=== PATIENT | female | born 1945 | race Caucasian/White ===

== ENCOUNTER 2016-03-27 20:57 | Outpatient (CLI) | payer MEDICARE ==
[~2016-03-27 20:57] MED LIST: ALPR0.5T7 PO; AMLO5TAB2 PO; ATOR20TA66 PO; BIMA2.5D4 OU; CALC-6 PO; CHLO25TA22 PO; CLON0.1T PO; CYCL10TA9 PO; DICL75TA2 PO; DULO60CA58 PO; FLUT1DIS28 IH; FURO-124 PO; LISI40TA PO; NFNEB10T PO; OXYC-197 PO; POTA-53 PO; PRED10TA22 PO; RT-ALBUINH IH; TIMO5DRO27 OU; TRAM50TA2 PO
--- OUTSIDE RECORDS SUMMARY | 2016-03-27 21:01 | XMS REPORT | Continuity of Care Document ---
Author Author [facility] Organization 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 If you do not see the information that you expected, contact Release of Information in the Health Information Management department at [phone] for further assistance in locating additional records.[facility] Active Allergies and Adverse Reactions No Known Allergies Current Medications Prescription Sig. Disp. Refills Start End Date Status Date LUMIGAN 0.01 % drop Apply 1 Drop to both eyes 10/04/19 Active at bedtime daily. 16 timolol (TIMOPTIC) 0.5 % Apply 1 Drop to both eyes 10/04/19 Active ophthalmic solution daily. 16 cycloSPORINE (RESTASIS) Place 1 Drop into or Active 0.05 % ophthalmic around eye(s) twice emulsion daily. atorvastatin (LIPITOR) 20 Take 20 mg by mouth 10/03/19 Active mg tablet daily. 16 lisinopril (PRINIVIL, Take 40 mg by mouth 10/03/19 Active ZESTRIL) 40 mg tablet daily. 16 chlorthalidone (HYGROTON) Take 25 mg by mouth 10/03/19 Active 25 mg tablet daily. 16 cloNIDine HCl (CATAPRESS) Take 0.1 mg by mouth 10/03/19 Active 0.1 mg tablet twice daily. 16 BYSTOLIC 10 mg tablet Take 10 mg by mouth twice 10/03/19 Active daily[address] (CYMBALTA) Take 60 mg by mouth at 10/03/19 Active 60 mg capsule bedtime daily. [address] Take 75 mg by mouth 10/03/19 Active (VOLTAREN) 75 mg tablet daily. 16 traMADol (ULTRAM) 50 mg Take 50 mg by mouth 10/04/19 Active tablet daily. 16 ALPRAZolam (XANAX) 0.5 mg Take 0.5 mg by mouth at 10/02/19 Active tablet bedtime daily. 0.25 to 16 0.5 tab at bedtime sulfamethoxazole-trimetho Take 1 Tab by mouth 10/09/19 Active prim (BACTRIM DS) 800-160 daily. 16 mg tablet aspirin 325 mg tablet Take 325 mg by mouth Active daily. Take with food. metroNIDAZOLE(+) Apply topically to Active (METROCREAM; VITAZOL; affected area twice ROSADAN) 0.75 % topical daily. cream hydrocortisone 1 % Apply topically to Active topical cream affected area twice daily. Active Problems Problem Noted Date Arthritis of foot 10/11/2015 Social History Tobacco Use Types Packs/Day Years Used Date Never Smoker Smokeless Tobacco: Never Used Tobacco Cessation: Counseling Given: Yes Comments: Alcohol Use Drinks/Week oz/Week Comments No Last Filed Vital Signs Vital Sign Reading Time Taken Blood Pressure - - Pulse - - Temperature - - Respiratory Rate - - Height 1.676 m (5' 6") 10/10/2015 1:01 PM CDT Weight 77.111 kg (170 lb) 10/10/2015 1:01 PM CDT Body Mass Index 27.45 10/10/2015 1:01 PM CDT Oxygen Saturation - - Plan of Care Health Maintenance Due Date Last Done Comments Hepatitis C Screening 1945 Physical (Comprehensive) 06/13/1954 Exam Pertussis Vaccine 06/13/1958 Tetanus Vaccine 06/13/1964 Breast Cancer Screening 1987 Colorectal Cancer 06/13/1997 Screening Shingles Vaccine 2007 Osteoporosis Screening 06/13/2012 Prevnar/Pneumovax (#1) 06/13/2012 Influenza Vaccine 10/12/2015 Procedures from Last 3 Months Procedure Name Priority Date/Time Associated Diagnosis Comments PROCEDURE RECORD-SCAN 02/06/2016 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 Results from Last 3 Months PROCEDURE RECORD-SCAN (02/06/2016 1:22 PM) Narrative Ordered by an unspecified provider.
== END 2016-03-28 06:40 | disposition home or self-care (01) ==
LOC: SLEEP 20:57
PROVIDERS: ATTEND Nurse Practitioner
DX: G47.10 Hypersomnia, unspecified (principal); R06.83 Snoring; I50.9 Heart failure, unspecified
CPT/HCPCS: 95810

== ENCOUNTER → 2016-05-28 | Outpatient (CLI) | payer MEDICARE ==
--- NOTE | 2016-05-29 18:09 | Diagnostic Imaging Report ---
Bilateral screening mammogram. The current study was also evaluated with a Computer Aided Detection (CAD) system. INDICATION: Screening. No current complaints stated on the questionnaire. COMPARISON: 05/23/15. FINDINGS: The breasts are composed of scattered fibroglandular densities. There is no mass, architectural distortion or suspicious cluster of calcification. Allowing for technique and positional differences, no suspicious change is seen. IMPRESSION: No significant change. ACR BI-RADS Category 2: Benign findings. Result letter will be mailed to the patient. Note: At least 10% of breast cancer is not imaged by mammography. Dictated by: Dictated on workstation # [id number]
== END ==
LOC: RAD 11:00
PROVIDERS: ATTEND Internal Medicine
DX: Z12.31 Encounter for screening mammogram for malignant neoplasm of breast (principal)
CPT/HCPCS: 77067

== ENCOUNTER → 2017-04-22 | Outpatient (CLI) | payer MEDICARE ==
--- NOTE | 2017-04-22 19:03 | Diagnostic Imaging Report ---
Left hip. INDICATION: Hip pain. Two views are obtained. FINDINGS: There is deformity of the pubic rami bilaterally. This would coincide with the findings of the previous CT pelvis exam of 03/18/12 which revealed fractures of the pubic rami. There is no acute bony abnormality identified. There is only mild degenerative disease of the hip joint. The soft tissues are unremarkable. IMPRESSION: There are posttraumatic changes involving the pubic rami but there is no evidence for an acute bony abnormality. Dictated by: Dictated on workstation # [id number]
== END ==
LOC: RAD 14:57
PROVIDERS: ATTEND Physician Assistant
DX: M54.16 Radiculopathy, lumbar region (principal)
CPT/HCPCS: 73502

== ENCOUNTER → 2017-06-26 | Outpatient (CLI) | payer MEDICARE | LOC: CARD 12:21 | PROVIDERS: ATTEND Nurse Practitioner Family | DX: I10 Essential (primary) hypertension (principal); I34.1 Nonrheumatic mitral (valve) prolapse; R06.09 Other forms of dyspnea | CPT/HCPCS: 93306 ==

== ENCOUNTER → 2017-06-30 | Outpatient (CLI) | payer MEDICARE ==
[2017-06-30 15:02] LABS: HEMOGLOBIN 13.2 G/DL (11.5-16.0); MEAN PLATELET VOLUME 8.8 FL (7.4-10.4); RED BLOOD COUNT 4.37 10^6/uL (4.35-5.85); RED CELL DISTRIBUTION WIDTH 12.6 % (10.0-14.5); WHITE BLOOD COUNT 6.1 10^3/uL (4.3-11.0)
[2017-06-30 15:24] LABS: ALANINE AMINOTRANSFERASE 20 U/L (0-55); ALBUMIN 4.2 GM/DL (3.2-4.5); ALKALINE PHOSPHATASE 65 U/L (40-136); BILIRUBIN,TOTAL 0.2 MG/DL (0.1-1.0); BUN/CREATININE RATIO 13; CALCIUM 9.6 MG/DL (8.5-10.1); CARBON DIOXIDE 31 MMOL/L (21-32); CHLORIDE 102 MMOL/L (98-107); GFR ESTIMATED > 60; GLUCOSE 118 MG/DL (70-105); POTASSIUM 3.9 MMOL/L (3.6-5.0); SODIUM 140 MMOL/L (135-145); TOTAL PROTEIN 7.1 GM/DL (6.4-8.2)
--- NOTE | 2017-06-30 16:05 | Diagnostic Imaging Report ---
INDICATION: Preop for ankle replacement surgery. TIME OF EXAM: 3:33 p.m. COMPARISON: Comparison is made with prior chest from 10/31/2015. FINDINGS: The heart size is stable. The lungs are clear of acute infiltrates. No effusion or pneumothorax is detected. IMPRESSION: No acute cardiopulmonary process is detected. Dictated by: Dictated on workstation # [id number]
== END ==
LOC: RAD 14:30
PROVIDERS: ATTEND Orthopaedic Surgery
DX: Z01.818 Encounter for other preprocedural examination (principal)
CPT/HCPCS: 36415; 71045; 80053; 85027

== ENCOUNTER → 2017-09-22 | Outpatient (CLI) | payer MEDICARE ==
[2017-09-22 14:08] LABS: BASOPHILS % (AUTO) 0 % (0-10); EOSINOPHILS # (AUTO) 0.4 10^3/uL (0.0-0.3); EOSINOPHILS % (AUTO) 4 % (0-10); HEMATOCRIT 35 % (35-52); HEMOGLOBIN 11.4 G/DL (11.5-16.0); LYMPHOCYTES % (AUTO) 10 % (12-44); MEAN CORPUSCULAR HEMOGLOBIN 30 PG (25-34); MEAN CORPUSCULAR HGB CONC 33 G/DL (32-36); MEAN CORPUSCULAR VOLUME 90 FL (80-99); MEAN PLATELET VOLUME 9.9 FL (7.4-10.4); MONOCYTES # (AUTO) 0.9 X 10^3 (0.0-1.0); MONOCYTES % (AUTO) 9 % (0-12); NEUTROPHILS # (AUTO) 7.9 X 10^3 (1.8-7.8); NEUTROPHILS % (AUTO) 77 % (42-75); PLATELET COUNT 367 10^3/uL (130-400); RED BLOOD COUNT 3.83 10^6/uL (4.35-5.85); RED CELL DISTRIBUTION WIDTH 12.2 % (10.0-14.5); WHITE BLOOD COUNT 10.3 10^3/uL (4.3-11.0)
[2017-09-22 14:35] LABS: ERYTHROCYTE SEDIMENTATION RATE 125 MM/HR (0-30)
[2017-09-22 17:39] LABS: ALBUMIN 3.7 GM/DL (3.2-4.5); BILIRUBIN,TOTAL 0.3 MG/DL (0.1-1.0); CREATININE SERUM 1.05 MG/DL (0.60-1.30); POTASSIUM 3.1 MMOL/L (3.6-5.0); TOTAL PROTEIN 7.9 GM/DL (6.4-8.2)
== END ==
LOC: HH 08:00
PROVIDERS: ATTEND Internal Medicine
DX: T84.7XXA Infection and inflammatory reaction due to other internal orthopedic prosthetic devices, implants and grafts, initial encounter (principal)
CPT/HCPCS: 80053; 82550; 85025; 85652; 86141

== ENCOUNTER 2017-09-23 15:51 | Emergency (ER) | payer MEDICARE ==
[~2017-09-23] VITALS: Ht 167.6 cm; Wt 72.6 kg
--- OUTSIDE RECORDS SUMMARY | 2017-09-23 16:34 | XMS REPORT | Clinical Summary ---
Author Author [facility] Organization [facility] Address Unknown Phone Unavailable Care Team Providers Care Body Technician/Painter Name Role Phone Joao Mccabe MD Unavailable Vadim Waggoner MD PCP Source Comments Some departments are not documenting in the electronic medical record. If you do not see the information that you expected, contact Release of Information in the Health Information Management department at [phone] for further assistance in locating additional records.[facility] Allergies Active Allergy Reactions Severity Noted Date Comments Cefazolin RASH Medium 08/30/2017 Rash over trunk. Current Medications Prescription Sig. Disp. Refills Start [...] mouth 10/03/19 Active mg tablet daily. [address] (CYMBALTA) Take 90 mg by mouth at 10/03/19 Active 30 mg capsule bedtime daily. 16 ALPRAZolam (XANAX) 0.25 Take 0.25 mg by mouth at 10/02/19 Active mg tablet bedtime daily. 16 aspirin 325 mg tablet Take 325 mg by mouth Active daily. Take with food. ibandronate sodium Administer through vein. Active (BONIVA IV) potassium chloride SR Take 20 mEq by mouth Active (K-DUR) 20 mEq tablet twice daily. Take with a meal and a full glass of water. amLODIPine (NORVASC) 10 Take 10 mg by mouth Active mg tablet daily. acetaminophen (TYLENOL) Take 1,000 mg by mouth Active 500 mg tablet three times daily as needed for Pain. FLAXSEED OIL PO Take 1 tablet by mouth Active twice daily. docusate (COLACE) 100 mg Take 1 capsule by mouth 180 capsule 3 Active capsule twice daily as needed for 18 Constipation. cholecalciferol(+) Take 2,000 Units by mouth Active (VITAMIN D-3) 2,000 unit daily. tablet calcium carbonate/vitamin Take 1 tablet by mouth Active D-3 (OSCAL-500+D) 1250 twice daily with meals. mg/200 unit tablet Calcium Carb 1250mg delivers 500mg elemental Ca metroNIDAZOLE(+) Apply topically to Active (METROCREAM; VITAZOL; affected area daily. ROSADAN) 0.75 % topical cream DAPTOmycin (CUBICIN) 500 Administer 9.5 mL through 1 each 09/02/19 Active mg/10 mL solr vein every 48 hours. 18 Increase to q24h is CrCl improves to > 30 ml/min HYDROcodone/acetaminophen Take 1-2 tablets by mouth 60 tablet 0 Active (NORCO) 5/325 mg tablet every 4 hours as needed 18 for Pain Earliest Fill Date: 09/01/17 rifAMPin (RIFADINE) 300 Take 1 capsule by mouth 0 09/03/19 Active mg capsule twice daily. Duration as 18 directed by Infectious Disease. Take on an empty stomach at least 1 hour before or 2 hours after food. BYSTOLIC 10 mg tablet Take 2 tablets by mouth 09/03/19 Active twice daily. 18 oxycodone(+) (ROXICODONE, Take 1 tablet by mouth 80 tablet 0 09/03/19 Active OXY-IR) 10 mg tablet every 4 hours as needed 18 for Pain ferrous sulfate (FEOSOL, Take 1 tablet by mouth 90 tablet 3 09/03/19 Active FEROSUL) 325 mg (65 mg daily. Take on an empty 18 iron) tablet stomach at least 1 hour before or 2 hours after food. nystatin (MYCOSTATIN) Take 5 mL by mouth four 0 09/03/19 Active 100,000 units/mL oral times daily. 18 suspensionIndications: oral candidiasis nebivolol (BYSTOLIC) 10 Take 2 tablets by mouth 09/03/19 Active mg tablet twice daily. 18 furosemide (LASIX) 40 mg Take 1 tablet by mouth 90 tablet 3 09/03/19 Active tablet every morning. Take 1 18 tablet by mouth every morning cloNIDine (CATAPRESS) 0.2 Take 1 tablet by mouth 180 tablet 3 Active mg tablet twice daily. 18 ranitidine(+) (ZANTAC) Take one tablet by mouth 60 tablet 0 09/23/19 10/23/19 Active 150 mg tabletIndications: twice daily for 30 days. 18 18 Nausea lisinopril (PRINIVIL, Take 40 mg by mouth 10/03/19 09/02/19 Discontin ZESTRIL) 40 mg tablet daily. 16 18 ued cloNIDine HCl (CATAPRESS) Take 0.1 mg by mouth 10/03/19 09/02/19 Discontin 0.1 mg tablet twice daily. 16 18 ued BYSTOLIC 10 mg tablet Take 10 mg by mouth twice 10/03/19 09/03/19 Discontin daily. 16 18 ued furosemide (LASIX) 40 mg Take 40 mg by mouth every 09/02/19 Discontin tablet morning. 18 ued CALCIUM PO Take by mouth. 08/26/19 Discontin 18 ued ergocalciferol (vitamin Take by mouth. 08/26/19 Discontin D2) (VITAMIN D PO) 18 ued oxyCODONE (ROXICODONE, Take 1-2 tablets by mouth 90 tablet 0 07/20/19 08/26/19 Discontin OXY-IR) 5 mg tablet every 3 hours as needed 18 18 ued ondansetron (ZOFRAN) 4 mg Take 1 tablet by mouth 30 tablet 0 07/22/19 08/26/19 Discontin tablet every 8 hours as needed 18 18 ued for Nausea or Vomiting. traMADol (ULTRAM) 50 mg Take 1 tablet by mouth 75 tablet 0 08/08/19 09/02/19 Discontin tablet every 6 hours as needed 18 18 ued for Pain. HYDROcodone/acetaminophen Take 1-2 tablets by mouth 09/02/19 Discontin (NORCO) 5/325 mg tablet every 4 hours as needed 18 ued for Pain cloNIDine (CATAPRESS) 0.2 Take 1 tablet by mouth 180 tablet 3 09/03/19 Discontin mg tablet twice daily. 18 18 ued furosemide (LASIX) 40 mg Take 1 tablet by mouth 90 tablet 3 09/02/19 09/03/19 Discontin tablet every morning. Take twice 18 18 ued daily for 1 week after discharge, decrease back to daily on 09/08/17 lisinopril (PRINIVIL, Hold until renal function 1 tablet 0 09/02/19 09/03/19 Discontin ZESTRIL) 40 mg tablet improves, follow up with 18 18 ued PCP cloNIDine (CATAPRESS) 0.2 Take 1 tablet by mouth 180 tablet 3 09/03/19 Discontin mg tablet twice daily. 18 18 ued Active Problems Problem Noted Date Wound infection 08/22/2017 Ankle arthritis 07/01/2017 Overview: Added automatically from request for surgery [id number] Arthritis of left foot 07/01/2017 Overview: Added automatically from request for surgery [id number] Arthritis of foot 10/11/2015 Encounters Date Type Specialty Care Team Description 09/23/2017 Outpt. Infectious Diseases Karina August, DO Antibiotic Therapy 09/22/2017 Telephone Infectious Diseases Karina August, DO Outpatient Antibiotic Therapy (Opat) 09/18/2017 Telephone Infectious Diseases Karina August, DO Outpatient Antibiotic Therapy (Opat) 09/16/2017 Office Visit Infectious Diseases Karina August, Wound infection (Primary Dx); Hardware complicating wound infection, subsequent encounter 09/16/2017 [facility] Radiology Joao Mccabe MD Arrived Encounter 09/16/2017 [facility] Radiology Joao Mccabe MD Arrived Encounter 09/16/2017 Office Visit Orthopedic Surgery Joao Mccabe MD Pain ( Primary Dx); Arthritis of foot 09/15/2017 Outpt. Infectious Diseases Karina August, Antibiotic Therapy 09/10/2017 Outpt. Infectious Diseases Karina August, DO Antibiotic Therapy 09/03/2017 Outpt. Infectious Diseases Tamiko Vargas MD Antibiotic Therapy 08/26/2017 Anesthesia Denisse Patton CRNA Event 08/26/2017 Procedure Pass 08/26/2017 Surgery Joao Mccabe MD DEBRIDEMENT LOWER EXTREMITY, ankle poly exchange 08/23/2017 Procedure Pass 08/23/2017 Surgery Cristobal Neely MD DEBRIDEMENT LOWER EXTREMITY, ANKLE ARTRHROTOMY 08/22/2017 [facility] Medicine Grady Truong MD Wound infection - Encounter Cristobal Neely MD 09/02/2017 Joao Mccabe MD 08/22/2017 Anesthesia Elaina Hamilton SRNA Event 08/07/2017 [facility] Radiology Joao Mccabe MD Encounter 08/07/2017 Office Visit Orthopedic Surgery Joao Mccabe MD Ankle arthritis (Primary Dx) 08/06/2017 Orders Only Orthopedic Surgery Joao Mccabe MD Right foot pain (Primary Dx); Right ankle pain, unspecified chronicity 07/24/2017 Office Visit Orthopedic Surgery Joao Mccabe MD Ankle arthritis (Primary Dx) 07/21/2017 Orders Only Orthopedic Surgery Joao Mccabe MD 07/21/2017 Telephone Anesthesiology Saritha Chambers MD Follow-up Phone Call 07/20/2017 Telephone Anesthesiology Nicholas Boateng MD Follow-up Phone Call 07/19/2017 Pharmacy Visit 07/18/2017 [facility] Family Medicine Joao Mccabe MD Ankle arthritis - Encounter 07/19/2017 07/18/2017 Procedure Pass 07/18/2017 Surgery Joao Mccabe MD ARTHROPLASTY REPLACEMENT TOTAL ANKLE (PROPHECY #[id number]) 07/17/2017 Anesthesia Rema Pak Event MD 06/30/2017 Prep for Case Orthopedic Surgery Joao Mccabe MD Ankle arthritis (Primary Dx); Arthritis of left foot 06/26/2017 Telephone Orthopedic Surgery Joao Mccabe MD Other from Last 3 Months Family History Medical History Relation Name Comments Arthritis-rheumatoid Father Collagen Disease Father Osteoporosis Father Cancer Mother Hip Fracture Mother Osteoporosis Mother Relation Name Status Comments Father Mother Social History Tobacco Use Types Packs/Day Years Used Date Never Smoker Smokeless Tobacco: Never Used Tobacco Cessation: Counseling Given: Yes Alcohol Use Drinks/Week oz/Week Comments No Sex Assigned at Date Recorded Not on file Last Filed Vital Signs Vital Sign Reading Time Taken Blood Pressure 147/83 09/16/2017 12:57 PM CDT Pulse 73 09/16/2017 12:57 PM CDT Temperature 36.8 C (98.2 F) 09/16/2017 12:57 PM CDT Respiratory Rate - - Oxygen Saturation 98% 09/02/2017 5:10 AM CDT Inhaled Oxygen - - Concentration Weight 72.6 kg (160 lb 0.9 oz) 09/16/2017 12:57 PM CDT Height 171.4 cm (5' 7.48") 09/16/2017 12:18 PM CDT Body Mass Index 24.71 09/16/2017 12:57 PM CDT Plan of Treatment Date Type Specialty Care Team Description 09/16/2017 Procedure Pass Orthopedic Surgery Health Maintenance Due Date Last Done Comments HEPATITIS C SCREENING 1945 PHYSICAL (COMPREHENSIVE) 06/13/1954 EXAM PERTUSSIS VACCINE 06/13/1958 TETANUS VACCINE 06/13/1964 BREAST CANCER SCREENING 1987 COLORECTAL CANCER 06/13/1997 SCREENING OSTEOPOROSIS SCREENING 06/13/2012 PNEUMONIA (PCV13/PPSV23) 06/13/2012 VACCINES (1 of 2 - PCV13) SHINGLES RECOMBINANT 05/13/2017 03/18/2017 VACCINE (2 of 2) INFLUENZA VACCINE 11/10/2017 11/01/2015, 01/19/2009, 12/02/2007, Additional history exists Implants Implanted Type Area Legal Manager Device Expiration Model / Identifier Date Serial / Lot [facility] Knee Replacement Plate,Screws Lumbar Screw Locking T10 3.5 X 28mm - Sn/A Right: EBENEZER [id number] / Implanted: Qty: 1 on 07/18/2017 by Ankle N/A / Joao Mccabe MD N/A Screw Locking T10 3.5 X 24mm - Sn/A Right: EBENEZER [id number] / Implanted: Qty: 1 on 07/18/2017 by Ankle N/A / Joao Mccabe MD N/A Screw 4.1x50mm Cp T10 - Sn/A Right: EBENEZER:EBENEZER [id number] / Implanted: Qty: 1 on 07/18/2017 by Ankle SPINE N/A / Joao Mccabe MD N/A Screw Bone T10 Full Thread 3.5mm / Right: EBENEZER:EBENEZER [id number] / L28mm - Sn/A Ankle INSTR N/A / Implanted: Qty: 2 on 07/18/2017 by N/A Joao Mccabe MD Pin Fixation 2.4mm Steinmann - Sna UNIDENTIFIED [id number] / Implanted: Qty: 1 on 07/18/2017 by MFG NA / Joao Mccabe MD NA Graft Bone 20ga Infuse Medium Right: MEDTRONIC:SOFAM 05/10/2018 [id number] / Bovine Collagen Rhbmp-2 Vial - Ankle OR DANEK [id number] / Implanted: Qty: 1 on 07/18/2017 by [id number] Howard MD Tray Tibial Infinity 3 Standard Right: UNIDENTIFIED 05/06/2025 [id number] / Ankle Component - [id number] Ankle MFG [id number] / Implanted: Qty: 1 on 07/18/2017 by [id number] Joao Mccabe MD Component Talar Inbone 2 Dome Ankle Right: [facility] 04/22/2025 [id number] Sulcus - [id number] Ankle / Implanted: Qty: 1 on 07/18/2017 by [id number] / Joao Mccabe MD [id number] Stem Talar 1 Large 10mm Ankle - Right: UNIDENTIFIED 06/09/2025 [id number] Ankle MFG / Implanted: Qty: 1 on 07/18/2017 by [id number] / Joao Mccabe MD [id number] Plate Midfoot Cp Short - Sn/A Right: EBENEZER:EBENEZER [id number] / Implanted: Qty: 1 on 07/18/2017 by Ankle SPINE N/A / Joao Mccabe MD N/A Insert Tibial 2+ 8mm Ankle Poly Right: UNIDENTIFIED 01/25/2025 [id number] / Infinity - Sn/A Ankle MFG N/A / Implanted: Qty: 1 on 08/26/2017 [id number] Explanted Type Area Legal Manager Device Expiration Model / Identifier Date Serial / Lot 7 Screws And 1 Plate Right: / Explanted: Qty: 1 on 07/18/2017 by Ankle N/A / Joao Mccabe MD N/A Insert Tibial 2+ 8mm Ankle Poly Right: UNIDENTIFIED 01/25/2025 [id number] / Infinity - [id number] Ankle MFG [id number] / Implanted: Qty: 1 on 07/18/2017 by [id number] Joao Mccabe MD Explanted: Qty: 1 on 08/26/2017 Procedures Procedure Name Priority Date/Time Associated Diagnosis Comments ECG-SCAN 09/10/2017 Results for this 11:46 AM CDT procedure are in the results section. ECG-SCAN 09/03/2017 Results for this 4:16 PM CDT procedure are in the results section. ECG-SCAN 09/03/2017 Results for this 3:21 PM CDT procedure are in the results section. TELEMETRY STRIPS-SCAN 09/03/2017 Results for this 3:21 PM CDT procedure are in the results section. CONSULT IV THERAPY TEAM Routine 08/27/2017 12:16 AM CDT ANESTHESIA PERIPHERAL Routine 08/26/2017 Results for this NERVE BLOCK 4:59 PM CDT procedure are in the results section. DEBRIDEMENT LOWER 08/26/2017 Wound infection EXTREMITY 10:00 AM CDT ECG-SCAN 08/24/2017 Results for this 7:40 PM CDT procedure are in the results section. DEBRIDEMENT LOWER 08/23/2017 Wound infection EXTREMITY 10:05 AM CDT ECG-SCAN 07/22/2017 Results for this 11:45 AM CDT procedure are in the results section. ANESTHESIA PERIPHERAL Routine 07/18/2017 Results for this NERVE BLOCK 6:53 PM CDT procedure are in the results section. ANESTHESIA PERIPHERAL Routine 07/18/2017 Results for this NERVE BLOCK 1:54 PM CDT procedure are in the results section. ARTHRODESIS FOOT 07/18/2017 Ankle arthritis 11:55 AM CDT REMOVAL HARDWARE -DEEP 07/18/2017 Ankle arthritis 11:55 AM CDT ARTHROPLASTY REPLACEMENT 07/18/2017 Ankle arthritis TOTAL ANKLE 11:55 AM CDT from Last 3 Months Results * SED RATE (09/22/2017 1:40 PM) Only the most recent of 4 results within the time period is included. Sed Rate -ESR 125 OTHER OUTSIDE LAB Specimen Blood - Blood Performing Organization Address City/[facility]/Zipcode Phone Number OTHER OUTSIDE LAB * PLATELET COUNT (09/22/2017 1:40 PM) Only the most recent of 3 results within the time period is included. Platelet Count 367 OTHER OUTSIDE LAB Specimen Blood - Blood Performing Organization Address City/[facility]/Zipcode Phone Number OTHER OUTSIDE LAB * CBC (09/22/2017 1:40 PM) Only the most recent of 9 results within the time period is included. White Blood Cells 10.3 OTHER OUTSIDE LAB Specimen Blood - Blood Performing Organization Address City/[facility]/Zipcode Phone Number OTHER OUTSIDE LAB * HEMOGLOBIN (09/22/2017 1:40 PM) Only the most recent of 3 results within the time period is included. Hemoglobin 11.4 OTHER OUTSIDE LAB Specimen Blood - Blood Narrative Performed At Performing Organization Address City/State/Zipcode Phone Number OTHER OUTSIDE LAB * C REACTIVE PROTEIN (CRP) (09/22/2017 1:40 PM) Only the most recent of 4 results within the time period is included. C-Reactive Protein 9.57mg/dLhigh sensitivity OTHER OUTSIDE LAB Specimen Blood - Blood Performing Organization Address City/[facility]/Zipcode Phone Number OTHER OUTSIDE LAB * BUN (09/22/2017 1:40 PM) Only the most recent of 3 results within the time period is included. Blood Urea Nitrogen 22 OTHER OUTSIDE LAB Specimen Blood - Blood Performing Organization Address City/[facility] Phone Number [facility] * ALT (SGPT) (09/22/2017 1:40 PM) Only the most recent of 3 results within the time period is included. ALT (SGPT) 60 OTHER OUTSIDE LAB Specimen Blood - Blood Performing Organization Address City/[facility] Phone Number OTHER OUT[facility]IDE LAB * AST (SGOT) (09/22/2017 1:40 PM) Only the most recent of 3 results within the time period is included. AST (SGOT) 48 OTHER OUTSIDE LAB Specimen Blood - Blood Performing Organization Address City/[facility]/[place] Phone Number OTHER OUTSIDE LAB * POTASSIUM (09/22/2017 1:40 PM) Only the most recent of 3 results within the time period is included. Potassium 3.1 OTHER OUTSIDE LAB Specimen Blood - Blood Performing Organization Address City/[facility] Phone Number OTHER OUTSIDE LAB * ALK PHOS TOTAL (09/22/2017 1:40 PM) Only the most recent of 3 results within the time period is included. Alk Phosphatase 107 OTHER OUTSIDE LAB Specimen Blood - Blood Performing Organization Address City/[facility] Phone Number OTHER OUTSIDE LAB * CREATININE (09/22/2017 1:40 PM) Only the most recent of 3 results within the time period is included. Creatinine 1.05 OTHER OUTSIDE LAB Specimen Blood - Blood Performing Organization Address City/[facility]/Zipcode Phone Number OTHER OUTSIDE LAB * CREATINE KINASE-CPK (09/22/2017 1:40 PM) Only the most recent of 5 results within the time period is included. Creatine Kinase 40 OTHER OUTSIDE LAB Specimen Blood - Blood Performing Organization Address City/State/Zipcode Phone Number OTHER OUTSIDE LAB * FOOT COMP MIN 3 VIEWS RIGHT (09/16/2017 1:00 PM) Only the most recent of 2 results within the time period is included. Impressions Performed At Findings/Impression: [facility] 1.The total ankle arthroplasty components are normal based on the lateral view.. This is incompletely evaluated on the current exam. 2.Persistent dorsal plate and multiple screw fixation of the talonavicular articulation consistent with operative fusion of the talonavicular articulation. There is prominent lucency at the talonavicular articulation without significant bony bridging. Suggestion of mild osseous bridging along the dorsal aspect of the talonavicular articulation incompletely evaluated. 3.Bone donor site within the posterior calcaneus. 4.Persistent severe first MTP osteoarthritis. Accutwist within the medullary space of the first proximal phalanx. 5.No fractures or osseous lesions. Finalized by Dawit Mckeon M.D. on 09/16/2017 1:56 PM. Dictated by Dawit Mckeon M.D. on 09/16/2017 1:51 PM. Narrative Performed At Right foot 3 views. [facility] History: Right foot pain. Compared to August 07, 2017. Procedure Note Interface, Radiant Results - 09/16/2017 1:59 PM CDT Right foot 3 views. History: Right foot pain. Compared to August 07, 2017. IMPRESSION Findings/Impression: 1. The total ankle arthroplasty components are normal based on the lateral view.. This is incompletely evaluated on the current exam. 2. Persistent dorsal plate and multiple screw fixation of the talonavicular articulation consistent with operative fusion of the talonavicular articulation. There is prominent lucency at the talonavicular articulation without significant bony bridging. Suggestion of mild osseous bridging along the dorsal aspect of the talonavicular articulation incompletely evaluated. 3. Bone donor site within the posterior calcaneus. 4. Persistent severe first MTP osteoarthritis. Accutwist within the medullary space of the first proximal phalanx. 5. No fractures or osseous lesions. Finalized by Dawit Mckeon M.D. on 09/16/2017 1:56 PM. Dictated by Dawit Mckeon M.D. on 09/16/2017 1:51 PM. Performing Organization Address City/State/Zipcode Phone Number [facility] * ANKLE MIN 3 VIEWS RIGHT (09/16/2017 12:49 PM) Only the most recent of 3 results within the time period is included. Impressions Performed At Patient is status post total ankle arthroplasty with poly exchange. 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 Orthopedic hardware is stable position. Additionally, there is a short dorsal plate over the talar neck region with fixation screws in place. Linear lucency is present through the talar neck region. Additional partially threaded fixation screw is seen extending along the superior one third of the talar neck into the body of the talus. Likely bone graft site within the posterior calcaneus. Previously noted cast material and skin maria isabel have been removed. Mild soft tissue swelling. Remote fracture deformity of mid tibia. Finalized by FEI SCHULZ on 09/16/2017 2:10 PM. Dictated by FEI SCHULZ on 09/16/2017 1:25 PM. Narrative Performed At ANKLE MIN 3 VIEWS RIGHT [facility] Indication: pain Comparison: Right ankle radiographs from 08/28/2017 Technique: 3 views Procedure Note Interface, Radiant Results - 09/16/2017 2:13 PM CDT ANKLE MIN 3 VIEWS RIGHT Indication: pain Comparison: Right ankle radiographs from 08/28/2017 Technique: 3 views IMPRESSION Patient is status post total ankle arthroplasty with poly exchange. 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 Orthopedic hardware is stable position. Additionally, there is a short dorsal plate over the talar neck region with fixation screws in place. Linear lucency is present through the talar neck region. Additional partially threaded fixation screw is seen extending along the superior one third of the talar neck into the body of the talus. Likely bone graft site within the posterior calcaneus. Previously noted cast material and skin maria isabel have been removed. Mild soft tissue swelling. Remote fracture deformity of mid tibia. Finalized by FEI SCHULZ on 09/16/2017 2:10 PM. Dictated by FEI SCHULZ on 09/16/2017 1:25 PM. Performing Organization Address City/State/Zipcode Phone Number [facility] RES[facility] * ECG-SCAN (09/10/2017 11:46 AM) Narrative Performed At Ordered by an unspecified provider. * ECG-SCAN (09/03/2017 4:16 PM) Narrative Performed At Ordered by an unspecified provider. * ECG-SCAN (09/03/2017 3:21 PM) Narrative Performed At Ordered by an unspecified provider. * TELEMETRY STRIPS-SCAN (09/03/2017 3:21 PM) Narrative Performed At Ordered by an unspecified provider. * CBC AND DIFF (09/02/2017 3:30 AM) Only the most recent of 8 results within the time period is included. White Blood Cells 10.4 4.5 - 11.0 K/UL [facility] RBC 3.27 (L) 4.0 - 5.0 M/UL [facility] Hemoglobin 9.7 (L) 12.0 - 15.0 GM/DL [facility] Hematocrit 29.6 (L) 36 - 45 % [facility] MCV 90.6 80 - 100 FL [facility] MCH 29.7 26 - 34 PG [facility] MCHC 32.7 32.0 - 36.0 G/DL [facility] RDW 13.3 11 - 15 % [facility] Platelet Count 392 150 - 400 K/UL [facility] MPV 6.9 (L) 7 - 11 FL [facility] Neutrophils 78 (H) 41 - 77 % [facility] Lymphocytes 8 (L) 24 - 44 % [facility] Monocytes 11 4 - 12 % [facility] Eosinophils 3 0 - 5 % [facility] Basophils 0 0 - 2 % [facility] Absolute Neutrophil Count 8.10 (H) 1.8 - 7.0 K/UL [facility] Absolute Lymph Count 0.90 (L) 1.0 - 4.8 K/UL [facility] Absolute Monocyte Count 1.10 (H) 0 - 0.80 K/UL [facility] Absolute Eosinophil Count 0.30 0 - 0.45 K/UL [facility] Absolute Basophil Count 0.00 0 - 0.20 K/UL [facility] Specimen Blood Performing Organization Address City/State/Zipcode Phone Number [facility] [address] [place] [address] * LIVER FUNCTION PANEL (09/02/2017 3:30 AM) Total Bilirubin 0.4 0.3 - 1.2 MG/DL [facility] Bilirubin, Direct 0.1 <0.4 MG/DL [facility] Albumin 3.1 (L) 3.5 - 5.0 G/DL [facility] Alk Phosphatase 86 25 - 110 U/L [facility] AST (SGOT) 32 7 - 40 U/L [facility] ALT (SGPT) 15 7 - 56 U/L MA[facility] LAB Total Protein 6.5 6.0 - 8.0 G/DL [facility] Performing Organization Address [facility] Phone Number [facility] [address] [place] [address] * BASIC METABOLIC PANEL (09/02/2017 3:30 AM) Only the most recent of 12 results within the time period is included. Sodium 136 (L) 137 - 147 MMOL/L MAIN LAB Potassium 3.5 3.5 - 5.1 MMOL/L [facility] Chloride 98 98 - 110 MMOL/L [facility] CO2 29 21 - 30 MMOL/L [facility] Anion Gap 9 3 - 12 [facility] LAB Glucose 110 (H) 70 - 100 MG/DL [facility] Blood Urea Nitrogen 32 (H) 7 - 25 MG/DL [facility] Creatinine 1.89 (H) 0.4 - 1.00 MG/DL [facility] Calcium 9.0 8.5 - 10.6 MG/DL [facility] eGFR Non 26 (L) >60 mL/min [facility] Comment: The eGFR is not validated for use in drug dosing adjustments.Continue to use estimated creatinine clearance per dosing reference text.Please contact the Clinical Pharmacist for questions. eGFR 32 (L) >60 mL/min [facility] LAB Comment: The eGFR is not validated for use in drug dosing adjustments.Continue to use estimated creatinine clearance per dosing reference text.Please contact the Clinical Pharmacist for questions. Specimen Blood Performing Organization Address [facility] [facility] [place] Phone Number [facility] [address] [place] [address] * C DIFFICILE BY PCR (09/01/2017 2:50 PM) Only the most recent of 2 results within the time period is included. Battery Name C DIFFICILE PCR MAIN LAB Specimen Description FECES MAIN LAB Special Requests NONE MAIN LAB C. Difficile Toxin B PCR NEGATIVE-wait 7 days to repeat MAIN LAB test Report Status FINAL MAIN LAB 09/01/2017 Specimen Feces Performing Organization Address City/[facility] Phone Number [facility] [address] [place] [address] * BNP (B-TYPE NATRIURETIC PEPTI) (09/01/2017 12:35 PM) B Type Natriuretic 204.0 (H) 0 - 100 PG/ML MAIN LAB Peptide Specimen Blood Performing Organization Address [facility] [place] Phone Number [facility] [address] [place] [address] * CHEST SINGLE VIEW (08/30/2017 10:27 AM) Only the most recent of 4 results within the time period is included. Impressions Performed At No pneumothorax, focal consolidation or pleural effusions identified. Heart and [facility] mediastinum are within the normal limits. Normal pulmonary vascularity. Trachea is central. The regional osseous structures are grossly intact. Right PICC is in similar position. Finalized by FEI SCHULZ on 08/30/2017 11:51 AM. Dictated by FEI SCHULZ on 08/30/2017 11:51 AM. Narrative Performed At CHEST SINGLE VIEW [facility] Indication: Tachypnec Comparison: Chest radiograph from 08/28/17 Technique: 1 view Procedure Note Interface, Radiant Results - 08/30/2017 11:54 AM CDT CHEST SINGLE VIEW Indication: Tachypnec Comparison: Chest radiograph from 08/28/17 Technique: 1 view IMPRESSION No pneumothorax, focal consolidation or pleural effusions identified. Heart and mediastinum are within the normal limits. Normal pulmonary vascularity. Trachea is central. The regional osseous structures are grossly intact. Right PICC is in similar position. Finalized by FEI SCHULZ on 08/30/2017 11:51 AM. Dictated by FEI SCHULZ on 08/30/2017 11:51 AM. Performing Organization Address City/[facility] Phone Number [facility] * METASTATIC SKELETAL SURVEY (08/28/2017 9:48 AM) Impressions Performed At Diffuse bone demineralization. [facility] RES[facility] Lateral skull: No lytic lesions. Thoracic spine: Diffuse bone demineralization. Mild multilevel degenerative endplate changes. No lytic lesions. Atherosclerosis of the thoracic aorta. Lumbar spine: L5-S1 posterior instrumentation and interbody fusion with intact orthopedic hardware. Minimal degenerative endplate changes in the lumbar spine. No compression fracture. No lytic lesions. Pelvis: Minimal bilateral SI joint osteoarthrosis. Sacral arcades are preserved. Hip joints are congruent. The cortical irregularity of the bilateral superior and inferior pubic rami is unchanged and likely sequela of remote injury. Left humerus: No lytic lesions. Right humerus: No lytic lesions. Right forearm: No lytic lesions. Mild to moderate first CMC and triscaphe joint osteoarthrosis. 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 Left forearm: No lytic lesions. Moderate triscaphe osteoarthrosis. Moderate first IP osteoarthrosis. Moderate to marked fifth PIP osteoarthrosis. Left femur: No lytic lesions. Mild to moderate medial and lateral joint compartment osteoarthrosis. Right femur: No lytic lesions. Total right knee arthroplasty without complications where seen. Right tib-fib: Overlying cast material obscures fine osseous details. Patient is status post total ankle arthroplasty with orthopedic hardware in stable position where seen. Overlying skin maria isabel are seen. Likely remote fracture deformity of the proximal fibula metadiaphysis. Left tib-fib: No lytic lesions. 1. No radiographic evidence of lytic lesions. 2. Postoperative, posttraumatic and degenerative changes as above. Finalized by FEI SCHULZ on 08/28/2017 10:14 AM. Dictated by FEI SCHULZ on 08/28/2017 10:06 AM. Narrative Performed At METASTATIC SKELETAL SURVEY [facility] Indication: MGUS, rule out multiple myeloma Comparison: None Technique: 17 images Procedure Note Interface, Radiant Results - 08/28/2017 10:17 AM CDT METASTATIC SKELETAL SURVEY Indication: MGUS, rule out multiple myeloma Comparison: None Technique: 17 images IMPRESSION Diffuse bone demineralization. Lateral skull: No lytic lesions. Thoracic spine: Diffuse bone demineralization. Mild multilevel degenerative endplate changes. No lytic lesions. Atherosclerosis of the thoracic aorta. Lumbar spine: L5-S1 posterior instrumentation and interbody fusion with intact orthopedic hardware. Minimal degenerative endplate changes in the lumbar spine. No compression fracture. No lytic lesions. Pelvis: Minimal bilateral SI joint osteoarthrosis. Sacral arcades are preserved. Hip joints are congruent. The cortical irregularity of the bilateral superior and inferior pubic rami is unchanged and likely sequela of remote injury. Left humerus: No lytic lesions. Right humerus: No lytic lesions. Right forearm: No lytic lesions. Mild to moderate first CMC and triscaphe joint osteoarthrosis. 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 Left forearm: No lytic lesions. Moderate triscaphe osteoarthrosis. Moderate first IP osteoarthrosis. Moderate to marked fifth PIP osteoarthrosis. Left femur: No lytic lesions. Mild to moderate medial and lateral joint compartment osteoarthrosis. Right femur: No lytic lesions. Total right knee arthroplasty without complications where seen. Right tib-fib: Overlying cast material obscures fine osseous details. Patient is status post total ankle arthroplasty with orthopedic hardware in stable position where seen. Overlying skin maria isabel are seen. Likely remote fracture deformity of the proximal fibula metadiaphysis. Left tib-fib: No lytic lesions. 1. No radiographic evidence of lytic lesions. 2. Postoperative, posttraumatic and degenerative changes as above. Finalized by FEI SCHULZ on 08/28/2017 10:14 AM. Dictated by FEI SCHULZ on 08/28/2017 10:06 AM. Performing Organization Address [facility] [place]/[facility] Phone Number [facility] * ABDOMEN AP ONLY (08/28/2017 9:48 AM) Only the most recent of 2 results within the time period is included. Impressions Performed At No bowel obstruction. [facility] RES[facility] Finalized by Bentley Davis D.O. on 08/28/2017 10:06 AM. Dictated by Bentley Davis D.O. on 08/28/2017 10:05 AM. Narrative Performed At Supine abdomen [facility] RES[facility] Clinical history: Abdominal pain Comparison: 2 days earlier Findings: Prior lower lumbar posterior fixation. The bowel gas pattern remains nonobstructive. Procedure Note Interface, Radiant Results - 08/28/2017 10:09 AM CDT Supine abdomen Clinical history: Abdominal pain Comparison: 2 days earlier Findings: Prior lower lumbar posterior fixation. The bowel gas pattern remains nonobstructive. IMPRESSION No bowel obstruction. Finalized by Bentley Davis D.O. on 08/28/2017 10:06 AM. Dictated by Bentley Davis D.O. on 08/28/2017 10:05 AM. Performing Organization Address [facility] [place]/[facility] Phone Number [facility] * MANUAL DIFF (08/28/2017 3:04 AM) Segmented Neutrophils 83 (H) 41 - 77 % [facility] Lymphocytes 6 (L) 24 - 44 % [facility] Monocytes 8 4 - 12 % [facility] Eosinophil 2 0 - 5 % [facility] Basophil 1 0 - 2 % [facility] Platelet Estimate NORMAL [facility] RBC Morph NORMAL [facility] Performing Organization Address [facility] [place]/[facility] Phone Number [facility] [address] [place] [address] * UA REFLEX CULTURE LABEL (08/27/2017 3:59 PM) Only the most recent of 2 results within the time period is included. UA Reflex Culture LAB LABEL [facility] Specimen Urine Performing Organization Address [facility] [place]/[facility] Phone Number [facility] [address] [place] [address] * URINALYSIS MICROSCOPIC REFLEX TO CULTURE (08/27/2017 3:59 PM) Only the most recent of 2 results within the time period is included. WBCs,UA 2-10 0 - 2 /HPF [facility] RBCs,UA 2-10 0 - 3 /HPF [facility] Comment,UA Urine submitted for reflex [facility] culture if criteria are met:WBC>10, positive nitrite and/or >=1+ leukocyte esterase. If quantity is not sufficient, an addendum will follow. MucousUA TRACE [facility] Bacteria,UA FEW (A) NEG-NEG [facility] Squamous Epithelial Cells 0-2 0 - 5 [facility] Specimen Urine Performing Organization Address [facility] Phone Number [facility] [address] [place] [address] * URINALYSIS DIPSTICK REFLEX TO CULTURE (08/27/2017 3:59 PM) Only the most recent of 2 results within the time period is included. Color,UA YELLOW [facility] Turbidity,UA CLEAR CLEAR-CLEAR [facility] Specific Remer-Urine 1.004 1.003 - 1.035 [facility] pH,UA 5.0 5.0 - 8.0 [facility] Protein,UA NEG NEG-NEG [facility] Glucose,UA NEG NEG-NEG [facility] Ketones,UA NEG NEG-NEG [facility] Bilirubin,UA NEG NEG-NEG [facility] Blood,UA 1+ (A) NEG-NEG [facility] Urobilinogen,UA NORMAL NORM-NORMAL [facility] Nitrite,UA NEG NEG-NEG [facility] Leukocytes,UA 1+ (A) NEG-NEG [facility] Urine Ascorbic Acid, UA NEG NEG-NEG [facility] Specimen Urine Performing Organization Address [facility] [place] Phone Number [facility] [address] [place] [address] * CULTURE-URINE W/SENSITIVITY (08/27/2017 3:59 PM) Battery Name URINE CULTURE [facility] Specimen Description URINE MAIN LAB Special Requests NONE [facility] Culture NO GROWTH [facility] Report Status FINAL [facility] 08/28/2017 Specimen Urine Performing Organization Address [facility] [place] Phone Number MAIN LAB [address] [place] [address] * IMMUNOGLOBULINS-IGA,IGG,IGM (08/27/2017 12:07 PM) IgG 913 762 - 1,488 MG/DL [facility] IgA 187 70 - 390 MG/DL [facility] IgM 131 38 - 328 MG/DL MAIN LAB Specimen Blood Performing Organization Address [facility] [place] Phone Number MAIN LAB [address] [place] [address] * ANESTHESIA PERIPHERAL NERVE BLOCK (08/26/2017 4:59 PM) Narrative Performed At Mitchel Parker DO 08/26/2017 11:59 AM Anesthesia Procedure: Peripheral Nerve Block PERIPHERAL NERVE BLOCK Date/Time: 08/26/2017 10:25 AM Patient location: pre-op Reason for block: at surgeon's request and post-op pain management Preprocedure checklist performed: 2 patient identifiers, risks & benefits discussed, patient evaluated, timeout performed, consent obtained, patient being monitored and sterile drape Sterile technique: - Proper hand washing - Cap, mask - Sterile gloves - Skin prep for antisepsis Peripheral Nerve Block Procedure Patient position: left lateral decubitus Prep: ChloraPrep Monitoring: BP, EKG and continuous pulse ox Block type: sciatic Laterality: right Injection technique: single-shot Procedures: ultrasound guided Ultrasound image captured Local infiltration: lidocaine Needle/cathether: Needle type: Stimuplex Needle gauge: 22 G; Needle length: 4 in Needle location: anatomical landmarks and ultrasound guidance Procedure Outcome Injection assessment: negative aspiration for heme, no paresthesia on injection, incremental injection and local visualized surrounding nerve on ultrasound Observations: adequate block, patient sedated but conversant throughout block, patient tolerated the procedure well with no immediate complications and comfortable throughout block Refer to nursing documentation for vitals and monitoring data during procedure. Performed by: MITCHEL PARKER Authorized by: POZEK, CHETAN J * URINE COLLECTION (08/26/2017 3:52 PM) Collection Period, Urine 24.0 MAIN LAB Volume, Urine 1,530 MLS MAIN LAB Performing Organization Address [facility] Phone Number MAIN LAB [address] [place] [address] * IMMUNOFIXATION URINE 24 HOUR (08/26/2017 3:52 PM) Immuno Fix-URINE FREE KAPPA LIGHT CHAIN [facility] Pathologist Signature INTERPRETED BY SELENE DIANE M.D. [facility] By the PATH SIGNATURE ABOVE, I attest that I have personally formulated the final interpretation expressed in this report and that the above diagnosis is based upon my examination of the slides and/or other material indicated in this report. Specimen Urine - Urine Performing Organization Address [facility] Phone Number [facility] [address] [place] [phone] * PROTEIN/CR RATIO,UR RAN (08/26/2017 3:51 PM) Protein, Random 21 MG/DL MAIN LAB Creatinine, Random 53 MG/DL MAIN LAB Protein/CR ratio 0.4 [facility] Specimen Urine - Urine Performing Organization Address [facility] Phone Number [facility] [address] [place] [phone] * MICROALB/CR RATIO-URINE RANDOM (08/26/2017 3:51 PM) Microalbumin, Random 77.2 (H) <19 MCG/ML [facility] Creatinine, Random 53 MG/DL MAIN LAB Microalbumin/CR ratio 145.66 (H)Comment: NOTE NEW <30 ug/mg MAIN LAB Urine REFERENCE RANGES Specimen Urine - Urine Performing Organization Address [facility] Phone Number MAIN LAB [address] [place] [address] * GRAM STAIN (08/26/2017 12:09 PM) Only the most recent of 5 results within the time period is included. Battery Name GRAM STAIN MAIN LAB Specimen Description TISSUE MAIN LAB LEFT ANKLE Special Requests NONE MAIN LAB Gram Stain RARE MAIN LAB NEUTROPHILS NO ORGANISMS SEEN Report Status FINAL MAIN LAB 08/26/2017 Specimen Tissue - Tissue Performing Organization Address [facility] [place]/[facility]/Zipcode Phone Number [facility] [address] [place] [address] * CULTURE-WOUND/TISSUE/FLUID(AEROBIC ONLY)W/SENSITIVITY (08/26/2017 12:09 PM) Only the most recent of 6 results within the time period is included. Battery Name ROUTINE CULTURE [facility] Specimen Description TISSUE [facility] LEFT ANKLE Special Requests NONE [facility] Direct Gram Stain RARE [facility] NEUTROPHILS NO ORGANISMS SEEN Culture 1 Byron [facility] STAPHYLOCOCCUS AUREUS See previous susceptibility Report Status FINAL [facility] 08/29/2017 Specimen Tissue - Tissue Performing Organization Address [facility] [place] Phone Number [facility] [address] [place] [address] * CULTURE-ANAEROBIC (08/26/2017 12:09 PM) Only the most recent of 3 results within the time period is included. Battery Name ANAEROBE CULTURE [facility] Specimen Description TISSUE [facility] LEFT ANKLE Special Requests NONE [facility] Culture NO ANAEROBES ISOLATED [facility] Report Status FINAL [facility] 09/01/2017 Specimen Tissue - Tissue Performing Organization Address [facility] [place] Phone Number [facility] [address] [place] [address] * TOTAL PROTEIN SEP (08/26/2017 4:00 AM) Total Protein 5.3 (L) 6.0 - 8.0 g/dL [facility] Specimen Blood Performing Organization Address [facility] [place] Phone Number [facility] [address] [place] [address] * IMMUNOFIXATION, SERUM (IFES) (08/26/2017 4:00 AM) Immuno Fix-Serum IGG KAPPA PARAPROTEIN [facility] Pathologist Signature INTERPRETED BY SELENE DIANE M.D. [facility] By the PATH SIGNATURE ABOVE, I attest that I have personally formulated the final interpretation expressed in this report and that the above diagnosis is based upon my examination of the slides and/or other material indicated in this report. Performing Organization Address [facility] [place]/[facility] Phone Number [facility] [address] [place] [address] * KAPPA/LAMBDA FREE LIGHT CHAINS (08/26/2017 4:00 AM) Ridge, FLC 7.04 (H) 0.33 - 1.94 MG/DL [facility] Comment: Freelite results should always be interpreted in conjunction with other laboratory tests and clinical evidence.The possibility of Antigen Excess exists and can cause Immunoassays to under estimate very high concentrations of antigen. Any discordant results should be discussed with Dr. Mora. Lambda, FLC 2.44 0.57 - 2.63 MG/DL [facility] Ridge/Lambda FLC 2.89 (H) 0.26 - 1.65 [facility] Specimen Blood Performing Organization Address [facility] [place] Phone Number [facility] [address] [place] [address] * ELECTROPHORESIS-SERUM PROTEIN (08/26/2017 4:00 AM) Total Protein-SEP 5.3 (L) 6.0 - 8.0 G/DL [facility] Albumin % 47.1 (L) 48 - 68 % [facility] Alpha 1 % 8.2 (H) 2 - 6 % [facility] Alpha 2 % 16.8 (H) 5 - 15 % [facility] Beta %,Serum 12.6 9 - 17 % [facility] Gamma % 15.3 9 - 21 % [facility] Paraprotein 0.17 G/DL [facility] Interpretation - SEP SPIKE, PROBABLY MONOCLONAL, IN [facility] BETA/GAMMA REGION(S) Pathologist Signature INTERPRETED BY SELENE DIANE M.D. [facility] By the PATH SIGNATURE ABOVE, I attest that I have personally formulated the final interpretation expressed in this report and that the above diagnosis is based upon my examination of the slides and/or other material indicated in this report. Specimen Blood Performing Organization Address [facility] [place] Cent[facility] Phone Number [facility] [address] [place] [address] * BLOOD TYPE CONFIRMATION - ORDER ONLY IF REQUESTED BY LAB (08/25/2017 7:20 PM) ABO/RH(D) A NEG [facility] Specimen Blood Performing Organization Address [facility] [place] Phone Number [facility] [address] [place] [address] * TYPE & CROSSMATCH (08/25/2017 5:24 PM) Units Ordered 2 [facility] Crossmatch Expires 08/28/2017 [facility] Record Check 2ND TYPE REQUIRED [facility] ABO/RH(D) A NEG [facility] Antibody Screen NEG [facility] Electronic Crossmatch YES [facility] Specimen Blood Performing Organization Address City/[facility]/Zipcode Phone Number MAIN LAB [address] [place] [address] * US RENAL BLADDER LTD (08/25/2017 4:16 PM) Impressions Performed At Unremarkable sonogram of the kidneys and bladder. [facility] Finalized by Cassidy Paula M.D. on 08/25/2017 4:16 PM. Dictated by Cassidy Paula M.D. on 08/25/2017 4:15 PM. Narrative Performed At Ultrasound of the kidneys and bladder [facility] Clinical Indication: MARIELA with bland urine microscopy. Technique: Multiple real-time grayscale sonographic images were obtained through the kidneys and bladder. No prior study is available for direct comparison. Findings: The right kidney measures 9.4 cm in length. The left kidney measures 10.6 cm in length.No hydronephrosis is identified. The bladder is grossly unremarkable. Procedure Note Interface, Radiant Results - 08/25/2017 4:20 PM CDT Ultrasound of the kidneys and bladder Clinical Indication: MARIELA with bland urine microscopy. Technique: Multiple real-time grayscale sonographic images were obtained through the kidneys and bladder. No prior study is available for direct comparison. Findings: The right kidney measures 9.4 cm in length. The left kidney measures 10.6 cm in length. No hydronephrosis is identified. The bladder is grossly unremarkable. IMPRESSION Unremarkable sonogram of the kidneys and bladder. Finalized by Cassidy Paula M.D. on 08/25/2017 4:16 PM. Dictated by Cassidy Paula M.D. on 08/25/2017 4:15 PM. Performing Organization Address City/[facility]/Zipcode Phone Number [facility] * IRON + BINDING CAPACITY + %SAT+ FERRITIN (08/25/2017 4:09 AM) Iron 21 (L) 50 - 160 MCG/DL [facility] Iron Binding-TIBC 279 270 - 380 MCG/DL [facility] % Saturation 8 (L) 28 - 42 % [facility] Ferritin 88 10 - 200 NG/ML [facility] Performing Organization Address City/[facility]/Zipcode Phone Number MAIN LAB [address] [place] [address] * VANCOMYCIN RANDOM (08/25/2017 4:09 AM) Vancomycin Random 25.1 MCG/ML [facility] Specimen Blood Performing Organization Address [facility] [place] Cent[facility] Phone Number [facility] [address] [place] [address] * ECG-SCAN (08/24/2017 7:40 PM) Narrative Performed At Ordered by an unspecified provider. * VANCOMYCIN TROUGH (08/24/2017 3:47 AM) Vancomycin Trough 34.1 (HH) 10.0 - 20.0 MCG/ML [facility] Comment: Critical Value VANC_T: Called To: ADELINA Esposito at: 06:09:34 by: ALIRIO Read back by: ADELINA Esposito Performing Organization Address [facility] [employer] Phone Number [facility] [address] [place] [address] * CULTURE-FUNGAL,OTHER (08/23/2017 12:42 PM) Only the most recent of 2 results within the time period is included. Battery Name FUNGUS CULTURE [facility] Specimen Description TISSUE ANKLE MAIN LAB RIGHT Special Requests NONE MAIN LAB Culture NO GROWTH OF FUNGUS AT 4 WEEKS [facility] Report Status FINAL [facility] 09/22/2017 Specimen Tissue - Ankle Performing Organization Address [facility] [place] Phone Number [facility] [address] [place] [address] * CRYSTAL ANALYSIS-SYNOVIAL FLUID (08/22/2017 1:02 PM) Color,Synovial Fluid BLOODY RED [facility] Clarity,Synovial Fluid CLOUDY [facility] Crystal Exam,Snovial NO CRYSTALS OBSERVED [facility] Fluid Pathology Signature INTERPRETED BY ANDREW PEÑA M.D. [facility] By the PATH SIGNATURE ABOVE, I attest that I have personally formulated the final interpretation expressed in this report and that the above diagnosis is based upon my examination of the slides and/or other material indicated in this report. Specimen Synovial fluid - Synovial Fluid Performing Organization Address [facility] [place]/[facility]/Zipcode Phone Number [facility] [address] [place] [address] * CELL COUNT W/DIFF-SYN FLUID (08/22/2017 1:02 PM) Body Site,Synovial Fluid RIGHT ANKLE [facility] WBC, Synovial Fluid 1,500 (H)Comment: SPECIMEN 0 - 200 /UL [facility] CONTAINED LARGE CLOT COUNTS MAY BE AFFECTED. RBC, Synovial Fluid 778,900Comment: SPECIMEN /UL [facility] CONTAINED LARGE CLOT COUNTS MAY BE AFFECTED. Neutrophils, Synovial 91 (H) 0 - 25 % [facility] Fluid Lymphocytes, Synovial 7 % [facility] Fluid Monocytes/Histocytes, 2 % [facility] Synovial Fluid Path Interpretation, HEMORRHAGIC FLUID [facility] Synovial Fluid Pathologist Signature INTERPRETED BY ANDREW PEÑA M.D. MAIN LAB By the PATH SIGNATURE ABOVE, I attest that I have personally formulated the final interpretation expressed in this report and that the above diagnosis is based upon my examination of the slides and/or other material indicated in this report. Specimen Synovial fluid - Synovial Fluid Performing Organization Address City/[facility]/Zipcode Phone Number [facility] [address] [place] [address] * POC LACTATE (08/22/2017 11:17 AM) LACTIC ACID POC 0.8 0.5 - 2.0 MMOL/L [facility] Performing Organization Address City/[facility] Phone Number [facility] [address] [place] [address] * COMPREHENSIVE METABOLIC PANEL (08/22/2017 11:15 AM) Sodium 136 (L) 137 - 147 MMOL/L [facility] Potassium 4.0 3.5 - 5.1 MMOL/L [facility] Chloride 103 98 - 110 MMOL/L MAIN LAB Glucose 104 (H) 70 - 100 MG/DL [facility] Blood Urea Nitrogen 16 7 - 25 MG/DL [facility] Creatinine 0.81 0.4 - 1.00 MG/DL [facility] Calcium 9.3 8.5 - 10.6 MG/DL [facility] Total Protein 7.2 6.0 - 8.0 G/DL [facility] Total Bilirubin 0.2 (L) 0.3 - 1.2 MG/DL [facility] Albumin 3.9 3.5 - 5.0 G/DL [facility] Alk Phosphatase 72 25 - 110 U/L [facility] AST (SGOT) 16 7 - 40 U/L [facility] CO2 26 21 - 30 MMOL/L [facility] ALT (SGPT) 10 7 - 56 U/L [facility] Anion Gap 7 3 - 12 [facility] eGFR Non >60 >60 mL/min [facility] Comment: The eGFR is not validated for use in drug dosing adjustments.Continue to use estimated creatinine clearance per dosing reference text.Please contact the Clinical Pharmacist for questions. eGFR >60 >60 mL/min MAIN LAB Comment: The eGFR is not validated for use in drug dosing adjustments.Continue to use estimated creatinine clearance per dosing reference text.Please contact the Clinical Pharmacist for questions. Specimen Blood Performing Organization Address City/State/Zipcode Phone Number MAIN LAB [address] [place] [address] * ECG-SCAN (07/22/2017 11:45 AM) Narrative Performed At Ordered by an unspecified provider. * ANESTHESIA PERIPHERAL NERVE BLOCK (07/18/2017 6:53 PM) Narrative Performed At Nicholas Boateng MD 07/18/20171:54 PM Anesthesia Procedure: Peripheral Nerve Block PERIPHERAL NERVE BLOCK Date/Time: 07/18/2017 1:34 PM Patient location: pre-op Reason for block: at surgeon's request and post-op pain management Preprocedure checklist performed: 2 patient identifiers, risks & benefits discussed, patient evaluated, timeout performed, consent obtained, patient being monitored and sterile drape Sterile technique: - Proper hand washing - Cap, mask - Sterile gloves - Skin prep for antisepsis Peripheral Nerve Block Procedure Patient position: supine Prep: ChloraPrep Monitoring: BP, EKG and continuous pulse ox Block type: popliteal Laterality: right Injection technique: catheter Procedures: ultrasound guided Ultrasound image captured Local infiltration: lidocaine Needle/cathether: Needle type: Tuohy Needle gauge: 18 G; Needle length: 4 in Needle location: anatomical landmarks and ultrasound guidance Needle insertion depth: 6 cm Catheter at skin depth: 20 cm Procedure Outcome Injection assessment: negative aspiration for heme, no paresthesia on injection, incremental injection and local visualized surrounding nerve on ultrasound Observations: adequate block, comfortable throughout block, patient tolerated the procedure well with no immediate complications and no sedation Refer to nursing documentation for vitals and monitoring data during procedure. Performed by: NICHOLAS BOATENG Authorized by: NIKKI ALBERT * ANESTHESIA PERIPHERAL NERVE BLOCK (07/18/2017 1:54 PM) Narrative Performed At Nikki Albert MD 07/23/20171:50 PM Anesthesia Procedure: Peripheral Nerve Block PERIPHERAL NERVE BLOCK Date/Time: 07/18/2017 1:36 PM Patient location: pre-op Reason for block: at surgeon's request and post-op pain management Preprocedure checklist performed: 2 patient identifiers, risks & benefits discussed, patient evaluated, timeout performed, consent obtained and patient being monitored Sterile technique: - Proper hand washing - Cap, mask - Sterile gloves - Skin prep for antisepsis Peripheral Nerve Block Procedure Patient position: supine Prep: ChloraPrep Monitoring: BP, EKG and continuous pulse ox Block type: adductor canal Laterality: right Injection technique: single-shot Procedures: ultrasound guided Ultrasound image captured Local infiltration: lidocaine Needle/cathether: Needle type: Tuohy Needle gauge: 18 G; Needle length: 4 in Needle location: anatomical landmarks and ultrasound guidance Procedure Outcome Injection assessment: negative aspiration for heme, no paresthesia on injection, incremental injection and local visualized surrounding nerve on ultrasound Observations: adequate block, patient tolerated the procedure well with no immediate complications, comfortable throughout block and no sedation Additional notes: I was present during the entire procedure performed by a resident. Refer to nursing documentation for vitals and monitoring data during procedure. Performed by: NICHOLAS BOATENG Authorized by: NIKKI ALBERT Procedure Note Nikki Albert MD - 07/18/2017 1:54 PM CDT Anesthesia Procedure: Peripheral Nerve Block PERIPHERAL NERVE BLOCK Date/Time: 07/18/2017 1:36 PM Patient location: pre-op Reason for block: at surgeon's request and post-op pain management Preprocedure checklist performed: 2 patient identifiers, risks & benefits discussed, patient evaluated, timeout performed, consent obtained and patient being monitored Sterile technique: - Proper hand washing - Cap, mask - Sterile gloves - Skin prep for antisepsis Peripheral Nerve Block Procedure Patient position: supine Prep: ChloraPrep Monitoring: BP, EKG and continuous pulse ox Block type: adductor canal Laterality: right Injection technique: single-shot Procedures: ultrasound guided Ultrasound image captured Local infiltration: lidocaine Needle/cathether: Needle type: Tuohy Needle gauge: 18 G; Needle length: 4 in Needle location: anatomical landmarks and ultrasound guidance Procedure Outcome Injection assessment: negative aspiration for heme, no paresthesia on injection , incremental injection and local visualized surrounding nerve on ultrasound Observations: adequate block, patient tolerated the procedure well with no immediate complications, comfortable throughout block and no sedation Additional notes: I was present during the entire procedure performed by a resident. Refer to nursing documentation for vitals and monitoring data during procedure. Performed by: NICHOLAS BOATENG Authorized by: NIKKI ALBERT from Last 3 Months
--- OUTSIDE RECORDS SUMMARY | 2017-09-23 16:35 | XMS REPORT | Encounter Summary ---
Author Author [facility] Organization [facility] Address Unknown Phone Unavailable Care Team Providers Care Electromechanical Inspector Name Role Phone Joao Mccabe MD Unavailable Vadim Waggoner MD PCP Reason for Visit * Reason Comments Outpatient Antibiotic Therapy (Opat) Encounter Details Date Type Department Care Team Description 09/18/2017 Telephone [facility] Karina August DO Outpatient Antibiotic Physicians - Internal [address] Therapy (Opat) Medicine [address] [place] [address] Pavilion Level 4C [phone] [place] [address] Social History Tobacco Use Types Packs/Day Years Used Date Never Smoker Smokeless Tobacco: Never Used Alcohol Use Drinks/Week oz/Week Comments No Sex Assigned at Date Recorded Not on file as of this encounter Functional Status Functional Status Response Date of Assessment Does the patient have a hearing impairment: No 09/02/2017 Does the patient have a visual impairment: No 09/02/2017 Does the patient have impaired ambulation: Yes 09/02/2017 Does the patient have an activity of daily living Yes 09/02/2017 (ADL) impairment: Does the patient have an instrumental activity of Yes 09/02/2017 daily living (IADL) impairment: Cognitive Status Response Date of Assessment Does the patient have a cognitive impairment: No 09/02/2017 as of this encounter Miscellaneous Notes * Telephone Encounter - Tamiko Jackson RN - 09/18/2017 12:29 PM CDT [facility] called to inform us pt is being discharged to home with home health. [facility] and [facility] have been set up to continue IV abx's at home. Called [facility] and confirmed with Liz Mccoy Daptomycin 475mg IV Push QD through ~ 10/03/17. Called [facility] and left message for Stefania GOMEZ RN to call me back to confirm lab and picc care. Stefania called back and verified lab orders. They will be drawing labs Q Friday starting 09/22/17. in this encounter Plan of Treatment Date Type Specialty Care Team Description 09/16/2017 Procedure Pass Orthopedic Surgery as of this encounter Visit Diagnoses Not on filein this encounter
--- OUTSIDE RECORDS SUMMARY | 2017-09-23 16:35 | XMS REPORT | Encounter Summary ---
Author Author [facility] Organization [facility] Address Unknown Phone Unavailable Care Team Providers Care Advanced Developer Name Role Phone Joao Mccabe MD Unavailable Vadim Waggoner MD PCP Encounter Details Date Type Department Care Team Description 09/10/2017 Outpt. [facility] aKrina August DO Antibiotic Physicians - Internal [address] Therapy Medicine [address] [place] [address] Pavilion Level [phone] [address] [facility] [place] [address] Social History Tobacco Use Types [...] impairment: No 09/02/2017 as of this encounter Plan of Treatment Date Type Specialty Care Team Description 09/16/2017 Procedure Pass Orthopedic Surgery as of this encounter Results * BUN (09/10/2017 4:45 AM) Blood Urea Nitrogen 19 OTHER OUTSIDE LAB Specimen Blood - Blood Performing Organization Address City/State/Zipcode Phone Number OTHER OUTSIDE LAB * ALT (SGPT) (09/10/2017 4:45 AM) ALT (SGPT) 15 OTHER OUTSIDE LAB Specimen Blood - Blood Performing Organization Address City/[facility]/Zipcode Phone Number OTHER OUTSIDE LAB * AST (SGOT) (09/10/2017 4:45 AM) AST (SGOT) 16 OTHER OUTSIDE LAB Specimen Blood - Blood Performing Organization Address City/[facility]/Zipcode Phone Number OTHER OUTSIDE LAB * POTASSIUM (09/10/2017 4:45 AM) Potassium 3.7 OTHER OUTSIDE LAB Specimen Blood - Blood Performing Organization Address City/[facility]/Zipcode Phone Number OTHER OUTSIDE LAB * ALK PHOS TOTAL (09/10/2017 4:45 AM) Alk Phosphatase 77 OTHER OUTSIDE LAB Specimen Blood - Blood Performing Organization Address City/[facility]/[employer] Phone Number OTHER OUTSIDE LAB * CREATININE (09/10/2017 4:45 AM) Creatinine 1.0 OTHER OUTSIDE LAB Specimen Blood - Blood Performing Organization Address City/[facility] Number [facility] * CREATINE KINASE-CPK (09/10/2017 4:45 AM) Creatine Kinase 19 OTHER OUTSIDE LAB Specimen Blood - Blood Narrative Performed At Performing Organization Address City/[facility] Phone Number OTHER [facility] * C REACTIVE PROTEIN (CRP) (09/08/2017 5:10 AM) C-Reactive Protein 10.6mg/L OTHER OUTSIDE LAB Specimen Blood - Blood Performing Organization Address City/[facility]/Zipcode Phone Number OTHER OUTSIDE LAB * SED RATE (09/08/2017 5:10 AM) Sed Rate -ESR 53 OTHER OUTSIDE LAB Specimen Blood - Blood Performing Organization Address City/[facility]/[employer] Phone Number OTHER OUTSIDE LAB * PLATELET COUNT (09/08/2017 5:10 AM) Platelet Count 436 OTHER OUTSIDE LAB Specimen Blood - Blood Performing Organization Address City/[facility]/Zipcode Phone Number OTHER OUTSIDE LAB * CBC (09/08/2017 5:10 AM) White Blood Cells 7.6 OTHER OUTSIDE LAB Specimen Blood - Blood Performing Organization Address City/[facility]/Zipcode Phone Number OTHER OUTSIDE LAB * HEMOGLOBIN (09/08/2017 5:10 AM) Hemoglobin 10.2 OTHER OUTSIDE LAB Specimen Blood - Blood Narrative Performed At Performing Organization Address City/State/Zipcode Phone Number OTHER OUTSIDE LAB in this encounter Visit Diagnoses Not on filein this encounter
--- OUTSIDE RECORDS SUMMARY | 2017-09-23 16:35 | XMS REPORT | Encounter Summary ---
Author Author [facility] Organization [facility] Address Unknown Phone Unavailable Care Team Providers Care Chainstitch Tunnel Elastic Operator Name Role Phone Joao Mccabe MD Unavailable Vadim Waggoner MD PCP Reason for Referral * Radiology Services Status Reason Specialty Diagnoses / Referred By Referred To Procedures Contact Contact New Request Radiology Diagnoses Joao Mccabe MD Arthritis of [address] [place] [address] [facility] [place] LOWER EXTREM [address] WO CONT RIGHT Reason for Visit * Reason Comments Post-op right ankle Encounter Details Date Type Department Care Team Description 09/16/2017 Office Visit [facility] Joao Mccabe MD Pain ( Primary Dx); Physicians - Orthopedics [address] Arthritis of foot Orthopedics and Medical [address] [place] [address] [phone] [place] [address] Social History Tobacco Use Types Packs/Day Years Used Date Never Smoker Smokeless Tobacco: Never Used Alcohol Use Drinks/Week oz/Week Comments No Sex Assigned at Date Recorded Not on file as of this encounter Last Filed Vital Signs Vital Sign Reading Time Taken Blood Pressure 147/83 09/16/2017 12:18 PM CDT Pulse 73 09/16/2017 12:18 PM CDT Temperature 36.8 C (98.3 F) 09/16/2017 12:18 PM CDT Respiratory Rate - - Oxygen Saturation - - Inhaled Oxygen - - Concentration Weight 72.6 kg (160 lb) 09/16/2017 12:18 PM CDT Height 171.4 cm (5' 7.48") 09/16/2017 12:18 PM CDT Body Mass Index 24.7 09/16/2017 12:18 PM CDT in this encounter Functional Status Functional Status Response [...] impairment: No 09/02/2017 as of this encounter Progress Notes * Joao Mccabe MD - 09/16/2017 12:30 PM CDT She is here today for reevaluation of her right ankle. She has seen Dr. August today. She is doing well. On exam her wound continues to mature. The patient is progressing on the expected postoperative course. She can increase her weight bearing in her cam walker as tolerated. She will continue with some Tubigrip for swelling. Her wounds couldn't look better. There has been no drainage. There's really not any swelling. Clinically she looks encouragingly good. I think she can go into her boot. It has been nine weeks since her arthroplasty and talonavicular fusion. I don't see any reason why she can't start trying to bear increasing amounts of weight. She doesn't need to sleep in the boot. I would guess that she would probably need to increase her weight in the boot over the course of the next month. At that point she can potentially even wean out of the boot around the house if she's comfortable. Dr. August is going to see her back in three weeks. If she's doing okay, I don' t necessarily need to lay my eyes on her unless there's any concerns. I have spent the majority of our 15-minute encounter today counseling Steff Ivis Azul with regard to my findings and recommendations. I would like to see her back in two months with a CT scan through her hindfoot to evaluate healing of the talonavicular joint. She is going to go to oral antibiotics after the when she goes off her IV antibiotics. In the presence of Joao Mccabe MD, I have taken down these notes, Mario Maravilla. 09/16/2017 1:31 PM in this encounter Plan of Treatment Date Type Specialty Care Team Description 09/16/2017 Procedure Pass Orthopedic Surgery Name Priority Associated Diagnoses Order Schedule CT LOWER EXTREM WO CONT RIGHT Routine Arthritis of foot Expected: 2017, Expires: 09/16/2018 as of this encounter Results * FOOT COMP MIN 3 VIEWS RIGHT (09/16/2017 1:00 PM) Impressions Performed At Findings/Impression: [facility] RAD RESULTS [...] on 09/16/2017 1:51 PM. Performing Organization Address [facility] Phone Number [email or web address] RAD RESULTS * ANKLE MIN 3 VIEWS RIGHT (09/16/2017 12:49 PM) Impressions Performed At Patient is status post [...] on 09/16/2017 1:25 PM. Performing Organization Address [facility] Phone Number [facility] RAD RESULTS in this encounter Visit Diagnoses Diagnosis Pain - Primary Generalized pain Arthritis of foot Unspecified arthropathy, ankle and foot
--- OUTSIDE RECORDS SUMMARY | 2017-09-23 16:35 | XMS REPORT | Encounter Summary ---
Author Author [facility] Organization [facility] Address Unknown Phone Unavailable Care Team Providers Care Director Imaging Name Role Phone Joao Mccabe MD Unavailable Vadim Waggoner MD PCP Encounter Details Date Type Department Care Team Description 09/15/2017 Outpt. [facility] Karina August DO Antibiotic Physicians - Internal [address] [facility] Therapy Medicine [address] [place] [address] Pavilion Level [phone] [place] [address] Social History Tobacco Use Types [...] Surgery as of this encounter Results * C REACTIVE PROTEIN (CRP) (09/15/2017 5:30 AM) C-Reactive Protein 29.4mg/L OTHER OUTSIDE LAB Specimen Blood - Blood Performing Organization Address City/State/Zipcode Phone Number OTHER OUTSIDE LAB * BUN (09/15/2017 5:30 AM) Blood Urea Nitrogen 20 OTHER OUTSIDE LAB Specimen Blood - Blood Performing Organization Address City/State/Zipcode Phone Number OTHER OUTSIDE LAB * ALT (SGPT) (09/15/2017 5:30 AM) ALT (SGPT) 22 OTHER OUTSIDE LAB Specimen Blood - Blood Performing Organization Address City/[facility]/Zipcode Phone Number OTHER OUTSIDE LAB * AST (SGOT) (09/15/2017 5:30 AM) AST (SGOT) 21 OTHER OUTSIDE LAB Specimen Blood - Blood Performing Organization Address City/[facility]/Zipcode Phone Number OTHER OUTSIDE LAB * POTASSIUM (09/15/2017 5:30 AM) Potassium 3.6 OTHER OUTSIDE LAB Specimen Blood - Blood Performing Organization Address City/[facility]/Zipcode Phone Number OTHER OUTSIDE LAB * ALK PHOS TOTAL (09/15/2017 5:30 AM) Alk Phosphatase 88 OTHER OUTSIDE LAB Specimen Blood - Blood Performing Organization Address City/[facility]/Zipcode Phone Number OTHER OUTSIDE LAB * CREATININE (09/15/2017 5:30 AM) Creatinine 0.8 OTHER OUTSIDE LAB Specimen Blood - Blood Performing Organization Address City/[facility]/Zipcode Phone Number OTHER OUTSIDE LAB * CREATINE KINASE-CPK (09/15/2017 5:30 AM) Creatine Kinase 17 OTHER OUTSIDE LAB Specimen Blood - Blood Performing Organization Address City/[facility]/Zipcode Phone Number OTHER OUTSIDE LAB * SED RATE (09/15/2017 5:30 AM) Sed Rate -ESR 66 OTHER OUTSIDE LAB Specimen Blood - Blood Performing Organization Address City/[facility]/Zipcode Phone Number OTHER OUTSIDE LAB * PLATELET COUNT (09/15/2017 5:30 AM) Platelet Count 350 OTHER OUTSIDE LAB Specimen Blood - Blood Performing Organization Address City/State/Zipcode Phone Number OTHER OUTSIDE LAB * CBC (09/15/2017 5:30 AM) White Blood Cells 7.7 OTHER OUTSIDE LAB Specimen Blood - Blood Performing Organization Address City/[facility]/Zipcode Phone Number OTHER OUTSIDE LAB * HEMOGLOBIN (09/15/2017 5:30 AM) Hemoglobin 10.3 OTHER OUTSIDE LAB Specimen Blood - Blood Narrative Performed At Performing Organization Address City/State/Zipcode Phone Number OTHER OUTSIDE LAB in this encounter Visit Diagnoses Not on filein this encounter
--- OUTSIDE RECORDS SUMMARY | 2017-09-23 16:35 | XMS REPORT | Encounter Summary ---
Author Author [facility] Organization [facility] Address Unknown Phone Unavailable Care Team Providers Care Wastewater Treatment Operator Name Role Phone Joao Mccabe MD Unavailable Vadim Waggoner MD PCP Reason for Referral * Consult, Test & Treat Status Reason Specialty Diagnoses / Referred By Referred To Procedures Contact Contact New Request Specialty Diagnoses Karina August Services Postoperative RDO Required wound infection, [address] encounter [address] [place] [address] Scheduling Instructions No action needed. OPAT RN to address. Encounter Details Date Type Department Care Team Description 09/23/2017 Outpt. [facility] Karina August DO Antibiotic Physicians - Internal [address] Therapy Medicine [address] [place] [address] Pavilion Level 4C [phone] [place] [address] Social History Tobacco Use Types [...] as of this encounter Progress Notes * Jocelyne Jackson RN - 09/23/2017 9:[address] August notified of Increase in WBC, ESR, CRP, and Creat and Low K+ at 3.1 Called pt to discuss abnormal labs. Pt states she is having low grade temps Q night around 7 or 8pm. Temp 98.8 - 99.1. Pt states at night she does not have any chills, but she does have "hot flashes from menopause at night". No other s/ s of infection to ankle or picc site. Pt confirms she does take 20 meq of Potassium BID. Pt admits she has not been drinking fluids very well especially since she had been nauseous. Pt states that now that the Ranitidine was added plus she also took her Zofran, her nausea "improved a lot yest". Pt states she actually "feels pretty good". Pt also denies any urgency, increased frequency or burning with urination. Per DR August: Kcl 40 meq tonight and tomorrow w meals. UA/UC and peripheral + picc blood culture. Called pt and informed her of above orders. Pt wrote down and verbalized instructions. Following orders faxed to [facility] . Confirmed orders received with Grace. Infectious Diseases Outpatient Orders: Today's Date: 09-23-[address] August DX: MSSA Hardware infx complicating surg wound infection on R ankle 1.Please obtain UA with reflex culture today or tomorrow. 2. Also draw blood cultures x2 sets. One set from PICC line and one set from peripheral site today or tomorrow. 3.Please Fax All Lab Results to Dr August at [phone]. 4. Continue all previous orders as written on IVabx and wkly labs. Please Address Questions, Abnormal or Critical Lab Results: Friday thru Friday 8am - 4pm: Call Jocelyne BROWNING RN at [phone]. After Hours (4pm), On the Weekends, or on a Holiday: Page the ID Fellow Care Associate at [phone]. Thank You in this encounter Miscellaneous Notes * Addendum Note - Jocelyne Jackson RN - 09/23/2017 9:03 AM CDT Addended by: JOCELYNE JACKSON on: 09/23/2017 11:34 AM Modules accepted: Orders in this encounter Plan of Treatment Date Type Specialty Care Team Description 09/16/2017 Procedure Pass Orthopedic Surgery Name Priority Associated Diagnoses Order Schedule AMB REFERRAL TO HOME CARE Routine Postoperative wound Ordered: 2017 infection, subsequent encounter as of this encounter Results * C REACTIVE PROTEIN (CRP) (09/22/2017 1:40 PM) C-Reactive Protein 9.57mg/dLhigh sensitivity OTHER OUTSIDE LAB Specimen Blood - Blood Performing Organization Address [facility] Phone Number OTHER OUTSIDE LAB * BUN (09/22/2017 1:40 PM) Blood Urea Nitrogen 22 OTHER OUTSIDE LAB Specimen Blood - Blood Performing Organization Address [facility] Phone Number OTHER OUTSIDE LAB * ALT (SGPT) (09/22/2017 1:40 PM) ALT (SGPT) 60 OTHER OUTSIDE LAB Specimen Blood - Blood Performing Organization Address [facility] Phone Number OTHER OUTSIDE LAB * AST (SGOT) (09/22/2017 1:40 PM) AST (SGOT) 48 OTHER OUTSIDE LAB Specimen Blood - Blood Performing Organization Address [facility] Phone Number OTHER OUTSIDE LAB * POTASSIUM (09/22/2017 1:40 PM) Potassium 3.1 OTHER OUTSIDE LAB Specimen Blood - Blood Performing Organization Address [facility] Phone Number OTHER OUTSIDE LAB * ALK PHOS TOTAL (09/22/2017 1:40 PM) Alk Phosphatase 107 OTHER OUTSIDE LAB Specimen Blood - Blood Performing Organization Address [facility] Phone Number OTHER OUTSIDE LAB * CREATININE (09/22/2017 1:40 PM) Creatinine 1.05 OTHER OUTSIDE LAB Specimen Blood - Blood Performing Organization Address [facility] Phone Number OTHER OUTSIDE LAB * CREATINE KINASE-CPK (09/22/2017 1:40 PM) Creatine Kinase 40 OTHER OUTSIDE LAB Specimen Blood - Blood Performing Organization Address [facility] Phone Number OTHER OUTSIDE LAB * SED RATE (09/22/2017 1:40 PM) Sed Rate -ESR 125 OTHER OUTSIDE LAB Specimen Blood - Blood Performing Organization Address [facility] Phone Number OTHER OUTSIDE LAB * PLATELET COUNT (09/22/2017 1:40 PM) Platelet Count 367 OTHER OUTSIDE LAB Specimen Blood - Blood Performing Organization Address [facility] Phone Number OTHER OUTSIDE LAB * CBC (09/22/2017 1:40 PM) White Blood Cells 10.3 OTHER OUTSIDE LAB Specimen Blood - Blood Performing Organization Address [facility] Phone Number OTHER OUTSIDE LAB * HEMOGLOBIN (09/22/2017 1:40 PM) Hemoglobin 11.4 OTHER OUTSIDE LAB Specimen Blood - Blood Narrative Performed At Performing Organization Address [facility] Phone Number OTHER OUTSIDE LAB in this encounter Visit Diagnoses Diagnosis Postoperative wound infection, subsequent encounter - Primary
--- OUTSIDE RECORDS SUMMARY | 2017-09-23 16:35 | XMS REPORT | Encounter Summary ---
Author Author [facility] Organization [facility] Address Unknown Phone Unavailable Care Team Providers Care Pediatric Audiologist Name Role Phone Joao Mccabe MD Unavailable Vadim Waggoner MD PCP Encounter Details Date Type Department Care Team Description 09/16/[address] [facility] Joao Mccabe MD Arrived Encounter Hospital Radiology [address] [place] [address] [address] FLOOR [phone] [place] [id number] [phone] Social History Tobacco Use Types Packs/Day Years [...] impairment: No 09/02/2017 as of this encounter Medications at Time of Discharge Medication Sig. Disp. Refills Start Date End Date acetaminophen (TYLENOL) Take 1,000 mg by mouth 500 mg tablet three times daily as needed for Pain. ALPRAZolam (XANAX) 0.25 Take 0.25 mg by mouth at 10/02/2015 mg tablet bedtime daily. amLODIPine (NORVASC) 10 Take 10 mg by mouth mg tablet daily. aspirin 325 mg tablet Take 325 mg by mouth daily. Take with food. atorvastatin (LIPITOR) 20 Take 20 mg by mouth 10/03/2015 mg tablet daily. BYSTOLIC 10 mg tablet Take 2 tablets by mouth 09/02/2017 twice daily. calcium carbonate/vitamin Take 1 tablet by mouth D-3 (OSCAL-500+D) 1250 twice daily with meals. mg/200 unit tablet Calcium Carb 1250mg delivers 500mg elemental Ca cholecalciferol(+) Take 2,000 Units by mouth (VITAMIN D-3) 2,000 unit daily. tablet cloNIDine (CATAPRESS) 0.2 Take 1 tablet by mouth 180 tablet 3 2017 mg tablet twice daily. cycloSPORINE (RESTASIS) Place 1 Drop into or 0.05 % ophthalmic around eye(s) twice emulsion daily. DAPTOmycin (CUBICIN) 500 Administer 9.5 mL through 1 each 09/01/2017 mg/10 mL solr vein every 48 hours. Increase to q24h is CrCl improves to > 30 ml/min docusate (COLACE) 100 mg Take 1 capsule by mouth 180 capsule 3 2017 capsule twice daily as needed for Constipation. duloxetine DR (CYMBALTA) Take 90 mg by mouth at 10/03/2015 30 mg capsule bedtime daily. ferrous sulfate (FEOSOL, Take 1 tablet by mouth 90 tablet 3 2017 FEROSUL) 325 mg (65 mg daily. Take on an empty iron) tablet stomach at least 1 hour before or 2 hours after food. FLAXSEED OIL PO Take 1 tablet by mouth twice daily. furosemide (LASIX) 40 mg Take 1 tablet by mouth 90 tablet 3 2017 tablet every morning. Take 1 tablet by mouth every morning HYDROcodone/acetaminophen Take 1-2 tablets by mouth 60 tablet 0 2017 (NORCO) 5/325 mg tablet every 4 hours as needed for Pain Earliest Fill Date: 09/01/17 ibandronate sodium Administer through vein. (BONIVA IV) LUMIGAN 0.01 % drop Apply 1 Drop to both eyes 10/04/2015 at bedtime daily. metroNIDAZOLE(+) Apply topically to (METROCREAM; VITAZOL; affected area daily. ROSADAN) 0.75 % topical cream nebivolol (BYSTOLIC) 10 Take 2 tablets by mouth 09/02/2017 mg tablet twice daily. nystatin (MYCOSTATIN) Take 5 mL by mouth four 0 09/02/2017 100,000 units/mL oral times daily. suspensionIndications: oral candidiasis oxycodone(+) (ROXICODONE, Take 1 tablet by mouth 80 tablet 0 2017 OXY-IR) 10 mg tablet every 4 hours as needed for Pain potassium chloride SR Take 20 mEq by mouth (K-DUR) 20 mEq tablet twice daily. Take with a meal and a full glass of water. rifAMPin (RIFADINE) 300 Take 1 capsule by mouth 0 09/02/2017 mg capsule twice daily. Duration as directed by Infectious Disease. Take on an empty stomach at least 1 hour before or 2 hours after food. timolol (TIMOPTIC) 0.5 % Apply 1 Drop to both eyes 10/04/2015 ophthalmic solution daily. as of this encounter Plan of Treatment Date Type Specialty Care Team Description 09/16/2017 Procedure Pass Orthopedic Surgery as of this encounter Results * ANKLE MIN 3 VIEWS RIGHT (09/16/2017 [...] Address City/State/Zipcode Phone Number [facility] RESULTS in this encounter Visit Diagnoses Diagnosis Pain Generalized pain
--- OUTSIDE RECORDS SUMMARY | 2017-09-23 16:35 | XMS REPORT | Encounter Summary ---
Author Author [facility] Organization [facility] Address Unknown Phone Unavailable Care Team Providers Care Skirt Maker Name Role Phone Joao Mccabe MD Unavailable Vadim Waggoner MD PCP Encounter Details Date Type Department Care Team Description 09/03/2017 [facility] Tam[facility] Vargas MD [facility] Physicians - Internal [address] [facility] Therapy Medicine [address] [place] [address] [phone] [address] [facility] [place] [address] Social History Tobacco Use Types [...] as of this encounter Progress Notes * Delmis Espinoza RN - 09/03/2017 8:26 AM CDT Confirmed that Dr. August will be following pt. * Delmis Espinoza RN - 09/03/2017 8:26 AM CDT D/c date: 09/02 Physician: Alicia August Next f/u: pending, will see Dr. Mccabe on 09/16 @ 120 Diagnosis: MSSA Hardware infx complicating surg wound infection on R ankle Abx: daptomycin 475 mg IV Q 48 hrs and rifampin 300 mg PO BID Start date: 08/22 Stop date: @ least until 10/03 ( 6 wks) likely followed by 3 mo PO Labs: CBC w/ diff, CMP, ESR, and CRP and CPK wkly on Mondays starting 09/08 Line: R SL PICC HH/SNF: [facility] [phone]/ fax [phone] Verified orders w/ Irma GRUBER at [facility]. Waiting to verify which ID physician is following and will arrange f/u at this time. in this encounter Plan of Treatment Date Type Specialty Care Team Description 09/16/2017 Procedure Pass Orthopedic Surgery as of this encounter Visit Diagnoses Not on filein this encounter
--- OUTSIDE RECORDS SUMMARY | 2017-09-23 16:35 | XMS REPORT | Encounter Summary ---
Author Author [facility] Organization [facility] Address Unknown Phone Unavailable Care Team Providers Care Cardiac Cath Tech Name Role Phone Joao Mccabe MD Unavailable Vadim Waggoner MD PCP Reason for Visit * Reason Comments Outpatient Antibiotic Therapy (Opat) Encounter Details Date Type Department Care Team Description 09/22/2017 Telephone [facility] Karina August DO Outpatient Antibiotic Physicians - Internal [address] Therapy (Opat) Medicine [address] [place] [address] Pavilion Level 4C [phone] [place] [address] Social History Tobacco Use Types [...] Telephone Encounter - Tamiko Jackson RN - 09/22/2017 2:52 PM CDT Pt called stating she continues to have "nausea" and sometimes "throws up a little" every time she brushes her teeth and a few hrs after eating. Pt states Dr August was going to order something for her, but her pharmacy has not received any new scripts. Pt also asking about f/u appt. F/U discussed for 10/07 at 3pm since pt is scheduled to finish her Iv abx on 10/07/17. Pt agreeable to this date and time. Will discuss with Dr August and call her back. Per Dr August place script for Ranitidine 150 mg po BID x 30 days. in this encounter Plan of Treatment Date Type Specialty Care Team Description 09/16/2017 Procedure Pass Orthopedic Surgery as of this encounter Visit Diagnoses Diagnosis Nausea - Primary Nausea alone
--- OUTSIDE RECORDS SUMMARY | 2017-09-23 16:35 | XMS REPORT | Encounter Summary ---
Author Author [facility] Organization [facility] Address Unknown Phone Unavailable Care Team Providers Care Lap Runner Name Role Phone Joao Mccabe MD Unavailable Vadim Waggoner MD PCP Reason for Visit * Reason Comments Infection Encounter Details Date Type Department Care Team Description 09/16/2017 Office Visit [facility] Karina August DO Wound infection (Primary Physicians - Internal [address] Dx); Medicine [address] Hardware complicating [place] [address] wound infection, Pavilion Level 4C [phone] subsequent encounter [address] [place] [address] Social History Tobacco Use Types [...] 0.9 oz) 09/16/2017 12:57 PM CDT Height - - Body Mass Index 24.71 09/16/2017 12:57 PM CDT in this encounter Functional Status [...] as of this encounter Progress Notes * Tamiko Jackson RN - 09/16/2017 1:[address] August Daptomycin to be increased to 475 mg IV QD instead of Q 48 hrs. I called [facility] and spoke to Irma nurse caring for pt. Irma confirmed order received and pt will be given a dose today. Irma also states they will be discharging pt to home with home health [facility] 09/17/17 and she will call back with that info. * Karina August DO - 09/16/2017 1:00 PM CDT Formatting of this note may be different from the original. Date of Service: 09/16/2017 Subjective: Steff Azul is a 72 y.o. female. History of Present Illness The patient is here for follow up today after hospital discharge. Please see the initial inpatient Infectious Diseases consultation note and inpatient progress notes for more remote and detailed information about the patient's infection and initial presentation. Since DC: No f/c + hot flashes No cough or sob She is having some nausea off and on- noticed it yest evening but not am so does not think this is rifampin - dapto was still dosed q48h Her rash is gone. Creat now back to nml Micro reviewed- no new + culture Plan is for home tomorrow and awaiting whether she will get extension on picc to do these herself Antimicrobial Start date End date vanc 08/22 08/25 zosyn 08/22 08/25 ancef 08/26 08/28 rif 08/26 dapto 08/28 Social: not Review of Systems A comprehensive 14 point review of systems was negative aside from those issues noted above and: Improved pain Objective: acetaminophen (TYLENOL) 500 mg tablet Take 1,000 mg by mouth three times daily as needed for Pain. ALPRAZolam (XANAX) 0.25 mg tablet Take 0.25 mg by mouth at bedtime daily. amLODIPine (NORVASC) 10 mg tablet Take 10 mg by mouth daily. aspirin 325 mg tablet Take 325 mg by mouth daily. Take with food. atorvastatin (LIPITOR) 20 mg tablet Take 20 mg by mouth daily. BYSTOLIC 10 mg tablet Take 2 tablets by mouth twice daily. calcium carbonate/vitamin D-3 (OSCAL-500+D) 1250 mg/200 unit tablet Take 1 tablet by mouth twice daily with meals. Calcium Carb 1250mg delivers 500mg elemental Ca cholecalciferol(+) (VITAMIN D-3) 2,000 unit tablet Take 2,000 Units by mouth daily. cloNIDine (CATAPRESS) 0.2 mg tablet Take 1 tablet by mouth twice daily. cycloSPORINE (RESTASIS) 0.05 % ophthalmic emulsion Place 1 Drop into or around eye(s) twice daily. DAPTOmycin (CUBICIN) 500 mg/10 mL solr Administer 9.5 mL through vein every 48 hours. Increase to q24h is CrCl improves to > 30 ml/min docusate (COLACE) 100 mg capsule Take 1 capsule by mouth twice daily as needed for Constipation. duloxetine DR (CYMBALTA) 30 mg capsule Take 90 mg by mouth at bedtime daily. ferrous sulfate (FEOSOL, FEROSUL) 325 mg (65 mg iron) tablet Take 1 tablet by mouth daily. Take on an empty stomach at least 1 hour before or 2 hours after food. FLAXSEED OIL PO Take 1 tablet by mouth twice daily. furosemide (LASIX) 40 mg tablet Take 1 tablet by mouth every morning. Take 1 tablet by mouth every morning HYDROcodone/acetaminophen (NORCO) 5/325 mg tablet Take 1-2 tablets by mouth every 4 hours as needed for Pain Earliest Fill Date: 09/01/17 ibandronate sodium (BONIVA IV) Administer through vein. LUMIGAN 0.01 % drop Apply 1 Drop to both eyes at bedtime daily. metroNIDAZOLE(+) (METROCREAM; VITAZOL; ROSADAN) 0.75 % topical cream Apply topically to affected area daily. nebivolol (BYSTOLIC) 10 mg tablet Take 2 tablets by mouth twice daily. nystatin (MYCOSTATIN) 100,000 units/mL oral suspension Take 5 mL by mouth four times daily. oxycodone(+) (ROXICODONE, OXY-IR) 10 mg tablet Take 1 tablet by mouth every 4 hours as needed for Pain potassium chloride SR (K-DUR) 20 mEq tablet Take 20 mEq by mouth twice daily. Take with a meal and a full glass of water. rifAMPin (RIFADINE) 300 mg capsule Take 1 capsule by mouth twice daily. Duration as directed by Infectious Disease. Take on an empty stomach at least 1 hour before or 2 hours after food. timolol (TIMOPTIC) 0.5 % ophthalmic solution Apply 1 Drop to both eyes daily. Vitals: 09/16/17 1257 BP: 147/83 Pulse: 73 Temp: 36.8 C (98.2 F) Weight: 72.6 kg (160 lb 0.9 oz) Body mass index is 24.71 kg/m. BMI Weight Status Below 18.5 Underweight 18.5 24.9 Normal 25.0 29.9 Overweight 30.0 and Above Obese 40.0 and Above Morbidly obese Reviewed/discussed patient's BMI. The BMI was reviewed; specialist visit only, patient will follow-up with primary care doctor. Physical Exam Gen: A&0x3, NAD HEENT: MMM, no thrush NECK: Supple CHEST: Clear bl CV: Regular rhythm, nml rate, no murmur ABD: soft, tenderness in epigastric region, no organomegaly, nml bowel sounds EXT: No LE edema SKIN: No rash PIC ok Sodium Date/Time Value Ref Range Status 09/02/2017 03:30 AM 136 (L) 137 - 147 MMOL/L Final 09/01/2017 03:50 AM 135 (L) 137 - 147 MMOL/L Final Potassium Date/Time Value Ref Range Status 09/15/2017 05:30 AM 3.6 Final 09/10/2017 04:45 AM 3.7 Final Blood Urea Nitrogen Date/Time Value Ref Range Status 09/15/2017 05:30 AM 20 Final 09/10/2017 04:45 AM 19 Final Creatinine Date/Time Value Ref Range Status 09/15/2017 05:30 AM 0.8 Final 09/10/2017 04:45 AM 1.0 Final AST (SGOT) Date/Time Value Ref Range Status 09/15/2017 05:30 AM 21 Final 09/10/2017 04:45 AM 16 Final ALT (SGPT) Date/Time Value Ref Range Status 09/15/2017 05:30 AM 22 Final 09/10/2017 04:45 AM 15 Final Alk Phosphatase Date/Time Value Ref Range Status 09/15/2017 05:30 AM 88 Final 09/10/2017 04:45 AM 77 Final Total Bilirubin Date/Time Value Ref Range Status 09/02/2017 03:30 AM 0.4 0.3 - 1.2 MG/DL Final 08/22/2017 11:15 AM 0.2 (L) 0.3 - 1.2 MG/DL Final White Blood Cells Date/Time Value Ref Range Status 09/15/2017 05:30 AM 7.7 Final 09/08/2017 05:10 AM 7.6 Final RBC Date/Time Value Ref Range Status 09/02/2017 03:30 AM 3.27 (L) 4.0 - 5.0 M/UL Final 09/01/2017 03:50 AM 3.52 (L) 4.0 - 5.0 M/UL Final Hemoglobin Date/Time Value Ref Range Status 09/15/2017 05:30 AM 10.3 Final 09/08/2017 05:10 AM 10.2 Final Platelet Count Date/Time Value Ref Range Status 09/15/2017 05:30 AM 350 Final 09/08/2017 05:10 AM 436 Final Sed Rate -ESR Date/Time Value Ref Range Status 09/15/2017 05:30 AM 66 Final 09/08/2017 05:10 AM 53 Final 08/22/2017 11:15 AM 60 (H) 0 - 30 MM/HR Final C-Reactive Protein Date/Time Value Ref Range Status 09/15/2017 05:30 AM 29.4mg/L Final 09/08/2017 05:10 AM 10.6mg/L Final 08/22/2017 11:15 AM 7.87 (H) <1.0 MG/DL Final Lab tests reviewed. Pertinent microbiology, other diagnostic tests and radiology reviewed. Assessment and Plan: MSSA Hardware infx complicating surg wound infection on R ankle 5 wks out R total ankle arthroplasty with mays Prophecy implant, gastroc resection, revision of talonavicular joint arthrodesis w/autogenous bone graft + infuse after removal of the prior deep implant Wound erythema, drainage around 08/20 from sinus tract R medial ankle along incision; swab GS: staph - cult MSSA OR 08/26 for poly exchange, GS neg, tissue cult 1 colony MSSA MARIELA with kappa protein spike In setting of vanc w/inc level Creat nml at FU HTN OA Drug rash 08/28 - most likely culprit cefazolin -resolved Acute hypoxic resp failure with R>L basilar infil - suspect edema - back to baseline Recommendations: 1. Continue Daptomycin - change to q daily infusion 2. Cont RFP 300mg po bid 3. Tentatively 6 weeks of IV antibiotic therapy (end 10/07) followed by 3 mo po ; rif + doxy 100 mg po bid 4. Cont weekly CBC CMP ESR/CRP, CPK weekly for ID- lab faxed to [phone]. 5. FU in ID clinic in around 2 wks Will follow Complexity of medical decision making is high b/c of the multi-system nature of the infectious disease process and concerns about the complexity of the patient illness including the sensitivity of the organisms being treated, the potential for drug toxicity and interactions, concerns about immunologic function, and interplay of other issues. in this encounter Plan of Treatment Date Type Specialty Care Team Description 09/16/2017 Procedure Pass Orthopedic Surgery as of this encounter Visit Diagnoses Diagnosis Wound infection - Primary Posttraumatic wound infection not elsewhere classified Hardware complicating wound infection, subsequent encounter
--- OUTSIDE RECORDS SUMMARY | 2017-09-23 16:35 | XMS REPORT | Encounter Summary ---
Author Author [facility] Organization [facility] Address Unknown Phone Unavailable Care Team Providers Care Second Language Tutor Name Role Phone Joao Mccabe MD Unavailable Vadim Waggoner MD PCP Encounter Details Date Type Department Care Team Description 09/16/2017 Hospital [facility] Joao Mccabe MD Arrived Encounter Hospital Radiology [address] [place] [address] 2ND FLOOR [phone] [place] [id number] [phone] Social History Tobacco Use Types Packs/Day Years [...] Surgery as of this encounter Results * FOOT [...]
--- OUTSIDE RECORDS SUMMARY | 2017-09-23 16:38 | XMS REPORT | Encounter Summary ---
Author Author [facility] Organization [facility] Address Unknown Phone Unavailable Care Team Providers Care Business Project Analyst Name Role Phone Joao Mccabe MD Unavailable Vadim Waggoner MD PCP Reason for Visit * Auth/Cert Status Reason Specialty Diagnoses / Referred By Referred To Procedures Contact Contact Diagnoses Wound infection Wound infection Encounter Details Date Type Department Care Team Description 08/26/2017 Anesthesia Main Operating Room Denisse Patton MEDICAL RECORD RETRIEVAL SPECIALIST Event [facility] 2nd [place] [address] [facility] [address] [facility] [address] [place] [address] [place] [address] [phone] Anesthesia Record Procedure Name Responsible Anesthesia Start Time Anesthesia Stop Time Anesthesiologist AZRA LOWER Joss Cruz MD 08/26/17 1104 08/26/17 1349 EXTREMITY, ankle poly exchange (Right Ankle) Date Time Event Comment 929 AN Equip Check 2017 1025 Block Placed 1104 Anes Start 1105 Out of Pre Procedure 1106 In Room 1107 An Start Data 1113 An Induction The patient was reevaluated immediately before moderate or deep sedation use and before anesthesia induction. 1113 An Intubation 1114 Anesthesia Ready 1129 Antibiotic Given 1130 An Tourn Inflated 1140 Proc Start 1330 An Tourn Deflated 1340 An Extubation SV. TV>400. RR<20. Purposeful movement. LMA out. Sx. SV. FMO2. TO PACU. 1345 an stop data 1349 Handoff to RN I completed my SBAR handoff to the receiving nurse. 1349 An Stop Meds Name Total fentaNYL PF (SUBLIMAZE) injection 100 mcg lidocaine (2%) 200 mg/10mL Injection 100 mg syringe propofol (DIPRIVAN) 200 mg/ 20 mL 200 mg injection (VIAL) ondansetron (ZOFRAN) injection 4 mg phenylephrine (RASHAD-SYNEPHRINE) 0.1 mg/mL 250 mcg injection (SYRINGE) dextran 70/hypromellose (GENTEAL TEARS; 1 drop BION TEARS) ophthalmic solution ceFAZolin (ANCEF) IVP 2 g 2 g ropivacaine (PF) 0.5% (NAROPIN) 20 mL injection labetalol (NORMODYNE; TRANDATE) 5mg/mL 15 mg 20 mg injection (SYRINGE) haloperidol (HALDOL) injection 1 mg sodium chloride 0.9 % infusion 1,000 mL * Name O2 N2O Inspired N2O Air Sevoflurane Inspired Sevoflurane * No blood administrations on file. Type Details Placement Removal Wounds 08/26/17; 1149; Foot; Surgical Incision; 08/26/17 1149 by Elias, (NOT for DERMABOND, ADAPTIC, 4X4, SOFTROLLJimy RN Pressure VIZCARRA ROLL, SPLINT, HANDY Injuries) Wounds 08/23/17; 1305; Leg; Surgical Incision; 08/23/17 1305 by 1149 by Sam, (NOT for 08/26/17; 1149; SUTURES, Grace Burkett BSN Lea, RN Pressure DERMABOND,4X4S,SOFROLL, SPLINT, HANDY Injuries) Peripheral 08/26/17; 0944; RN; R; Inner; Forearm; 08/26/17 0944 by Joe, 08/27/17 1716 by Timothy, IV 20 G; No; 2; Therapy completed; YASMANI Riggs RN 08/27/17; 1716 [place]rag[place]ott 08/26/17; 1113; Ventilated by mask (1); 08/26/17 1113 by 1340 by ic Airway LMA; 4; 1 insertion attempt; Denisse Patton CRNA Armstrong, Renee, CRNA Auscultation, End-tidal CO2; 08/26/17; 1340 in this encounter Social History Tobacco Use Types Packs/Day Years Used Date Never Smoker Smokeless Tobacco: Never Used Alcohol Use Drinks/Week oz/Week Comments No Sex Assigned at Date Recorded Not on file as of this encounter Functional Status Functional Status Response Date of Assessment Does the patient have a hearing impairment: No 08/22/2017 Does the patient have a visual impairment: No 07/19/2017 Does the patient have impaired ambulation: Yes 07/19/2017 Does the patient have an activity of daily living No 07/19/2017 (ADL) impairment: Does the patient have an instrumental activity of Yes 07/19/2017 daily living (IADL) impairment: Cognitive Status Response Date of Assessment Does the patient have a cognitive impairment: No 07/19/2017 as of this encounter OR Notes * Anesthesia Postprocedure Evaluation - Mati Duncan, - 08/26/2017 3:26 PM CDT Post-Anesthesia Evaluation Name: Steff Azul : 1945 Age: 72 y.o. Sex: female Procedure Date: 08/26/2017 Procedure: Procedure(s): DEBRIDEMENT LOWER EXTREMITY, ankle poly exchange Surgeon: Surgeon(s): Joao Mccabe MD Grote, Caleb Post-Anesthesia Vitals BP: 167/69 (08/26 1500) Pulse: 79 (08/26 1500) Respirations: 22 PER MINUTE (08/26 1500) SpO2: 96 % (08/26 1500) O2 Delivery: Nasal Cannula (08/26 1500) SpO2 Pulse: 78 (08/26 1500) Post Anesthesia Evaluation Note Evaluation location: Pre/Post Patient participation: recovered; patient participated in evaluation Level of consciousness: alert Pain score: 3 Pain management: adequate Hydration: normovolemia Temperature: 36.0C - 38.4C Airway patency: adequate Regional/Neuraxial: Neurological status: motor deficit and sensory deficit Single injection shot performed Perioperative Events Perioperative events: no Post-op nausea and vomiting: no PONV Postoperative Status Cardiovascular status: hemodynamically stable Respiratory status: spontaneous ventilation Follow-up needed: none Additional comments: Patient having pain along the saphenous nerve distribution. Instructed to take prn medications while on the floor for pain control Perioperative Events Perioperative Event: No Emergency Case Activation: No Associated attestation - Deana DyeDO - 08/26/2017 4:27 PM CDT Formatting of this note may be different from the original. ATTESTATION Post-Anesthesia Evaluation Attestation: I reviewed and agree the indicated post- anesthesia care was provided. Staff name: Deana Dye DO Date: 08/26/2017 * Anesthesia Procedure Notes - Mitchel Parker, - 08/26/2017 11:59 AM CDT Associated Order(s): ANESTHESIA PERIPHERAL NERVE BLOCK Anesthesia Procedure: Peripheral Nerve Block PERIPHERAL NERVE [...] procedure. Performed by: MITCHEL PARKER Authorized by: JOSS CRUZ Associated attestation - Joss Cruz MD - 08/26/2017 12:04 PM CDT Formatting of this note may be different from the original. ATTESTATION I was present during the entire procedure performed by a resident Staff name: Vadim Cruz MD Date: 08/26/2017 * Anesthesia Preprocedure Evaluation - Joss Cruz MD - 08/26/2017 9: 39 AM CDT Formatting of this note may be different from the original. Anesthesia Pre-Procedure Evaluation Name: Steff Azul : 1945 Age: 72 y.o. Sex: female Procedure Date: 08/26/2017 Procedure: Procedure(s): DEBRIDEMENT LOWER EXTREMITY, ankle poly exchange Physical Assessment Vital Signs (last filed in past 24 hours): BP: 165/80 (08/26 506) Temp: 36.9 C (98.4 F) (08/26 506) Pulse: 74 (08/26 506) Respirations: 16 PER MINUTE (08/26 506) SpO2: 96 % (08/26 506) O2 Delivery: Nasal Cannula (08/26 506) Patient History No Known Allergies Current Medications Medication Directions acetaminophen (TYLENOL) 500 mg tablet Take 1,000 [...] mouth daily. BYSTOLIC 10 mg tablet Take 10 mg by mouth twice daily. calcium carbonate/vitamin D-3 (OSCAL-500+D) 1250 mg/200 unit tablet Take 1 tablet by mouth twice daily with meals. Calcium Carb 1250mg delivers 500mg elemental Ca cholecalciferol(+) (VITAMIN D-3) 2,000 unit tablet Take 2,000 Units by mouth daily. cloNIDine HCl (CATAPRESS) 0.1 mg tablet Take 0.1 mg by mouth twice daily. cycloSPORINE (RESTASIS) 0.05 % ophthalmic emulsion Place 1 Drop into or around eye(s) twice daily. docusate (COLACE) 100 mg capsule Take 1 capsule by mouth twice daily as needed for Constipation. duloxetine DR (CYMBALTA) 30 mg capsule Take 90 mg by mouth at bedtime daily. FLAXSEED OIL PO Take 1 tablet by mouth twice daily. furosemide (LASIX) 40 mg tablet Take 40 mg by mouth every morning. HYDROcodone/acetaminophen (NORCO) 5/325 mg tablet Take 1-2 tablets by mouth every 4 hours as needed for Pain ibandronate sodium (BONIVA IV) Administer through vein. lisinopril (PRINIVIL, ZESTRIL) 40 mg tablet Take 40 mg by mouth daily. LUMIGAN 0.01 % drop Apply 1 Drop to both eyes at bedtime daily. metroNIDAZOLE(+) (METROCREAM; VITAZOL; ROSADAN) 0.75 % topical cream Apply topically to affected area daily. potassium chloride SR (K-DUR) 20 mEq tablet Take 20 mEq by mouth twice daily. Take with a meal and a full glass of water. timolol (TIMOPTIC) 0.5 % ophthalmic solution Apply 1 Drop to both eyes daily. traMADol (ULTRAM) 50 mg tablet Take 1 tablet by mouth every 6 hours as needed for Pain. Patient taking differently: Take 100 mg by mouth at bedtime daily. Past Surgical History: Procedure Laterality Date TOTAL ANKLE ARTHROPLASTY Right 07/18/2017 ARTHROPLASTY REPLACEMENT TOTAL ANKLE (PROPHECY #[id number]) performed by Joao Mccabe MD at [facility] OR/Periop HARDWARE REMOVAL Right 07/18/2017 REMOVAL HARDWARE -DEEP performed by Joao Mccabe MD at [facility] OR/Periop ARTHRODESIS Right 07/18/2017 REPAIR TALONAVICULAR JOINT NONUNION performed by Joao Mccabe MD at [facility] OR/ Periop LEG DEBRIDEMENT Right 08/23/2017 DEBRIDEMENT LOWER EXTREMITY, ANKLE ARTRHROTOMY performed by Cristobal Neely MD at [facility] OR/Periop FOOT SURGERY HX FUSION PROCEDURE HX JOINT REPLACEMENT HX TONSILLECTOMY KNEE SURGERY LAMINECTOMY Review of Systems/Medical History Patient summary reviewed Nursing notes reviewed Pertinent labs reviewed PONV Screening: Female gender, Non-smoker and Postoperative opioids No history of anesthetic complications No family history of anesthetic complications Airway - negative 07-18-2017 Previous Grade 1 view Pulmonary Home oxygen use (2lpm qhs) No sleep apnea (Went to sleep study, told her stats drop to low 80s. Wears 2L at night. No issues during the day.) Cardiovascular Recent diagnostic studies: echocardiogram and stress test At OSH- neg per pt and normal EF Exercise tolerance: >4 METS (Prior to injury) Beta Noa therapy: Yes Beta blockers within 24 hours: Yes Hypertension (per pt. Has not had all meds this morning), well controlled Valvular problems/murmurs: MVP No angina Questionable afib with RVR during last surgery. no treatment needed GI/Hepatic/Renal No GERD, Renal disease (possibly 2/2 antibiotics ): ARF Nausea (yesterday. none today) Neuro/Psych Neuropathy (Numbness around foot since surgery) Musculoskeletal Back pain Arthritis Endocrine/Other - negative Physical Exam Airway Findings Mallampati: I TM distance: >3 FB Neck ROM: full Mouth opening: good Airway patency: adequate Dental Findings: Negative Cardiovascular Findings: Rhythm: regular Rate: normal Pulmonary Findings: Breath sounds clear to auscultation. Abdominal Findings: Not obese Comments: deferred Neurological Findings: Normal mental status Diagnostic Tests Hematology: Lab Results Component Value Date HGB 10.0 08/26/2017 HCT 30.4 08/26/2017 PLTCT 286 08/26/2017 WBC 6.8 08/26/2017 NEUT 83 08/25/2017 ANC 6.40 08/25/2017 ALC 0.50 08/25/2017 BENJAMIN 10 08/25/2017 AMC 0.70 08/25/2017 EOSA 1 08/25/2017 ABC 0.00 08/25/2017 MCV 90.8 08/26/2017 MCH 29.9 08/26/2017 MCHC 33.0 08/26/2017 MPV 7.5 08/26/2017 RDW 12.8 08/26/2017 General Chemistry: Lab Results Component Value Date NA 136 08/26/2017 K 4.3 08/26/2017 CL 104 08/26/2017 CO2 23 08/26/2017 GAP 9 08/26/2017 BUN 24 08/26/2017 CR 3.14 08/26/2017 GLU 81 08/26/2017 CA 8.7 08/26/2017 ALBUMIN 3.9 08/22/2017 TOTBILI 0.2 08/22/2017 Coagulation: No results found for: PT, PTT, INR Anesthesia Plan ASA score: 3 Plan: general and regional for postoperative pain Induction method: intravenous NPO status: acceptable Comments: (NPO solids 08/24 Pt seen and evaluated in holding, history and physical performed. Plan for GA + LMA, ASA monitors, large bore IV. Preop vs postop adductor canal and sciatic nerve blocks. ) Informed Consent Anesthetic plan and risks discussed with patient. Use of blood products discussed with patient; consented to blood products. Plan discussed with: anesthesiologist and MEDICAL RECORD RETRIEVAL SPECIALIST. in this encounter Plan of Treatment Date Type Specialty Care Team Description 09/16/2017 Procedure Pass Orthopedic Surgery as of this encounter Results * ANESTHESIA PERIPHERAL NERVE BLOCK (08/26/2017 4:59 [...] procedure. Performed by: MITCHEL PARKER Authorized by: JOSS CRUZ in this encounter Visit Diagnoses Not on filein this encounter Administered Medications Medication Order MAR Action Action Date Dose Rate Site ceFAZolin (ANCEF) IVP 2 g Given 08/26/2017 2 g 2 g, Intravenous, EVERY 12 HOURS, First 23:48 CDT dose on 08/25/17 at 2345, Until Discontinued, IV PUSH -- RECONSTITUTE each 1 g vial by adding 10 mL 0.9% NACL Given 08/27/2017 2 g 11:55 CDT Given 08/27/2017 2 g 23:53 CDT dextran 70/hypromellose (GENTEAL TEARS; Given 08/26/2017 1 drop BION TEARS) ophthalmic solution 11:14 CDT INTRA-PROCEDURE MED, Starting 08/26/17 at 1114, Until Fri08/26/17 at 1353, Dry Eyes, Anesthesia Intra-op fentaNYL citrate PF (SUBLIMAZE) Given 08/26/2017 50 mcg injection 11:15 CDT INTRA-PROCEDURE MED, Starting Fri08/26/17 at 1115, Until Fri08/26/17 at 1353, Pain Injectable, Anesthesia Intra-op Given 08/26/2017 25 mcg 12:13 CDT Given 08/26/2017 25 mcg 12:33 CDT haloperidol (HALDOL) injection Given 08/26/2017 1 mg INTRA-PROCEDURE MED, Starting Fri 13:14 CDT 08/26/17 at 1314, Until Fri08/26/17 at 1353, Agitation Injectable, Anxiety Injectable, Anesthesia Intra-op labetalol (NORMODYNE) injection Given 08/26/2017 5 mg INTRA-PROCEDURE MED, Starting Fri 12:53 CDT 08/26/17 at 1253, Until Fri08/26/17 at 1353, Systolic Blood Pressure..., Anesthesia Intra-op Given 08/26/2017 5 mg 13:00 CDT Given 08/26/2017 5 mg 13:12 CDT lidocaine (PF) injection Given 08/26/2017 100 mg INTRA-PROCEDURE MED, Starting Fri 11:13 CDT 08/26/17 at 1113, Until Fri08/26/17 at 1353, Anesthesia Intra-op ondansetron (ZOFRAN) injection Given 08/26/2017 4 mg Intravenous, INTRA-PROCEDURE MED, 12:50 CDT Starting Fri08/26/17 at 1250, Until Fri08/26/17 at 1353, Nausea/Vomiting Injectable, Anesthesia Intra-op phenylephrine in NS injection syringe Given 08/26/2017 50 mcg Intravenous, INTRA-PROCEDURE MED, 11:50 CDT Starting Fri08/26/17 at 1148, Until Fri08/26/17 at 1353, Symptomatic Hypotension, Anesthesia Intra-op Given 08/26/2017 50 mcg 11:56 CDT Given 08/26/2017 50 mcg 12:21 CDT propofol (DIPRIVAN) injection Given 08/26/2017 10 mg INTRA-PROCEDURE MED, Starting Fri 13:12 CDT 08/26/17 at 1113, Until Fri08/26/17 at 1353, Anesthesia Intra-op Given 08/26/2017 10 mg 13:25 CDT Given 08/26/2017 10 mg 13:35 CDT ropivacaine (PF) (NAROPIN) 0.5% (5 Given 08/26/2017 20 mL mg/mL) injection 10:25 CDT INTRA-PROCEDURE MED, Starting 08/26/17 at 1025, Until 08/26/17 at 1353, Anesthesia Intra-op sodium chloride 0.9 % infusion Given - New 08/26/2017 1,000 mL, 1,000 mL, Intravenous, at 20 Bag 11:04 CDT mL/hr, CONTINUOUS, Starting 08/26/17 at 0930, Until 08/26/17 at 1854, Pre-Op Given - New Bag 08/26/2017 13:21 CDT in this encounter
--- OUTSIDE RECORDS SUMMARY | 2017-09-23 16:38 | XMS REPORT | Encounter Summary ---
Author Author [facility] Organization [facility] Address Unknown Phone Unavailable Care Team Providers Care Machinery Mover Name Role Phone Joao Mccabe MD Unavailable Vadim Waggoner MD PCP Encounter Details Date Type Department Care Team Description 08/26/2017 Procedure Pass Main Operating Room [facility] [address] [place] [address] Social History Tobacco Use Types Packs/Day Years [...] impairment: No 07/19/2017 as of this encounter Plan of Treatment Date Type Specialty Care Team Description 09/16/2017 Procedure Pass Orthopedic Surgery as of this encounter Visit Diagnoses Not on filein this encounter
--- OUTSIDE RECORDS SUMMARY | 2017-09-23 16:38 | XMS REPORT | Encounter Summary ---
Author Author [facility] Organization [facility] Address Unknown Phone Unavailable Care Team Providers Care V Belt Builder Name Role Phone Joao Clemons MD Unavailable Vadim Waggoner MD PCP Reason for Visit * Reason Comments Post-Op Problem total right ankle replacement 5 weeks ago on 07/18/17 * Auth/Cert Status Reason Specialty Diagnoses / Referred By Referred To Procedures Contact Contact Diagnoses Wound infection Wound infection Encounter Details Date Type Department Care Team Description 08/22/2017 Hospital Ortho/Fam Med Grady Truong MD Wound infection - Encounter [address] [facility] 09/02/2017 43 [address] [place] [address] [place] [address] [phone] [place] [address] [place] [address] [place] [address] [phone] [place] [address] [place] [address] [place] [address] [phone] Social History Tobacco Use Types Packs/Day Years Used Date Never Smoker Smokeless Tobacco: Never Used Alcohol Use Drinks/Week oz/Week Comments No Sex Assigned at Date Recorded Not on file as of this encounter Last Filed Vital Signs Vital Sign Reading Time Taken Blood Pressure 173/78 09/02/2017 5:10 AM CDT Pulse 83 09/02/2017 5:10 AM CDT Temperature 36.9 C (98.4 F) 09/02/2017 5:10 AM CDT Respiratory Rate - - Oxygen Saturation 98% 09/02/2017 5:10 AM CDT Inhaled Oxygen - - Concentration Weight 79.4 kg (175 lb) 08/22/2017 10:41 AM CDT Height 167.6 cm (5' 6") 08/22/2017 10:41 AM CDT Body Mass Index 28.25 08/22/2017 10:41 AM CDT in this encounter Functional Status Functional [...] impairment: No 09/02/2017 as of this encounter Discharge Summaries * Jamil Madrid - 09/02/2017 1:03 PM CDT Formatting of this note may be different from the original. Physician Discharge Summary Name: Steff Azul Date Of : 1945 Age: 72 years Admit date: 08/22/2017 Discharge date: 09/02/17 Attending Physician: Dr. Clemons Service: Surgery-Ortho Physician Summary completed by: Jamil Madrid Reason for hospitalization: R total ankle infection Significant PMH: Past Medical History: Diagnosis Date Arthritis Back pain Fracture On supplemental oxygen therapy Osteoarthritis Osteoporosis Allergies: Cefazolin Brief Hospital Course: The patient was admitted with the following History of Present Illness: Steff Azul is a 72 y.o. female that presents to ED w/increasing R ankle swelling and erythema. Minimal pain. Total ankle arthroplasty and revision talonavicular fusion [address] Clemons, post operative course had been uncomplicated. Per patient she had purulent drainage from her wounds 2 days ago and a low grade fever yesterday. These issues were addressed as follows: The patient was taken to the OR on and 08/26. The patient underwent the below procedures. The post-operative course was complicated by ONI, pulmonary edema, rash from abx, and MGUS. Nephrology, infectious disease, hematology, and internal medicine were consults. IVF and nephrotoxic meds were initially held. ONI workup revealed monoclonal spike and there was initial concern for multiple myeloma but no lesions seen on skeletal survey. Pulmonary edema secondary to IVF and holding diurectics. This quickly resolved with lasix after creatinine improved. Abx had to be switched to daptomycin from cephalasporins secondary to rash. Cultures were positive for MSSA. Pt was taken to clinic prior to discharge for 1st post op visit and cast was applied. PICC line was placed and detention IV abx was established. The patient was deemed ready for discharge on 09/02, and was sent SNF with the instructions reproduced below. Admission Physical Exam notable for: Constitutional: AAOx3, NAD Eyes: eomi ENT: Oropharynx/Nasopharynx clear Respiratory: Unlabored respirations Cardiovascular: RRR Gastrointestinal: soft Skin: erythema about dorsal and medial incisions. purulent material readily expressed. Musculoskeletal: RLE: no pain w/pROM of ankle. ttp about incisions. 2+ dp. SILT. moderate swelling. Neurologic: as above Admission Lab/Radiology studies notable for: elevated inflammatory markers Surgical Procedures: Sharp excisional debridement of infected prosthetic ankle joint. This was a sharp excisional debridement, which skin, subcutaneous tissue and and some underlying muscle and bone were sharply debrided. DEBRIDEMENT LOWER EXTREMITY with arthrotomy, ankle poly exchange (Right) Condition at Discharge: Stable Discharge Diagnoses: Wound infection [T14.8XXA, L08.9] total ankle prosthetic joint infection acute kidney injury Monoclonal gammopathy of undetermined significance pulmonary edema drug reaction to ancef Significant Diagnostic Studies and Procedures: Noted in brief hospital course. Consults: Hematology, ID, Internal Medicine and Nephrology Patient Disposition: [facility] Patient instructions/medications: Activity as Tolerated It is important to keep increasing your activity level after you leave the hospital. Moving around can help prevent blood clots, lung infection (pneumonia ) and other problems. Gradually increasing the number of times you are up moving around will help you return to your normal activity level more quickly. Continue to increase the number of times you are up to the chair and walking daily to return to your normal activity level. - Increase activity as tolerated while maintaining your restrictions until further instructions at your follow up appointment - Increase walking as able and avoid sitting/standing/laying in one position for long periods of time - Perform exercises as instructed by physical therapy 2-3 times a day Restrictions for Right Leg Non-weight bearing: Keep leg completely off the ground at all times. Do not place any weight on your leg. Continue these restrictions until follow up appointment. Keep elevated. Activity as Tolerated It is important to keep increasing your activity level after you leave the hospital. Moving around can help prevent blood clots, lung infection (pneumonia ) and other problems. Gradually increasing the number of times you are up moving around will help you return to your normal activity level more quickly. Continue to increase the number of times you are up to the chair and walking daily to return to your normal activity level. - Increase activity as tolerated while maintaining your restrictions until further instructions at your follow up appointment - Perform exercises as instructed by physical therapy 2-3 times a day Restrictions for Right Leg Non-weight bearing: Keep leg completely off the ground at all times. Do not place any weight on your leg. Continue these restrictions until follow up appointment. Maintain splint Report These Signs and Symptoms Contact your doctor if you have any of the following symptoms: *temperature higher than 100 degrees *uncontrolled pain *persistenet nausea and/or vomiting *calf pain or tenderness *unable to urinate *unable to have a bowel movement *continued or increased drainage Ongoing swelling of your surgical leg can occur for 3 to 6 months. Bruising is very common as well but should decrease within a few weeks. Call 911 if you experience difficulty breathing, chest pain, or severe calf pain or swelling. Questions About Your Stay For questions or concerns regarding your hospital stay: DURING BUSINESS HOURS (8:00 AM - 4:30 PM) Call the Orthopedic clinic at [phone] AFTER BUSINESS HOURS AND WEEKENDS Call [phone] and ask the universal grinder set up operator to page the on-call Orthopedic Resident. Discharging attending physician: JOAO CLEMONS [[id number]] Regular Diet You have no dietary restriction. Please continue with a healthy balanced diet. While taking pain medications: - Drink plenty of fluids (not including alcohol) - Add extra fiber to your diet - Continue your stool softeners to help prevent constipation Complete if patient is going to a [facility] I certify that the patient requires skilled care Yes The patient's stay is expected to be less than 30 days Yes I will be in charge of patient in jail No Wound Care Keep wound clean and dry. Do not submerge under water. Incision Care maintain cast. Keep clean and dry. *Until your incision is healed DO NOT submerge/soak your incision site. *Avoid swimming and hot tubs *Avoid baths that allow your incision to soak. *Keep your incision clean. Wash hands before dressing changes. Do not allow dirty hands or pets to touch your incision. *Do not apply deodorants, powders, creams or lotions to your incision. Your incision should gradually look better each day. Notify your doctor if you notice swelling, redness, drainage, an increase in pain, or have a fever greater than 100 degrees Return Appointment Please call [phone] or [phone] to make or confirm post op appointment. [facility] Provider JOAO CLEMONS [[id number]] Opioid (Narcotic) Safety Information OPIOID (NARCOTIC) PAIN MEDICATION SAFETY We care about your comfort, and believe you need opioid medications at this time to treat your pain. An opioid is a strong pain medication. It is only available by prescription for moderate to severe pain. Usually these medications are used for only a short time to treat pain, but sometimes will be prescribed for longer. Talk with your doctor or nurse about how long they expect you to need this medication. When used the right way, opioids are safe and effective medications to treat your pain, even when used for a long time. Yet, when used in the wrong way, opioids can be dangerous for you or others. Opioids do not work for everyone. Most patients do not get full relief of their pain from opioid medication; full relief of your pain may not be possible. For your safety, we ask you to follow these instructions: *Only take your opioid medication as prescribed. If your pain is not controlled with the prescribed dose, or the medication is not lasting long enough, call your doctor. *Do not break or crush your opioid medication unless your doctor or pharmacist says you can. With certain medications, this can be dangerous, and may cause . *Never share your medications with others, even if they appear to have a good reason. Never take someone else's pain medication-this is dangerous, and illegal (a crime). Overdoses and deaths have occurred. *Keep your opioid medications safe, as you would with lewis, in a lock box or similar container. *Make sure your opioids are going to be secure, especially if you are around children or teens. *Talk with your doctor or pharmacist before you take other medications. *Avoid driving, operating machinery, or drinking alcohol while taking opioid pain medication. This may be unsafe. Pain medications can cause constipation. Constipation is bowel movements that are less often than normal. Stools often become very hard and difficult to pass. This may lead to stomach pain and bloating. It may also cause pain when trying to use the bathroom. Constipation may be treated with suppositories, laxatives or stool softeners. A diet high in fiber with plenty of fluids helps to maintain regular, soft bowel movements. PICC Line Skilled Nursing Care Instructions: *Catheter must be covered with plastic wrap before showering. Never submerge the catheter in a bathtub, hot tub, or swimming pool. *The dressing and biopatch must be changed every 7 days or as needed if it becomes wet or soiled. The injection caps should be changed every 7 days. Please refer to your physician, clinic, or home health nurse for dressing or cap change instructions. Return Appointment Dr. Reyes at [facility]. Appointment date: 12/01/2017 Appointment time: 2:00 PM Report These Signs and Symptoms Contact your doctor if you have any of the following symptoms: *temperature higher than 100 degrees *uncontrolled pain *persistenet nausea and/or vomiting *calf pain or tenderness *unable to urinate *unable to have a bowel movement *continued or increased drainage Ongoing swelling of your surgical leg can occur for 3 to 6 months. Bruising is very common as well but should decrease within a few weeks. Call 911 if you experience difficulty breathing, chest pain, or severe calf pain or swelling. Questions About Your Stay For questions or concerns regarding your hospital stay: DURING BUSINESS HOURS (8:00 AM - 4:30 PM) Call the Orthopedic clinic at [phone] AFTER BUSINESS HOURS AND WEEKENDS Call [phone] and ask the universal grinder set up operator to page the on-call Orthopedic Resident. Discharging attending physician: JOAO CLEMONS [[id number]] Regular Diet You have no dietary restriction. Please continue with a healthy balanced diet. While taking pain medications: - Drink plenty of fluids (not including alcohol) - Add extra fiber to your diet - Continue your stool softeners to help prevent constipation Incision Care *Until your incision is healed DO NOT submerge/soak your incision site. *Avoid swimming and hot tubs *Avoid baths that allow your incision to soak. *Keep your incision clean. Wash hands before dressing changes. Do not allow dirty hands or pets to touch your incision. *Do not apply deodorants, powders, creams or lotions to your incision. Your incision should gradually look better each day. Notify your doctor if you notice swelling, redness, drainage, an increase in pain, or have a fever greater than 100 degrees PICC Line Skilled Nursing Care Instructions: *Catheter must be covered with plastic wrap before showering. Never submerge the catheter in a bathtub, hot tub, or swimming pool. *The dressing and biopatch must be changed every 7 days or as needed if it becomes wet or soiled. The injection caps should be changed every 7 days. Please refer to your physician, clinic, or home health nurse for dressing or cap change instructions. Return Appointment [facility] Provider JOAO CLEMONS [[id number]] Appointment date: 09/16/2017 Appointment time: 12:30 PM Current Discharge Medication List START taking these medications Details DAPTOmycin (CUBICIN) 500 mg/10 mL solr Administer 9.5 mL through vein every 48 hours. Increase to q24h is CrCl improves to > 30 ml/min Qty: 1 each PRESCRIPTION TYPE: No Print ferrous sulfate (FEOSOL, FEROSUL) 325 mg (65 mg iron) tablet Take 1 tablet by mouth daily. Take on an empty stomach at least 1 hour before or 2 hours after food. Qty: 90 tablet, Refills: 3 PRESCRIPTION TYPE: No Print Comments: 1 tablet oral iron qhs on am empty stomach with vitamin C or orange juice nystatin (MYCOSTATIN) 100,000 units/mL oral suspension Take 5 mL by mouth four times daily. Refills: 0 PRESCRIPTION TYPE: No Print rifAMPin (RIFADINE) 300 mg capsule Take 1 capsule by mouth twice daily. Duration as directed by Infectious Disease. Take on an empty stomach at least 1 hour before or 2 hours after food. Refills: 0 PRESCRIPTION TYPE: No Print CONTINUE these medications which have been CHANGED or REFILLED Details !! BYSTOLIC 10 mg tablet Take 2 tablets by mouth twice daily. PRESCRIPTION TYPE: No Print cloNIDine (CATAPRESS) 0.2 mg tablet Take 1 tablet by mouth twice daily. Qty: 180 tablet, Refills: 3 PRESCRIPTION TYPE: No Print furosemide (LASIX) 40 mg tablet Take 1 tablet by mouth every morning. Take 1 tablet by mouth every morning Qty: 90 tablet, Refills: 3 PRESCRIPTION TYPE: No Print HYDROcodone/acetaminophen (NORCO) 5/325 mg tablet Take 1-2 tablets by mouth every 4 hours as needed for Pain Earliest Fill Date: 09/01/17 Qty: 60 tablet, Refills: 0 PRESCRIPTION TYPE: Print !! nebivolol (BYSTOLIC) 10 mg tablet Take 2 tablets by mouth twice daily. PRESCRIPTION TYPE: No Print oxycodone(+) (ROXICODONE, OXY-IR) 10 mg tablet Take 1 tablet by mouth every 4 hours as needed for Pain Qty: 80 tablet, Refills: 0 PRESCRIPTION TYPE: Print !! - Potential duplicate medications found. Please discuss with provider. CONTINUE these medications which have NOT CHANGED Details acetaminophen (TYLENOL) 500 mg tablet Take 1,000 mg by mouth three times daily as needed for Pain. PRESCRIPTION TYPE: Historical Med ALPRAZolam (XANAX) 0.25 mg tablet Take 0.25 mg by mouth at bedtime daily. PRESCRIPTION TYPE: Historical Med amLODIPine (NORVASC) 10 mg tablet Take 10 mg by mouth daily. PRESCRIPTION TYPE: Historical Med aspirin 325 mg tablet Take 325 mg by mouth daily. Take with food. PRESCRIPTION TYPE: Historical Med atorvastatin (LIPITOR) 20 mg tablet Take 20 mg by mouth daily. PRESCRIPTION TYPE: Historical Med calcium carbonate/vitamin D-3 (OSCAL-500+D) 1250 mg/200 unit tablet Take 1 tablet by mouth twice daily with meals. Calcium Carb 1250mg delivers 500mg elemental Ca PRESCRIPTION TYPE: Historical Med cholecalciferol(+) (VITAMIN D-3) 2,000 unit tablet Take 2,000 Units by mouth daily. PRESCRIPTION TYPE: Historical Med cycloSPORINE (RESTASIS) 0.05 % ophthalmic emulsion Place 1 Drop into or around eye(s) twice daily. PRESCRIPTION TYPE: Historical Med docusate (COLACE) 100 mg capsule Take 1 capsule by mouth twice daily as needed for Constipation. Qty: 180 capsule, Refills: 3 PRESCRIPTION TYPE: Print duloxetine DR (CYMBALTA) 30 mg capsule Take 90 mg by mouth at bedtime daily. PRESCRIPTION TYPE: Historical Med FLAXSEED OIL PO Take 1 tablet by mouth twice daily. PRESCRIPTION TYPE: Historical Med ibandronate sodium (BONIVA IV) Administer through vein. PRESCRIPTION TYPE: Historical Med LUMIGAN 0.01 % drop Apply 1 Drop to both eyes at bedtime daily. PRESCRIPTION TYPE: Historical Med metroNIDAZOLE(+) (METROCREAM; VITAZOL; ROSADAN) 0.75 % topical cream Apply topically to affected area daily. PRESCRIPTION TYPE: Historical Med potassium chloride SR (K-DUR) 20 mEq tablet Take 20 mEq by mouth twice daily. Take with a meal and a full glass of water. PRESCRIPTION TYPE: Historical Med timolol (TIMOPTIC) 0.5 % ophthalmic solution Apply 1 Drop to both eyes daily. PRESCRIPTION TYPE: Historical Med The following medications were removed from your list. This list includes medications discontinued this stay and those removed from your prior med list in our system CALCIUM PO ergocalciferol (vitamin D2) (VITAMIN D PO) lisinopril (PRINIVIL, ZESTRIL) 40 mg tablet ondansetron (ZOFRAN) 4 mg tablet traMADol (ULTRAM) 50 mg tablet Pending items needing follow up: Steff Azul was instructed to follow up as indicated above. [facility] Pager [phone] 09/04/2017 cc: Primary Care Physician: Verified Referring physicians: Additional provider(s): in this encounter Medications at Time of Discharge [...] ophthalmic solution daily. as of this encounter Progress Notes * Liz Lane RN - 09/02/2017 1:03 PM CDT Steff Langston Karenmarylu discharged on 09/02/2017. . Discharge instructions reviewed with patient Valuables returned: Personal Items / Valuables: Cell Phone Where Are Valuables Stored?: with pt. Home medications: n/a . Functional assessment at discharge complete:yes * Miguel Rosado MD - 09/02/2017 9:02 AM CDT Formatting of this note may be different from the original. Orthopedic Surgery Progress Note S: No acute events. Pain well-controlled. Patient tolerating current diet. Doing well. O: Blood pressure 173/78, pulse 83, temperature 36.9 C (98.4 F), height 167.6 cm (66"), weight 79.4 kg (175 lb), SpO2 98 %. Gen: A&O, NAD CV: Normal rate Pulm: Non-labored Abd: Soft, NT, ND Extremities: right lower extremity compartments compressible and no pain with passive stretch, SILT, distal cap refill < 2 sec, splint in place Dressings: Clean dry and intact. Complete Blood Counts Recent Labs 08/31/17 0330 09/01/17 0350 09/02/17 0330 HGB 10.4* 10.7* 9.7* HCT 31.5* 32.2* 29.6* WBC 10.2 12.3* 10.4 PLTCT 402* 474* 392 Chemistry Panel Recent Labs 08/31/17 0330 09/01/17 0350 09/02/17 0330 NA 135* 135* 136* K 3.5 4.0 3.5 CL 98 99 98 CO2 28 27 29 BUN 40* 35* 32* CR 2.40* 2.14* 1.89* GLU 123* 117* 110* CA 9.1 9.4 9.0 Coagulation Studies No results for input(s): PTT, INR in the last 72 hours. Problem List: Patient Active Problem List Diagnosis Date Noted Wound infection 08/22/2017 Ankle arthritis 07/01/2017 Arthritis of left foot 07/01/2017 Arthritis of foot 10/11/2015 A: Steff Langston Jorge Alberto is a 72 y.o. female s/p R TAA with post op infection s/p I &D 08/23, repeat I&D 08/26 with poly exchange. Hospital course included ONI pulmonary edema and a workup for MGUS. P: WB Status - NWB RLE ROM Status - As tolerated Antibiotics - Daptomycin, rif. ID following. Cltx. MSSA. Pain Control - continue current pain regimen Diet - continue regular diet PT/OT - consulted DVT PPX - Mechanical, Chemoprophylaxis Patient is being followed by Heme, IM, ID, Nephrology for number of conditions developed or discovered in the hospital including ONI, pulmonary edema, and MGUS. Recovering. Dispo: discharge today to [place] [id number] * Tamiko Vargas MD - 09/02/2017 8:16 AM CDT Formatting of this note may be different from the original. Infectious Diseases Progress Note Today's Date: 09/02/2017 Admission Date: 08/22/2017 Reason for this consultation: Total ankle replacement 07/18. Now w/post op infection. Assessment: MSSA Hardware infx complicating surg wound infection on R ankle 5 wks out R total ankle arthroplasty with shin Prophecy implant, gastroc resection, revision of talonavicular joint arthrodesis w/autogenous bone graft + infuse after removal of the prior deep implant Wound erythema, drainage around 08/20 from sinus tract R medial ankle along incision; swab GS: staph - cult MSSA OR 08/26 for poly exchange, GS neg, tissue cult 1 colony MSSA ONI with kappa protein spike In setting of vanc w/inc level HTN OA Drug rash 08/28 - most likely culprit cefazolin but possibly rifampin Acute hypoxic resp failure with R>L basilar infil - suspect edema Recommendations: 1. Continue Daptomycin- recheck CK in am 2. Cont RFP 300mg po bid today- low suspicion ROBERT was due to this and this is important component to atbx regimen 3. Monitor cbc/diff, cmp, ck for antibiotic toxicity 4. Tentatively 6 weeks of IV antibiotic therapy followed by 3 mo po; 5. At DC will need CBC CMP ESR/CRP weekly for ID- lasb faxed to ID [id number]. Renal would like labs every few days per their report- 6. FU in ID clinic in 2-3 weeks in coordination w Dr Clemons's FU Complexity of medical decision making is high b/c of the multi-system nature of the infectious disease process and concerns about the complexity of the patient illness including the sensitivity of the organisms being treated, the potential for drug toxicity and interactions, concerns about immunologic function, and interplay of other issues. History of Present Illness Afebrile. Vital signs stable. She feels better. Her breathing is better. Her rash is improving. The redness in her hands is resolved. She still has some puffiness but that is better. Her loose stool is better. Her C. difficile was negative. Cr is better. WBC stable. UO improved 800cc yesterday Micro reviewed- no new + culture We talked again about the importance of rifampin to her regimen. She would like to do anything possible that could help to prevent recurrent infection. She is willing to restart that as I think low likelihood of that causing her skin reaction is low We discussed outpt atbx- she darrell go toSNF Antimicrobial Start date End date vanc 08/22 08/25 zosyn 08/22 08/25 ancef 08/26 08/28 rif 08/26 dapto 08/28 Estimated Creatinine Clearance: 29.4 mL/min (A) (based on SCr of 1.89 mg/dL (H)) . Medications Scheduled Meds: amLODIPine (NORVASC) tablet 10 mg 10 mg Oral QDAY aspirin tablet 325 mg 325 mg Oral QDAY atorvastatin (LIPITOR) tablet 20 mg 20 mg Oral QDAY cloNIDine (CATAPRESS) tablet 0.2 mg 0.2 mg Oral BID cyclosporine (RESTASIS) 0.05 % ophthalmic emulsion 1 drop 1 drop Both Eyes BID DAPTOmycin (CUBICIN) injection 475 mg 6 mg/kg Intravenous Q48H* docusate (COLACE) capsule 100 mg 100 mg Oral BID(9-17) furosemide (LASIX) tablet 40 mg 40 mg Oral BID(-17) hydrocortisone 2.5 % topical cream Topical BID lactobacillus rhamnosus GG (CULTURELLE) 15 billion cell capsule 1 capsule 1 capsule Oral BID w/meals latanoprost (XALATAN) 0.005 % ophthalmic solution 1 drop 1 drop Both Eyes QHS milk of magnesia (CONC) oral suspension 10 mL 10 mL Oral QDAY(21) nebivolol (BYSTOLIC) tablet 20 mg 20 mg Oral BID nystatin (MYCOSTATIN) oral suspension 500,000 Units 500,000 Units Oral QID polyethylene glycol 3350 (MIRALAX) packet 17 g 1 packet Oral QDAY rifAMPin (RIFADINE) capsule 300 mg 300 mg Oral BID senna (SENOKOT) tablet 1 tablet 1 tablet Oral BID timolol maleate (TIMOPTIC) 0.5 % ophthalmic drops 1 drop 1 drop Both Eyes QDAY Continuous Infusions: PRN and Respiratory Meds:ALPRAZolam TID PRN, bisacodyl QDAY PRN, diphenhydrAMINE Q6H PRN OR diphenhydrAMINE Q6H PRN, fentaNYL citrate PF Q1H PRN, hydrALAZINE Q6H PRN, HYDROcodone/acetaminophen Q3H PRN, ondansetron (ZOFRAN ) IV Q6H PRN, prochlorperazine Q6H PRN Physical Examination Vital Signs: Last Vital Signs: 24 Hour Range BP: 173/78 (09/02 509) Temp: 36.9 C (98.4 F) (09/02 509) Pulse: 83 (09/02 509) Respirations: 18 PER MINUTE (09/02 509) SpO2: 98 % (09/02 509) O2 Delivery: None (Room Air) (09/02 509) BP: (146-189)/(56-91) Temp: [36.6 C (97.8 F)-36.9 C (98.4 F)] Pulse: [83-89] Respirations: [18 PER MINUTE] SpO2: [97 %-99 %] O2 Delivery: None (Room Air) General appearance: alert, oriented, HENT: tongue sl coated Lungs: bibasilar rales Heart: Regular rhythm, reg rate, with no murmur Abdomen: soft, non-tender, non-distended, normoactive bowel sounds Ext: less edema bilat hands-redness resolved RLE w cast Skin: maculopapular rash on abdomen and lateral breasts -resolving Lines: PICC no erythema Lab Review Hematology Recent Labs 08/31/17 0330 09/01/17 0350 09/02/17 0330 WBC 10.2 12.3* 10.4 HGB 10.4* 10.7* 9.7* HCT 31.5* 32.2* 29.6* PLTCT 402* 474* 392 Chemistry Recent Labs 08/31/17 0330 09/01/17 0350 09/02/17 0330 NA 135* 135* 136* K 3.5 4.0 3.5 CL 98 99 98 CO2 28 27 29 BUN 40* 35* 32* CR 2.40* 2.14* 1.89* GFR 20* 23* 26* GLU 123* 117* 110* CA 9.1 9.4 9.0 Microbiology, Radiology and other Diagnostics Review Microbiology data reviewed. Pertinent radiology images viewed. CXR 08/28 with bl pulm edema Tamiko Vargas MD Pager [phone] Infectious Diseases Faculty * Faustina Hobson, CHILD CARE CENTER ADMINISTRATOR-BURNING SUPERVISOR - 09/02/2017 7:49 AM CDT Formatting of this note may be different from the original. General Progress Note Name: Steff Azul Today's Date: 09/02/2017 Admission Date: 08/22/2017 LOS: 11 days Assessment/Plan: Active Problems: Wound infection 72 y.o. 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 Assessment ONI- improving - etiologies includes ATN in setting of NSAID & ACEI with some degree of volume contraction vs. AIN - baseline creatinine 0.6-0.8; peaked at 3.28, now improved at 2.14 - received vancomycin from 08/23-08/24, Zosyn from 08/22-08/25 for initial treatment of ankle infection - Nephrology consulted; avoiding nephrotoxins, hold ACEI, strict I/Os - restarting Cymbalta Acute hypoxic respiratory failure with pulmonary edema- Improved - likely pulmonary edema vs pneumonia, however underlying etiology unknown - improved with diuresis - low suspicion for HAP or aspiration pneumonia per ID given no fever, cough, or tachycardia - recent Echo (per patient report) at [facility] in [place], which was normal ; attempted to obtain report but has arrived Diarrhea- has occurred since starting antibiotics, C.diff negative on 08/25, repeat C.diff negative 09/01 Thrush- started on nystatin HTN- uncontrolled - NECKTIE STITCHER regimen of amlodipine 10mg daily, clonidine 0.1mg bid, nebivolol 10mg bid , lisinopril 40mg daily - NECKTIE STITCHER lisinopril held due to ONI - SBP 140-170s Monoclonal M-spike on SPEP, Anemia - likely MGUS in the setting of no lytic lesions on skeletal survey - discovered during workup of ONI - skeletal survey (08/28) with no evidence of lytic lesions - urine PARMJIT with free kappa light chain - Hematology consulted; will follow up outpatient Hematology [facility] - will start on iron on discharge MSSA hardware infection of R ankle -s/p I&D on 08/23 and 08/26 - NWB as tolerated to the RLE - ID consulted and following; initially started on Ancef 2g IV q 8 hrs & rifampin 300mg po bid - Ancef changed to daptomycin 08/28 due to rash likely caused by Ancef - tentatively planning on 6 weeks of IV antibiotic therapy followed by 3 months ofPO abx - now on daptomycin 475mg q 48 hours, rifampin being held for now HLD- continue NECKTIE STITCHER atorvastatin and ASA Recommendations: - continue supportive care for ONI; would recommend close follow up on discharge , BMP in 2-3 days ( or Friday) - discharge on Lasix 40mg daily (ordered) - continue amlodipine, increased dose of clonidine, increased dose of nebivolol and discontinue lisinopril on discharge (ordered) - ok to resume Cymbalta on discharge (ordered) - management of infection and antibiotics per primary team and ID Thank you for the consult. Note: All patient care calls should be directed first to the primary service. If the primary service needs further assistance, the service should page [phone] (24 hours a day/7 days a week) to discuss the case. Faustina Hobson APRN-BURNING SUPERVISOR Pager [phone] Subjective Steff Azul is a 72 y.o. female. Patient reports doing well today and is ready to leave the hospital if accepted to a facility today. She reports some shortness of breath with activity, but relates it more to weakness. Swelling to hands continues to improve. She reports that she normally took 40mg of Lasix daily prior to admit. She would like to restart her Cymbalta as soon as possible. She reports diarrhea has improved and is not occurring every time she urinates, but is still loose. Pain is improved to mouth, but tongue is now red. ROS: Gen - No fever or chills Resp - No dyspnea, cough CV - No chest pain GI - No nausea,vomiting, diarrhea, or abdominal pain Skin - Rash improved Medications Scheduled Meds: amLODIPine (NORVASC) tablet 10 mg 10 mg Oral QDAY aspirin tablet 325 mg 325 mg Oral QDAY atorvastatin (LIPITOR) tablet 20 mg 20 mg Oral QDAY cloNIDine (CATAPRESS) tablet 0.2 mg 0.2 mg Oral BID cyclosporine (RESTASIS) 0.05 % ophthalmic emulsion 1 drop 1 drop Both Eyes BID DAPTOmycin (CUBICIN) injection 475 mg 6 mg/kg Intravenous Q48H* docusate (COLACE) capsule 100 mg 100 mg Oral BID(9-17) furosemide (LASIX) tablet 40 mg 40 mg Oral BID(9-17) hydrocortisone 2.5 % topical cream Topical BID lactobacillus rhamnosus GG (CULTURELLE) 15 billion cell capsule 1 capsule 1 capsule Oral BID w/meals latanoprost (XALATAN) 0.005 % ophthalmic solution 1 drop 1 drop Both Eyes QHS milk of magnesia (CONC) oral suspension 10 mL 10 mL Oral QDAY(21) nebivolol (BYSTOLIC) tablet 20 mg 20 mg Oral BID nystatin (MYCOSTATIN) oral suspension 500,000 Units 500,000 Units Oral QID polyethylene glycol 3350 (MIRALAX) packet 17 g 1 packet Oral QDAY rifAMPin (RIFADINE) capsule 300 mg 300 mg Oral BID senna (SENOKOT) tablet 1 tablet 1 tablet Oral BID timolol maleate (TIMOPTIC) 0.5 % ophthalmic drops 1 drop 1 drop Both Eyes QDAY Continuous Infusions: PRN and Respiratory Meds:ALPRAZolam TID PRN, bisacodyl QDAY PRN, diphenhydrAMINE Q6H PRN OR diphenhydrAMINE Q6H PRN, fentaNYL citrate PF Q1H PRN, hydrALAZINE Q6H PRN, HYDROcodone/acetaminophen Q3H PRN, ondansetron (ZOFRAN ) IV Q6H PRN, prochlorperazine Q6H PRN Objective Vital Signs: Last Filed Vital Signs: 24 Hour Range BP: 173/78 (09/02 509) Temp: 36.9 C (98.4 F) (09/02 509) Pulse: 83 (09/02 509) Respirations: 18 PER MINUTE (09/02 509) SpO2: 98 % (09/02 509) O2 Delivery: None (Room Air) (09/02 509) BP: (146-189)/(56-91) Temp: [36.6 C (97.8 F)-36.9 C (98.4 F)] Pulse: [83-89] Respirations: [18 PER MINUTE] SpO2: [97 %-99 %] O2 Delivery: None (Room Air) Intensity Pain Scale 0-10 (Pain 1): 8 (09/01/17 2157) Vitals: 08/22/17 1041 Weight: 79.4 kg (175 lb) Intake/Output Summary: (Last 24 hours) Intake/Output Summary (Last 24 hours) at 09/02/17 0750 Last data filed at 09/02/17 0515 Gross per 24 hour Intake 0 ml Output 800 ml Net -800 ml Stool Occurrence: 1 Physical Exam General: Alert, cooperative, no distress, appears stated age. Head: Normocephalic, without obvious abnormality, atraumatic. Mouth: Improved white patches with some redness to tongue Eyes: Conjunctivae/corneas clear. PERRL. Lungs: Clear to auscultation bilaterally, no wheezes, rales or rhonchi Heart: Regular rate and rhythm, systolic murmur. Abdomen: Soft, non-tender, non-distended. Bowel sounds normal. Extremities: No cyanosis, clubbing. Mild edema to hands. Cast in place to the RLE. Pulses: 2+ radial pulses b/l Skin: Skin color, texture, turgor normal. No rashes or lesions. Lab Review 24-hour labs: Results for orders placed or performed during the hospital encounter of (from the past 24 hour(s)) BNP (B-TYPE NATRIURETIC PEPTI) Collection Time: 09/01/17 12:35 PM Result Value Ref Range B Type Natriuretic Peptide 204.0 (H) 0 - 100 PG/ML C DIFFICILE BY PCR Collection Time: 09/01/17 2:50 PM Result Value Ref Range Battery Name C DIFFICILE PCR Specimen Description FECES Special Requests NONE C. Difficile Toxin B PCR NEGATIVE-wait 7 days to repeat test Report Status FINAL 09/01/2017 CBC AND DIFF Collection Time: 09/02/17 3:30 AM Result Value Ref Range White Blood Cells 10.4 4.5 - 11.0 K/UL RBC 3.27 (L) 4.0 - 5.0 M/UL Hemoglobin 9.7 (L) 12.0 - 15.0 GM/DL Hematocrit 29.6 (L) 36 - 45 % MCV 90.6 80 - 100 FL MCH 29.7 26 - 34 PG MCHC 32.7 32.0 - 36.0 G/DL RDW 13.3 11 - 15 % Platelet Count 392 150 - 400 K/UL MPV 6.9 (L) 7 - 11 FL Neutrophils 78 (H) 41 - 77 % Lymphocytes 8 (L) 24 - 44 % Monocytes 11 4 - 12 % Eosinophils 3 0 - 5 % Basophils 0 0 - 2 % Absolute Neutrophil Count 8.10 (H) 1.8 - 7.0 K/UL Absolute Lymph Count 0.90 (L) 1.0 - 4.8 K/UL Absolute Monocyte Count 1.10 (H) 0 - 0.80 K/UL Absolute Eosinophil Count 0.30 0 - 0.45 K/UL Absolute Basophil Count 0.00 0 - 0.20 K/UL BASIC METABOLIC PANEL Collection Time: 09/02/17 3:30 AM Result Value Ref Range Sodium 136 (L) 137 - 147 MMOL/L Potassium 3.5 3.5 - 5.1 MMOL/L Chloride 98 98 - 110 MMOL/L CO2 29 21 - 30 MMOL/L Anion Gap 9 3 - 12 Glucose 110 (H) 70 - 100 MG/DL Blood Urea Nitrogen 32 (H) 7 - 25 MG/DL Creatinine 1.89 (H) 0.4 - 1.00 MG/DL Calcium 9.0 8.5 - 10.6 MG/DL eGFR Non 26 (L) >60 mL/min eGFR 32 (L) >60 mL/min Glucose: (!) 110 (09/02/17 0330) Radiology and other Diagnostics Review: Pertinent radiology reviewed. Point of Care Testing (Last 24 hours) Glucose: (!) 110 (09/02/17 7101) Faustina Hobson APRN-BURNING SUPERVISOR Pager [phone] Consult Pager [phone] Associated attestation - Nikolai Menchaca MD - 09/04/2017 8:44 PM CDT Formatting of this note may be different from the original. ATTESTATION I personally interviewed and examined the patient. I have reviewed the history , physical, impression and plan outlined by the Nurse Practitioner. General Progress Note Name: Steff Azul Today's Date: 09/02/2017 Admission Date: 08/22/2017 LOS: 11 days Assessment/Plan: Active Problems: Wound infection Steff scott is a 72-year-old femalemer with MSSA hardware infection complicating a surgical wound infection of the right ankle, hypertension, osteoarthritis, acute kidney injury with A protein spike, drug rash, acute hypoxic respiratory failure Acute kidney injury: Most likely ATN in the setting of NSAID/Handy inhibitor/ volume depletion/acute interstitial nephritis (was on HANDY and vancomycin as well as Zosyn). Baseline was around 0.8. Highest creatinine was 3.2 currently 1.89 From 2.14 yesterday. Monitor creatinine Acute hypoxic respiratory failure with acute pulmonary edema: Resolved. Echo reportedly normal done in June in [facility] at [place]. Currently on Lasix twice daily for pulmonary edema that has resolved. Patient states of being on Lasix for hypertension for 2 years. Currently no sign of volume overload hence may not continue at discharge. Uncontrolled Hypertension: BP with SBP - 170'S. Home regimen includes amlodipine 10 mg p.o. daily, clonidine 0.1 mg p.o. twice daily, nebivolol 10 mg twice daily, lisinopril 40 mg p.o. daily. Currently on amlodipine 10 mg p.o. daily clonidine 0.2 mg p.o. twice daily, and increased dose of Nobivolol to 20 mg po daily as well as as needed hydralazine 10 mg IV every 6. MSSA hardware infection complicating a surgical wound infection of the right ankle: Status post debridement on 08/23/2017 and 08/26/2017. Currently infectious disease consulted and is on daptomycin Oral thrush Diarrhea. While on antibiotics. C. difficile negative Recommendation: --Continue on current doses of Clonidine, Nebivolol that have been increased --Decrease dose Lasix of 40 mg po at discharge --get follow up BMP to follow with Creatinine --Antibiotics as per ID Subjective Steff Azul is a 72 y.o. female. Patient feels well today with some shortness of breath with exertion. Also states of swelling in her hands but feels better. Denies of any chest pain or cough. Eager to be discharged Objective Vital Signs: Last Filed Vital Signs: 24 Hour Range BP: 173/78 (09/02 509) Temp: 36.9 C (98.4 F) (09/02 509) Pulse: 83 (09/02 509) Respirations: 18 PER MINUTE (09/02 509) SpO2: 98 % (09/02 509) O2 Delivery: None (Room Air) (09/02 509) BP: (146-189)/(56-91) Temp: [36.6 C (97.8 F)-36.9 C (98.4 F)] Pulse: [83-89] Respirations: [18 PER MINUTE] SpO2: [97 %-99 %] O2 Delivery: None (Room Air) Intensity Pain Scale 0-10 (Pain 1): 8 (09/01/17 2157) Vitals: 08/22/17 1041 Weight: 79.4 kg (175 lb) Intake/Output Summary: (Last 24 hours) Intake/Output Summary (Last 24 hours) at 09/02/17 1453 Last data filed at 09/02/17 0935 Gross per 24 hour Intake 0 ml Output 1100 ml Net -1100 ml Stool Occurrence: 1 Physical Exam Gen: A&O, in NAD HEENT: mmm, op clear, nonicteric Neck: supple, no jvd CV: rrr without m/r/g Resp: CTA bilaterally Abd: soft/nt/nd/+bs Ext: right leg with splint and cast in place WOOL DYER: alert and oriented to PPT Lab Review 24-hour labs: Results for orders placed or performed during the hospital encounter of (from the past 24 hour(s)) CBC AND DIFF Collection Time: 09/02/17 3:30 AM Result Value Ref Range White Blood Cells 10.4 4.5 - 11.0 K/UL RBC 3.27 (L) 4.0 - 5.0 M/UL Hemoglobin 9.7 (L) 12.0 - 15.0 GM/DL Hematocrit 29.6 (L) 36 - 45 % MCV 90.6 80 - 100 FL MCH 29.7 26 - 34 PG MCHC 32.7 32.0 - 36.0 G/DL RDW 13.3 11 - 15 % Platelet Count 392 150 - 400 K/UL MPV 6.9 (L) 7 - 11 FL Neutrophils 78 (H) 41 - 77 % Lymphocytes 8 (L) 24 - 44 % Monocytes 11 4 - 12 % Eosinophils 3 0 - 5 % Basophils 0 0 - 2 % Absolute Neutrophil Count 8.10 (H) 1.8 - 7.0 K/UL Absolute Lymph Count 0.90 (L) 1.0 - 4.8 K/UL Absolute Monocyte Count 1.10 (H) 0 - 0.80 K/UL Absolute Eosinophil Count 0.30 0 - 0.45 K/UL Absolute Basophil Count 0.00 0 - 0.20 K/UL BASIC METABOLIC PANEL Collection Time: 09/02/17 3:30 AM Result Value Ref Range Sodium 136 (L) 137 - 147 MMOL/L Potassium 3.5 3.5 - 5.1 MMOL/L Chloride 98 98 - 110 MMOL/L CO2 29 21 - 30 MMOL/L Anion Gap 9 3 - 12 Glucose 110 (H) 70 - 100 MG/DL Blood Urea Nitrogen 32 (H) 7 - 25 MG/DL Creatinine 1.89 (H) 0.4 - 1.00 MG/DL Calcium 9.0 8.5 - 10.6 MG/DL eGFR Non 26 (L) >60 mL/min eGFR 32 (L) >60 mL/min CREATINE KINASE-CPK Collection Time: 09/02/17 3:30 AM Result Value Ref Range Creatine Kinase 26 21 - 215 U/L LIVER FUNCTION PANEL Collection Time: 09/02/17 3:30 AM Result Value Ref Range Total Bilirubin 0.4 0.3 - 1.2 MG/DL Bilirubin, Direct 0.1 <0.4 MG/DL Albumin 3.1 (L) 3.5 - 5.0 G/DL Alk Phosphatase 86 25 - 110 U/L AST (SGOT) 32 7 - 40 U/L ALT (SGPT) 15 7 - 56 U/L Total Protein 6.5 6.0 - 8.0 G/DL Point of Care Testing (Last 24 hours) Glucose: (!) 110 (09/02/17 0330) Radiology and other Diagnostics Review: Pertinent radiology reviewed. Staff name: Nikolai Menchaca MD Date: 09/02/17 Med-private Team consult Team Pager [phone] * Ayesha Gunderson, CHILD CARE CENTER ADMINISTRATOR - 09/01/2017 7:52 PM CDT Formatting of this note may be different from the original. General Progress Note Name: Steff Azul Today's Date: 09/01/2017 Admission Date: 08/22/2017 LOS: 10 days Assessment/Plan: Active Problems: Wound infection is a 72 yo female with PMH of osteoporosis, osteoarthritis and HTN who presented with a post-op MSSA infection of the right ankle s/p debridement and 08/26. Found to have an ONI with paraprotein. 1. MGUS -found during workup for ONI -M-spike 0.17, IgG kappa -kappa 7, lambda 2.4, ratio 2.8 -negative metastatic skeletal survey -urine PARMJIT with free kappa light chain 2. ONI -Cr peaked at 3.2, currently 2.14 -likely ATN from NSAIDs, HANDY inhibitor, volume depletion 3. Anemia -Hgb 10.7 -ferritin 88, TIBC 279, % sat 8, iron 21 -crp 7.8 Recommendations: -likely MGUS; Cr improving, iron deficiency a large component of anemia. -would start 1 tablet oral iron qhs on am empty stomach with vitamin C or orange juice -arranged f/u with @ [facility] in [place], [place] on 12/01 @ 2pm. Will fax records. Pt discussed with . Subjective Steff Azul is a 72 y.o. female. Patient is feeling well, new cast applied today. Continues to be very tired, pain is controlled. Denies fevers/ chills. No n/v or abdominal pain. Medications Scheduled Meds: amLODIPine (NORVASC) tablet 10 mg 10 mg Oral QDAY aspirin tablet 325 mg 325 mg Oral QDAY atorvastatin (LIPITOR) tablet 20 mg 20 mg Oral QDAY cloNIDine (CATAPRESS) tablet 0.2 mg 0.2 mg Oral BID cyclosporine (RESTASIS) 0.05 % ophthalmic emulsion 1 drop 1 drop Both Eyes BID DAPTOmycin (CUBICIN) injection 475 mg 6 mg/kg Intravenous Q48H* docusate (COLACE) capsule 100 mg 100 mg Oral BID(9-17) furosemide (LASIX) tablet 40 mg 40 mg Oral BID(9-17) hydrocortisone 2.5 % topical cream Topical BID lactobacillus rhamnosus GG (CULTURELLE) 15 billion cell capsule 1 capsule 1 capsule Oral BID w/meals latanoprost (XALATAN) 0.005 % ophthalmic solution 1 drop 1 drop Both Eyes QHS milk of magnesia (CONC) oral suspension 10 mL 10 mL Oral QDAY(21) nebivolol (BYSTOLIC) tablet 20 mg 20 mg Oral BID nystatin (MYCOSTATIN) oral suspension 500,000 Units 500,000 Units Oral QID polyethylene glycol 3350 (MIRALAX) packet 17 g 1 packet Oral QDAY rifAMPin (RIFADINE) capsule 300 mg 300 mg Oral BID senna (SENOKOT) tablet 1 tablet 1 tablet Oral BID timolol maleate (TIMOPTIC) 0.5 % ophthalmic drops 1 drop 1 drop Both Eyes QDAY Continuous Infusions: PRN and Respiratory Meds:ALPRAZolam TID PRN, bisacodyl QDAY PRN, diphenhydrAMINE Q6H PRN OR diphenhydrAMINE Q6H PRN, fentaNYL citrate PF Q1H PRN, hydrALAZINE Q6H PRN, HYDROcodone/acetaminophen Q3H PRN, ondansetron (ZOFRAN ) IV Q6H PRN, prochlorperazine Q6H PRN Review of Systems: A 14 point review of systems was negative except for: as per subjective Objective: Vital Signs: Last Filed Vital Signs: 24 Hour Range BP: 189/91 (09/01 1844) Temp: 36.6 C (97.8 F) (09/01 1844) Pulse: 83 (09/01 1844) Respirations: 18 PER MINUTE (09/01 1844) SpO2: 97 % (09/01 1844) O2 Delivery: None (Room Air) (09/01 1844) BP: (172-189)/(73-91) Temp: [36.6 C (97.8 F)-36.8 C (98.3 F)] Pulse: [83-97] Respirations: [16 PER MINUTE-18 PER MINUTE] SpO2: [97 %-99 %] O2 Delivery: None (Room Air) Intensity Pain Scale 0-10 (Pain 1): 4 (09/01/17 0820) Vitals: 08/22/17 1041 Weight: 79.4 kg (175 lb) Intake/Output Summary: (Last 24 hours) Intake/Output Summary (Last 24 hours) at 09/01/17 195 Last data filed at 09/01/17 1647 Gross per 24 hour Intake 0 ml Output 600 ml Net -600 ml Stool Occurrence: 1 Physical Exam General: A&O, no apparent distress Head: Normocephalic, without obvious abnormality, atraumatic Eyes: PERRL, anicteric sclera, conjunctiva and lids normal Nose: Nares normal. Septum midline. Mucosa normal. No drainageor sinus tenderness Neck: Supple, no rigidity Respiratory: no tachypnea Cardiovascular: no tachycardia Abdomen: BS normal all quadrants, soft, non-tender, non-distended Neurological: No focal deficits. Normal strength and sensation throughout Extremities: Cast RLE, No peripheral edema, no cyanosis or clubbing Skin: Color, texturs and turgor normal. No rashes or lesions Psychosocial: Appropriate Lab Review 24-hour labs: Results for orders placed or performed during the hospital encounter of (from the past 24 hour(s)) CBC AND DIFF Collection Time: 09/01/17 3:50 AM Result Value Ref Range White Blood Cells 12.3 (H) 4.5 - 11.0 K/UL RBC 3.52 (L) 4.0 - 5.0 M/UL Hemoglobin 10.7 (L) 12.0 - 15.0 GM/DL Hematocrit 32.2 (L) 36 - 45 % MCV 91.7 80 - 100 FL MCH 30.4 26 - 34 PG MCHC 33.2 32.0 - 36.0 G/DL RDW 13.3 11 - 15 % Platelet Count 474 (H) 150 - 400 K/UL MPV 7.1 7 - 11 FL Neutrophils 79 (H) 41 - 77 % Lymphocytes 8 (L) 24 - 44 % Monocytes 10 4 - 12 % Eosinophils 2 0 - 5 % Basophils 1 0 - 2 % Absolute Neutrophil Count 9.70 (H) 1.8 - 7.0 K/UL Absolute Lymph Count 0.90 (L) 1.0 - 4.8 K/UL Absolute Monocyte Count 1.20 (H) 0 - 0.80 K/UL Absolute Eosinophil Count 0.30 0 - 0.45 K/UL Absolute Basophil Count 0.10 0 - 0.20 K/UL BASIC METABOLIC PANEL Collection Time: 09/01/17 3:50 AM Result Value Ref Range Sodium 135 (L) 137 - 147 MMOL/L Potassium 4.0 3.5 - 5.1 MMOL/L Chloride 99 98 - 110 MMOL/L CO2 27 21 - 30 MMOL/L Anion Gap 9 3 - 12 Glucose 117 (H) 70 - 100 MG/DL Blood Urea Nitrogen 35 (H) 7 - 25 MG/DL Creatinine 2.14 (H) 0.4 - 1.00 MG/DL Calcium 9.4 8.5 - 10.6 MG/DL eGFR Non 23 (L) >60 mL/min eGFR 28 (L) >60 mL/min BNP (B-TYPE NATRIURETIC PEPTI) Collection Time: 09/01/17 12:35 PM Result Value Ref Range B Type Natriuretic Peptide 204.0 (H) 0 - 100 PG/ML Point of Care Testing (Last 24 hours) Glucose: (!) 117 (09/01/17 0350) Radiology and other Diagnostics Review: Pertinent radiology reviewed. Ayesha Gunderson, CHILD CARE CENTER ADMINISTRATOR Pager [phone] * Glo Vidal MD - 09/01/2017 5:51 PM CDT Formatting of this note may be different from the original. General Progress Note Admission Date: 08/22/2017 LOS: 10 days Assessment/Plan: ONI--DDx incl med tox (NSAID, ACEI) vs AIN. UO brisk yest, and Cr cont to improve. --will need to have labs checked every few days to make sure she cont to improve --will need to demonstrate that she can adequately empty bladder before DC SOB--DDx incl pulm edema vs inf vs PE. Resolved with diuresis Paraproteinemia/-uria--heme is following. No lytic lesions on skeletal survey. --will likely need heme/onc f/u as outpt --alternatively, PMD can follow periodic SPEP/PARMJIT, FLC, UPEP/PARMJIT Anemia--d/t inf vs BM process. Suspect former. Rash--suspect drug rash from antibx. Pt states she has never taken ceph before this adm. Possible dx/px/tx options d/w pt at length; all questions answered. Active Problems: Wound infection Subjective Steff Azul is a 72 y.o. female. Patient denies orth/sob, n/vom/d, CP, pain. C/o poor sleep every night here attributed to discomfort in bed. To rehab tomorrow. UO--1150 yest Cr-2.1 this am c/w 2.4 yest am Medications Scheduled Meds: amLODIPine (NORVASC) tablet 10 mg 10 mg Oral QDAY aspirin tablet 325 mg 325 mg Oral QDAY atorvastatin (LIPITOR) tablet 20 mg 20 mg Oral QDAY cloNIDine (CATAPRESS) tablet 0.2 mg 0.2 mg Oral BID cyclosporine (RESTASIS) 0.05 % ophthalmic emulsion 1 drop 1 drop Both Eyes BID DAPTOmycin (CUBICIN) injection 475 mg 6 mg/kg Intravenous Q48H* docusate (COLACE) capsule 100 mg 100 mg Oral BID(9-17) furosemide (LASIX) tablet 40 mg 40 mg Oral BID(9-17) hydrocortisone 2.5 % topical cream Topical BID lactobacillus rhamnosus GG (CULTURELLE) 15 billion cell capsule 1 capsule 1 capsule Oral BID w/meals latanoprost (XALATAN) 0.005 % ophthalmic solution 1 drop 1 drop Both Eyes QHS milk of magnesia (CONC) oral suspension 10 mL 10 mL Oral QDAY(21) nebivolol (BYSTOLIC) tablet 20 mg 20 mg Oral BID nystatin (MYCOSTATIN) oral suspension 500,000 Units 500,000 Units Oral QID polyethylene glycol 3350 (MIRALAX) packet 17 g 1 packet Oral QDAY rifAMPin (RIFADINE) capsule 300 mg 300 mg Oral BID senna (SENOKOT) tablet 1 tablet 1 tablet Oral BID timolol maleate (TIMOPTIC) 0.5 % ophthalmic drops 1 drop 1 drop Both Eyes QDAY Continuous Infusions: PRN and Respiratory Meds:ALPRAZolam TID PRN, bisacodyl QDAY PRN, diphenhydrAMINE Q6H PRN OR diphenhydrAMINE Q6H PRN, fentaNYL citrate PF Q1H PRN, hydrALAZINE Q6H PRN, HYDROcodone/acetaminophen Q3H PRN, ondansetron (ZOFRAN ) IV Q6H PRN, prochlorperazine Q6H PRN Objective Vital Signs: Last Filed Vital Signs: 24 Hour Range BP: 172/78 (09/01 1453) Temp: 36.8 C (98.2 F) (09/01 1453) Pulse: 89 (09/01 1453) Respirations: 18 PER MINUTE (09/01 1453) SpO2: 99 % (09/01 1453) O2 Delivery: None (Room Air) (09/01 1453) BP: (172-183)/(73-88) Temp: [36.7 C (98.1 F)-36.8 C (98.3 F)] Pulse: [89-99] Respirations: [16 PER MINUTE-18 PER MINUTE] SpO2: [97 %-99 %] O2 Delivery: None (Room Air) Intensity Pain Scale 0-10 (Pain 1): 4 (09/01/17 0820) Vitals: 08/22/17 1041 Weight: 79.4 kg (175 lb) Intake/Output Summary: (Last 24 hours) Intake/Output Summary (Last 24 hours) at 09/01/17 1751 Last data filed at 09/01/17 1647 Gross per 24 hour Intake 400 ml Output 1050 ml Net -650 ml Stool Occurrence: 1 Physical Exam Alert, nad Nc/at Oral mucosa moist anict RRR No crackles abd s, nt No LE or UE edema No dep edema Moves all extrem Answers questions approrpiately Lab Review Results for orders placed or performed during the hospital encounter of (from the past 24 hour(s)) CBC AND DIFF Collection Time: 09/01/17 3:50 AM # # Low-High White Blood Cells 12.3 (H) 4.5 - 11.0 K/UL RBC 3.52 (L) 4.0 - 5.0 M/UL Hemoglobin 10.7 (L) 12.0 - 15.0 GM/DL Hematocrit 32.2 (L) 36 - 45 % MCV 91.7 80 - 100 FL MCH 30.4 26 - 34 PG MCHC 33.2 32.0 - 36.0 G/DL RDW 13.3 11 - 15 % Platelet Count 474 (H) 150 - 400 K/UL MPV 7.1 7 - 11 FL Neutrophils 79 (H) 41 - 77 % Lymphocytes 8 (L) 24 - 44 % Monocytes 10 4 - 12 % Eosinophils 2 0 - 5 % Basophils 1 0 - 2 % Absolute Neutrophil Count 9.70 (H) 1.8 - 7.0 K/UL Absolute Lymph Count 0.90 (L) 1.0 - 4.8 K/UL Absolute Monocyte Count 1.20 (H) 0 - 0.80 K/UL Absolute Eosinophil Count 0.30 0 - 0.45 K/UL Absolute Basophil Count 0.10 0 - 0.20 K/UL BASIC METABOLIC PANEL Collection Time: 09/01/17 3:50 AM # # Low-High Sodium 135 (L) 137 - 147 MMOL/L Potassium 4.0 3.5 - 5.1 MMOL/L Chloride 99 98 - 110 MMOL/L CO2 27 21 - 30 MMOL/L Anion Gap 9 3 - 12 Glucose 117 (H) 70 - 100 MG/DL Blood Urea Nitrogen 35 (H) 7 - 25 MG/DL Creatinine 2.14 (H) 0.4 - 1.00 MG/DL Calcium 9.4 8.5 - 10.6 MG/DL eGFR Non 23 (L) >60 mL/min eGFR 28 (L) >60 mL/min BNP (B-TYPE NATRIURETIC PEPTI) Collection Time: 09/01/17 12:35 PM # # Low-High B Type Natriuretic Peptide 204.0 (H) 0 - 100 PG/ML N/A Point of Care Testing (Last 24 hours) Glucose: (!) 117 (09/01/17 0350) * Tamiko Vargas MD - 09/01/2017 10:19 AM CDT Formatting of this note may be different from the original. Infectious Diseases Progress Note Today's Date: 09/01/2017 Admission Date: 08/22/2017 Reason for this consultation: Total ankle replacement 07/18. Now w/post op infection. Assessment: MSSA Hardware infx complicating surg wound infection on R ankle 5 wks out R total ankle arthroplasty with shin Prophecy implant, gastroc resection, revision of talonavicular joint arthrodesis w/autogenous bone graft + infuse after removal of the prior deep implant Wound erythema, drainage around 08/20 from sinus tract R medial ankle along incision; swab GS: staph - cult MSSA OR 08/26 for poly exchange, GS neg, tissue cult 1 colony MSSA ONI with kappa protein spike In setting of vanc w/inc level HTN OA Drug rash 08/28 - most likely culprit cefazolin but possibly rifampin Acute hypoxic resp failure with R>L basilar infil - suspect edema Recommendations: 1. Continue Daptomycin- recheck CK in am 2. Restart RFP 300mg po bid today- low suspicion ROBERT was due to this and this is important component to atbx regimen (ordered) 3. FU C diff (ordered by team) 4. FU surgical cultures- anaerobes incomplete 5. Monitor cbc/diff, cmp for antibiotic toxicity 6. Tentatively 6 weeks of IV antibiotic therapy followed by 3 mo po; 7. At DC will need CBC CMP ESR/CRP faxed to ID [phone] 8. FU in ID clinic in 2-3 weeks in coordination w Dr Clemons's FU Complexity of medical decision making is high b/c of the multi-system nature of the infectious disease process and concerns about the complexity of the patient illness including the sensitivity of the organisms being treated, the potential for drug toxicity and interactions, concerns about immunologic function, and interplay of other issues. History of Present Illness Afebrile. Vital signs stable. She reports her breathing is improved. She continues to be diuresed. Her rash is better. Her hands are less swollen. Her left hand is almost returned to normal. She has no new rash or other skin changes. She denies oral lesions. No difficulty breathing. Mild cough She is having loose stools. This been going on for several days. Team ordered a C. difficile in progress. Denies abdominal pain nausea vomiting. We talked about the importance of rifampin to her regimen. She would like to do anything possible that could help to prevent recurrent infection. She is willing to restart that as I think low likelihood of that causing her skin reaction is low We discussed outpt atbx- she wlll go toSNF Antimicrobial Start date End date vanc 08/22 08/25 zosyn 08/22 08/25 ancef 08/26 08/28 rif 08/26 dapto 08/28 Estimated Creatinine Clearance: 26 mL/min (A) (based on SCr of 2.14 mg/dL (H)). Medications Scheduled Meds: amLODIPine (NORVASC) tablet 10 mg 10 mg Oral QDAY aspirin tablet 325 mg 325 mg Oral QDAY atorvastatin (LIPITOR) tablet 20 mg 20 mg Oral QDAY cloNIDine (CATAPRESS) tablet 0.2 mg 0.2 mg Oral BID cyclosporine (RESTASIS) 0.05 % ophthalmic emulsion 1 drop 1 drop Both Eyes BID DAPTOmycin (CUBICIN) injection 475 mg 6 mg/kg Intravenous Q48H* docusate (COLACE) capsule 100 mg 100 mg Oral BID(-) furosemide (LASIX) tablet 40 mg 40 mg Oral BID(-) hydrocortisone 2.5 % topical cream Topical BID lactobacillus rhamnosus GG (CULTURELLE) 15 billion cell capsule 1 capsule 1 capsule Oral BID w/meals latanoprost (XALATAN) 0.005 % ophthalmic solution 1 drop 1 drop Both Eyes QHS milk of magnesia (CONC) oral suspension 10 mL 10 mL Oral QDAY(21) nebivolol (BYSTOLIC) tablet 10 mg 10 mg Oral BID nystatin (MYCOSTATIN) oral suspension 500,000 Units 500,000 Units Oral QID polyethylene glycol 3350 (MIRALAX) packet 17 g 1 packet Oral QDAY senna (SENOKOT) tablet 1 tablet 1 tablet Oral BID timolol maleate (TIMOPTIC) 0.5 % ophthalmic drops 1 drop 1 drop Both Eyes QDAY Continuous Infusions: PRN and Respiratory Meds:ALPRAZolam TID PRN, bisacodyl QDAY PRN, diphenhydrAMINE Q6H PRN OR diphenhydrAMINE Q6H PRN, fentaNYL citrate PF Q1H PRN, hydrALAZINE Q6H PRN, HYDROcodone/acetaminophen Q3H PRN, ondansetron (ZOFRAN ) IV Q6H PRN, prochlorperazine Q6H PRN Physical Examination Vital Signs: Last Vital Signs: 24 Hour Range BP: 179/73 (09/02 611) Temp: 36.7 C (98.1 F) (09/02 611) Pulse: 93 (09/02 611) Respirations: 18 PER MINUTE (09/02 611) SpO2: 97 % (09/02 611) O2 Delivery: None (Room Air) (09/02 611) BP: (167-183)/(60-91) Temp: [36.4 C (97.6 F)-36.8 C (98.3 F)] Pulse: [88-102] Respirations: [16 PER MINUTE-18 PER MINUTE] SpO2: [96 %-97 %] O2 Delivery: None (Room Air) General appearance: alert, oriented, HENT: tongue sl coated Lungs: bibasilar rales Heart: Regular rhythm, reg rate, with no murmur Abdomen: soft, non-tender, non-distended, normoactive bowel sounds Ext: less edema and some erythema of bilat hands- dorsum and palmes, no scaling , RLE w cast Skin: maculopapular rash on abdomen and lateral breasts -resolving Lines: PICC no erythema Lab Review Hematology Recent Labs 08/30/17 0350 08/31/17 0330 09/01/17 0350 WBC 9.2 10.2 12.3* HGB 10.6* 10.4* 10.7* HCT 32.2* 31.5* 32.2* PLTCT 414* 402* 474* Chemistry Recent Labs 08/30/17 0350 08/31/17 0330 09/01/17 0350 NA 135* 135* 135* K 3.4* 3.5 4.0 CL 99 98 99 CO2 25 28 27 BUN 44* 40* 35* CR 2.62* 2.40* 2.14* GFR 18* 20* 23* GLU 121* 123* 117* CA 9.1 9.1 9.4 Microbiology, Radiology and other Diagnostics Review Microbiology data reviewed. Pertinent radiology images viewed. CXR 08/28 with bl pulm edema Tamiko Vargas MD Pager [phone] Infectious Diseases Faculty * Faustina Hobson, [facility] ADMINISTRATOR-BURNING SUPERVISOR - 09/01/2017 8:17 AM CDT Formatting of this note may be different from the original. General Progress Note Name: Steff Azul Today's Date: 09/01/2017 Admission Date: 08/22/2017 LOS: 10 days Assessment/Plan: Active Problems: Wound infection 72 y.o. 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 Assessment ONI- improving - etiologies includes ATN in setting of NSAID & ACEI with some degree of volume contraction vs. AIN - baseline creatinine 0.6-0.8; peaked at 3.28, now improved at 2.14 - received vancomycin from 08/23-08/24, Zosyn from 08/22-08/25 for initial treatment of ankle infection - Nephrology consulted; avoiding nephrotoxins, hold ACEI, strict I/Os - Holding Cymbalta in the setting of ONI Shortness of breath- improved - likely pulmonary edema vs pneumonia, however underlying etiology unknown - improved with diuresis - low suspicion for HAP or aspiration pneumonia per ID given no fever, cough, or tachycardia - recent Echo (per patient report) at [facility] in [place], which was normal Leukocytosis - WBC 12.3, Afebrile - recent CXR (08/30) with no acute process Diarrhea- has occurred since starting antibiotics, C.diff negative on 08/25. Thrush- patient reports oral pain and white patches on tongue HTN- uncontrolled - NECKTIE STITCHER regimen of amlodipine 10mg daily, clonidine 0.1mg bid, nebivolol 10mg bid , lisinopril 40mg daily - NECKTIE STITCHER lisinopril held due to ONI - SBP 170-180s Monoclonal M-spike on SPEP - likely MGUS in the setting of no lytic lesions on skeletal survey - discovered during workup of ONI - skeletal survey (08/28) with no evidence of lytic lesions - Hematology consulted MSSA hardware infection of R ankle -s/p I&D on 08/23 and 08/26 - NWB as tolerated to the RLE - ID consulted and following; initially started on Ancef 2g IV q 8 hrs & rifampin 300mg po bid - Ancef changed to daptomycin 08/28 due to rash likely caused by Ancef - tentatively planning on 6 weeks of IV antibiotic therapy followed by 3 months ofPO abx - now on daptomycin 475mg q 48 hours, rifampin being held for now HLD- continue NECKTIE STITCHER atorvastatin and ASA Recommendations: - continue supportive care for ONI; creatinine improving - obtain BNP (ordered) - obtain Echo results from [facility] (ordered) - continue Lasix 40mg BID for now; pending Echo reports from OSH, may discontinue prior to discharge - increase nebivolol to 20mg BID given ongoing HTN (ordered) - continue amlodipine, clonidine and PRN hydralazine for SBP > 180mmHg - obtain repeat C.diff (ordered) - start nystatin for thrush (ordered) - ok to resume Cymbalta on discharge - management of infection and antibiotics per primary team and ID Thank you for the consult. Note: All patient care calls should be directed first to the primary service. If the primary service needs further assistance, the service should page [phone] (24 hours a day/7 days a week) to discuss the case. Faustina Hobson APRN-BURNING SUPERVISOR Pager [phone] Subjective Steff Ivis Azul is a 72 y.o. female. Patient reports doing well today. Is possibly discharging to a jail today for a few weeks to improve her strength. She reports breathing is "back to normal". Denies SOB or cough. She does report feeling weak. Reports poor appetite and having "to force myself to eat", but drinking fluids without difficulty. She reports having diarrhea with every episode of urination. Denies dysuria. She does reports mouth feeling "painful". ROS: Gen - No fever or chills. Resp - No dyspnea, cough CV - No chest pain GI - No nausea,vomiting, constipation or abdominal pain Skin - Improving rash on trunk. Medications Scheduled Meds: amLODIPine (NORVASC) tablet 10 mg 10 mg Oral QDAY aspirin tablet 325 mg 325 mg Oral QDAY atorvastatin (LIPITOR) tablet 20 mg 20 mg Oral QDAY cloNIDine (CATAPRESS) tablet 0.2 mg 0.2 mg Oral BID cyclosporine (RESTASIS) 0.05 % ophthalmic emulsion 1 drop 1 drop Both Eyes BID DAPTOmycin (CUBICIN) injection 475 mg 6 mg/kg Intravenous Q48H* docusate (COLACE) capsule 100 mg 100 mg Oral BID(-) furosemide (LASIX) tablet 40 mg 40 mg Oral BID(-) hydrocortisone 2.5 % topical cream Topical BID lactobacillus rhamnosus GG (CULTURELLE) 15 billion cell capsule 1 capsule 1 capsule Oral BID w/meals latanoprost (XALATAN) 0.005 % ophthalmic solution 1 drop 1 drop Both Eyes QHS milk of magnesia (CONC) oral suspension 10 mL 10 mL Oral QDAY(21) nebivolol (BYSTOLIC) tablet 10 mg 10 mg Oral BID polyethylene glycol 3350 (MIRALAX) packet 17 g 1 packet Oral QDAY senna (SENOKOT) tablet 1 tablet 1 tablet Oral BID timolol maleate (TIMOPTIC) 0.5 % ophthalmic drops 1 drop 1 drop Both Eyes QDAY Continuous Infusions: PRN and Respiratory Meds:ALPRAZolam TID PRN, bisacodyl QDAY PRN, diphenhydrAMINE Q6H PRN OR diphenhydrAMINE Q6H PRN, fentaNYL citrate PF Q1H PRN, hydrALAZINE Q6H PRN, HYDROcodone/acetaminophen Q3H PRN, ondansetron (ZOFRAN ) IV Q6H PRN, prochlorperazine Q6H PRN Objective Vital Signs: Last Filed Vital Signs: 24 Hour Range BP: 179/73 (09/02 611) Temp: 36.7 C (98.1 F) (09/02 611) Pulse: 93 (09/02 611) Respirations: 18 PER MINUTE (09/02 611) SpO2: 97 % (09/02 611) O2 Delivery: None (Room Air) (09/02 611) BP: (157-183)/(60-91) Temp: [36.4 C (97.6 F)-36.8 C (98.3 F)] Pulse: [86-102] Respirations: [16 PER MINUTE-18 PER MINUTE] SpO2: [96 %-98 %] O2 Delivery: None (Room Air) Intensity Pain Scale 0-10 (Pain 1): 8 (09/01/17 0350) Vitals: 08/22/17 1041 Weight: 79.4 kg (175 lb) Intake/Output Summary: (Last 24 hours) Intake/Output Summary (Last 24 hours) at 09/01/17 0817 Last data filed at 09/01/17 0639 Gross per 24 hour Intake 1755 ml Output 1150 ml Net 605 ml Stool Occurrence: 1 Physical Exam General: Alert, cooperative, no distress, appears stated age. Head: Normocephalic, without obvious abnormality, atraumatic. Eyes: Conjunctivae/corneas clear. PERRL. Mouth: white patches to the tongue Lungs: Clear to auscultation bilaterally, no wheezes, rales or rhonchi Heart: Regular rate and rhythm, no murmurs. Abdomen: Soft, non-tender, non-distended. Bowel sounds normal. Extremities: No cyanosis, clubbing. Cast in place to RLE. Mild non-pitting edema to LLE. Trace edema to bilateral hands. Pulses: 2+ radial pulses b/l Skin: Skin color, texture, turgor normal. No rashes or lesions. Lab Review 24-hour labs: Results for orders placed or performed during the hospital encounter of (from the past 24 hour(s)) CBC AND DIFF Collection Time: 09/01/17 3:50 AM Result Value Ref Range White Blood Cells 12.3 (H) 4.5 - 11.0 K/UL RBC 3.52 (L) 4.0 - 5.0 M/UL Hemoglobin 10.7 (L) 12.0 - 15.0 GM/DL Hematocrit 32.2 (L) 36 - 45 % MCV 91.7 80 - 100 FL MCH 30.4 26 - 34 PG MCHC 33.2 32.0 - 36.0 G/DL RDW 13.3 11 - 15 % Platelet Count 474 (H) 150 - 400 K/UL MPV 7.1 7 - 11 FL Neutrophils 79 (H) 41 - 77 % Lymphocytes 8 (L) 24 - 44 % Monocytes 10 4 - 12 % Eosinophils 2 0 - 5 % Basophils 1 0 - 2 % Absolute Neutrophil Count 9.70 (H) 1.8 - 7.0 K/UL Absolute Lymph Count 0.90 (L) 1.0 - 4.8 K/UL Absolute Monocyte Count 1.20 (H) 0 - 0.80 K/UL Absolute Eosinophil Count 0.30 0 - 0.45 K/UL Absolute Basophil Count 0.10 0 - 0.20 K/UL BASIC METABOLIC PANEL Collection Time: 09/01/17 3:50 AM Result Value Ref Range Sodium 135 (L) 137 - 147 MMOL/L Potassium 4.0 3.5 - 5.1 MMOL/L Chloride 99 98 - 110 MMOL/L CO2 27 21 - 30 MMOL/L Anion Gap 9 3 - 12 Glucose 117 (H) 70 - 100 MG/DL Blood Urea Nitrogen 35 (H) 7 - 25 MG/DL Creatinine 2.14 (H) 0.4 - 1.00 MG/DL Calcium 9.4 8.5 - 10.6 MG/DL eGFR Non 23 (L) >60 mL/min eGFR 28 (L) >60 mL/min Glucose: (!) 117 (09/01/17 0350) Radiology and other Diagnostics Review: Pertinent radiology reviewed. Point of Care Testing (Last 24 hours) Glucose: (!) 117 (09/01/17 0350) Faustina Hobson APRN-BURNING SUPERVISOR Pager [phone] Consult Pager [phone] Associated attestation - Nikolai Menchaca MD - 09/01/2017 2:55 PM CDT Formatting of this note may be different from the original. ATTESTATION I personally interviewed and examined the patient. I have reviewed the history , physical, impression and plan outlined by the Nurse Practitioner. General Progress Note Name: Steff Azul Today's Date: 09/01/2017 Admission Date: 08/22/2017 LOS: 10 days Assessment/Plan: Active Problems: Wound infection Steff scott is a 72-year-old femalemer with MSSA hardware infection complicating a surgical wound infection of the right ankle, hypertension, osteoarthritis, acute kidney injury with A protein spike, drug rash, acute hypoxic respiratory failure Acute kidney injury: Most likely ATN in the setting of NSAID/Handy inhibitor/ volume depletion/acute interstitial nephritis (was on HANDY and vancomycin as well as Zosyn). Baseline was around 0.8. Highest creatinine was 3.2 currently 2.14. Monitor creatinine Acute hypoxic respiratory failure with pulmonary edema: Resolved. Echo reportedly normal done in June in [facility]. Currently on Lasix twice daily for pulmonary edema that has resolved. Patient states of being on Lasix for hypertension for 2 years. Currently no sign of volume overload hence may not continue at discharge. Uncontrolled Hypertension: Home regimen includes amlodipine 10 mg p.o. daily, clonidine 0.1 mg p.o. twice daily, nebivolol 10 mg twice daily, lisinopril 40 mg p.o. daily. Currently on amlodipine 10 mg p.o. daily clonidine 0.2 mg p.o. twice daily, as needed hydralazine 10 mg IV every 6. MSSA hardware infection complicating a surgical wound infection of the right ankle: Status post debridement on 08/23/2017 and 08/26/2017. Currently infectious disease consulted and is on daptomycin Oral thrush Diarrhea. While on antibiotics. C. difficile negative Recommendation: --Increase nebivolol to 20 mg p.o. twice daily --BNP obtained borderline value --To get actual report of echocardiogram from [facility] --Contemplate on discontinuing Lasix at discharge --Nystatin for thrush --Antibiotics as per ID Subjective Steff Azul is a 72 y.o. female. Patient feeling well overall. Had cast placed in on the right leg. Denies of any shortness of breath, chest pain , or cough. Denies of any nausea vomiting. Indicated that she was on Lasix 40 mg twice a day for 2 years for her high blood pressure. Hydralazine does not work for her because it makes her legs well. Objective Vital Signs: Last Filed Vital Signs: 24 Hour Range BP: 179/73 (07/23 0612) Temp: 36.7 C (98.1 F) (09/02 611) Pulse: 93 (09/02 611) Respirations: 18 PER MINUTE (09/02 611) SpO2: 97 % (09/02 611) O2 Delivery: None (Room Air) (09/02 611) BP: (167-183)/(60-88) Temp: [36.4 C (97.6 F)-36.8 C (98.3 F)] Pulse: [93-102] Respirations: [16 PER MINUTE-18 PER MINUTE] SpO2: [96 %-97 %] O2 Delivery: None (Room Air) Intensity Pain Scale 0-10 (Pain 1): 8 (09/01/17 0350) Vitals: 08/22/17 1041 Weight: 79.4 kg (175 lb) Intake/Output Summary: (Last 24 hours) Intake/Output Summary (Last 24 hours) at 09/01/17 1443 Last data filed at 09/01/17 0639 Gross per 24 hour Intake 800 ml Output 950 ml Net -150 ml Stool Occurrence: 1 Physical Exam Gen: A&O, in NAD HEENT: mmm, white patch in the mouth, Nonicteric Neck: supple, no jvd CV: rrr without m/r/g Resp: CTA bilaterally Abd: soft/nt/nd/+bs Ext: Bony prominence in the proximal and distal interphalangeal joints (Heberden 's and Pauline's nodes). Right leg was casted. Trace pitting edema on the on both lower extremities. WOOL DYER: No focal neurologic deficit Lab Review 24-hour labs: Results for orders placed or performed during the hospital encounter of (from the past 24 hour(s)) CBC AND DIFF Collection Time: 09/01/17 3:50 AM Result Value Ref Range White Blood Cells 12.3 (H) 4.5 - 11.0 K/UL RBC 3.52 (L) 4.0 - 5.0 M/UL Hemoglobin 10.7 (L) 12.0 - 15.0 GM/DL Hematocrit 32.2 (L) 36 - 45 % MCV 91.7 80 - 100 FL MCH 30.4 26 - 34 PG MCHC 33.2 32.0 - 36.0 G/DL RDW 13.3 11 - 15 % Platelet Count 474 (H) 150 - 400 K/UL MPV 7.1 7 - 11 FL Neutrophils 79 (H) 41 - 77 % Lymphocytes 8 (L) 24 - 44 % Monocytes 10 4 - 12 % Eosinophils 2 0 - 5 % Basophils 1 0 - 2 % Absolute Neutrophil Count 9.70 (H) 1.8 - 7.0 K/UL Absolute Lymph Count 0.90 (L) 1.0 - 4.8 K/UL Absolute Monocyte Count 1.20 (H) 0 - 0.80 K/UL Absolute Eosinophil Count 0.30 0 - 0.45 K/UL Absolute Basophil Count 0.10 0 - 0.20 K/UL BASIC METABOLIC PANEL Collection Time: 09/01/17 3:50 AM Result Value Ref Range Sodium 135 (L) 137 - 147 MMOL/L Potassium 4.0 3.5 - 5.1 MMOL/L Chloride 99 98 - 110 MMOL/L CO2 27 21 - 30 MMOL/L Anion Gap 9 3 - 12 Glucose 117 (H) 70 - 100 MG/DL Blood Urea Nitrogen 35 (H) 7 - 25 MG/DL Creatinine 2.14 (H) 0.4 - 1.00 MG/DL Calcium 9.4 8.5 - 10.6 MG/DL eGFR Non 23 (L) >60 mL/min eGFR 28 (L) >60 mL/min BNP (B-TYPE NATRIURETIC PEPTI) Collection Time: 09/01/17 12:35 PM Result Value Ref Range B Type Natriuretic Peptide 204.0 (H) 0 - 100 PG/ML Point of Care Testing (Last 24 hours) Glucose: (!) 117 (09/01/17 0350) Radiology and other Diagnostics Review: Pertinent radiology reviewed. Staff name: Nikolai Menchaca MD Date: 09/01/17 Med-Consult team Team Pager [phone] * Jamil Madrid - 09/01/2017 7:31 AM CDT Formatting of this note may be different from the original. Orthopedic Surgery Progress Note S: No acute events. Pain well-controlled. Patient tolerating current diet. Doing well. Will go to clinic today for splint change. O: Blood pressure 179/73, pulse 93, temperature 36.7 C (98.1 F), height 167.6 cm (66"), weight 79.4 kg (175 lb), SpO2 97 %. Gen: A&O, NAD CV: Normal rate Pulm: Non-labored Abd: Soft, NT, ND Extremities: right lower extremity compartments compressible and no pain with passive stretch, SILT, distal cap refill < 2 sec, splint in place Dressings: Clean dry and intact. Complete Blood Counts Recent Labs 08/30/17 [id number]/31/1732909/01/17 035 HGB 10.6* 10.4* 10.7* HCT 32.2* 31.5* 32.2* WBC 9.2 10.2 12.3* PLTCT 414* 402* 474* Chemistry Panel Recent Labs 08/30/1734908/31/1732909/01/17 035 NA 135* 135* 135* K 3.4* 3.5 4.0 CL 99 98 99 CO2 25 28 27 BUN 44* 40* 35* CR 2.62* 2.40* 2.14* GLU 121* 123* 117* CA 9.1 9.1 9.4 Coagulation Studies No results for input(s): PTT, INR in the last 72 hours. Problem List: Patient Active Problem List Diagnosis Date Noted Wound infection 08/22/2017 Ankle arthritis 07/01/2017 Arthritis of left foot 07/01/2017 Arthritis of foot 10/11/2015 A: Steff Azul is a 72 y.o. female s/p R TAA with post op infection s/p I &D 08/23, repeat I&D 08/26 with poly exchange. Hospital course included ONI pulmonary edema and a workup for MGUS. P: WB Status - NWB RLE ROM Status - As tolerated Antibiotics - Daptomycin, rif. ID following. Cltx. MSSA. Pain Control - continue current pain regimen Diet - continue regular diet PT/OT - consulted DVT PPX - Mechanical, Chemoprophylaxis Patient is being followed by Heme, IM, ID, Nephrology for number of conditions developed or discovered in the hospital including ONI, pulmonary edema, and MGUS. Recovering. Dispo: discharge today to snf. to clinic today for 1st post op visit. [facility] [phone] * Ronnie Resendiz MD - 08/31/2017 2:55 PM CDT Formatting of this note may be different from the original. General Progress Note Admission Date: 08/22/2017 LOS: 9 days Assessment/Plan: Active Problems: Wound infection 72 y.o. 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 Shortness of breath- -improving with Lasix, Plan >Continue PO Lasix 40mg bid , if the patient goes to rehab , continue for one week Then it can be stopped May give more IV lasix if short of breath ONI- improving -: ATN in setting of NSAID & ACEI vs. 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 MSSA hardware infection of R ankle -s/p I&D on 08/26 -ID following: Ancef changed to daptomycin 08/28 due to rash likely caused by Ancef Plan >per ID: tentatively 6 weeks of IV antibiotic therapy followed by 3 months po ( rifampin + doxy) >continue daptomycin 475 mg q 48hrs & rifampin 300 mg bid, may consider stopping rifampin if rash progresses Hypokalemia replace kcl 40 meq po May schedule KCL 20 meq on discharge until off lasix Disposition senior living facility Please have SW check with senior living facility if the patient can be discharged on Daptomycin as it is expensive and some SNF may not accept the patient on this medication FEN: No IVF, Reg diet, lytes prn PPX: SCDs, chemoprophylaxis Ronnie Resendiz MD [id number] Subjective Pt feels less shortness of breath , BP still elevated to above 180 and several doses of hydralazine were used , yesterday two doses of lasix were used Review of Systems - No chest pain no shortness of breath , no fever , rash is improving Medications Scheduled Meds: amLODIPine (NORVASC) tablet 10 mg 10 mg Oral QDAY aspirin tablet 325 mg 325 mg Oral QDAY atorvastatin (LIPITOR) tablet 20 mg 20 mg Oral QDAY cloNIDine (CATAPRESS) tablet 0.2 mg 0.2 mg Oral BID cyclosporine (RESTASIS) 0.05 % ophthalmic emulsion 1 drop 1 drop Both Eyes BID DAPTOmycin (CUBICIN) injection 475 mg 6 mg/kg Intravenous Q48H* docusate (COLACE) capsule 100 mg 100 mg Oral BID(9-17) furosemide (LASIX) tablet 40 mg 40 mg Oral BID(9-17) hydrocortisone 2.5 % topical cream Topical BID lactobacillus rhamnosus GG (CULTURELLE) 15 billion cell capsule 1 capsule 1 capsule Oral BID w/meals latanoprost (XALATAN) 0.005 % ophthalmic solution 1 drop 1 drop Both Eyes QHS milk of magnesia (CONC) oral suspension 10 mL 10 mL Oral QDAY(21) nebivolol (BYSTOLIC) tablet 10 mg 10 mg Oral BID polyethylene glycol 3350 (MIRALAX) packet 17 g 1 packet Oral QDAY senna (SENOKOT) tablet 1 tablet 1 tablet Oral BID timolol maleate (TIMOPTIC) 0.5 % ophthalmic drops 1 drop 1 drop Both Eyes QDAY Continuous Infusions: PRN and Respiratory Meds:ALPRAZolam TID PRN, bisacodyl QDAY PRN, diphenhydrAMINE Q6H PRN OR diphenhydrAMINE Q6H PRN, fentaNYL citrate PF Q1H PRN, hydrALAZINE Q6H PRN, HYDROcodone/acetaminophen Q3H PRN, ondansetron (ZOFRAN ) IV Q6H PRN, prochlorperazine Q6H PRN Objective Vital Signs: Last Filed Vital Signs: 24 Hour Range BP: 180/91 (08/31 1340) Temp: 36.8 C (98.3 F) (08/31 1340) Pulse: 88 (09/01 1339) Respirations: 18 PER MINUTE (09/01 1339) SpO2: 97 % (09/01 1339) O2 Delivery: None (Room Air) (09/01 1339) BP: (157-184)/(65-98) Temp: [36.3 C (97.4 F)-37.1 C (98.7 F)] Pulse: [83-94] Respirations: [16 PER MINUTE-29 PER MINUTE] SpO2: [96 %-100 %] O2 Delivery: None (Room Air) Intensity Pain Scale 0-10 (Pain 1): 8 (08/30/174) Vitals: 08/22/17 1041 Weight: 79.4 kg (175 lb) Intake/Output Summary: (Last 24 hours) Intake/Output Summary (Last 24 hours) at 08/31/17 1455 Last data filed at 08/31/17 1154 Gross per 24 hour Intake 955 ml Output 1150 ml Net -195 ml Stool Occurrence: 1 Physical Exam General appearance: Alert, no acute distress Neck: Normal range of motion no JVD Lungs: Clear to auscultation bilaterally with diminished breath sounds, no wheezing, rhonchi or rales appreciated, normal work of breathing Heart: Regular rate and rhythm, no murmur Abdomen: Soft, not distended , normoactive bowel sounds, non-tender to palpation Ext: No edema, R lower extremity wrapped Skin: Erythematous rash present over abdomen, chest, upper thigh Lab Review CBC w/Diff Lab Results Component Value Date/Time WBC 10.2 08/31/2017 03:30 AM RBC 3.45 (L) 08/31/2017 03:30 AM HGB 10.4 (L) 08/31/2017 03:30 AM HCT 31.5 (L) 08/31/2017 03:30 AM MCV 91.3 08/31/2017 03:30 AM MCH 30.0 08/31/2017 03:30 AM MCHC 32.9 08/31/2017 03:30 AM RDW 13.3 08/31/2017 03:30 AM PLTCT 402 (H) 08/31/2017 03:30 AM MPV 7.3 08/31/2017 03:30 AM Lab Results Component Value Date/Time NEUT 79 (H) 08/31/2017 03:30 AM ANC 8.00 (H) 08/31/2017 03:30 AM LYMA 7 (L) 08/31/2017 03:30 AM ALC 0.70 (L) 08/31/2017 03:30 AM BENJAMIN 11 08/31/2017 03:30 AM AMC 1.20 (H) 08/31/2017 03:30 AM EOSA 3 08/31/2017 03:30 AM AEC 0.30 08/31/2017 03:30 AM BASA 0 08/31/2017 03:30 AM ABC 0.00 08/31/2017 03:30 AM Comprehensive Metabolic Profile Lab Results Component Value Date/Time NA 135 (L) 08/31/2017 03:30 AM K 3.5 08/31/2017 03:30 AM CL 98 08/31/2017 03:30 AM CO2 28 08/31/2017 03:30 AM GAP 9 08/31/2017 03:30 AM BUN 40 (H) 08/31/2017 03:30 AM CR 2.40 (H) 08/31/2017 03:30 AM GLU 123 (H) 08/31/2017 03:30 AM Lab Results Component Value Date/Time CA 9.1 08/31/2017 03:30 AM ALBUMIN 3.9 08/22/2017 11:15 AM TOTPROT 5.3 (L) 08/26/2017 04:00 AM ALKPHOS 72 08/22/2017 11:15 AM AST 16 08/22/2017 11:15 AM ALT 10 08/22/2017 11:15 AM TOTBILI 0.2 (L) 08/22/2017 11:15 AM GFR 20 (L) 08/31/2017 03:30 AM GFRAA 24 (L) 08/31/2017 03:30 AM Point of Care Testing (Last 24 hours) Glucose: (!) 123 Radiology and other Diagnostics Review: Reviewed Ronnie Resendiz MD * Navya Early - 08/31/2017 11:48 AM CDT PHYSICAL THERAPY MOBILITY NOTE Patient was mobilized today with the assistance of the P.T. mobility aide as part of the ongoing physical therapy plan of care. Mobility Progressive Mobility Level: Walk in hallway Distance Walked (feet): 80 ft Level of Assistance: Stand by assistance Assistive Device: Other (Comment) (4WW ) Time Tolerated: 0-10 minutes Activity Limited By: Weakness Aide: Navya Early Date: 08/31/2017 * Paradise Kelly, RT - 08/31/2017 9:39 AM CDT Formatting of this note may be different from the original. RESPIRATORY THERAPY ADULT PROTOCOL EVALUATION RESPIRATORY PROTOCOL PLAN Medications Note: If indicated by protocol, medication orders will be placed by therapist. Procedures Oxygen/Humidity: O2 to keep SpO2 > 92% Monitoring: Pulse oximetry BID & PRN Comment: 2L NC QHS PATIENT EVALUATION RESULTS Chart Review * Pulmonary Hx: No pulmonary diagnosis OR no smoking hx * Surgical Hx: General surgery (cough & sigh not affected) * Chest X-Ray: Clear OR not available * PFT/Oxygenation: FEV1, PEFR < 70% OR Pa02 < 70 RA OR Sp02 <92% RA OR Fi02 > 0.21 to keep Sp02 > 92% OR < 24 hours post-op (02 & oxim) OR chronic C02 retention (C02) Patient Assessment * Respiratory Pattern: Regular pattern and rate OR good chest excursion with deep breathing * Breath Sounds: Clear and able to auscultate bases posteriorly * Cough / Sputum: Strong, effective cough OR nonproductive * Mental Status: Alert, oriented, cooperative * Activity Level: Ambulatory with assistance Priority Index Total Points: 4 Points * Priority Index: 1 PRIORITY INDEX GUIDELINES* Priority Points 1 0-9 points 2 9-18 points 3 > 18 points + Pulm Dx or Home Rx *Higher points indicate higher acuity. Therapist: PARADISE KELLY, RT Date: 08/31/2017 [place] AC=Airway clearance AM=Aerosolized medication BA=[place] aerosol DB&C=Deep breathe & cough FEV1=Forced expiratory volume in first second) IC=Inspiratory capacity LE=Lung expansion MDI=Metered dose inhaler Neb=Nebulizer O2=Oxygen Oxim=Oximetry PEFR=Peak expiratory flow rate [employer] TEACHER=Rapid Response Team * Dmitriy Arguelles MD - 08/31/2017 6:46 AM CDT Formatting of this note may be different from the original. Orthopedic Surgery Progress Note S: No acute events. Pain well-controlled. Patient tolerating current diet. Feeling much better this AM. She is being closely monitored by multiple services. O: Blood pressure 170/84, pulse 94, temperature 36.8 C (98.3 F), height 167.6 cm (66"), weight 79.4 kg (175 lb), SpO2 100 %. Gen: A&O, NAD CV: Normal rate Pulm: Non-labored Abd: Soft, NT, ND Extremities: right lower extremity compartments compressible and no pain with passive stretch, TA/EHL/FHL/PT function intact, SILT, distal cap refill < 2 sec Incisions: Clean dry and intact. Complete Blood Counts Recent Labs 08/29/17 0430 08/30/17 0350 08/31/17 0330 HGB 10.1* 10.6* 10.4* HCT 28.8* 32.2* 31.5* WBC 8.7 9.2 10.2 PLTCT 333 414* 402* Chemistry Panel Recent Labs 08/29/17 0430 08/30/17 0350 08/31/17 0330 NA 135* 135* 135* K 3.5 3.4* 3.5 CL 101 99 98 CO2 27 25 28 BUN 38* 44* 40* CR 2.98* 2.62* 2.40* GLU 120* 121* 123* CA 8.8 9.1 9.1 Coagulation Studies No results for input(s): PTT, INR in the last 72 hours. Problem List: Patient Active Problem List Diagnosis Date Noted Wound infection 08/22/2017 Ankle arthritis 07/01/2017 Arthritis of left foot 07/01/2017 Arthritis of foot 10/11/2015 A: Steff Azul is a 72 y.o. female s/p R TAA with post op infection s/p I &D 08/23, repeat I&D 08/26 with poly exchange. Hospital course included ONI pulmonary edema and a workup for MGUS. P: WB Status - NWB RLE ROM Status - As tolerated Antibiotics - Daptomycin, rif. ID following Pain Control - continue current pain regimen Diet - continue regular diet PT/OT - consulted DVT PPX - Mechanical, Chemoprophylaxis Patient is being followed by Heme, IM, ID, Nephrology for number of conditions developed or discovered in the hospital including ONI, pulmonary edema, and MGUS. -- Plan to discharge Friday. Will need datpo at [facility] [id number] * Tamiko Vargas MD - 08/30/2017 4:44 PM CDT Formatting of this note may be different from the original. Infectious Diseases Progress Note Today's Date: 08/30/2017 Admission Date: 08/22/2017 Reason for this consultation: Total ankle replacement 07/18. Now w/post op infection. Assessment: MSSA Hardware infx complicating surg wound infection on R ankle 5 wks out R total ankle arthroplasty with shin VibeSececy implant, gastroc resection, revision of talonavicular joint arthrodesis w/autogenous bone graft + infuse after removal of the prior deep implant Wound erythema, drainage around 08/20 from sinus tract R medial ankle along incision; swab GS: staph - cult MSSA OR 08/26 for poly exchange, GS neg, tissue cult 1 colony MSSA ONI with kappa protein spike In setting of vanc w/inc level HTN OA Drug rash 08/28 - most likely culprit cefazolin but possibly rifampin Acute hypoxic resp failure with R>L basilar infil - suspect edema Recommendations: 1. Continue Daptomycin- recheck CK in am 2. I will hold RFP for today- given improved rash and renal function suspect improvement from stopping B lactam but concerned w new hand swelling and uncertainty if she has evolving lung process 3. FU surgical cultures- anaerobes incomplete 4. Monitor cbc/diff, cmp for antibiotic toxicity 5. Add differential to am labs 6. Monitor pulmonary status - FU CXR, consider 7. Tentatively 6 weeks of IV antibiotic therapy followed by 3 mo po; CM to help set up RN and home infusion 8. FU heme c/s and rec studies Her rash and Cr are kobi, suggesting she is responding the discontinuation of cefazolin. The hands are more swollen- this is bit disconcerning, ? Possible ongoing drug reaction vs related to previous exposure w B lactam Complexity of medical decision making is high b/c of the multi-system nature of the infectious disease process and concerns about the complexity of the patient illness including the sensitivity of the organisms being treated, the potential for drug toxicity and interactions, concerns about immunologic function, and interplay of other issues. History of Present Illness Remains afebrile. Vitals are stable. She had episode of hypoxia overnight again. Tx w IV lasix. Back on RA again. Still feels somewhat sob. No cough. No cp. Reports the rash on her trunk is stable to better- no longer itching. She has more swelling in her hands bilat and they seem somewhat erythematous. She reports this is worse today No N/v abd pain ROS otherwise neg Antimicrobial Start date End date vanc 08/22 08/25 zosyn 08/22 08/25 ancef 08/26 08/28 rif 08/26 dapto 08/28 Estimated Creatinine Clearance: 21.2 mL/min (A) (based on SCr of 2.62 mg/dL (H)) . Medications Scheduled Meds: amLODIPine (NORVASC) tablet 10 mg 10 mg Oral QDAY aspirin tablet 325 mg 325 mg Oral QDAY atorvastatin (LIPITOR) tablet 20 mg 20 mg Oral QDAY cloNIDine (CATAPRESS) tablet 0.1 mg 0.1 mg Oral BID cyclosporine (RESTASIS) 0.05 % ophthalmic emulsion 1 drop 1 drop Both Eyes BID DAPTOmycin (CUBICIN) injection 475 mg 6 mg/kg Intravenous Q48H* docusate (COLACE) capsule 100 mg 100 mg Oral BID(-) furosemide (LASIX) tablet 40 mg 40 mg Oral BID(10-27) hydrocortisone 2.5 % topical cream Topical BID lactobacillus rhamnosus GG (CULTURELLE) 15 billion cell capsule 1 capsule 1 capsule Oral BID w/meals latanoprost (XALATAN) 0.005 % ophthalmic solution 1 drop 1 drop Both Eyes QHS milk of magnesia (CONC) oral suspension 10 mL 10 mL Oral QDAY(21) nebivolol (BYSTOLIC) tablet 10 mg 10 mg Oral BID polyethylene glycol 3350 (MIRALAX) packet 17 g 1 packet Oral QDAY rifAMPin (RIFADINE) capsule 300 mg 300 mg Oral BID senna (SENOKOT) tablet 1 tablet 1 tablet Oral BID timolol maleate (TIMOPTIC) 0.5 % ophthalmic drops 1 drop 1 drop Both Eyes QDAY Continuous Infusions: PRN and Respiratory Meds:ALPRAZolam TID PRN, bisacodyl QDAY PRN, diphenhydrAMINE Q6H PRN OR diphenhydrAMINE Q6H PRN, fentaNYL citrate PF Q1H PRN, hydrALAZINE Q6H PRN, HYDROcodone/acetaminophen Q3H PRN, ondansetron (ZOFRAN ) IV Q6H PRN, prochlorperazine Q6H PRN Physical Examination Vital Signs: Last Vital Signs: 24 Hour Range BP: 167/79 (08/30 1537) Temp: 36.3 C (97.4 F) (08/30 1537) Pulse: 91 (08/30 1537) Respirations: 29 PER MINUTE (08/30 1537) SpO2: 96 % (08/30 1537) O2 Delivery: None (Room Air) (08/30 1537) BP: (157-193)/(73-92) Temp: [36.2 C (97.2 F)-37.3 C (99.1 F)] Pulse: [78-95] Respirations: [14 PER MINUTE-32 PER MINUTE] SpO2: [94 %-100 %] O2 Delivery: None (Room Air) General appearance: alert, oriented, NAD HENT: no thrush, no oral lesions Lungs: bibasilar rales near resolvled, no wheezing Heart: Regular rhythm, reg rate, with no murmur Abdomen: soft, non-tender, non-distended, normoactive bowel sounds Ext: Significant edema and some erythema of bilat hands- dorsum and palmes, no scaling, R ankle dressed postop Skin: maculopapular rash on abdomen and lateral breasts -spares limbs and back at this time (extending to flanks (barely around back) - Pictures 08/29- evaluated on 08/30 and appears similar Lines: PICC no erythema Lab Review Hematology Recent Labs 08/28/17 0304 08/29/17 0430 08/30/17 0350 WBC 11.4* 8.7 9.2 HGB 10.9* 10.1* 10.6* HCT 33.0* 28.8* 32.2* PLTCT 384 333 414* Chemistry Recent Labs 08/28/17 0304 08/29/17 0430 08/30/17 0350 NA 135* 135* 135* K 3.9 3.5 3.4* CL 103 101 99 CO2 23 27 25 BUN 28* 38* 44* CR 3.28* 2.98* 2.62* GFR 14* 16* 18* GLU 125* 120* 121* CA 9.1 8.8 9.1 Microbiology, Radiology and other Diagnostics Review Microbiology data reviewed. Pertinent radiology images viewed. CXR 08/28 with bl pulm edema Tamiko Vargas MD Pager [phone] Infectious Diseases Faculty * Yamini Slaughter RN - 08/30/2017 3:44 PM CDT Patient Problem called about: (document change in assessment or concern): Patient feeling like her "fluid is coming back" on her lungs. Respiratory rate 29, 96% on RA, lungs clear to auscultation. Time MD/BURNING SUPERVISOR Notified: [id number] MD/BURNING SUPERVISOR Name: Dr. Martín PISANO/BURNING SUPERVISOR Response: Okay to give dose of 40mg IV lasix at this time, hold 1700 PO dose. Interventions: 40mg IV lasix dose given. * Ronnie Resendiz MD - 08/30/2017 1:33 PM CDT Formatting of this note may be different from the original. General Progress Note Admission Date: 08/22/2017 LOS: 8 days Assessment/Plan: Active Problems: Wound infection 72 y.o. 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 Shortness of breath- I reviewed chest X-ray : no pulmonary edema however respiratory status is improved with lasix and chest X-ray done after lasix -improving with Lasix, Plan >PO Lasix 40mg bid May give more IV lasix if needed ONI- improving -: ATN in setting of NSAID & ACEI vs. 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 MSSA hardware infection of R ankle -s/p I&D on 08/26 -ID following: Ancef 2g IV q 8 hrs & rifampin 300mg po bid --> Ancef changed to daptomycin 08/28 due to rash likely caused by Ancef Plan >per ID: tentatively 6 weeks of IV antibiotic therapy followed by 3 months po ( rifampin + doxy) >continue daptomycin 475 mg q 48hrs & rifampin 300 mg bid, may consider stopping rifampin if rash progresses Hypokalemia replace kcl 40 meq po Disposition senior living facility Please have SW check with senior living facility if the patient can be discharged on Daptomycin as it is expensive and some SNF may not accept the patient on this medication FEN: No IVF, Reg diet, lytes prn PPX: SCDs, chemoprophylaxis Ronnie Resendiz MD [id number] Subjective the patient felt increased shortness of breath , she was tachy penia and chest X -ray ordered , ortho ordered IV lasix and pos lasix dose were held the patient had increased hands and leg edema , shortness of breath improved after lasix dose . the patient rash is less itchy , no change of rash spread . Medications Scheduled Meds: amLODIPine (NORVASC) tablet 10 mg 10 mg Oral QDAY aspirin tablet 325 mg 325 mg Oral QDAY atorvastatin (LIPITOR) tablet 20 mg 20 mg Oral QDAY cloNIDine (CATAPRESS) tablet 0.1 mg 0.1 mg Oral BID cyclosporine (RESTASIS) 0.05 % ophthalmic emulsion 1 drop 1 drop Both Eyes BID DAPTOmycin (CUBICIN) injection 475 mg 6 mg/kg Intravenous Q48H* docusate (COLACE) capsule 100 mg 100 mg Oral BID(9-) furosemide (LASIX) tablet 40 mg 40 mg Oral BID(9-17) hydrocortisone 2.5 % topical cream Topical BID lactobacillus rhamnosus GG (CULTURELLE) 15 billion cell capsule 1 capsule 1 capsule Oral BID w/meals latanoprost (XALATAN) 0.005 % ophthalmic solution 1 drop 1 drop Both Eyes QHS milk of magnesia (CONC) oral suspension 10 mL 10 mL Oral QDAY() nebivolol (BYSTOLIC) tablet 10 mg 10 mg Oral BID polyethylene glycol 3350 (MIRALAX) packet 17 g 1 packet Oral QDAY rifAMPin (RIFADINE) capsule 300 mg 300 mg Oral BID senna (SENOKOT) tablet 1 tablet 1 tablet Oral BID timolol maleate (TIMOPTIC) 0.5 % ophthalmic drops 1 drop 1 drop Both Eyes QDAY Continuous Infusions: PRN and Respiratory Meds:ALPRAZolam TID PRN, bisacodyl QDAY PRN, diphenhydrAMINE Q6H PRN OR diphenhydrAMINE Q6H PRN, fentaNYL citrate PF Q1H PRN, hydrALAZINE Q6H PRN, HYDROcodone/acetaminophen Q3H PRN, ondansetron (ZOFRAN ) IV Q6H PRN, prochlorperazine Q6H PRN Objective Vital Signs: Last Filed Vital Signs: 24 Hour Range BP: 172/79 (08/30 1057) Temp: 36.8 C (98.3 F) (08/30 1057) Pulse: 78 (08/30 1057) Respirations: 19 PER MINUTE (08/30 1057) SpO2: 97 % (08/30 1057) O2 Delivery: None (Room Air) (08/30 1057) BP: (161-193)/(76-91) Temp: [36.2 C (97.2 F)-37.3 C (99.1 F)] Pulse: [78-95] Respirations: [14 PER MINUTE-32 PER MINUTE] SpO2: [95 %-100 %] O2 Delivery: None (Room Air) Intensity Pain Scale 0-10 (Pain 1): Asleep (08/30/17 1331) Vitals: 08/22/17 1041 Weight: 79.4 kg (175 lb) Intake/Output Summary: (Last 24 hours) Intake/Output Summary (Last 24 hours) at 08/30/17 1333 Last data filed at 08/30/17 1215 Gross per 24 hour Intake 0 ml Output 3210 ml Net -3210 ml Stool Occurrence: 1 Physical Exam General appearance: Alert, no acute distress Neck: Normal range of motion no JVD Lungs: Clear to auscultation bilaterally with diminished breath sounds, no wheezing, rhonchi or rales appreciated, normal work of breathing Heart: Regular rate and rhythm, no murmur Abdomen: Soft, not distended , normoactive bowel sounds, non-tender to palpation Ext: No edema, R lower extremity wrapped Skin: Erythematous rash present over abdomen, chest, upper thigh Lab Review CBC w/Diff Lab Results Component Value Date/Time WBC 9.2 08/30/2017 03:50 AM RBC 3.49 (L) 08/30/2017 03:50 AM HGB 10.6 (L) 08/30/2017 03:50 AM HCT 32.2 (L) 08/30/2017 03:50 AM MCV 92.2 08/30/2017 03:50 AM MCH 30.4 08/30/2017 03:50 AM MCHC 32.9 08/30/2017 03:50 AM RDW 13.6 08/30/2017 03:50 AM PLTCT 414 (H) 08/30/2017 03:50 AM MPV 7.2 08/30/2017 03:50 AM Lab Results Component Value Date/Time NEUT 76 08/30/2017 03:50 AM ANC 7.00 08/30/2017 03:50 AM LYMA 9 (L) 08/30/2017 03:50 AM ALC 0.80 (L) 08/30/2017 03:50 AM BENJAMIN 12 08/30/2017 03:50 AM AMC 1.10 (H) 08/30/2017 03:50 AM EOSA 3 08/30/2017 03:50 AM AEC 0.30 08/30/2017 03:50 AM BASA 0 08/30/2017 03:50 AM ABC 0.00 08/30/2017 03:50 AM Comprehensive Metabolic Profile Lab Results Component Value Date/Time NA 135 (L) 08/30/2017 03:50 AM K 3.4 (L) 08/30/2017 03:50 AM CL 99 08/30/2017 03:50 AM CO2 25 08/30/2017 03:50 AM GAP 11 08/30/2017 03:50 AM BUN 44 (H) 08/30/2017 03:50 AM CR 2.62 (H) 08/30/2017 03:50 AM GLU 121 (H) 08/30/2017 03:50 AM Lab Results Component Value Date/Time CA 9.1 08/30/2017 03:50 AM ALBUMIN 3.9 08/22/2017 11:15 AM TOTPROT 5.3 (L) 08/26/2017 04:00 AM ALKPHOS 72 08/22/2017 11:15 AM AST 16 08/22/2017 11:15 AM ALT 10 08/22/2017 11:15 AM TOTBILI 0.2 (L) 08/22/2017 11:15 AM GFR 18 (L) 08/30/2017 03:50 AM GFRAA 22 (L) 08/30/2017 03:50 AM Point of Care Testing (Last 24 hours) Glucose: (!) 121 Radiology and other Diagnostics Review: Reviewed Ronnie Resendiz MD * Dmitriy Fernández - 08/30/2017 10:28 AM CDT PHYSICAL THERAPY MOBILITY NOTE Patient was assigned for activity with the mobility aide by the supervising therapist. Patient inappropriate for mobility this date as pt is having trouble breathing via pt and nurse. Aide: Dmitriy Fernández Date: 08/30/2017 * Yamini Slaughter RN - 08/30/2017 10:[address] Garcia with medicine consult notified of RR and [address] order for chest x-ray and have respiratory therapy see patient. Dr. Resendiz will be by to see patient. * Yamini Slaughter RN - 08/30/2017 8:05 AM CDT Patient Problem called about: (document change in assessment or concern): Pt feeling RR 32bpm, 100% on 3L. Patient states she feels like she did when her first bout of pulmonary edema occurred. Refusing PO lasix and requesting IV lasix. Time MD/BURNING SUPERVISOR Notified: [id number] MD/BURNING SUPERVISOR Name: Dr. Blane PISANO/BURNING SUPERVISOR Response: If unable to get a hold of medicine team, okay to give patient 40mg IV lasix. Was unable get a hold of medicine team at this time. Order placed for IV lasix and administered to patient. * Dmitriy Arguelles MD - 08/30/2017 7:26 AM CDT Formatting of this note may be different from the original. Orthopedic Surgery Progress Note S: No acute events. Pain well-controlled. Patient tolerating current diet. Some SOB this AM. She is being closely monitored by multiple services. O: Blood pressure 174/78, pulse 95, temperature 36.9 C (98.4 F), height 167.6 cm (66"), weight 79.4 kg (175 lb), SpO2 96 %. Gen: A&O, NAD CV: Normal rate Pulm: Non-labored Abd: Soft, NT, ND Extremities: right lower extremity compartments compressible and no pain with passive stretch, TA/EHL/FHL/PT function intact, SILT, distal cap refill < 2 sec Incisions: Clean dry and intact. Complete Blood Counts Recent Labs 08/28/17 0304 08/29/17 0430 08/30/17 0350 HGB 10.9* 10.1* 10.6* HCT 33.0* 28.8* 32.2* WBC 11.4* 8.7 9.2 PLTCT 384 333 414* Chemistry Panel Recent Labs 08/28/17 0304 08/29/17 0430 08/30/17 0350 NA 135* 135* 135* K 3.9 3.5 3.4* CL 103 101 99 CO2 23 27 25 BUN 28* 38* 44* CR 3.28* 2.98* 2.62* GLU 125* 120* 121* CA 9.1 8.8 9.1 Coagulation Studies No results for input(s): PTT, INR in the last 72 hours. Problem List: Patient Active Problem List Diagnosis Date Noted Wound infection 08/22/2017 Ankle arthritis 07/01/2017 Arthritis of left foot 07/01/2017 Arthritis of foot 10/11/2015 A: Steff Azul is a 72 y.o. female s/p R TAA with post op infection s/p I &D 08/23, repeat I&D 08/26 with poly exchange. Hospital course included ONI pulmonary edema and a workup for MGUS. P: WB Status - NWB RLE ROM Status - As tolerated Antibiotics - Daptomycin, rif. ID following Pain Control - continue current pain regimen Diet - continue regular diet PT/OT - consulted DVT PPX - Mechanical, Chemoprophylaxis Patient is being followed by Heme, IM, ID, Nephrology for number of conditions developed or discovered in the hospital including ONI, pulmonary edema, and MGUS. -- Plan to discharge Friday [facility] 2259 * Natali Vargas, RN - 08/29/2017 3:28 PM CDT [place] catheter removed. Patient tolerated. Patient educated regarding need to void within 2 hours and need for post void bladder scan. 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 Today she looks so alert/happy and states that she is feeling much better - the "prayer is working" and thanked me for the visit. She is happily engaged with a friend when I came in the room. Gave her a thumbs up and told her we would continue to pray for her. Method(s) of Coping: Support System: Interventions/Plan: * Jackelin Bule, PT - 08/29/2017 1:45 PM CDT PHYSICAL THERAPY PROGRESS NOTE MOBILITY: Mobility Progressive Mobility Level: Walk in hallway Distance Walked (feet): 60 ft Level of Assistance: Assist X1 Assistive Device: Other (Comment) (knee scooter) Time Tolerated: 0-10 minutes Activity Limited By: Fatigue SUBJECTIVE: Subjective Significant hospital events: 72 y.o. F s/p I&D of R ankle following TAA 07/18/17. Mental / Cognitive Status: Alert;Oriented;Cooperative;Follows Commands Pain: Patient has no complaint of pain Pain Interventions: Patient agrees to participate in therapy R LE Precautions: RLE Non-Weight Bearing Comments: Patient up in recliner BED MOBILITY/TRANSFERS: Bed Mobility/Transfers Transfer Type: Sit to/from Stand Transfer: Assistance Level: To/From;Bed Side Chair;Minimal Assist Transfer: Assistive Device: Knee Scooter Transfers: Type Of Assistance: Verbal Cues;For Balance;For Safety Considerations End Of Activity Status: Up in Chair GAIT: Gait Gait Distance: 60 feet Gait: Assistance Level: Minimal Assist Gait: Assistive Device: Knee Scooter Gait: Descriptors: No balance loss Activity Limited By: Complaint of Fatigue;Weakness;Patient Choice Comments: After trialing knee scooter, patient prefers her 4WW EDUCATION: Education Persons Educated: Patient Patient Barriers To Learning: None Noted Teaching Methods: Verbal Instruction Patient Response: Verbalized Understanding;Return Demonstration Topics: Use of Assistive Device/Orthosis;Mobility Progression;Precautions; Therapy Schedule ASSESSMENT/PROGRESS: Assessment/Progress Impaired Mobility Due To: Weight Bearing Restrictions;Post Surgical Precautions; Decreased Activity Tolerance Assessment/Progress: Should Improve w/ Continued PT AM-PAC 6 Clicks Basic Mobility Inpatient Turning from your back to your side while in a flat bed without using bed rails : None Moving from lying on your back to sitting on the side of a flatbed without using bedrails : None Moving to and from a bed to a chair (including a wheelchair): A Little Standing up from a chair using your arms (e.g. wheelchair, or bedside chair): A Little To walk in hospital room: A Lot Climbing 3-5 steps with a railing: Total Raw Score: 17 Standardized (T-scale) Score: 39.67 Basic Mobility CMS 0-100%: 43.83 CMS G Code Modifier for Basic Mobility: CK GOALS: Goals Goal Formulation: With Patient Time For Goal Achievement: 5 days Pt Will Transfer Bed/Chair: w/ Stand By Assist Pt Will Ambulate: 31-50 Feet, w/ Walker, w/ Stand By Assist PLAN: Plan Treatment Interventions: Mobility Training Plan Frequency: 5 Days per Week PT Plan for Next Visit: Progress mobility with 4WW as knee scooter. P.T. mobility aide to assist with ongoing mobilization and exercise per instructions of licensed physical therapy staff. RECOMMENDATIONS: PT Discharge Recommendations PT Discharge Recommendations: Inpatient Setting Therapist: Jackelin Blue, PT Date: 08/29/2017 * Karina August, DO - 08/29/2017 11:25 AM CDT Formatting of this note may be different from the original. Infectious Diseases Progress Note Today's Date: 08/29/2017 Admission Date: 08/22/2017 Reason for this consultation: Total ankle replacement 07/18. Now w/post op infection. Assessment: MSSA Hardware infx complicating surg wound infection on R ankle 5 wks out R total ankle arthroplasty with shin Prophecy implant, gastroc resection, revision of talonavicular joint arthrodesis w/autogenous bone graft + infuse after removal of the prior deep implant Wound erythema, drainage around 08/20 from sinus tract R medial ankle along incision; swab GS: staph - cult MSSA OR 08/26 for poly exchange, GS neg, tissue cult 1 colony MSSA ONI with kappa protein spike In setting of vanc w/inc level HTN OA Drug rash 08/28 - most likely culprit cefazolin but possibly rifampin Acute hypoxic resp failure with R>L basilar infil - suspect edema Recommendations: 1. We stopped ancef yesterday as seems most likely culprit for drug rash - on dapto 6 mg/kg/day (renal dosed); rash + oni could indicated AIN but no fever or eosinophilia 2. Cont rifampin for today - if rash progresses would stop this 3. FU april surgical cultures 4. Monitor cbc/diff, cmp for antibiotic toxicity 5. Resp failure improved with diuresis, off o2 today 6. Tentatively 6 weeks of IV antibiotic therapy followed by 3 mo po; CM to help set up RN and home infusion 7. FU heme c/s and rec studies will follow Complexity of medical decision making is high due to the multi-system nature of the infectious disease process or potential for limb-threatening infection as well as concerns including but not limited to complexity of the patient's underlying illnesses, the identification and sensitivities of the organisms being treated, the potential for antimicrobial toxicities which are being monitored by complete blood counts and chemistry analysis between visits and the potential for drug-drug interactions, as well as concerns regarding immunologic function, and interplay of other issues. History of Present Illness Steff Azul is a 72 y.o. Female with h/o osteoporosis here w/postop ankle infection. Afeb, new hypoxia/sob yesterday sig improved w/diuresis No f/c/s No cough or CP - sob much improved No n/v -getting appetite back Pain in ankle, appropriate Rash still pruritic - has not spread Antimicrobial Start date End date vanc 08/22 08/25 zosyn 08/22 08/25 ancef 08/26 08/28 rif 08/26 dapto 08/28 Estimated Creatinine Clearance: 18.7 mL/min (A) (based on SCr of 2.98 mg/dL (H)) . Medications Scheduled Meds: amLODIPine (NORVASC) tablet 10 mg 10 mg Oral QDAY aspirin tablet 325 mg 325 mg Oral QDAY atorvastatin (LIPITOR) tablet 20 mg 20 mg Oral QDAY cloNIDine (CATAPRESS) tablet 0.1 mg 0.1 mg Oral BID cyclosporine (RESTASIS) 0.05 % ophthalmic emulsion 1 drop 1 drop Both Eyes BID DAPTOmycin (CUBICIN) injection 475 mg 6 mg/kg Intravenous Q48H* docusate (COLACE) capsule 100 mg 100 mg Oral BID(-) furosemide (LASIX) injection 40 mg 40 mg Intravenous Q8H* hydrocortisone 2.5 % topical cream Topical BID lactobacillus rhamnosus GG (CULTURELLE) 15 billion cell capsule 1 capsule 1 capsule Oral BID w/meals latanoprost (XALATAN) 0.005 % ophthalmic solution 1 drop 1 drop Both Eyes QHS milk of magnesia (CONC) oral suspension 10 mL 10 mL Oral QDAY(21) nebivolol (BYSTOLIC) tablet 10 mg 10 mg Oral BID polyethylene glycol 3350 (MIRALAX) packet 17 g 1 packet Oral QDAY rifAMPin (RIFADINE) capsule 300 mg 300 mg Oral BID senna (SENOKOT) tablet 1 tablet 1 tablet Oral BID timolol maleate (TIMOPTIC) 0.5 % ophthalmic drops 1 drop 1 drop Both Eyes QDAY Continuous Infusions: PRN and Respiratory Meds:ALPRAZolam TID PRN, bisacodyl QDAY PRN, diphenhydrAMINE Q6H PRN OR diphenhydrAMINE Q6H PRN, fentaNYL citrate PF Q1H PRN, hydrALAZINE Q6H PRN, HYDROcodone/acetaminophen Q3H PRN, ondansetron (ZOFRAN ) IV Q6H PRN, prochlorperazine Q6H PRN Physical Examination Vital Signs: Last Vital Signs: 24 Hour Range BP: 181/85 (08/29 929) Temp: 36.6 C (97.8 F) (08/29 929) Pulse: 96 (08/29 929) Respirations: 16 PER MINUTE (08/29 634) SpO2: 99 % (08/29 929) O2 Delivery: Nasal Cannula (08/29 929) BP: (165-189)/(69-92) Temp: [36.6 C (97.8 F)-37.1 C (98.7 F)] Pulse: [75-97] Respirations: [16 PER MINUTE-18 PER MINUTE] SpO2: [94 %-100 %] O2 Delivery: Nasal Cannula General appearance: alert, oriented, NAD HENT: no thrush Lungs: bibasilar rales near resolvled, no wheezing Heart: Regular rhythm, reg rate, with no murmur Abdomen: soft, non-tender, non-distended, normoactive bowel sounds Ext: No clubbing, cyanosis or edema - R ankle dressed postop Skin: maculopapular rash on abdomen and lateral breasts -spares limbs and back at this time (extending to flanks (barely around back) - darker today but no spread Lines: PICC no erythema Lab Review Hematology Recent Labs 08/27/17 0343 08/28/17 0304 08/29/17 0430 WBC 8.4 11.4* 8.7 HGB 10.6* 10.9* 10.1* HCT 31.7* 33.0* 28.8* PLTCT 288 384 333 Chemistry Recent Labs 08/27/17 0343 08/28/17 0304 08/29/17 0430 NA 136* 135* 135* K 4.3 3.9 3.5 CL 106 103 101 CO2 21 23 27 BUN 25 28* 38* CR 3.20* 3.28* 2.98* GFR 14* 14* 16* GLU 113* 125* 120* CA 8.8 9.1 8.8 Microbiology, Radiology and other Diagnostics Review Microbiology data reviewed. Pertinent radiology images viewed. CXR 08/28 with bl pulm edema Karina August DO Pager [phone] Infectious Diseases Faculty * Glo Vidal MD - 08/29/2017 10:35 AM CDT Formatting of this note may be different from the original. General Progress Note Admission Date: 08/22/2017 LOS: 7 days Assessment/Plan: ONI--DDx incl med tox (NSAID, ACEI) vs AIN. UO brisk yest, and Cr better today c /w yest. --will need to see steady improvement in Cr for at least a couple of days --renal function will have to be followed closely as outpt, eg every few/sev days to ensure steady recovery --will need to demonstrate that she can adequately empty bladder before DC SOB--DDx incl pulm edema vs inf vs PE. She may well have more than one process. I think she is at least vol overloaded. ID not highly suspicious for pneumonia. --would switch to Lasix 40 po BID today, follow sxs, UO, sats closely --daily standing wts Paraproteinemia/-uria--heme is following. No lytic lesions on skeletal survey. --will likely need heme/onc f/u as outpt --alternatively, PMD can follow periodic SPEP/PARMJIT, FLC, UPEP/PARMJIT Anemia--d/t inf vs BM process. Suspect former. Rash--suspect drug rash from antibx. Pt states she has never taken ceph before this adm. Possible dx/px/tx options d/w pt at length; all questions answered. Active Problems: Wound infection Subjective Steff Ivis Azul is a 72 y.o. female. Patient states sob much better today. No orth, n/vom. Real better--marizol bf today. Feels that UE swollen, tight. States she was on lasix 40 po/d NECKTIE STITCHER. Usual wt 175 lbs. Received 2 doses IV lasix 40 yest, 2 this am. UO--5900 yest Cr-3.0 this am c/w 3.3 yest am Medications Scheduled Meds: amLODIPine (NORVASC) tablet 10 mg 10 mg Oral QDAY aspirin tablet 325 mg 325 mg Oral QDAY atorvastatin (LIPITOR) tablet 20 mg 20 mg Oral QDAY cloNIDine (CATAPRESS) tablet 0.1 mg 0.1 mg Oral BID cyclosporine (RESTASIS) 0.05 % ophthalmic emulsion 1 drop 1 drop Both Eyes BID DAPTOmycin (CUBICIN) injection 475 mg 6 mg/kg Intravenous Q48H* docusate (COLACE) capsule 100 mg 100 mg Oral BID(9-17) furosemide (LASIX) injection 40 mg 40 mg Intravenous Q8H* hydrocortisone 2.5 % topical cream Topical BID lactobacillus rhamnosus GG (CULTURELLE) 15 billion cell capsule 1 capsule 1 capsule Oral BID w/meals latanoprost (XALATAN) 0.005 % ophthalmic solution 1 drop 1 drop Both Eyes QHS milk of magnesia (CONC) oral suspension 10 mL 10 mL Oral QDAY(21) nebivolol (BYSTOLIC) tablet 10 mg 10 mg Oral BID polyethylene glycol 3350 (MIRALAX) packet 17 g 1 packet Oral QDAY rifAMPin (RIFADINE) capsule 300 mg 300 mg Oral BID senna (SENOKOT) tablet 1 tablet 1 tablet Oral BID timolol maleate (TIMOPTIC) 0.5 % ophthalmic drops 1 drop 1 drop Both Eyes QDAY Continuous Infusions: PRN and Respiratory Meds:ALPRAZolam TID PRN, bisacodyl QDAY PRN, diphenhydrAMINE Q6H PRN OR diphenhydrAMINE Q6H PRN, fentaNYL citrate PF Q1H PRN, hydrALAZINE Q6H PRN, HYDROcodone/acetaminophen Q3H PRN, ondansetron (ZOFRAN ) IV Q6H PRN, prochlorperazine Q6H PRN Objective Vital Signs: Last Filed Vital Signs: 24 Hour Range BP: 181/85 (08/29 929) Temp: 36.6 C (97.8 F) (08/29 929) Pulse: 96 (08/29 929) Respirations: 16 PER MINUTE (08/29 06) SpO2: 99 % (08/29 929) O2 Delivery: Nasal Cannula (08/29 929) BP: (165-189)/(69-92) Temp: [36.6 C (97.8 F)-37.1 C (98.7 F)] Pulse: [75-97] Respirations: [16 PER MINUTE-18 PER MINUTE] SpO2: [94 %-100 %] O2 Delivery: Nasal Cannula Vitals: 08/22/17 1041 Weight: 79.4 kg (175 lb) Intake/Output Summary: (Last 24 hours) Intake/Output Summary (Last 24 hours) at 08/29/17 1035 Last data filed at 08/29/17 1027 Gross per 24 hour Intake 1980 ml Output 5946 ml Net -3966 ml Stool Occurrence: 1 Physical Exam Alert, nad Nc/at Oral mucosa dry anict TMM RRR No crackles abd s, nt No LE or UE edema No dep edema Moves all extrem Answers questions approrpiately Macular erythematous rash on trunk Lab Review Results for orders placed or performed during the hospital encounter of (from the past 24 hour(s)) BASIC METABOLIC PANEL Collection Time: 08/29/17 4:30 AM # # Low-High Sodium 135 (L) 137 - 147 MMOL/L Potassium 3.5 3.5 - 5.1 MMOL/L Chloride 101 98 - 110 MMOL/L CO2 27 21 - 30 MMOL/L Anion Gap 7 3 - 12 Glucose 120 (H) 70 - 100 MG/DL Blood Urea Nitrogen 38 (H) 7 - 25 MG/DL Creatinine 2.98 (H) 0.4 - 1.00 MG/DL Calcium 8.8 8.5 - 10.6 MG/DL eGFR Non 16 (L) >60 mL/min eGFR 19 (L) >60 mL/min CBC AND DIFF Collection Time: 08/29/17 4:30 AM # # Low-High White Blood Cells 8.7 4.5 - 11.0 K/UL RBC 3.23 (L) 4.0 - 5.0 M/UL Hemoglobin 10.1 (L) 12.0 - 15.0 GM/DL Hematocrit 28.8 (L) 36 - 45 % MCV 89.2 80 - 100 FL MCH 31.2 26 - 34 PG MCHC 34.9 32.0 - 36.0 G/DL RDW 13.3 11 - 15 % Platelet Count 333 150 - 400 K/UL MPV 7.1 7 - 11 FL Neutrophils 78 (H) 41 - 77 % Lymphocytes 6 (L) 24 - 44 % Monocytes 12 4 - 12 % Eosinophils 3 0 - 5 % Basophils 1 0 - 2 % Absolute Neutrophil Count 6.80 1.8 - 7.0 K/UL Absolute Lymph Count 0.50 (L) 1.0 - 4.8 K/UL Absolute Monocyte Count 1.10 (H) 0 - 0.80 K/UL Absolute Eosinophil Count 0.20 0 - 0.45 K/UL Absolute Basophil Count 0.10 0 - 0.20 K/UL N/A Point of Care Testing (Last 24 hours) Glucose: (!) 120 (08/29/17 0430) * Yanira Weiss MD - 08/29/2017 9:53 AM CDT Formatting of this note may be different from the original. General Progress Note Admission Date: 08/22/2017 LOS: 7 days Assessment/Plan: Active Problems: Wound infection 72 y.o. 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 ONI- improving -differential includes: ATN in setting of NSAID & ACEI with some degree of volume contraction vs. 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, clonidine 0.1mg bid, nebivolol 10mg bid, lisinopril 40mg daily -prn hydralazine while inpatient -lisinopril being held in setting of ONI Plan >continue amlodipine, clonidine, nebivolol as well as prn hydralazine for SBP > 180mmHg Monoclonal M-spike on SPEP -likely MGUS in the setting of no lytic lesions on skeletal survey -discovered during workup of ONI -skeletal survey: no evidence of lytic lesions Plan >per hematology: bone marrow biopsy will be considered based on results of pending UPEP & serum immunofixation MSSA hardware infection of R ankle -s/p I&D on 08/26 -ID following: Ancef 2g IV q 8 hrs & rifampin 300mg po bid --> Ancef changed to daptomycin 08/28 due to rash likely caused by Ancef Plan >per ID: tentatively 6 weeks of IV antibiotic therapy followed by 3 months po ( rifampin + doxy) >continue daptomycin 475 mg q 48hrs & rifampin 300 mg bid, may consider stopping rifampin if rash progresses FEN: No IVF, Reg diet, lytes prn PPX: SCDs, chemoprophylaxis Dispo: Full Code YANIRA WEISS MD [id number] Subjective Patient is feeling better this morning. Breathing has improved. Abdomen feels slightly less distended. High urine output yesterday. Appetite improving. Denies nausea or abdominal pain. Rash on abdomen, chest, upper thighs is still present- slightly less red but still itchy. Medications Scheduled Meds: amLODIPine (NORVASC) tablet 10 mg 10 mg Oral QDAY aspirin tablet 325 mg 325 mg Oral QDAY atorvastatin (LIPITOR) tablet 20 mg 20 mg Oral QDAY cloNIDine (CATAPRESS) tablet 0.1 mg 0.1 mg Oral BID cyclosporine (RESTASIS) 0.05 % ophthalmic emulsion 1 drop 1 drop Both Eyes BID DAPTOmycin (CUBICIN) injection 475 mg 6 mg/kg Intravenous Q48H* docusate (COLACE) capsule 100 mg 100 mg Oral BID(9-17) furosemide (LASIX) tablet 40 mg 40 mg Oral BID(-17) hydrocortisone 2.5 % topical cream Topical BID lactobacillus rhamnosus GG (CULTURELLE) 15 billion cell capsule 1 capsule 1 capsule Oral BID w/meals latanoprost (XALATAN) 0.005 % ophthalmic solution 1 drop 1 drop Both Eyes QHS milk of magnesia (CONC) oral suspension 10 mL 10 mL Oral QDAY(21) nebivolol (BYSTOLIC) tablet 10 mg 10 mg Oral BID polyethylene glycol 3350 (MIRALAX) packet 17 g 1 packet Oral QDAY rifAMPin (RIFADINE) capsule 300 mg 300 mg Oral BID senna (SENOKOT) tablet 1 tablet 1 tablet Oral BID timolol maleate (TIMOPTIC) 0.5 % ophthalmic drops 1 drop 1 drop Both Eyes QDAY Continuous Infusions: PRN and Respiratory Meds:ALPRAZolam TID PRN, bisacodyl QDAY PRN, diphenhydrAMINE Q6H PRN OR diphenhydrAMINE Q6H PRN, fentaNYL citrate PF Q1H PRN, hydrALAZINE Q6H PRN, HYDROcodone/acetaminophen Q3H PRN, ondansetron (ZOFRAN ) IV Q6H PRN, prochlorperazine Q6H PRN Objective Vital Signs: Last Filed Vital Signs: 24 Hour Range BP: 174/83 (08/29 145) Temp: 36.4 C (97.6 F) (08/29 145) Pulse: 90 (08/29 145) Respirations: 14 PER MINUTE (08/29 145) SpO2: 97 % (08/29 145) O2 Delivery: None (Room Air) (08/29 1454) BP: (165-186)/(69-92) Temp: [36.4 C (97.6 F)-37.1 C (98.7 F)] Pulse: [79-97] Respirations: [14 PER MINUTE-18 PER MINUTE] SpO2: [94 %-100 %] O2 Delivery: None (Room Air) Intensity Pain Scale 0-10 (Pain 1): 3 (08/29/17 1000) Vitals: 08/22/17 1041 Weight: 79.4 kg (175 lb) Intake/Output Summary: (Last 24 hours) Intake/Output Summary (Last 24 hours) at 08/29/17 1500 Last data filed at 08/29/17 1457 Gross per 24 hour Intake 1430 ml Output 5746 ml Net -4316 ml Stool Occurrence: 1 Physical Exam General appearance: Alert, no acute distress HENT: Mucus membranes moist, Eyes: PERRL, EOM grossly intact, conjunctiva normal Neck: Normal range of motion Lungs: Clear to auscultation bilaterally with diminished breath sounds, no wheezing, rhonchi or rales appreciated, normal work of breathing Heart: Regular rate and rhythm, no murmur Abdomen: Soft, distended, normoactive bowel sounds, non-tender to palpation Ext: No edema, R lower extremity wrapped Skin: Erythematous rash present over abdomen, chest, upper thigh Lab Review CBC w/Diff Lab Results Component Value Date/Time WBC 8.7 08/29/2017 04:30 AM RBC 3.23 (L) 08/29/2017 04:30 AM HGB 10.1 (L) 08/29/2017 04:30 AM HCT 28.8 (L) 08/29/2017 04:30 AM MCV 89.2 08/29/2017 04:30 AM MCH 31.2 08/29/2017 04:30 AM MCHC 34.9 08/29/2017 04:30 AM RDW 13.3 08/29/2017 04:30 AM PLTCT 333 08/29/2017 04:30 AM MPV 7.1 08/29/2017 04:30 AM Lab Results Component Value Date/Time NEUT 78 (H) 08/29/2017 04:30 AM ANC 6.80 08/29/2017 04:30 AM LYMA 6 (L) 08/29/2017 04:30 AM ALC 0.50 (L) 08/29/2017 04:30 AM BENJAMIN 12 08/29/2017 04:30 AM AMC 1.10 (H) 08/29/2017 04:30 AM EOSA 3 08/29/2017 04:30 AM AEC 0.20 08/29/2017 04:30 AM BASA 1 08/29/2017 04:30 AM ABC 0.10 08/29/2017 04:30 AM Comprehensive Metabolic Profile Lab Results Component Value Date/Time NA 135 (L) 08/29/2017 04:30 AM K 3.5 08/29/2017 04:30 AM CL 101 08/29/2017 04:30 AM CO2 27 08/29/2017 04:30 AM GAP 7 08/29/2017 04:30 AM BUN 38 (H) 08/29/2017 04:30 AM CR 2.98 (H) 08/29/2017 04:30 AM GLU 120 (H) 08/29/2017 04:30 AM Lab Results Component Value Date/Time CA 8.8 08/29/2017 04:30 AM ALBUMIN 3.9 08/22/2017 11:15 AM TOTPROT 5.3 (L) 08/26/2017 04:00 AM ALKPHOS 72 08/22/2017 11:15 AM AST 16 08/22/2017 11:15 AM ALT 10 08/22/2017 11:15 AM TOTBILI 0.2 (L) 08/22/2017 11:15 AM GFR 16 (L) 08/29/2017 04:30 AM GFRAA 19 (L) 08/29/2017 04:30 AM Point of Care Testing (Last 24 hours) Glucose: (!) 120 Radiology and other Diagnostics Review: Reviewed YANIRA WEISS MD Associated attestation - Rafa Jama DO - 08/29/2017 3:10 PM CDT Formatting of this note may be different from the original. ATTESTATION I personally performed the roberson portions of the E/M visit, discussed case with the Consult team and I concur with the resident's documentation of history, physical exam, assessment, and treatment plan unless otherwise noted in blue italics. Carlos Jama, Date: 08/29/2017 Internal Medicine, Hospitalist [phone] * Franklin Nur MD - 08/29/2017 7:29 AM CDT Formatting of this note may be different from the original. Orthopedic Surgery Progress Note S: No acute events. Pain well-controlled. Patient tolerating current diet. Patient's rash has improved, reports feeling better and is happy with her care. She is breathing better on her own and has been getting up and in her chair. She is being closely monitored by multiple services. O: Blood pressure 171/69, pulse 97, temperature 37.1 C (98.7 F), height 167.6 cm (66"), weight 79.4 kg (175 lb), SpO2 97 %. Gen: A&O, NAD CV: Normal rate Pulm: Non-labored Abd: Soft, NT, ND Extremities: right lower extremity compartments compressible and no pain with passive stretch, TA/EHL/FHL/PT function intact, SILT, distal cap refill < 2 sec Incisions: Clean dry and intact. Complete Blood Counts Recent Labs 08/27/17 0343 08/28/17 0304 08/29/17 0430 HGB 10.6* 10.9* 10.1* HCT 31.7* 33.0* 28.8* WBC 8.4 11.4* 8.7 PLTCT 288 384 333 Chemistry Panel Recent Labs 08/27/17 0343 08/28/17 0304 08/29/17 0430 NA 136* 135* 135* K 4.3 3.9 3.5 CL 106 103 101 CO2 21 23 27 BUN 25 28* 38* CR 3.20* 3.28* 2.98* GLU 113* 125* 120* CA 8.8 9.1 8.8 Coagulation Studies No results for input(s): PTT, INR in the last 72 hours. Radiology - CXR - no interstitial infiltrates and clear lung clark. Skeletal Survey - revealed no lytic lesions Problem List: Patient Active Problem List Diagnosis Date Noted Wound infection 08/22/2017 Ankle arthritis 07/01/2017 Arthritis of left foot 07/01/2017 Arthritis of foot 10/11/2015 A: Stfef Azul is a 72 y.o. female s/p R TAA with post op infection s/p I &D 08/23, repeat I&D 08/26 with poly exchange. Hospital course included ONI pulmonary edema and a workup for MGUS. P: WB Status - NWB RLE ROM Status - As tolerated Antibiotics - Daptomycin, ID following Pain Control - continue current pain regimen Diet - continue regular diet PT/OT - consulted DVT PPX - Mechanical, Chemoprophylaxis Patient is being followed by Heme, IM, ID, Nephrology for number of conditions developed or discovered in the hospital including ONI, pulmonary edema, and MGUS. -- Plan to discharge this or Friday pending clearance and discussion with consulted services. Franklin Nur MD Pager [phone] * Tyesha Fitzgerald DO - 08/28/2017 5:21 PM CDT Formatting of this note may be different from the original. General Progress Note Name: Steff Azul Today's Date: 08/28/2017 Admission Date: 08/22/2017 LOS: 6 days Assessment/Plan: Active Problems: Wound infection Assessment/Plan Steff Azul is a 72 y.o. female with pmh osteoporosis, osteoarthritis, and HTN who presented with a post-op MSSA infection of ankle. 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 Immunofixation, globulin levels, and UPEP are pending. In the setting of acute infection and acute kidney injury, unclear significance of slightly elevated kappa:lambda ratio. It is unlikely that patient's renal dysfunction is caused by a cast nephropathy. Skeletal survey is negative for lytic lesions. Will await results of UPEP and immunofixation. Assessment: 1. 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 ONI 3. Post-op MSSA infection 4. Osteoporosis Plan: - Wait for results of UPEP and immunofixation. - Continue supportive care Thank you for this consult. We will continue to follow. Patient seen and discussed with Dr. Abarca. Tyesha Fitzgerald, DO PGY-2 Pager [phone] Subjective Steff Azul is a 72 y.o. female. Patient reports feeling much better today. She feels less short of breath and is excited to work with physical therapy. Medications Scheduled Meds: amLODIPine (NORVASC) tablet 10 mg 10 mg Oral QDAY aspirin tablet 325 mg 325 mg Oral QDAY atorvastatin (LIPITOR) tablet 20 mg 20 mg Oral QDAY cloNIDine (CATAPRESS) tablet 0.1 mg 0.1 mg Oral BID cyclosporine (RESTASIS) 0.05 % ophthalmic emulsion 1 drop 1 drop Both Eyes BID DAPTOmycin (CUBICIN) injection 475 mg 6 mg/kg Intravenous Q48H* docusate (COLACE) capsule 100 mg 100 mg Oral BID(9-17) furosemide (LASIX) injection 40 mg 40 mg Intravenous Q8H* FUROSEMIDE 10 MG/ML IJ SOLN (Cabinet Override) NOW hydrocortisone 2.5 % topical cream Topical BID lactobacillus rhamnosus GG (CULTURELLE) 15 billion cell capsule 1 capsule 1 capsule Oral BID w/meals latanoprost (XALATAN) 0.005 % ophthalmic solution 1 drop 1 drop Both Eyes QHS milk of magnesia (CONC) oral suspension 10 mL 10 mL Oral QDAY(21) nebivolol (BYSTOLIC) tablet 10 mg 10 mg Oral BID polyethylene glycol 3350 (MIRALAX) packet 17 g 1 packet Oral QDAY rifAMPin (RIFADINE) capsule 300 mg 300 mg Oral BID senna (SENOKOT) tablet 1 tablet 1 tablet Oral BID timolol maleate (TIMOPTIC) 0.5 % ophthalmic drops 1 drop 1 drop Both Eyes QDAY Continuous Infusions: PRN and Respiratory Meds:ALPRAZolam TID PRN, bisacodyl QDAY PRN, diphenhydrAMINE Q6H PRN OR diphenhydrAMINE Q6H PRN, fentaNYL citrate PF Q1H PRN, hydrALAZINE Q6H PRN, HYDROcodone/acetaminophen Q3H PRN, ondansetron (ZOFRAN ) IV Q6H PRN, prochlorperazine Q6H PRN Review of Systems: A 14 point review of systems was negative except for: Respiratory: positive for dyspnea on exertion Objective: Vital Signs: Last Filed Vital Signs: 24 Hour Range BP: 189/82 (08/28 1348) Temp: 36.6 C (97.8 F) (08/28 1348) Pulse: 75 (08/28 1348) Respirations: 18 PER MINUTE (08/28 1348) SpO2: 99 % (08/28 1348) O2 Delivery: Nasal Cannula (08/28 1348) BP: (152-202)/(74-99) Temp: [36.4 C (97.5 F)-36.8 C (98.3 F)] Pulse: [74-83] Respirations: [18 PER MINUTE-26 PER MINUTE] SpO2: [96 %-99 %] O2 Delivery: Nasal Cannula Intensity Pain Scale 0-10 (Pain 1): 2 (08/28/17 0754) Vitals: 08/22/17 1041 Weight: 79.4 kg (175 lb) Intake/Output Summary: (Last 24 hours) Intake/Output Summary (Last 24 hours) at 08/28/17 1722 Last data filed at 08/28/17 1500 Gross per 24 hour Intake 2260 ml Output 4100 ml Net -1840 ml Stool Occurrence: 1 Physical Exam General: Alert, cooperative, no distress, appears stated age Head: Normocephalic, without obvious abnormality, atraumatic Neck: Supple, symmetrical, trachea midline, no adenopathy Lungs: Clear to auscultation bilaterally Heart: Regular rate and rhythm, S1, S2 normal, no murmur, click rub or gallop Abdomen: Soft, non-tender. Bowel sounds normal. No masses. No organomegaly. Extremities: Right lower extremity in HANDY and wrapping c/d/i. Lab Review 24-hour labs: Results for orders placed or performed during the hospital encounter of (from the past 24 hour(s)) CBC Collection Time: 08/28/17 3:04 AM Result Value Ref Range White Blood Cells 11.4 (H) 4.5 - 11.0 K/UL RBC 3.60 (L) 4.0 - 5.0 M/UL Hemoglobin 10.9 (L) 12.0 - 15.0 GM/DL Hematocrit 33.0 (L) 36 - 45 % MCV 91.7 80 - 100 FL MCH 30.2 26 - 34 PG MCHC 33.0 32.0 - 36.0 G/DL RDW 13.2 11 - 15 % Platelet Count 384 150 - 400 K/UL MPV 7.5 7 - 11 FL BASIC METABOLIC PANEL Collection Time: 08/28/17 3:04 AM Result Value Ref Range Sodium 135 (L) 137 - 147 MMOL/L Potassium 3.9 3.5 - 5.1 MMOL/L Chloride 103 98 - 110 MMOL/L CO2 23 21 - 30 MMOL/L Anion Gap 9 3 - 12 Glucose 125 (H) 70 - 100 MG/DL Blood Urea Nitrogen 28 (H) 7 - 25 MG/DL Creatinine 3.28 (H) 0.4 - 1.00 MG/DL Calcium 9.1 8.5 - 10.6 MG/DL eGFR Non 14 (L) >60 mL/min eGFR 17 (L) >60 mL/min CREATINE KINASE-CPK Collection Time: 08/28/17 3:04 AM Result Value Ref Range Creatine Kinase 34 21 - 215 U/L MANUAL DIFF Collection Time: 08/28/17 3:04 AM Result Value Ref Range Segmented Neutrophils 83 (H) 41 - 77 % Lymphocytes 6 (L) 24 - 44 % Monocytes 8 4 - 12 % Eosinophil 2 0 - 5 % Basophil 1 0 - 2 % Platelet Estimate NORMAL RBC Morph NORMAL Point of Care Testing (Last 24 hours) Glucose: (!) 125 (08/28/17 0304) Radiology and other Diagnostics Review: Pertinent radiology reviewed. Tyesha Fitzgerald DO Pager [phone] Associated attestation - Parviz Abarca MD - 08/29/2017 6:42 AM CDT I have seen, examined, discussed and participated in all medical decision making regarding Ms Azlu's care. I agree with Dr Fitzgerald's note with the following additions and/or exceptions: Awaiting results of urine protein electropheresis and serum immunofixation. Unlikely that her small monoclonal protein is significantly contributing to renal failure process. We will consider bone marrow depending on results of above. * Mona Aguirre, RN - 08/28/2017 5:[address] Madrid about new order of scheduled IV Lasix due to previously discussing not stating the medication. Dr. Madrid asked for the ordering provider to be paged and asked why the scheduled lasix was ordered. Paged #[phone]. * Jackelin Blue, PT - 08/28/2017 2:15 PM CDT PHYSICAL THERAPY PROGRESS NOTE MOBILITY: Mobility Progressive Mobility Level: Active transfer to chair Level of Assistance: Assist X1 Assistive Device: Walker Time Tolerated: 0-10 minutes SUBJECTIVE: Subjective Significant hospital events: 72 y.o. F s/p I&D of R ankle following TAA 07/18/17. Mental / Cognitive Status: Alert;Oriented;Cooperative;Follows Commands Pain: Patient has no complaint of pain Pain Interventions: Patient agrees to participate in therapy R LE Precautions: RLE Non-Weight Bearing 02 @ 3L- reports improved respiratory status this afternoon BED MOBILITY/TRANSFERS: Bed Mobility/Transfers Bed Mobility: Supine to Sit: Standby Assist;Head of Bed Elevated Transfer Type: Sit to Stand Transfer: Assistance Level: From;Bed;Minimal Assist Transfer: Assistive Device: 4-Wheeled Walker Transfers: Type Of Assistance: Verbal Cues;For Balance End Of Activity Status: Up in Chair;Nursing Notified;Instructed Patient to Request Assist with Mobility GAIT: Gait Gait Distance: (bed->chair only) Gait: Assistance Level: Minimal Assist Gait: Assistive Device: 4-Wheeled Walker Gait: Descriptors: (maintains NWB status) Activity Limited By: Patient Choice Comments: Patient not interested in ambulation with walker. She requests to trial knee scooter (has been using 4WW as knee scooter) EDUCATION: Education Persons Educated: Patient Patient Barriers To Learning: None Noted Teaching Methods: Verbal Instruction Patient Response: Verbalized Understanding;Return Demonstration Topics: Use of Assistive Device/Orthosis;Mobility Progression;Precautions; Therapy Schedule ASSESSMENT/PROGRESS: Assessment/Progress Impaired Mobility Due To: Weight Bearing Restrictions;Post Surgical Changes; Post Surgical Precautions;Decreased Activity Tolerance Assessment/Progress: Should Improve w/ Continued PT AM-PAC 6 Clicks Basic Mobility Inpatient Turning from your back to your side while in a flat bed without using bed rails : None Moving from lying on your back to sitting on the side of a flatbed without using bedrails : None Moving to and from a bed to a chair (including a wheelchair): A Little Standing up from a chair using your arms (e.g. wheelchair, or bedside chair): A Little To walk in hospital room: A Lot Climbing 3-5 steps with a railing: Total Raw Score: 17 Standardized (T-scale) Score: 39.67 Basic Mobility CMS 0-100%: 43.83 CMS G Code Modifier for Basic Mobility: CK GOALS: Goals Goal Formulation: With Patient Time For Goal Achievement: 5 days Pt Will Transfer Bed/Chair: w/ Stand By Assist Pt Will Ambulate: 31-50 Feet, w/ Walker, w/ Stand By Assist PLAN: Plan Treatment Interventions: Mobility Training Plan Frequency: 5 Days per Week PT Plan for Next Visit: Transfer training, trial knee scooter per patient request. RECOMMENDATIONS: PT Discharge Recommendations PT Discharge Recommendations: Inpatient Setting Equipment Recommendations: Too early to be determined Therapist: Jackelin Blue, PT Date: 08/28/2017 * Giovana Reid - 08/28/2017 1:17 PM CDT Reason for Visit: jade visit Jacqueline/Taoist: jew Source of Purpose/Meaning: God==4 dogs=,friends Worries/Concerns/Struggles: Patient states she has broken ankle with infection, kidney issues, a bad back, arthritis and a rash. She used to walk 4 miles a day, ride a horse and plant [place] in her garden. She looks cheerful and just had her hair done this morning (cap) which seemed to encourage Her. She states her has passed but she has great kids. No other family mentioned. She attends and is active in a [employer]af[employer] in [place], [place] and they are in touch wither her. She is trying to make sense of what has taken place. We discussed Job and the outcome and that there was an end to his suffering. Patient states this analogy helps her. She has multiple issues and has been frustrated. While talking she laughs, smiles and chatters away. She is very social at home. The doctor arrived before we could pray but held her hand and will come back josé antonio. Method(s) of Coping: Prayer. 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 Support System: Friends,dogs. Interventions/Plan: Will return to discuss dogs and spiritual life. The spiritual care team is available as needed, 02/09, through the campus switchboard ([phone]). For immediate response, please page [phone]. For a response within 24 hours, please submit an order in O2 for a primary mill roller consult or call the administrative voicemail at [phone]. Ciro Maurer, RT - 08/28/2017 12:56 PM CDT Formatting of this note may be different from the original. RESPIRATORY THERAPY ADULT PROTOCOL EVALUATION RESPIRATORY PROTOCOL PLAN Medications Note: If indicated by protocol, medication orders will be placed by therapist. Procedures Oxygen/Humidity: O2 to keep SpO2 > 92% Monitoring: Pulse oximetry BID & PRN PATIENT EVALUATION RESULTS Chart Review * Pulmonary Hx: No pulmonary diagnosis OR no smoking hx * Surgical Hx: No surgery OR last surgery > 6 weeks ago OR trach/stoma (BA) * Chest X-Ray: Clear OR not available * PFT/Oxygenation: FEV1, PEFR < 70% OR Pa02 < 70 RA OR Sp02 <92% RA OR Fi02 > 0.21 to keep Sp02 > 92% OR < 24 hours post-op (02 & oxim) OR chronic C02 retention (C02) Patient Assessment * Respiratory Pattern: Regular pattern and rate OR good chest excursion with deep breathing * Breath Sounds: Clear apically, but diminished in bases (LE) OR CHF related crackles (02) (oximetry) * Cough / Sputum: Strong, effective cough OR nonproductive * Mental Status: Alert, oriented, cooperative * Activity Level: Ambulatory with assistance Priority Index Total Points: 4 Points * Priority Index: 1 PRIORITY INDEX GUIDELINES* Priority Points 1 0-9 points 2 9-18 points 3 > 18 points + Pulm Dx or Home Rx *Higher points indicate higher acuity. Therapist: Ciro Borjas, RT Date: 08/28/2017 [place] AC=Airway clearance AM=Aerosolized medication BA=[place] aerosol DB&C=Deep breathe & cough FEV1=Forced expiratory volume in first second) IC=Inspiratory capacity LE=Lung expansion MDI=Metered dose inhaler Neb=Nebulizer O2=Oxygen Oxim=Oximetry PEFR=Peak expiratory flow rate CLOTHING AND TEXTILES TEACHER=Rapid Response Team * Karina August, DO - 08/28/2017 10:32 AM CDT Formatting of this note may be different from the original. Infectious Diseases Progress Note Today's Date: 08/28/2017 Admission Date: 08/22/2017 Reason for this consultation: Total ankle replacement 07/18. Now w/post op infection. Assessment: MSSA Hardware infx complicating surg wound infection on R ankle 5 wks out R total ankle arthroplasty with shin Prophecy implant, gastroc resection, revision of talonavicular joint arthrodesis w/autogenous bone graft + infuse after removal of the prior deep implant Wound erythema, drainage around 08/20 from sinus tract R medial ankle along incision; swab GS: staph - cult MSSA OR 08/26 for poly exchange, GS neg, tissue cult 1 colony MSSA ONI with kappa protein spike In setting of vanc w/inc level HTN OA Drug rash - most likely culprit cefazolin 08/28 Acute hypoxic resp failure with R>L basilar infil - suspect edema Recommendations: 1. DC ancef (rash) - I am hesitant to switch to nafcillin in setting of new rash on blactam; avoiding vanc (ONI) - will do dapto 6mg/kg/day renal dosed for now and we can consider challenge w/nafcillin once more clinically stable 2. Cont rifampin bid po for now (less likely to cause drug allergy) 3. FU surgical cultures 4. Monitor cbc, cmp for antibiotic toxicity - given rash - add diff to cbc in lab (?eos) and change cbc to daily diff 5. Getting more lasix today for suspected pulm edema - no cough or fever - has had good MS and elevated HOB I do not have concern for HAP or aspiration pna at this time. If she does get fever please page me; PE possible but less likely w/ o cp/cough or tachycardia 6. Tentatively 6 weeks of IV antibiotic therapy followed by 3 mo po ( tentatively rifampin + doxy); CM to help set up RN and home infusion 7. FU heme c/s and rec studies will follow Complexity of medical decision making is high due to the multi-system nature of the infectious disease process or potential for limb-threatening infection as well as concerns including but not limited to complexity of the patient's underlying illnesses, the identification and sensitivities of the organisms being treated, the potential for antimicrobial toxicities which are being monitored by complete blood counts and chemistry analysis between visits and the potential for drug-drug interactions, as well as concerns regarding immunologic function, and interplay of other issues. History of Present Illness Steff Azul is a 72 y.o. Female with h/o osteoporosis here w/postop ankle infection. Afeb, new hypoxia/sob CXR with suspected pulm edema No f/c/s No cough or CP No n/v Pain in ankle New itchy rash on abdomen and breasts Antimicrobial Start date End date vanc 08/22 08/25 zosyn 08/22 08/25 ancef 08/26 rif 08/26 Estimated Creatinine Clearance: 17 mL/min (A) (based on SCr of 3.28 mg/dL (H)). Medications Scheduled Meds: amLODIPine (NORVASC) tablet 10 mg 10 mg Oral QDAY aspirin tablet 325 mg 325 mg Oral QDAY atorvastatin (LIPITOR) tablet 20 mg 20 mg Oral QDAY cloNIDine (CATAPRESS) tablet 0.1 mg 0.1 mg Oral BID cyclosporine (RESTASIS) 0.05 % ophthalmic emulsion 1 drop 1 drop Both Eyes BID DAPTOmycin (CUBICIN) injection 475 mg 6 mg/kg Intravenous Q48H* docusate (COLACE) capsule 100 mg 100 mg Oral BID(-) duloxetine DR (CYMBALTA) capsule 60 mg 60 mg Oral QHS FUROSEMIDE 10 MG/ML IJ SOLN (Cabinet Override) NOW hydrocortisone 2.5 % topical cream Topical BID lactobacillus rhamnosus GG (CULTURELLE) 15 billion cell capsule 1 capsule 1 capsule Oral BID w/meals latanoprost (XALATAN) 0.005 % ophthalmic solution 1 drop 1 drop Both Eyes QHS milk of magnesia (CONC) oral suspension 10 mL 10 mL Oral QDAY(21) nebivolol (BYSTOLIC) tablet 10 mg 10 mg Oral BID polyethylene glycol 3350 (MIRALAX) packet 17 g 1 packet Oral QDAY rifAMPin (RIFADINE) capsule 300 mg 300 mg Oral BID senna (SENOKOT) tablet 1 tablet 1 tablet Oral BID timolol maleate (TIMOPTIC) 0.5 % ophthalmic drops 1 drop 1 drop Both Eyes QDAY Continuous Infusions: PRN and Respiratory Meds:ALPRAZolam TID PRN, bisacodyl QDAY PRN, diphenhydrAMINE Q6H PRN OR diphenhydrAMINE Q6H PRN, fentaNYL citrate PF Q1H PRN, hydrALAZINE Q6H PRN, HYDROcodone/acetaminophen Q3H PRN, ondansetron (ZOFRAN ) IV Q6H PRN, prochlorperazine Q6H PRN Physical Examination Vital Signs: Last Vital Signs: 24 Hour Range BP: 188/88 (08/28 1019) Temp: 36.4 C (97.5 F) (08/28 1019) Pulse: 76 (08/28 1019) Respirations: 18 PER MINUTE (08/28 101) SpO2: 97 % (08/28 1019) O2 Delivery: Nasal Cannula (08/28 1018) BP: (152-202)/(74-99) Temp: [36.4 C (97.5 F)-36.9 C (98.5 F)] Pulse: [69-83] Respirations: [17 PER MINUTE-26 PER MINUTE] SpO2: [92 %-98 %] O2 Delivery: Nasal Cannula General appearance: alert, oriented, NAD HENT: no thrush Lungs: bibasilar rales Heart: Regular rhythm, reg rate, with no murmur Abdomen: soft, non-tender, non-distended, normoactive bowel sounds Ext: No clubbing, cyanosis or edema - R ankle dressed postop Skin: new maculopapular rash on abdomen and breasts -spares limbs and back at this time Lines: PICC no erythema Lab Review Hematology Recent Labs 08/26/17 0400 08/27/17 0343 08/28/17 0304 WBC 6.8 8.4 11.4* HGB 10.0* 10.6* 10.9* HCT 30.4* 31.7* 33.0* PLTCT 286 288 384 Chemistry Recent Labs 08/26/17 0400 08/27/17 0343 08/28/17 0304 NA 136* 136* 135* K 4.3 4.3 3.9 CL 104 106 103 CO2 23 21 23 BUN 24 25 28* CR 3.14* 3.20* 3.28* GFR 15* 14* 14* GLU 81 113* 125* CA 8.7 8.8 9.1 Microbiology, Radiology and other Diagnostics Review Microbiology data reviewed. Pertinent radiology images viewed. CXR 08/28 with bl pulm edema Karina August DO Pager [phone] Infectious Diseases Faculty * Glo Vidal MD - 08/28/2017 9:35 AM CDT Formatting of this note may be different from the original. General Progress Note Admission Date: 08/22/2017 LOS: 6 days Assessment/Plan: ONI--DDx incl med tox (NSAID, ACEI) vs AIN. UO brisk yest, though Cr without sig change X sev days. 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 She may well have more than one process. I think she is at least vol overloaded. --Lasix 40 IV now --increase O2 to 5l nc --cont pulse ox --repeat with 80 mg IV if no sig UO after 30-45 min --consider r/o PE --consider chest CT (without contrast) to eval LL infiltrates Paraproteinemia--heme is following. Had skeletal survey this am. Anemia--d/t inf vs BM process. Suspect former. Rash--suspect drug rash from antibx. Pt states she has never taken ceph before this adm. Possible dx/px/tx options d/w pt at length; all questions answered. Active Problems: Wound infection Subjective Steff Azul is a 72 y.o. female. Patient c/o severe sob, much worse now c/w sev hrs ago. Received lasix 40 mg X 2 yest pm. C/o pruritic rash since last night. UO--3000 yest Cr-3.3 this am c/w 3.2 yest am c/w baseline Cr-0.6-0.8 on adm BP full Sats upper 90s on 2l CXR--increased infilt in bases, fluid in fissure Medications Scheduled Meds: amLODIPine (NORVASC) tablet 10 mg 10 mg Oral QDAY aspirin tablet 325 mg 325 mg Oral QDAY atorvastatin (LIPITOR) tablet 20 mg 20 mg Oral QDAY ceFAZolin (ANCEF) IVP 2 g 2 g Intravenous Q12H* cloNIDine (CATAPRESS) tablet 0.1 mg 0.1 mg Oral BID cyclosporine (RESTASIS) 0.05 % ophthalmic emulsion 1 drop 1 drop Both Eyes BID docusate (COLACE) capsule 100 mg 100 mg Oral BID(9-17) duloxetine DR (CYMBALTA) capsule 60 mg 60 mg Oral QHS lactobacillus rhamnosus GG (CULTURELLE) 15 billion cell capsule 1 capsule 1 capsule Oral BID w/meals latanoprost (XALATAN) 0.005 % ophthalmic solution 1 drop 1 drop Both Eyes QHS milk of magnesia (CONC) oral suspension 10 mL 10 mL Oral QDAY(21) nebivolol (BYSTOLIC) tablet 10 mg 10 mg Oral BID polyethylene glycol 3350 (MIRALAX) packet 17 g 1 packet Oral QDAY rifAMPin (RIFADINE) capsule 300 mg 300 mg Oral BID senna (SENOKOT) tablet 1 tablet 1 tablet Oral BID timolol maleate (TIMOPTIC) 0.5 % ophthalmic drops 1 drop 1 drop Both Eyes QDAY Continuous Infusions: PRN and Respiratory Meds:ALPRAZolam TID PRN, bisacodyl QDAY PRN, diphenhydrAMINE Q6H PRN OR diphenhydrAMINE Q6H PRN, fentaNYL citrate PF Q1H PRN, hydrALAZINE Q6H PRN, HYDROcodone/acetaminophen Q3H PRN, ondansetron (ZOFRAN ) IV Q6H PRN, prochlorperazine Q6H PRN Objective Vital Signs: Last Filed Vital Signs: 24 Hour Range BP: 181/87 (08/28 605) Temp: 36.6 C (97.9 F) (08/28 605) Pulse: 82 (08/28 605) Respirations: 18 PER MINUTE (08/28 605) SpO2: 97 % (08/28 605) O2 Delivery: Nasal Cannula (08/28 605) BP: (152-202)/(74-99) Temp: [36.4 C (97.5 F)-36.9 C (98.5 F)] Pulse: [69-83] Respirations: [17 PER MINUTE-26 PER MINUTE] SpO2: [92 %-98 %] O2 Delivery: Nasal Cannula Intensity Pain Scale 0-10 (Pain 1): 2 (08/28/17 0754) Vitals: 08/22/17 1041 Weight: 79.4 kg (175 lb) Intake/Output Summary: (Last 24 hours) Intake/Output Summary (Last 24 hours) at 08/28/17 0936 Last data filed at 08/28/17 0757 Gross per 24 hour Intake 1710 ml Output 3000 ml Net -1290 ml Stool Occurrence: 1 Physical Exam Alert, dyspeic Nc/at Oral mucosa dry anict TMM RRR Few crackles in bases abd s, nt No LE edema Tr dep edema Moves all extrem Answers questions approrpiately Macular erythematous rash on trunk Lab Review Results for orders placed or performed during the hospital encounter of (from the past 24 hour(s)) IMMUNOGLOBULINS-IGA,IGG,IGM Collection Time: 08/27/17 12:07 PM # # Low-High IgG 913 762 - 1,488 MG/DL IgA 187 70 - 390 MG/DL IgM 131 38 - 328 MG/DL URINALYSIS DIPSTICK REFLEX TO CULTURE Collection Time: 08/27/17 3:59 PM # # Low-High Color,UA YELLOW Turbidity,UA CLEAR CLEAR-CLEAR Specific [place]-Urine 1.004 1.003 - 1.035 pH,UA 5.0 5.0 - 8.0 Protein,UA NEG NEG-NEG Glucose,UA NEG NEG-NEG Ketones,UA NEG NEG-NEG Bilirubin,UA NEG NEG-NEG Blood,UA 1+ (A) NEG-NEG Urobilinogen,UA NORMAL NORM-NORMAL Nitrite,UA NEG NEG-NEG Leukocytes,UA 1+ (A) NEG-NEG Urine Ascorbic Acid, UA NEG NEG-NEG URINALYSIS MICROSCOPIC REFLEX TO CULTURE Collection Time: 08/27/17 3:59 PM # # Low-High WBCs,UA 2-10 0 - 2 /HPF RBCs,UA 2-10 0 - 3 /HPF Comment,UA Urine submitted for reflex culture if criteria are met:WBC>10, positive nitrite and/or >=1+ leukocyte esterase. If quantity is not sufficient, an addendum will follow. MucousUA TRACE Bacteria,UA FEW (A) NEG-NEG Squamous Epithelial Cells 0-2 0 - 5 CBC Collection Time: 08/28/17 3:04 AM # # Low-High White Blood Cells 11.4 (H) 4.5 - 11.0 K/UL RBC 3.60 (L) 4.0 - 5.0 M/UL Hemoglobin 10.9 (L) 12.0 - 15.0 GM/DL Hematocrit 33.0 (L) 36 - 45 % MCV 91.7 80 - 100 FL MCH 30.2 26 - 34 PG MCHC 33.0 32.0 - 36.0 G/DL RDW 13.2 11 - 15 % Platelet Count 384 150 - 400 K/UL MPV 7.5 7 - 11 FL BASIC METABOLIC PANEL Collection Time: 08/28/17 3:04 AM # # Low-High Sodium 135 (L) 137 - 147 MMOL/L Potassium 3.9 3.5 - 5.1 MMOL/L Chloride 103 98 - 110 MMOL/L CO2 23 21 - 30 MMOL/L Anion Gap 9 3 - 12 Glucose 125 (H) 70 - 100 MG/DL Blood Urea Nitrogen 28 (H) 7 - 25 MG/DL Creatinine 3.28 (H) 0.4 - 1.00 MG/DL Calcium 9.1 8.5 - 10.6 MG/DL eGFR Non 14 (L) >60 mL/min eGFR 17 (L) >60 mL/min N/A Point of Care Testing (Last 24 hours) Glucose: (!) 125 (08/28/17 0304) * Mati Salas MD - 08/28/2017 8:37 AM CDT I received notification from Dr. Morales regarding the consult of our team was ordered in error. After discussing, she confirmed that there was never any witnessed atrial arrhythmia post-operatively (which was the original reason for the consult). Our consult placed on 08/23/17 and my attestation 08/24/17 clearly documents that our evaluation found no documented evidence for atrial fibrillation but since the consult order suggested we needed to evaluate for atrial fibrillation our senior counsel commercial to the patient and recommendations were appropriate based on the consult question (see original consult note). This updated progress note serves to document that this patient has no evidence for atrial arrhythmia during this hospitalization and our consult note should be interpreted in light of this information. Dr. Morales has informed the patient who is appreciative of understanding why this consult was performed. Thank you for allowing us to participate in the shared care of your patient. Mati Salas MD [facility] Trans[facility] [employer] In advertising display rotator Director Division of Advanced Heart Failure & Cardiac Transplantation [facility] Primary Transplant Physician Manager Market Development, Heart Trans[facility] [email or web address] * Franklin Nur MD - 08/28/2017 7:17 AM CDT Formatting of this note may be different from the original. Orthopedic Surgery Progress Note S: Pain well-controlled. Patient tolerating current diet. Patient had shortness of breath last night and a CXR revealed pulmonary edema, we restarted lasix for her. Patient also noted a pruritic rash on abdomen this morning. She has been educated on use of incentive spirometer. Patient also reports abdominal pain and loose stools. O: Blood pressure 181/87, pulse 82, temperature 36.6 C (97.9 F), height 167.6 cm (66"), weight 79.4 kg (175 lb), SpO2 97 %. Gen: A&O, NAD CV: Normal rate Pulm: Non-labored Abd: Soft, NT, ND Extremities: right lower extremity compartments compressible and no pain with passive stretch, TA/EHL/FHL/PT function intact, SILT, distal cap refill < 2 sec Incisions: Clean dry and intact. Post-op Drains: (24 hours): None Complete Blood Counts Recent Labs 08/25/17 1722 08/26/17 0400 08/27/17 0343 08/28/17 0304 HGB 10.9* 10.0* 10.6* 10.9* HCT 32.9* 30.4* 31.7* 33.0* WBC 7.7 6.8 8.4 11.4* PLTCT 297 286 288 384 Chemistry Panel Recent Labs 08/26/17 0400 08/27/17 0343 08/28/17 0304 NA 136* 136* 135* K 4.3 4.3 3.9 CL 104 106 103 CO2 23 21 23 BUN 24 25 28* CR 3.14* 3.20* 3.28* GLU 81 113* 125* CA 8.7 8.8 9.1 Coagulation Studies No results for input(s): PTT, INR in the last 72 hours. Radiology - CXR revealed pulmonary edema. Problem List: Patient Active Problem List Diagnosis Date Noted Wound infection 08/22/2017 Ankle arthritis 07/01/2017 Arthritis of left foot 07/01/2017 Arthritis of foot 10/11/2015 A: Steff Azul is a 72 y.o. female s/p R TAA with post op infection s/p I &D 08/23, repeat I&D 08/26 with poly exchange. Now with ONI, pulmonary edema. P: WB Status - NWB RLE splint ROM Status - As tolerated Patient to sit up in bed, and get in chair with therapy Antibiotics - continue ancef, patient is growing MSSA Pain Control - Continue current pain regimen Diet - Continue current diet Heme, nephrology and medicine have been consulted. Patient has continued lasix regimen, monitoring creatinine and fluid status closely. KUB and repeat CXR have been ordered. PT/OT - consulted DVT PPX - Mechanical, Chemoprophylaxis Franklin Nur MD Pager [phone] * Sydnie Valerio, RN - 08/27/2017 8:20 PM CDT Pt BP 177/84, RR 26, and c/o SOB. Mild auditory wheezes and fine crackles in bilateral lower lobes. Dr. Sinclair notified and order received to administer another one time dose 40mg of IV lasix. Langford in place and pt diuresing ~118ml/ hr. HOB elevated and pt states this helps some with her breathing. Update 1871: Pt states breathing has improved following lasix. BP stable/slowly decreasing. Per ortho on-call, administer PRN hydralazine when available at 2345 if still hypertensive. * Mona Aguirre, RN - 08/27/2017 2:33 PM CDT Formatting of this note may be different from the original. 1320- Patient reporting SOB, patient declines feeling chest pressure/pain. Patients O2 was placed back on her. Vital signs obtained and are within normal ranges. Vitals: 08/27/17 1322 BP: 164/89 Pulse: 69 Temp: 36.6 C (97.9 F) SpO2: 96% Patient reports feeling better with the oxygen. Patient stated that she will notifiy staff if she experiences being SOB again. 1425- Patient reported feeling too SOB to work with PT today. Dr. Madrid notified and ordered a STAT chest x-ray. Dr. Madrid requested that the nephrology /renal consult be contacted to see if they want to continue continuous IV fluids and if they recommend lasix be started. 1507- Spoke with nephrology/renal team and they stated that they would discuss with Dr. Vidal. * Jackelin Blue, PT - 08/27/2017 2:27 PM CDT PHYSICAL THERAPY NOTE Met with patient at bedside for PT. Patient c/o increased shortness of breath this afternoon- RN notified, vitals stable. Patient has been mobilizing prn to bathroom without difficulty. Plan to follow up tomorrow for ongoing PT as tolerated. Therapist: Jackelin Blue, PT Date: 08/27/2017 * Karina August, - 08/27/2017 12:20 PM CDT Formatting of this note may be different from the original. Infectious Diseases Progress Note Today's Date: 08/27/2017 Admission Date: 08/22/2017 Reason for this consultation: Total ankle replacement 07/18. Now w/post op infection. Assessment: MSSA Hardware infx complicating surg wound infection on R ankle 5 wks out R total ankle arthroplasty with shin Prophecy implant, gastroc resection, revision of talonavicular joint arthrodesis w/autogenous bone graft + infuse after removal of the prior deep implant Wound erythema, drainage around 08/20 from sinus tract R medial ankle along incision; swab GS: staph - cult MSSA OR 08/26 for poly exchange, GS neg, tissue cult P ONI with kappa protein spike HTN OA Recommendations: 1. Cont ancef 2g IV q8h (renal dose for now) 2. Cont rifampin bid po 3. FU new surgical cultures 4. Monitor cbc, cmp for antibiotic toxicity 5. Tentatively 6 weeks of IV antibiotic therapy followed by 3 mo po ( tentatively rifampin + doxy); CM to help set up HH RN and home infusion 6. FU heme c/s will follow Complexity of medical decision making is high due to the multi-system nature of the infectious disease process or potential for limb-threatening infection as well as concerns including but not limited to complexity of the patient's underlying illnesses, the identification and sensitivities of the organisms being treated, the potential for antimicrobial toxicities which are being monitored by complete blood counts and chemistry analysis between visits and the potential for drug-drug interactions, as well as concerns regarding immunologic function, and interplay of other issues. History of Present Illness Steff Azul is a 72 y.o. Female with h/o osteoporosis here w/postop ankle infection. Afeb, VSS No f/c/s No cough or sob No n/v; had loose stool after stool softeners Pain in ankle improved Antimicrobial Start date End date vanc 08/22 08/25 zosyn 08/22 08/25 ancef 08/26 rif 08/26 Estimated Creatinine Clearance: 17.4 mL/min (A) (based on SCr of 3.2 mg/dL (H)). Medications Scheduled Meds: acetaminophen (TYLENOL) tablet 650 mg 650 mg Oral Q6H* amLODIPine (NORVASC) tablet 10 mg 10 mg Oral QDAY aspirin tablet 325 mg 325 mg Oral QDAY atorvastatin (LIPITOR) tablet 20 mg 20 mg Oral QDAY ceFAZolin (ANCEF) IVP 2 g 2 g Intravenous Q12H* cloNIDine (CATAPRESS) tablet 0.1 mg 0.1 mg Oral BID cyclosporine (RESTASIS) 0.05 % ophthalmic emulsion 1 drop 1 drop Both Eyes BID docusate (COLACE) capsule 100 mg 100 mg Oral BID(-) duloxetine DR (CYMBALTA) capsule 60 mg 60 mg Oral QHS lactobacillus rhamnosus GG (CULTURELLE) 15 billion cell capsule 1 capsule 1 capsule Oral BID w/meals latanoprost (XALATAN) 0.005 % ophthalmic solution 1 drop 1 drop Both Eyes QHS milk of magnesia (CONC) oral suspension 10 mL 10 mL Oral QDAY(21) nebivolol (BYSTOLIC) tablet 10 mg 10 mg Oral BID polyethylene glycol 3350 (MIRALAX) packet 17 g 1 packet Oral QDAY rifAMPin (RIFADINE) capsule 300 mg 300 mg Oral BID senna (SENOKOT) tablet 1 tablet 1 tablet Oral BID timolol maleate (TIMOPTIC) 0.5 % ophthalmic drops 1 drop 1 drop Both Eyes QDAY Continuous Infusions: PRN and Respiratory Meds:ALPRAZolam QHS PRN, bisacodyl QDAY PRN, diphenhydrAMINE Q6H PRN OR diphenhydrAMINE Q6H PRN, fentaNYL citrate PF Q1H PRN, hydrALAZINE Q6H PRN, HYDROcodone/acetaminophen Q3H PRN, ondansetron (ZOFRAN ) IV Q6H PRN, prochlorperazine Q6H PRN Physical Examination Vital Signs: Last Vital Signs: 24 Hour Range BP: 184/76 (08/27 1211) Temp: 36.4 C (97.5 F) (08/27 121) Pulse: 73 (08/27 121) Respirations: 18 PER MINUTE (08/27 121) SpO2: 95 % (08/27 121) O2 Delivery: Nasal Cannula (08/27 121) SpO2 Pulse: 75 (08/26 1526) BP: (152-194)/(65-94) Temp: [36.3 C (97.4 F)-37 C (98.6 F)] Pulse: [69-80] Respirations: [13 PER MINUTE-22 PER MINUTE] SpO2: [90 %-99 %] O2 Delivery: Nasal Cannula General appearance: alert, oriented, NAD HENT: no thrush Lungs: clear bl anteriorly Heart: Regular rhythm, reg rate, with no murmur Abdomen: soft, non-tender, non-distended, normoactive bowel sounds Ext: No clubbing, cyanosis or edema - R ankle dressed postop Skin: no rash Lines: PICC no erythema Lab Review Hematology Recent Labs 08/25/17 1722 08/26/17 0400 08/27/17 0343 WBC 7.7 6.8 8.4 HGB 10.9* 10.0* 10.6* HCT 32.9* 30.4* 31.7* PLTCT 297 286 288 Chemistry Recent Labs 08/25/17 0409 08/26/17 0400 08/27/17 0343 NA 132* 136* 136* K 4.5 4.3 4.3 CL 98 104 106 CO2 27 23 21 BUN 24 24 25 CR 2.72* 3.14* 3.20* GFR 17* 15* 14* GLU 127* 81 113* CA 9.0 8.7 8.8 Microbiology, Radiology and other Diagnostics Review Microbiology data reviewed. Pertinent radiology images viewed. Karina August DO Pager [phone] Infectious Diseases Faculty * Glo Vdial MD - 08/27/2017 9:26 AM CDT Formatting of this note may be different from the original. General Progress Note Admission Date: 08/22/2017 LOS: 6 days Assessment/Plan: ONI--nonoliguric. DDx incl med tox (NSAID vs ACEI + vol depletion) vs tubular damage in setting of paraproteinuria (though no sig proteinuris) vs obstruction. I would have expected any contribution from obstruction to have been resolved with placement of Langford. I examined another urinary sediment, and found rare finely gran cast, 20+ WBCs/ hpf, 10+ RBC/hpf. -check UCx in setting of pyuria -DC all but necessary meds, darell PPI Paraproteinemia--heme consult and UPEP/PARMJIT pending. AUR--d/t meds (pain meds vs anesthesia) vs UTI? --cont Langford Possible dx/px/tx options d/w pt at length; all questions answered. Active Problems: Wound infection Subjective Steff Azul is a 72 y.o. female. Patient seen and examined 08/27/17 late am. C/o mild sob this am. C/o anorexia. No n/vom/d. Langford placed yest with increased recorded UO. Had surg yest, marizol well. Pain well-controlled. UO--6642 yest Cr-3.2 this am c/w 3.1 yest am Medications Scheduled Meds: amLODIPine (NORVASC) tablet 10 mg 10 mg Oral QDAY aspirin tablet 325 mg 325 mg Oral QDAY atorvastatin (LIPITOR) tablet 20 mg 20 mg Oral QDAY ceFAZolin (ANCEF) IVP 2 g 2 g Intravenous Q12H* cloNIDine (CATAPRESS) tablet 0.1 mg 0.1 mg Oral BID cyclosporine (RESTASIS) 0.05 % ophthalmic emulsion 1 drop 1 drop Both Eyes BID docusate (COLACE) capsule 100 mg 100 mg Oral BID(9-17) duloxetine DR (CYMBALTA) capsule 60 mg 60 mg Oral QHS lactobacillus rhamnosus GG (CULTURELLE) 15 billion cell capsule 1 capsule 1 capsule Oral BID w/meals latanoprost (XALATAN) 0.005 % ophthalmic solution 1 drop 1 drop Both Eyes QHS milk of magnesia (CONC) oral suspension 10 mL 10 mL Oral QDAY(21) nebivolol (BYSTOLIC) tablet 10 mg 10 mg Oral BID polyethylene glycol 3350 (MIRALAX) packet 17 g 1 packet Oral QDAY rifAMPin (RIFADINE) capsule 300 mg 300 mg Oral BID senna (SENOKOT) tablet 1 tablet 1 tablet Oral BID timolol maleate (TIMOPTIC) 0.5 % ophthalmic drops 1 drop 1 drop Both Eyes QDAY Continuous Infusions: PRN and Respiratory Meds:ALPRAZolam TID PRN, bisacodyl QDAY PRN, diphenhydrAMINE Q6H PRN OR diphenhydrAMINE Q6H PRN, fentaNYL citrate PF Q1H PRN, hydrALAZINE Q6H PRN, HYDROcodone/acetaminophen Q3H PRN, ondansetron (ZOFRAN ) IV Q6H PRN, prochlorperazine Q6H PRN Objective Vital Signs: Last Filed Vital Signs: 24 Hour Range BP: 181/87 (08/28 605) Temp: 36.6 C (97.9 F) (08/28 605) Pulse: 82 (08/28 605) Respirations: 18 PER MINUTE (08/28 605) SpO2: 97 % (08/28 605) O2 Delivery: Nasal Cannula (08/28 605) BP: (152-202)/(74-99) Temp: [36.4 C (97.5 F)-36.9 C (98.5 F)] Pulse: [69-83] Respirations: [17 PER MINUTE-26 PER MINUTE] SpO2: [92 %-98 %] O2 Delivery: Nasal Cannula Intensity Pain Scale 0-10 (Pain 1): 2 (08/28/17 0754) Vitals: 08/22/17 1041 Weight: 79.4 kg (175 lb) Intake/Output Summary: (Last 24 hours) Intake/Output Summary (Last 24 hours) at 08/28/17 0927 Last data filed at 08/28/17 0757 Gross per 24 hour Intake 1710 ml Output 3000 ml Net -1290 ml Stool Occurrence: 1 Physical Exam Alert, nad Nc/at Wearing nc Anict, no injection Oral mucosa moist TMM, no cerv LA RRR No crackles abd s, nt Tr le edema Cast on LE Moves all extrem Answers questions appropriately No rash on exposed skin Lab Review Results for orders placed or performed during the hospital encounter of (from the past 24 hour(s)) IMMUNOGLOBULINS-IGA,IGG,IGM Collection Time: 08/27/17 12:07 PM # # Low-High IgG 913 762 - 1,488 MG/DL IgA 187 70 - 390 MG/DL IgM 131 38 - 328 MG/DL URINALYSIS DIPSTICK REFLEX TO CULTURE Collection Time: 08/27/17 3:59 PM # # Low-High Color,UA YELLOW Turbidity,UA CLEAR CLEAR-CLEAR Specific [place]-Urine 1.004 1.003 - 1.035 pH,UA 5.0 5.0 - 8.0 Protein,UA NEG NEG-NEG Glucose,UA NEG NEG-NEG Ketones,UA NEG NEG-NEG Bilirubin,UA NEG NEG-NEG Blood,UA 1+ (A) NEG-NEG Urobilinogen,UA NORMAL NORM-NORMAL Nitrite,UA NEG NEG-NEG Leukocytes,UA 1+ (A) NEG-NEG Urine Ascorbic Acid, UA NEG NEG-NEG URINALYSIS MICROSCOPIC REFLEX TO CULTURE Collection Time: 08/27/17 3:59 PM # # Low-High WBCs,UA 2-10 0 - 2 /HPF RBCs,UA 2-10 0 - 3 /HPF Comment,UA Urine submitted for reflex culture if criteria are met:WBC>10, positive nitrite and/or >=1+ leukocyte esterase. If quantity is not sufficient, an addendum will follow. MucousUA TRACE Bacteria,UA FEW (A) NEG-NEG Squamous Epithelial Cells 0-2 0 - 5 CBC Collection Time: 08/28/17 3:04 AM # # Low-High White Blood Cells 11.4 (H) 4.5 - 11.0 K/UL RBC 3.60 (L) 4.0 - 5.0 M/UL Hemoglobin 10.9 (L) 12.0 - 15.0 GM/DL Hematocrit 33.0 (L) 36 - 45 % MCV 91.7 80 - 100 FL MCH 30.2 26 - 34 PG MCHC 33.0 32.0 - 36.0 G/DL RDW 13.2 11 - 15 % Platelet Count 384 150 - 400 K/UL MPV 7.5 7 - 11 FL BASIC METABOLIC PANEL Collection Time: 08/28/17 3:04 AM # # Low-High Sodium 135 (L) 137 - 147 MMOL/L Potassium 3.9 3.5 - 5.1 MMOL/L Chloride 103 98 - 110 MMOL/L CO2 23 21 - 30 MMOL/L Anion Gap 9 3 - 12 Glucose 125 (H) 70 - 100 MG/DL Blood Urea Nitrogen 28 (H) 7 - 25 MG/DL Creatinine 3.28 (H) 0.4 - 1.00 MG/DL Calcium 9.1 8.5 - 10.6 MG/DL eGFR Non 14 (L) >60 mL/min eGFR 17 (L) >60 mL/min N/A Point of Care Testing (Last 24 hours) Glucose: (!) 125 (08/28/17 0304) * Jamil Madrid - 08/27/2017 7:27 AM CDT Formatting of this note may be different from the original. S: No acute events. Pain this am. Patient tolerating current diet. O: Blood pressure 173/88, pulse 77, temperature 36.8 C (98.2 F), height 167.6 cm (66"), weight 79.4 kg (175 lb), SpO2 98 %. General: AAOx3, NAD Cardiac: RRR Respirations: Unlabored Abdomen: soft, nt Extremities: right lower extremity compartments soft, wiggles toes, SILT, distal cap refill < 2 sec dressings: c/d/i. splint. No results for input(s): PTT, INR in the last 72 hours. CBC w/Diff Lab Results Component Value Date/Time WBC 8.4 08/27/2017 03:43 AM HGB 10.6 (L) 08/27/2017 03:43 AM HCT 31.7 (L) 08/27/2017 03:43 AM PLTCT 288 08/27/2017 03:43 AM Basic Metabolic Profile Lab Results Component Value Date/Time NA 136 (L) 08/27/2017 03:43 AM K 4.3 08/27/2017 03:43 AM CL 106 08/27/2017 03:43 AM CO2 21 08/27/2017 03:43 AM GAP 9 08/27/2017 03:43 AM Lab Results Component Value Date/Time BUN 25 08/27/2017 03:43 AM CR 3.20 (H) 08/27/2017 03:43 AM GLU 113 (H) 08/27/2017 03:43 AM A/P: 72F s/p R TAA now w/post op infection s/p I&D 08/24 and I&D w/poly exchange 08/26 -PT OT -weight bearing: NWB RLE, splint -DVT ppx: asa, mobilize, scd -continue current regimen for pain control -acute blood loss anemia-hgb 10.6. monitor - Cltx swab: staph. Synovial: NGTD, OR cltx: MSSA. OR 08/26 cltx: NGTD - Ancef/rifampin. ID consult. will need picc. Place today. -regular diet - ONI. IVF. 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 Heme today for paraproteinuria. Langford. - N/V. diarrhea. added compazeine. C. diff neg. KUB no bowel obstruction. dispo: continue inpt. OR today [id number] * Sydnie Valerio RN - 08/27/2017 2:28 AM CDT Formatting of this note may be different from the original. Vitals: 08/27/17 0220 BP: (!) 194/92 Pulse: 72 Temp: 36.4 C (97.6 F) SpO2: 94% BP taken w/ dynamap and manually by RN. Dr. Arguelles notified of hypertension and order received for PRN hydralazine 10mg IV. 0237: 10mg hydralazine given. 15 minutes post admin., BP 167/84. LS CTA. Langford in place and UOP adequate. Will continue to monitor VS. * Glo Vidal MD - 08/26/2017 6:02 PM CDT Pt not in room this afternoon. Had I&D, poly exchange today. Per pt's floor nurse, she received report that pt was SC for 850 ml urine in PACU. Per pt's nurse from yest, pt voided 250 and was found to have PVR of 220 ml by bladder scan. UO-900 yest Review of labs shows: Cr-3.1 this am c/w 2.7 yest am Robe on SPEP; abnormal FLC Hematuria on UA, no sig pyuria ONI--no muddy brown casts in sediment yest that would have suggested ATN, though this is still in DDx. Cr only slightly higher today c/w yest, so may be starting to turn around. She clearly has functional obstruction, and needs to have bladder appropriately drained by ISC or Langford. Etiol of bladder dysfunction unclear. No sign of UTI, though she has been on antibx. Possibly d/ t pain meds, anesthesia. If persists, would have urol eval. Paraproteinemia--this may explain extreme ONI in absence of severe insult. Would ask heme to see tomorrow. * Karina August DO - 08/26/2017 1:21 PM CDT Formatting of this note may be different from the original. Infectious Diseases Progress Note Today's Date: 08/26/2017 Admission Date: 08/22/2017 Reason for this consultation: Total ankle replacement 07/18. Now w/post op infection. Assessment: MSSA Hardware infx complicating surg wound infection on R ankle 5 wks out R total ankle arthroplasty with shin Prophecy implant, gastroc resection, revision of talonavicular joint arthrodesis w/autogenous bone graft + infuse after removal of the prior deep implant Wound erythema, drainage around 08/20 from sinus tract R medial ankle along incision; swab GS: staph - cult MSSA ONI HTN OA Recommendations: 1. Cont ancef 2g IV q8h (renal dose for now) 2. Cont rifampin given hardware in place bid po 3. Will FU OR findings today 4. Monitor cbc, cmp for antibiotic toxicity 5. Will need SL picc line for termination clerk IV antibiotic, Consult CM to help set up HH RN and home infusion will follow Complexity of medical decision making is high due to the multi-system nature of the infectious disease process or potential for limb-threatening infection as well as concerns including but not limited to complexity of the patient's underlying illnesses, the identification and sensitivities of the organisms being treated, the potential for antimicrobial toxicities which are being monitored by complete blood counts and chemistry analysis between visits and the potential for drug-drug interactions, as well as concerns regarding immunologic function, and interplay of other issues. History of Present Illness Steff Azul is a 72 y.o. Female with h/o osteoporosis here w/postop ankle infection. Afeb, VSS No f/c/s No cough or sob Nausea improved, no abd pain Pain in ankle stable Antimicrobial Start date End date vanc 08/22 08/25 zosyn 08/22 08/25 ancef 08/26 rif 08/26 Estimated Creatinine Clearance: 17.7 mL/min (A) (based on SCr of 3.14 mg/dL (H)) . Medications Scheduled Meds: [Apr] ALPRAZolam (XANAX) tablet 0.5 mg 0.5 mg Oral QHS [Apr] amLODIPine (NORVASC) tablet 10 mg 10 mg Oral QDAY [Apr] aspirin tablet 325 mg 325 mg Oral QDAY [APR Hold] atorvastatin (LIPITOR) tablet 20 mg 20 mg Oral QDAY ceFAZolin (ANCEF) IVP 2 g 2 g Intravenous Q12H* [APR Hold] cloNIDine (CATAPRESS) tablet 0.1 mg 0.1 mg Oral BID [APR Hold] cyclosporine (RESTASIS) 0.05 % ophthalmic emulsion 1 drop 1 drop Both Eyes BID [APR Hold] docusate (COLACE) capsule 100 mg 100 mg Oral BID(-17) [APR Hold] duloxetine DR (CYMBALTA) capsule 60 mg 60 mg Oral QHS [APR Hold] latanoprost (XALATAN) 0.005 % ophthalmic solution 1 drop 1 drop Both Eyes QHS [APR Hold] milk of magnesia (CONC) oral suspension 10 mL 10 mL Oral QDAY() [MAR Hold] nebivolol (BYSTOLIC) tablet 10 mg 10 mg Oral BID [Apr] polyethylene glycol 3350 (MIRALAX) packet 17 g 1 packet Oral QDAY [Apr] rifAMPin (RIFADINE) capsule 300 mg 300 mg Oral BID [Apr] senna (SENOKOT) tablet 1 tablet 1 tablet Oral BID [Apr] timolol maleate (TIMOPTIC) 0.5 % ophthalmic drops 1 drop 1 drop Both Eyes QDAY Continuous Infusions: sodium chloride 0.9 % infusion PRN and Respiratory Meds:[Apr] acetaminophen Q4H PRN OR [Apr] acetaminophen Q4H PRN, [Apr] bisacodyl QDAY PRN, [Apr] diphenhydrAMINE Q6H PRN OR [Apr] diphenhydrAMINE Q6H PRN, [Apr] fentaNYL citrate PF Q1H PRN, [Apr] HYDROcodone/acetaminophen Q4H PRN, [Apr] ondansetron (ZOFRAN) IV Q6H PRN, [Apr] prochlorperazine Q6H PRN Physical Examination Vital Signs: Last Vital Signs: 24 Hour Range BP: 183/83 (08/26 1025) Temp: 36.9 C (98.4 F) (08/26 0943) Pulse: 82 (08/26 1025) Respirations: 16 PER MINUTE (08/26 1025) SpO2: 95 % (08/26 1025) O2 Delivery: None (Room Air) (08/26 1025) SpO2 Pulse: 81 (08/26 1025) BP: (165-192)/(80-93) Temp: [36.4 C (97.6 F)-36.9 C (98.4 F)] Pulse: [66-82] Respirations: [14 PER MINUTE-20 PER MINUTE] SpO2: [94 %-100 %] O2 Delivery: None (Room Air) General appearance: alert, oriented, NAD HENT: no thrush Lungs: clear bl Heart: Regular rhythm, reg rate, with no murmur Abdomen: soft, non-tender, non-distended, normoactive bowel sounds Ext: No clubbing, cyanosis or edema - R ankle dressed postop Skin: no rashes Lines: PIV Lab Review Hematology Recent Labs 08/25/17 0409 08/25/17 1722 08/26/17 0400 WBC 6.8 7.7 6.8 HGB 10.4* 10.9* 10.0* HCT 31.6* 32.9* 30.4* PLTCT 259 297 286 Chemistry Recent Labs 08/24/17 0347 08/25/17 0409 08/26/17 0400 NA 136* 132* 136* K 4.0 4.5 4.3 CL 98 98 104 CO2 31* 27 23 BUN 20 24 24 CR 1.65* 2.72* 3.14* GFR 31* 17* 15* GLU 138* 127* 81 CA 9.2 9.0 8.7 Microbiology, Radiology and other Diagnostics Review Microbiology data reviewed. Pertinent radiology images viewed. Karina August DO Pager [phone] Infectious Diseases Faculty * Deyanira Morales MD - 08/26/2017 11:14 AM CDT Cardiology consult placed erroneously on this patient on 08/23/17. Patient did not have Afib with RVR during perioperative period. Cardiology did come see patient while she was on the floor after discharge from PACU. Cardiology consult note placed on 08/23/17 at 18:23 was in reference to the consult that was placed in error. Claudia Morales Dept of Anesthesiology 08/26/17 Spoke with Ms. Azul this afternoon and explained that the circumstances of the cardiology consult. I explained that does not have atrial fibrillation and that the cardiology recommendations do not apply to her. She indicated understanding the circumstances. Claudia Morales Dept of Anesthesiology 08/27/17 * Natali Vargas, RN - 08/26/2017 10:15 AM CDT Call from Nephrology. Stop 24 hour urine collect. Need urine specimen sent for UA, Protein/Cr, and Microalb/Cr which was supposed to be processed yesterday. Advised pt already off floor to pre/post for surgery today. Will pass along to DOG DAY CARE ATTENDANT. Oneil, DOG DAY CARE ATTENDANT called for report. Advised 24 hr urine collect is stopped and need him to send urine for UA, Protein/Cr, and Microalb/Cr as soon as possible. * Rylee Poon - 08/26/2017 9:57 AM CDT PHYSICAL THERAPY NOTE Patient was unavailable for physical therapy (off unit for test/procedure). Physical therapy will continue to follow and provide intervention as indicated. Therapist: Rylee Poon Date: 08/26/2017 * Jamil Madrid - 08/26/2017 8:34 AM CDT Formatting of this note may be different from the original. S: No acute events. Pain well-controlled on current regimen. Patient tolerating current diet. Nausea/Vomiting. O: Blood pressure 165/80, pulse 74, temperature 36.9 C (98.4 F), height 167.6 cm (66"), weight 79.4 kg (175 lb), SpO2 96 %. General: AAOx3, NAD Cardiac: RRR Respirations: Unlabored Abdomen: soft, nt Extremities: right lower extremity compartments soft, wiggles toes, + ankle pf df, SILT, distal cap refill < 2 sec dressings: c/d/i. splint. No results for input(s): PTT, INR in the last 72 hours. CBC w/Diff Lab Results Component Value Date/Time WBC 6.8 08/26/2017 04:00 AM HGB 10.0 (L) 08/26/2017 04:00 AM HCT 30.4 (L) 08/26/2017 04:00 AM PLTCT 286 08/26/2017 04:00 AM Basic Metabolic Profile Lab Results Component Value Date/Time NA 136 (L) 08/26/2017 04:00 AM K 4.3 08/26/2017 04:00 AM CL 104 08/26/2017 04:00 AM CO2 23 08/26/2017 04:00 AM GAP 9 08/26/2017 04:00 AM Lab Results Component Value Date/Time BUN 24 08/26/2017 04:00 AM CR 3.14 (H) 08/26/2017 04:00 AM GLU 81 08/26/2017 04:00 AM A/P: 72F s/p R TAA now w/post op infection s/p I&D 08/24 -PT OT -weight bearing: NWB RLE, splint -DVT ppx: asa, mobilize, scd -continue current regimen for pain control -acute blood loss anemia-hgb 10.0. monitor - Cltx swab: staph. Synovial: NGTD, OR cltx: MSSA. - Ancef/rifampin. ID consult. will need picc. - NPO@[facility]. - ONI. IVF. 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 consult nephrology -A.fib? EKG. Possible tele. Will review EKG. - N/V. diarrhea. added compazeine. C. diff neg. KUB today. dispo: continue inpt. OR today [id number] * Romy Pineda RN - 08/25/2017 5:31 PM CDT Formatting of this note may be different from the original. Patient's vital signs today are as follows: 08/25/17 0410 08/25/17 1502 08/25/17 1726 BP: 138/76 (!) 192/93 183/84 Pulse: 64 66 68 Temp: 36.4 C (97.6 F) 36.6 C (97.8 F) 36.4 C (97.6 F) SpO2: 97% 97% 96% 1730: Dr. Madrid notified by text page. No new orders at this time. Will continue to monitor. * Karina August DO - 08/25/2017 4:17 PM CDT Formatting of this note may be different from the original. Infectious Diseases Progress Note Today's Date: 08/25/2017 Admission Date: 08/22/2017 Reason for this consultation: Total ankle replacement 07/18. Now w/post op infection. Assessment: MMSA Hardware infx complicating surg wound infection on R ankle 5 wks out R total ankle arthroplasty with shin Prophecy implant, gastroc resection, revision of talonavicular joint arthrodesis w/autogenous bone graft + infuse after removal of the prior deep implant Wound erythema, drainage around 08/20 from sinus tract R medial ankle along incision; swab GS: staph - cult MSSA ONI HTN OA Recommendations: 1. DC vanc + zosyn 2. Start ancef 2g IV q8h (can renal dose for now) 3. Add rifampin given hardware in place bid po 4. 5 wks out - risk for biofilm formation on implant - if hardware is not removed in entirety will need prolonged IV course + oral antibiotic to follow 5. If temp > 38.3 send 2 sets BCs 6. Monitor cbc, cmp for antibiotic toxicity 7. Will need SL picc line for detention IV antibiotic, Consult CM to help set up RN and home infusion will follow Complexity of medical decision making is high due to the multi-system nature of the infectious disease process or potential for limb-threatening infection as well as concerns including but not limited to complexity of the patient's underlying illnesses, the identification and sensitivities of the organisms being treated, the potential for antimicrobial toxicities which are being monitored by complete blood counts and chemistry analysis between visits and the potential for drug-drug interactions, as well as concerns regarding immunologic function, and interplay of other issues. History of Present Illness Steff Azul is a 72 y.o. Female with h/o osteoporosis here w/postop ankle infection. afeb Over weekend rapid jump in creat w/elevated vanc level No f/c No cough Some nausea, no abd pain Pain in ankle, dressed postop Antimicrobial Start date End date vanc 08/22 zosyn 08/22 Estimated Creatinine Clearance: 20.4 mL/min (A) (based on SCr of 2.72 mg/dL (H)) . Medications Scheduled Meds: ALPRAZolam (XANAX) tablet 0.5 mg 0.5 mg Oral QHS amLODIPine (NORVASC) tablet 10 mg 10 mg Oral QDAY aspirin tablet 325 mg 325 mg Oral QDAY atorvastatin (LIPITOR) tablet 20 mg 20 mg Oral QDAY ceFAZolin (ANCEF) IVP 2 g 2 g Intravenous Q12H* cloNIDine (CATAPRESS) tablet 0.1 mg 0.1 mg Oral BID cyclosporine (RESTASIS) 0.05 % ophthalmic emulsion 1 drop 1 drop Both Eyes BID docusate (COLACE) capsule 100 mg 100 mg Oral BID(9-17) duloxetine DR (CYMBALTA) capsule 60 mg 60 mg Oral QHS latanoprost (XALATAN) 0.005 % ophthalmic solution 1 drop 1 drop Both Eyes QHS milk of magnesia (CONC) oral suspension 10 mL 10 mL Oral QDAY(21) nebivolol (BYSTOLIC) tablet 10 mg 10 mg Oral BID polyethylene glycol 3350 (MIRALAX) packet 17 g 1 packet Oral QDAY rifAMPin (RIFADINE) capsule 300 mg 300 mg Oral BID senna (SENOKOT) tablet 1 tablet 1 tablet Oral BID timolol maleate (TIMOPTIC) 0.5 % ophthalmic drops 1 drop 1 drop Both Eyes QDAY Continuous Infusions: sodium chloride 0.9 % infusion 100 mL/hr at 08/25/17 1059 PRN and Respiratory Meds:acetaminophen Q4H PRN OR acetaminophen Q4H PRN, bisacodyl QDAY PRN, diphenhydrAMINE Q6H PRN OR diphenhydrAMINE Q6H PRN, fentaNYL citrate PF Q1H PRN, HYDROcodone/acetaminophen Q4H PRN, ondansetron ( ZOFRAN) IV Q6H PRN, prochlorperazine Q6H PRN Physical Examination Vital Signs: Last Vital Signs: 24 Hour Range BP: 192/93 (08/25 1502) Temp: 36.6 C (97.8 F) (08/25 1502) Pulse: 66 (08/25 1502) Respirations: 16 PER MINUTE (08/25 1502) SpO2: 97 % (08/25 1502) O2 Delivery: None (Room Air) (08/25 1502) BP: (119-192)/(73-93) Temp: [36.3 C (97.4 F)-36.6 C (97.8 F)] Pulse: [64-76] Respirations: [16 PER MINUTE-18 PER MINUTE] SpO2: [96 %-99 %] O2 Delivery: None (Room Air) General appearance: alert, oriented, NAD HENT: no oral lesions/thrush Lungs: no wheezing, rhonchi, rales Heart: Regular rhythm, reg rate, with no murmur Abdomen: soft, non-tender, non-distended, normoactive bowel sounds Ext: No clubbing, cyanosis or edema - R ankle dressed postop Skin: no rash Lines: PIV Lab Review Hematology Recent Labs 08/23/17 0343 08/24/17 0347 08/25/17 0409 WBC 5.6 9.1 6.8 HGB 11.0* 11.3* 10.4* HCT 34.0* 34.5* 31.6* PLTCT 269 314 259 Chemistry Recent Labs 08/23/17 0343 08/24/17 0347 08/25/17 0409 NA 143 136* 132* K 3.8 4.0 4.5 CL 108 98 98 CO2 29 31* 27 BUN 10 20 24 CR 0.69 1.65* 2.72* GFR >60 31* 17* GLU 94 138* 127* CA 9.1 9.2 9.0 Microbiology, Radiology and other Diagnostics Review Microbiology data reviewed. Pertinent radiology images viewed. Karina August DO Pager [phone] Infectious Diseases Faculty * Giovana Reid - 08/25/2017 4:08 PM CDT Cafe Team Member attempted visit first time, patient with an RN, second time with doctor. Will try again in the morning. Please call if needed before then. The spiritual care team is available as needed, 02/09, through the [place] switchboard ([phone]). For immediate response, please page [phone]. For a response within 24 hours, please submit an order in O2 for a primary mill roller consult or call the administrative voicemail at [phone]. * Tammy Spear, PT - 08/25/2017 3:50 PM CDT PHYSICAL THERAPY NOTE Attempted to see patient this date. Patient ambulating to/from bathroom with 4WW safely per RN. Increased N&V, thus patient politely declined participation in therapy this date. Educated on bed level exercises, patient stated understanding. Will follow-up at later date Therapist: Tmamy Spear, PT Date: 08/25/2017 * Juliet Sims, RT - 08/25/2017 10:03 AM CDT Formatting of this note may be different from the original. RESPIRATORY THERAPY ADULT PROTOCOL EVALUATION RESPIRATORY PROTOCOL PLAN Medications Note: If indicated by protocol, medication orders will be placed by therapist. Procedures Oxygen/Humidity: O2 to keep SpO2 > 92% Monitoring: Discontinued;Pulse oximetry BID & PRN Comment: 2lpm O2 QHS PATIENT EVALUATION RESULTS Chart Review * Pulmonary Hx: No pulmonary diagnosis OR no smoking hx * Surgical Hx: No surgery OR last surgery > 6 weeks ago OR trach/stoma (BA) * Chest X-Ray: Clear OR not available * PFT/Oxygenation: FEV1, PEFR > 80% predicted OR physically unable to perform OR Pa02 >80 RA OR Sp02 >95% RA Patient Assessment * Respiratory Pattern: Regular pattern and rate OR good chest excursion with deep breathing * Breath Sounds: Clear and able to auscultate bases posteriorly * Cough / Sputum: Strong, effective cough OR nonproductive * Mental Status: Alert, oriented, cooperative * Activity Level: Ambulatory with assistance Priority Index Total Points: 1 Points * Priority Index: 1 PRIORITY INDEX GUIDELINES* Priority Points 1 0-9 points 2 9-18 points 3 > 18 points + Pulm Dx or Home Rx *Higher points indicate higher acuity. Therapist: Juliet Sims, RT Date: 08/25/2017 [place] AC=Airway clearance AM=Aerosolized medication BA=[place] aerosol DB&C=Deep breathe & cough FEV1=Forced expiratory volume in first second) IC=Inspiratory capacity LE=Lung expansion MDI=Metered dose inhaler Neb=Nebulizer O2=Oxygen Oxim=Oximetry PEFR=Peak expiratory flow rate CLOTHING AND TEXTILES TEACHER=Rapid Response Team * Jamil Madrid - 08/25/2017 7:53 AM CDT Formatting of this note may be different from the original. S: No acute events. Pain well-controlled on current regimen. Patient tolerating current diet. O: Blood pressure 138/76, pulse 64, temperature 36.4 C (97.6 F), height 167.6 cm (66"), weight 79.4 kg (175 lb), SpO2 97 %. General: AAOx3, NAD Cardiac: RRR Respirations: Unlabored Abdomen: soft, nt Extremities: right lower extremity compartments soft, wiggles toes, + ankle pf df, SILT, distal cap refill < 2 sec dressings: c/d/i. splint. No results for input(s): PTT, INR in the last 72 hours. CBC w/Diff Lab Results Component Value Date/Time WBC 6.8 08/25/2017 04:09 AM HGB 10.4 (L) 08/25/2017 04:09 AM HCT 31.6 (L) 08/25/2017 04:09 AM PLTCT 259 08/25/2017 04:09 AM Basic Metabolic Profile Lab Results Component Value Date/Time NA 132 (L) 08/25/2017 04:09 AM K 4.5 08/25/2017 04:09 AM CL 98 08/25/2017 04:09 AM CO2 27 08/25/2017 04:09 AM GAP 7 08/25/2017 04:09 AM Lab Results Component Value Date/Time BUN 24 08/25/2017 04:09 AM CR 2.72 (H) 08/25/2017 04:09 AM GLU 127 (H) 08/25/2017 04:09 AM A/P: 72F s/p R TAA now w/post op infection s/p I&D 08/24 -PT OT -weight bearing: NWB RLE, splint -DVT ppx: asa, mobilize, scd -continue current regimen for pain control -acute blood loss anemia-hgb 10.4. monitor - Cltx swab: staph. Synovial: NGTD, OR cltx: staph. - Vanc/Zoxyn. ID consult. will need picc. - Regular diet. - ONI. IVF. 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 consult nephrology -A.fib? EKG. Possible tele. dispo: continue [facility]pt. [id number] * Theodore Sanchez, PHARMD - 08/25/2017 7:52 AM CDT Formatting of this note may be different from the original. Pharmacy Vancomycin Note Subjective: Steff Azul is a 72 y.o. female being treated for post-op wound infection. Objective: Current Vancomycin Orders Medication Dose Route Frequency vancomycin, pharmacy to manage 1 each Service Per Pharmacy vancomycin, random dosing 1 each Intravenous Random Dosing Day of Vancomycin therapy: 3 Additional Abx: zosyn Cultures: , R foot swab; MSSA, , White Blood Cells Date/Time Value Ref Range Status 08/25/2017 0409 6.8 4.5 - 11.0 K/UL Final 08/24/2017 0347 9.1 4.5 - 11.0 K/UL Final 08/23/2017 0343 5.6 4.5 - 11.0 K/UL Final 08/22/2017 1115 6.8 4.5 - 11.0 K/UL Final Creatinine Date/Time Value Ref Range Status 08/25/2017 0409 2.72 (H) 0.4 - 1.00 MG/DL Final 08/24/2017 034 1.65 (H) 0.4 - 1.00 MG/DL Final 08/23/2017 034 0.69 0.4 - 1.00 MG/DL Final Blood Urea Nitrogen Date/Time Value Ref Range Status 08/25/2017 0409 24 7 - 25 MG/DL Final Estimated CrCl: < 20 mL/min Intake/Output Summary (Last 24 hours) at 08/25/17 0752 Last data filed at 08/25/17 0730 Gross per 24 hour Intake 3749 ml Output 300 ml Net 3449 ml UOP: 300 mL Actual Weight: 79.4 kg (175 lb) Dosing BW: 80 kg Drug Levels: Vancomycin Trough Date/Time Value Ref Range Status 08/24/2017 0347 34.1 (HH) 10.0 - 20.0 MCG/ML Final Comment: Critical Value VANC_T: Called To: ADELINA Esposito at: 06:09:34 by: NDT Read back by: ADELINA Esposito Vancomycin Random Date/Time Value Ref Range Status 08/25/2017 0409 25.1 MCG/ML Final Assessment: Target levels for this patient: 15mcg/ml. Evaluation of level(s): Vanco random level supratherapeutic at 25 mcg/mL. SCr continues to rise. Plan: 1. Hold vancomycin again today. 2. Next scheduled level(s): 08/26 with AM labs 3. Pharmacy will continue to monitor and adjust therapy as needed. Theodore Sanchez, VERO 08/25/2017 * Jamil Madrid - 08/24/2017 3:59 PM CDT Formatting of this note may be different from the original. S: No acute events. Pain well-controlled on current regimen. Patient tolerating current diet. O: Blood pressure 127/71, pulse 68, temperature 36.9 C (98.4 F), height 167.6 cm (66"), weight 79.4 kg (175 lb), SpO2 97 %. General: AAOx3, NAD Cardiac: RRR Respirations: Unlabored Abdomen: soft, nt Extremities: right lower extremity compartments soft, wiggles toes, erythematous , + ankle pf df, SILT, distal cap refill < 2 sec dressings: c/d/i. splint. No results for input(s): PTT, INR in the last 72 hours. CBC w/Diff Lab Results Component Value Date/Time WBC 9.1 08/24/2017 03:47 AM HGB 11.3 (L) 08/24/2017 03:47 AM HCT 34.5 (L) 08/24/2017 03:47 AM PLTCT 314 08/24/2017 03:47 AM Basic Metabolic Profile Lab Results Component Value Date/Time NA 136 (L) 08/24/2017 03:47 AM K 4.0 08/24/2017 03:47 AM CL 98 08/24/2017 03:47 AM CO2 31 (H) 08/24/2017 03:47 AM GAP 7 08/24/2017 03:47 AM Lab Results Component Value Date/Time BUN 20 08/24/2017 03:47 AM CR 1.65 (H) 08/24/2017 03:47 AM GLU 138 (H) 08/24/2017 03:47 AM A/P: 72F s/p R TAA now w/post op infection s/p I&D 08/24 -PT OT -weight bearing: NWB RLE, splint -DVT ppx: asa, mobilize, scd -continue current regimen for pain control -acute blood loss anemia-hgb 11.3. monitor - Cltx swab: staph. Synovial: NGTD, OR cltx: staph. - Vanc/Zoxyn. ID consult. PICC tomorrow. - Regular diet. - ONI. IVF. stop renal toxic meds. discuss switching abx w/ID. dispo: [id number] * Irma Arguello, OT - 08/24/2017 3:35 PM CDT Formatting of this note may be different from the original. OCCUPATIONAL THERAPY ASSESSMENT/DISCHARGE NOTE Patient Name: Steff Azul Room/Bed: [place] [address] Admitting Diagnosis: Wound infection Past Medical History: Diagnosis Date Arthritis Back pain Fracture On supplemental oxygen therapy Osteoarthritis Osteoporosis Subjective Pertinent Dx per Physician: PMH; TAA 07/18/17 Dx: I&D right ankle R LE Precautions: RLE Non-Weight Bearing Pain / Complaints: Patient agrees to participate in therapy;Patient premedicated Pain Location: Right;Ankle Pain Level Current: 4 Moderate pain Objective Psychosocial Status: Willing and Cooperative to Participate Home Living Type of Home: House Home Layout: One Level (ramp from garage into house, does not use without assist ) Bathroom Shower / Tub: Tub/Shower Unit Bathroom Toilet: Raised Bathroom Equipment: Tub Transfer Bench;Hand-Held Shower;Grab Bars in Shower Home Equipment: (4 wheeled walker, walker, reserves clerk) Prior Function Level Of [place]: Independent with ADLs and functional transfers;Needed assistance with homemaking Lives With: Alone Receives Help From: Coordinate Measuring Machine Programmer (cleaning person- who assists w/ laundry/dogs ) Vocational: Retired ADL's Where Assessed: Edge of Bed;In Bathroom Eating Assist: Independent Eating Deficits: No Assist Needed Grooming Assist: Stand By Assist Grooming Deficits: No Assist Needed;Wash/Dry Hands;Wash/Dry Face;Teeth Care UE Dressing Assist: Supervision Only For Lines UE Dressing Deficits: Setup;No Assist Needed LE Dressing Assist: Supervision Only For Lines LE Dressing Deficits: Setup;No Assist Needed Toileting Assist: Supervision Only For Lines Toileting Deficits: No Assist Needed Functional Transfer Assist: Supervision Only for Lines Functional Transfer Deficits: No Assist Needed Activity Tolerance Sitting Balance: (WNL) Cognition Overall Cognitive Status: WFL to Adequately Complete Self Care Tasks Safely UE Strength / Tone Overall Strength / Tone: WFL Able to Perform ADL Tasks Education Persons Educated: Patient Barriers To Learning: None Noted Topics: Home safety;ADL Compensatory Techniques Assessment No Skilled OT: Safe To Return Home;No Acute OT Goals Identified G-Codes: Self-care G8987 Current Status: 0% Impairment G8988 Goal Status: 0% Impairment G8989 Discharge Status: 0% Impairment Based on above evaluation and clinical judgment. AM-PAC 6 Clicks Daily Activity Inpatient Putting on and taking off regular lower body clothes?: None Bathing (Including washing, rinsing, drying): None Toileting, which includes using toilet, bedpan, or urinal: None Putting on and taking off regular upper body clothing: None Taking care of personal grooming such as brushing teeth: None Eating meals?: None Daily Activity Raw Score: 24 Standardized (t-scale) score: 57.54 CMS 0-100% Score: 0 CMS G Code Modifier: CH OT Discharge Recommendations: Home with family assist, Available help at home ( for chores. Plans to rent knee scooter) Therapist: Irma Arguello, OT Date: 08/24/2017 * Shavonne Lerma, PT - 08/24/2017 10:12 AM CDT PHYSICAL THERAPY ASSESSMENT MOBILITY: Mobility Progressive Mobility Level: Walk in room Distance Walked (feet): 15 ft Level of Assistance: Stand by assistance Assistive Device: Walker (uses 4 wheeled walker as knee scooter) Time Tolerated: 0-10 minutes Activity Limited By: No limitations SUBJECTIVE: Subjective Significant hospital events: 72 y.o. F s/p I&D of R ankle following TAA 07/18/17. Mental / Cognitive Status: Alert;Oriented;Cooperative Pain: Patient demonstrates no signs of pain R LE Precautions: RLE Non-Weight Bearing;Elevate;Limit TIme in Dependent Position Ambulation Assist: Independent Mobility in Community with Device Patient Owned Equipment: 4-Wheeled Walker Home Situation: Lives Alone Type of Home: House Entry Stairs: Ramp In-Home Stairs: Able to Live on One Level STRENGTH: Strength Overall Strength: No Focal Deficits Noted BED MOBILITY/TRANSFERS: Bed Mobility/Transfers Bed Mobility: Sit to Supine: Standby Assist;HOB Elevated Transfer Type: Sit to/from Stand Transfer: Assistance Level: To/From;Bed;Standby Assist Transfer: Assistive Device: 4-Wheeled Walker Transfers: Type Of Assistance: For Safety Considerations End Of Activity Status: In Bed;Instructed Patient to Request Assist with Mobility;Instructed Patient to Use Call Light GAIT: Gait Gait Distance: 15 feet Gait: Assistance Level: Standby Assist Gait: Assistive Device: 4-Wheeled Walker Comments: Patient uses four wheeled walker as a knee scooter. EDUCATION: Education Persons Educated: Patient Patient Barriers To Learning: None Noted Interventions: Repetition of Instructions Teaching Methods: Verbal Instruction Patient Response: Verbalized Understanding Topics: Plan/Goals of PT Interventions;Mobility Progression;Precautions;Safety Awareness;Importance of Increasing Activity;Positioning;Edema Control ASSESSMENT/PROGRESS: Assessment/Progress Impaired Mobility Due To: Weight Bearing Restrictions Assessment/Progress: Goals are Limited AM-PAC 6 Clicks Basic Mobility Inpatient Turning from your back to your side while in a flat bed without using bed rails : None Moving from lying on your back to sitting on the side of a flatbed without using bedrails : None Moving to and from a bed to a chair (including a wheelchair): A Little Standing up from a chair using your arms (e.g. wheelchair, or bedside chair): A Little To walk in hospital room: A Little Climbing 3-5 steps with a railing: A Lot Raw Score: 19 Standardized (T-scale) Score: 42.48 Basic Mobility CMS 0-100%: 36.99 CMS G Code Modifier for Basic Mobility: JESSENIA G-Codes: Mobility G8978 Current Status: 20-39% Impairment G8979 Goal Status: 20-39% Impairment Based on above evaluation and clinical judgment. GOALS: Goals Goal Formulation: With Patient Time For Goal Achievement: 5 days Pt Will Transfer Bed/Chair: w/ Stand By Assist Pt Will Ambulate: 31-50 Feet, w/ Walker, w/ Stand By Assist PLAN: Plan Treatment Interventions: Mobility Training Plan Frequency: 7 Days per Week PT Plan for Next Visit: increase distance ambulating to a household distance ( approx 30-50') RECOMMENDATIONS: PT Discharge Recommendations PT Discharge Recommendations: Home with Assistance Equipment Recommendations: Patient owns necessary equipment Therapist: Shavonne Lerma, PT Date: 08/24/2017 * Pantera Baker, PHARMD - 08/24/2017 7:55 AM CDT Formatting of this note may be different from the original. Pharmacy Vancomycin Note Subjective: Steff Azul is a 72 y.o. female being treated for post-op wound infection. Objective: Current Vancomycin Orders Medication Dose Route Frequency vancomycin, pharmacy to manage 1 each Service Per Pharmacy vancomycin, random dosing 1 each Intravenous Random Dosing Day of Vancomycin therapy: 2 Additional Abx: Piperacillin/Tazobactam Cultures: 08/22 synovial fluid culture NGTD, 08/22 ankle swab w/ GPC resembling staph, 08/23 tissue gram stain w/ GPC resembling staph, 08/23 tissue culture pending White Blood Cells Date/Time Value Ref Range Status 08/24/2017 0347 9.1 4.5 - 11.0 K/UL Final 08/23/2017 0343 5.6 4.5 - 11.0 K/UL Final 08/22/2017 1115 6.8 4.5 - 11.0 K/UL Final Creatinine Date/Time Value Ref Range Status 08/24/2017 034 1.65 (H) 0.4 - 1.00 MG/DL Final 08/23/2017 0343 0.69 0.4 - 1.00 MG/DL Final 08/22/2017 1115 0.81 0.4 - 1.00 MG/DL Final Blood Urea Nitrogen Date/Time Value Ref Range Status 08/24/2017 0347 20 7 - 25 MG/DL Final Estimated CrCl: Intake/Output Summary (Last 24 hours) at 08/24/17 0755 Last data filed at 08/24/17 0100 Gross per 24 hour Intake 1012 ml Output 5 ml Net 1007 ml UOP: Actual Weight: 79.4 kg (175 lb) Dosing BW: 80 kg Drug Levels: Vancomycin Trough Date/Time Value Ref Range Status 08/24/2017 0347 34.1 (HH) 10.0 - 20.0 MCG/ML Final Comment: Critical Value VANC_T: Called To: ADELINA Esposito at: 06:09:34 by: NDT Read back by: ADELINA Esposito Assessment: Target levels for this patient: 15mcg/ml. Evaluation of level(s): Vancomycin random level supratherapeutic at 34.1 mcg/mL ; development of ONI likely contributing to poor clearence of vancomycin. Plan: 1. Hold vancomycin due to decline in renal function; reassess random vancomycin level with AM labs on 08/25 and continue to monitor renal function and clinical status for improvement. WIll consider redosing on 08/25 if random level <20 mcg/ mL and patient demonstrates improvement in renal function. 2. Next scheduled level(s): 08/25 with AM labs 3. Pharmacy will continue to monitor and adjust therapy as needed. Pantera Baker, PHARMD 08/24/2017 * Luda Harmon, RN - 08/23/2017 9:36 AM CDT Patient left to pre-op on bed accompanied by transport. * Toya Rutledge, MART - 08/23/2017 7:56 AM CDT OCCUPATIONAL THERAPY NOTE OT orders received and appreciated. Per chart, patient scheduled for OR today. OT will plan to follow up postoperative day one. Therapist: PALAK Valdez/Lisa [id number] Date: 08/23/2017 * Jamil Madrid - 08/23/2017 7:23 AM CDT Formatting of this note may be different from the original. S: No acute events. Pain well-controlled on current regimen. Patient tolerating current diet. O: Blood pressure 112/62, pulse 77, temperature 36.8 C (98.3 F), height 167.6 cm (66"), weight 79.4 kg (175 lb), SpO2 96 %. General: AAOx3, NAD Cardiac: RRR Respirations: Unlabored Abdomen: soft, nt Extremities: right lower extremity compartments soft, wiggles toes, erythematous , + ankle pf df, SILT, distal cap refill < 2 sec Incisions: minimal purulent drainage No results for input(s): PTT, INR in the last 72 hours. CBC w/Diff Lab Results Component Value Date/Time WBC 5.6 08/23/2017 03:43 AM HGB 11.0 (L) 08/23/2017 03:43 AM HCT 34.0 (L) 08/23/2017 03:43 AM PLTCT 269 08/23/2017 03:43 AM Basic Metabolic Profile Lab Results Component Value Date/Time NA 143 08/23/2017 03:43 AM K 3.8 08/23/2017 03:43 AM CL 108 08/23/2017 03:43 AM CO2 29 08/23/2017 03:43 AM GAP 6 08/23/2017 03:43 AM Lab Results Component Value Date/Time BUN 10 08/23/2017 03:43 AM CR 0.69 08/23/2017 03:43 AM GLU 94 08/23/2017 03:43 AM A/P: 72F s/p R TAA now w/post op infection -PT OT -weight bearing: NWB RLE -DVT ppx: asa, mobilize, scd -continue current regimen for pain control -acute blood loss anemia-hgb 11.0. monitor - Cltx swab: staph. Synovial: NGTD - Vanc/Zoxyn. ID consult. - NPO since midnight - IVF unitl tolerating diet. dispo: OR today. consent in chart. [id number] * Shavonne Lerma, PT - 08/23/2017 7:11 AM CDT PHYSICAL THERAPY NOTE Physical therapy orders received, chart reviewed. Per EMR, patient to OR this date with orthopedics. Will follow up post-op day one to evaluate and treat as indicated. Therapist: Shavonne Lerma, PT Date: 08/23/2017 * Susie Trivedi RPH - 08/22/2017 4:52 PM CDT Formatting of this note may be different from the original. Pharmacy Vancomycin Note Subjective: Steff Azul is a 72 y.o. female being treated for post-op wound infection. Objective: Current Vancomycin Orders Medication Dose Route Frequency [START ON 08/23/2017] vancomycin (VANCOCIN) 1,000 mg in D5W 200mL IVPB ( premade) 1 g Intravenous Q12H vancomycin (VANCOCIN) 1,250 mg in dextrose 5% (D5W) IVPB 15 mg/kg Intravenous ONCE And vancomycin, pharmacy to manage 1 each Service Per Pharmacy Day of Vancomycin therapy: 1 Additional Abx: Zosyn White Blood Cells Date/Time Value Ref Range Status 08/22/2017 1115 6.8 4.5 - 11.0 K/UL Final Creatinine Date/Time Value Ref Range Status 08/22/2017 1115 0.81 0.4 - 1.00 MG/DL Final Blood Urea Nitrogen Date/Time Value Ref Range Status 08/22/2017 1115 16 7 - 25 MG/DL Final Estimated CrCl: 65-70ml/min Actual Weight: 79.4 kg (175 lb) Dosing BW: 80 kg Assessment: Target levels for this patient: 15mcg/ml. Plan: 1. Give 1250mg vancomycin loading dose then 1gm IV q12h 2. Next scheduled level(s): Prior to 4th dose 3. Pharmacy will continue to monitor and adjust therapy as needed. Susie Trivedi, [facility] 08/22/2017 * Toya Garza, RT - 08/22/2017 4:36 PM CDT Formatting of this note may be different from the original. RESPIRATORY THERAPY ADULT PROTOCOL EVALUATION RESPIRATORY PROTOCOL PLAN Medications Note: If indicated by protocol, medication orders will be placed by therapist. Procedures Oxygen/Humidity: O2 to keep SpO2 > 92% Monitoring: Pulse oximetry BID & PRN Comment: 2lpm WA QHS PATIENT EVALUATION RESULTS Chart Review * Pulmonary Hx: No pulmonary diagnosis OR no smoking hx * Surgical Hx: No surgery OR last surgery > 6 weeks ago OR trach/stoma (BA) * Chest X-Ray: Clear OR not available * PFT/Oxygenation: FEV1, PEFR < 70% OR Pa02 < 70 RA OR Sp02 <92% RA OR Fi02 > 0.21 to keep Sp02 > 92% OR < 24 hours post-op (02 & oxim) OR chronic C02 retention (C02) Patient Assessment * Respiratory Pattern: Regular pattern and rate OR good chest excursion with deep breathing * Breath Sounds: Clear and able to auscultate bases posteriorly * Cough / Sputum: Strong, effective cough OR nonproductive * Mental Status: Alert, oriented, cooperative * Activity Level: Ambulatory with assistance Priority Index Total Points: 3 Points * Priority Index: 1 PRIORITY INDEX GUIDELINES* Priority Points 1 0-9 points 2 9-18 points 3 > 18 points + Pulm Dx or Home Rx *Higher points indicate higher acuity. Therapist: Toya Garza, RT Date: 08/22/2017 [place] AC=Airway clearance AM=Aerosolized medication BA=[place] aerosol DB&C=Deep breathe & cough FEV1=Forced expiratory volume in first second) IC=Inspiratory capacity LE=Lung expansion MDI=Metered dose inhaler Neb=Nebulizer O2=Oxygen Oxim=Oximetry PEFR=Peak expiratory flow rate [employer] TEACHER=Rapid Response Team in this encounter H&P Notes * [facility] - 08/22/2017 1:59 PM CDT Formatting of this note may be different from the original. [facility] Consult Note Admission Date: 08/22/2017 Chief Complaint/Reason for Consult: R ankle swelling and redness Assessment/Plan 72F 5weeks s/p R TAA and talonavicular fusion now w/post op infection - To OR tomorrow 08/23 for I&D. Posted to OR schedule. - Admit to Ortho - Ankle aspirated at bedside under sterile conditions. - Purulent drainage from incisions sent for culture. - Start vanc/zosyn. Consult ID. [facility]F. [facility] OK for diet now. Discuss w/staff surgeons Dr. Neely and Dr. Clemons History of Present Illness: Steff Azul is a 72 y.o. female that presents to ED w/increasing R ankle swelling and erythema. Minimal pain. Total ankle arthroplasty and revision talonavicular fusion [address] Clemons , post operative course had been uncomplicated. Per patient she had purulent drainage from her wounds 2 days ago and a low grade fever yesterday. Past Medical History: Diagnosis Date Arthritis Back pain Fracture On supplemental oxygen therapy Osteoarthritis Osteoporosis Past Surgical History: Procedure Laterality Date TOTAL ANKLE ARTHROPLASTY Right 07/18/2017 ARTHROPLASTY REPLACEMENT TOTAL ANKLE ([facility] #[id number]) [facility] HARDWARE REMOVAL Right 07/18/2017 REMOVAL HARDWARE -DEEP performed by [facility]/Periop ARTHRODESIS Right 07/18/2017 REPAIR TALONAVICULAR JOINT NONUNION performed by [facility]/ Periop FOOT SURGERY HX FUSION PROCEDURE HX JOINT REPLACEMENT HX TONSILLECTOMY KNEE SURGERY LAMINECTOMY Social History Substance Use Topics Smoking status: Never Smoker Smokeless tobacco: Never Used Alcohol use No Family History Problem Relation Age of Onset Cancer Mother Osteoporosis Mother Hip Fracture Mother Collagen Disease Father Osteoporosis Father Arthritis-rheumatoid Father Allergies: Patient has no known allergies. Outpatient Prescriptions as of 08/22/2017 Medication Sig Dispense Refill acetaminophen (TYLENOL) 325 mg tablet Take 325 mg by mouth every 4 hours as needed for Pain. ALPRAZolam (XANAX) 0.5 mg tablet Take 0.5 mg by mouth at bedtime daily. 0.25 to 0.5 tab at bedtime amLODIPine (NORVASC) 10 mg tablet Take 10 mg by mouth daily. aspirin 325 mg tablet Take 325 mg by mouth daily. Take with food. atorvastatin (LIPITOR) 20 mg tablet Take 20 mg by mouth daily. BYSTOLIC 10 mg tablet Take 10 mg by mouth twice daily. CALCIUM PO Take by mouth. cloNIDine HCl (CATAPRESS) 0.1 mg tablet Take 0.1 mg by mouth twice daily. cycloSPORINE (RESTASIS) 0.05 % ophthalmic emulsion Place 1 Drop into or around eye(s) twice daily. docusate (COLACE) 100 mg capsule Take 1 capsule by mouth twice daily as needed for Constipation. [address] (CYMBALTA) 60 mg capsule Take 60 mg by mouth at bedtime daily. ergocalciferol (vitamin D2) (VITAMIN D PO) Take by mouth. FLAXSEED OIL PO Take by mouth. furosemide (LASIX) 40 mg tablet Take 40 mg by mouth every morning. ibandronate sodium (BONIVA IV) Administer through vein. lisinopril (PRINIVIL, ZESTRIL) 40 mg tablet Take 40 mg by mouth daily. LUMIGAN 0.01 % drop Apply 1 Drop to both eyes at bedtime daily. ondansetron (ZOFRAN) 4 mg tablet Take 1 tablet by mouth every 8 hours as needed for Nausea or Vomiting. 30 tablet 0 oxyCODONE (ROXICODONE, OXY-IR) 5 mg tablet Take 1-2 tablets by mouth every 3 hours as needed 90 tablet 0 potassium chloride SR (K-DUR) 20 mEq tablet Take 20 mEq by mouth daily. Take with a meal and a full glass of water. timolol (TIMOPTIC) 0.5 % ophthalmic solution Apply 1 Drop to both eyes daily. traMADol (ULTRAM) 50 mg tablet Take 1 tablet by mouth every 6 hours as needed for Pain. 75 tablet 0 Review of Systems: A comprehensive review of systems was negative. Vital Signs: Last Filed in 24 hours BP: 143/81 (08/22 1310) Temp: 36.8 C (98.2 F) (08/22 1040) Pulse: 78 (08/22 1313) Respirations: 18 PER MINUTE (08/22 1313) SpO2: 100 % (08/22 1313) O2 Delivery: None (Room Air) (08/22 1040) SpO2 Pulse: 70 (08/22 1313) Height: 167.6 cm (66") (08/22 1040) Physical Exam: Constitutional: AAOx3, NAD Eyes: eomi ENT: Oropharynx/Nasopharynx clear Respiratory: Unlabored respirations Cardiovascular: RRR Gastrointestinal: soft Skin: erythema about dorsal and medial incisions. purulent material readily expressed. Musculoskeletal: RLE: no pain w/pROM of ankle. ttp about incisions. 2+ dp. SILT. moderate swelling. Neurologic: as above Lab/Radiology/Other Diagnostic Tests: Radiology: no fx or dx on xrays. prosthesis in place. CBC w/Diff Lab Results Component Value Date/Time WBC 6.8 08/22/2017 11:15 AM HGB 11.5 (L) 08/22/2017 11:15 AM HCT 35.1 (L) 08/22/2017 11:15 AM PLTCT 286 08/22/2017 11:15 AM Basic Metabolic Profile Lab Results Component Value Date/Time NA 136 (L) 08/22/2017 11:15 AM K 4.0 08/22/2017 11:15 AM CL 103 08/22/2017 11:15 AM CO2 26 08/22/2017 11:15 AM GAP 7 08/22/2017 11:15 AM BUN 16 08/22/2017 11:15 AM CR 0.81 08/22/2017 11:15 AM GLU 104 (H) 08/22/2017 11:15 AM Coagulation Studies No results found for: PT, PTT, INR [id number] in this encounter Procedure Notes * Demian Chun - 08/27/2017 10:20 AM CDT PICC Line Insertion Procedure Note NAME:Steff Azul :1945 AGE: 72 y.o. ADMISSION DATE: 08/22/2017 DAYS ADMITTED: LOS: 5 days Procedure Details: Informed consent was obtained for the procedure. Risks of infection, blood clot, and nerve or vessel damage were discussed. Indications: Digestion Operator IV therapy Procedure: Under sterile conditions the skin at the insertion site was prepped with chlorhexadineand covered with a sterile drape. Local anesthesia was applied to the skin and subcutaneous tissues. A #4 FR, Single, PICC was inserted in theRight Basilic vein per hospital protocol. Blood return: Yes Catheter trimmed,@ 39cm inserted to 38 cm, with 1 cm external. Catheter was flushed with 20 mL NS. Patient did tolerate procedure well. Mid upper arm circumference is 30 cm.vein size 2.9mm 45% Verification:Placement confirmed with ECG., Patency verified by positive blood return., Venous location confirmed by ultrasound., Educational material/ teaching instruction given to patient and/or left at bedside. and picc tip level of CAJ per green willis and per green 3CG Line Placed by Bethany Mayfield RN/Assist by Mauricio BRAVO in this encounter Consult Notes * Rafa Jama, - 08/28/2017 8:30 AM CDT Associated Order(s): CONSULT INTERNAL MEDICINE PHYSICIAN Formatting of this note may be different from the original. General Consult Note Admission Date: 08/22/2017 LOS: 6 days Reason for Consult: multi-system disease ("Pt w/multiple complications since hospitalization. ONI, hypertension, pulmonary edema, likely MGUS. Please assist in co-management and coordinating care.") Consult type: co-management with signed orders Assessment/Plan 72 y.o. 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 ONI -08/28: Cr 3.28 <-- 08/27: Cr 3.20 <-- 08/22: Cr 0.81 -differential includes: ATN in setting of NSAID & ACEI with some degree of volume contraction vs. AIN -received vanc from 08/23-08/24, Zosyn from 08/22-08/25 for initial treatment of ankle infection -per neprohology: "no muddy brown casts in urine sediment to suggest ATN though still in DDx" -08/25: Renal US was unremarkable -UOP yesterday: 1.6ml/kg/hr, langford in place Plan >Per nephrology: avoid nephrotoxins, hold ACEI, strict I/Os >Holding Cymbalta in the setting of ONI Shortness of breath -pulmonary edema vs pneumonia -08/27: patient with shortness of breath, chest xray with findings of pulmonary edema vs. pneumonia -has received Lasix IV 40mg x 3 doses and breathing has improved -afebrile with new leukocytosis (wbc 11.4) -per ID concern for HAP or aspiration pneumonia is low (no fever, cough, tachycardia) Plan >continue IV Lasix as needed, will not schedule Lasix due to ONI Monoclonal M-spike on SPEP -likely MGUS in the setting of no lytic lesions on skeletal survey -discovered during workup of ONI -IgG 913, IgM 131, IgA 187 -Immunofixation, UPEP -skeletal survey: no evidence of lytic lesions Plan >per hematology: repeat SPEP when kidney function normalizes, possible bone marrow biopsy based on repeat SPEP MSSA hardware infection of R ankle -s/p I&D on 08/26 -ID following: Ancef 2g IV q 8 hrs & rifampin 300mg po bid --> Ancef changed to daptomycin today due to rash likely caused by Ancef Plan >per ID: tentatively 6 weeks of IV antibiotic therapy followed by 3 months po ( rifampin + doxy) >continue daptomycin 475 mg q 48hrs & rifampin 300 mg bid HTN -BPs: 152-202/74-99 -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 Carlos Jama, DO Date: 08/28/2017 Internal Medicine, Hospitalist [phone] History of Present Illness: Steff Azul is a 72 y.o. female with history baseline O2 requirement of 2L at night (has used oxygen since she had an episode of reported congestive heart failure), osteoarthritis, osteoporosis, HTN , and 07/18/17 R total ankle arthroplasty with gastroc resection, revision of talonavicular joint arthrodesis w/ autogenous bone graft fusion after removal of prior implant. Admitted to on 08/22 with post-operative ankle infection, now s/p debridement on 08/26, currently being treated with daptomycin & rifampin. Hospital course has been complicated by pulmonary edema, ONI and monoclonal M-spike on SPEP (found during workup of ONI). The patient is feeling somewhat better this afternoon. He shortness of breath has improved and she is breathing more comfortably. She denies fevers, chills, chest pain, palpitations, nausea. Has been having 3-4 loose stools per day since staring bowel regimen in the hospital. Reports poor appetite due to food tasting and smelling strangely. Past Medical History: Diagnosis Date Arthritis Back pain Fracture On supplemental oxygen therapy Osteoarthritis Osteoporosis Past Surgical History: Procedure Laterality Date TOTAL ANKLE ARTHROPLASTY Right 07/18/2017 ARTHROPLASTY REPLACEMENT TOTAL ANKLE ([facility] #[id number]) [facility] HARDWARE REMOVAL Right 07/18/2017 REMOVAL HARDWARE -DEEP performed by [facility]/Periop ARTHRODESIS Right 07/18/2017 REPAIR TALONAVICULAR JOINT NONUNION performed by [facility]/ Periop LEG DEBRIDEMENT Right 08/23/2017 DEBRIDEMENT LOWER EXTREMITY, ANKLE ARTRHROTOMY performed by [facility] OR/Periop LEG DEBRIDEMENT Right 08/26/2017 DEBRIDEMENT LOWER EXTREMITY, ankle poly exchange performed by [facility] OR/Periop FOOT SURGERY HX FUSION PROCEDURE HX JOINT REPLACEMENT HX TONSILLECTOMY KNEE SURGERY LAMINECTOMY Social History Social History Marital status: Spouse name: N/A Number of children: N/A Years of education: N/A Social History Main Topics Smoking status: Never Smoker Smokeless tobacco: Never Used Alcohol use No Drug use: No Sexual activity: Not on file Other Topics Concern Not on file Social History Narrative No narrative on file Family History Problem Relation Age of Onset Cancer Mother Osteoporosis Mother Hip Fracture Mother Collagen Disease Father Osteoporosis Father Arthritis-rheumatoid Father Allergies: Patient has no known allergies. Scheduled Meds: amLODIPine (NORVASC) tablet 10 mg 10 mg Oral QDAY aspirin tablet 325 mg 325 mg Oral QDAY atorvastatin (LIPITOR) tablet 20 mg 20 mg Oral QDAY cloNIDine (CATAPRESS) tablet 0.1 mg 0.1 mg Oral BID cyclosporine (RESTASIS) 0.05 % ophthalmic emulsion 1 drop 1 drop Both Eyes BID DAPTOmycin (CUBICIN) injection 475 mg 6 mg/kg Intravenous Q48H* docusate (COLACE) capsule 100 mg 100 mg Oral BID(9-17) duloxetine DR (CYMBALTA) capsule 60 mg 60 mg Oral QHS FUROSEMIDE 10 MG/ML IJ SOLN (Cabinet Override) NOW hydrocortisone 2.5 % topical cream Topical BID lactobacillus rhamnosus GG (CULTURELLE) 15 billion cell capsule 1 capsule 1 capsule Oral BID w/meals latanoprost (XALATAN) 0.005 % ophthalmic solution 1 drop 1 drop Both Eyes QHS milk of magnesia (CONC) oral suspension 10 mL 10 mL Oral QDAY(21) nebivolol (BYSTOLIC) tablet 10 mg 10 mg Oral BID polyethylene glycol 3350 (MIRALAX) packet 17 g 1 packet Oral QDAY rifAMPin (RIFADINE) capsule 300 mg 300 mg Oral BID senna (SENOKOT) tablet 1 tablet 1 tablet Oral BID timolol maleate (TIMOPTIC) 0.5 % ophthalmic drops 1 drop 1 drop Both Eyes QDAY Continuous Infusions: PRN and Respiratory Meds:ALPRAZolam TID PRN, bisacodyl QDAY PRN, diphenhydrAMINE Q6H PRN OR diphenhydrAMINE Q6H PRN, fentaNYL citrate PF Q1H PRN, hydrALAZINE Q6H PRN, HYDROcodone/acetaminophen Q3H PRN, ondansetron (ZOFRAN ) IV Q6H PRN, prochlorperazine Q6H PRN Review of Systems: Full 10 point review of systems negative except mild shortness of breath at times Vital Signs: Last Filed in 24 hours Vital Signs: 24 hour Range BP: 189/82 (08/28 1348) Temp: 36.6 C (97.8 F) (08/28 1348) Pulse: 75 (08/28 1348) Respirations: 18 PER MINUTE (08/28 1348) SpO2: 99 % (08/28 1348) O2 Delivery: Nasal Cannula (08/28 1348) BP: (152-202)/(74-99) Temp: [36.4 C (97.5 F)-36.8 C (98.3 F)] Pulse: [74-83] Respirations: [18 PER MINUTE-26 PER MINUTE] SpO2: [96 %-99 %] O2 Delivery: Nasal Cannula Physical Exam: General appearance: Alert, no acute distress, nasal cannula in place HENT: Mucus membranes moist, Eyes: PERRL, EOM grossly intact, conjunctiva normal Neck: Normal range of motion Lungs: Clear to auscultation bilaterally with diminished breath sounds, no wheezing, rhonchi or rales appreciated, normal work of breathing Heart: Regular rate and rhythm, no murmur Abdomen: Soft, distended, normoactive bowel sounds, slightly tender to palpation of epigastric region Ext: No edema, R lower extremity wrapped Skin: Erythematous rash present over abdomen and chest Lab/Radiology/Other Diagnostic Tests: 24-hour labs: Results for orders placed or performed during the hospital encounter of (from the past 24 hour(s)) CBC Collection Time: 08/28/17 3:04 AM Result Value Ref Range White Blood Cells 11.4 (H) 4.5 - 11.0 K/UL RBC 3.60 (L) 4.0 - 5.0 M/UL Hemoglobin 10.9 (L) 12.0 - 15.0 GM/DL Hematocrit 33.0 (L) 36 - 45 % MCV 91.7 80 - 100 FL MCH 30.2 26 - 34 PG MCHC 33.0 32.0 - 36.0 G/DL RDW 13.2 11 - 15 % Platelet Count 384 150 - 400 K/UL MPV 7.5 7 - 11 FL BASIC METABOLIC PANEL Collection Time: 08/28/17 3:04 AM Result Value Ref Range Sodium 135 (L) 137 - 147 MMOL/L Potassium 3.9 3.5 - 5.1 MMOL/L Chloride 103 98 - 110 MMOL/L CO2 23 21 - 30 MMOL/L Anion Gap 9 3 - 12 Glucose 125 (H) 70 - 100 MG/DL Blood Urea Nitrogen 28 (H) 7 - 25 MG/DL Creatinine 3.28 (H) 0.4 - 1.00 MG/DL Calcium 9.1 8.5 - 10.6 MG/DL eGFR Non 14 (L) >60 mL/min eGFR 17 (L) >60 mL/min CREATINE KINASE-CPK Collection Time: 08/28/17 3:04 AM Result Value Ref Range Creatine Kinase 34 21 - 215 U/L MANUAL DIFF Collection Time: 08/28/17 3:04 AM Result Value Ref Range Segmented Neutrophils 83 (H) 41 - 77 % Lymphocytes 6 (L) 24 - 44 % Monocytes 8 4 - 12 % Eosinophil 2 0 - 5 % Basophil 1 0 - 2 % Platelet Estimate NORMAL RBC Morph NORMAL Pertinent radiology reviewed. 08/27: CXR (shortness of breath) Impression 1. Development of bibasilar opacities, greater on the right, which may represent edema and/or pneumonia. 08/26: AP Abdomen (nausea/vomiting) IMPRESSION 1. No evidence of mechanical bowel obstruction. 08/25: US Renal/Bladder (ONI) IMPRESSION Unremarkable sonogram of the kidneys and bladder. YANIRA WEISS MD Pager: [phone] * Tyesha Fitzgerald DO - 08/27/2017 11:12 AM CDT Associated Order(s): CONSULT HEMATOLOGY PHYSICIAN Formatting of this note may be different from the original. General Consult Note Admission Date: 08/22/2017 LOS: 5 days Reason for Consult: Robe on SPEP. Pt w/infected ankle prosthesis. Now w/ONI. Nephrology following. Consult type: Opinion with orders Assessment/Plan Steff Azul is a 72 y.o. female with pmh osteoporosis, osteoarthritis, and HTN who presented with a post-op hardware infection of ankle. 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 Immunofixation, globulin levels, and UPEP are pending. In the setting of acute infection and acute kidney injury, unclear significance of slightly elevated kappa:lambda ratio. Patient has no proteinuria on dipstick. It is unlikely that patient's renal dysfunction is caused by a cast nephropathy. Assessment: 1. 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 ONI 3. Post-op MSSA infection Plan: - Please obtain skeletal survey. In the absence of suspicious findings on skeletal survey, this process most likely is MGUS - Will plan to repeat SPEP once kidney function normalizes and infection resolves - Consider bone marrow biopsy based on repeat SPEP Thank you for this consult. We will continue to follow. Patient seen and discussed with Dr. Abarca. Tyesha Fitzgerald, DO PGY-2 Pager [phone] History of Present Illness: Steff Azul is a 72 y.o. female with pmh osteoporosis, osteoarthritis, and HTN who presented with a post-op hardware infection of ankle. While admitted, she developed an ONI. Workup revealed a monoclonal M-spike on SPEP, which appears to be in gamma/beta region. Ms. Azul denies having kidney issues in the past. She has never had issues with anemia. Her calcium has historically been low and she is being treated with replacement calcium and vitamin D for her osteoporosis. She has chronic back pain and arthritis, but denies bone pain. She reports "difficult to control" hypertension, but otherwise denies other symptoms. Past Medical History: Diagnosis Date Arthritis Back pain Fracture On supplemental oxygen therapy Osteoarthritis Osteoporosis Past Surgical History: Procedure Laterality Date TOTAL ANKLE ARTHROPLASTY Right 07/18/2017 ARTHROPLASTY REPLACEMENT TOTAL ANKLE ([facility] #[id number]) performed [facility] HARDWARE REMOVAL Right 07/18/2017 REMOVAL HARDWARE -DEEP performed by [facility]/Periop ARTHRODESIS Right 07/18/2017 REPAIR TALONAVICULAR JOINT NONUNION performed by [facility]/ Periop LEG DEBRIDEMENT Right 08/23/2017 DEBRIDEMENT LOWER EXTREMITY, ANKLE ARTRHROTOMY performed by [facility]/Periop FOOT SURGERY HX FUSION PROCEDURE HX JOINT REPLACEMENT HX TONSILLECTOMY KNEE SURGERY LAMINECTOMY Social History Social History Marital status: Spouse name: N/A Number of children: N/A Years of education: N/A Social History Main Topics Smoking status: Never Smoker Smokeless tobacco: Never Used Alcohol use No Drug use: No Sexual activity: Not on file Other Topics Concern Not on file Social History Narrative No narrative on file Family history reviewed; non-contributory Allergies: Patient has no known allergies. Scheduled Meds: ALPRAZolam (XANAX) tablet 0.5 mg 0.5 mg Oral QHS amLODIPine (NORVASC) tablet 10 mg 10 mg Oral QDAY aspirin tablet 325 mg 325 mg Oral QDAY atorvastatin (LIPITOR) tablet 20 mg 20 mg Oral QDAY ceFAZolin (ANCEF) IVP 2 g 2 g Intravenous Q12H* cloNIDine (CATAPRESS) tablet 0.1 mg 0.1 mg Oral BID cyclosporine (RESTASIS) 0.05 % ophthalmic emulsion 1 drop 1 drop Both Eyes BID docusate (COLACE) capsule 100 mg 100 mg Oral BID(9-17) duloxetine DR (CYMBALTA) capsule 60 mg 60 mg Oral QHS lactobacillus rhamnosus GG (CULTURELLE) 15 billion cell capsule 1 capsule 1 capsule Oral BID w/meals latanoprost (XALATAN) 0.005 % ophthalmic solution 1 drop 1 drop Both Eyes QHS milk of magnesia (CONC) oral suspension 10 mL 10 mL Oral QDAY(21) nebivolol (BYSTOLIC) tablet 10 mg 10 mg Oral BID polyethylene glycol 3350 (MIRALAX) packet 17 g 1 packet Oral QDAY rifAMPin (RIFADINE) capsule 300 mg 300 mg Oral BID senna (SENOKOT) tablet 1 tablet 1 tablet Oral BID timolol maleate (TIMOPTIC) 0.5 % ophthalmic drops 1 drop 1 drop Both Eyes QDAY Continuous Infusions: sodium chloride 0.9 % infusion 100 mL/hr at 08/27/17 0458 PRN and Respiratory Meds:acetaminophen Q4H PRN OR acetaminophen Q4H PRN, bisacodyl QDAY PRN, diphenhydrAMINE Q6H PRN OR diphenhydrAMINE Q6H PRN, fentaNYL citrate PF Q1H PRN, hydrALAZINE Q6H PRN, HYDROcodone/acetaminophen Q4H PRN, ondansetron (ZOFRAN) IV Q6H PRN, prochlorperazine Q6H PRN Review of Systems: A 14 point review of systems was negative except for: Musculoskeletal: positive for stiff joints and back pain Vital Signs: Last Filed in 24 hours Vital Signs: 24 hour Range BP: 181/91 (08/27 1044) Temp: 36.9 C (98.5 F) (08/27 1044) Pulse: 74 (08/27 1044) Respirations: 17 PER MINUTE (08/27 1044) SpO2: 92 % (08/27 1044) O2 Delivery: None (Room Air) (08/27 104) SpO2 Pulse: 75 (08/26 1526) BP: (152-194)/(65-94) Temp: [36.3 C (97.4 F)-37 C (98.6 F)] Pulse: [69-80] Respirations: [13 PER MINUTE-22 PER MINUTE] SpO2: [90 %-99 %] O2 Delivery: None (Room Air) Physical Exam: General: Alert, cooperative, no distress, appears stated age Head: Normocephalic, without obvious abnormality, atraumatic Neck: Supple, symmetrical, trachea midline, no adenopathy, thyroid: no enlargement/tenderness/nodules Lungs: Clear to auscultation bilaterally Heart: Regular rate and rhythm, S1, S2 normal, no murmur, click rub or gallop Abdomen: Soft, non-tender. Bowel sounds normal. No masses. No organomegaly. Extremities: Right lower extremity in HANDY and wrapping c/d/i. Lab/Radiology/Other Diagnostic Tests: 24-hour labs: Results for orders placed or performed during the hospital encounter of (from the past 24 hour(s)) CULTURE-ANAEROBIC Collection Time: 08/26/17 12:09 PM Result Value Ref Range Battery Name ANAEROBE CULTURE Specimen Description TISSUE LEFT ANKLE Special Requests NONE Culture Report Status CULTURE-WOUND/TISSUE/FLUID(AEROBIC ONLY)W/SENSITIVITY Collection Time: 08/26/17 12:09 PM Result Value Ref Range Battery Name ROUTINE CULTURE Specimen Description TISSUE LEFT ANKLE Special Requests NONE Direct Gram Stain RARE NEUTROPHILS NO ORGANISMS SEEN Culture Report Status GRAM STAIN Collection Time: 08/26/17 12:09 PM Result Value Ref Range Battery Name GRAM STAIN Specimen Description TISSUE LEFT ANKLE Special Requests NONE Gram Stain RARE NEUTROPHILS NO ORGANISMS SEEN Report Status FINAL 08/26/2017 CULTURE-FUNGAL,OTHER Collection Time: 08/26/17 12:09 PM Result Value Ref Range Battery Name FUNGUS CULTURE Specimen Description TISSUE LEFT ANKLE Special Requests NONE Culture Report Status URINALYSIS DIPSTICK REFLEX TO CULTURE Collection Time: 08/26/17 3:51 PM Result Value Ref Range Color,UA YELLOW Turbidity,UA CLEAR CLEAR-CLEAR Specific [place]-Urine 1.005 1.003 - 1.035 pH,UA 5.0 5.0 - 8.0 Protein,UA NEG NEG-NEG Glucose,UA NEG NEG-NEG Ketones,UA NEG NEG-NEG Bilirubin,UA NEG NEG-NEG Blood,UA 1+ (A) NEG-NEG Urobilinogen,UA NORMAL NORM-NORMAL Nitrite,UA NEG NEG-NEG Leukocytes,UA NEG NEG-NEG Urine Ascorbic Acid, UA NEG NEG-NEG URINALYSIS MICROSCOPIC REFLEX TO CULTURE Collection Time: 08/26/17 3:51 PM Result Value Ref Range WBCs,UA 0-2 0 - 2 /HPF RBCs,UA 10-20 0 - 3 /HPF Comment,UA Urine submitted for reflex culture if criteria are met:WBC>10, positive nitrite and/or >=1+ leukocyte esterase. If quantity is not sufficient, an addendum will follow. MucousUA TRACE PROTEIN/CR RATIO,UR RAN Collection Time: 08/26/17 3:51 PM Result Value Ref Range Protein, Random 21 MG/DL Creatinine, Random 53 MG/DL Protein/CR ratio 0.4 MICROALB/CR RATIO-URINE RANDOM Collection Time: 08/26/17 3:51 PM Result Value Ref Range Microalbumin, Random 77.2 (H) <19 MCG/ML Creatinine, Random 53 MG/DL Microalbumin/CR ratio Urine 145.66 (H) <30 ug/mg CBC Collection Time: 08/27/17 3:43 AM Result Value Ref Range White Blood Cells 8.4 4.5 - 11.0 K/UL RBC 3.49 (L) 4.0 - 5.0 M/UL Hemoglobin 10.6 (L) 12.0 - 15.0 GM/DL Hematocrit 31.7 (L) 36 - 45 % MCV 90.8 80 - 100 FL MCH 30.2 26 - 34 PG MCHC 33.3 32.0 - 36.0 G/DL RDW 12.7 11 - 15 % Platelet Count 288 150 - 400 K/UL MPV 7.6 7 - 11 FL BASIC METABOLIC PANEL Collection Time: 08/27/17 3:43 AM Result Value Ref Range Sodium 136 (L) 137 - 147 MMOL/L Potassium 4.3 3.5 - 5.1 MMOL/L Chloride 106 98 - 110 MMOL/L CO2 21 21 - 30 MMOL/L Anion Gap 9 3 - 12 Glucose 113 (H) 70 - 100 MG/DL Blood Urea Nitrogen 25 7 - 25 MG/DL Creatinine 3.20 (H) 0.4 - 1.00 MG/DL Calcium 8.8 8.5 - 10.6 MG/DL eGFR Non 14 (L) >60 mL/min eGFR 17 (L) >60 mL/min No pertinent radiology. Tyesha Fitzgerald DO Pager [phone] Associated attestation - Parviz Abarca MD - 08/28/2017 1:16 PM CDT I have seen, examined, discussed and participated in all medical decision making regarding Ms Azul's care. I agree with Dr Fitzgerald's note with the following additions and/or exceptions: 72-year-old female with recent right total ankle replacement that is been complicated by MSSA infection. She was initiated on vancomycin and developed acute renal failure during hospitalization. In the course of her workup, monoclonal proteins were sent and showed a very small level of monoclonal protein. We were consulted to comment on whether this is contributing to her renal failure. Recommend: 1. I think it is highly unlikely that her small level monoclonal protein is significantly contributing to her renal failure process and believe it is probably associated with either vancomycin or ATN from her infection. However, I do think that is important to exclude this and ensure that she does not have a cast nephropathy that may be underlying these acute issues. 2. 24-hour urine testing has been appropriately sent by nephrology and we will follow this up with interest. 3. Check serum immunofixation 4. Check skeletal survey 5. Depending on the above, we may consider a bone marrow biopsy, but I do not think that one is indicated right now based on the results that I am seeing. 6. Continue supportive care and antibiotics as appropriate. I have discussed the diagnosis and treatment plan with the patient and she expresses understanding and wishes to proceed. * Glo Vidal MD - 08/25/2017 1:40 PM CDT Associated Order(s): CONSULT NEPHROLOGY PHYSICIAN Formatting of this note may be different from the original. General Consult Note Admission Date: 08/22/2017 LOS: 3 days Reason for Consult: Asked by Dr. Clemons to see 72 yo WF with increased Cr. 08/22/2017 10:34 AM Wound infection [T14.8XXA, L08.9] Consult type: Opinion with orders Assessment/Plan ONI--DDx incl ATN in setting of NSAID + ACEI use, with some degree of vol contraction vs obstruction (functional or anatomic) vs AIN. UO very low yest, if accurate collection. --GLADYS with Dopplers --avoid nephrotoxins --agree with holding ACEI --UA, prot/cr, alb/cr --PVR bladder scan to ensure she's emptying bladder --strict ins/outs hypoNa--mild, present on adm. --follow closely --may need fluid restriction --check urine Na, Cr, osmol, serum osmol--add this onto bld in lab from this am HTN--pt on mult drugs. BP well-controlled at this time, in spite of being off ACEI --GLADYS with Dopplers to r/o DEYSI Anemia--present since July 2017, earliest value in O2. Would r/o mult myeloma, given anemia and severe ONI --check SPEP/PARMJIT, UPEP/PARMJIT, FLC Possible dx/px/tx options d/w pt at great length; all questions answered. She does not need acute HD at this time. Will follow sxs, UO, labs closely. Addendum--urinary sediment shows 1-4 WBCs/hpf; no casts History of Present Illness: Steff Azul is a 72 y.o. female. 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 Underwent I&D 08/24. Course complic by afib with RVR in periop period that spont resolved. Pt notes liquid stools since surg that she attributes to stool softeners used to avoid constip that she states always occurs with narc. C/o mild nausea for past couple of days. Pt states she feels like she's not emptying bladder properly S/p right total ankle arthroplasty with Shin Prophecy implant 07/18/17. Pt knows of no kidney dis, proteinuria, hematuria. Has not had w/u for secondary HTN to her knowledge. Took daily NSAID X 20 yrs for jt pain. Stopped 2 yrs ago as it caused increased BP. Has taken aceta 3000 mg/d since then. Is not aware of anemia. Cr-0.8 on adm 08/22 (c/w 0.8 on 06/30/17 and 0.6 on 07/19/17). Cr-1.7 yest am and 2.7 this am. Review of MAR shows that pt received ketorolac 08/23 and 08/24, and ACEI 08/23. Pt has received mult antibx since adm. Review of VS since adm does not show hypotension. Meds on adm incl lisin and lasix. Current meds incl vanco Review of Care Everywhere shows: 10/31/15 Cr-0.7 1.010/8; no bld, prot Hg-13.2 11/14/15 Cr-1.1 Hg-12.7 06/30/17 Cr-0.8 Alb-4.2 Hg-13.2 PMH incl HTN, MVP, OA, sjogren's X 10 yrs, osteoporosis for which she takes bisphos every 3-4 mo. Is followed by outside rheum in [place]. Past Medical History: Diagnosis Date Arthritis Back pain Fracture On supplemental oxygen therapy Osteoarthritis Osteoporosis Past Surgical History: Procedure Laterality Date TOTAL ANKLE ARTHROPLASTY Right 07/18/2017 ARTHROPLASTY REPLACEMENT TOTAL ANKLE ([facility] #10579) [facility] HARDWARE REMOVAL Right 07/18/2017 REMOVAL HARDWARE -DEEP performed by [facility] ARTHRODESIS Right 07/18/2017 REPAIR TALONAVICULAR JOINT NONUNION performed by [facility]/ Periop FOOT SURGERY HX FUSION PROCEDURE HX JOINT REPLACEMENT HX TONSILLECTOMY KNEE SURGERY LAMINECTOMY Social History Substance Use Topics Smoking status: Never Smoker Smokeless tobacco: Never Used Alcohol use No Family History Problem Relation Age of Onset Cancer Mother Osteoporosis Mother Hip Fracture Mother Collagen Disease Father Osteoporosis Father Arthritis-rheumatoid Father Allergies: Patient has no known allergies. Scheduled Meds: ALPRAZolam (XANAX) tablet 0.5 mg 0.5 mg Oral QHS amLODIPine (NORVASC) tablet 10 mg 10 mg Oral QDAY aspirin tablet 325 mg 325 mg Oral QDAY atorvastatin (LIPITOR) tablet 20 mg 20 mg Oral QDAY ceFAZolin (ANCEF) IVP 2 g 2 g Intravenous Q12H* cloNIDine (CATAPRESS) tablet 0.1 mg 0.1 mg Oral BID cyclosporine (RESTASIS) 0.05 % ophthalmic emulsion 1 drop 1 drop Both Eyes BID docusate (COLACE) capsule 100 mg 100 mg Oral BID(9-17) duloxetine DR (CYMBALTA) capsule 60 mg 60 mg Oral QHS latanoprost (XALATAN) 0.005 % ophthalmic solution 1 drop 1 drop Both Eyes QHS milk of magnesia (CONC) oral suspension 10 mL 10 mL Oral QDAY(21) nebivolol (BYSTOLIC) tablet 10 mg 10 mg Oral BID polyethylene glycol 3350 (MIRALAX) packet 17 g 1 packet Oral QDAY rifAMPin (RIFADINE) capsule 300 mg 300 mg Oral BID senna (SENOKOT) tablet 1 tablet 1 tablet Oral BID timolol maleate (TIMOPTIC) 0.5 % ophthalmic drops 1 drop 1 drop Both Eyes QDAY Continuous Infusions: sodium chloride 0.9 % infusion 100 mL/hr at 08/25/17 1059 PRN and Respiratory Meds:acetaminophen Q4H PRN OR acetaminophen Q4H PRN, bisacodyl QDAY PRN, diphenhydrAMINE Q6H PRN OR diphenhydrAMINE Q6H PRN, fentaNYL citrate PF Q1H PRN, HYDROcodone/acetaminophen Q4H PRN, ondansetron ( ZOFRAN) IV Q6H PRN, prochlorperazine Q6H PRN Current Discharge Medication List CONTINUE these medications which have NOT CHANGED Details acetaminophen (TYLENOL) 500 mg tablet Take 1,000 [...] mouth twice daily as needed for Constipation. Qty: 180 capsule, Refills: [address] (CYMBALTA) 30 mg capsule Take [...] every 6 hours as needed for Pain. Qty: 75 tablet, Refills: 0 STOP taking these medications CALCIUM PO Comments: Reason for Stopping: ergocalciferol (vitamin D2) (VITAMIN D PO) Comments: Reason for Stopping: ondansetron (ZOFRAN) 4 mg tablet Comments: Reason for Stopping: oxyCODONE (ROXICODONE, OXY-IR) 5 mg tablet Comments: Reason for Stopping: Review of Systems: 14 pt ROS neg except as follows: Had recent echo--thinks she may have been told of "early" LVH States she bruises easily. Stopped daily ASA a mo prior to surg. Has dry eyes for which she takes CSA gtt Uses O2 2l every night for desat to low 80s%. Has been eval by sleep MD. No BASSEM. etiol of noct desat unclear per pt. Has mild rosacea No orth. occas mild LE edema with prolonged standing. 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 No tob, alcohol, illegal drugs. Vital Signs: Last Filed in 24 hours Vital Signs: 24 hour Range BP: 138/76 (08/25 409) Temp: 36.4 C (97.6 F) (08/25 409) Pulse: 64 (08/25 409) Respirations: 16 PER MINUTE (08/25 409) SpO2: 97 % (08/25 409) O2 Delivery: None (Room Air) (08/26 919) BP: (119-167)/(71-85) Temp: [36.3 C (97.4 F)-36.9 C (98.4 F)] Pulse: [64-76] Respirations: [16 PER MINUTE-18 PER MINUTE] SpO2: [96 %-99 %] O2 Delivery: None (Room Air) Intake/Output Summary (Last 24 hours) at 08/25/17 1340 Last data filed at 08/25/17 1249 Gross per 24 hour Intake 4353 ml Output 300 ml Net 4053 ml Physical Exam: Alert, nad; lying at 30 degrees Nc/at Anict, no injection Oral mucosa dry TMM; no cerv LA RRR no MGR Few crackles rt base, cleared with deep breathing abd s, nt Tr sacral edema No LE edema Deformity of bilat finger jts Moves all extrem Answers questions appropriately No rash on exposed skin Lab/Radiology/Other Diagnostic Tests: Results for orders placed or performed during the hospital encounter of (from the past 48 hour(s)) CBC Collection Time: 08/24/17 3:47 AM # # Low-High White Blood Cells 9.1 4.5 - 11.0 K/UL RBC 3.77 (L) 4.0 - 5.0 M/UL Hemoglobin 11.3 (L) 12.0 - 15.0 GM/DL Hematocrit 34.5 (L) 36 - 45 % MCV 91.4 80 - 100 FL MCH 30.0 26 - 34 PG MCHC 32.8 32.0 - 36.0 G/DL RDW 13.1 11 - 15 % Platelet Count 314 150 - 400 K/UL MPV 7.4 7 - 11 FL BASIC METABOLIC PANEL Collection Time: 08/24/17 3:47 AM # # Low-High Sodium 136 (L) 137 - 147 MMOL/L Potassium 4.0 3.5 - 5.1 MMOL/L Chloride 98 98 - 110 MMOL/L CO2 31 (H) 21 - 30 MMOL/L Anion Gap 7 3 - 12 Glucose 138 (H) 70 - 100 MG/DL Blood Urea Nitrogen 20 7 - 25 MG/DL Creatinine 1.65 (H) 0.4 - 1.00 MG/DL Calcium 9.2 8.5 - 10.6 MG/DL eGFR Non 31 (L) >60 mL/min eGFR 37 (L) >60 mL/min VANCOMYCIN TROUGH Collection Time: 08/24/17 3:47 AM # # Low-High Vancomycin Trough 34.1 (HH) 10.0 - 20.0 MCG/ML CBC Collection Time: 08/25/17 4:09 AM # # Low-High White Blood Cells 6.8 4.5 - 11.0 K/UL RBC 3.44 (L) 4.0 - 5.0 M/UL Hemoglobin 10.4 (L) 12.0 - 15.0 GM/DL Hematocrit 31.6 (L) 36 - 45 % MCV 91.8 80 - 100 FL MCH 30.1 26 - 34 PG MCHC 32.8 32.0 - 36.0 G/DL RDW 12.9 11 - 15 % Platelet Count 259 150 - 400 K/UL MPV 7.5 7 - 11 FL BASIC METABOLIC PANEL Collection Time: 08/25/17 4:09 AM # # Low-High Sodium 132 (L) 137 - 147 MMOL/L Potassium 4.5 3.5 - 5.1 MMOL/L Chloride 98 98 - 110 MMOL/L CO2 27 21 - 30 MMOL/L Anion Gap 7 3 - 12 Glucose 127 (H) 70 - 100 MG/DL Blood Urea Nitrogen 24 7 - 25 MG/DL Creatinine 2.72 (H) 0.4 - 1.00 MG/DL Calcium 9.0 8.5 - 10.6 MG/DL eGFR Non 17 (L) >60 mL/min eGFR 21 (L) >60 mL/min VANCOMYCIN RANDOM Collection Time: 08/25/17 4:09 AM # # Low-High Vancomycin Random 25.1 MCG/ML @KULASTRAD@ * Dima Parkinson MBBS - 08/23/2017 6:23 PM CDT Associated Order(s): CONSULT CARDIOLOGY PHYSICIAN Formatting of this note may be different from the original. CARDIOLOGY CONSULT NOTE Reason for Consult: Afib w RVR History of Present Illness Steff Azul is a 72 y.o. female with PMH sig for HTN, osteoarthritis, mitral valve prolapse who was admitted 08/22/2017 for right ankle joint hardware infection and sepsis secondary to that. She was taken to the OR for debridement today and was found to have Afib w RVR perioperatively. Pt reports that she has never been diagnosed with Afib before. She denied any history of palpitations, fluttering sensation in the heart before. She denied any hx of cardiomyopathy, alcohol use, excessive caffeine or other stimulant use , thyroid dysfunction, chronic lung disease. Currently she is not on tele monitor. EKG from admission shows normal sinus rhythm. She currently has regular rhythm. She denied any CP, SOA, orthopnea, PND, pedal edema, palpitations, syncope. ECG: Normal sinus rhythm Telemetry: Not on telemetry currently Echocardiogram: No ECHO reports available. But patient reports having one ECHO done recently by her leadlighter at [place], [place] (Dr. Rafael Tadeo at [facility]) which apparently showed normal EF. Chest X-Ray: normal Most recent stress test performed: No report available but patient reports having a recent pharmacologic MPI done which was normal Assessment & Recs Steff Azul is a 72 y.o. patient with the following problems: Active Problems: Wound infection # ? New onset Afib - no documented evidence of Afib available to us. Not on tele. EKG is NSR. Regularly regular pulse on exam. [id number] of 3. No hx of bleeding disorders. # HTN # Hx of mitral valve prolapse # Osteoarthritis Recommendations - Please obtain EKG - Please place on tele monitor - Please obtain perioperative Afib telemetry strip. - Please obtain records from her leadlighter - If any evidence of Afib on Tele, EKG, please obtain ECHO and re-consult cardiology - If there is evidence of Afib, we will review the ECHO performed and we will also start her on anticoagulation given her [id number] of 3 (HTN, Age >65 and Female sex). - We will sign off - Please call us back if any questions Thank you for allowing us to participate in the care of this patient. Discussed with Dr. Salas who agrees with plan above. LEXIE Garza CV Fellow Pager: [phone] Home Medications Prescriptions Prior to Admission Medication Sig acetaminophen (TYLENOL) 325 mg tablet Take 325 mg by mouth every 4 hours as needed for Pain. ALPRAZolam (XANAX) 0.5 mg tablet Take 0.5 mg by mouth at bedtime daily. 0.25 to 0.5 tab at bedtime amLODIPine (NORVASC) 10 mg tablet Take 10 mg by mouth daily. aspirin 325 mg tablet Take 325 mg by mouth daily. Take with food. atorvastatin (LIPITOR) 20 mg tablet Take 20 mg by mouth daily. BYSTOLIC 10 mg tablet Take 10 mg by mouth twice daily. CALCIUM PO Take by mouth. cloNIDine HCl (CATAPRESS) 0.1 mg tablet Take 0.1 mg by mouth twice daily. cycloSPORINE (RESTASIS) 0.05 % ophthalmic emulsion Place 1 Drop into or around eye(s) twice daily. docusate (COLACE) 100 mg capsule Take 1 capsule by mouth twice daily as needed for Constipation. duloxetine DR (CYMBALTA) 60 mg capsule Take 60 mg by mouth at bedtime daily. ergocalciferol (vitamin D2) (VITAMIN D PO) Take by mouth. FLAXSEED OIL PO Take by mouth. furosemide (LASIX) 40 mg tablet Take 40 mg by mouth every morning. ibandronate sodium (BONIVA IV) Administer through vein. lisinopril (PRINIVIL, ZESTRIL) 40 mg tablet Take 40 mg by mouth daily. LUMIGAN 0.01 % drop Apply 1 Drop to both eyes at bedtime daily. ondansetron (ZOFRAN) 4 mg tablet Take 1 tablet by mouth every 8 hours as needed for Nausea or Vomiting. oxyCODONE (ROXICODONE, OXY-IR) 5 mg tablet Take 1-2 tablets by mouth every 3 hours as needed potassium chloride SR (K-DUR) 20 mEq tablet Take 20 mEq by mouth daily. Take with a meal and a full glass of water. timolol (TIMOPTIC) 0.5 % ophthalmic solution Apply 1 Drop to both eyes daily. traMADol (ULTRAM) 50 mg tablet Take 1 tablet by mouth every 6 hours as needed for Pain. Current Medications Scheduled Meds: ALPRAZolam (XANAX) tablet 0.5 mg 0.5 mg Oral QHS amLODIPine (NORVASC) tablet 10 mg 10 mg Oral QDAY aspirin tablet 325 mg 325 mg Oral QDAY atorvastatin (LIPITOR) tablet 20 mg 20 mg Oral QDAY cloNIDine (CATAPRESS) tablet 0.1 mg 0.1 mg Oral BID cyclosporine (RESTASIS) 0.05 % ophthalmic emulsion 1 drop 1 drop Both Eyes BID docusate (COLACE) capsule 100 mg 100 mg Oral BID(9-17) duloxetine DR (CYMBALTA) capsule 60 mg 60 mg Oral QHS furosemide (LASIX) tablet 40 mg 40 mg Oral QAM8 latanoprost (XALATAN) 0.005 % ophthalmic solution 1 drop 1 drop Both Eyes QHS lisinopril (PRINIVIL; ZESTRIL) tablet 40 mg 40 mg Oral QDAY milk of magnesia (CONC) oral suspension 10 mL 10 mL Oral QDAY(21) nebivolol (BYSTOLIC) tablet 10 mg 10 mg Oral BID piperacillin/tazobactam (ZOSYN) 3.375 g/50 mL iso-osmotic IVPB 3.375 g Intravenous Q6H* polyethylene glycol 3350 (MIRALAX) packet 17 g 1 packet Oral QDAY potassium chloride SR (K-DUR) tablet 20 mEq 20 mEq Oral QDAY senna (SENOKOT) tablet 1 tablet 1 tablet Oral BID timolol maleate (TIMOPTIC) 0.5 % ophthalmic drops 1 drop 1 drop Both Eyes QDAY vancomycin (VANCOCIN) 1,000 mg in D5W 200mL IVPB (premade) 1 g Intravenous Q12H Continuous Infusions: lactated ringers infusion PRN and Respiratory Meds:acetaminophen Q4H PRN OR acetaminophen Q4H PRN, bisacodyl QDAY PRN, diphenhydrAMINE Q6H PRN OR diphenhydrAMINE Q6H PRN, fentaNYL citrate PF Q1H PRN, HYDROcodone/acetaminophen Q4H PRN, ondansetron ( ZOFRAN) IV Q6H PRN, [COMPLETED] vancomycin IVPB ONCE AND vancomycin, pharmacy to manage Per Pharmacy Allergies No Known Allergies Past Medical History Past Medical History: Diagnosis Date Arthritis Back pain Fracture On supplemental oxygen therapy Osteoarthritis Osteoporosis Past Surgical History Past Surgical History: Procedure Laterality Date TOTAL ANKLE ARTHROPLASTY Right 07/18/2017 ARTHROPLASTY REPLACEMENT TOTAL ANKLE ([facility] #[id number]) [facility] HARDWARE REMOVAL Right 07/18/2017 REMOVAL HARDWARE -DEEP performed by [facility] ARTHRODESIS Right 07/18/2017 REPAIR TALONAVICULAR JOINT NONUNION performed by [facility]/ Periop FOOT SURGERY HX FUSION PROCEDURE HX JOINT REPLACEMENT HX TONSILLECTOMY KNEE SURGERY LAMINECTOMY Social History Social History Social History Marital status: Spouse name: N/A Number of children: N/A Years of education: N/A Occupational History Not on file. Social History Main Topics Smoking status: Never Smoker Smokeless tobacco: Never Used Alcohol use No Drug use: No Sexual activity: Not on file Other Topics Concern Not on file Social History Narrative No narrative on file Family History Family History Problem Relation Age of Onset Cancer Mother Osteoporosis Mother Hip Fracture Mother Collagen Disease Father Osteoporosis Father Arthritis-rheumatoid Father Review of Systems 10 point ROS completed and negative except as noted per HPI Vital Signs: Most Recent Vital Signs: 24 Hour Range BP: 149/82 (07/14 1539) Temp: 36.9 C (98.4 F) (08/23 1538) Pulse: 66 (08/23 1538) Respirations: 18 PER MINUTE (08/23 1538) SpO2: 98 % (08/23 1538) O2 Delivery: None (Room Air) (08/23 1538) SpO2 Pulse: 67 (08/23 143) BP: (112-159)/(62-93) Temp: [36.6 C (97.9 F)-37.3 C (99.2 F)] Pulse: [64-78] Respirations: [7 PER MINUTE-28 PER MINUTE] SpO2: [96 %-100 %] O2 Delivery: None (Room Air) Vitals: 08/22/17 1041 Weight: 79.4 kg (175 lb) Intake/Output Summary (Last 24 hours) at 08/23/17 1824 Last data filed at 08/23/17 1542 Gross per 24 hour Intake 775 ml Output 305 ml Net 470 ml Physical Exam General Appearance: no distress Skin: warm, few ecchymoses Eyes: conjunctivae and lids normal, pupils are equal and round Neck Veins: normal JVP , neck veins are not distended Thyroid: no nodules, enlargement Cardiovascular system: S1 S2 heard, faint systolic murmur at the apex, no rub, no carotid bruit, no peripheral edema Peripheral Circulation: normal peripheral circulation Pedal Pulses: normal pedal pulses on the left leg. Right leg wrapped in postop dressings. Carotid Arteries: normal carotid upstroke bilaterally, no bruits Respiratory system: No acute distress No use of accessory muscles Normal vesicular breath sounds No added sounds Abdominal Exam: soft, non-tender, no organomegaly Neurologic Exam: alert and oriented x 3, neurological assessment grossly intact Lab/Radiology/Other Diagnostic Tests: 24-hour labs: Results for orders placed or performed during the hospital encounter of (from the past 24 hour(s)) CBC Collection Time: 08/23/17 3:43 AM Result Value Ref Range White Blood Cells 5.6 4.5 - 11.0 K/UL RBC 3.71 (L) 4.0 - 5.0 M/UL Hemoglobin 11.0 (L) 12.0 - 15.0 GM/DL Hematocrit 34.0 (L) 36 - 45 % MCV 91.8 80 - 100 FL MCH 29.8 26 - 34 PG MCHC 32.4 32.0 - 36.0 G/DL RDW 13.3 11 - 15 % Platelet Count 269 150 - 400 K/UL MPV 7.8 7 - 11 FL BASIC METABOLIC PANEL Collection Time: 08/23/17 3:43 AM Result Value Ref Range Sodium 143 137 - 147 MMOL/L Potassium 3.8 3.5 - 5.1 MMOL/L Chloride 108 98 - 110 MMOL/L CO2 29 21 - 30 MMOL/L Anion Gap 6 3 - 12 Glucose 94 70 - 100 MG/DL Blood Urea Nitrogen 10 7 - 25 MG/DL Creatinine 0.69 0.4 - 1.00 MG/DL Calcium 9.1 8.5 - 10.6 MG/DL eGFR Non >60 >60 mL/min eGFR >60 >60 mL/min CULTURE-WOUND/TISSUE/FLUID(AEROBIC ONLY)W/SENSITIVITY Collection Time: 08/23/17 12:42 PM Result Value Ref Range Battery Name ROUTINE CULTURE Specimen Description TISSUE ANKLE RIGHT Special Requests NONE Direct Gram Stain MODERATE NEUTROPHILS FEW INTRACELLULAR GRAM POSITIVE COCCI RESEMBLING STAPHYLOCOCCI Culture Report Status GRAM STAIN Collection Time: 08/23/17 12:42 PM Result Value Ref Range Battery Name GRAM STAIN Specimen Description TISSUE ANKLE RIGHT Special Requests NONE Gram Stain MODERATE NEUTROPHILS FEW INTRACELLULAR GRAM POSITIVE COCCI RESEMBLING STAPHYLOCOCCI Report Status FINAL 08/23/2017 Glucose: 94 (08/23/17 0343) Associated attestation - Mati Salas MD - 08/24/2017 1:41 PM CDT Late entry patient seen August 23, 2017. I personally interviewed and examined the patient. I have reviewed the history, physical examination, impression and plan as outlined by the resident/fellow and I concur unless otherwise noted. I saw patient. Could not find any documentation of a.fib and patient was not on telemetry when I saw her. I recommended she obtain event monitoring (48 hour Holter) when she sees her leadlighter in [place]. If she does indeed have paroxysmal a.fib after discharge (not related to post-op care) then she should initiate anticoagulation for stroke prevention. Provided counseling to patient. Call with questions we will sign off. Thank you for allowing us to participate in the shared care of your patient. Mati Salas MD Advanced Heart Failure [facility] Transplant Poke In Loop Machine Operatorsr risk management consultant Director, [facility] Primary Transplant Physician Manager Market Development, Heart Transplantation [facility] Transplantation [facility] [email or web address] * Karina August, DO - 08/23/2017 7:31 AM CDT Associated Order(s): CONSULT INFECTIOUS DISEASES PHYSICIAN Formatting of this note may be different from the original. Infectious Diseases Initial Consult Today's Date: 08/23/2017 Admission Date: 08/22/2017 Reason for this consultation: Total ankle replacement 07/18. Now w/post op infection. Assessment: Hardware complicating surg wound infection on R 5 wks out R total ankle arthroplasty with shin Prophecy implant, gastroc resection, revision of talonavicular joint arthrodesis w/autogenous bone graft + infuse after removal of the prior deep implant Wound erythema, drainage around 08/20 from sinus tract R medial ankle along incision; swab GS: staph HTN OA Recommendations: 1. Ok to cont broad spec antibiotics for now; will FU swab and OR cultures 2. 5 wks out - risk for biofilm formation on implant - if hardware is not removed in entirety will add rifampin 3. If temp > 38.3 send 2 sets BCs 4. Monitor cbc, cmp for antibiotic toxicity 5. Will need SL picc line for detention IV antibiotic, Consult CM to help set up RN and home infusion Thank you for the consultation, will follow History of Present Illness Steff Azul is a 72 y.o. Female with h/o osteoporosis here w/postop ankle infection. Ms. Azul has arthritis in R ankle. It got progressively worse and seemed related to her back and knee pain given she was walking w/abnormal gait. She had a previous attempted talonavicular joint fusion by Dr. Clemons about 2 yrs ago. 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 She had progressive arthritic changes of her ankle. She met with Dr. Clemons again and decided on surgical intervention. On 07/18 she had R total ankle arthroplasty with shin Prophecy implant, gastroc resection, revision of talonavicular joint arthrodesis w/autogenous bone graft + infuse after removal of the prior deep implant. There were no complications and she was stable for dc on 07/19. The first week healing was good w/o drianage or erythema. She had the wound dressed. A few days prior to presentation she developed new pain (none since POD wk 1) then increasing edema about the incisions w/erythema. She had purulent drainage from a small wound medially and had low grade fever w/o chills or change in " hot flashes>. She saw her local ortho and plan was to wait and come into clinic Tues but pain worsened and presented to the ED last pm. She was afeb, sl hypertensive, wbc nml. On exam "erythema about dorsal and medial incisions. purulent material readily expressed." She was started on vanc and zosyn empirically. ESR 60/CRP 7.8. Swab cult taken - GS GPC resembling staph. CXR ok, ankle film "There is no evidence of developing bony incorporation at the site of arthrodesis." She denies other recent sx and none new today. Antimicrobial Start date End date vanc 08/22 zosyn 08/22 Estimated Creatinine Clearance: 79.5 mL/min (based on SCr of 0.69 mg/dL). Past Medical History Past Medical History: Diagnosis Date Arthritis Back pain Fracture On supplemental oxygen therapy Osteoarthritis Osteoporosis Past Surgical History Past Surgical History: Procedure Laterality Date TOTAL ANKLE ARTHROPLASTY Right 07/18/2017 ARTHROPLASTY REPLACEMENT TOTAL ANKLE (PROPHECY #[id number]) performed by [facility] HARDWARE REMOVAL Right 07/18/2017 REMOVAL HARDWARE -DEEP performed by Jo[facility] OR/[facility] ARTHRODESIS Right 07/18/2017 REPAIR TALONAVICULAR JOINT NONUNION performed by [facility] MD [facility] OR/ Periop FOOT SURGERY HX FUSION PROCEDURE HX JOINT REPLACEMENT HX TONSILLECTOMY KNEE SURGERY LAMINECTOMY Social History Marital status/area of residence: single, lives alone 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 history: none recent Animal, bird exposures: 3 dogs at home TB exposure: remotely thinks she had a + skin ppc Drugs of abuse: no Social History Substance Use Topics Smoking status: Never Smoker Smokeless tobacco: Never Used Alcohol use No Family History Family History Problem Relation Age of Onset Cancer Mother Osteoporosis Mother Hip Fracture Mother Collagen Disease Father Osteoporosis Father Arthritis-rheumatoid Father Allergies No Known Allergies Review of Systems A comprehensive 14-point review of systems was negative with exception of: Ankle swelling Ankle pain Drainage from wound Fever Medications Scheduled Meds: ALPRAZolam (XANAX) tablet 0.5 mg 0.5 mg Oral QHS amLODIPine (NORVASC) tablet 10 mg 10 mg Oral QDAY aspirin tablet 325 mg 325 mg Oral QDAY atorvastatin (LIPITOR) tablet 20 mg 20 mg Oral QDAY cloNIDine (CATAPRESS) tablet 0.1 mg 0.1 mg Oral BID cyclosporine (RESTASIS) 0.05 % ophthalmic emulsion 1 drop 1 drop Both Eyes BID docusate (COLACE) capsule 100 mg 100 mg Oral BID(9-17) duloxetine DR (CYMBALTA) capsule 60 mg 60 mg Oral QHS furosemide (LASIX) tablet 40 mg 40 mg Oral QAM8 latanoprost (XALATAN) 0.005 % ophthalmic solution 1 drop 1 drop Both Eyes QHS lisinopril (PRINIVIL; ZESTRIL) tablet 40 mg 40 mg Oral QDAY milk of magnesia (CONC) oral suspension 10 mL 10 mL Oral QDAY(21) nebivolol (BYSTOLIC) tablet 10 mg 10 mg Oral BID piperacillin/tazobactam (ZOSYN) 3.375 g/50 mL iso-osmotic IVPB 3.375 g Intravenous Q6H* potassium chloride SR (K-DUR) tablet 20 mEq 20 mEq Oral QDAY timolol maleate (TIMOPTIC) 0.5 % ophthalmic drops 1 drop 1 drop Both Eyes QDAY vancomycin (VANCOCIN) 1,000 mg in D5W 200mL IVPB (premade) 1 g Intravenous Q12H Continuous Infusions: sodium chloride 0.9 % infusion 100 mL/hr at 08/22/17 1705 PRN and Respiratory Meds:acetaminophen Q4H PRN OR acetaminophen Q4H PRN, bisacodyl QDAY PRN, diphenhydrAMINE Q6H PRN OR diphenhydrAMINE Q6H PRN, fentaNYL citrate PF Q1H PRN, HYDROcodone/acetaminophen Q4H PRN, ondansetron ( ZOFRAN) IV Q6H PRN, [COMPLETED] vancomycin IVPB ONCE AND vancomycin, pharmacy to manage Per Pharmacy Physical Examination Vital Signs: Last Vital Signs: 24 Hour Range BP: 112/62 (08/23 0448) Temp: 36.8 C (98.3 F) (08/24 447) Pulse: 77 (08/24 447) Respirations: 18 PER MINUTE (08/24 447) SpO2: 96 % (08/24 447) O2 Delivery: None (Room Air) (08/24 447) SpO2 Pulse: 78 (08/22 1459) Height: 167.6 cm (66") (08/22 1041) BP: (112-159)/(61-127) Temp: [36.8 C (98.2 F)-37.3 C (99.2 F)] Pulse: [72-86] Respirations: [14 PER MINUTE-18 PER MINUTE] SpO2: [95 %-100 %] O2 Delivery: None (Room Air) General appearance: alert, oriented, NAD HENT: mucus membranes moist, no oral lesions/thrush Eyes: PERRL, EOM grossly intact, Conj nl Neck: supple, no lymphadenopathy, thyroid not palpable Lungs: no wheezing, rhonchi, rales appreciated Heart: Regular rhythm, reg rate, with no murmur, rub, gallop Abdomen: soft, non-tender, non-distended, normoactive bowel sounds, no hepatosplenomegaly, no masses Ext: No clubbing, cyanosis or edema except of R ankle - BL incisions w/erythema , edema, warmth. Lateral wound w/scab (no active drainage at this time) Skin: no rashes/lesions Lymph: no cervical adenopathy Lines: PIV Lab Review Hematology Recent Labs 08/22/17 1115 08/23/17 0343 WBC 6.8 5.6 HGB 11.5* 11.0* HCT 35.1* 34.0* PLTCT 286 269 Chemistry Recent Labs 08/22/17 1115 08/23/17 0343 NA 136* 143 K 4.0 3.8 CL 103 108 CO2 26 29 BUN 16 10 CR 0.81 0.69 GFR >60 >60 GLU 104* 94 CA 9.3 9.1 ALBUMIN 3.9 -- ALKPHOS 72 -- AST 16 -- ALT 10 -- TOTBILI 0.2* -- Microbiology, Radiology and other Diagnostics Review Microbiology data reviewed. Pertinent radiology images viewed. Impression: CXR 08/22 min basilar atelectasis Ankle film same date: IMPRESSION Findings/impression: 1. An ankle arthroplasty is in place. Alignment of the ankle arthroplasty is unchanged. There is no evidence of abnormal lucency associated with the components of the ankle arthroplasty. 2. 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 Screw and plate fixation at the site of arthrodesis is noted. There is no evidence of developing bony incorporation at the site of arthrodesis. 3. Lucency involving tuberosity calcaneus consistent with bone graft harvest site. 4. No evidence of a fracture. 5. Soft tissue swelling at the level of the ankle. Karina August DO Pager [phone] Infectious Diseases Faculty in this encounter Miscellaneous Notes * Case Mgmt DC Plan - Ellie Rahman - 09/02/2017 1:03 PM CDT Formatting of this note may be different from the original. Case Management Progress Note NAME:Steff Azul : AGE: 72 y.o. ADMISSION DATE: 08/22/2017 DAYS ADMITTED: LOS: 11 days Todays Date: 09/02/2017 Plan Anticipate pt discharging to [facility] at 1p via facility transport. Bret reviewed EMR and met with the team. Pt is medically stable to discharge to facility. Interventions ? Support Support: Pt/Family Updates re:POC or DC Plan Bret updated pt on discharge planning. ? Info or Referral ? Discharge Planning Discharge Planning: [facility] Sw received messages from [facility]- neither facility can accept pt due to cost of IV abx. Bret spoke to admissions at [facility]- pt is accepted and can be admitted today. Doctor will need to sign letter of predictability- Dr. Madrid signed- Bret faxed to SNF. Transport scheduled for 1p. Bret updated team- RN report number- [phone]. Bret tasked PRINCIPAL SYSTEM SOFTWARE ENGINEER to fax discharge orders to [phone], and to print transfer packet and place in [facility]. ? Medication Needs ? Financial ? Legal ? Other Disposition ? Expected Discharge Date Expected Discharge Date: 09/02/17 ? Transportation Does the patient need discharge transport arranged?: No Transportation Name, Phone and Availability #1: friend Does the patient use Medicaid Transportation?: No ? Next Level of Care (Acute Psych discharges only) ? Discharge Disposition Durable Medical Equipment No service has been selected for the patient. Destination - Selection Complete Service Request Status Selected Specialties Address Phone Number Fax Number DIONNA HENNY [facility] [address] [place] [address] [phone] Home Care - Selection Complete Service Request Status Selected Specialties Address Phone Number Fax Number [facility] Selected Home Health Services [address] [facility] [address] [phone] Dialysis/Infusion - Selection Complete Service Request Status Selected Specialties Address Phone Number Fax Number [facility] Selected Home Infusion and Injection Services [address] [facility] [address] [phone] Ellie Rahman LMSW *[phone] * Care Plan - Liz Lane RN - 09/02/2017 1:03 PM CDT Problem: Discharge Planning Goal: Participation in plan of care Outcome: Goal Achieved Date Met: 09/02/17 Patient participated in plan of care during hospital stay and upon discharge Goal: Knowledge regarding plan of care Outcome: Goal Achieved Date Met: 09/02/17 Patient verbalized understanding of plan of care during hospital stay and upon discharge Goal: Prepared for discharge Outcome: Goal Achieved Date Met: 09/02/17 Patient given proper materials for discharge Problem: Falls, High Risk of Goal: Absence of falls-Adult Patient Outcome: Goal Achieved Date Met: 09/02/17 Patient free of falls during hospital stay * Case Mgmt DC Josefina Em - 09/02/2017 11:59 AM CDT PRINCIPAL SYSTEM SOFTWARE ENGINEER Note Printed and placed transfer packet in pt's wallaroo, per request from [facility]. Also faxed discharge orders to the facility as requested. Josefina Crawford Photonic Laboratory Technician For additional assistance, please contact [facility]*[phone] * Case Mgmt DC Ellie Anders - 09/01/2017 12:57 PM CDT Formatting of this note may be different from the original. Case Management Progress Note NAME:Steff Azul : AGE: 72 y.o. ADMISSION DATE: 08/22/2017 DAYS ADMITTED: LOS: 10 days Todays Date: 09/01/2017 Plan Anticipate pt discharging to SNF, pending acceptance, when medically stable. Sw reviewed EMR and met with the team- Pt is going for echo, IM wants pt to stay today. Interventions ? Support Support: Pt/Family Updates re:POC or DC Plan Sw met with pt at bedside and discussed discharge planning- Sw went over Medicare.gov list and [facility] list. Pt is agreeable to going to facility in [facility] and asked that Sw send referrals to [facility], [facility], and [facility] ? Info or Referral ? Discharge Planning Discharge Planning: [facility] Sw tasked PRINCIPAL SYSTEM SOFTWARE ENGINEER to send updates to [facility]. Sw called [facility]- hospital administrator stated that they would not be able to meet pt's medical needs and cannot afford pt due to cost of daptomycin. Sw sent referrals to [facility] and [facility]. ? Medication Needs ? Financial ? Legal ? Other Disposition ? Expected Discharge Date Expected Discharge Date: 09/02/17 ? Transportation Does the patient need discharge transport arranged?: No Transportation Name, Phone and Availability #1: friend Does the patient use Medicaid Transportation?: No ? Next Level of Care (Acute Psych discharges only) ? Discharge Disposition Durable Medical Equipment No service has been selected for the patient. Destination No service has been selected for the patient. Home Care - Selection Complete Service Request Status Selected Specialties Address Phone Number Fax Number [facility] Selected Home Health Services [address] [facility] [address] [phone] Dialysis/Infusion - Selection Complete Service Request Status Selected Specialties Address Phone Number Fax Number [facility] Selected Home Infusion and Injection Services [address] [facility] [address] [phone] Ellie Rahman LMSW *[phone] * Case Mgmt DC Plan - Elsie Hoyos - 09/01/2017 10:27 AM CDT PRINCIPAL SYSTEM SOFTWARE ENGINEER note: LARY Nguyen *[phone] requesting referral updates to the following facility. [facility] Updates sent, follow up pending. Elsie Hoyos Photonic Laboratory Technician * Patient Education - Ty Noriega RN - 08/31/2017 10:21 AM CDT Steff Azul accepted education and was engaged. she verbalized understanding. The following was discussed: Medications, plan of care. Follow up should occur as needed. Continue to address: Changes to plan of care, medications. Ty Noriega RN * Case Mgmt DC Plan - Ellie Rahman - 08/29/2017 3:44 PM CDT Formatting of this note may be different from the original. Case Management Progress Note NAME:Steff Azul : AGE: 72 y.o. ADMISSION DATE: 08/22/2017 DAYS ADMITTED: LOS: 7 days Todays Date: 08/29/2017 Plan Anticipate pt discharging to [facility], when medically stable. Bret reviewed EMR and met with the team. Interventions ? Support Support: Pt/Family Updates re:POC or DC Plan Bret spoke with pt- she would like a referral sent to [facility]. ? Info or Referral ? Discharge Planning Discharge Planning: [facility] Sw tasked [facility] to send referral to [facility]. Bret spoke with admissions- they will be able to admit her on Friday. Bret spoke with team and requested that pt be seen by PT and OT on Friday. ? Medication Needs ? Financial ? Legal ? Other Disposition ? Expected Discharge Date Expected Discharge Date: 09/01/17 ? Transportation Does the patient need discharge transport arranged?: No Transportation Name, Phone and Availability #1: friend Does the patient use Medicaid Transportation?: No ? Next Level of Care (Acute Psych discharges only) ? Discharge Disposition Durable Medical Equipment No service has been selected for the patient. Destination No service has been selected for the patient. Home Care - Selection Complete Service Request Status Selected Specialties Address Phone Number Fax Number [facility] Selected Home Health Services [address] [facility] [address] [phone] Dialysis/Infusion - Selection Complete Service Request Status Selected Specialties Address Phone Number Fax Number [facility] Selected Home Infusion and Injection Services [address] [facility] [address] [phone] Ellie Rahman LMSW *[phone] * Case Mgmt DC Plan - Josefina Crawford - 08/29/2017 1:14 PM CDT PRINCIPAL SYSTEM SOFTWARE ENGINEER Note Sent an initial placement request via [employer] to the below SNF facility, per request from [facility] [phone] [facility] [place] [address] Updated [facility]. Josefina Crawford Photonic Laboratory Technician For further assistance, please contact [facility]*[phone] * Case Mgmt DC Plan - Ellie Rahman - 08/28/2017 2:03 PM CDT Formatting of this note may be different from the original. Case Management Progress Note NAME:Steff Azul : AGE: 72 y.o. ADMISSION DATE: 08/22/2017 DAYS ADMITTED: LOS: 6 days Todays Date: 08/28/2017 Plan Anticipate pt discharging to SNF or [facility] pending acceptance, when medically stable. Interventions ? Support Sw met with pt at bedside and discussed discharge planning. Sw provided pt with Medicare.gov list of SNFs near her home in [place]. Sw will follow up with pt regarding referrals tomorrow. ? Info or Referral ? Discharge Planning Discharge Planning: [facility] ? Medication Needs ? Financial ? Legal ? Other Disposition ? Expected Discharge Date Expected Discharge Date: 09/01/17 ? Transportation Does the patient need discharge transport arranged?: No Transportation Name, Phone and Availability #1: friend Does the patient use Medicaid Transportation?: No ? Next Level of Care (Acute Psych discharges only) ? Discharge Disposition Durable Medical Equipment No service has been selected for the patient. Destination No service has been selected for the patient. Home Care - Selection Complete Service Request Status Selected Specialties Address Phone Number Fax Number [facility] Selected Home Health Services [address] [facility] [id number] Dialysis/Infusion - Selection Complete Service Request Status Selected Specialties Address Phone Number Fax Number [facility] Selected Home Infusion and Injection Services [address] [facility] [address] Ellie Rahman LMSW *[phone] * Care Plan - Fatou Ward RN - 08/28/2017 1:22 AM CDT Problem: Discharge Planning Goal: Participation in plan of care Outcome: Goal Ongoing Discussed plan of care regarding fluid overload, strict I/O, and BP management. Patient willingly participating in plan. Problem: Infection, Risk of, Urinary Catheter-Associated Urinary Tract Infection Goal: Absence of urinary catheter-associated infection Outcome: Goal Ongoing All CLABSI precautions in place. * Case Mgmt DC Plan - Kristy De La Cruz RN - 08/27/2017 1:14 PM CDT Formatting of this note may be different from the original. Case Management Progress Note NAME:Steff Azul : AGE: 72 y.o. ADMISSION DATE: 08/22/2017 DAYS ADMITTED: LOS: 5 days Todays Date: 08/27/2017 Plan [facility] on DC Interventions ? Support ? Info or Referral ? Discharge Planning Discharge Planning: Home Health, Home Cwfklzud-Qexjzag-LYP-NCM spoke with Ortho team this afternoon, plan for tentative DC on Friday. NCM updated [facility]. Per [facility] is $55.94 per fill plus $15 a day for supplies. NCM will update pt as well. ? Medication Needs ? Financial ? Legal ? Other Disposition ? Expected Discharge Date Expected Discharge Date: 08/29/17 ? Transportation Does the patient need discharge transport arranged?: No Transportation Name, Phone and Availability #1: friend Does the patient use Medicaid Transportation?: No ? Next Level of Care (Acute Psych discharges only) ? Discharge Disposition Durable Medical Equipment No service has been selected for the patient. Destination No service has been selected for the patient. Home Care - Selection Complete Service Request Status Selected Specialties Address Phone Number Fax Number [facility] Selected Home Health Services [address] [facility] [address] [phone] Dialysis/Infusion - Selection Complete Service Request Status Selected Specialties Address Phone Number Fax Number [facility] Selected Home Infusion and Injection Services [address] [facility] [id number] JAS Mcmahon, brickmason helper Electronic Bench Technician 8*2 * Anesthesia Post Op Day 1 - Laurita Douglas SRNA - 08/27/2017 10:40 AM CDT Formatting of this note may be different from the original. Anesthesia Follow-Up Evaluation: Post-Procedure Day One Name: Steff Azul : 1945 Age: 72 y.o. Sex: female Procedure Date: 08/26/2017 Procedure: Procedure(s): DEBRIDEMENT LOWER EXTREMITY, ankle poly exchange Physical Assessment Height: 167.6 cm (66") Weight: 79.4 kg (175 lb) Vital Signs (Last Filed in 24 hours) BP: 173/88 (08/27 0509) Temp: 36.8 C (98.2 F) (08/27 0509) Pulse: 77 (08/27 0509) Respirations: 17 PER MINUTE (08/27 050) SpO2: 98 % (08/27 0509) O2 Delivery: None (Room Air) (08/27 050) SpO2 Pulse: 75 (08/26 1526) Patient History Allergies No Known Allergies Medications Scheduled Meds: ALPRAZolam (XANAX) tablet 0.5 mg 0.5 mg Oral QHS amLODIPine (NORVASC) tablet 10 mg 10 mg Oral QDAY aspirin tablet 325 mg 325 mg Oral QDAY atorvastatin (LIPITOR) tablet 20 mg 20 mg Oral QDAY ceFAZolin (ANCEF) IVP 2 g 2 g Intravenous Q12H* cloNIDine (CATAPRESS) tablet 0.1 mg 0.1 mg Oral BID cyclosporine (RESTASIS) 0.05 % ophthalmic emulsion 1 drop 1 drop Both Eyes BID docusate (COLACE) capsule 100 mg 100 mg Oral BID(9-17) duloxetine DR (CYMBALTA) capsule 60 mg 60 mg Oral QHS lactobacillus rhamnosus GG (CULTURELLE) 15 billion cell capsule 1 capsule 1 capsule Oral BID w/meals latanoprost (XALATAN) 0.005 % ophthalmic solution 1 drop 1 drop Both Eyes QHS milk of magnesia (CONC) oral suspension 10 mL 10 mL Oral QDAY(21) nebivolol (BYSTOLIC) tablet 10 mg 10 mg Oral BID polyethylene glycol 3350 (MIRALAX) packet 17 g 1 packet Oral QDAY rifAMPin (RIFADINE) capsule 300 mg 300 mg Oral BID senna (SENOKOT) tablet 1 tablet 1 tablet Oral BID timolol maleate (TIMOPTIC) 0.5 % ophthalmic drops 1 drop 1 drop Both Eyes QDAY Continuous Infusions: sodium chloride 0.9 % infusion 100 mL/hr at 08/27/17 0458 PRN and Respiratory Meds:acetaminophen Q4H PRN OR acetaminophen Q4H PRN, bisacodyl QDAY PRN, diphenhydrAMINE Q6H PRN OR diphenhydrAMINE Q6H PRN, fentaNYL citrate PF Q1H PRN, hydrALAZINE Q6H PRN, HYDROcodone/acetaminophen Q4H PRN, ondansetron (ZOFRAN) IV Q6H PRN, prochlorperazine Q6H PRN Diagnostic Tests Hematology: Lab Results Component Value Date HGB 10.6 08/27/2017 HCT 31.7 08/27/2017 PLTCT 288 08/27/2017 WBC 8.4 08/27/2017 NEUT 83 08/25/2017 ANC 6.40 08/25/2017 ALC 0.50 08/25/2017 BENJAMIN 10 08/25/2017 AMC 0.70 08/25/2017 EOSA 1 08/25/2017 ABC 0.00 08/25/2017 MCV 90.8 08/27/2017 MCH 30.2 08/27/2017 MCHC 33.3 08/27/2017 MPV 7.6 08/27/2017 RDW 12.7 08/27/2017 General Chemistry: Lab Results Component Value Date NA 136 08/27/2017 K 4.3 08/27/2017 CL 106 08/27/2017 CO2 21 08/27/2017 GAP 9 08/27/2017 BUN 25 08/27/2017 CR 3.20 08/27/2017 GLU 113 08/27/2017 CA 8.8 08/27/2017 ALBUMIN 3.9 08/22/2017 TOTBILI 0.2 08/22/2017 Coagulation: No results found for: PT, PTT, INR Follow-Up Assessment Patient location during evaluation: floor Anesthetic Complications: Anesthetic complications: The patient did not experience any anesthestic complications. Pain: Score: 6 Management:adequate Level of Consciousness: awake and alert Hydration:acceptable Airway Patency: patent Respiratory Status: acceptable, room air and spontaneous ventilation Cardiovascular Status:acceptable and hemodynamically stable Regional/Neuroaxial: Neurological status: block resolved Comments: Patient reports that nerve block has worn off. Pain is at 6 currently , but goes to a tolerable level after taking pain medications. * Care Plan - Fatou Ward RN - 08/27/2017 12:52 AM CDT Problem: Respiratory Impairment (Non-Ventilated Patient) Goal: Effective gas exchange Outcome: Goal Ongoing Patient on 2L O2 at night but room air during the day. Problem: Infection, Risk of, Urinary Catheter-Associated Urinary Tract Infection Goal: Absence of urinary catheter-associated infection Outcome: Goal Ongoing Patient uses castile wipes when in the bathroom. * Procedures (Immed Post or Bedside) - Jamil Madrid - 08/26/2017 1:45 PM CDT Formatting of this note may be different from the original. Brief Operative Note Name: Steff Azul is a 72 y.o. female : 1945 MRN# : [id number] DATE OF OPERATION: 08/26/2017 Date: 08/26/2017 Preoperative Dx: Wound infection [T14.8XXA, L08.9] Post-op Diagnosis * Wound infection [T14.8XXA, L08.9] Procedure(s) (LRB): DEBRIDEMENT LOWER EXTREMITY, ankle poly exchange (Right) Anesthesia Type: General Surgeon(s) and Role: * Joao Clemons MD - Primary * Jamil Madrid - Resident - Assisting Findings: no gross purulence Estimated Blood Loss: 25 ml Specimen(s) Removed/Disposition: ID Type Source Tests Collected by Time Destination A : LEFT ANKLE POLY Hardware Ankle CULTURE-ANAEROBIC, CULTURE-WOUND/TISSUE/FLUID (AEROBIC ONLY)W/SENSITIVITY, CULTURE-TB (AFB), GRAM STAIN, CULTURE-FUNGAL,OTHER Joao Clemons MD 08/26/2017 1208 B : LEFT ANKLE TISSUE Tissue Ankle CULTURE-ANAEROBIC, CULTURE-WOUND/TISSUE/FLUID (AEROBIC ONLY)W/SENSITIVITY, CULTURE-TB (AFB), GRAM STAIN, CULTURE-FUNGAL,OTHER Joao Clemons MD 08/26/2017 1202 Complications: None Implants: poly exchange. Size 8, 2+ Drains: None Disposition: PACU - stable Jamil Madrid Pager [phone] * Operative Report (Direct Entry) - Jamil Madrid - 08/26/2017 11:40 AM CDT Formatting of this note may be different from the original. OPERATIVE REPORT Name: Steff Azul is a 72 y.o. female : 1945 MRN# : [id number] DATE OF OPERATION: 08/26/2017 Surgeon(s) and Role: * Joao Clemons MD - Primary * Jamil Madrid - Resident - Assisting Preoperative Diagnosis: Right ankle periprosthetic joint infection Post-op Diagnosis same Procedure(s) (LRB): DEBRIDEMENT LOWER EXTREMITY with arthrotomy, ankle poly exchange (Right) Anesthesia Type: General Indications: 72-year-old female approximately 6 weeks out from her right total ankle arthroplasty. Presented to the ER with signs of deep infection. She was taken the operating room on Friday, August 23 for initial irrigation debridement found to have gross purulence around her implant. She returns to the operating room today for repeat irrigation and exchange of the polyethylene. Patient consented to surgery after discussion of the risks and benefits and alternative treatment options. Description and Findings of Operative Procedure: Patient was identified in the preoperative holding area by the attending surgeon. Surgical site was marked. Written surgical consent was obtained. Patient was then transported to the operating theater. General anesthesia was induced without palpitation. Patient was positioned in sloppy lateral position. Tourniquet was applied to the right lower extremity. Preoperative antibiotics were given. The right lower extremity was exsanguinated and tourniquet was inflated. Surgical timeout was performed verifying the correct patient correct limb and correct procedure. Incision was made through the previous incision. Dissection was carried down to the implant. There is no evidence of purulence. Distraction screw was then inserted into the polyethylene. An attempt was made to remove the poly with extraction device. It was noted to be very set in place. 2-0 drill bit was then used to drill down to the poly dove tails. Osteotome was then used to loosen the Rema from the tibial tray. The poly was then able to be removed with the extraction device. There is some fibrinous tissue in the back of the ankle again no gross purulence. Sharp Excisional debridement of All necrotic and nonviable tissue including muscle, fascia, bone, and subcutaneous tissue was debrided sharply with a 15 blade scalpel as well as rongeurs and curettes. This tissue was sent for culture and the poly was sent for culture as well. The area was then thoroughly irrigated with 1 L Betadine and 3 l of normal saline. The area was then soaked with irrisept to disrupt any biofilm. Then irrigated with 1 L of normal saline. At this time the new polyethylene was inserted using the insertion device. Poly size was 2+8 mm same that was removed. This fit appropriately and ankle had good range of motion and stability. The wound was then closed with 2-0 Monocryl 3-0 nylon maria isabel and cranial Dermabond. Sterile dressings were applied including Betadine soaked Adaptic 4 x 4's patient was placed in a short leg splint. Tourniquet was released. Patient was awoken from anesthesia without complication and transported to the PACU in stable conditions. Attending surgeon Dr. Clemons was present and scrubbed for all roberson aspects of this case. Postoperative recommendations: Patient will remain nonweightbearing right lower extremity patient will be admitted to the hospital for infectious disease plan as well as further management of her acute kidney injury. Estimated Blood Loss: 25 ml Specimen(s) Removed/Disposition: ID Type Source Tests Collected by Time Destination A : LEFT ANKLE POLY Hardware Ankle CULTURE-ANAEROBIC, CULTURE-WOUND/TISSUE/FLUID (AEROBIC ONLY)W/SENSITIVITY, CULTURE-TB (AFB), GRAM STAIN, CULTURE-FUNGAL,OTHER Joao Clemons MD 08/26/2017 5150 B : LEFT ANKLE TISSUE Tissue Ankle CULTURE-ANAEROBIC, CULTURE-WOUND/TISSUE/FLUID (AEROBIC ONLY)W/SENSITIVITY, CULTURE-TB (AFB), GRAM STAIN, CULTURE-FUNGAL,OTHER Joao Clemons MD 08/26/2017 [id number] [facility] Pager [phone] * Patient Education - Sydnie Valerio RN - 08/26/2017 1:55 AM CDT This RN initiated education binder and left at patient's bedside for review with day RN. * Patient Education - Romy Pineda RN - 08/25/2017 7:40 PM CDT Steff Jorge Alberto accepted education and was receptive. she verbalized understanding. The following was discussed: Plan of care, nausea management (compazine and zofran), bowel regimen, cdiff precautions Follow up should occur daily. Continue to address: plan of care Romy Pineda RN * Case Mgmt DC Plan - Irma Burris RN - 08/25/2017 3:24 PM CDT Formatting of this note may be different from the original. Case Management Progress Note NAME:Steff Azul : AGE: 72 y.o. ADMISSION DATE: 08/22/2017 DAYS ADMITTED: LOS: 3 days Todays Date: 08/25/2017 Plan -Covering RNCM met with patient at the bedside. Introduced self and explained role of CM. Patient will d/c with home IV antibiotic infusion pending ID recommendations. She has had HH in the past with [facility]. She doesn't have a preference for who provides Home IV antibiotics. -Referrals sent to [facility] and [facility]. Signed orders and clinicals will need to be faxed at d/c. Interventions ? Support ? Info or Referral ? Discharge Planning -RNCM spoke with and faxed referrals to [facility] [phone] Fax: and [facility] [phone] . ? Medication Needs ? Financial ? Legal ? Other Disposition ? Expected Discharge Date Expected Discharge Date: 08/28/17 ? Transportation Does the patient need discharge transport arranged?: No Transportation Name, Phone and Availability #1: friend Does the patient use Medicaid Transportation?: No ? Next Level of Care (Acute Psych discharges only) ? Discharge Disposition Durable Medical Equipment No service has been selected for the patient. Destination No service has been selected for the patient. Home Care No service has been selected for the patient. Dialysis/Infusion No service has been selected for the patient. Sotero Burris RN, [facility] Integrated Electronic Bench Technician *[phone] * Anesthesia Post Op Day 1 - Leonard Harvey SRNA - 08/25/2017 9:13 AM CDT Formatting of this note may be different from the original. Anesthesia Follow-Up Evaluation: Post-Procedure Day One Name: Steff Azul : 1945 Age: 72 y.o. Sex: female Procedure Date: 08/23/2017 Procedure: Procedure(s) with comments: DEBRIDEMENT LOWER EXTREMITY, ANKLE ARTRHROTOMY - CASE LENGTH 2 HOURS Physical Assessment Height: 167.6 cm (66") Weight: 79.4 kg (175 lb) Vital Signs (Last Filed in 24 hours) BP: 138/76 (08/25 409) Temp: 36.4 C (97.6 F) (08/25 409) Pulse: 64 (08/25 409) Respirations: 16 PER MINUTE (08/25 409) SpO2: 97 % (08/25 409) O2 Delivery: None (Room Air) (08/25 409) Patient History Allergies No Known Allergies Medications Scheduled Meds: ALPRAZolam (XANAX) tablet 0.5 mg 0.5 mg Oral QHS amLODIPine (NORVASC) tablet 10 mg 10 mg Oral QDAY aspirin tablet 325 mg 325 mg Oral QDAY atorvastatin (LIPITOR) tablet 20 mg 20 mg Oral QDAY ceFAZolin (ANCEF) IVP 2 g 2 g Intravenous Q8H* cloNIDine (CATAPRESS) tablet 0.1 mg 0.1 mg Oral BID cyclosporine (RESTASIS) 0.05 % ophthalmic emulsion 1 drop 1 drop Both Eyes BID docusate (COLACE) capsule 100 mg 100 mg Oral BID(9-17) duloxetine DR (CYMBALTA) capsule 60 mg 60 mg Oral QHS latanoprost (XALATAN) 0.005 % ophthalmic solution 1 drop 1 drop Both Eyes QHS milk of magnesia (CONC) oral suspension 10 mL 10 mL Oral QDAY(21) nebivolol (BYSTOLIC) tablet 10 mg 10 mg Oral BID polyethylene glycol 3350 (MIRALAX) packet 17 g 1 packet Oral QDAY rifAMPin (RIFADINE) capsule 300 mg 300 mg Oral BID senna (SENOKOT) tablet 1 tablet 1 tablet Oral BID timolol maleate (TIMOPTIC) 0.5 % ophthalmic drops 1 drop 1 drop Both Eyes QDAY vancomycin, random dosing 1 each Intravenous Random Dosing Continuous Infusions: sodium chloride 0.9 % infusion 100 mL/hr at 08/25/17 0503 PRN and Respiratory Meds:acetaminophen Q4H PRN OR acetaminophen Q4H PRN, bisacodyl QDAY PRN, diphenhydrAMINE Q6H PRN OR diphenhydrAMINE Q6H PRN, fentaNYL citrate PF Q1H PRN, HYDROcodone/acetaminophen Q4H PRN, ondansetron ( ZOFRAN) IV Q6H PRN, [COMPLETED] vancomycin IVPB ONCE AND vancomycin, pharmacy to manage Per Pharmacy Diagnostic Tests Hematology: Lab Results Component Value Date HGB 10.4 08/25/2017 HCT 31.6 08/25/2017 PLTCT 259 08/25/2017 WBC 6.8 08/25/2017 NEUT 70 08/22/2017 ANC 4.80 08/22/2017 ALC 1.00 08/22/2017 BENJAMIN 13 08/22/2017 AMC 0.80 08/22/2017 EOSA 2 08/22/2017 ABC 0.00 08/22/2017 MCV 91.8 08/25/2017 MCH 30.1 08/25/2017 MCHC 32.8 08/25/2017 MPV 7.5 08/25/2017 RDW 12.9 08/25/2017 General Chemistry: Lab Results Component Value Date NA 132 08/25/2017 K 4.5 08/25/2017 CL 98 08/25/2017 CO2 27 08/25/2017 GAP 7 08/25/2017 BUN 24 08/25/2017 CR 2.72 08/25/2017 GLU 127 08/25/2017 CA 9.0 08/25/2017 ALBUMIN 3.9 08/22/2017 TOTBILI 0.2 08/22/2017 Coagulation: No results found for: PT, PTT, INR Follow-Up Assessment Patient location during evaluation: floor Anesthetic Complications: Anesthetic complications: The patient did not experience any anesthestic complications. Pain: Score: 0 Management:adequate Level of Consciousness: awake and alert Hydration:acceptable Airway Patency: patent Respiratory Status: acceptable, spontaneous ventilation and room air Cardiovascular Status:acceptable and hemodynamically stable Regional/Neuroaxial: * Operative Report (DICTATED ONLY) - Cristobal Neely MD - 08/24/2017 6:01 PM CDT THE [address] [id number] PATIENT NAME: STEFF AZUL MR#/PT#: [id number] Page 2 OPERATIVE REPORT DATE OF OPERATION: 08/23/2017 SURGEON: Cristobal Neely MD PREOPERATIVE DIAGNOSIS: Status post right total ankle arthroplasty approximately 4 weeks from surgery complicated by postoperative infection. POSTOPERATIVE DIAGNOSIS: Same. OPERATIVE PROCEDURE: Sharp excisional debridement of infected prosthetic ankle joint. This was a sharp excisional debridement, which skin, subcutaneous tissue and and some underlying muscle and bone were sharply debrided. ANESTHESIA: General. INDICATIONS FOR OPERATIVE PROCEDURE: A 72-year-old female with the above- mentioned problem, who understood that Dr. Clemons was out of town and I was stepping in for him to washout this infected ankle joint and substantial risk were involved with this to include potential need for revision surgery, wound complications, nerve or vessel injury, altered function, altered appearance, need for revision arthroplasty, etc. DESCRIPTION AND FINDINGS OF OPERATIVE PROCEDURE: The patient's limb was marked in the preoperative holding area. She was taken back to the operative suite. Perioperative antibiotics were given according to schedule. She was prescrubbed and prepped and draped in sterile fashion. I made an incision along her old anterior ankle incision and dissected down to the extensor retinaculum, protecting the superficial peroneal nerve. We then opened the ankle capsule. Actually, the ankle capsule was already confluent with the more superficial tissues as there was a rent in the capsule and significant purulent fluid was coming out of the ankle joint. We sent this fluid for culture. We thoroughly opened up the ankle joint using rongeurs and scalpel. We sharply excised what appeared to be infected and skin, subcutaneous tissue, and some muscle. Once we had performed a thorough mechanical debridement, we realized there was a sinus tract extending over the ankle joint replacement and over the mid-footplate exiting laterally and medially, we incised the skin at this location, obtained some purulent fluid and then thoroughly cleaned out the tunnel between ankle joint replacement and this lateral dorsal wound. We then thoroughly irrigated the wound. Wound was closed with interrupted 3-0 nylon and dressed with Xeroform, 4x4s, Sof-Rol, and Handy wrap. ESTIMATED BLOOD LOSS: Minimal. SPECIMENS REMOVED: We sent tissue for culture. Cristobal Neely MD AH / MEDQ /[id number] p cc: - Cristobal Neely MD * Critical Results - Adelina Justice RN - 08/24/2017 6:16 AM CDT Critical result or procedure called (document test and value, and read back): Vanc Peak/Trough 34.1 Time MD/BURNING SUPERVISOR Notified: 06 MD/BURNING SUPERVISOR Name: Dr. Ashlee PISANO/BURNING SUPERVISOR Response/Orders Given: stop [facility] Infusion, Notify Pharmacy. * Procedures (Immed Post or Bedside) - Jamil Madrid - 08/23/2017 1:51 PM CDT Formatting of this note may be different from the original. Brief Operative Note Name: Steff Azul is a 72 y.o. female : 1945 MRN# : [id number] DATE OF OPERATION: 08/23/2017 Date: 08/23/2017 Preoperative Dx: Wound infection [T14.8XXA, L08.9] Post-op Diagnosis * Wound infection [T14.8XXA, L08.9] Procedure(s) (LRB): DEBRIDEMENT LOWER EXTREMITY, ANKLE ARTRHROTOMY (Right) Anesthesia Type: Defer to Anesthesia Surgeon(s) and Role: * Jamil Madrid - Resident - Assisting * Cristobal Neely MD - Primary * Jimy Sinclair MD - Resident - Assisting Findings: gross purulence Estimated Blood Loss: 5 ml Specimen(s) Removed/Disposition: ID Type Source Tests Collected by Time Destination 1 : RIGHT ANKLE TISSUE FOR CULTURES. Tissue Ankle CULTURE-ANAEROBIC, CULTURE- WOUND/TISSUE/FLUID(AEROBIC ONLY)W/SENSITIVITY, CULTURE-TB (AFB), GRAM STAIN, CULTURE-FUNGAL,OTHER, SURGICAL PATHOLOGY Cristobal Neely MD 2017 1242 Complications: None Implants: none Drains: None Disposition: PACU - [facility] Jamil Madrid Pager [phone] * ED Notes - Chloé Weaver RN - 08/22/2017 3:08 PM CDT Report given to YASMANI Carvalho. Pt going to RM1, room dirty at this time. * ED Notes - Mati Rojo RN - 08/22/2017 2:40 PM CDT 1440: [id number] ready. Please call Chloé for report @ [phone] * ED Notes - Chloé Weaver RN - 08/22/2017 1:02 PM CDT Received report from YASMANI Madera. * ED Notes - Cassy Diana RN - 08/22/2017 12:34 PM CDT Pt to the restroom with a steady gait. Pt awaits orthopedic surgery consult. * ED Notes - Cassy Diana RN - 08/22/2017 11:17 AM CDT X-ray at the bedside. * ED Provider Notes - Grady Truong MD - 08/22/2017 11:08 AM CDT Formatting of this note may be different from the original. Steff Azul is a 72 y.o. female. Chief Complaint: Chief Complaint Patient presents with Post-Op Problem total right ankle replacement 5 weeks ago on 07/18/17 History of Present Illness: Steff Azul is a 72-year-old female with a h/o right foot/ankle arthritis s/p right total ankle arthroplasty with Shin Prophecy implant per ortho on 07/18 who presents with right ankle swelling, redness, heat, and throbbing pain 4 days duration. She endorses moderate achy/throbbing pain located over the dorsal, and medial ankle. This is associated with a small amount of purulent drainage from the medial side of the ankle. She endorses a fever of 100.6 at home. She has not taken any medication/antibiotics for this. She has been able to bear weight on the foot and denies numbness/tingling or weakness of the RLE. History provided by: Patient deaf interpreter used: No Review of Systems: Review of Systems Constitutional: Positive for chills. Negative for fatigue and fever. HENT: Negative for congestion and rhinorrhea. Eyes: Negative for visual disturbance. Respiratory: Negative for cough and shortness of breath. Cardiovascular: Negative for chest pain and palpitations. Gastrointestinal: Negative for abdominal pain, blood in stool, constipation, diarrhea, nausea and vomiting. Genitourinary: Negative for dysuria and hematuria. Musculoskeletal: Positive for myalgias. Skin: Positive for rash. Neurological: Negative for dizziness, syncope, light-headedness and headaches. Allergies: Patient has no known allergies. Past Medical History: Past Medical History: Diagnosis Date Arthritis Back pain Fracture On supplemental oxygen therapy Osteoarthritis Osteoporosis Past Surgical History: Past Surgical History: Procedure Laterality Date TOTAL ANKLE ARTHROPLASTY Right 07/18/2017 ARTHROPLASTY REPLACEMENT TOTAL ANKLE ([facility] #[id number]) performed by Joao Clemons [facility] HARDWARE REMOVAL Right 07/18/2017 REMOVAL HARDWARE -DEEP performed by Joao Clemons MD at [facility] ARTHRODESIS Right 07/18/2017 REPAIR TALONAVICULAR JOINT NONUNION performed by Joao Clemons MD at [facility]/ Periop FOOT SURGERY HX FUSION PROCEDURE HX JOINT REPLACEMENT HX TONSILLECTOMY KNEE SURGERY LAMINECTOMY Pertinent medical/surgical history reviewed Social History: Social History Substance Use Topics Smoking status: Never Smoker Smokeless tobacco: Never Used Alcohol use No History Drug Use No Family History: Family History Problem Relation Age of Onset Cancer Mother Osteoporosis Mother Hip Fracture Mother Collagen Disease Father Osteoporosis Father Arthritis-rheumatoid Father Vitals: ED Vitals Date and Time T BP P RR SPO2P SPO2 User 08/22/17 1101 -- -- 74 14 PER MINUTE 74 97 % 08/22/17 1100 -- 125/69 74 -- 79 99 % 08/22/17 1041 36.8 C (98.2 F) 148/76 -- 16 PER MINUTE 78 98 % Physical Exam: Physical Exam Constitutional: She is oriented to person, place, and time. No distress. HENT: Head: Normocephalic and atraumatic. Neck: Normal range of motion. No JVD present. No tracheal deviation present. Cardiovascular: Normal rate, regular rhythm and normal heart sounds. Exam reveals no gallop and no friction rub. No murmur heard. Pulmonary/Chest: Effort normal and breath sounds normal. No respiratory distress. She has no wheezes. She has no rales. She exhibits no tenderness. Abdominal: Soft. Bowel sounds are normal. She exhibits no distension. There is no tenderness. There is no rebound and no guarding. Musculoskeletal: Normal range of motion. She exhibits edema and tenderness. Erythema, swelling, and tenderness to palpation over the lateral, medial, and dorsal aspect of the right ankle consistent with localized cellulitis. No obvious fluctuance or drainage. The RLE is neurovascularly intact with good sensation light touch and 2+ DP and PT pulses. Neurological: She is alert and oriented to person, place, and time. Skin: Skin is warm and dry. She is not diaphoretic. Nursing note and vitals reviewed. Laboratory Results: Results for orders placed or performed during the hospital encounter of (from the past 24 hour(s)) CBC AND DIFF Result Value Ref Range White Blood Cells 6.8 4.5 - 11.0 K/UL RBC 3.83 (L) 4.0 - 5.0 M/UL Hemoglobin 11.5 (L) 12.0 - 15.0 GM/DL Hematocrit 35.1 (L) 36 - 45 % MCV 91.7 80 - 100 FL MCH 30.0 26 - 34 PG MCHC 32.7 32.0 - 36.0 G/DL RDW 13.3 11 - 15 % Platelet Count 286 150 - 400 K/UL MPV 7.7 7 - 11 FL Neutrophils 70 41 - 77 % Lymphocytes 15 (L) 24 - 44 % Monocytes 13 (H) 4 - 12 % Eosinophils 2 0 - 5 % Basophils 0 0 - 2 % Absolute Neutrophil Count 4.80 1.8 - 7.0 K/UL Absolute Lymph Count 1.00 1.0 - 4.8 K/UL Absolute Monocyte Count 0.80 0 - 0.80 K/UL Absolute Eosinophil Count 0.10 0 - 0.45 K/UL Absolute Basophil Count 0.00 0 - 0.20 K/UL COMPREHENSIVE METABOLIC PANEL Result Value Ref Range Sodium 136 (L) 137 - 147 MMOL/L Potassium 4.0 3.5 - 5.1 MMOL/L Chloride 103 98 - 110 MMOL/L Glucose 104 (H) 70 - 100 MG/DL Blood Urea Nitrogen 16 7 - 25 MG/DL Creatinine 0.81 0.4 - 1.00 MG/DL Calcium 9.3 8.5 - 10.6 MG/DL Total Protein 7.2 6.0 - 8.0 G/DL Total Bilirubin 0.2 (L) 0.3 - 1.2 MG/DL Albumin 3.9 3.5 - 5.0 G/DL Alk Phosphatase 72 25 - 110 U/L AST (SGOT) 16 7 - 40 U/L CO2 26 21 - 30 MMOL/L ALT (SGPT) 10 7 - 56 U/L Anion Gap 7 3 - 12 eGFR Non >60 >60 mL/min eGFR >60 >60 mL/min SED RATE Result Value Ref Range Sed Rate -ESR 60 (H) 0 - 30 MM/HR C REACTIVE PROTEIN (CRP) Result Value Ref Range C-Reactive Protein 7.87 (H) <1.0 MG/DL POC LACTATE Result Value Ref Range LACTIC ACID POC 0.8 0.5 - 2.0 MMOL/L Radiology Interpretation: CHEST SINGLE VIEW Preliminary Result No acute cardiopulmonary abnormality. Approved by Gabriel Umanzor M.D. on 08/23/2017 9:18 AM ANKLE MIN 3 VIEWS RIGHT ED Interpretation S/p total ankle with soft tissue swelling Final Result Findings/impression: 1. An ankle arthroplasty is in place. Alignment of the ankle arthroplasty is unchanged. There is no evidence of abnormal lucency associated with the components of the ankle arthroplasty. 2. 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 Screw and plate fixation at the site of arthrodesis is noted. There is no evidence of developing bony incorporation at the site of arthrodesis. 3. Lucency involving tuberosity calcaneus consistent with bone graft harvest site. 4. No evidence of a fracture. 5. Soft tissue swelling at the level of the ankle. Finalized by Pavel Quintanilla M.D. on 08/22/2017 1:21 PM. Dictated by Pavel Quintanilla M.D. on 08/22/2017 1:15 PM. EKG: N/a ED Course: 72-year-old female presenting with swelling, erythema, calor, and tenderness of the right ankle x4 days s/p total ankle repair per orthopedics on 07/18. Initial presentation revealed a nondistressed female with vital signs within normal limits. Exam showed erythema, swelling, and color of the right lateral, dorsal, and medial ankle consistent with cellulitis. There is no obvious purulent drainage or fluctuance. The RLE was neurovascularly intact. Differential diagnosis includes cellulitis vs. abscess vs. osteomyelitis vs. hardware infection. CBC showed baseline anemia with a hemoglobin of 11.5 and no leukocytosis. Inflammatory markers were elevated with an ESR of 16 and a CRP of 7.8. CMP showed mild hyponatremia at 136, but was otherwise unremarkable. Lactate was normal. Plain film of the right ankle showed no evidence of fracture or hardware displacement. No obvious findings of osteomyelitis. Orthopedics was consulted and recommended admission for IV antibiotics with intervention in the OR tomorrow. MDM Reviewed: previous chart, nursing note and vitals Reviewed previous: labs Interpretation: labs and x-ray Consults: orthopedics Facility Administered Meds: Facility-Administered Medications as of 08/23/2017 Medication Last Dose [APR Hold] acetaminophen (TYLENOL) tablet 650 mg 650 mg at 08/22/17 1737 Or [APR Hold] acetaminophen (TYLENOL) rectal suppository 650 mg [APR Hold] ALPRAZolam (XANAX) tablet 0.5 mg 0.5 mg at 08/22/172141 [APR Hold] amLODIPine (NORVASC) tablet 10 mg 10 mg at 08/23/17928 [APR Hold] aspirin tablet 325 mg 325 mg at 08/23/17928 [APR Hold] atorvastatin (LIPITOR) tablet 20 mg 20 mg at 08/23/17928 [APR Hold] bisacodyl (DULCOLAX) rectal suppository 10 mg [APR Hold] cloNIDine (CATAPRESS) tablet 0.1 mg 0.1 mg at 08/23/17928 [APR Hold] cyclosporine (RESTASIS) 0.05 % ophthalmic emulsion 1 drop 1 drop at 08/23/17806 [APR Hold] diphenhydrAMINE (BENADRYL) capsule 25 mg Or [APR Hold] diphenhydrAMINE (BENADRYL) injection 25 mg [APR Hold] docusate (COLACE) capsule 100 mg 100 mg at 08/22/172140 [APR Hold] duloxetine DR (CYMBALTA) capsule 60 mg 60 mg at 08/22/172141 [APR Hold] fentaNYL citrate PF (SUBLIMAZE) injection 25-50 mcg [APR Hold] furosemide (LASIX) tablet 40 mg 40 mg at 08/23/17 0804 [APR Hold] HYDROcodone/acetaminophen (NORCO) 5/325 mg tablet 1-2 tablet 2 tablet at 08/23/17 0351 lactated ringers infusion [APR Hold] latanoprost (XALATAN) 0.005 % ophthalmic solution 1 drop 1 drop at 08/22/172141 [APR Hold] lisinopril (PRINIVIL; ZESTRIL) tablet 40 mg 40 mg at 07/14/18 0929 [MAR Hold] milk of magnesia (CONC) oral suspension 10 mL [MAR Hold] nebivolol (BYSTOLIC) tablet 10 mg 10 mg at 08/23/17 0929 [APR Hold] ondansetron (ZOFRAN) injection 4 mg piperacillin/tazobactam (ZOSYN) 3.375 g/50 mL iso-osmotic IVPB 3.375 g at 08/23/17 1038 [MAR Hold] potassium chloride SR (K-DUR) tablet 20 mEq 20 mEq at 08/23/17928 sodium chloride 0.9 % infusion [MAR Hold] timolol maleate (TIMOPTIC) 0.5 % ophthalmic drops 1 drop 1 drop at 08/23/17 0807 vancomycin (VANCOCIN) 1,000 mg in D5W 200mL IVPB (premade) 1 g at 08/23/17 0537 [COMPLETED] vancomycin (VANCOCIN) 1,250 mg in dextrose 5% (D5W) IVPB 1,250 mg at 08/22/17 1809 And vancomycin, pharmacy to manage Clinical Impression: Final diagnoses: Wound infection (Primary) Disposition/Follow up Admit No follow-up provider specified. Medications: New Prescriptions No medications on file Procedure Notes: Procedures Attestation / Supervision: Ferny Restrepo MD Attestation / Supervision Note concerning Steff Langston Jorge Alberto: I personally performed the roberson portions of the E/M visit, discussed case with resident and concur with resident documentation of history, physical exam, assessment, and treatment plan unless otherwise noted. Grady Truong MD * ED Notes - Cassy Diana RN - 08/22/2017 10:47 AM CDT 72 year old female resting on cart with HOB elevated states that she had a total ankle repair on her right ankle on 07/18/2017. Pt states that she has recently begun to show signs and symptoms of infection at incision site. Pt's right ankle is red, warm to the touch, and swollen with no drainage present. Pt states that she had purulent drainage from the incision site "a few days ago." pt states that she had a temperature of 100.6f yesterday, but "I don't feel like I have a fever today." pt states that the pain is worse when pressure is applied to the ankle. Pt still ambulating using a walker with boot to rest her affected ankle. Pt denies all other complaints. Pt states that she has a follow up appointment on Friday for her ankle infection, but states "I just didn't want to wait that long." Pt is A&OX4. Resp even and unlabored. Pt attached to all monitors. Skin is warm , dry, appropriate for ethnicity and intact. Pt resting on cart with call light in reach. Pt has verbalized understanding of use. Pt educated on hourly safety rounding. Cart in the lowest position, wheels are locked, and bed rails up x2. Pt awaits provider evaluation at this time. Pt has a female dictaphone typist at the bedside. * ED Triage Notes - Cassy Diana RN - 08/22/2017 10:43 AM CDT Belongings: yellow floral bag, walker, pillow, pillow, white pants, wallet, camboot walker, $55, debit/credit cards present. All belongings at the bedside with pt. in this encounter Plan of Treatment Date Type Specialty Care Team Description 09/16/2017 Procedure Pass Orthopedic Surgery Name Priority Associated Diagnoses Date/Time POC ANES US GUIDED NERVE BLOCK Routine 08/23/2017 9:53 AM CDT POC ANES US GUIDED NERVE BLOCK Routine 08/23/2017 9:55 AM CDT CULTURE-FUNGAL,OTHER STAT Wound infection 08/26/2017 12:07 PM CDT CULTURE-FUNGAL,OTHER STAT Wound infection 08/26/2017 12:09 PM CDT Name Priority Associated Diagnoses Order Schedule POC ANES US GUIDED NERVE BLOCK Routine ONE TIME for 1 Occurrences starting 08/23/2017 until 08/23/2017 POC ANES US GUIDED NERVE BLOCK Routine ONE TIME for 1 Occurrences starting 08/23/2017 until 08/23/2017 SURGICAL PATHOLOGY Routine Wound infection ONCE for 1 Occurrences starting 08/23/2017 ECG 12-LEAD Routine ONE TIME for 1 Occurrences starting 08/25/2017 until 08/25/2017 as of this encounter Procedures Procedure Name Priority Date/Time Associated Diagnosis [...] THERAPY TEAM Routine 08/27/2017 12:16 AM CDT DEBRIDEMENT LOWER 08/26/2017 Wound infection EXTREMITY 10:00 AM CDT ECG-SCAN 08/24/2017 Results for this 7:40 PM CDT procedure are in the results section. DEBRIDEMENT LOWER 08/23/2017 Wound infection EXTREMITY 10:05 AM CDT in this encounter Results * ECG-SCAN (09/10/2017 11:46 AM) Narrative Performed At Ordered by an unspecified provider. * ECG-SCAN (09/03/2017 4:16 PM) Narrative Performed At Ordered by an unspecified provider. * ECG-SCAN (09/03/2017 3:21 PM) Narrative Performed At Ordered by an unspecified provider. * TELEMETRY STRIPS-SCAN (09/03/2017 3:21 PM) Narrative Performed At Ordered by an unspecified provider. * LIVER FUNCTION PANEL (09/02/2017 3:30 AM) Total Bilirubin 0.4 0.3 - 1.2 MG/DL [facility] Bilirubin, Direct 0.1 <0.4 MG/DL [facility] Albumin 3.1 (L) 3.5 - 5.0 G/DL [facility] Alk Phosphatase 86 25 - 110 U/L [facility] AST (SGOT) 32 7 - 40 U/L [facility] ALT (SGPT) 15 7 - 56 U/L [facility] Total Protein 6.5 6.0 - 8.0 G/DL [facility] Performing Organization Address [facility] Phone Number [facility] [address] [place] [address] * CREATINE KINASE-CPK (09/02/2017 3:30 AM) Creatine Kinase 26 21 - 215 U/L [facility] Performing Organization Address City/[facility]ode Phone Number [facility] [address] [place] [address] * BASIC METABOLIC PANEL (09/02/2017 3:30 AM) Sodium 136 (L) 137 - 147 MMOL/L [facility] Potassium 3.5 3.5 - 5.1 MMOL/L [facility] Chloride 98 98 - 110 MMOL/L [facility] CO2 29 21 - 30 MMOL/L [facility] Anion Gap 9 3 - 12 [facility] Glucose 110 (H) 70 - 100 MG/DL [facility] Blood Urea Nitrogen 32 (H) 7 - 25 MG/DL [facility] Creatinine 1.89 (H) 0.4 - 1.00 MG/DL [facility] Calcium 9.0 8.5 - 10.6 MG/DL [facility] eGFR Non 26 (L) >60 mL/min [facility] Comment: The eGFR is not validated for use in drug dosing adjustments.Continue to use estimated creatinine clearance per dosing reference text.Please contact the Clinical Pharmacist for questions. eGFR 32 (L) >60 mL/min [facility] Comment: The eGFR is not validated for use in drug dosing adjustments.Continue to use estimated creatinine clearance per dosing reference text.Please contact the Clinical Pharmacist for questions. Specimen Blood Performing Organization Address City/State/Zipcode Phone Number [facility] [address] [place] [address] * CBC AND DIFF (09/02/2017 3:30 AM) White Blood Cells 10.4 4.5 - 11.0 [...] [facility] Specimen Blood Performing Organization Address City/[facility]ode Phone Number [facility] [address] [place] [address] * C DIFFICILE BY PCR (09/01/2017 2:50 PM) Battery Name C DIFFICILE PCR [facility] Specimen Description FECES [facility] Special Requests NONE [facility] C. Difficile Toxin B PCR NEGATIVE-wait 7 days to repeat [facility] test Report Status FINAL [facility] 09/01/2017 Specimen Feces Performing Organization Address City/[facility] Phone Number [facility] [address] [place] [address] * BNP (B-TYPE NATRIURETIC PEPTI) (09/01/2017 12:35 PM) B Type Natriuretic 204.0 (H) 0 - 100 PG/ML [facility] Peptide Specimen Blood Performing Organization Address City/[facility] Phone Number [facility] [address] [place] [address] * BASIC METABOLIC PANEL (09/01/2017 3:50 AM) Sodium 135 (L) 137 - 147 MMOL/L [facility] Potassium 4.0 3.5 - 5.1 MMOL/L [facility] Chloride 99 98 - 110 MMOL/L [facility] CO2 27 21 - 30 MMOL/L [facility] Anion Gap 9 3 - 12 [facility] Glucose 117 (H) 70 - 100 MG/DL [facility] Blood Urea Nitrogen 35 (H) 7 - 25 MG/DL [facility] Creatinine 2.14 (H) 0.4 - 1.00 MG/DL [facility] Calcium 9.4 8.5 - 10.6 MG/DL [facility] eGFR Non 23 (L) >60 mL/min [facility] Comment: The eGFR is not validated for use in drug dosing adjustments.Continue to use estimated creatinine clearance per dosing reference text.Please contact the Clinical Pharmacist for questions. eGFR 28 (L) >60 mL/min [facility] Comment: The eGFR is not validated for use in drug dosing adjustments.Continue to use estimated creatinine clearance per dosing reference text.Please contact the Clinical Pharmacist for questions. Specimen Blood Performing Organization Address City/[facility]/Zipcode Phone Number MA[facility] [address] [place] [address] * CBC AND DIFF (09/01/2017 3:50 AM) White Blood Cells 12.3 (H) 4.5 - 11.0 K/UL [facility] RBC 3.52 (L) 4.0 - 5.0 M/UL [facility] Hemoglobin 10.7 (L) 12.0 - 15.0 GM/DL [facility] Hematocrit 32.2 (L) 36 - 45 % [facility] MCV 91.7 80 - 100 FL [facility] MCH 30.4 26 - 34 PG [facility] MCHC 33.2 32.0 - 36.0 G/DL [facility] RDW 13.3 11 - 15 % [facility] Platelet Count 474 (H) 150 - 400 K/UL [facility] MPV 7.1 7 - 11 FL [facility] Neutrophils 79 (H) 41 - 77 % [facility] Lymphocytes 8 (L) 24 - 44 % [facility] Monocytes 10 4 - 12 % [facility] Eosinophils 2 0 - 5 % [facility] Basophils 1 0 - 2 % [facility] Absolute Neutrophil Count 9.70 (H) 1.8 - 7.0 K/UL [facility] Absolute Lymph Count 0.90 (L) 1.0 - 4.8 K/UL [facility] Absolute Monocyte Count 1.20 (H) 0 - 0.80 K/UL [facility] Absolute Eosinophil Count 0.30 0 - 0.45 K/UL [facility] Absolute Basophil Count 0.10 0 - 0.20 K/UL [facility] Specimen Blood Performing Organization Address City/[facility]/Zipcode Phone Number [facility] [address] [place] [address] * BASIC METABOLIC PANEL (08/31/2017 3:30 AM) Sodium 135 (L) 137 - 147 MMOL/L [facility] Potassium 3.5 3.5 - 5.1 MMOL/L [facility] Chloride 98 98 - 110 MMOL/L [facility] CO2 28 21 - 30 MMOL/L [facility] Anion Gap 9 3 - 12 [facility] Glucose 123 (H) 70 - 100 MG/DL [facility] Blood Urea Nitrogen 40 (H) 7 - 25 MG/DL [facility] Creatinine 2.40 (H) 0.4 - 1.00 MG/DL [facility] Calcium 9.1 8.5 - 10.6 MG/DL [facility] eGFR Non 20 (L) >60 mL/min [facility] Comment: The eGFR is not validated for use in drug dosing adjustments.Continue to use estimated creatinine clearance per dosing reference text.Please contact the Clinical Pharmacist for questions. eGFR 24 (L) >60 mL/min [facility] Comment: The eGFR is not validated for use in drug dosing adjustments.Continue to use estimated creatinine clearance per dosing reference text.Please contact the Clinical Pharmacist for questions. Performing Organization Address City/State/Zipcode Phone Number [facility] [address] [place] [address] * CBC AND DIFF (08/31/2017 3:30 AM) White Blood Cells 10.2 4.5 - 11.0 K/UL [facility] RBC 3.45 (L) 4.0 - 5.0 M/UL [facility] Hemoglobin 10.4 (L) 12.0 - 15.0 GM/DL [facility] Hematocrit 31.5 (L) 36 - 45 % [facility] MCV 91.3 80 - 100 FL [facility] MCH 30.0 26 - 34 PG [facility] MCHC 32.9 32.0 - 36.0 G/DL [facility] RDW 13.3 11 - 15 % [facility] Platelet Count 402 (H) 150 - 400 K/UL [facility] MPV 7.3 7 - 11 FL [facility] Neutrophils 79 (H) 41 - 77 % [facility] Lymphocytes 7 (L) 24 - 44 % [facility] Monocytes 11 4 - 12 % [facility] Eosinophils 3 0 - 5 % [facility] Basophils 0 0 - 2 % [facility] Absolute Neutrophil Count 8.00 (H) 1.8 - 7.0 K/UL [facility] Absolute Lymph Count 0.70 (L) 1.0 - 4.8 K/UL [facility] Absolute Monocyte Count 1.20 (H) 0 - 0.80 K/UL [facility] Absolute Eosinophil Count 0.30 0 - 0.45 K/UL [facility] Absolute Basophil Count 0.00 0 - 0.20 K/UL [facility] Specimen Blood Performing Organization Address City/[facility]/Zipcode Phone Number [facility] [address] [place] [address] * CHEST SINGLE VIEW (08/30/2017 10:27 AM) Impressions Performed At No pneumothorax, focal consolidation [...] on 08/30/2017 11:51 AM. Performing Organization Address City/[facility]/Zipcode Phone Number [facility] RES[facility] * CBC AND DIFF (08/30/2017 3:50 AM) White Blood Cells 9.2 4.5 - 11.0 K/UL [facility] RBC 3.49 (L) 4.0 - 5.0 M/UL [facility] Hemoglobin 10.6 (L) 12.0 - 15.0 GM/DL [facility] Hematocrit 32.2 (L) 36 - 45 % [facility] MCV 92.2 80 - 100 FL [facility] MCH 30.4 26 - 34 PG [facility] MCHC 32.9 32.0 - 36.0 G/DL [facility] RDW 13.6 11 - 15 % [facility] Platelet Count 414 (H) 150 - 400 K/UL [facility] MPV 7.2 7 - 11 FL [facility] Neutrophils 76 41 - 77 % [facility] Lymphocytes 9 (L) 24 - 44 % [facility] Monocytes 12 4 - 12 % [facility] Eosinophils 3 0 - 5 % [facility] Basophils 0 0 - 2 % [facility] Absolute Neutrophil Count 7.00 1.8 - 7.0 K/UL [facility] Absolute Lymph Count 0.80 (L) 1.0 - 4.8 K/UL [facility] Absolute Monocyte Count 1.10 (H) 0 - 0.80 K/UL [facility] Absolute Eosinophil Count 0.30 0 - 0.45 K/UL [facility] Absolute Basophil Count 0.00 0 - 0.20 K/UL [facility] Specimen Blood Performing Organization Address City/[facility]/Zipcode Phone Number [facility] [address] [place] [address] * BASIC METABOLIC PANEL (08/30/2017 3:50 AM) Sodium 135 (L) 137 - 147 MMOL/L [facility] Potassium 3.4 (L) 3.5 - 5.1 MMOL/L [facility] Chloride 99 98 - 110 MMOL/L [facility] CO2 25 21 - 30 MMOL/L [facility] Anion Gap 11 3 - 12 [facility] Glucose 121 (H) 70 - 100 MG/DL [facility] Blood Urea Nitrogen 44 (H) 7 - 25 MG/DL [facility] Creatinine 2.62 (H) 0.4 - 1.00 MG/DL [facility] Calcium 9.1 8.5 - 10.6 MG/DL [facility] eGFR Non 18 (L) >60 mL/min [facility] Comment: The eGFR is not validated for use in drug dosing adjustments.Continue to use estimated creatinine clearance per dosing reference text.Please contact the Clinical Pharmacist for questions. eGFR 22 (L) >60 mL/min [facility] Comment: The eGFR is not validated for use in drug dosing adjustments.Continue to use estimated creatinine clearance per dosing reference text.Please contact the Clinical Pharmacist for questions. Specimen Blood Performing Organization Address City/[facility]/Zipcode Phone Number [facility] [address] [place] [address] * CBC AND DIFF (08/29/2017 4:30 AM) White Blood Cells 8.7 4.5 - 11.0 K/UL [facility] RBC 3.23 (L) 4.0 - 5.0 M/UL [facility] Hemoglobin 10.1 (L) 12.0 - 15.0 GM/DL [facility] Hematocrit 28.8 (L) 36 - 45 % [facility] MCV 89.2 80 - 100 FL [facility] MCH 31.2 26 - 34 PG [facility] MCHC 34.9 32.0 - 36.0 G/DL [facility] RDW 13.3 11 - 15 % [facility] Platelet Count 333 150 - 400 K/UL [facility] MPV 7.1 7 - 11 FL [facility] Neutrophils 78 (H) 41 - 77 % [facility] Lymphocytes 6 (L) 24 - 44 % [facility] Monocytes 12 4 - 12 % [facility] Eosinophils 3 0 - 5 % [facility] Basophils 1 0 - 2 % [facility] Absolute Neutrophil Count 6.80 1.8 - 7.0 K/UL [facility] Absolute Lymph Count 0.50 (L) 1.0 - 4.8 K/UL [facility] Absolute Monocyte Count 1.10 (H) 0 - 0.80 K/UL [facility] Absolute Eosinophil Count 0.20 0 - 0.45 K/UL [facility] Absolute Basophil Count 0.10 0 - 0.20 K/UL [facility] Specimen Blood Performing Organization Address City/State/Zipcode Phone Number [facility] [address] [place] [address] * BASIC METABOLIC PANEL (08/29/2017 4:30 AM) Sodium 135 (L) 137 - 147 MMOL/L [facility] Potassium 3.5 3.5 - 5.1 MMOL/L [facility] Chloride 101 98 - 110 MMOL/L [facility] CO2 27 21 - 30 MMOL/L [facility] Anion Gap 7 3 - 12 [facility] Glucose 120 (H) 70 - 100 MG/DL [facility] Blood Urea Nitrogen 38 (H) 7 - 25 MG/DL [facility] Creatinine 2.98 (H) 0.4 - 1.00 MG/DL [facility] Calcium 8.8 8.5 - 10.6 MG/DL [facility] eGFR Non 16 (L) >60 mL/min [facility] Comment: The eGFR is not validated for use in drug dosing adjustments.Continue to use estimated creatinine clearance per dosing reference text.Please contact the Clinical Pharmacist for questions. eGFR 19 (L) >60 mL/min [facility] Comment: The eGFR is not validated for use in drug dosing adjustments.Continue to use estimated creatinine clearance per dosing reference text.Please contact the Clinical Pharmacist for questions. Specimen Blood Performing Organization Address City/State/Zipcode Phone Number [facility] [address] [place] [address] * METASTATIC SKELETAL SURVEY (08/28/2017 9:48 AM) [...] on 08/28/2017 10:06 AM. Performing Organization Address City/State/Zipcode Phone Number [facility] RES[facility] * ABDOMEN AP ONLY (08/28/2017 9:48 AM) Impressions Performed At No bowel obstruction. [facility] [...] on 08/28/2017 10:05 AM. Performing Organization Address City/State/Zipcode Phone Number [facility] RES[facility] * CHEST SINGLE VIEW (08/28/2017 9:46 AM) Impressions Performed At Mild cardiomegaly without CHF or pneumonia. [facility] RESULTS Approved by Owen Luna MD on 08/28/2017 1:43 PM By my electronic signature, I attest that I have personally reviewed the images for this examination and formulated the interpretations and opinions expressed in this report Finalized by Bentley Davis D.O. on 08/28/2017 10:09 PM. Dictated by Owen Luna MD on 08/28/2017 10:11 AM. Narrative Performed At CHEST SINGLE VIEW [facility] RESULTS Clinical Indication: Female, 72 years old. Pulmonary edema, shortness of breath Comparison: Portable chest x-ray on August 27, 2017 Findings: Right PICC remains in place with distal tip in similar position. Mild cardiomegaly without pulmonary vascular congestion. Resolution of previously noted bibasilar opacities. No focal consolidation, pleural effusion, or pneumothorax. Procedure Note Interface, Radiant Results - 08/28/2017 10:12 PM CDT CHEST SINGLE VIEW Clinical Indication: Female, 72 years old. Pulmonary edema, shortness of breath Comparison: Portable chest x-ray on August 27, 2017 Findings: Right PICC remains in place with distal tip in similar position. Mild cardiomegaly without pulmonary vascular congestion. Resolution of previously noted bibasilar opacities. No focal consolidation, pleural effusion, or pneumothorax. IMPRESSION Mild cardiomegaly without CHF or pneumonia. Approved by Owen Luna MD on 08/28/2017 1:43 PM By my electronic signature, I attest that I have personally reviewed the images for this examination and formulated the interpretations and opinions expressed in this report Finalized by Bentley Davis D.O. on 08/28/2017 10:09 PM. Dictated by Owen Luna MD on 08/28/2017 10:11 AM. Performing Organization Address [facility] Phone Number [facility] RESULTS * MANUAL DIFF (08/28/2017 3:04 AM) Segmented Neutrophils 83 (H) 41 - 77 % [facility] Lymphocytes 6 (L) 24 - 44 % [facility] Monocytes 8 4 - 12 % [facility] Eosinophil 2 0 - 5 % [facility] Basophil 1 0 - 2 % [facility] Platelet Estimate NORMAL MAIN LAB RBC Morph NORMAL [facility] LAB Performing Organization Address [facility] Phone Number [facility] [address] [place] [address] * CREATINE KINASE-CPK (08/28/2017 3:04 AM) Creatine Kinase 34 21 - 215 U/L [facility] Performing Organization Address [facility] Phone Number MA[facility] [address] [place] [address] * CBC (08/28/2017 3:04 AM) White Blood Cells 11.4 (H) 4.5 - 11.0 K/UL [facility] RBC 3.60 (L) 4.0 - 5.0 M/UL [facility] Hemoglobin 10.9 (L) 12.0 - 15.0 GM/DL [facility] Hematocrit 33.0 (L) 36 - 45 % [facility] MCV 91.7 80 - 100 FL [facility] MCH 30.2 26 - 34 PG [facility] MCHC 33.0 32.0 - 36.0 G/DL [facility] RDW 13.2 11 - 15 % [facility] Platelet Count 384 150 - 400 K/UL [facility] MPV 7.5 7 - 11 FL [facility] Specimen Blood Performing Organization Address [facility] Phone Number [facility] [address] [place] [address] * BASIC METABOLIC PANEL (08/28/2017 3:04 AM) Sodium 135 (L) 137 - 147 MMOL/L [facility] Potassium 3.9 3.5 - 5.1 MMOL/L [facility] Chloride 103 98 - 110 MMOL/L [facility] CO2 23 21 - 30 MMOL/L [facility] Anion Gap 9 3 - 12 [facility] Glucose 125 (H) 70 - 100 MG/DL [facility] Blood Urea Nitrogen 28 (H) 7 - 25 MG/DL [facility] Creatinine 3.28 (H) 0.4 - 1.00 MG/DL [facility] Calcium 9.1 8.5 - 10.6 MG/DL [facility] eGFR Non 14 (L) >60 mL/min [facility] Comment: The eGFR is not validated for use in drug dosing adjustments.Continue to use estimated creatinine clearance per dosing reference text.Please contact the Clinical Pharmacist for questions. eGFR 17 (L) >60 mL/min [facility] Comment: The eGFR is not validated for use in drug dosing adjustments.Continue to use estimated creatinine clearance per dosing reference text.Please contact the Clinical Pharmacist for questions. Specimen Blood Performing Organization Address City/[facility]/Zipcode Phone Number MAIN [facility] [address] [place] [address] * CULTURE-URINE W/SENSITIVITY (08/27/2017 3:59 PM) Battery Name URINE CULTURE MAIN LAB Specimen Description URINE MAIN LAB Special Requests NONE [facility] Culture NO GROWTH MAIN LAB Report Status FINAL MAIN LAB 08/28/2017 Specimen Urine Performing Organization Address [facility] Phone Number [facility] [address] [place] [address] * UA REFLEX CULTURE LABEL (08/27/2017 3:59 PM) UA Reflex Culture LAB LABEL MAIN LAB Specimen Urine Performing Organization Address [facility] Phone Number [facility] [address] [place] [address] * URINALYSIS MICROSCOPIC REFLEX TO CULTURE (08/27/2017 3:59 PM) WBCs,UA 2-10 0 - 2 /HPF MAIN LAB RBCs,UA 2-10 0 - 3 /HPF [facility] Comment,UA Urine submitted for reflex MAIN LAB culture if criteria are met:WBC>10, positive nitrite and/or >=1+ leukocyte esterase. If quantity is not sufficient, an addendum will follow. MucousUA TRACE [facility] Bacteria,UA FEW (A) NEG-NEG [facility] Squamous Epithelial Cells 0-2 0 - 5 MAIN LAB Specimen Urine Performing Organization Address City/[facility]/Zipcode Phone Number MAIN [facility] [address] [place] [address] * URINALYSIS DIPSTICK REFLEX TO CULTURE (08/27/2017 3:59 PM) Color,UA YELLOW [facility] Turbidity,UA CLEAR CLEAR-CLEAR [facility] Specific [place]-Urine 1.004 1.003 - 1.035 [facility] [...] MAIN LAB Specimen Urine Performing Organization Address City/State/Zipcode Phone Number [facility] [address] [place] [address] * CHEST SINGLE VIEW (08/27/2017 2:47 PM) Narrative Performed At CHEST SINGLE VIEW [facility] RESULTS Clinical Indication: Female, 72 years old. Acute shortness of breath Comparison: Chest x-ray 08/22/2017 Findings: Heart size and pulmonary vasculature are unremarkable. Development of predominantly basilar opacities, greater on the right. No obvious pleural effusion or pneumothorax. Impression 1.Development of bibasilar opacities, greater on the right, which may represent edema and/or pneumonia. Approved by Yury Siddiqui M.D. on 08/27/2017 3:14 PM By my electronic signature, I attest that I have personally reviewed the images for this examination and formulated the interpretations and opinions expressed in this report Finalized by Cassidy Paula M.D. on 08/27/2017 3:15 PM. Dictated by Yury Siddiqui M.D. on 08/27/2017 2:58 PM. Procedure Note Interface, Radiant Results - 08/27/2017 3:18 PM CDT CHEST SINGLE VIEW Clinical Indication: Female, 72 years old. Acute shortness of breath Comparison: Chest x-ray 08/22/2017 Findings: Heart size and pulmonary vasculature are unremarkable. Development of predominantly basilar opacities, greater on the right. No obvious pleural effusion or pneumothorax. Impression 1. Development of bibasilar opacities, greater on the right, which may represent edema and/or pneumonia. Approved by Yury Siddiqui M.D. on 08/27/2017 3:14 PM By my electronic signature, I attest that I have personally reviewed the images for this examination and formulated the interpretations and opinions expressed in this report Finalized by Cassidy Paula M.D. on 08/27/2017 3:15 PM. Dictated by Yury Siddiqui M.D. on 08/27/2017 2:58 PM. Performing Organization Address [facility] Phone Number RAD RESULTS * IMMUNOGLOBULINS-IGA,IGG,IGM (08/27/2017 12:07 PM) IgG 913 762 - 1,488 MG/DL [facility] IgA 187 70 - 390 MG/DL [facility] IgM 131 38 - 328 MG/DL [facility] Specimen Blood Performing Organization Address [facility] Phone Number MAIN LAB [address] [place] [address] * BASIC METABOLIC PANEL (08/27/2017 3:43 AM) Sodium 136 (L) 137 - 147 MMOL/L [facility] Potassium 4.3 3.5 - 5.1 MMOL/L [facility] Chloride 106 98 - 110 MMOL/L [facility] CO2 21 21 - 30 MMOL/L [facility] Anion Gap 9 3 - 12 [facility] Glucose 113 (H) 70 - 100 MG/DL [facility] Blood Urea Nitrogen 25 7 - 25 MG/DL [facility] Creatinine 3.20 (H) 0.4 - 1.00 MG/DL [facility] Calcium 8.8 8.5 - 10.6 MG/DL [facility] eGFR Non 14 (L) >60 mL/min [facility] Comment: The eGFR is not validated for use in drug dosing adjustments.Continue to use estimated creatinine clearance per dosing reference text.Please contact the Clinical Pharmacist for questions. eGFR 17 (L) >60 mL/min [facility] Comment: The eGFR is not validated for use in drug dosing adjustments.Continue to use estimated creatinine clearance per dosing reference text.Please contact the Clinical Pharmacist for questions. Specimen Blood Performing Organization Address [facility] Phone Number MAIN LAB [address] [place] [address] * CBC (08/27/2017 3:43 AM) White Blood Cells 8.4 4.5 - 11.0 K/UL [facility] RBC 3.49 (L) 4.0 - 5.0 M/UL [facility] Hemoglobin 10.6 (L) 12.0 - 15.0 GM/DL [facility] Hematocrit 31.7 (L) 36 - 45 % [facility] MCV 90.8 80 - 100 FL [facility] MCH 30.2 26 - 34 PG [facility] MCHC 33.3 32.0 - 36.0 G/DL [facility] RDW 12.7 11 - 15 % [facility] Platelet Count 288 150 - 400 K/UL [facility] MPV 7.6 7 - 11 FL [facility] Specimen Blood Performing Organization Address [facility] Phone Number [facility] [address] [place] [address] * URINE COLLECTION (08/26/2017 3:52 PM) Collection Period, Urine 24.0 [facility] Volume, Urine 1,530 MLS [facility] Performing Organization Address [facility] Phone Number [facility] [address] [place] [address] * IMMUNOFIXATION URINE 24 HOUR (08/26/2017 3:52 PM) Immuno Fix-URINE FREE KAPPA LIGHT CHAIN [facility] Pathologist Signature INTERPRETED BY SELENE DIANE M.D. [facility] By the PATH SIGNATURE ABOVE, I attest that I have personally formulated the final interpretation expressed in this report and that the above diagnosis is based upon my examination of the slides and/or other material indicated in this report. Specimen Urine - Urine Performing Organization Address [facility] Phone Number [facility] [address] [place] [address] * UA REFLEX CULTURE LABEL (08/26/2017 3:51 PM) UA Reflex Culture LAB LABEL [facility] Specimen Urine Performing Organization Address [facility] Phone Number [facility] [address] [place] [address] * MICROALB/CR RATIO-URINE RANDOM (08/26/2017 3:51 PM) Microalbumin, Random 77.2 (H) <19 MCG/ML [facility] Creatinine, Random 53 MG/DL [facility] Microalbumin/CR ratio 145.66 (H)Comment: NOTE NEW <30 ug/mg [facility] Urine REFERENCE RANGES Specimen Urine - Urine Performing Organization Address [facility] Phone Number [facility] [address] [place] [address] * PROTEIN/CR RATIO,UR RAN (08/26/2017 3:51 PM) Protein, Random 21 MG/DL [facility] Creatinine, Random 53 MG/DL [facility] Protein/CR ratio 0.4 [facility] Specimen Urine - Urine Performing Organization Address [facility] Phone Number [facility] [address] [place] [address] * URINALYSIS MICROSCOPIC REFLEX TO CULTURE (08/26/2017 3:51 PM) WBCs,UA 0-2 0 - 2 /HPF [facility] RBCs,UA 10-20 0 - 3 /HPF [facility] Comment,UA Urine submitted for reflex [facility] culture if criteria are met:WBC>10, positive nitrite and/or >=1+ leukocyte esterase. If quantity is not sufficient, an addendum will follow. MucousUA TRACE [facility] Specimen Urine Performing Organization Address [facility] Phone Number [facility] [address] [place] [address] * URINALYSIS DIPSTICK REFLEX TO CULTURE (08/26/2017 3:51 PM) Color,UA YELLOW [facility] Turbidity,UA CLEAR CLEAR-CLEAR [facility] Specific [place]-Urine 1.005 1.003 - 1.035 [facility] pH,UA 5.0 5.0 - 8.0 [facility] Protein,UA NEG NEG-NEG [facility] Glucose,UA NEG NEG-NEG [facility] Ketones,UA NEG NEG-NEG [facility] Bilirubin,UA NEG NEG-NEG [facility] Blood,UA 1+ (A) NEG-NEG [facility] Urobilinogen,UA NORMAL NORM-NORMAL [facility] Nitrite,UA NEG NEG-NEG [facility] Leukocytes,UA NEG NEG-NEG [facility] Urine Ascorbic Acid, UA NEG NEG-NEG [facility] Specimen Urine Performing Organization Address [facility] Phone Number [facility] [address] [place] [address] * GRAM STAIN (08/26/2017 12:09 PM) Battery Name GRAM STAIN [facility] Specimen Description TISSUE [facility] LEFT ANKLE Special Requests NONE [facility] Gram Stain RARE [facility] NEUTROPHILS NO ORGANISMS SEEN Report Status FINAL [facility] 08/26/2017 Specimen Tissue - Tissue Performing Organization Address [facility] Phone Number [facility] [address] [place] [address] * CULTURE-WOUND/TISSUE/FLUID(AEROBIC ONLY)W/SENSITIVITY (08/26/2017 12:09 PM) Battery Name ROUTINE CULTURE [facility] Specimen Description TISSUE [facility] MAIN [facility] LEFT ANKLE Special Requests NONE [facility] Direct Gram Stain RARE [facility] NEUTROPHILS NO ORGANISMS SEEN Culture 1 [place] MAIN LAB STAPHYLOCOCCUS AUREUS See previous susceptibility Report Status FINAL [facility] 08/29/2017 Specimen Tissue - Tissue Performing Organization Address City/[facility] Phone Number [facility] [address] [place] [address] * CULTURE-ANAEROBIC (08/26/2017 12:09 PM) Battery Name ANAEROBE CULTURE [facility] Specimen Description TISSUE [facility]IN [facility] LEFT ANKLE Special Requests NONE [facility]IN [facility] Culture NO ANAEROBES ISOLATED [facility]IN [facility] Report Status FINAL [facility] 09/01/2017 Specimen Tissue - Tissue Performing Organization Address [facility] Phone Number [facility] [address] [place] [address] * CULTURE-WOUND/TISSUE/FLUID(AEROBIC ONLY)W/SENSITIVITY (08/26/2017 12:07 PM) Battery Name ROUTINE CULTURE [facility] Specimen Description HARDWARE SPECIMEN [facility] MAIN [facility] LEFT ANKLE POLY Special Requests NONE [facility] Culture 1 [place] [facility] STAPHYLOCOCCUS AUREUS (A) Report Status FINAL [facility] 08/29/2017 Organism ID 1 [place] MAIN LAB STAPHYLOCOCCUS AUREUS Specimen Hardware - Hardware Specimen Organism Antibiotic Method Susceptibility 1 colony staphylococcus Clindamycin RICK (MCG/ML) <=0.5 SUSCEPTIBLE: aureus INTERPRETATION Susceptible 1 colony staphylococcus Erythromycin RICK (MCG/ML) >4 RESISTANT: Resistant aureus INTERPRETATION 1 colony staphylococcus Oxacillin RICK (MCG/ML) 1 SUSCEPTIBLE: aureus INTERPRETATION Susceptible 1 colony staphylococcus Vancomycin RICK (MCG/ML) 1 SUSCEPTIBLE: aureus INTERPRETATION Susceptible 1 colony staphylococcus Tetracycline RICK (MCG/ML) <=0.5 SUSCEPTIBLE: aureus INTERPRETATION Susceptible 1 colony staphylococcus Trimethsulfa RICK (MCG/ML) <=19 SUSCEPTIBLE: aureus INTERPRETATION Susceptible 1 colony staphylococcus Method RICK (MCG/ML) RICK (MCG/ML) aureus INTERPRETATION INTERPRETATION Performing Organization Address City/[facility] Phone Number CHEMO MAIN LAB [address] [place] [address] * CULTURE-ANAEROBIC (08/26/2017 12:07 PM) Battery Name ANAEROBE CULTURE MAIN LAB Specimen Description HARDWARE SPECIMEN MAIN LAB LEFT ANKLE POLY Special Requests NONE [facility] MAIN [facility] Culture NO ANAEROBES ISOLATED MAIN LAB Report Status FINAL MAIN LAB 09/01/2017 Specimen Hardware - Hardware Specimen Performing Organization Address [facility] Phone Number MAIN LAB [address] [place] [address] * ABDOMEN AP ONLY (08/26/2017 9:06 AM) Impressions Performed At 1. No evidence of mechanical bowel obstruction. [facility] RAD RESULTS Finalized by Angel Owens M.D. on 08/26/2017 9:48 AM. Dictated by Angel Owens M.D. on 08/26/2017 9:46 AM. Narrative Performed At AP abdomen [facility] RAD RESULTS CLINICAL HISTORY: Nausea and diarrhea. COMPARISON: None. FINDINGS: AP abdomen demonstrates that the bowel gas pattern is within normal limits. No organomegaly is noted. Mild amount of fecal material seen about the ascending and descending colon. Phleboliths are noted within the right pelvic cavity. Postsurgical changes of laminectomy involving L4 and L5 with posterior spinal fixation. Procedure Note Interface, Radiant Results - 08/26/2017 9:51 AM CDT AP abdomen CLINICAL HISTORY: Nausea and diarrhea. COMPARISON: None. FINDINGS: AP abdomen demonstrates that the bowel gas pattern is within normal limits. No organomegaly is noted. Mild amount of fecal material seen about the ascending and descending colon. Phleboliths are noted within the right pelvic cavity. Postsurgical changes of laminectomy involving L4 and L5 with posterior spinal fixation. IMPRESSION 1. No evidence of mechanical bowel obstruction. Finalized by Angel Owens M.D. on 08/26/2017 9:48 AM. Dictated by Angel Owens M.D. on 08/26/2017 9:46 AM. Performing Organization Address City/[facility] Phone Number [facility] RAD RESULTS * IMMUNOFIXATION, SERUM (IFES) (08/26/2017 4:00 AM) Immuno Fix-Serum IGG KAPPA PARAPROTEIN [facility] Pathologist Signature INTERPRETED BY SELENE DIANE M.D. [facility] By the PATH SIGNATURE ABOVE, I attest that I have personally formulated the final interpretation expressed in this report and that the above diagnosis is based upon my examination of the slides and/or other material indicated in this report. Performing Organization Address [facility] Phone Number [facility] [address] [place] [address] * KAPPA/LAMBDA FREE LIGHT CHAINS (08/26/2017 4:00 AM) [place], FLC 7.04 (H) 0.33 - 1.94 MG/DL [facility] Comment: Freelite results should always be interpreted in conjunction with other laboratory tests and clinical evidence.The possibility of Antigen Excess exists and can cause Immunoassays to under estimate very high concentrations of antigen. Any discordant results should be discussed with Dr. Mora. [place], FLC 2.44 0.57 - 2.63 MG/DL [facility] [place]/Lambda FLC 2.89 (H) 0.26 - 1.65 MAIN LAB Specimen Blood Performing Organization Address [facility] Phone Number [facility] [address] [place] [address] * TOTAL PROTEIN SEP (08/26/2017 4:00 AM) Total Protein 5.3 (L) 6.0 - 8.0 g/dL MAIN LAB Specimen Blood Performing Organization Address [facility] Phone Number [facility] [address] [place] [address] * ELECTROPHORESIS-SERUM PROTEIN (08/26/2017 4:00 AM) Total Protein-SEP 5.3 (L) 6.0 - 8.0 G/DL [facility] Albumin % 47.1 (L) 48 - 68 % [facility] Alpha 1 % 8.2 (H) 2 - 6 % [facility] Alpha 2 % 16.8 (H) 5 - 15 % [facility] Beta %,Serum 12.6 9 - 17 % [facility] Gamma % 15.3 9 - 21 % [facility] Paraprotein 0.17 G/DL [facility] Interpretation - SEP SPIKE, PROBABLY MONOCLONAL, IN [facility] BETA/[facility](S) Pathologist Signature INTERPRETED BY SELENE DIANE M.D. [facility] By the PATH SIGNATURE ABOVE, I attest that I have personally formulated the final interpretation expressed in this report and that the above diagnosis is based upon my examination of the slides and/or other material indicated in this report. Specimen Blood Performing Organization Address City/[facility]/Zipcode Phone Number [facility] [address] [place] [id number] * BASIC METABOLIC PANEL (08/26/2017 4:00 AM) Sodium 136 (L) 137 - 147 MMOL/L [facility] Potassium 4.3 3.5 - 5.1 MMOL/L [facility] Chloride 104 98 - 110 MMOL/L [facility] CO2 23 21 - 30 MMOL/L [facility] Anion Gap 9 3 - 12 [facility] Glucose 81 70 - 100 MG/DL MAIN LAB Blood Urea Nitrogen 24 7 - 25 MG/DL [facility] Creatinine 3.14 (H) 0.4 - 1.00 MG/DL [facility] Calcium 8.7 8.5 - 10.6 MG/DL MAIN LAB eGFR Non 15 (L) >60 mL/min [facility] Comment: The eGFR is not validated for use in drug dosing adjustments.Continue to use estimated creatinine clearance per dosing reference text.Please contact the Clinical Pharmacist for questions. eGFR 18 (L) >60 mL/min [facility] Comment: The eGFR is not validated for use in drug dosing adjustments.Continue to use estimated creatinine clearance per dosing reference text.Please contact the Clinical Pharmacist for questions. Specimen Blood Performing Organization Address City/[facility]/Zipcode Phone Number [facility] [address] [place] [address] * CBC (08/26/2017 4:00 AM) White Blood Cells 6.8 4.5 - 11.0 K/UL [facility] RBC 3.35 (L) 4.0 - 5.0 M/UL [facility] Hemoglobin 10.0 (L) 12.0 - 15.0 GM/DL [facility] Hematocrit 30.4 (L) 36 - 45 % [facility] MCV 90.8 80 - 100 FL [facility] MCH 29.9 26 - 34 PG [facility] MCHC 33.0 32.0 - 36.0 G/DL MAIN LAB RDW 12.8 11 - 15 % MAIN LAB Platelet Count 286 150 - 400 K/UL MAIN LAB MPV 7.5 7 - 11 FL MAIN LAB Specimen Blood Performing Organization Address City/[facility] Phone Number [facility] [address] [place] [address] * BLOOD TYPE CONFIRMATION - ORDER ONLY IF REQUESTED BY LAB (08/25/2017 7:20 PM) ABO/RH(D) A NEG MAIN LAB Specimen Blood Performing Organization Address City/[facility] Phone Number [facility] LAB [address] [place] [address] * C DIFFICILE BY PCR (08/25/2017 6:30 PM) Battery Name C DIFFICILE PCR MAIN LAB Specimen Description FECES MAIN LAB Special Requests NONE MAIN LAB C. Difficile Toxin B PCR NEGATIVE-wait 7 days to repeat MAIN LAB test Report Status FINAL MAIN LAB 08/26/2017 Specimen Feces Performing Organization Address [facility] Phone Number MAIN LAB [address] [place] [address] * TYPE & CROSSMATCH (08/25/2017 5:24 PM) Units Ordered 2 MAIN LAB Crossmatch Expires 08/28/2017 MAIN LAB Record Check 2ND TYPE REQUIRED MAIN LAB ABO/RH(D) A NEG MAIN LAB Antibody Screen NEG MAIN LAB Electronic Crossmatch YES MAIN LAB Specimen Blood Performing Organization Address [facility] Phone Number MA[facility] LAB [address] [place] [address] * CBC AND DIFF (08/25/2017 5:22 PM) White Blood Cells 7.7 4.5 - 11.0 K/UL MAIN LAB RBC 3.57 (L) 4.0 - 5.0 M/UL MAIN LAB Hemoglobin 10.9 (L) 12.0 - 15.0 GM/DL MAIN LAB Hematocrit 32.9 (L) 36 - 45 % MAIN LAB MCV 92.2 80 - 100 FL MAIN LAB MCH 30.5 26 - 34 PG MAIN LAB MCHC 33.1 32.0 - 36.0 G/DL MAIN LAB RDW 12.8 11 - 15 % [facility] MAIN [facility] Platelet Count 297 150 - 400 K/UL [facility]IN [facility] MPV 7.6 7 - 11 FL [facility]IN [facility] Neutrophils 83 (H) 41 - 77 % [facility] Lymphocytes 6 (L) 24 - 44 % [facility] Monocytes 10 4 - 12 % [facility] Eosinophils 1 0 - 5 % [facility] Basophils 0 0 - 2 % [facility] Absolute Neutrophil Count 6.40 1.8 - 7.0 K/UL [facility] Absolute Lymph Count 0.50 (L) 1.0 - 4.8 K/UL [facility] Absolute Monocyte Count 0.70 0 - 0.80 K/UL [facility] Absolute Eosinophil Count 0.00 0 - 0.45 K/UL [facility] Absolute Basophil Count 0.00 0 - 0.20 K/UL [facility]IN [facility] Specimen Blood Performing Organization Address City/State/Zipcode Phone Number [facility]IN [facility] [address] [place] [address] * RENAL BLADDER LTD (08/25/2017 4:16 PM) Impressions Performed At Unremarkable sonogram of the kidneys and bladder. [facility] RAD RESULTS Finalized by Cassidy Paula M.D. on 08/25/2017 4:16 PM. Dictated by Cassidy Paula M.D. on 08/25/2017 4:15 PM. Narrative Performed At Ultrasound of the kidneys and bladder [facility] RAD RESULTS Clinical Indication: ONI with bland urine microscopy. Technique: Multiple real-time [...] of the kidneys and bladder Clinical Indication: ONI with bland urine microscopy. Technique: Multiple real-time [...] on 08/25/2017 4:15 PM. Performing Organization Address City/[facility] Phone Number RAD RESULTS * IRON + BINDING CAPACITY + %SAT+ FERRITIN (08/25/2017 4:09 AM) Iron 21 (L) 50 - 160 MCG/DL [facility]IN [facility] Iron Binding-TIBC 279 270 - 380 MCG/DL [facility]IN [facility] % Saturation 8 (L) 28 - 42 % [facility] Ferritin 88 10 - 200 NG/ML MAIN LAB Performing Organization Address [facility] Phone Number MAIN LAB [address] [place] [address] * VANCOMYCIN RANDOM (08/25/2017 4:09 AM) Vancomycin Random 25.1 MCG/ML MAIN LAB Specimen Blood Performing Organization Address [facility] Phone Number MAIN LAB [address] [place] [address] * BASIC METABOLIC PANEL (08/25/2017 4:09 AM) Sodium 132 (L) 137 - 147 MMOL/L [facility] Potassium 4.5 3.5 - 5.1 MMOL/L [facility] Chloride 98 98 - 110 MMOL/L [facility]IN [facility] CO2 27 21 - 30 MMOL/L [facility] Anion Gap 7 3 - 12 [facility]IN [facility] Glucose 127 (H) 70 - 100 MG/DL [facility]IN [facility] Blood Urea Nitrogen 24 7 - 25 MG/DL [facility] Creatinine 2.72 (H) 0.4 - 1.00 MG/DL [facility] Calcium 9.0 8.5 - 10.6 MG/DL [facility]IN [facility] eGFR Non 17 (L) >60 mL/min [facility] Comment: The eGFR is not validated for use in drug dosing adjustments.Continue to use estimated creatinine clearance per dosing reference text.Please contact the Clinical Pharmacist for questions. eGFR 21 (L) >60 mL/min [facility] Comment: The eGFR is not validated for use in drug dosing adjustments.Continue to use estimated creatinine clearance per dosing reference text.Please contact the Clinical Pharmacist for questions. Specimen Blood Performing Organization Address [facility] Phone Number MA[facility] LAB [address] [place] [address] * CBC (08/25/2017 4:09 AM) White Blood Cells 6.8 4.5 - 11.0 K/UL [facility] RBC 3.44 (L) 4.0 - 5.0 M/UL [facility] Hemoglobin 10.4 (L) 12.0 - 15.0 GM/DL [facility]IN [facility] Hematocrit 31.6 (L) 36 - 45 % [facility] MAIN [facility] MCV 91.8 80 - 100 FL [facility] MAIN [facility] MCH 30.1 26 - 34 PG [facility]IN [facility] MCHC 32.8 32.0 - 36.0 G/DL [facility]IN [facility] RDW 12.9 11 - 15 % [facility] MAIN [facility] Platelet Count 259 150 - 400 K/UL [facility]IN [facility] MPV 7.5 7 - 11 FL [facility] Specimen Blood Performing Organization Address City/[facility]/Zipcode Phone Number [facility] [address] [place] [address] * ECG-SCAN (08/24/2017 7:40 PM) Narrative Performed At Ordered by an unspecified provider. * VANCOMYCIN TROUGH (08/24/2017 3:47 AM) Vancomycin Trough 34.1 (HH) 10.0 - 20.0 MCG/ML [facility] Comment: Critical Value VANC_T: Called To: ADELINA Esposito at: 06:09:34 by: NDT Read back by: ADELINA Esposito Performing Organization Address City/[facility] Phone Number [facility] [address] [place] [address] * BASIC METABOLIC PANEL (08/24/2017 3:47 AM) Sodium 136 (L) 137 - 147 MMOL/L [facility] Potassium 4.0 3.5 - 5.1 MMOL/L [facility]IN [facility] Chloride 98 98 - 110 MMOL/L [facility]IN [facility] CO2 31 (H) 21 - 30 MMOL/L [facility] MAIN [facility] Anion Gap 7 3 - 12 [facility]IN [facility] Glucose 138 (H) 70 - 100 MG/DL [facility]IN [facility] Blood Urea Nitrogen 20 7 - 25 MG/DL [facility]IN [facility] Creatinine 1.65 (H) 0.4 - 1.00 MG/DL [facility] Calcium 9.2 8.5 - 10.6 MG/DL [facility] MAIN [facility] eGFR Non 31 (L) >60 mL/min [facility] Comment: The eGFR is not validated for use in drug dosing adjustments.Continue to use estimated creatinine clearance per dosing reference text.Please contact the Clinical Pharmacist for questions. eGFR 37 (L) >60 mL/min [facility] Comment: The eGFR is not validated for use in drug dosing adjustments.Continue to use estimated creatinine clearance per dosing reference text.Please contact the Clinical Pharmacist for questions. Specimen Blood Performing Organization Address City/[facility]/Zipcode Phone Number MAIN LAB [address] [place] [address] * CBC (08/24/2017 3:47 AM) White Blood Cells 9.1 4.5 - 11.0 K/UL [facility] MAIN [facility] RBC 3.77 (L) 4.0 - 5.0 M/UL [facility]IN [facility] Hemoglobin 11.3 (L) 12.0 - 15.0 GM/DL MAIN LAB Hematocrit 34.5 (L) 36 - 45 % [facility] MAIN [facility] MCV 91.4 80 - 100 FL MAIN LAB MCH 30.0 26 - 34 PG MAIN LAB MCHC 32.8 32.0 - 36.0 G/DL MAIN LAB RDW 13.1 11 - 15 % [facility] MAIN LAB Platelet Count 314 150 - 400 K/UL MAIN LAB MPV 7.4 7 - 11 FL MAIN LAB Specimen Blood Performing Organization Address City/[facility] Phone Number [facility] LAB [address] [place] [address] * CULTURE-FUNGAL,OTHER (08/23/2017 12:42 PM) Battery Name FUNGUS CULTURE MAIN LAB Specimen Description TISSUE ANKLE [facility] MAIN LAB RIGHT Special Requests NONE MAIN LAB Culture NO GROWTH OF FUNGUS AT 4 WEEKS [facility] MAIN LAB Report Status FINAL [facility] MAIN LAB 09/22/2017 Specimen Tissue - Ankle Performing Organization Address City/[facility]/Zipcode Phone Number [facility] MAIN [facility] [address] [place] [address] * GRAM STAIN (08/23/2017 12:42 PM) Battery Name GRAM STAIN MAIN LAB Specimen Description TISSUE ANKLE [facility] MAIN LAB RIGHT Special Requests NONE [facility] MAIN LAB Gram Stain MODERATE [facility] MAIN LAB NEUTROPHILS FEW INTRACELLULAR GRAM POSITIVE COCCI RESEMBLING STAPHYLOCOCCI Report Status FINAL MAIN LAB 08/23/2017 Specimen Tissue - Ankle Performing Organization Address City/[facility]/Zipcode Phone Number [facility] MAIN [facility] [address] [place] [address] * CULTURE-WOUND/TISSUE/FLUID(AEROBIC ONLY)W/SENSITIVITY (08/23/2017 12:42 PM) Battery Name ROUTINE CULTURE [facility] MAIN LAB Specimen Description TISSUE ANKLE [facility] MAIN LAB RIGHT Special Requests NONE [facility] MAIN LAB Direct Gram Stain MODERATE [facility] NEUTROPHILS FEW INTRACELLULAR GRAM POSITIVE COCCI RESEMBLING STAPHYLOCOCCI Culture Moderate growth [facility] STAPHYLOCOCCUS AUREUS See previous susceptibility Report Status FINAL [facility] 08/25/2017 Specimen Tissue - Ankle Performing Organization Address City/[facility] Phone Number [facility] [address] [phone] * CULTURE-ANAEROBIC (08/23/2017 12:42 PM) Battery Name ANAEROBE CULTURE [facility] Specimen Description TISSUE ANKLE [facility] RIGHT Special Requests NONE [facility] Culture NO ANAEROBES ISOLATED [facility] Report Status FINAL [facility] 08/28/2017 Specimen Tissue - Ankle Performing Organization Address [facility] Phone Number [facility] [address] [place] [address] * BASIC METABOLIC PANEL (08/23/2017 3:43 AM) Sodium 143 137 - 147 MMOL/L [facility] Potassium 3.8 3.5 - 5.1 MMOL/L [facility] Chloride 108 98 - 110 MMOL/L [facility] CO2 29 21 - 30 MMOL/L [facility] Anion Gap 6 3 - 12 [facility] Glucose 94 70 - 100 MG/DL [facility] Blood Urea Nitrogen 10 7 - 25 MG/DL [facility] Creatinine 0.69 0.4 - 1.00 MG/DL [facility] Calcium 9.1 8.5 - 10.6 MG/DL [facility] eGFR Non >60 >60 mL/min [facility] Comment: The eGFR is not validated for use in drug dosing adjustments.Continue to use estimated creatinine clearance per dosing reference text.Please contact the Clinical Pharmacist for questions. eGFR >60 >60 mL/min [facility] Comment: The eGFR is not validated for use in drug dosing adjustments.Continue to use estimated creatinine clearance per dosing reference text.Please contact the Clinical Pharmacist for questions. Specimen Blood Performing Organization Address [facility]/Zipcode Phone Number MAIN LAB [address] [place] [address] * CBC (08/23/2017 3:43 AM) White Blood Cells 5.6 4.5 - 11.0 K/UL [facility] RBC 3.71 (L) 4.0 - 5.0 M/UL [facility] Hemoglobin 11.0 (L) 12.0 - 15.0 GM/DL [facility] Hematocrit 34.0 (L) 36 - 45 % [facility] MCV 91.8 80 - 100 FL [facility] MCH 29.8 26 - 34 PG [facility] MCHC 32.4 32.0 - 36.0 G/DL [facility] RDW 13.3 11 - 15 % [facility] Platelet Count 269 150 - 400 K/UL [facility] MPV 7.8 7 - 11 FL [facility] Specimen Blood Performing Organization Address City/State/Zipcode Phone Number MAIN LAB [address] [place] [address] * CHEST SINGLE VIEW (08/22/2017 6:49 PM) Impressions Performed At No acute cardiopulmonary abnormality. [facility] RAD RESULTS Approved by Gabriel Umanzor M.D. on 08/23/2017 9:18 AM By my electronic signature, I attest that I have personally reviewed the images for this examination and formulated the interpretations and opinions expressed in this report Finalized by Pavel Quintanilla M.D. on 08/23/2017 12:29 PM. Dictated by Gabriel Umanzor M.D. on 08/23/2017 7:32 AM. Narrative Performed At CHEST SINGLE VIEW [facility] RAD RESULTS Clinical Indication: Female, 72 years old. Preoperative workup Comparison: None Findings: Heart size is normal. No pulmonary vascular congestion. No focal consolidation , pleural effusion, or pneumothorax. Procedure Note Interface, Radiant Results - 08/23/2017 12:33 PM CDT CHEST SINGLE VIEW Clinical Indication: Female, 72 years old. Preoperative workup Comparison: None Findings: Heart size is normal. No pulmonary vascular congestion. No focal consolidation, pleural effusion, or pneumothorax. IMPRESSION No acute cardiopulmonary abnormality. Approved by Gabriel Umanzor M.D. on 08/23/2017 9:18 AM By my electronic signature, I attest that I have personally reviewed the images for this examination and formulated the interpretations and opinions expressed in this report Finalized by Pavel Quintanilla M.D. on 08/23/2017 12:29 PM. Dictated by Gabriel Umanzor M.D. on 08/23/2017 7:32 AM. Performing Organization Address City/[facility] Phone Number [facility] RAD RESULTS * GRAM STAIN (08/22/2017 1:07 PM) Battery Name GRAM STAIN [facility] Specimen Description SWAB [facility] RIGHT FOOT INCISION MEDIAL Special Requests NONE [facility] Gram Stain FEW [facility] NEUTROPHILS FEW RBC'S FEW GRAM POSITIVE COCCI RESEMBLING STAPHYLOCOCCI Report Status FINAL [facility] 08/22/2017 Specimen Swab Performing Organization Address [facility] Phone Number [facility] [address] [place] [address] * GRAM STAIN (08/22/2017 1:07 PM) Battery Name GRAM STAIN [facility] Specimen Description SYNOVIAL FLUID [facility] RIGHT ANKLE Special Requests NONE [facility] Gram Stain MANY [facility] RBC'S RARE NEUTROPHILS NO ORGANISMS SEEN Report Status FINAL [facility] 08/22/2017 Specimen Synovial Fluid Performing Organization Address [facility] Phone Number [facility] [address] [place] [address] * GRAM STAIN (08/22/2017 1:07 PM) Battery Name GRAM STAIN [facility] Specimen Description SWAB [facility] RIGHT FOOT INCISION DORSAL Special Requests NONE [facility] Gram Stain FEW [facility] NEUTROPHILS FEW RBC'S RARE GRAM POSITIVE COCCI RESEMBLING STAPHYLOCOCCI Report Status FINAL [facility] 08/22/2017 Specimen Swab Performing Organization Address [facility] Phone Number [facility] [address] [place] [address] * CULTURE-WOUND/TISSUE/FLUID(AEROBIC ONLY)W/SENSITIVITY (08/22/2017 1:07 PM) Battery Name ROUTINE CULTURE [facility] Specimen Description SWAB [facility] RIGHT FOOT INCISION DORSAL Special Requests NONE [facility] Direct Gram Stain FEW [facility] NEUTROPHILS FEW RBC'S RARE GRAM POSITIVE COCCI RESEMBLING STAPHYLOCOCCI Culture Moderate growth [facility] STAPHYLOCOCCUS AUREUS See susceptibility on duplicate isolate Report Status FINAL [facility] 08/24/2017 Specimen Swab Performing Organization Address [facility] Phone Number [facility] [address] [place] [address] * CULTURE-WOUND/TISSUE/FLUID(AEROBIC ONLY)W/SENSITIVITY (08/22/2017 1:07 PM) Battery Name ROUTINE CULTURE [facility] Specimen Description SWAB MAIN LAB RIGHT FOOT INCISION MEDIAL Special Requests NONE MAIN LAB Direct Gram Stain FEW MAIN LAB NEUTROPHILS FEW RBC'S FEW GRAM POSITIVE COCCI RESEMBLING STAPHYLOCOCCI Culture Moderate growth [facility] STAPHYLOCOCCUS AUREUS Negative for PBP2A, indicating that isolate is MSSA (A) Report Status FINAL MAIN LAB 08/24/2017 Organism ID Moderate growth [facility] STAPHYLOCOCCUS AUREUS Specimen Swab Organism Antibiotic Method Susceptibility Moderate growth Clindamycin RICK (MCG/ML) <=0.5 SUSCEPTIBLE: staphylococcus aureus INTERPRETATION Susceptible Moderate growth Erythromycin RICK (MCG/ML) <=0.5 SUSCEPTIBLE: staphylococcus aureus INTERPRETATION Susceptible Moderate growth Oxacillin RICK (MCG/ML) 0.5 SUSCEPTIBLE: staphylococcus aureus INTERPRETATION Susceptible Moderate growth Vancomycin RICK (MCG/ML) 1 SUSCEPTIBLE: staphylococcus aureus INTERPRETATION Susceptible Moderate growth Tetracycline RICK (MCG/ML) <=0.5 SUSCEPTIBLE: staphylococcus aureus INTERPRETATION Susceptible Moderate growth Trimethsulfa RICK (MCG/ML) <=19 SUSCEPTIBLE: staphylococcus aureus INTERPRETATION Susceptible Moderate growth Method RICK (MCG/ML) RICK (MCG/ML) staphylococcus aureus INTERPRETATION INTERPRETATION Performing Organization Address [facility] Phone Number MAIN LAB [address] [place] [address] * CULTURE-FUNGAL,OTHER (08/22/2017 1:07 PM) Battery [facility] FUNGUS CULTURE MAIN LAB Specimen Description SYNOVIAL FLUID MAIN LAB RIGHT ANKLE Special Requests NONE MAIN LAB Culture NO GROWTH OF FUNGUS AT 4 WEEKS MAIN LAB Report Status FINAL MAIN LAB 09/22/2017 Specimen Synovial Fluid Performing Organization Address [facility] Phone Number MAIN LAB [address] [place] [address] * CULTURE-WOUND/TISSUE/FLUID(AEROBIC ONLY)W/SENSITIVITY (08/22/2017 1:07 PM) Battery Name ROUTINE CULTURE MAIN LAB Specimen Description SYNOVIAL FLUID MAIN LAB RIGHT ANKLE Special Requests NONE MAIN LAB Direct Gram Stain MANY MAIN LAB RBC'S RARE NEUTROPHILS NO ORGANISMS SEEN Culture NO GROWTH 5 DAYS MAIN LAB Report Status FINAL MAIN LAB 08/27/2017 Specimen Synovial Fluid Performing Organization Address [facility] Phone Number MAIN LAB [address] [place] [address] * CRYSTAL ANALYSIS-SYNOVIAL FLUID (08/22/2017 1:02 PM) Color,Synovial Fluid BLOODY RED [facility] Clarity,Synovial Fluid CLOUDY [facility] Crystal Exam,Snovial NO CRYSTALS OBSERVED [facility]IN [facility] Fluid Pathology Signature INTERPRETED BY ANDREW PEÑA M.D. MAIN LAB By the PATH SIGNATURE ABOVE, I attest that I have personally formulated the final interpretation expressed in this report and that the above diagnosis is based upon my examination of the slides and/or other material indicated in this report. Specimen Synovial fluid - Synovial Fluid Performing Organization Address [facility] Phone Number MAIN LAB [address] [place] [address] * CELL COUNT W/DIFF-SYN FLUID (08/22/2017 1:02 [...] fluid - Synovial Fluid Performing Organization Address [facility] Phone Number [facility] [address] [place] [address] * ANKLE MIN 3 VIEWS RIGHT (08/22/2017 11:19 AM) Impressions Performed At Findings/impression: [facility] RAD RESULTS 1. An ankle arthroplasty is in place. Alignment of the ankle arthroplasty is unchanged. There is no evidence of abnormal lucency associated with the components of the ankle arthroplasty. 2. 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 Screw and plate fixation at the site of arthrodesis is noted. There is no evidence of developing bony incorporation at the site of arthrodesis. 3. Lucency involving tuberosity calcaneus consistent with bone graft harvest site. 4. No evidence of a fracture. 5. Soft tissue swelling at the level of the ankle. Finalized by Pavel Quintanilla M.D. on 08/22/2017 1:21 PM. Dictated by Pavel Quintanilla M.D. on 08/22/2017 1:15 PM. Narrative Performed At Right ankle RAD RESULTS CLINICAL DATA: Post operative problem Three projections were acquired. Comparison is made to patient's prior study of 08/07/2017. Procedure Note Interface, Radiant Results - 08/22/2017 1:24 PM CDT Right ankle CLINICAL DATA: Post operative problem Three projections were acquired. Comparison is made to patient's prior study of 08/07/2017. IMPRESSION Findings/impression: 1. An ankle arthroplasty is in place. Alignment of the ankle arthroplasty is unchanged. There is no evidence of abnormal lucency associated with the components of the ankle arthroplasty. 2. 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 Screw and plate fixation at the site of arthrodesis is noted. There is no evidence of developing bony incorporation at the site of arthrodesis. 3. Lucency involving tuberosity calcaneus consistent with bone graft harvest site. 4. No evidence of a fracture. 5. Soft tissue swelling at the level of the ankle. Finalized by Pavel Quintanilla M.D. on 08/22/2017 1:21 PM. Dictated by Pavel Quintanilla M.D. on 08/22/2017 1:15 PM. Performing Organization Address [facility] Phone Number RAD RESULTS * POC LACTATE (08/22/2017 11:17 AM) LACTIC ACID POC 0.8 0.5 - 2.0 MMOL/L [facility]IN [facility] Performing Organization Address [facility] Phone Number [employer] MAIN LAB [address] [place] [address] * C REACTIVE PROTEIN (CRP) (08/22/2017 11:15 AM) C-Reactive Protein 7.87 (H) <1.0 MG/DL [employer] MAIN LAB Specimen Blood Performing Organization Address [facility] Phone Number [employer] MAIN LAB [address] [place] [address] * SED RATE (08/22/2017 11:15 AM) Sed Rate -ESR 60 (H) 0 - 30 MM/HR [employer] MAIN LAB Specimen Blood Performing Organization Address [facility]/Zipcode Phone Number [facility] [address] [place] [address] * COMPREHENSIVE METABOLIC PANEL (08/22/2017 11:15 AM) Sodium 136 (L) 137 - 147 MMOL/L [facility] Potassium 4.0 3.5 - 5.1 MMOL/L [facility] Chloride 103 98 - 110 MMOL/L [facility] Glucose 104 (H) 70 - [...] Pharmacist for questions. eGFR >60 >60 mL/min [facility] Comment: The eGFR is not validated for use in drug dosing adjustments.Continue to use estimated creatinine clearance per dosing reference text.Please contact the Clinical Pharmacist for questions. Specimen Blood Performing Organization Address City/[facility]/Zipcode Phone Number [facility] [address] [place] [address] * CBC AND DIFF (08/22/2017 11:15 AM) White Blood Cells 6.8 4.5 - 11.0 K/UL [facility] RBC 3.83 (L) 4.0 - 5.0 M/UL [facility] Hemoglobin 11.5 (L) 12.0 - 15.0 GM/DL [facility] Hematocrit 35.1 (L) 36 - 45 % [facility] MCV 91.7 80 - 100 FL [facility] MCH 30.0 26 - 34 PG [facility] MCHC 32.7 32.0 - 36.0 G/DL MAIN LAB RDW 13.3 11 - 15 % [facility] Platelet Count 286 150 - 400 K/UL [facility] MPV 7.7 7 - 11 FL [facility] Neutrophils 70 41 - 77 % [facility] Lymphocytes 15 (L) 24 - 44 % [facility] Monocytes 13 (H) 4 - 12 % [facility] Eosinophils 2 0 - 5 % [facility] Basophils 0 0 - 2 % [facility] Absolute Neutrophil Count 4.80 1.8 - 7.0 K/UL [facility] Absolute Lymph Count 1.00 1.0 - 4.8 K/UL [facility] Absolute Monocyte Count 0.80 0 - 0.80 K/UL [facility] Absolute Eosinophil Count 0.10 0 - 0.45 K/UL [facility] Absolute Basophil Count 0.00 0 - 0.20 K/UL [facility] Specimen Blood Performing Organization Address City/State/Zipcode Phone Number MAIN LAB [address] [place] [address] in this encounter Visit Diagnoses Diagnosis Wound infection - Primary Posttraumatic wound infection not elsewhere classified Uncontrolled hypertension Unspecified essential hypertension Acute pulmonary edema (HCC) Acute edema of lung, unspecified Ankle arthritis Unspecified arthropathy, ankle and foot Admitting Diagnoses Diagnosis Wound infection Wound infection Posttraumatic wound infection not elsewhere classified Wound infection Posttraumatic wound infection not elsewhere classified Administered Medications Medication Order MAR Action Action Date Dose Rate Site acetaminophen (TYLENOL) tablet 650 mg Given 08/22/2017 650 mg 650 mg, Oral, EVERY 4 HOURS PRN, 17:37 CDT Starting Fri08/22/17 at 1546, Until Fri08/27/17 at 1206, Pain non-opioid: may be used alone or in combination with opioid analgesia, Temp > 38.5 C, Acetaminophen not to exceed 4g per 24 hours from all sources. ALPRAZolam (XANAX) tablet 0.25 mg Given 09/01/2017 0.25 mg 0.25 mg, Oral, THREE TIMES DAILY PRN, 03:50 CDT Starting Fri08/27/17 at 1751, Until Fri09/02/17 at 1503, Anxiety PO Given 09/01/2017 0.25 mg 21:57 CDT Given 09/02/2017 0.25 mg 03:33 CDT ALPRAZolam (XANAX) tablet 0.5 mg Given 08/23/2017 0.5 mg 0.5 mg, Oral, AT BEDTIME DAILY, First 20:18 CDT dose on Fri08/22/17 at 2100, Until Discontinued Given 08/25/2017 0.5 mg 20:32 CDT Given 08/26/2017 0.5 mg 21:01 CDT amLODIPine (NORVASC) tablet 10 mg Given 08/31/2017 10 mg 10 mg, Oral, DAILY, First dose on Fri 08:22 CDT 08/22/17 at 1600, Until Discontinued, NURSING: Please educate patient and document: Do not give with grapefruit juice. Given 09/01/2017 10 mg 08:18 CDT Given 09/02/2017 10 mg 07:55 CDT aspirin tablet 325 mg Given 08/31/2017 325 mg 325 mg, Oral, DAILY, First dose on Fri 08:22 CDT 08/22/17 at 1600, Until Discontinued Given 09/01/2017 325 mg 08:18 CDT Given 09/02/2017 325 mg 07:54 CDT atorvastatin (LIPITOR) tablet 20 mg Given 08/31/2017 20 mg 20 mg, Oral, DAILY, First dose on Fri 08:22 CDT 08/22/17 at 1600, Until Discontinued Given 09/01/2017 20 mg 08:20 CDT Given 09/02/2017 20 mg 07:54 CDT ceFAZolin (ANCEF) IVP 2 g Given 08/25/2017 2 g 2 g, Intravenous, EVERY 8 HOURS, First 11:37 CDT dose on Fri08/25/17 at 1100, Until Discontinued, IV PUSH -- RECONSTITUTE each 1 g vial by adding 10 mL 0.9% NACL ceFAZolin (ANCEF) IVP 2 g Given 08/26/2017 2 g 2 g, Intravenous, EVERY 12 HOURS, First 23:48 CDT dose on Fri08/25/17 at 2345, Until Discontinued, IV PUSH -- RECONSTITUTE each 1 g vial by adding 10 mL 0.9% NACL Given 08/27/2017 2 g 11:55 CDT Given 08/27/2017 2 g 23:53 CDT cloNIDine (CATAPRESS) tablet 0.1 mg Given 08/30/2017 0.1 mg 0.1 mg, Oral, TWICE DAILY, First dose on 09:40 CDT Fri08/22/17 at 2100, Until Discontinued, Hold for heart rate < 60 bpm or systolic BP < 100 Given 08/30/2017 0.1 mg 21:14 CDT Given 08/31/2017 0.1 mg 08:22 CDT cloNIDine (CATAPRESS) tablet 0.2 mg Given 09/01/2017 0.2 mg 0.2 mg, Oral, TWICE DAILY, First dose on 08:20 CDT Fri08/31/17 at 2100, Until Discontinued, Hold for heart rate < 60 bpm or systolic BP < 100 Given 09/01/2017 0.2 mg 20:08 CDT Given 09/02/2017 0.2 mg 07:54 CDT cyclosporine (RESTASIS) 0.05 % Given 09/01/2017 1 drop ophthalmic emulsion 1 drop 08:24 CDT 1 drop, Both Eyes, TWICE DAILY, First dose on Fri08/22/17 at 2100, Until Discontinued Given 09/01/2017 1 drop 20:08 CDT Given 09/02/2017 1 drop 07:55 CDT DAPTOmycin (CUBICIN) injection 475 mg Given 08/28/2017 475 mg 475 mg (rounded from 476.4 mg=6 mg/kg 12:53 CDT 79.4 kg), 9.5 mL, Intravenous, Administer over 5 Minutes, EVERY 48 HOURS, First dose on Fri08/28/17 at 1145, Until Discontinued, Administer IV-Push over 5 minutes Given 08/30/2017 475 mg 11:45 CDT Given 09/01/2017 475 mg 12:19 CDT diphenhydrAMINE (BENADRYL) capsule 25 mg Given 09/01/2017 25 mg 25 mg, Oral, EVERY 6 HOURS PRN, 03:50 CDT Starting Fri08/22/17 at 1546, Until Fri09/02/17 at 1503, Insomnia, Itching PO Given 09/01/2017 25 mg 21:57 CDT Given 09/02/2017 25 mg 03:33 CDT diphenhydrAMINE (BENADRYL) injection 25 mg 25 mg, Intravenous, EVERY 6 HOURS PRN, Starting Fri08/22/17 at 1546, Until Fri09/02/17 at 1503, Insomnia, Itching Injectable docusate (COLACE) capsule 100 mg Given 08/23/2017 100 mg 100 mg, Oral, TWICE DAILY, First dose on 18:06 CDT Fri08/22/17 at 1700, Until Discontinued, Hold for loose stools Given 08/24/2017 100 mg 08:02 CDT Given 08/28/2017 100 mg 08:[address] (CYMBALTA) capsule 60 mg Given 08/25/2017 60 mg 60 mg, Oral, AT BEDTIME DAILY, First 20:38 CDT dose on Fri08/22/17 at 2100, Until Discontinued Given 08/26/2017 60 mg 21:01 CDT Given 08/27/2017 60 mg 20:[address] (CYMBALTA) capsule 90 mg 90 mg, Oral, AT BEDTIME DAILY, First dose on Fri09/02/17 at 2100, Until Discontinued fentaNYL citrate PF (SUBLIMAZE) Given 08/23/2017 50 mcg injection 25-50 mcg 16:05 CDT 25-50 mcg, Intravenous, EVERY 1 HOUR PRN, Starting Fri08/22/17 at 1546, Until Fri09/02/17 at 1503, Pain Injectable, Begin once PNC/MOBILE APPLICATION ENGINEER has been discontinued. furosemide (LASIX) injection 40 mg Given 08/27/2017 40 mg 40 mg, Intravenous, ONCE, 1 dose, Wed 16:36 CDT 08/27/17 at 1630, PROTECT FROM LIGHT furosemide (LASIX) injection 40 mg Given 08/27/2017 40 mg 40 mg, Intravenous, ONCE, 1 dose, Wed 20:52 CDT 08/27/17 at 2030, PROTECT FROM LIGHT furosemide (LASIX) injection 40 mg Given 08/28/2017 40 mg 40 mg, Intravenous, ONCE, 1 dose, Olivia 10:26 CDT 08/28/17 at 1030, PROTECT FROM LIGHT furosemide (LASIX) injection 40 mg Given 08/28/2017 40 mg 40 mg, Intravenous, EVERY 8 HOURS, 18:21 CDT First dose on Olivia 08/28/17 at 1800, Until Discontinued, PROTECT FROM LIGHT Given 08/29/2017 40 mg 01:10 CDT Given 08/29/2017 40 mg 10:07 CDT furosemide (LASIX) injection 40 mg Given 08/30/2017 40 mg 40 mg, Intravenous, ONCE, 1 dose, Sat 08:13 CDT 08/30/17 at 0815, PROTECT FROM LIGHT furosemide (LASIX) injection 40 mg Given 08/30/2017 40 mg 40 mg, Intravenous, ONCE, 1 dose, Sat 15:53 CDT 08/30/17 at 1545, PROTECT FROM LIGHT furosemide (LASIX) tablet 40 mg Given 08/23/2017 40 mg 40 mg, Oral, EVERY MORNING, First dose 08:04 CDT on Fri08/22/17 at 1600, Until Discontinued furosemide (LASIX) tablet 40 mg Given 09/01/2017 40 mg 40 mg, Oral, TWICE DAILY, First dose on 08:20 CDT Fri08/29/17 at 1700, Until Discontinued Given 09/01/2017 40 mg 18:52 CDT Given 09/02/2017 40 mg 07:54 CDT furosemide (LASIX) tablet 40 mg 40 mg, Oral, DAILY, First dose on Fri09/03/17 at 0900, Until Discontinued FUROSEMIDE 10 MG/ML IJ SOLN (Cabinet Override) NOW, 1 dose, [facility] 08/28/17 at 1015, Created by hans francis hydrALAZINE (APRESOLINE) injection 10 mg Given 08/31/2017 10 mg 10 mg, Intravenous, EVERY 6 HOURS PRN, 07:12 CDT Starting Fri08/27/17 at 0223, Until Fri09/02/17 at 1503, Blood Pressure..., Systolic Blood Pressure..., for systolic >180 Given 08/31/2017 10 mg 21:11 CDT Given 09/01/2017 10 mg 19:18 CDT HYDROcodone/acetaminophen (NORCO) 5/325 Given 08/27/2017 2 tablets mg tablet 1-2 tablet 02:19 CDT 1-2 tablet, Oral, EVERY 4 HOURS PRN, Starting Fri08/22/17 at 1609, Until Fri08/27/17 at 1206, Pain PO, TOTAL ACETAMINOPHEN DOSE NOT TO EXCEED 4GM DAILY NOTE: This is a HIGH ALERT Medication. Given 08/27/2017 2 tablets 06:11 CDT Given 08/27/2017 2 tablets 11:02 CDT HYDROcodone/acetaminophen (NORCO) 5/325 Given 09/01/2017 2 tablets mg tablet 1-2 tablet 03:50 CDT 1-2 tablet, Oral, EVERY 3 HOURS PRN, Starting Fri08/27/17 at 1213, Until Fri09/02/17 at 1503, Pain PO, TOTAL ACETAMINOPHEN DOSE NOT TO EXCEED 4GM DAILY NOTE: This is a HIGH ALERT Medication. Given 09/01/2017 2 tablets 21:57 CDT Given 09/02/2017 1 tablet 03:33 CDT hydrocortisone 2.5 % topical cream Given 08/31/2017 Topical, TWICE DAILY, First dose on Olivia 20:56 CDT 08/28/17 at 1145, Until Discontinued, Apply to rash bid prn itching Given 09/01/2017 08:22 CDT Given 09/01/2017 20:07 CDT HYDROmorphone injection (DILAUDID) Given 08/26/2017 0.5 mg injection 0.5 mg 14:17 CDT 0.5 mg, Intravenous, EVERY 15 MIN PRN, 4 doses, Starting Fri08/26/17 at 1353, Until Fri08/26/17 at 1655, Pain Injectable, For Pain Score 7-10, Maximum total dose of 2 mg Hold for RR <10 Given 08/26/2017 0.5 mg 14:32 CDT Given 08/26/2017 0.5 mg 14:50 CDT ketorolac (TORADOL) injection 30 mg Given 08/23/2017 30 mg 30 mg, Intravenous, EVERY 6 HOURS, 20 20:17 CDT doses, First dose on 08/23/17 at 1930, Last dose on Olivia 08/28/17 at 1330, Please note: this medication will be automatically discontinued 5 days after ordered per hospital policy. Please obtain a new order if the medication needs to be continued. Given 08/24/2017 30 mg 01:18 CDT lactobacillus rhamnosus GG (CULTURELLE) Given 09/01/2017 1 capsule 15 billion cell capsule 1 capsule 08:20 CDT 1 capsule, Oral, TWICE DAILY WITH MEALS, First dose on Fri08/26/17 at 1800, Until Discontinued Given 09/01/2017 1 capsule 18:52 CDT Given 09/02/2017 1 capsule 07:55 CDT latanoprost (XALATAN) 0.005 % ophthalmic Given 08/30/2017 1 drop solution 1 drop 21:13 CDT 1 drop, Both Eyes, AT BEDTIME DAILY, First dose on Fri08/22/17 at 2100, Until Discontinued Given 08/31/2017 1 drop 20:56 CDT Given 09/01/2017 1 drop 20:07 CDT lisinopril (PRINIVIL; ZESTRIL) tablet 40 Given 08/23/2017 40 mg mg 09:29 CDT 40 mg, Oral, DAILY, First dose on Fri08/22/17 at 1600, Until Discontinued milk of magnesia (CONC) oral suspension Given 08/23/2017 10 mL 10 mL 20:17 CDT 10 mL, Oral, DAILY, First dose on Fri08/22/17 at 2100, Until Discontinued, Administer daily until patient has return of normal bowel function, then give daily PRN constipation. 10 mL CONC=30 mL MOM Given 08/26/2017 10 mL 21:01 CDT nebivolol (BYSTOLIC) tablet 10 mg Given 08/31/2017 10 mg 10 mg, Oral, TWICE DAILY, First dose on 08:22 CDT Fri08/22/17 at 2100, Until Discontinued, Hold for heart rate < 60 bpm or systolic BP < 100 Given 08/31/2017 10 mg 20:57 CDT Given 09/01/2017 10 mg 08:20 CDT nebivolol (BYSTOLIC) tablet 20 mg Given 09/01/2017 20 mg 20 mg, Oral, TWICE DAILY, First dose on 20:08 CDT Fri09/01/17 at 2100, Until Discontinued, Hold for heart rate < 60 bpm or systolic BP < 100 Given 09/02/2017 20 mg 07:54 CDT nystatin (MYCOSTATIN) oral suspension Given 09/01/2017 500,000 500,000 Units 18:52 CDT Units 500,000 Units, Oral, FOUR TIMES DAILY, First dose on Fri09/01/17 at 1030, Until Discontinued Given 09/01/2017 500,000 21:56 CDT Units Given 09/02/2017 500,000 07:53 CDT Units ondansetron (ZOFRAN) injection 4 mg Given 08/23/2017 4 mg 4 mg, Intravenous, EVERY 6 HOURS PRN, 20:17 CDT Starting Fri08/22/17 at 1546, Until Fri08/25/17 at 1124, Nausea/Vomiting Injectable Given 08/24/2017 4 mg 15:52 CDT Given 08/25/2017 4 mg 08:06 CDT ondansetron (ZOFRAN) injection 4-8 mg Given 08/25/2017 4 mg 4-8 mg, Intravenous, EVERY 6 HOURS PRN, 11:37 CDT Starting Fri08/25/17 at 1123, Until Fri09/02/17 at 1503, Nausea/Vomiting Injectable Given 08/25/2017 4 mg 16:40 CDT Given 08/25/2017 4 mg 20:32 CDT oxyCODONE (ROXICODONE, OXY-IR) tablet 5 Given 08/26/2017 5 mg mg 14:16 CDT 5 mg, Oral, ONCE PRN, 1 dose, Starting Fri08/26/17 at 1353, Until Fri08/26/17 at 1416, Pain PO, For Pain Score <4, PACU (only) piperacillin/tazobactam (ZOSYN) 3.375 Given - New 08/24/2017 3.375 g 100 mL/hr g/50 mL iso-osmotic IVPB Bag 17:16 CDT 3.375 g, Intravenous, at 100 mL/hr, EVERY 6 HOURS, First dose on Fri08/22/17 at 1600, Until Discontinued Given - New Bag 08/24/2017 3.375 g 100 mL/hr 23:15 CDT Given - New Bag 08/25/2017 3.375 g 100 mL/hr 05:03 CDT polyethylene glycol 3350 (MIRALAX) Given 08/23/2017 17 g packet 17 g 20:18 CDT 17 g (1 packet), Oral, DAILY, First dose on Fri08/23/17 at 2100, Until Discontinued, 8.5 GRAMS=0.5 PACKET 17 GRAMS=1 PACKET 34 GRAMS=2 PACKETS Given 08/24/2017 17 g 08:01 CDT potassium chloride SR (K-DUR) tablet 20 Given 08/23/2017 20 mEq mEq 09:29 CDT 20 mEq, Oral, DAILY, First dose on Fri08/22/17 at 1600, Until Discontinued, - Tablet may be dispersed in water. Place tab in 30 mL of water for 40-60 seconds. - Gently swirl until fully dispersed. If particles remain after admin, add small amount of water and admin remaining content. - DO NOT CRUSH. Tablet may be split in half. potassium chloride SR (K-DUR) tablet 40 Given 08/30/2017 40 mEq mEq 13:56 CDT 40 mEq, Oral, ONCE, 1 dose, 08/30/17 at 1345, - Tablet may be dispersed in water. Place tab in 30 mL of water for 40-60 seconds. - Gently swirl until fully dispersed. If particles remain after admin, add small amount of water and admin remaining content. - DO NOT CRUSH. Tablet may be split in half. potassium chloride SR (K-DUR) tablet 40 Given 08/31/2017 40 mEq mEq 16:12 CDT 40 mEq, Oral, ONCE, 1 dose, 08/31/17 at 1515, - Tablet may be dispersed in water. Place tab in 30 mL of water for 40-60 seconds. - Gently swirl until fully dispersed. If particles remain after admin, add small amount of water and admin remaining content. - DO NOT CRUSH. Tablet may be split in half. prochlorperazine (COMPAZINE) injection Given 08/25/2017 10 mg 10 mg 12:49 CDT 10 mg, Intravenous, EVERY 6 HOURS PRN, Starting 08/25/17 at 1123, Until Fri09/02/17 at 1503, Nausea/Vomiting Injectable, Nausea/Vomiting not relieved by Ondansetron, PROTECT FROM LIGHT -- May be given undiluted, or each 5mg may be diluted with 9 mL of NS to facilitate titration. rifAMPin (RIFADINE) capsule 300 mg Given 08/29/2017 300 mg 300 mg, Oral, TWICE DAILY, First dose on 10:11 CDT 08/25/17 at 1000, Until Discontinued, NURSING: Please educate patient and document: Give on empty stomach, 1 hour before or 2 hours after meals. Given 08/29/2017 300 mg 21:23 CDT Given 08/30/2017 300 mg 09:40 CDT rifAMPin (RIFADINE) capsule 300 mg Given 09/01/2017 300 mg 300 mg, Oral, TWICE DAILY, First dose on 12:20 CDT 09/01/17 at 1245, Until Discontinued, NURSING: Please educate patient and document: Give on empty stomach, 1 hour before or 2 hours after meals. Given 09/01/2017 300 mg 20:08 CDT Given 09/02/2017 300 mg 07:55 CDT senna (SENOKOT) tablet 1 tablet Given 08/23/2017 1 tablet 1 tablet, Oral, TWICE DAILY, First dose 20:18 CDT on 08/23/17 at 2100, Until Discontinued, Hold for loose stools Given 08/24/2017 1 tablet 08:02 CDT Given 08/26/2017 1 tablet 21:49 CDT sodium chloride 0.9 % infusion Given - New 08/22/2017 100 mL/hr 1,000 mL, Intravenous, at 100 mL/hr, Bag 17:05 CDT CONTINUOUS, Starting Fri08/22/17 at 1600, Until Fri08/23/17 at 1820 sodium chloride 0.9 % infusion Given - New 08/25/2017 100 mL/hr 1,000 mL, Intravenous, at 100 mL/hr, Bag 10:59 CDT CONTINUOUS, Starting Fri08/24/17 at 0700, Until Fri08/26/17 at 0659 Given - New Bag 08/25/2017 100 mL/hr 22:07 CDT Given - New Bag 08/26/2017 100 mL/hr 08:28 CDT sodium chloride 0.9 % infusion Given - New 08/26/2017 100 mL/hr 1,000 mL, Intravenous, at 100 mL/hr, Bag 20:59 CDT CONTINUOUS, Starting Fri08/26/17 at 1900, Until Fri08/27/17 at 1209, Pre-Op Given - New Bag 08/27/2017 100 mL/hr 04:58 CDT Given - New Bag 08/27/2017 100 mL/hr 11:55 CDT timolol maleate (TIMOPTIC) 0.5 % Given 08/31/2017 1 drop ophthalmic drops 1 drop 08:22 CDT 1 drop, Both Eyes, DAILY, First dose on Fri08/22/17 at 1600, Until Discontinued Given 09/01/2017 1 drop 08:23 CDT Given 09/02/2017 1 drop 07:52 CDT vancomycin (VANCOCIN) 1,000 mg in D5W Given - New 08/23/2017 1 g 200 mL/hr 200mL IVPB (premade) Bag 05:37 CDT 1 g, Intravenous, 200 mL, Administer over 60 Minutes, EVERY 12 HOURS, First dose on Fri08/23/17 at 0530, Until Discontinued Given 08/23/2017 1 g 12:24 CDT Given - New Bag 08/23/2017 1 g 200 mL/hr 18:23 CDT vancomycin (VANCOCIN) 1,250 mg in Given - New 08/22/2017 1,250 mg 275 mL/hr dextrose 5% (D5W) IVPB Bag 18:09 CDT 1,250 mg (rounded from 1,191 mg=15 mg/kg 79.4 kg), Intravenous, 275 mL, Administer over 60 Minutes, ONCE, 1 dose, Fri08/22/17 at 1730, Note Pharmacokinetic Monitoring: Please record infusion start time (Action=Given) and stop time (Action=Completed) of dose when blood levels are drawn. in this encounter
--- OUTSIDE RECORDS SUMMARY | 2017-09-23 16:41 | XMS REPORT | Encounter Summary ---
Author Author [facility] Organization [facility] Address Unknown Phone Unavailable Care Team Providers Care Community Manager Name Role Phone Joao Mccabe MD Unavailable Vadim Waggoner MD PCP Encounter Details Date Type Department Care Team Description 08/23/2017 Procedure Pass Main Operating Room [facility] 2nd fl [address] [place] [address] Social History Tobacco Use Types Packs/Day Years [...]
--- OUTSIDE RECORDS SUMMARY | 2017-09-23 16:41 | XMS REPORT | Encounter Summary ---
Author Author [facility] Organization [facility] Address Unknown Phone Unavailable Care Team Providers Care Waredresser Name Role Phone Joao Clemons MD Unavailable Vadim Waggoner MD PCP Reason for Visit * Reason Comments Post-Op Problem total right ankle replacement 5 weeks ago on 07/18/17 * Auth/Cert Status Reason Specialty Diagnoses / Referred By Referred To Procedures Contact Contact Diagnoses Wound infection Wound infection Encounter Details Date Type Department Care Team Description 08/26/2017 Surgery Main Operating Room Joao Clemons MD DEBRIDEMENT [facility] 2nd fl [address] EXTREMITY, ankle poly [address] [place] [address] [place] [address] [phone] Social History Tobacco Use Types Packs/Day Years [...] was applied. PICC line was placed and usp IV abx was established. The patient was [...] ID, Internal Medicine and Nephrology Patient Disposition: Intermediate Facility Patient instructions/medications: Activity as Tolerated It [...] 4:30 PM) Call the Orthopedic clinic at [phone] AFTER BUSINESS HOURS AND WEEKENDS Call [phone] and ask the lawn mower operator to page the on-call Orthopedic Resident. Discharging attending physician: JOAO CLEMONS [[id number]] Regular Diet You have no dietary restriction. Please continue with a healthy balanced diet. While taking pain medications: - Drink plenty of fluids (not including alcohol) - Add extra fiber to your diet - Continue your stool softeners to help prevent constipation Complete if patient is going to a Intermediate Facility I certify that the patient requires skilled care Yes The patient's stay is expected to be less than 30 days Yes I will be in charge of patient in long-term No Wound Care Keep wound clean and [...] than 100 degrees Return Appointment Please call [phone] or [phone] to make or confirm post op appointment. Provider JOAO CLEMONS [[id number]] Opioid (Narcotic) Safety Information OPIOID (NARCOTIC) PAIN [...] maintain regular, soft bowel movements. PICC Line Assisted Care Instructions: *Catheter must be covered with [...] change instructions. Return Appointment Dr. Reyes at [facility]. Appointment date: 12/01/2017 Appointment time: 2:00 PM [...] 4:30 PM) Call the Orthopedic clinic at [phone] AFTER BUSINESS HOURS AND WEEKENDS Call [phone] and ask the lawn mower operator to page the on-call Orthopedic Resident. Discharging attending physician: JOAO CLEMONS [[id number]] Regular Diet You have no dietary restriction. [...] fever greater than 100 degrees PICC Line Assisted Care Instructions: *Catheter must be covered with [...] instructions. Return Appointment [facility] Provider JOAO CLEMONS [[id number]] Appointment date: 09/16/2017 Appointment time: 12:30 PM [...] instructed to follow up as indicated above. Jamil Madrid Pager [phone] 09/04/2017 cc: Primary Care Physician: Verified Referring [...] RN - 09/02/2017 1:03 PM CDT Steff Azul discharged on 09/02/2017. . Discharge instructions reviewed [...] Recent Labs 08/31/17 0330 09/01/17 0350 09/02/17 033 HGB 10.4* 10.7* 9.7* HCT 31.5* 32.2* [...] Mechanical, Chemoprophylaxis Patient is being followed by [facility], ID, Nephrology for number of conditions developed or discovered in the hospital including ONI, pulmonary edema, and MGUS. Recovering. Dispo: discharge today to [facility] Ashlee Gorman * Tamiko Vargas MD - 09/02/2017 8:16 [...] weekly for ID- lasb faxed to ID [id number]. Renal would like labs every few days [...] [phone] Infectious Diseases Faculty * Faustina Hobson, HAT SIZER-BALLET PROFESSOR - 09/02/2017 7:49 AM CDT Formatting of [...] - recent Echo (per patient report) at [facility] in [place], which was normal ; attempted to obtain report but has arrived Diarrhea- has occurred since starting antibiotics, C.diff negative on 08/25, repeat C.diff negative 09/01 Thrush- started on nystatin HTN- uncontrolled - REGISTRATION COORDINATOR regimen of amlodipine 10mg daily, clonidine 0.1mg bid, nebivolol 10mg bid , lisinopril 40mg daily - REGISTRATION COORDINATOR lisinopril held due to ONI - SBP 140-170s Monoclonal M-spike on SPEP, Anemia - likely MGUS in the setting of no lytic lesions on skeletal survey - discovered during workup of ONI - skeletal survey (08/28) with no evidence of lytic lesions - urine PARMJIT with free kappa light chain - Hematology consulted; will follow up outpatient Hematology [facility] - will start on iron on discharge [...] rifampin being held for now HLD- continue REGISTRATION COORDINATOR atorvastatin and ASA Recommendations: - continue supportive [...] needs further assistance, the service should page [phone] (24 hours a day/7 days a week) to discuss the case. Faustina Hobson APRN-BALLET PROFESSOR Pager [phone] Subjective Steff Azul is a 72 y.o. [...] 509) O2 Delivery: None (Room Air) (09/02 0510) BP: (146-189)/(56-91) Temp: [36.6 C (97.8 F)-36.9 [...] 24 hours) Glucose: (!) 110 (09/02/17 0330) Faustina Hobson APRN-BALLET PROFESSOR Pager [phone] Consult Pager [phone] Associated attestation - Nikolai Menchaca MD - [...] Echo reportedly normal done in June in [facility] [place]. Currently on Lasix twice daily for pulmonary [...] leg with splint and cast in place EQUIPMENT SPECIALIST: alert and oriented to PPT Lab Review [...] (Last 24 hours) Glucose: (!) 110 (09/02/17 3150) Radiology and other Diagnostics Review: Pertinent radiology reviewed. Staff name: Nikolai Menchaca MD Date: 09/02/17 Med-private Team consult Team Pager [phone] * Ayesha Gunderson, LELAND - 09/01/2017 7:52 PM CDT Formatting of [...] or orange juice -arranged f/u with @ [facility] in [place], [place] on 12/01 @ 2pm. Will fax [...] hours) Intake/Output Summary (Last 24 hours) at 09/01/171951 Last data filed at 09/01/17 1647 Gross [...] Diagnostics Review: Pertinent radiology reviewed. Ayesha Gunderson, HAT SIZER Pager [phone] * Glo Vidal MD - 09/01/2017 5:51 [...] need CBC CMP ESR/CRP faxed to ID [id number]. FU in ID clinic in 2-3 [...] (COLACE) capsule 100 mg 100 mg Oral BID(10-27) furosemide (LASIX) tablet 40 mg 40 mg [...] Pager [phone] Infectious Diseases Faculty * Faustina Hobosn APRN-JON - 09/01/2017 8:17 AM CDT Formatting of [...] - recent Echo (per patient report) at [facility] in [place], which was normal Leukocytosis - WBC 12.3, Afebrile - recent CXR (08/30) with no acute process Diarrhea- has occurred since starting antibiotics, C.diff negative on 08/25. Thrush- patient reports oral pain and white patches on tongue HTN- uncontrolled - REGISTRATION COORDINATOR regimen of amlodipine 10mg daily, clonidine 0.1mg bid, nebivolol 10mg bid , lisinopril 40mg daily - REGISTRATION COORDINATOR lisinopril held due to ONI - SBP [...] rifampin being held for now HLD- continue REGISTRATION COORDINATOR atorvastatin and ASA Recommendations: - continue supportive care for ONI; creatinine improving - obtain BNP (ordered) - obtain Echo results from [facility] (ordered) - continue Lasix 40mg BID for [...] needs further assistance, the service should page [phone] (24 hours a day/7 days a week) to discuss the case. Faustina Hobson APRN-BALLET PROFESSOR Pager [phone] Subjective Steff Azul is a 72 y.o. female. Patient reports doing well today. Is possibly discharging to a long-term today for a few weeks to improve [...] Glucose: (!) 117 (09/01/17 0350) Faustina Hobson APRN-BALLET PROFESSOR Pager [phone] Consult Pager [phone] Associated attestation - Nikolai Menchaca MD - [...] Echo reportedly normal done in June in [facility] [place]. Currently on Lasix twice daily for pulmonary [...] --To get actual report of echocardiogram from [facility] --Contemplate on discontinuing Lasix at discharge --Nystatin [...] edema on the on both lower extremities. EQUIPMENT SPECIALIST: No focal neurologic deficit Lab Review 24-hour [...] MD Date: 09/01/17 Med-Consult team Team Pager [phone] * Jamil Madrid - 09/01/2017 7:31 AM [...] intact. Complete Blood Counts Recent Labs 08/30/17 0350 08/31/17 0330 09/01/17 0350 HGB 10.6* 10.4* 10.7* HCT 32.2* 31.5* 32.2* WBC 9.2 10.2 12.3* PLTCT 414* 402* 474* Chemistry Panel Recent Labs 08/30/17 0350 08/31/17 0330 09/01/17 [...] today for 1st post op visit. [facility] * Ronnie Resendiz MD - 08/31/2017 2:55 [...] to restart on discharge HTN -BPs: 165-189/69-92 -lpta amlodipine 10mg daily, clonidine 0.1mg bid, nebivolol [...] meq on discharge until off lasix Disposition long-term facility Please have SW check with long-term facility if the patient can be discharged on Daptomycin as it is expensive and some SNF may not accept the patient on this medication FEN: No IVF, Reg diet, lytes prn PPX: SCDs, chemoprophylaxis Ronnie Resendiz MD 1421 Subjective Pt feels less shortness of breath [...] (08/31 1340) Temp: 36.8 C (98.3 F) (09/01 1339) Pulse: 88 (09/01 1339) Respirations: 18 PER MINUTE (09/01 1339) SpO2: 97 % (09/01 1339) O2 Delivery: None (Room Air) (09/01 1339) BP: (157-184)/(65-98) Temp: [36.3 C (97.4 F)-37.1 C (98.7 F)] Pulse: [83-94] Respirations: [16 PER MINUTE-29 PER MINUTE] SpO2: [96 %-100 %] O2 Delivery: None (Room Air) Intensity Pain Scale 0-10 (Pain 1): 8 (08/30/17 2114) Vitals: 08/22/17 1041 Weight: 79.4 kg (175 [...] Date: 08/31/2017 Roberson AC=Airway clearance AM=Aerosolized medication BA=Derby aerosol DB&C=Deep breathe & cough FEV1=Forced expiratory volume in first second) IC=Inspiratory capacity LE=Lung expansion MDI=Metered dose inhaler Neb=Nebulizer O2=Oxygen Oxim=Oximetry PEFR=Peak expiratory flow rate PERSONAL SUPPORT WORKER=Rapid Response Team * Dmitriy Arguelles MD - [...] 08/26 with poly exchange. Hospital course included OIN pulmonary edema and a workup for MGUS. [...] to discharge Friday. Will need datpo at [facility] Blane Rodriguez * Tamiko Vargas MD - 08/30/2017 4:44 [...] on RA, lungs clear to auscultation. Time MD/BALLET PROFESSOR Notified: [phone] MD/BALLET PROFESSOR Name: Dr. Martín PISANO/BALLET PROFESSOR Response: Okay to give dose of 40mg [...] likely restart on discharge HTN -BPs: 165-189/69-92 -lpta amlodipine 10mg daily, clonidine 0.1mg bid, nebivolol [...] Hypokalemia replace kcl 40 meq po Disposition long-term facility Please have SW check with long-term facility if the patient can be discharged on Daptomycin as it is expensive and some SNF may not accept the patient on this medication FEN: No IVF, Reg diet, lytes prn PPX: SCDs, chemoprophylaxis Ronnie Resendiz MD 2459 Subjective the patient felt increased shortness of [...] Signs: 24 Hour Range BP: 172/79 (08/30 105) Temp: 36.8 C (98.3 F) (08/30 105) Pulse: 78 (08/30 1058) Respirations: 19 PER MINUTE (08/30 105) SpO2: 97 % (08/30 1058) O2 Delivery: None (Room Air) (08/30 105) BP: (161-193)/(76-91) Temp: [36.2 C (97.2 F)-37.3 [...] trouble breathing via pt and nurse. Aide: Dmirtiy Fernández Date: 08/30/2017 * Yamini Slaughter RN - 08/30/2017 10:[address] Garcia with medicine consult notified of RR and [address] order for chest x-ray and have respiratory therapy see patient. Dr. Resendiz will be by to see patient. * Yamini Slaughter, YASMANI - 08/30/2017 8:05 AM CDT Patient Problem called about: (document change in assessment or concern): Pt feeling RR 32bpm, 100% on 3L. Patient states she feels like she did when her first bout of pulmonary edema occurred. Refusing PO lasix and requesting IV lasix. Time MD/BALLET PROFESSOR Notified: [phone] MD/BALLET PROFESSOR Name: Dr. Blane PISANO/BALLET PROFESSOR Response: If unable to get a hold [...] 08/29/2017 2:53 PM CDT Reason for Visit: Proposal Analyst followup Jacqueline/Roman Catholic: na Source of Purpose/Meaning: na Worries/Concerns/Struggles: :Last [...] of Coping: Support System: Interventions/Plan: * Jackelin Blue, PT - 08/29/2017 1:45 PM CDT PHYSICAL [...] Jackelin Blue, PT Date: 08/29/2017 * Karina August DO - 08/29/2017 11:25 AM CDT Formatting [...] no erythema Lab Review Hematology Recent Labs 08/27/173 08/28/17 0304 08/29/17 0430 WBC 8.4 11.4* 8.7 HGB 10.6* 10.9* 10.1* HCT 31.7* 33.0* 28.8* PLTCT 288 384 333 Chemistry Recent Labs 08/27/1734208/28/17 0304 08/29/17 0430 NA 136* 135* 135* K 4.3 3.9 3.5 CL 106 103 101 CO2 21 23 27 BUN 25 28* 38* CR 3.20* 3.28* 2.98* GFR 14* 14* 16* GLU 113* 125* 120* CA 8.8 9.1 8.8 Microbiology, Radiology and other Diagnostics Review Microbiology data reviewed. Pertinent radiology images viewed. CXR 08/28 with bl pulm edema Karina August DO Pager [phone] Infectious Diseases Faculty * Glo Vidal MD [...] States she was on lasix 40 po/d REGISTRATION COORDINATOR. Usual wt 175 lbs. Received 2 doses [...] >PO Lasix 40mg bid HTN -BPs: 165-189/69-92 -lpta amlodipine 10mg daily, clonidine 0.1mg bid, nebivolol [...] Signs: 24 Hour Range BP: 174/83 (08/29 1454) Temp: 36.4 C (97.6 F) (08/29 1454) Pulse: 90 (08/29 1454) Respirations: 14 PER MINUTE (08/29 1454) SpO2: 97 % (08/29 1454) O2 Delivery: None (Room Air) (08/29 1454) [...] Carlos Jama, Date: 08/29/2017 Internal Medicine, Hospitalist [phone] * Franklin Nur MD - 08/29/2017 7:29 [...] with consulted services. Franklin Nur MD Pager [phone] * Tyesha Fitzgerald DO - 08/28/2017 5:21 [...] and discussed with Dr. Abarca. Tyesha Fitzgerald, PGY-2 Pager [phone] Subjective Steff Azul is a 72 y.o. [...] Pertinent radiology reviewed. Tyesha Fitzgerald DO Pager [phone] Associated attestation - Parviz Abarca MD - [...] why the scheduled lasix was ordered. Paged [phone]. * Jackelin Blue, PT - 08/28/2017 2:15 [...] PM CDT Reason for Visit: jade visit Jacqueline/Roman Catholic: confucianist Source of Purpose/Meaning: God==4 dogs=,friends Worries/Concerns/Struggles: Patient [...] She attends and is active in a synagogue in [place], [place] and they are in touch wither [...] as needed, 02/09, through the campus switchboard ([phone]). For immediate response, please page [phone]. For a response within 24 hours, please submit an order in O2 for a bag machine tender consult or call the administrative voicemail at [phone]. Ciro Maurer, RT - 08/28/2017 12:56 PM [...] Date: 08/28/2017 Roberson AC=Airway clearance AM=Aerosolized medication BA=Derby aerosol DB&C=Deep breathe & cough FEV1=Forced expiratory volume in first second) IC=Inspiratory capacity LE=Lung expansion MDI=Metered dose inhaler Neb=Nebulizer O2=Oxygen Oxim=Oximetry PEFR=Peak expiratory flow rate PERSONAL SUPPORT WORKER=Rapid Response Team * Karina August, DO - [...] Signs: 24 Hour Range BP: 188/88 (08/28 1018) Temp: 36.4 C (97.5 F) (08/28 1018) Pulse: 76 (08/28 1018) Respirations: 18 PER MINUTE (08/28 1018) SpO2: 97 % (08/28 1018) O2 Delivery: Nasal Cannula (08/28 1018) BP: [...] bl pulm edema Karina August DO Pager [phone] Infectious Diseases Faculty * Glo Vidal MD - 08/28/2017 9:35 AM CDT Formatting of this note may be different from the original. General Progress Note Admission Date: 08/22/2017 LOS: 6 days Assessment/Plan: ONI--DDx incl med tox (NSAID, ACEI) vs AIN. UO brisk yest, though Cr without sig change X sev days. --no need for PERSONAL SUPPORT WORKER at this time SOB--DDx incl pulm edema [...] Low-High Color,UA YELLOW Turbidity,UA CLEAR CLEAR-CLEAR Specific Brewster-Urine 1.004 1.003 - 1.035 pH,UA 5.0 5.0 [...] needed to evaluate for atrial fibrillation our recreational counselor to the patient and recommendations were appropriate [...] Salas MD [facility] Trans[facility] Visitor Services Associate clothing pattern preparer Director Division of Advanced Heart Failure & Cardiac Transplantation UNOS Primary Transplant Physician Filing Or Registry Clerk, [facility] [email or web address] * Franklin Nur MD - 08/28/2017 7:17 [...] - Mechanical, Chemoprophylaxis Franklin Nur MD Pager [phone] * Sydnie Valerio RN - 08/27/2017 8:20 PM CDT Pt BP 177/84, RR 26, and c/o SOB. Mild auditory wheezes and fine crackles in bilateral lower lobes. Dr. Sinclair notified and order received to administer another one time dose 40mg of IV lasix. Langford in place and pt diuresing ~118ml/ hr. HOB elevated and pt states this helps some with her breathing. Update 2245: Pt states breathing has improved following lasix. BP stable/slowly decreasing. Per ortho on-call, administer PRN hydralazine when available at 2345 if still hypertensive. * Mona Aguirre RN - 08/27/2017 2:33 PM CDT Formatting [...] Blue, PT Date: 08/27/2017 * Karina August, DO - 08/27/2017 12:20 PM CDT Formatting of [...] help set up RN and home infusion 6. FU heme [...] Signs: 24 Hour Range BP: 184/76 (08/27 121) Temp: 36.4 C (97.5 F) (08/27 121) Pulse: 73 (08/27 121) Respirations: 18 PER MINUTE (08/27 1210) SpO2: 95 % (08/27 121) O2 Delivery: Nasal Cannula (08/27 1210) SpO2 Pulse: 75 (08/26 1526) BP: (152-194)/(65-94) [...] radiology images viewed. Karina August DO Pager [phone] Infectious Diseases Faculty * Glo Vidal MD - 08/27/2017 9:26 AM CDT Formatting [...] Had surg yest, marizol well. Pain well-controlled. UO--1675 yest Cr-3.2 this am c/w 3.1 yest [...] Low-High Color,UA YELLOW Turbidity,UA CLEAR CLEAR-CLEAR Specific Brewster-Urine 1.004 1.003 - 1.035 pH,UA 5.0 5.0 [...] Place today. -regular diet - ONI. IVF. warrant server appears to have peaked, nephrology following. Heme today for paraproteinuria. Langford. - N/V. diarrhea. added compazeine. C. diff neg. KUB no bowel obstruction. dispo: continue inpt. OR today [facility] * Sydnie Valerio RN - 08/27/2017 2:28 [...] ask heme to see tomorrow. * Karina August, - 08/26/2017 1:21 PM CDT Formatting of [...] 5. Will need SL picc line for usp IV antibiotic, Consult CM to help set [...] tablet 0.5 mg 0.5 mg Oral QHS [APR Hold] amLODIPine (NORVASC) tablet 10 mg [...] (COLACE) capsule 100 mg 100 mg Oral BID(10-27) [APR Hold] duloxetine DR (CYMBALTA) capsule 60 mg 60 mg Oral QHS [APR Hold] latanoprost (XALATAN) 0.005 % ophthalmic solution 1 drop 1 drop Both Eyes QHS [APR Hold] milk of magnesia (CONC) oral suspension 10 mL 10 mL Oral QDAY() [APR Hold] nebivolol (BYSTOLIC) tablet 10 mg 10 mg Oral BID [APR Hold] polyethylene glycol 3350 (MIRALAX) packet 17 g 1 packet Oral QDAY [APR Hold] rifAMPin (RIFADINE) capsule 300 mg 300 mg Oral BID [APR Hold] senna (SENOKOT) tablet 1 tablet 1 tablet Oral BID [APR Hold] timolol maleate (TIMOPTIC) 0.5 % ophthalmic drops 1 drop 1 drop Both Eyes QDAY Continuous Infusions: sodium chloride 0.9 % infusion PRN and Respiratory Meds:[Apr] acetaminophen Q4H PRN OR [Apr] acetaminophen Q4H PRN, [Apr] bisacodyl QDAY PRN, [Apr] diphenhydrAMINE Q6H PRN OR [Apr] diphenhydrAMINE Q6H PRN, [APR Hold] fentaNYL citrate PF Q1H PRN, [APR Hold] HYDROcodone/acetaminophen Q4H PRN, [APR Hold] ondansetron (ZOFRAN) IV Q6H PRN, [Apr] prochlorperazine [...] radiology images viewed. Karina August DO Pager [phone] Infectious Diseases Faculty * Deyanira Morales MD [...] Dept of Anesthesiology 08/27/17 * Natali Vargas, YASMANI - 08/26/2017 10:15 AM CDT Call from Nephrology. Stop 24 hour urine collect. Need urine specimen sent for UA, Protein/Cr, and Microalb/Cr which was supposed to be processed yesterday. Advised pt already off floor to pre/post for surgery today. Will pass along to TEST MAN. Oneil, TEST MAN called for report. Advised 24 hr urine [...] Ancef/rifampin. ID consult. will need picc. - NPO@[place]. - ONI. IVF. warrant server increased again today, but slowing. consult nephrology -A.fib? EKG. Possible tele. Will review EKG. - N/V. diarrhea. added compazeine. C. diff neg. KUB today. dispo: continue inpt. OR today [facility] * Romy Pineda, RN - 08/25/2017 5:31 PM CDT Formatting [...] time. Will continue to monitor. * Karina August, DO - 08/25/2017 4:17 PM CDT Formatting [...] 7. Will need SL picc line for intermediate manager IV antibiotic, Consult CM to help set [...] radiology images viewed. Karina August DO Pager [phone] Infectious Diseases Faculty * Giovana Reid - 08/25/2017 4:08 PM CDT Proposal Analyst attempted visit first time, patient with an RN, second time with doctor. Will try again in the morning. Please call if needed before then. The spiritual care team is available as needed, 02/09, through the campus switchboard ([phone]). For immediate response, please page [phone]. For a response within 24 hours, please submit an order in O2 for a bag machine tender consult or call the administrative voicemail at [phone]. * Tammy Spear, PT - 08/25/2017 3:50 PM CDT PHYSICAL THERAPY NOTE Attempted to see patient this date. Patient ambulating to/from bathroom with 4WW safely per RN. Increased N&V, thus patient politely declined participation in therapy this date. Educated on bed level exercises, patient stated understanding. Will follow-up at later date Therapist: Tammy Spear, PT Date: 08/25/2017 * Juliet Sims, [...] *Higher points indicate higher acuity. Therapist: Juliet Sims RT Date: 08/25/2017 Roberson AC=Airway clearance AM=Aerosolized medication BA=Derby aerosol DB&C=Deep breathe & cough FEV1=Forced expiratory volume in first second) IC=Inspiratory capacity LE=Lung expansion MDI=Metered dose inhaler Neb=Nebulizer O2=Oxygen Oxim=Oximetry PEFR=Peak expiratory flow rate PERSONAL SUPPORT WORKER=Rapid Response Team * Jamil Madrid - 08/25/2017 [...] TAA now w/post op infection s/p I&D 7/15 -PT OT -weight bearing: NWB RLE, splint -DVT ppx: asa, mobilize, scd -continue current regimen for pain control -acute blood loss anemia-hgb 10.4. monitor - Cltx swab: staph. Synovial: NGTD, OR cltx: staph. - Vanc/Zoxyn. ID consult. will need picc. - Regular diet. - ONI. IVF. warrant server increased again today. consult nephrology -A.fib? EKG. Possible tele. dispo: continue inpt. [facility] * Theodore Sanchez, PHARMD - 08/25/2017 7:52 [...] (H) 0.4 - 1.00 MG/DL Final 08/24/2017 0347 1.65 (H) 0.4 - 1.00 MG/DL Final 08/23/2017 0343 0.69 0.4 - 1.00 MG/DL Final Blood [...] monitor and adjust therapy as needed. Theodore Sanchez PHARMD 08/25/2017 * Jamil Madrid - 08/24/2017 3:59 [...] switching abx w/ID. dispo: continue inpt. [facility] * Irma Arguello, OT - 08/24/2017 3:35 PM CDT Formatting of this note may be different from the original. OCCUPATIONAL THERAPY ASSESSMENT/DISCHARGE NOTE Patient Name: Steff Azul Room/Bed: [place] [address] Admitting Diagnosis: Wound infection Past Medical History: Diagnosis Date Arthritis Back pain Fracture On supplemental oxygen therapy Osteoarthritis Osteoporosis Subjective Pertinent Dx per Physician: RUBEN; DM 07/18/17 Dx: I&D right ankle R LE [...] Shower Home Equipment: (4 wheeled walker, walker, director card) Prior Function Level Of [place]: Independent with ADLs and functional transfers;Needed assistance with homemaking Lives With: Alone Receives Help From: Filler Sifter Machine (cleaning person- who assists w/ laundry/dogs ) [...] Plans to rent knee scooter) Therapist: Irma Arguello OT Date: 08/24/2017 * Shavonne Lerma, PT [...] 19 Standardized (T-scale) Score: 42.48 Basic Mobility [facility] 0-100%: 36.99 [facility] G Code Modifier for Basic Mobility: JESSENIA [...] Cells Date/Time Value Ref Range Status 08/24/2017 034 9.1 4.5 - 11.0 K/UL Final 08/23/2017 034 5.6 4.5 - 11.0 K/UL Final 08/22/2017 1115 6.8 4.5 - 11.0 K/UL Final Creatinine Date/Time Value Ref Range Status 08/24/2017346 1.65 (H) 0.4 - 1.00 MG/DL Final 08/23/2017 034 0.69 0.4 - 1.00 MG/DL Final 08/22/2017 [...] Vancomycin Trough Date/Time Value Ref Range Status 08/24/2017346 34.1 (HH) 10.0 - 20.0 MCG/ML Final [...] bed accompanied by transport. * Toya Rutledge, OT - 08/23/2017 7:56 AM CDT OCCUPATIONAL THERAPY NOTE OT orders received and appreciated. Per chart, patient scheduled for OR today. OT will plan to follow up postoperative day one. Therapist: Toya Rutledge OTR/Lisa [id number] Date: 08/23/2017 * Jamil Madrid - 08/23/2017 [...] dispo: OR today. consent in chart. [facility] * Shavonne Lerma, PT - 08/23/2017 7:11 AM CDT PHYSICAL THERAPY NOTE Physical therapy orders received, chart reviewed. Per EMR, patient to OR this date with orthopedics. Will follow up post-op day one to evaluate and treat as indicated. Therapist: Shavonne Lerma, PT Date: 08/23/2017 * Susie Trivedi [facility] - 08/22/2017 4:52 PM CDT Formatting of this note may be different from the original. Pharmacy Vancomycin Note Subjective: Steff Auzl is a 72 y.o. female being treated [...] and adjust therapy as needed. Susie Trivedi, [facility] 08/22/2017 * Toya Garza, RT - 08/22/2017 4:36 PM CDT Formatting of this note may be different from the original. RESPIRATORY THERAPY ADULT PROTOCOL EVALUATION RESPIRATORY PROTOCOL PLAN Medications Note: If indicated by protocol, medication orders will be placed by therapist. Procedures Oxygen/Humidity: O2 to keep SpO2 > 92% Monitoring: Pulse oximetry BID & PRN Comment: 2lpm SC Q PATIENT EVALUATION RESULTS Chart Review * Pulmonary [...] Date: 08/22/2017 [place] AC=Airway clearance AM=Aerosolized medication BA=Derby aerosol DB&C=Deep breathe & cough FEV1=Forced expiratory volume in first second) IC=Inspiratory capacity LE=Lung expansion MDI=Metered dose inhaler Neb=Nebulizer O2=Oxygen Oxim=Oximetry PEFR=Peak expiratory flow rate PERSONAL SUPPORT WORKER=Rapid Response Team in this encounter H&P Notes * Jamil Madrid - 08/22/2017 1:59 PM CDT Formatting of this note may be different from the original. Orthopedic Consult Note Admission Date: 08/22/2017 Chief [...] vanc/zosyn. Consult ID. IVF. - NPO at [place]. OK for diet now. Discuss w/staff surgeons [...] Right 07/18/2017 ARTHROPLASTY REPLACEMENT TOTAL ANKLE (PROPHECY #[id number]) performed by Joao Clemons MD at Main [...] Last Filed in 24 hours BP: 143/81 (08/220) Temp: 36.8 C (98.2 F) (08/22 1040) [...] nerve or vessel damage were discussed. Indications: Intermediate IV therapy Procedure: Under sterile conditions the [...] in this encounter Consult Notes * Rafa Jama DO - 08/28/2017 8:30 AM CDT Associated Order(s): [...] rifampin 300 mg bid HTN -BPs: 152-202/74-99 -lpta amlodipine 10mg daily, clonidine 0.1mg bid, lisinopril [...] unless otherwise noted in blue italics. Carlos Wiley, DO Date: 08/28/2017 Internal Medicine, Hospitalist [phone] History of Present Illness: Setff Azul is a 72 y.o. female with [...] Right 07/18/2017 ARTHROPLASTY REPLACEMENT TOTAL ANKLE (PROPHECY #[id number]) performed by Joao Clemons MD at Main [...] kidneys and bladder. YANIRA WEISS MD Pager: [phone] * Tyesha Fitzgerald, - 08/27/2017 11:12 AM CDT Associated Order(s): CONSULT HEMATOLOGY PHYSICIAN Formatting of this note may be different from the original. General Consult Note Admission Date: 08/22/2017 LOS: 5 days Reason for Consult: oRbe on SPEP. Pt w/infected ankle prosthesis. Now [...] Dr. Abarca. Tyesha Fitzgerald, DO PGY-2 Pager [phone] History of Present Illness: Steff Azul is [...] Right 07/18/2017 ARTHROPLASTY REPLACEMENT TOTAL ANKLE (PROPHECY #[id number]) performed by Joao Clemons MD at Main [...] MINUTE (08/27 1044) SpO2: 92 % (08/27 104) O2 Delivery: None (Room Air) (08/27 104) [...] Range Color,UA YELLOW Turbidity,UA CLEAR CLEAR-CLEAR Specific Brewster-Urine 1.005 1.003 - 1.035 pH,UA 5.0 5.0 [...] No pertinent radiology. 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 [...] mo. Is followed by outside rheum in [place]. Past Medical History: Diagnosis Date Arthritis Back pain Fracture On supplemental oxygen therapy Osteoarthritis Osteoporosis Past Surgical History: Procedure Laterality Date TOTAL ANKLE ARTHROPLASTY Right 07/18/2017 ARTHROPLASTY REPLACEMENT TOTAL ANKLE ([facility] #[id number]) performed by Joao Clemons MD at Main [...] Signs: 24 hour Range BP: 138/76 (08/25 0410) Temp: 36.4 C (97.6 F) (08/25 041) Pulse: 64 (08/25 409) Respirations: 16 PER MINUTE (08/25 409) SpO2: 97 % (08/25 409) O2 Delivery: None (Room Air) (08/25 09) BP: (119-167)/(71-85) Temp: [36.3 C (97.4 F)-36.9 [...] having one ECHO done recently by her nutter up at [place], [place] (Dr. Rafael Tadeo at [facility]) which apparently showed normal EF. Chest [...] is NSR. Regularly regular pulse on exam. [id number] of 3. No hx of bleeding disorders. # HTN # Hx of mitral valve prolapse # Osteoarthritis Recommendations - Please obtain EKG - Please place on tele monitor - Please obtain perioperative Afib telemetry strip. - Please obtain records from her nutter up - If any evidence of Afib on Tele, EKG, please obtain ECHO and re-consult cardiology - If there is evidence of Afib, we will review the ECHO performed and we will also start her on anticoagulation given her [id number] of 3 (HTN, Age >65 and Female sex). - We will sign off - Please call us back if any questions Thank you for allowing us to participate in the care of this patient. Discussed with Dr. Salas who agrees with plan above. LEXIE Garza CV Fellow Pager: [phone] Home Medications Prescriptions Prior to Admission Medication [...] Right 07/18/2017 ARTHROPLASTY REPLACEMENT TOTAL ANKLE (PROPHECY #[id number]) performed by Joao Clemons MD at Main [...] Vital Signs: 24 Hour Range BP: 149/82 (08/23 1538) Temp: 36.9 C (98.4 F) (08/23 1538) Pulse: 66 (08/23 1538) Respirations: 18 PER MINUTE (08/23 1538) SpO2: 98 % (08/23 1538) O2 Delivery: None (Room Air) (08/23 1538) SpO2 Pulse: 67 (08/23 1430) BP: (112-159)/(62-93) Temp: [36.6 C (97.9 F)-37.3 [...] (48 hour Holter) when she sees her nutter up in [place]. If she does indeed have paroxysmal a.fib after discharge (not related to post-op care) then she should initiate anticoagulation for stroke prevention. Provided counseling to patient. Call with questions we will sign off. Thank you for allowing us to participate in the shared care of your patient. Mati Salas MD Advanced Heart Failure & Transplant Visitor Services Associate Museum Guideacademic support director Director, [facility] Primary Transplant Physician Filing Or Registry Clerk, Heart Transplantation Center for Transplantation [facility] [email or web address] * Karina August DO - 08/23/2017 7:31 AM CDT Associated [...] 5. 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 Karina August DO Pager [phone] Infectious Diseases Faculty in this encounter Miscellaneous Notes * Case Mgmt DC Plan - Ellie Rahman - 09/02/2017 1:03 PM CDT Formatting of this note may be different from the original. Case Management Progress Note NAME:Steff Azul : AGE: 72 y.o. ADMISSION DATE: 08/22/2017 DAYS ADMITTED: LOS: 11 days Todays Date: 09/02/2017 Plan Anticipate pt discharging to [facility] at 1p via facility transport. Bret reviewed EMR and met with the team. Pt is medically stable to discharge to facility. Interventions ? Support Support: Pt/Family Updates re:POC or DC Plan Sw updated pt on discharge planning. ? Info or Referral ? Discharge Planning Discharge Planning: Intermediate Facility Sw received messages from [facility]- neither facility can accept pt due to cost of IV abx. Sw spoke to admissions at [facility]- pt is accepted and can be admitted today. Doctor will need to sign letter of predictability- Dr. Madrid signed- Bret faxed to SNF. Transport scheduled for 1p. Bret updated team- RN report number- [phone]. Bret tasked FILM SORTER to fax discharge orders to [phone], and to print transfer packet and place in [facility]. ? Medication Needs ? Financial ? Legal [...] Selected Specialties Address Phone Number Fax Number [facility] Facility [address] [place] [address] [phone] Home Care - Selection Complete Service Request Status Selected Specialties Address Phone Number Fax Number [facility] Selected Home Health Services [address] [facility] [address] Dialysis/Infusion - Selection Complete Service Request Status Selected Specialties Address Phone Number Fax Number [facility] Selected Home Infusion and Injection Services [address] [facility] [address] [phone] Ellie Rahman LMSW *[phone] * Care Plan [...] during hospital stay * Case Mgmt DC Plan - Josefina Crawford - 09/02/2017 11:59 AM CDT FILM SORTER Note Printed and placed transfer packet in pt's wallaroo, per request from [facility]. Also faxed discharge orders to the facility as requested. Josefina Crawford [employer] For additional assistance, please contact [facility]*[phone] * Case Mgmt DC Plan - Ellie Rahman - 09/01/2017 12:57 PM CDT Formatting of this note may be different from the original. Case Management Progress Note NAME:Steff Azul : AGE: 72 y.o. ADMISSION DATE: 08/22/2017 DAYS ADMITTED: LOS: 10 days Todays Date: 09/01/2017 Plan Anticipate pt discharging to SNF, pending acceptance, when medically stable. Bret reviewed EMR and met with the team- Pt is going for echo, IM wants pt to stay today. Interventions ? Support Support: Pt/Family Updates re:POC or DC Plan Bret met with pt at bedside and discussed discharge planning- Bret went over Medicare.gov list and [facility] list. Pt is agreeable to going to facility in [facility] and asked that Sw send referrals to [facility], [facility], and [facility] ? Info or Referral ? Discharge Planning Discharge Planning: Intermediate Facility Sw tasked [facility] to send updates to [facility]. [facility]- client administrator stated that they would not be able to meet pt's medical needs and cannot afford pt due to cost of daptomycin. Sw sent referrals to [facility] and [facility]. ? Medication Needs ? Financial ? [...] Specialties Address Phone Number Fax Number [facility] Selected Home Health Services [address] [facility] [address] [phone] Dialysis/Infusion - Selection Complete Service Request Status Selected Specialties Address Phone Number Fax Number [facility] Selected Home Infusion and Injection Services [address] [facility] [address] [phone] Ellie Rahman LMSW *[phone] * Case Mgmt DC Amol - Elsie Hoyos - 09/01/2017 10:27 AM CDT [facility] note: [facility] Wendy [phone] requesting referral updates to the following facility. [facility] Updates sent, follow up pending. Elsie Hoyos [employer] * Patient Education - Ty Noriega RN [...] the original. Case Management Progress Note NAME:Steff Ivis Azul : AGE: 72 y.o. ADMISSION DATE: 08/22/2017 DAYS ADMITTED: LOS: 7 days Todays Date: 08/29/2017 Plan Anticipate pt discharging to [facility], when medically stable. Bret reviewed EMR and met with the team. Interventions ? Support Support: Pt/Family Updates re:POC or DC Plan Sw spoke with pt- she would like a referral sent to [facility]. ? Info or Referral ? Discharge Planning Discharge Planning: Intermediate Facility Sw tasked FILM SORTER to send referral to [facility]. Sw spoke with admissions- they will be able [...] Specialties Address Phone Number Fax Number [facility] Selected Home Health Services [address] [facility] [address] [phone] Dialysis/Infusion - Selection Complete Service Request Status Selected Specialties Address Phone Number Fax Number [facility] Selected Home Infusion and Injection Services [address] [facility] [address] [phone] Ellie Rahman LMSW *[phone] * Case Mgmt DC Amol - Josefina Crawford - 08/29/2017 1:14 PM CDT FILM SORTER Note Sent an initial placement request via AllScripts to the below SNF facility, per request from [facility] [phone] [place] [phone] Updated SWCM. Josefina Crawford [employer] For further assistance, please contact [facility]*[phone] * Case Mgmt DC Plan - Ellie Rahman - 08/28/2017 2:03 PM CDT Formatting of this note may be different from the original. Case Management Progress Note NAME:Steff Azul : AGE: 72 y.o. ADMISSION DATE: 08/22/2017 DAYS ADMITTED: LOS: 6 days Todays Date: 08/28/2017 Plan Anticipate pt discharging to SNF or IPR pending acceptance, when medically stable. Interventions ? Support Sw met with pt at bedside and discussed discharge planning. Sw provided pt with Medicare.gov list of SNFs near her home in [place]. Sw will follow up with pt regarding referrals tomorrow. ? Info or Referral ? Discharge Planning Discharge Planning: Intermediate Facility ? Medication Needs ? Financial ? [...] Specialties Address Phone Number Fax Number [facility] Selected Home Health Services [address] [facility] [address] [phone] Dialysis/Infusion - Selection Complete Service Request Status Selected Specialties Address Phone Number Fax Number [facility] Selected Home Infusion and Injection Services [address] [facility] [address] [phone] Ellie Rahman LMSW *[phone] * Care Plan [...] Date: 08/27/2017 Plan [facility] on DC Interventions ? Support ? Info or Referral ? Discharge Planning Discharge Planning: Home Health, Home Yupxgyjj-Hqusefl-ABN-NCM spoke with Ortho team this afternoon, plan for tentative DC on Friday. NCM updated [facility]. Per [facility] is $55.94 per fill plus $15 [...] Specialties Address Phone Number Fax Number [facility] Selected Home Health Services [address] [facility] [address] [phone] Dialysis/Infusion - Selection Complete Service Request Status Selected Specialties Address Phone Number Fax Number [facility] Selected Home Infusion and Injection Services [address] [facility] [address] [phone] JAS Mcmahon, contract modeler Administrative Coordinator [phone] * Anesthesia Post Op Day 1 - [...] 0509) Temp: 36.8 C (98.2 F) (08/27 050) Pulse: 77 (08/27 050) Respirations: 17 PER MINUTE (08/27 050) SpO2: 98 % (08/27 050) O2 Delivery: None (Room Air) (08/27 050) [...] 72 y.o. female : 1945 MRN# : [id number] DATE OF OPERATION: 08/26/2017 Date: 08/26/2017 Preoperative [...] GRAM STAIN, CULTURE-FUNGAL,OTHER Joao Clemons MD 08/26/2017 1209 Complications: None Implants: poly exchange. Size 8, 2+ Drains: None Disposition: PACU - stable Jamil Madrid Pager [phone] * Operative Report (Direct Entry) - Jamil Madrid - 08/26/2017 11:40 AM CDT Formatting of this note may be different from the original. OPERATIVE REPORT Name: Steff Azul is a 72 y.o. female : 1945 MRN# : [id number] DATE OF OPERATION: 08/26/2017 Surgeon(s) and Role: [...] GRAM STAIN, CULTURE-FUNGAL,OTHER Joao Clemons MD 08/26/2017 1204 B : LEFT ANKLE TISSUE Tissue Ankle CULTURE-ANAEROBIC, CULTURE-WOUND/TISSUE/FLUID (AEROBIC ONLY)W/SENSITIVITY, CULTURE-TB (AFB), GRAM STAIN, CULTURE-FUNGAL,OTHER Joao Clemons MD 08/26/2017 1205 [facility] Pager [phone] * Patient Education - Sydnie Valerio RN - 08/26/2017 1:55 AM CDT This RN initiated education binder and left at patient's bedside for review with day RN. * Patient Education - Romy Pineda RN - 08/25/2017 7:40 PM CDT Steff Azul accepted education and was receptive. she verbalized [...] had HH in the past with [facility]. She doesn't have a preference for who provides Home IV antibiotics. -Referrals sent to [facility] and [facility]. Signed orders and clinicals will need to be faxed at d/c. Interventions ? Support ? Info or Referral ? Discharge Planning -RNCM spoke with and faxed referrals to [facility] [phone] Fax: and [facility] [phone] . ? Medication Needs ? Financial ? [...] selected for the patient. Sotero Burris RN, [facility] Integrated Administrative Coordinator *[phone] * Anesthesia Post Op Day 1 - Leonard Harvey, CARLA - 08/25/2017 9:13 AM CDT Formatting of [...] MD - 08/24/2017 6:01 PM CDT THE [address] [id number] PATIENT NAME: STEFF AZUL MR#/PT#: [id number] Page 2 OPERATIVE REPORT DATE OF OPERATION: [...] SPECIMENS REMOVED: We sent tissue for culture. MD REY Xie / MOON /[id number] p cc: - Cristobal Neely MD * Critical Results - Adelina Justice RN - 08/24/2017 6:16 AM CDT Critical result or procedure called (document test and value, and read back): Vanc Peak/Trough 34.1 Time MD/BALLET PROFESSOR Notified: 0620 MD/BALLET PROFESSOR Name: Dr. Ashlee PISANO/BALLET PROFESSOR Response/Orders Given: stop Vanc Infusion, Notify Pharmacy. * Procedures (Immed Post or Bedside) - Jamil Madrid - 08/23/2017 1:51 PM CDT Formatting of this note may be different from the original. Brief Operative Note Name: Steff Azul is a 72 y.o. female : 1945 MRN# : [id number] DATE OF OPERATION: 08/23/2017 Date: 08/23/2017 Preoperative [...] Implants: none Drains: None Disposition: PACU - stable Jamil Mercy Pager [phone] * ED Notes - Chloé Weaver RN - 08/22/2017 3:08 PM CDT Report given to YASMANI Carvahlo. Pt going to 1, room dirty at this time. * ED Notes - Mati Rojo RN - 08/22/2017 2:40 PM CDT 1440: [id number] ready. Please call Chloé for report @ [phone] * ED Notes - Chloé Weaver RN [...] of the RLE. History provided by: Patient employment manager used: No Review of Systems: Review of [...] Right 07/18/2017 ARTHROPLASTY REPLACEMENT TOTAL ANKLE ([facility] #[id number]) performed by Joao Clemons MD at Main [...] 74 14 PER MINUTE 74 97 % BH 08/22/17 1100 -- 125/69 74 -- 79 [...] (TYLENOL) tablet 650 mg 650 mg at 07/13/18 1737 Or [MAR Hold] acetaminophen (TYLENOL) rectal suppository 650 mg [APR Hold] ALPRAZolam (XANAX) tablet 0.5 mg 0.5 mg at 08/22/172141 [APR Hold] amLODIPine (NORVASC) tablet 10 mg 10 mg at 08/23/17928 [MAR Hold] aspirin tablet 325 mg 325 mg at 08/23/17928 [MAR Hold] atorvastatin (LIPITOR) tablet 20 mg 20 [...] solution 1 drop 1 drop at 08/22/172141 [MAR Hold] lisinopril (PRINIVIL; ZESTRIL) tablet 40 mg 40 mg at 08/23/17928 [APR Hold] milk of magnesia (CONC) oral suspension 10 mL [APR Hold] nebivolol (BYSTOLIC) tablet 10 mg 10 mg at 08/23/17928 [MAR Hold] ondansetron (ZOFRAN) injection 4 mg piperacillin/tazobactam (ZOSYN) 3.375 g/50 mL iso-osmotic IVPB 3.375 g at 08/23/17 1038 [MAR Hold] potassium chloride SR (K-DUR) tablet 20 mEq 20 mEq at 08/23/17 0929 sodium chloride 0.9 % infusion [MAR Hold] [...] MD Attestation / Supervision Note concerning Steff Azul: I personally performed the roberson portions of [...] at this time. 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 * ED Triage Notes [...] CDT procedure are in the results section. in this encounter Results * ECG-SCAN (09/10/2017 [...] G/DL [facility] Performing Organization Address [facility] Phone Number [facility] [address] [place] [address] * CREATINE KINASE-CPK (09/02/2017 3:30 AM) Creatine Kinase 26 21 - 215 U/L [facility] Performing Organization Address City/[facility] Cent[facility]ode Phone Number [facility] [address] [place] [address] * BASIC METABOLIC PANEL (09/02/2017 3:30 AM) [...] for questions. Specimen Blood Performing Organization Address City/[facility]/Zipcode Phone Number MAIN LAB [address] [place] [address] * CBC AND DIFF (09/02/2017 3:30 AM) [...] MAIN LAB Specimen Blood Performing Organization Address City/[facility]/Zipcode Phone Number [facility] [address] [place] [address] * C DIFFICILE BY PCR (09/01/2017 2:50 PM) Battery Name C DIFFICILE PCR MAIN LAB Specimen Description FECES MAIN LAB Special Requests NONE MAIN LAB C. Difficile Toxin B PCR NEGATIVE-wait 7 days to repeat [facility] test Report Status FINAL MAIN LAB 09/01/2017 Specimen Feces Performing Organization Address City/[facility]/Zipcode Phone Number [facility] [address] [place] [address] * BNP (B-TYPE NATRIURETIC PEPTI) (09/01/2017 12:35 PM) B Type Natriuretic 204.0 (H) 0 - 100 PG/ML [facility] Peptide Specimen Blood Performing Organization Address [facility] Centercowy Phone Number [facility] [address] [place] [address] * BASIC METABOLIC PANEL (09/01/2017 3:50 AM) Sodium 135 (L) 137 - 147 MMOL/L MAIN LAB Potassium 4.0 3.5 - 5.1 MMOL/L MAIN LAB Chloride 99 98 - 110 MMOL/L [facility] CO2 27 21 - 30 MMOL/L MAIN LAB Anion Gap 9 3 - 12 MAIN LAB Glucose 117 (H) 70 - 100 MG/DL [facility] Blood Urea Nitrogen 35 (H) 7 - 25 MG/DL [facility] Creatinine 2.14 (H) 0.4 - 1.00 MG/DL [facility] Calcium 9.4 8.5 - 10.6 MG/DL MAIN LAB eGFR Non 23 (L) >60 mL/min MAIN LAB Comment: The eGFR is not validated for use in drug dosing adjustments.Continue to use estimated creatinine clearance per dosing reference text.Please contact the Clinical Pharmacist for questions. eGFR 28 (L) >60 mL/min [facility] Comment: The eGFR is not validated for use in drug dosing adjustments.Continue to use estimated creatinine clearance per dosing reference text.Please contact the Clinical Pharmacist for questions. Specimen Blood Performing Organization Address City/[facility]/Zipcode Phone Number [facility] [address] [place] [phone] * CBC AND DIFF (09/01/2017 3:50 AM) White Blood Cells 12.3 (H) 4.5 - 11.0 K/UL [facility] RBC 3.52 (L) 4.0 - 5.0 [...] Blood Performing Organization Address City/State/Zipcode Phone Number [facility] [address] [place] [address] * BASIC METABOLIC PANEL (08/31/2017 3:30 AM) [...] questions. Performing Organization Address City/State/Zipcode Phone Number MAIN LAB [address] [place] [address] * CBC AND DIFF (08/31/2017 3:30 AM) [...] MAIN LAB Specimen Blood Performing Organization Address City/[facility]/Zipcode Phone Number [facility] [address] [place] [address] * CHEST SINGLE VIEW (08/30/2017 10:27 AM) [...] on 08/30/2017 11:51 AM. Performing Organization Address City/State/Zipcode Phone Number [facility] RAD RESULTS * CBC [...] MAIN LAB Specimen Blood Performing Organization Address City/[facility]/Zipcode Phone Number MAIN LAB [address] [place] [phone] * BASIC METABOLIC PANEL (08/30/2017 3:50 AM) [...] for questions. Specimen Blood Performing Organization Address City/[facility]/Zipcode Phone Number MAIN LAB [address] [place] [phone] * CBC AND DIFF (08/29/2017 4:30 AM) [...] MAIN LAB Specimen Blood Performing Organization Address City/[facility]/Zipcode Phone Number [facility] [address] [place] [address] * BASIC METABOLIC PANEL (08/29/2017 4:30 AM) [...] for questions. Specimen Blood Performing Organization Address City/[facility]/Zipcode Phone Number [facility] [address] [place] [address] * METASTATIC SKELETAL SURVEY (08/28/2017 9:48 AM) [...] on 08/28/2017 10:06 AM. Performing Organization Address [facility] Phone Number [facility] RESULTS * ABDOMEN [...] on 08/28/2017 10:05 AM. Performing Organization Address [facility] Phone Number KU RAD RESULTS * CHEST [...] on 08/28/2017 10:11 AM. Performing Organization Address City/[facility] Phone Number KU RAD RESULTS * MANUAL [...] NORMAL [facility] MAIN LAB Performing Organization Address [facility]/Zipcode Phone Number [facility]IN [facility] [address] [place] [address] * CREATINE KINASE-CPK (08/28/2017 3:04 AM) Creatine Kinase 34 21 - 215 U/L [facility] Performing Organization Address City/[facility] Phone Number [facility] [address] [place] [address] * CBC (08/28/2017 3:04 AM) White Blood [...] LAB MPV 7.5 7 - 11 FL [facility]IN [facility] Specimen Blood Performing Organization Address [facility] Phone Number [facility] [address] [place] [address] * BASIC METABOLIC PANEL (08/28/2017 3:04 AM) [...] for questions. Specimen Blood Performing Organization Address City/[facility]/Zipcode Phone Number [facility] [address] [place] [address] * CULTURE-URINE W/SENSITIVITY (08/27/2017 3:59 PM) Battery Name URINE CULTURE [facility]IN [facility] Specimen Description URINE [facility] Special Requests NONE [facility] Culture NO GROWTH [facility] Report Status FINAL [facility] 08/28/2017 Specimen Urine Performing Organization Address [facility]/Zipcode Phone Number [facility]IN [facility] [address] [place] [address] * UA REFLEX CULTURE LABEL (08/27/2017 3:59 PM) UA Reflex Culture LAB LABEL [facility] MAIN [facility] Specimen Urine Performing Organization Address [facility] Phone Number [facility] [address] [place] [address] * URINALYSIS MICROSCOPIC REFLEX TO CULTURE (08/27/2017 3:59 PM) WBCs,UA 2-10 0 - 2 /HPF KU [...] MAIN LAB Specimen Urine Performing Organization Address [facility] Phone Number [facility] [address] [place] [address] * URINALYSIS DIPSTICK REFLEX TO CULTURE (08/27/2017 3:59 PM) Color,UA YELLOW [facility] MAIN [facility] Turbidity,UA CLEAR CLEAR-CLEAR [facility] MAIN [facility] Specific [place]-Urine 1.004 1.003 - 1.035 KU MAIN LAB [...] MAIN LAB Specimen Urine Performing Organization Address City/[facility] Phone Number [facility] [address] [place] [address] * CHEST SINGLE VIEW (08/27/2017 2:47 PM) [...] on 08/27/2017 2:58 PM. Performing Organization Address [facility] Phone Number RAD RESULTS * IMMUNOGLOBULINS-IGA,IGG,IGM (08/27/2017 12:07 PM) IgG 913 762 - 1,488 MG/DL [facility] MAIN [facility] IgA 187 70 - 390 MG/DL [facility] MAIN [facility] IgM 131 38 - 328 MG/DL [facility]IN [facility] Specimen Blood Performing Organization Address [facility] Phone Number MAIN LAB [address] [place] [address] * BASIC METABOLIC PANEL (08/27/2017 3:43 AM) [...] for questions. Specimen Blood Performing Organization Address [facility] Phone Number MAIN LAB [address] [place] [address] * CBC (08/27/2017 3:43 AM) White Blood Cells 8.4 4.5 - 11.0 K/UL [facility] MAIN LAB RBC 3.49 (L) 4.0 - 5.0 M/UL [facility] MAIN [facility] Hemoglobin 10.6 (L) 12.0 - 15.0 GM/DL [facility] MAIN LAB Hematocrit 31.7 (L) 36 - 45 % [facility] MAIN LAB MCV 90.8 80 - 100 FL [facility] MAIN LAB MCH 30.2 26 - 34 PG [facility] MAIN LAB MCHC 33.3 32.0 - 36.0 G/DL MAIN LAB RDW 12.7 11 - 15 % MAIN LAB Platelet Count 288 150 - 400 K/UL MAIN LAB MPV 7.6 7 - 11 FL MAIN LAB Specimen Blood Performing Organization Address [facility] Phone Number MAIN LAB [address] [place] [address] * URINE COLLECTION (08/26/2017 3:52 PM) Collection Period, Urine 24.0 MAIN LAB Volume, Urine 1,530 MLS MAIN LAB Performing Organization Address [facility] Phone Number MAIN LAB [address] [place] [address] * IMMUNOFIXATION URINE 24 HOUR (08/26/2017 3:52 PM) Immuno Fix-URINE FREE KAPPA L[place] MAIN LAB Pathologist Signature INTERPRETED BY SELENE DIANE M.D. [facility] By the PATH SIGNATURE ABOVE, I attest that I have personally formulated the final interpretation expressed in this report and that the above diagnosis is based upon my examination of the slides and/or other material indicated in this report. Specimen Urine - Urine Performing Organization Address [facility] Phone Number [facility] [address] [place] [address] * UA REFLEX CULTURE LABEL (08/26/2017 3:51 PM) UA Reflex Culture LAB LABEL MAIN LAB Specimen Urine Performing Organization Address [facility] Phone Number [facility] [address] [place] [address] * MICROALB/CR RATIO-URINE RANDOM (08/26/2017 3:51 PM) Microalbumin, Random 77.2 (H) <19 MCG/ML MAIN LAB Creatinine, Random 53 MG/DL MAIN LAB Microalbumin/CR ratio 145.66 (H)Comment: NOTE NEW <30 ug/mg [facility] MAIN LAB Urine REFERENCE RANGES Specimen Urine - Urine Performing Organization Address [facility] Phone Number MAIN LAB [address] [place] [address] * PROTEIN/CR RATIO,UR RAN (08/26/2017 3:51 PM) Protein, Random 21 MG/DL MAIN LAB Creatinine, Random 53 MG/DL [facility] MAIN LAB Protein/CR ratio 0.4 [facility] MAIN LAB Specimen Urine - Urine Performing Organization Address [facility] Phone Number [facility] [address] [place] [address] * URINALYSIS MICROSCOPIC REFLEX TO CULTURE (08/26/2017 [...] MAIN LAB Specimen Urine Performing Organization Address [facility] Phone Number [facility] [address] [place] [address] * URINALYSIS DIPSTICK REFLEX TO CULTURE (08/26/2017 3:51 PM) Color,UA YELLOW [facility] MAIN LAB Turbidity,UA CLEAR CLEAR-CLEAR [facility] MAIN [facility] Specific [place]-Urine 1.005 1.003 - 1.035 K[facility] MAIN LAB [...] MAIN LAB Specimen Urine Performing Organization Address [facility] Phone Number [facility] [address] [place] [address] * GRAM STAIN (08/26/2017 12:09 PM) Battery Name GRAM STAIN [facility] MAIN [facility] Specimen Description TISSUE MAIN LAB LEFT ANKLE Special Requests NONE [facility] MAIN LAB Gram Stain RARE MAIN LAB NEUTROPHILS NO ORGANISMS SEEN Report Status FINAL MAIN LAB 08/26/2017 Specimen Tissue - Tissue Performing Organization Address [facility]/Zipcode Phone Number [facility] [address] [place] [address] * CULTURE-WOUND/TISSUE/FLUID(AEROBIC ONLY)W/SENSITIVITY (08/26/2017 12:09 PM) Battery Name ROUTINE CULTURE [facility] MAIN [facility] Specimen Description TISSUE [facility] MAIN LAB LEFT ANKLE Special Requests NONE [facility] MAIN LAB Direct Gram Stain RARE [facility] MAIN LAB NEUTROPHILS NO ORGANISMS SEEN Culture 1 [place] MAIN LAB STAPHYLOCOCCUS AUREUS See previous susceptibility Report Status FINAL [facility] MAIN LAB 08/29/2017 Specimen Tissue - Tissue Performing Organization Address City/[facility] Phone Number [facility] [address] [place] [address] * CULTURE-ANAEROBIC (08/26/2017 12:09 PM) Battery Name ANAEROBE CULTURE [facility] MAIN LAB Specimen Description TISSUE [facility] MAIN LAB LEFT ANKLE Special Requests NONE [facility]U MAIN LAB Culture NO ANAEROBES ISOLATED [facility] MAIN LAB Report Status FINAL [facility] MAIN LAB 09/01/2017 Specimen Tissue - Tissue Performing Organization Address [facility] Phone Number MAIN LAB [address] [place] [address] * CULTURE-WOUND/TISSUE/FLUID(AEROBIC ONLY)W/SENSITIVITY (08/26/2017 12:07 PM) Battery Name ROUTINE CULTURE [facility] MAIN LAB Specimen Description HARDWARE SPECIMEN KU MAIN LAB LEFT ANKLE POLY Special Requests NONE [facility] MAIN LAB Culture 1 [place] MAIN LAB STAPHYLOCOCCUS AUREUS (A) Report Status FINAL MAIN LAB 08/29/2017 Organism ID 1 [place] MAIN LAB STAPHYLOCOCCUS AUREUS Specimen Hardware - [...] (MCG/ML) aureus INTERPRETATION INTERPRETATION Performing Organization Address City/[facility] Phone Number MAIN LAB [address] [place] [address] * CULTURE-ANAEROBIC (08/26/2017 12:07 PM) Battery Name ANAEROBE CULTURE [facility] MAIN [facility] Specimen Description HARDWARE SPECIMEN KU MAIN LAB LEFT ANKLE POLY Special Requests NONE MAIN LAB Culture NO ANAEROBES ISOLATED MAIN LAB Report Status FINAL [facility] 09/01/2017 Specimen Hardware - Hardware Specimen Performing Organization Address City/[facility]/Zipcode Phone Number [facility] [address] [place] [address] * ABDOMEN AP ONLY (08/26/2017 9:06 AM) [...] on 08/26/2017 9:46 AM. Performing Organization Address City/[facility]/Zipcode Phone Number [employer] RAD RESULTS * IMMUNOFIXATION, SERUM (IFES) (08/26/2017 4:00 AM) Immuno Fix-Serum IGG KAPPA PARAPROTEIN [facility] Pathologist Signature INTERPRETED BY SELENE DIANE M.D. [facility] By the PATH SIGNATURE ABOVE, I attest that I have personally formulated the final interpretation expressed in this report and that the above diagnosis is based upon my examination of the slides and/or other material indicated in this report. Performing Organization Address City/[facility]/Zipcode Phone Number [facility] MAIN [facility] [address] [place] [address] * KAPPA/LAMBDA FREE LIGHT CHAINS (08/26/2017 4:00 AM) [place], FLC 7.04 (H) 0.33 - 1.94 MG/DL MAIN LAB Comment: Freelite results should always be interpreted in conjunction with other laboratory tests and clinical evidence.The possibility of Antigen Excess exists and can cause Immunoassays to under estimate very high concentrations of antigen. Any discordant results should be discussed with Dr. Mora. [place], FLC 2.44 0.57 - 2.63 MG/DL [facility] [place]/Lambda FLC 2.89 (H) 0.26 - 1.65 MAIN LAB Specimen Blood Performing Organization Address [facility] Phone Number [facility] [address] [place] [address] * TOTAL PROTEIN SEP (08/26/2017 4:00 AM) Total Protein 5.3 (L) 6.0 - 8.0 g/dL MAIN LAB Specimen Blood Performing Organization Address [facility] Phone Number [facility] [address] [place] [address] * ELECTROPHORESIS-SERUM PROTEIN (08/26/2017 4:00 AM) Total Protein-SEP 5.3 (L) 6.0 - 8.0 G/DL [facility] Albumin % 47.1 (L) 48 - 68 % K[facility] MAIN LAB Alpha 1 % 8.2 (H) 2 - 6 % [facility] MAIN LAB Alpha 2 % 16.8 (H) 5 - 15 % [facility] MAIN LAB Beta %,Serum 12.6 9 - 17 % K[facility] MAIN LAB Gamma % 15.3 9 - 21 % [facility] MAIN LAB Paraprotein 0.17 G/DL MAIN LAB Interpretation - SEP SPIKE, PROBABLY MONOCLONAL, IN MAIN LAB BETA/GAMMA REGION(S) Pathologist Signature INTERPRETED BY SELENE DIANE M.D. [facility] By the PATH SIGNATURE ABOVE, I attest that I have personally formulated the final interpretation expressed in this report and that the above diagnosis is based upon my examination of the slides and/or other material indicated in this report. Specimen Blood Performing Organization Address [facility] Phone Number [facility] [address] [place] [address] * BASIC METABOLIC PANEL (08/26/2017 4:00 AM) Sodium 136 (L) 137 - 147 MMOL/L MAIN LAB Potassium 4.3 3.5 - 5.1 MMOL/L MAIN LAB Chloride 104 98 - 110 MMOL/L [facility] MAIN LAB CO2 23 21 - 30 MMOL/L [facility] MAIN LAB Anion Gap 9 3 - 12 [facility] MAIN LAB Glucose 81 70 - 100 MG/DL [facility] MAIN LAB Blood Urea Nitrogen 24 7 - 25 MG/DL MAIN LAB Creatinine 3.14 (H) 0.4 - 1.00 MG/DL MAIN LAB Calcium 8.7 8.5 - 10.6 MG/DL MAIN LAB eGFR Non 15 (L) >60 mL/min [facility] MAIN LAB Comment: The eGFR is not validated for use in drug dosing adjustments.Continue to use estimated creatinine clearance per dosing reference text.Please contact the Clinical Pharmacist for questions. eGFR 18 (L) >60 mL/min [facility] MAIN LAB Comment: The eGFR is not validated for use in drug dosing adjustments.Continue to use estimated creatinine clearance per dosing reference text.Please contact the Clinical Pharmacist for questions. Specimen Blood Performing Organization Address City/State/Zipcode Phone Number [facility] [address] [place] [address] * CBC (08/26/2017 4:00 AM) White Blood Cells 6.8 4.5 - 11.0 K/UL [facility] RBC 3.35 (L) 4.0 - 5.0 M/UL [facility] Hemoglobin 10.0 (L) 12.0 - 15.0 GM/DL [facility] Hematocrit 30.4 (L) 36 - 45 % [facility] MCV 90.8 80 - 100 FL [facility] MCH 29.9 26 - 34 PG [facility] MCHC 33.0 32.0 - 36.0 G/DL [facility] RDW 12.8 11 - 15 % [facility] Platelet Count 286 150 - 400 K/UL [facility] MPV 7.5 7 - 11 FL [facility] Specimen Blood Performing Organization Address City/[facility]/Zipcode Phone Number [facility] [address] [place] [address] * BLOOD TYPE CONFIRMATION - ORDER ONLY IF REQUESTED BY LAB (08/25/2017 7:20 PM) ABO/RH(D) A NEG MAIN LAB Specimen Blood Performing Organization Address [facility] Phone Number MAIN LAB [address] [place] [address] * C DIFFICILE BY PCR (08/25/2017 6:30 PM) Battery Name C DIFFICILE PCR MAIN LAB Specimen Description FECES MAIN LAB Special Requests NONE MAIN LAB C. Difficile Toxin B PCR NEGATIVE-wait 7 days to repeat MAIN LAB test Report Status FINAL MAIN LAB 08/26/2017 Specimen Feces Performing Organization Address City/[facility] Phone Number MAIN LAB [address] [place] [address] * TYPE & CROSSMATCH (08/25/2017 5:24 PM) Units Ordered 2 MAIN LAB Crossmatch Expires 08/28/2017 MAIN LAB Record Check 2ND TYPE REQUIRED MAIN LAB ABO/RH(D) A NEG MAIN LAB Antibody Screen NEG MAIN LAB Electronic Crossmatch YES MAIN LAB Specimen Blood Performing Organization Address [facility] Phone Number MAIN LAB [address] [place] [address] * CBC AND DIFF (08/25/2017 5:22 PM) [...] - 15 % MAIN LAB Platelet Count 297 150 - 400 K/UL MAIN LAB MPV 7.6 7 - 11 FL MAIN LAB Neutrophils 83 (H) 41 - 77 % MAIN LAB Lymphocytes 6 (L) 24 - 44 % MAIN LAB Monocytes 10 4 - 12 % MAIN LAB Eosinophils 1 0 - 5 % MAIN LAB Basophils 0 0 - 2 % MAIN LAB Absolute Neutrophil Count 6.40 1.8 - 7.0 K/UL MAIN LAB Absolute Lymph Count 0.50 (L) 1.0 - 4.8 K/UL [facility] MAIN LAB Absolute Monocyte Count 0.70 0 - 0.80 K/UL [facility] MAIN LAB Absolute Eosinophil Count 0.00 0 - 0.45 K/UL [facility] MAIN LAB Absolute Basophil Count 0.00 0 - 0.20 K/UL [facility] MAIN LAB Specimen Blood Performing Organization Address City/[facility]/Zipcode Phone Number [facility] MAIN [facility] [address] [place] [address] * US RENAL [employer]ADDER [employer] (08/25/2017 4:16 [...] on 08/25/2017 4:15 PM. Performing Organization Address City/[facility]/Zipcode Phone Number KU RAD RESULTS * IRON + BINDING CAPACITY + %SAT+ FERRITIN (08/25/2017 4:09 AM) Iron 21 (L) 50 - 160 MCG/DL [facility] MAIN LAB Iron Binding-TIBC 279 270 - 380 MCG/DL [facility] MAIN LAB % Saturation 8 (L) 28 - 42 % [facility] MAIN LAB Ferritin 88 10 - 200 NG/ML [facility] MAIN LAB Performing Organization Address [facility] Phone Number [facility] MAIN LAB [address] [place] [phone] * VANCOMYCIN RANDOM (08/25/2017 4:09 AM) Vancomycin Random 25.1 MCG/ML [facility]U MAIN LAB Specimen Blood Performing Organization Address [facility] Phone Number [facility] MAIN [facility] [address] [place] [address] * BASIC METABOLIC PANEL (08/25/2017 4:09 AM) [...] for questions. Specimen Blood Performing Organization Address [facility] Phone Number [facility] MAIN [facility] [address] [place] [address] * CBC (08/25/2017 4:09 AM) White Blood [...] 32.0 - 36.0 G/DL MAIN LAB RDW 12.9 11 - 15 % MAIN LAB Platelet Count 259 150 - 400 K/UL MAIN LAB MPV 7.5 7 - 11 FL MAIN LAB Specimen Blood Performing Organization Address City/[facility]/Zipcode Phone Number MAIN LAB [address] [place] [phone] * ECG-SCAN (08/24/2017 7:40 PM) Narrative Performed At Ordered by an unspecified provider. * VANCOMYCIN TROUGH (08/24/2017 3:47 AM) Vancomycin Trough 34.1 (HH) 10.0 - 20.0 MCG/ML MAIN LAB Comment: Critical Value VANC_T: Called To: ADELINA Esposito at: 06:09:34 by: ALIRIO Read back by: ADELINA Esposito Performing Organization Address [facility] Phone Number MAIN LAB [address] [place] [phone] * BASIC METABOLIC PANEL (08/24/2017 3:47 AM) Sodium 136 (L) 137 - 147 MMOL/L MAIN LAB Potassium 4.0 3.5 - 5.1 MMOL/L MAIN LAB Chloride 98 98 - 110 MMOL/L MAIN LAB CO2 31 (H) 21 - 30 MMOL/L [facility]U MAIN LAB Anion Gap 7 3 - 12 KU MAIN LAB Glucose 138 (H) 70 - 100 MG/DL [facility] MAIN LAB Blood Urea Nitrogen 20 7 - 25 MG/DL MAIN LAB Creatinine 1.65 (H) 0.4 - 1.00 MG/DL MAIN LAB Calcium 9.2 8.5 - 10.6 MG/DL MAIN LAB eGFR Non 31 (L) >60 mL/min MAIN LAB Comment: The [...] for questions. Specimen Blood Performing Organization Address City/[facility]/Zipcode Phone Number MAIN LAB [address] [place] [phone] * CBC (08/24/2017 3:47 AM) White Blood Cells 9.1 4.5 - 11.0 K/UL [facility] MAIN LAB RBC 3.77 (L) 4.0 - 5.0 M/UL [facility] MAIN LAB Hemoglobin 11.3 (L) 12.0 - 15.0 GM/DL KU MAIN LAB Hematocrit 34.5 (L) 36 - 45 % K[facility] MAIN LAB MCV 91.4 80 - 100 FL KU MAIN LAB MCH 30.0 26 - 34 PG [facility] MAIN LAB MCHC 32.8 32.0 - 36.0 G/DL [facility] MAIN LAB RDW 13.1 11 - 15 % [facility] MAIN LAB Platelet Count 314 150 - 400 K/UL [facility] MAIN LAB MPV 7.4 7 - 11 FL MAIN LAB Specimen Blood Performing Organization Address [facility] Phone Number [facility] MAIN [facility] [address] [place] [address] * CULTURE-FUNGAL,OTHER (08/23/2017 12:42 PM) Battery Name FUNGUS CULTURE [facility]U MAIN LAB Specimen Description TISSUE ANKLE [facility]U MAIN LAB RIGHT Special Requests NONE KU MAIN LAB Culture NO GROWTH OF FUNGUS AT 4 WEEKS KU MAIN LAB Report Status FINAL [facility] MAIN LAB 09/22/2017 Specimen Tissue - Ankle Performing Organization Address [facility] Phone Number MAIN LAB [address] [place] [phone] * GRAM STAIN (08/23/2017 12:42 PM) Battery Name GRAM STAIN [facility] MAIN LAB Specimen Description TISSUE ANKLE KU MAIN LAB RIGHT Special Requests NONE KU MAIN LAB Gram Stain MODERATE KU MAIN LAB NEUTROPHILS FEW INTRACELLULAR GRAM POSITIVE COCCI RESEMBLING STAPHYLOCOCCI Report Status FINAL [facility] MAIN LAB 08/23/2017 Specimen Tissue - Ankle Performing Organization Address [facility] Phone Number [facility] MAIN [facility] [address] [place] [address] * CULTURE-WOUND/TISSUE/FLUID(AEROBIC ONLY)W/SENSITIVITY (08/23/2017 12:42 PM) Battery Name ROUTINE CULTURE KU MAIN LAB Specimen Description TISSUE ANKLE KU MAIN LAB RIGHT Special Requests NONE MAIN LAB Direct Gram Stain MODERATE MAIN LAB NEUTROPHILS FEW INTRACELLULAR GRAM POSITIVE COCCI RESEMBLING STAPHYLOCOCCI Culture Moderate growth KU MAIN LAB STAPHYLOCOCCUS AUREUS See previous susceptibility Report Status FINAL [facility] MAIN LAB 08/25/2017 Specimen Tissue - Ankle Performing Organization Address [facility] Phone Number MAIN LAB [address] [place] [address] * CULTURE-ANAEROBIC (08/23/2017 12:42 PM) Battery Name ANAEROBE CULTURE MAIN LAB Specimen Description TISSUE ANKLE MAIN LAB RIGHT Special Requests NONE MAIN LAB Culture NO ANAEROBES ISOLATED MAIN LAB Report Status FINAL MAIN LAB 08/28/2017 Specimen Tissue - Ankle Performing Organization Address City/[facility]/Zipcode Phone Number MAIN LAB [address] [place] [phone] * BASIC METABOLIC PANEL (08/23/2017 3:43 AM) Sodium 143 137 - 147 MMOL/L MAIN LAB Potassium 3.8 3.5 - 5.1 MMOL/L MAIN LAB Chloride 108 98 - 110 MMOL/L MAIN LAB CO2 29 21 - 30 MMOL/L MAIN LAB Anion Gap 6 3 - 12 MAIN LAB Glucose 94 70 - 100 MG/DL MAIN LAB Blood Urea Nitrogen 10 7 - 25 MG/DL MAIN LAB Creatinine 0.69 0.4 - 1.00 MG/DL MAIN LAB Calcium 9.1 8.5 - 10.6 MG/DL MAIN LAB eGFR Non >60 >60 mL/min [...] for questions. Specimen Blood Performing Organization Address City/[facility]/Zipcode Phone Number [facility] [address] [place] [address] * CBC (08/23/2017 3:43 AM) White Blood Cells 5.6 4.5 - 11.0 K/UL MAIN LAB RBC 3.71 (L) 4.0 - 5.0 M/UL MAIN LAB Hemoglobin 11.0 (L) 12.0 - 15.0 GM/DL MAIN LAB Hematocrit 34.0 (L) 36 - 45 % MAIN LAB MCV 91.8 80 - 100 FL MAIN LAB MCH 29.8 26 - 34 PG MAIN LAB MCHC 32.4 32.0 - 36.0 G/DL KU MAIN LAB RDW 13.3 11 - 15 % KU MAIN LAB Platelet Count 269 150 - 400 K/UL K[facility] MAIN LAB MPV 7.8 7 - 11 FL [facility] MAIN LAB Specimen Blood Performing Organization Address City/[facility] Phone Number [facility] MAIN LAB [address] [place] [address] * CHEST SINGLE VIEW (08/22/2017 6:49 PM) [...] on 08/23/2017 7:32 AM. Performing Organization Address City/State/Zipcode Phone Number KU RAD RESULTS * GRAM STAIN (08/22/2017 1:07 PM) Battery Name GRAM STAIN [facility]U MAIN LAB Specimen Description SWAB MAIN LAB RIGHT FOOT INCISION MEDIAL Special Requests NONE KU MAIN LAB Gram Stain FEW KU MAIN LAB NEUTROPHILS FEW RBC'S FEW GRAM POSITIVE COCCI RESEMBLING STAPHYLOCOCCI Report Status FINAL KU MAIN LAB 08/22/2017 Specimen Swab Performing Organization Address City/[facility]/Zipcode Phone Number [facility] MAIN LAB [address] [place] [address] * GRAM STAIN (08/22/2017 1:07 PM) Battery Name GRAM STAIN [facility] MAIN LAB Specimen Description SYNOVIAL FLUID KU MAIN LAB RIGHT ANKLE Special Requests NONE KU MAIN LAB Gram Stain MANY KU MAIN LAB RBC'S RARE NEUTROPHILS NO ORGANISMS SEEN Report Status FINAL [facility] MAIN LAB 08/22/2017 Specimen Synovial Fluid Performing Organization Address [facility] Phone Number [facility] MAIN [facility] [address] [place] [address] * GRAM STAIN (08/22/2017 1:07 PM) Battery Name GRAM STAIN [facility]U MAIN LAB Specimen Description SWAB KU MAIN LAB RIGHT FOOT INCISION DORSAL Special Requests NONE KU MAIN LAB Gram Stain FEW KU MAIN LAB NEUTROPHILS FEW RBC'S RARE GRAM POSITIVE COCCI RESEMBLING STAPHYLOCOCCI Report Status FINAL [facility] MAIN LAB 08/22/2017 Specimen Swab Performing Organization Address [facility] Phone Number [facility] MAIN [facility] [address] [place] [address] * CULTURE-WOUND/TISSUE/FLUID(AEROBIC ONLY)W/SENSITIVITY (08/22/2017 1:07 PM) Battery [...] LAB 08/24/2017 Specimen Swab Performing Organization Address [facility] Phone Number [facility] [address] [place] [address] * CULTURE-WOUND/TISSUE/FLUID(AEROBIC ONLY)W/SENSITIVITY (08/22/2017 1:07 PM) Battery Name ROUTINE CULTURE [facility] Specimen Description SWAB [facility] RIGHT FOOT INCISION MEDIAL Special Requests NONE [facility] Direct Gram Stain FEW [facility] NEUTROPHILS FEW RBC'S FEW GRAM POSITIVE COCCI RESEMBLING STAPHYLOCOCCI Culture Moderate growth [facility] STAPHYLOCOCCUS AUREUS Negative for PBP2A, indicating that isolate is MSSA (A) Report Status FINAL [facility] 08/24/2017 Organism ID Moderate growth [...] INTERPRETATION Susceptible Moderate growth Trimethsulfa RICK (MCG/ML) <=02/28 SUSCEPTIBLE: staphylococcus aureus INTERPRETATION Susceptible Moderate growth Method RICK (MCG/ML) RICK (MCG/ML) staphylococcus aureus INTERPRETATION INTERPRETATION Performing Organization Address [facility] Phone Number MAIN LAB [address] [place] [address] * CULTURE-FUNGAL,OTHER (08/22/2017 1:07 PM) Battery Name FUNGUS CULTURE MAIN LAB Specimen Description SYNOVIAL FLUID MAIN LAB RIGHT ANKLE Special Requests NONE MAIN LAB Culture NO GROWTH OF FUNGUS AT 4 WEEKS MAIN LAB Report Status FINAL MAIN LAB 09/22/2017 Specimen Synovial Fluid Performing Organization Address [facility] Phone Number MAIN LAB [address] [place] [address] * CULTURE-WOUND/TISSUE/FLUID(AEROBIC ONLY)W/SENSITIVITY (08/22/2017 1:07 PM) Battery Name ROUTINE CULTURE MAIN LAB Specimen Description SYNOVIAL FLUID MAIN LAB RIGHT ANKLE Special Requests NONE MAIN LAB Direct Gram Stain MANY MAIN LAB RBC'S RARE NEUTROPHILS NO ORGANISMS SEEN Culture NO GROWTH 5 DAYS [facility] Report Status FINAL MAIN LAB 08/27/2017 Specimen Synovial Fluid Performing Organization Address [facility] Phone Number MAIN LAB [address] [place] [address] * CRYSTAL ANALYSIS-SYNOVIAL FLUID (08/22/2017 1:02 PM) Color,Synovial Fluid BLOODY RED MAIN LAB Clarity,Synovial Fluid CLOUDY MAIN LAB Crystal Exam,Snovial NO CRYSTALS OBSERVED MAIN LAB Fluid Pathology Signature INTERPRETED BY ANDREW PEÑA M.D. MAIN LAB By the PATH SIGNATURE ABOVE, I attest that I have personally formulated the final interpretation expressed in this report and that the above diagnosis is based upon my examination of the slides and/or other material indicated in this report. Specimen Synovial fluid - Synovial Fluid Performing Organization Address [facility]/Zipcode Phone Number [facility] [address] [place] [phone] * CELL COUNT W/DIFF-SYN FLUID (08/22/2017 1:02 [...] Pathologist Signature INTERPRETED BY ANDREW PEÑA M.D. [facility] By the PATH SIGNATURE ABOVE, I attest that I have personally formulated the final interpretation expressed in this report and that the above diagnosis is based upon my examination of the slides and/or other material indicated in this report. Specimen Synovial fluid - Synovial Fluid Performing Organization Address City/State/Zipcode Phone Number [facility] [address] [place] [address] * ANKLE MIN 3 VIEWS RIGHT (08/22/2017 [...] 1:15 PM. Narrative Performed At Right ankle [facility] RAD RESULTS CLINICAL DATA: Post operative problem [...] on 08/22/2017 1:15 PM. Performing Organization Address [facility] Phone Number RAD RESULTS * POC LACTATE (08/22/2017 11:17 AM) LACTIC ACID POC 0.8 0.5 - 2.0 MMOL/L [facility] Performing Organization Address [facility] Phone Number MAIN LAB [address] [place] [address] * C REACTIVE PROTEIN (CRP) (08/22/2017 11:15 AM) C-Reactive Protein 7.87 (H) <1.0 MG/DL [facility] Specimen Blood Performing Organization Address [facility] Phone Number MAIN LAB [address] [place] [address] * SED RATE (08/22/2017 11:15 AM) Sed Rate -ESR 60 (H) 0 - 30 MM/HR [facility] Specimen Blood Performing Organization Address [facility] Phone Number MAIN LAB [address] [place] [address] * COMPREHENSIVE METABOLIC PANEL (08/22/2017 11:15 AM) [...] Address City/State/Zipcode Phone Number [facility] [address] [place] [address] * CBC AND DIFF (08/22/2017 11:15 AM) [...] Organization Address City/State/Zipcode Phone Number MAIN LAB [address] [place] [address] in this encounter Visit Diagnoses Diagnosis Wound infection Posttraumatic wound infection not elsewhere classified Admitting Diagnoses Diagnosis Wound infection Wound infection Posttraumatic wound infection not elsewhere classified Wound infection Posttraumatic wound infection not elsewhere classified Administered Medications Medication Order MAR Action Action Date Dose Rate Site ALPRAZolam (XANAX) tablet 0.25 mg Given 09/01/2017 0.25 mg 0.25 mg, Oral, THREE TIMES DAILY PRN, 03:50 CDT Starting Fri08/27/17 at 1751, Until Fri09/02/17 at 1503, Anxiety PO Given 09/01/2017 0.25 mg 21:57 CDT Given 09/02/2017 0.25 mg 03:33 CDT amLODIPine (NORVASC) tablet 10 mg Given 08/31/2017 10 mg 10 mg, Oral, DAILY, First dose on Fri: CDT 08/22/17 at 1600, Until Discontinued, NURSING: Please educate patient and document: Do not give with grapefruit juice. Given 09/01/2017 10 mg 08:18 CDT Given 09/02/2017 10 mg 07:55 CDT aspirin tablet 325 mg Given 08/31/2017 325 mg 325 mg, Oral, DAILY, First dose on Fri:22 CDT 08/22/17 at 1600, Until Discontinued Given 09/01/2017 325 mg 08:18 CDT Given 09/02/2017 325 mg 07:54 CDT atorvastatin (LIPITOR) tablet 20 mg Given 08/31/2017 20 mg 20 mg, Oral, DAILY, First dose on Fri:22 CDT 08/22/17 at 1600, Until Discontinued Given 09/01/2017 20 mg 08:20 CDT Given 09/02/2017 20 mg 07:54 CDT cloNIDine (CATAPRESS) tablet 0.2 mg Given 09/01/2017 0.2 mg 0.2 mg, Oral, TWICE DAILY, First dose on 08:20 CDT 08/31/17 at 2100, Until Discontinued, Hold for heart [...] mg 08:[address] (CYMBALTA) capsule 90 mg 90 mg, Oral, AT BEDTIME DAILY, First dose on Fri09/02/17 at 2100, Until Discontinued fentaNYL citrate PF (SUBLIMAZE) Given 08/23/2017 50 mcg injection 25-50 mcg 16:05 CDT 25-50 mcg, Intravenous, EVERY 1 HOUR PRN, Starting Fri08/22/17 at 1546, Until Fri09/02/17 at 1503, Pain Injectable, Begin once PNC/[employer]ACT ADMINISTRATIVE ASSISTANT has been discontinued. furosemide (LASIX) tablet 40 mg 40 mg, Oral, DAILY, First dose on Fri09/03/17 at 0900, Until Discontinued hydrALAZINE (APRESOLINE) injection 10 mg Given 08/31/2017 10 mg 10 mg, Intravenous, EVERY 6 HOURS PRN, 07:12 CDT Starting Fri08/27/17 at 0223, Until Fri09/02/17 at 1503, Blood Pressure..., Systolic Blood Pressure..., for systolic >180 Given 08/31/2017 10 mg 21:11 CDT Given 09/01/2017 10 mg 19:18 CDT HYDROcodone/acetaminophen (NORCO) 5/325 Given 09/01/2017 2 [...] 08/31/2017 Topical, TWICE DAILY, First dose on Fri 20:56 CDT 08/28/17 at 1145, Until Discontinued, Apply to rash bid prn itching Given 09/01/2017 08:22 CDT Given 09/01/2017 20:07 CDT lactobacillus rhamnosus GG (CULTURELLE) Given 09/01/2017 [...] CDT Given 09/01/2017 1 drop 20:07 CDT milk of magnesia (CONC) oral suspension Given 08/23/2017 10 mL 10 mL 20:17 CDT 10 mL, Oral, DAILY, First dose on Fri08/22/17 at 2100, Until Discontinued, Administer daily until patient has return of normal bowel function, then give daily PRN constipation. 10 mL CONC=30 mL MOM Given 08/26/2017 10 mL 21:01 CDT nebivolol (BYSTOLIC) tablet 20 mg Given 09/01/2017 20 mg 20 mg, Oral, TWICE DAILY, First dose on 20:08 CDT 09/01/17 at 2100, Until Discontinued, Hold for heart rate < 60 bpm or systolic BP < 100 Given 09/02/2017 20 mg 07:54 CDT nystatin (MYCOSTATIN) oral suspension Given 09/01/2017 500,000 500,000 Units 18:52 CDT Units 500,000 Units, Oral, FOUR TIMES DAILY, First dose on Fri09/01/17 at 1030, Until Discontinued Given 09/01/2017 500,000 21:56 CDT Units Given 09/02/2017 500,000 07:53 CDT Units ondansetron (ZOFRAN) injection 4-8 mg Given 08/25/2017 4 mg 4-8 mg, Intravenous, EVERY 6 HOURS PRN, 11:37 CDT Starting Fri08/25/17 at 1123, Until Fri09/02/17 at 1503, Nausea/Vomiting Injectable Given 08/25/2017 4 mg 16:40 CDT Given 08/25/2017 4 mg 20:32 CDT polyethylene glycol 3350 (MIRALAX) Given 08/23/2017 17 g packet 17 g 20:18 CDT 17 g (1 packet), Oral, DAILY, First dose on Fri08/23/17 at 2100, Until Discontinued, 8.5 GRAMS=0.5 PACKET 17 GRAMS=1 PACKET 34 GRAMS=2 PACKETS Given 08/24/2017 17 g 08:01 CDT prochlorperazine (COMPAZINE) injection Given 08/25/2017 10 mg 10 mg 12:49 CDT 10 mg, Intravenous, EVERY 6 HOURS PRN, Starting Fri08/25/17 at 1123, Until Fri09/02/17 at 1503, Nausea/Vomiting Injectable, Nausea/Vomiting not relieved by Ondansetron, PROTECT FROM LIGHT -- May be given undiluted, or each 5mg may be diluted with 9 mL of NS to facilitate titration. rifAMPin (RIFADINE) capsule 300 mg Given 09/01/2017 [...] TWICE DAILY, First dose 20:18 CDT on Fri08/23/17 at 2100, Until Discontinued, Hold for loose stools Given 08/24/2017 1 tablet 08:02 CDT Given 08/26/2017 1 tablet 21:49 CDT timolol maleate (TIMOPTIC) 0.5 % Given 08/31/2017 1 drop ophthalmic drops 1 drop 08:22 CDT 1 drop, Both Eyes, DAILY, First dose on Fri08/22/17 at 1600, Until Discontinued Given 09/01/2017 1 drop 08:23 CDT Given 09/02/2017 1 drop 07:52 CDT in this encounter
--- OUTSIDE RECORDS SUMMARY | 2017-09-23 16:43 | XMS REPORT | Encounter Summary ---
Author Author [facility] Organization [facility] Address Unknown Phone Unavailable Care Team Providers Care Plywood Layup Line Back Feeder Name Role Phone Joao Clemons MD Unavailable Vadim Waggoner MD PCP Reason for Visit * Reason Comments Post-Op Problem total right ankle replacement 5 weeks ago on 07/18/17 * Auth/Cert Status Reason Specialty Diagnoses / Referred By Referred To Procedures Contact Contact Diagnoses Wound infection Wound infection Encounter Details Date Type Department Care Team Description 08/23/2017 Surgery Main Operating Room Cristobal Neely MD DEBRIDEMENT [facility] 2nd fl [address] EXTREMITY, ANKLE [address] [place] [address] [place] [address] [phone] Social History Tobacco Use Types Packs/Day Years [...] was applied. PICC line was placed and intermediate IV abx was established. The patient was [...] ID, Internal Medicine and Nephrology Patient Disposition: Care Home Facility Patient instructions/medications: Activity as Tolerated It [...] 4:30 PM) Call the Orthopedic clinic at [phone] AFTER BUSINESS HOURS AND WEEKENDS Call [phone] and ask the hat blocking machine operator to page the on-call Orthopedic Resident. Discharging attending physician: JOAO CLEMONS [[id number]] Regular Diet You have no dietary restriction. Please continue with a healthy balanced diet. While taking pain medications: - Drink plenty of fluids (not including alcohol) - Add extra fiber to your diet - Continue your stool softeners to help prevent constipation Complete if patient is going to a Care Home Facility I certify that the patient requires skilled care Yes The patient's stay is expected to be less than 30 days Yes I will be in charge of patient in custodial No Wound Care Keep wound clean and [...] than 100 degrees Return Appointment Please call [phone] or [phone] to make or confirm post op appointment. Provider JOAO CLEMONS [[id number]] Opioid (Narcotic) Safety Information OPIOID (NARCOTIC) PAIN [...] maintain regular, soft bowel movements. PICC Line Half-Way Care Instructions: *Catheter must be covered with [...] change instructions. Return Appointment Dr. Reyes at [facility]. Appointment date: 12/01/2017 Appointment time: 2:00 [...] 4:30 PM) Call the Orthopedic clinic at [phone] AFTER BUSINESS HOURS AND WEEKENDS Call [phone] and ask the hat blocking machine operator to page the on-call Orthopedic Resident. Discharging attending physician: JOAO CLEMONS [[id number]] Regular Diet You have no dietary restriction. [...] fever greater than 100 degrees PICC Line Half-Way Care Instructions: *Catheter must be covered with [...] instructions. Return Appointment [facility] Provider JOAO CLEMONS [[id number]] Appointment date: 09/16/2017 Appointment time: 12:30 PM [...] up as indicated above. Jamil Madrid Pager [phone] 09/04/2017 cc: Primary Care Physician: Verified Referring [...] RN - 09/02/2017 1:03 PM CDT Steff Judde Jorge Alberto discharged on 09/02/2017. . Discharge instructions reviewed [...] and MGUS. Recovering. Dispo: discharge today to [facility] G[facility] * Tamiko Vargas MD - [...] weekly for ID- lasb faxed to ID [id number]. Renal would like labs every few days [...] MD Pager [phone] Infectious Diseases Faculty * JoceFaustina leongLELAND-B2B OUTSIDE SALES REPRESENTATIVE - 09/02/2017 7:49 AM CDT Formatting of [...] on SPEP and poorly controlled hypertension. Assessment NOI- improving - etiologies includes ATN in setting [...] recent Echo (per patient report) at [facility] in [place], which was normal ; attempted to obtain report but has arrived Diarrhea- has occurred since starting antibiotics, C.diff negative on 08/25, repeat C.diff negative 09/01 Thrush- started on nystatin HTN- uncontrolled - BACK OFFICE MEDICAL ASSISTANT regimen of amlodipine 10mg daily, clonidine 0.1mg bid, nebivolol 10mg bid , lisinopril 40mg daily - BACK OFFICE MEDICAL ASSISTANT lisinopril held due to ONI - SBP 140-170s Monoclonal M-spike on SPEP, Anemia - likely MGUS in the setting of no lytic lesions on skeletal survey - discovered during workup of ONI - skeletal survey (08/28) with no evidence of lytic lesions - urine PARMJIT with free kappa light chain - Hematology consulted; will follow up outpatient Hematology [facility] - will start on iron on discharge [...] rifampin being held for now HLD- continue BACK OFFICE MEDICAL ASSISTANT atorvastatin and ASA Recommendations: - continue supportive [...] needs further assistance, the service should page [phone] (24 hours a day/7 days a week) to discuss the case. Faustina Hobson APRN-B2B OUTSIDE SALES REPRESENTATIVE Pager [phone] Subjective Steff Ivis Azul is a 72 [...] (98.4 F) (09/02 509) Pulse: 83 (09/02 0410) Respirations: 18 PER MINUTE (09/02 509) SpO2: [...] 32 (L) >60 mL/min Glucose: (!) 110 (09/02/170) Radiology and other Diagnostics Review: Pertinent radiology reviewed. Point of Care Testing (Last 24 hours) Glucose: (!) 110 (09/02/170) Faustina Hobson APRN-B2B OUTSIDE SALES REPRESENTATIVE Pager [phone] Consult Pager [phone] Associated attestation - Nikolai Menchaca MD - [...] Echo reportedly normal done in June in [facility] [place]. Currently on Lasix twice daily for pulmonary [...] leg with splint and cast in place RESIDENT CARE MANAGER RN: alert and oriented to PPT Lab Review [...] Date: 09/02/17 Med-private Team consult Team Pager [phone] * Ayesha Gunderson APRN - 09/01/2017 7:52 PM CDT Formatting of [...] or orange juice -arranged f/u with @ [facility] in [place], [place] on 12/01 @ 2pm. Will fax [...] Diagnostics Review: Pertinent radiology reviewed. Ayesha Gunderson, HOME CARE PROVIDER Pager [phone] * Glo Vidal MD - 09/01/2017 5:51 [...] Vital Signs: 24 Hour Range BP: 172/78 (09/014) Temp: 36.8 C (98.2 F) (09/01 1453) [...] need CBC CMP ESR/CRP faxed to ID [id number]. FU in ID clinic in 2-3 [...] Pager [phone] Infectious Diseases Faculty * Faustina Hobson APRN-B2B OUTSIDE SALES REPRESENTATIVE - 09/01/2017 8:17 AM CDT Formatting of [...] - recent Echo (per patient report) at [facility] in [place], which was normal Leukocytosis - WBC 12.3, Afebrile - recent CXR (08/30) with no acute process Diarrhea- has occurred since starting antibiotics, C.diff negative on 08/25. Thrush- patient reports oral pain and white patches on tongue HTN- uncontrolled - BACK OFFICE MEDICAL ASSISTANT regimen of amlodipine 10mg daily, clonidine 0.1mg bid, nebivolol 10mg bid , lisinopril 40mg daily - BACK OFFICE MEDICAL ASSISTANT lisinopril held due to ONI - SBP [...] rifampin being held for now HLD- continue BACK OFFICE MEDICAL ASSISTANT atorvastatin and ASA Recommendations: - continue supportive care for ONI; creatinine improving - obtain BNP (ordered) - obtain Echo results from [facility] (ordered) - continue Lasix 40mg BID for [...] needs further assistance, the service should page [phone] (24 hours a day/7 days a week) to discuss the case. Faustina Hobson APRN-B2B OUTSIDE SALES REPRESENTATIVE Pager [phone] Subjective Steff Azul is a 72 y.o. female. Patient reports doing well today. Is possibly discharging to a custodial today for a few weeks to improve [...] Glucose: (!) 117 (09/01/17 0350) Faustina Hobson APRN-B2B OUTSIDE SALES REPRESENTATIVE Pager [phone] Consult Pager [phone] Associated attestation - Nikolai Menchaca MD - [...] Echo reportedly normal done in June in [facility] [place]. Currently on Lasix twice daily for pulmonary [...] edema on the on both lower extremities. RESIDENT CARE MANAGER RN: No focal neurologic deficit Lab Review 24-hour [...] MD Date: 09/01/17 Med-Consult team Team Pager [phone] * Jamil Madrid - 09/01/2017 7:31 AM [...] today for 1st post op visit. 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 amlodipine 10mg daily, clonidine 0.1mg bid, [...] meq on discharge until off lasix Disposition usp facility Please have SW check with usp facility if the patient can be discharged on Daptomycin as it is expensive and some SNF may not accept the patient on this medication FEN: No IVF, Reg diet, lytes prn PPX: SCDs, chemoprophylaxis Ronnie Resendiz MD [id number] Subjective Pt feels less shortness of breath [...] Date: 08/31/2017 Roberson AC=Airway clearance AM=Aerosolized medication BA=Sutter aerosol DB&C=Deep breathe & cough FEV1=Forced expiratory volume in first second) IC=Inspiratory capacity LE=Lung expansion MDI=Metered dose inhaler Neb=Nebulizer O2=Oxygen Oxim=Oximetry PEFR=Peak expiratory flow rate RELIABILITY TECHNICIAN=Rapid Response Team * Dmitriy Arguelles MD - [...] intact. Complete Blood Counts Recent Labs 08/29/17 04308/30/17 0350 08/31/17 0330 HGB 10.1* 10.6* 10.4* HCT 28.8* 32.2* 31.5* WBC 8.7 9.2 10.2 PLTCT 333 414* 402* Chemistry Panel Recent Labs 08/29/1742908/30/17 0350 08/31/17 0330 NA 135* 135* 135* [...] to discharge Friday. Will need datpo at [facility] [phone] * Tamiko Vargas MD - 08/30/2017 [...] on RA, lungs clear to auscultation. Time MD/B2B OUTSIDE SALES REPRESENTATIVE Notified: [id number] MD/B2B OUTSIDE SALES REPRESENTATIVE Name: Dr. 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 Time MD/B2B OUTSIDE SALES REPRESENTATIVE Notified: [id number] MD/B2B OUTSIDE SALES REPRESENTATIVE Name: Dr. Blane PISANO/B2B OUTSIDE SALES REPRESENTATIVE Response: If unable to get a hold [...] 08/29/2017 2:53 PM CDT Reason for Visit: Organizational Psychologist followup Jacqueline/Jehovah'S Witness: na Source of Purpose/Meaning: na Worries/Concerns/Struggles: :Last [...] bl pulm edema Karina August DO Pager [phone] Infectious Diseases Faculty * Glo Vidal MD [...] States she was on lasix 40 po/d BACK OFFICE MEDICAL ASSISTANT. Usual wt 175 lbs. 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 Carlos Jama DO Date: 08/29/2017 Internal Medicine, Hospitalist [phone] * Franklin Nur MD - 08/29/2017 7:29 [...] with consulted services. Franklin Nur MD Pager [phone] * Tyesha Fitzgerald DO - 08/28/2017 5:21 [...] Dr. Abarca. Tyesha Fitzgerald, DO PGY-2 Pager [phone] Subjective Steff Azul is a 72 y.o. [...] Pertinent radiology reviewed. Tyesha Fitzgerald DO Pager [phone] Associated attestation - Parviz Abarca MD - 08/29/2017 6:42 AM CDT I have seen, examined, discussed and participated in all medical decision making regarding Ms Azul's care. I agree with Dr Fitzgerlad's note with the following additions and/or exceptions: [...] the scheduled lasix was ordered. Paged [phone]. * Jackelin Blue, PT - 08/28/2017 2:15 [...] PM CDT Reason for Visit: jade visit Jacqueline/Jehovah'S Witness: yarsanism Source of Purpose/Meaning: God==4 dogs=,friends Worries/Concerns/Struggles: Patient [...] She attends and is active in a [employer] in [place], [place] and they are in touch wither [...] as needed, 02/09, through the campus switchboard ([phone]). For immediate response, please page [phone]. For a response within 24 hours, please submit an order in O2 for a type copy examiner consult or call the administrative voicemail at [phone]. Ciro Maurer, RT - 08/28/2017 12:56 PM [...] Date: 08/28/2017 Roberson AC=Airway clearance AM=Aerosolized medication BA=Sutter aerosol DB&C=Deep breathe & cough FEV1=Forced expiratory volume in first second) IC=Inspiratory capacity LE=Lung expansion MDI=Metered dose inhaler Neb=Nebulizer O2=Oxygen Oxim=Oximetry PEFR=Peak expiratory flow rate RELIABILITY TECHNICIAN=Rapid Response Team * Karina August, DO - [...] other issues. History of Present Illness Steff Auzl is a 72 y.o. Female with h/o [...] CXR 08/28 with bl pulm edema Karina DO Mata Pager [phone] Infectious Diseases Faculty * Glo Vidal MD - 08/28/2017 9:35 AM CDT Formatting of this note may be different from the original. General Progress Note Admission Date: 08/22/2017 LOS: 6 days Assessment/Plan: ONI--DDx incl med tox (NSAID, ACEI) vs AIN. UO brisk yest, though Cr without sig change X sev days. --no need for RELIABILITY TECHNICIAN at this time SOB--DDx incl pulm edema [...] answered. Active Problems: Wound infection Subjective Steff Auzl is a 72 y.o. female. Patient c/o [...] Low-High Color,UA YELLOW Turbidity,UA CLEAR CLEAR-CLEAR Specific [place]-Urine 1.004 1.003 - 1.035 pH,UA 5.0 5.0 [...] needed to evaluate for atrial fibrillation our vp & general counsel to the patient and recommendations were appropriate [...] Salas MD Advanced Heart Failure & Transplant Prospecting Driller Helper lot boss Director Division of Advanced Heart Failure & Cardiac Transplantation UNOS Primary Transplant Physician Imaging Aide, Heart Transplantation Center for Transplantation [facility] [email or web address] * Franklin Nur MD - 08/28/2017 7:17 [...] - Mechanical, Chemoprophylaxis Franklin Nur MD Pager [phone] * Sydnie Valerio RN - 08/27/2017 8:20 [...] 2345 if still hypertensive. * Mona Aguirre, YASMANI - 08/27/2017 2:33 PM CDT Formatting of [...] 121) Temp: 36.4 C (97.5 F) (08/27 1210) Pulse: 73 (08/27 121) Respirations: 18 PER [...] radiology images viewed. Karina August DO Pager [phone] Infectious Diseases Faculty * Glo Vidal MD [...] 0-10 (Pain 1): 2 (08/28/17 0754) Vitals: 07/13/18 1041 Weight: 79.4 kg (175 lb) Intake/Output [...] Low-High Color,UA YELLOW Turbidity,UA CLEAR CLEAR-CLEAR Specific [place]-Urine 1.004 1.003 - 1.035 pH,UA 5.0 5.0 [...] Place today. -regular diet - ONI. IVF. potline monitor appears to have peaked, nephrology following. Heme [...] have urol eval. 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 Would ask heme to see tomorrow. * Karina August, DO - 08/26/2017 1:21 PM CDT Formatting [...] 5. Will need SL picc line for terminal block assembler IV antibiotic, Consult CM to help set [...] 3.14 mg/dL (H)) . Medications Scheduled Meds: [APR Hold] ALPRAZolam (XANAX) tablet 0.5 mg [...] chloride 0.9 % infusion PRN and Respiratory Meds:[APR Hold] acetaminophen Q4H PRN OR [APR Hold] acetaminophen Q4H PRN, [APR Hold] bisacodyl QDAY PRN, [Apr] diphenhydrAMINE Q6H PRN OR [Apr] diphenhydrAMINE Q6H PRN, [APR Hold] fentaNYL citrate PF Q1H PRN, [APR Hold] HYDROcodone/acetaminophen Q4H PRN, [APR Hold] ondansetron (ZOFRAN) IV Q6H PRN, [APR Hold] prochlorperazine Q6H PRN Physical Examination Vital Signs: [...] data reviewed. Pertinent radiology images viewed. Karina DO Mata Pager [phone] Infectious Diseases Faculty * Deyanira Morales MD [...] for surgery today. Will pass along to INTERMEDIATE FRAME TENDER. Oneil, INTERMEDIATE FRAME TENDER called for report. Advised 24 hr urine [...] Ancef/rifampin. ID consult. will need picc. - NPO@SD. - ONI. IVF. potline monitor increased again today, but slowing. consult nephrology -A.fib? EKG. Possible tele. Will review EKG. - N/V. diarrhea. added compazeine. C. diff neg. KUB today. dispo: continue inpt. OR today [phone] * Romy Pineda, RN - 08/25/2017 5:31 [...] Will continue to monitor. * Karina August, - 08/25/2017 4:17 PM CDT Formatting of [...] Will need SL picc line for intermediate IV antibiotic, Consult CM to help set [...] radiology images viewed. Karina August DO Pager [phone] Infectious Diseases Faculty * Giovana Reid - 08/25/2017 4:08 PM CDT Organizational Psychologist attempted visit first time, patient with an RN, second time with doctor. Will try again in the morning. Please call if needed before then. The spiritual care team is available as needed, 02/09, through the campus switchboard ([phone]). For immediate response, please page [phone]. For a response within 24 hours, please submit an order in O2 for a type copy examiner consult or call the administrative voicemail at [phone]. * Tammy Spear, PT - 08/25/2017 3:50 [...] Date: 08/25/2017 Roberson AC=Airway clearance AM=Aerosolized medication BA=Sutter aerosol DB&C=Deep breathe & cough FEV1=Forced expiratory volume in first second) IC=Inspiratory capacity LE=Lung expansion MDI=Metered dose inhaler Neb=Nebulizer O2=Oxygen Oxim=Oximetry PEFR=Peak expiratory flow rate RELIABILITY TECHNICIAN=Rapid Response Team * Jamil Madrid - 08/25/2017 [...] picc. - Regular diet. - ONI. IVF. potline monitor increased again today. consult nephrology -A.fib? EKG. Possible tele. dispo: continue inpt. [id number] * Theodore Sanchez, PHARMD - 08/25/2017 7:52 [...] ASSESSMENT/DISCHARGE NOTE Patient Name: Steff Azul Room/Bed: [place] [address] Admitting Diagnosis: Wound infection Past Medical History: [...] Shower Home Equipment: (4 wheeled walker, walker, point of sale associate) Prior Function Level Of [place]: Independent with ADLs and functional transfers;Needed assistance with homemaking Lives With: Alone Receives Help From: Rice Drier (cleaning person- who assists w/ laundry/dogs ) [...] 1.65 (H) 0.4 - 1.00 MG/DL Final 08/23/2017342 0.69 0.4 - 1.00 MG/DL Final 08/22/2017 1115 0.81 0.4 - 1.00 MG/DL Final Blood Urea Nitrogen Date/Time Value Ref Range Status 08/24/2017346 20 7 - 25 MG/DL Final Estimated [...] Final Comment: Critical Value VANC_T: Called To: CELIANA M at: 06:09:34 by: NDT Read back by: [...] follow up postoperative day one. Therapist: Toya Rutledge, OTR/L [id number] Date: 08/23/2017 * Jaiml Madrid - 08/23/2017 7:23 AM CDT Formatting [...] Lerma, PT Date: 08/23/2017 * Susie Trivedi [facility] - 08/22/2017 4:52 PM CDT Formatting of [...] and adjust therapy as needed. Susie Trivedi, [facility] 08/22/2017 * Toya Garza, RT - 08/22/2017 4:36 PM CDT Formatting of this note may be different from the original. RESPIRATORY THERAPY ADULT PROTOCOL EVALUATION RESPIRATORY PROTOCOL PLAN Medications Note: If indicated by protocol, medication orders will be placed by therapist. Procedures Oxygen/Humidity: O2 to keep SpO2 > 92% Monitoring: Pulse oximetry BID & PRN Comment: 2lpm MI Q PATIENT EVALUATION RESULTS Chart Review * [...] Date: 08/22/2017 Roberson AC=Airway clearance AM=Aerosolized medication BA=Sutter aerosol DB&C=Deep breathe & cough FEV1=Forced expiratory volume in first second) IC=Inspiratory capacity LE=Lung expansion MDI=Metered dose inhaler Neb=Nebulizer O2=Oxygen Oxim=Oximetry PEFR=Peak expiratory flow rate RELIABILITY TECHNICIAN=Rapid Response Team in this encounter H&P Notes [...] vanc/zosyn. Consult ID. IVF. - NPO at [facility]. OK for diet now. Discuss w/staff surgeons [...] Right 07/18/2017 ARTHROPLASTY REPLACEMENT TOTAL ANKLE ([facility] #[id number]) performed by Joao Clemons MD at [facility] [...] nerve or vessel damage were discussed. 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 YANIRA WEISS MD Pager: [phone] * Tyesha Fitzgerald DO - 08/27/2017 11:12 [...] Dr. Abarca. Tyesha Fitzgerald, DO PGY-2 Pager [phone] History of Present Illness: Steff Azul is [...] Right 07/18/2017 ARTHROPLASTY REPLACEMENT TOTAL ANKLE ([facility] #[id number]) performed by Joao Clemons MD at Main [...] Range Color,UA YELLOW Turbidity,UA CLEAR CLEAR-CLEAR Specific [place]-Urine 1.005 1.003 - 1.035 pH,UA 5.0 5.0 [...] No pertinent radiology. Tyesha Fitzgerald DO Pager [phone] Associated attestation - Parviz Abarca MD - [...] ankle swelling, erythema, pain X 4 days BACK OFFICE MEDICAL ASSISTANT, purulent drainage and fever X 2 days. [...] mo. Is followed by outside rheum in [place]. Past Medical History: Diagnosis Date Arthritis Back pain Fracture On supplemental oxygen therapy Osteoarthritis Osteoporosis Past Surgical History: Procedure Laterality Date TOTAL ANKLE ARTHROPLASTY Right 07/18/2017 ARTHROPLASTY REPLACEMENT TOTAL ANKLE ([facility] #[id number]) performed by Joao Clemons MD at [facility] [...] # # Low-High Vancomycin Random 25.1 MCG/ML @KUPRAVEENATRAD@ * Dima Parkinson MBBS - 08/23/2017 6:23 [...] having one ECHO done recently by her benefits technician at [place], [place] (Dr. Rafael Tadeo at [facility]) which apparently showed normal EF. [...] is NSR. Regularly regular pulse on exam. [id number] of 3. No hx of bleeding disorders. # HTN # Hx of mitral valve prolapse # Osteoarthritis Recommendations - Please obtain EKG - Please place on tele monitor - Please obtain perioperative Afib telemetry strip. - Please obtain records from her benefits technician - If any evidence of Afib on Tele, EKG, please obtain ECHO and re-consult cardiology - If there is evidence of Afib, we will review the ECHO performed and we will also start her on anticoagulation given her [id number] of 3 (HTN, Age >65 and Female sex). - We will sign off - Please call us back if any questions Thank you for allowing us to participate in the care of this patient. Discussed with Dr. Salas who agrees with plan above. LEXIE Garza CV Fellow Pager: [phone] Home Medications Prescriptions Prior to Admission Medication [...] Right 07/18/2017 ARTHROPLASTY REPLACEMENT TOTAL ANKLE ([facility] #[id number]) performed by Joao Clemons MD at [facility] [...] (48 hour Holter) when she sees her benefits technician in [place]. If she does indeed have paroxysmal a.fib after discharge (not related to post-op care) then she should initiate anticoagulation for stroke prevention. Provided counseling to patient. Call with questions we will sign off. Thank you for allowing us to participate in the shared care of your patient. Mati Salas MD Advanced Heart Failure & Transplant Prospecting Driller Helper Printing Press Operator Apprenticedisability case manager Director, Center for Heart Failure OS Primary Transplant Physician Imaging Aide, Heart Transplantation Center for Transplantation [facility] [email or web address] * Karina August DO - 08/23/2017 7:31 [...] 5. 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 Karina August DO Pager [phone] Infectious Diseases Faculty in this encounter Miscellaneous Notes * Case Mgmt DC Plan - Ellie Rahman - 09/02/2017 1:03 PM CDT Formatting of this note may be different from the original. Case Management Progress Note NAME:Steff Azul : AGE: 72 y.o. ADMISSION DATE: 08/22/2017 DAYS ADMITTED: LOS: 11 days Todays Date: 09/02/2017 Plan Anticipate pt discharging to [facility] at 1p via facility transport. Bret reviewed EMR and met with the team. Pt is medically stable to discharge to facility. Interventions ? Support Support: Pt/Family Updates re:POC or DC Plan Bret updated pt on discharge planning. ? Info or Referral ? Discharge Planning Discharge Planning: Care Home Facility Sw received messages from [facility]- neither facility can accept pt due to cost of IV abx. Bret spoke to admissions at [facility]- pt is accepted and can be admitted today. Doctor will need to sign letter of predictability- Dr. Madrid signed- Bret faxed to SNF. Transport scheduled for 1p. Bret updated team- RN report number- [phone]. Bret tasked OUTREACH LIAISON to fax discharge orders to [phone], and to print transfer packet and place in [facility]. ? Medication Needs ? Financial ? Legal [...] Selected Specialties Address Phone Number Fax Number [facility] [address] [place] [address] [phone] Home Care - Selection Complete Service Request Status Selected Specialties Address Phone Number Fax Number [facility] Selected Home Health Services [address], [place] [address] [phone] Dialysis/Infusion - Selection Complete Service Request Status Selected Specialties Address Phone Number Fax Number [facility] Selected Home Infusion and Injection Services [address] [facility] [address] [phone] Ellie Rahman LMSW *[phone] * Care Plan [...] Josefina Crawford - 09/02/2017 11:59 AM CDT OUTREACH LIAISON Note Printed and placed transfer packet in pt's wallaroo, per request from [facility]. Also faxed discharge orders to the facility as requested. Josefina Crawford Agency Legal Counsel For additional assistance, please contact [facility]*[phone] * Case Mgmt DC Plan - Ellie [...] planning- Bret went over Medicare.gov list and [facility] list. Pt is agreeable to going to facility in [place] and asked that Sw send referrals to [facility], [facility], and [facility] ? Info or Referral ? Discharge Planning Discharge Planning: Care Home Facility Sw tasked [facility] to send updates to [facility]. Sw called [facility]- supervisor road administrator stated that they would not be able to meet pt's medical needs and cannot afford pt due to cost of daptomycin. Sw sent referrals to [facility] and [facility]. ? Medication Needs ? Financial ? Legal [...] CARE SYSTEM Selected Home Health Services [address] [facility] [address] [phone] Dialysis/Infusion - Selection Complete Service Request Status Selected Specialties Address Phone Number Fax Number [facility] Selected Home Infusion and Injection Services [address] [facility] [address] [phone] Ellie Rahman LMSW *[phone] * Case Mgmt DC Amol - Elsie Hoyos - 09/01/2017 10:27 AM CDT [facility] note: [facility] Wendy *[phone] requesting referral updates to the following facility. [facility] Updates sent, follow up pending. Elsie Hoyos Agency Legal Counsel * Patient Education - Ty Noriega RN - 08/31/2017 10:21 AM CDT Steff Jorge Alberto accepted education and was engaged. she verbalized [...] Date: 08/29/2017 Plan Anticipate pt discharging to [facility], when medically stable. Bret reviewed EMR and met with the team. Interventions ? Support Support: Pt/Family Updates re:POC or DC Plan Bret spoke with pt- she would like a referral sent to [facility]. ? Info or Referral ? Discharge Planning Discharge Planning: Care Home Facility Sw tasked OUTREACH LIAISON to send referral to [facility]. Bret spoke with admissions- they will be [...] SYSTEM Selected Home Health Services [address] [facility] [address] [phone] Dialysis/Infusion - Selection Complete Service Request Status Selected Specialties Address Phone Number Fax Number [facility] Selected Home Infusion and Injection Services [address] [facility] [address] [phone] Ellie Rahman LMSW *[phone] * Case Mgmt DC Plan - Josefina Crawford - 08/29/2017 1:14 PM CDT OUTREACH LIAISON Note Sent an initial placement request via AllScripts to the below SNF facility, per request from [facility] [phone] [facility] [place] [address] Updated SATISH. Josefina Crawford Agency Legal Counsel For further assistance, please contact [facility]*[phone] * Case Mgmt DC Plan - Ellie [...] list of SNFs near her home in [place]. Sw will follow up with pt regarding referrals tomorrow. ? Info or Referral ? Discharge Planning Discharge Planning: Care Home Facility ? Medication Needs ? Financial ? [...] CARE SYSTEM Selected Home Health Services [address] [facility] [address] [phone] Dialysis/Infusion - Selection Complete Service Request Status Selected Specialties Address Phone Number Fax Number [facility] Selected Home Infusion and Injection Services [address] [facility] [address] [phone] Ellie Rahman LMSW *[phone] * Care Plan [...] Date: 08/27/2017 Plan [facility] on DC Interventions ? Support ? Info or Referral ? Discharge Planning Discharge Planning: Home Health, Home [facility] spoke with Ortho team this afternoon, plan for tentative DC on Friday. NCM updated [facility]. Per [facility] is $55.94 per fill plus $15 [...] Selected Home Health Services [address] [facility] [address] [phone] Dialysis/Infusion - Selection Complete Service Request Status Selected Specialties Address Phone Number Fax Number [facility] Selected Home Infusion and Injection Services [address] [facility] [address] [phone] JAS Mcmahon, vp scientific affairs Grounds Person 8*2 * Anesthesia Post Op Day 1 [...] Filed in 24 hours) BP: 173/88 (08/27 050) Temp: 36.8 C (98.2 F) (08/27 050) Pulse: 77 (08/27 050) Respirations: 17 PER MINUTE (08/27 508) SpO2: 98 % (08/27 508) O2 Delivery: None (Room Air) (08/27 508) SpO2 Pulse: 75 (08/26 1526) Patient History [...] 72 y.o. female : 1945 MRN# : [id number] DATE OF OPERATION: 08/26/2017 Date: 08/26/2017 Preoperative [...] Disposition: PACU - stable Jamil Madrid Pager [phone] * Operative Report (Direct Entry) - Jamil Madrid - 08/26/2017 11:40 AM CDT Formatting of this note may be different from the original. OPERATIVE REPORT Name: Steff Azul is a 72 y.o. female : 1945 MRN# : [id number] DATE OF OPERATION: 08/26/2017 Surgeon(s) and Role: [...] GRAM STAIN, CULTURE-FUNGAL,OTHER Joao Clemons MD 08/26/2017 7289 B : LEFT ANKLE TISSUE Tissue Ankle CULTURE-ANAEROBIC, CULTURE-WOUND/TISSUE/FLUID (AEROBIC ONLY)W/SENSITIVITY, CULTURE-TB (AFB), GRAM STAIN, CULTURE-FUNGAL,OTHER Joao Clemons MD 08/26/2017 0179 [facility] Pager [phone] * Patient Education - Sydnie Valerio RN [...] provides Home IV antibiotics. -Referrals sent to [facility]. Signed orders and clinicals will need to be faxed at d/c. Interventions ? Support ? Info or Referral ? Discharge Planning -RNCM spoke with and faxed referrals to [facility] [phone] Fax: and [facility] [phone] . ? Medication Needs ? Financial ? [...] selected for the patient. Sotero Burris RN, [facility] Integrated Grounds Person *[phone] * Anesthesia Post Op Day 1 - [...] MD - 08/24/2017 6:01 PM CDT THE [address] [address] PATIENT NAME: STEFF AZUL MR#/PT#: [id number] Page 2 OPERATIVE REPORT DATE OF OPERATION: [...] culture. Cristobal Neely MD AH / MEDQ /[id number] p cc: - Cristobal Neely MD * Critical Results - Adelina Justice RN - 08/24/2017 6:16 AM CDT Critical result or procedure called (document test and value, and read back): Vanc Peak/Trough 34.1 Time MD/B2B OUTSIDE SALES REPRESENTATIVE Notified: 0620 MD/B2B OUTSIDE SALES REPRESENTATIVE Name: Dr. Ashlee PISANO/B2B OUTSIDE SALES REPRESENTATIVE Response/Orders Given: stop [facility], Notify Pharmacy. * Procedures (Immed Post or Bedside) - Jamil Madrid - 08/23/2017 1:51 PM CDT Formatting of this note may be different from the original. Brief Operative Note Name: Steff Azul is a 72 y.o. female : 1945 MRN# : [id number] DATE OF OPERATION: 08/23/2017 Date: 08/23/2017 Preoperative [...] none Drains: None Disposition: PACU - stable [facility] Pager [phone] * ED Notes - Chloé Weaver RN - 08/22/2017 3:08 PM CDT Report given to YASMANI Carvalho. Pt going to 1, room dirty at this time. * ED Notes - Mati Rojo RN - 08/22/2017 2:40 PM CDT 1440: [id number] ready. Please call Chloé for report @ [phone] * ED Notes - Chloé Weaver RN [...] of the RLE. 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 Pt has a female kosher inspector at the bedside. * ED Triage Notes [...] THERAPY TEAM Routine 08/27/2017 12:16 AM CDT ECG-SCAN 08/24/2017 Results for this [...] G/DL [facility] Performing Organization Address [facility]/Zipcode Phone Number [facility] [address] [place] [address] * CREATINE KINASE-CPK (09/02/2017 3:30 AM) Creatine Kinase 26 21 - 215 U/L [facility] Performing Organization Address City/[facility] Phone Number [facility] [address] [place] [address] * BASIC METABOLIC PANEL (09/02/2017 3:30 AM) [...] for questions. Specimen Blood Performing Organization Address City/[facility]/Zipcode Phone Number MAIN LAB [address] [place] [address] * CBC AND DIFF (09/02/2017 3:30 AM) [...] MAIN LAB Specimen Blood Performing Organization Address City/[facility]/Zipcode Phone Number MAIN LAB [address] [place] [address] * C DIFFICILE BY PCR (09/01/2017 2:50 PM) Battery Name C DIFFICILE PCR MAIN LAB Specimen Description FECES MAIN LAB Special Requests NONE MAIN LAB C. Difficile Toxin B PCR NEGATIVE-wait 7 days to repeat MAIN LAB test Report Status FINAL MAIN LAB 09/01/2017 Specimen Feces Performing Organization Address City/[facility]/Zipcode Phone Number MAIN LAB [address] [place] [phone] * BNP (B-TYPE NATRIURETIC PEPTI) (09/01/2017 12:35 PM) B Type Natriuretic 204.0 (H) 0 - 100 PG/ML MAIN LAB Peptide Specimen Blood Performing Organization Address [facility] Phone Number MAIN LAB [address] [place] [address] * BASIC METABOLIC PANEL (09/01/2017 3:50 AM) Sodium 135 (L) 137 - 147 MMOL/L MAIN LAB Potassium 4.0 3.5 - 5.1 MMOL/L MAIN LAB Chloride 99 98 - 110 MMOL/L [facility] CO2 27 21 - 30 MMOL/L [facility] Anion Gap 9 3 - 12 MAIN LAB Glucose 117 (H) 70 - 100 MG/DL MAIN LAB Blood Urea Nitrogen 35 (H) 7 - 25 MG/DL MAIN LAB Creatinine 2.14 (H) 0.4 - 1.00 MG/DL [facility] Calcium 9.4 8.5 - 10.6 MG/DL MAIN LAB eGFR Non 23 (L) >60 mL/min MAIN LAB Comment: The eGFR is not validated for use in drug dosing adjustments.Continue to use estimated creatinine clearance per dosing reference text.Please contact the Clinical Pharmacist for questions. eGFR 28 (L) >60 mL/min MAIN LAB Comment: The eGFR is not validated for use in drug dosing adjustments.Continue to use estimated creatinine clearance per dosing reference text.Please contact the Clinical Pharmacist for questions. Specimen Blood Performing Organization Address City/[facility]/Zipcode Phone Number [facility] [address] [place] [phone] * CBC AND DIFF (09/01/2017 3:50 AM) White Blood Cells 12.3 (H) 4.5 - 11.0 K/UL [facility] RBC 3.52 (L) 4.0 [...] Blood Performing Organization Address City/State/Zipcode Phone Number [facility] [address] [place] [address] * BASIC METABOLIC PANEL (08/31/2017 3:30 AM) [...] City/State/Zipcode Phone Number [facility] [address] [place] [phone] * CBC AND DIFF (08/31/2017 3:30 AM) [...] MAIN LAB Specimen Blood Performing Organization Address City/[facility]/Zipcode Phone Number [facility] [address] [place] [address] * CHEST SINGLE VIEW (08/30/2017 10:27 AM) [...] MAIN LAB Specimen Blood Performing Organization Address City/[facility]/Zipcode Phone Number MAIN LAB [address] [place] [phone] * BASIC METABOLIC PANEL (08/30/2017 3:50 AM) [...] for questions. Specimen Blood Performing Organization Address City/[facility]/Zipcode Phone Number MAIN LAB [address] [place] [phone] * CBC AND DIFF (08/29/2017 4:30 AM) [...] MAIN LAB Specimen Blood Performing Organization Address City/[facility] Phone Number [facility] [address] [place] [address] * BASIC METABOLIC PANEL (08/29/2017 4:30 AM) [...] for questions. Specimen Blood Performing Organization Address City/[facility] Phone Number [facility] [address] [place] [address] * METASTATIC SKELETAL SURVEY (08/28/2017 9:48 AM) [...] on 08/28/2017 10:06 AM. Performing Organization Address [facility]/[place] Phone Number [facility] RAD RESULTS * ABDOMEN [...] on 08/28/2017 10:05 AM. Performing Organization Address [facility]/[place] Phone Number [facility] RAD RESULTS * CHEST [...] on 08/28/2017 10:11 AM. Performing Organization Address City/[facility] Phone Number [facility] RES[facility] * MANUAL [...] NORMAL [facility] Performing Organization Address [facility]ode Phone Number [facility] [address] [place] [address] * CREATINE KINASE-CPK (08/28/2017 3:04 AM) Creatine Kinase 34 21 - 215 U/L [facility] Performing Organization Address City/[facility] Phone Number [facility] [address] [place] [address] * CBC (08/28/2017 3:04 AM) White Blood [...] MAIN LAB Specimen Blood Performing Organization Address [facility] Phone Number [facility] [address] [place] [address] * BASIC METABOLIC PANEL (08/28/2017 3:04 AM) [...] for questions. Specimen Blood Performing Organization Address City/[facility]/Zipcode Phone Number [facility] [address] [place] [address] * CULTURE-URINE W/SENSITIVITY (08/27/2017 3:59 PM) Battery Name URINE CULTURE [facility] Specimen Description URINE [facility] Special Requests NONE [facility] Culture NO GROWTH [facility] Report Status FINAL [facility] 08/28/2017 Specimen Urine Performing Organization Address [facility]/Zipcode Phone Number [facility] [address] [place] [address] * UA REFLEX CULTURE LABEL (08/27/2017 3:59 PM) Reflex Culture LAB LABEL [facility] Specimen Urine Performing Organization Address [facility] Phone Number MAIN LAB [address] [place] [address] * URINALYSIS MICROSCOPIC REFLEX TO CULTURE (08/27/2017 [...] Organization Address [facility] Phone Number [facility] [address] [place] [address] * URINALYSIS DIPSTICK REFLEX TO CULTURE (08/27/2017 3:59 PM) Color,UA YELLOW [facility] Turbidity,UA CLEAR CLEAR-CLEAR [facility] Specific [place]-Urine 1.004 1.003 - 1.035 [facility] [...] Address City/State/Zipcode Phone Number [facility] [address] [place] [address] * CHEST SINGLE VIEW (08/27/2017 2:47 PM) [...] may represent edema and/or pneumonia. Approved by Yuyr Siddiqui M.D. on 08/27/2017 3:14 PM By my electronic signature, I attest that I have personally reviewed the images for this examination and formulated the interpretations and opinions expressed in this report Finalized by Cassidy Paula M.D. on 08/27/2017 3:15 PM. Dictated by Yury Siddiqui M.D. on 08/27/2017 2:58 PM. Performing Organization Address [facility] Phone Number RAD RESULTS * IMMUNOGLOBULINS-IGA,IGG,IGM (08/27/2017 12:07 PM) IgG 913 762 - 1,488 MG/DL [facility] IgA 187 70 - 390 MG/DL [facility] IgM 131 38 - 328 MG/DL [facility] Specimen Blood Performing Organization Address [facility] Phone Number MAIN LAB [address] [place] [address] * BASIC METABOLIC PANEL (08/27/2017 3:43 AM) [...] for questions. Specimen Blood Performing Organization Address [facility] Phone Number [facility] [address] [place] [address] * CBC (08/27/2017 3:43 AM) White Blood [...] MAIN LAB Specimen Blood Performing Organization Address [facility] Phone Number MAIN LAB [address] [place] [address] * URINE COLLECTION (08/26/2017 3:52 PM) Collection Period, Urine 24.0 MAIN LAB Volume, Urine 1,530 MLS MAIN LAB Performing Organization Address [facility] Phone Number MAIN LAB [address] [place] [address] * IMMUNOFIXATION URINE 24 HOUR (08/26/2017 3:52 PM) Immuno Fix-URINE FREE KAPPA LIGHT CHAIN [facility] Pathologist Signature INTERPRETED BY SELENE DIANE M.D. [facility] By the PATH SIGNATURE ABOVE, I attest that I have personally formulated the final interpretation expressed in this report and that the above diagnosis is based upon my examination of the slides and/or other material indicated in this report. Specimen Urine - Urine Performing Organization Address [facility]ode Phone Number [facility] [address] [place] [address] * UA REFLEX CULTURE LABEL (08/26/2017 3:51 PM) UA Reflex Culture LAB LABEL MAIN LAB Specimen Urine Performing Organization Address [facility]/[place] Phone Number [facility] [address] [place] [address] * MICROALB/CR RATIO-URINE RANDOM (08/26/2017 3:51 PM) Microalbumin, Random 77.2 (H) <19 MCG/ML MAIN LAB Creatinine, Random 53 MG/DL MAIN LAB Microalbumin/CR ratio 145.66 (H)Comment: NOTE NEW <30 ug/mg [facility] Urine REFERENCE RANGES Specimen Urine - Urine Performing Organization Address [facility] Phone Number MAIN LAB [address] [place] [address] * PROTEIN/CR RATIO,UR RAN (08/26/2017 3:51 PM) Protein, Random 21 MG/DL [facility] Creatinine, Random 53 MG/DL [facility] Protein/CR ratio 0.4 [facility] Specimen Urine - Urine Performing Organization Address [facility]/Zipcode Phone Number [facility] [address] [place] [address] * URINALYSIS MICROSCOPIC REFLEX TO CULTURE (08/26/2017 [...] Organization Address [facility] Phone Number [facility] [address] [place] [address] * URINALYSIS DIPSTICK REFLEX TO CULTURE (08/26/2017 3:51 PM) Color,UA YELLOW [facility] Turbidity,UA CLEAR CLEAR-CLEAR [facility] Specific [place]-Urine 1.005 1.003 - 1.035 [facility] [...] Organization Address [facility] Phone Number [facility] [address] [place] [address] * GRAM STAIN (08/26/2017 12:09 PM) Battery Name GRAM STAIN [facility] Specimen Description TISSUE [facility] LEFT ANKLE Special Requests NONE [facility] Gram Stain RARE [facility] NEUTROPHILS NO ORGANISMS SEEN Report Status FINAL [facility] 08/26/2017 Specimen Tissue - Tissue Performing Organization Address City/[facility]/Zipcode Phone Number [facility] [address] [place] [address] * CULTURE-WOUND/TISSUE/FLUID(AEROBIC ONLY)W/SENSITIVITY (08/26/2017 12:09 PM) Battery Name ROUTINE CULTURE MAIN LAB Specimen Description TISSUE [facility] LEFT ANKLE Special Requests NONE [facility] Direct Gram Stain RARE [facility] NEUTROPHILS NO ORGANISMS SEEN Culture 1 [place] MAIN LAB STAPHYLOCOCCUS AUREUS See previous susceptibility Report Status FINAL MAIN LAB 08/29/2017 Specimen Tissue - Tissue Performing Organization Address City/[facility] Phone Number [facility] [address] [place] [address] * CULTURE-ANAEROBIC (08/26/2017 12:09 PM) Battery Name ANAEROBE CULTURE MAIN LAB Specimen Description TISSUE MAIN LAB LEFT ANKLE Special Requests NONE MAIN LAB Culture NO ANAEROBES ISOLATED MAIN LAB Report Status FINAL MAIN LAB 09/01/2017 Specimen Tissue - Tissue Performing Organization Address [facility] Cent[facility] Phone Number MAIN LAB [address] [place] [address] * CULTURE-WOUND/TISSUE/FLUID(AEROBIC ONLY)W/SENSITIVITY (08/26/2017 12:07 PM) Battery Name ROUTINE CULTURE MAIN LAB Specimen Description HARDWARE SPECIMEN [facility] LEFT ANKLE POLY Special Requests NONE MAIN LAB Culture 1 [place] MAIN LAB STAPHYLOCOCCUS AUREUS (A) Report Status FINAL MAIN LAB 08/29/2017 Organism ID 1 [place] MAIN LAB STAPHYLOCOCCUS AUREUS Specimen Hardware - [...] (MCG/ML) aureus INTERPRETATION INTERPRETATION Performing Organization Address [facility] Phone Number MAIN LAB [address] [place] [address] * CULTURE-ANAEROBIC (08/26/2017 12:07 PM) Battery Name ANAEROBE CULTURE MAIN LAB Specimen Description HARDWARE SPECIMEN MAIN LAB LEFT ANKLE POLY Special Requests NONE MAIN LAB Culture NO ANAEROBES ISOLATED MAIN LAB Report Status FINAL MAIN LAB 09/01/2017 Specimen Hardware - Hardware Specimen Performing Organization Address City/State/Zipcode Phone Number [facility] [address] [place] [address] * ABDOMEN AP ONLY (08/26/2017 9:06 AM) [...] M.D. on 08/26/2017 9:48 AM. Dictated by nAgel Owens M.D. on 08/26/2017 9:46 AM. Performing Organization Address City/State/Zipcode Phone Number [facility] RAD RESULTS * IMMUNOFIXATION, SERUM (IFES) (08/26/2017 4:00 AM) Immuno Fix-Serum IGG [facility] PARAPROTEIN MAIN LAB Pathologist Signature INTERPRETED BY SELENE DIANE M.D. [facility] By the PATH SIGNATURE ABOVE, I attest that I have personally formulated the final interpretation expressed in this report and that the above diagnosis is based upon my examination of the slides and/or other material indicated in this report. Performing Organization Address City/State/Zipcode Phone Number [facility] [address] [place] [address] * KAPPA/LAMBDA FREE LIGHT CHAINS (08/26/2017 4:00 AM) [place], FLC 7.04 (H) 0.33 - 1.94 MG/DL [facility] Comment: Freelite results should always be interpreted in conjunction with other laboratory tests and clinical evidence.The possibility of Antigen Excess exists and can cause Immunoassays to under estimate very high concentrations of antigen. Any discordant results should be discussed with Dr. Mora. [place], FLC 2.44 0.57 - 2.63 MG/DL [facility] [place]/Lambda FLC 2.89 (H) 0.26 - 1.65 [facility] Specimen Blood Performing Organization Address [facility] Phone Number [facility] [address] [place] [address] * TOTAL PROTEIN SEP (08/26/2017 4:00 AM) Total Protein 5.3 (L) 6.0 - 8.0 g/dL [facility] Specimen Blood Performing Organization Address [facility] Phone Number [facility] [address] [place] [address] * ELECTROPHORESIS-SERUM PROTEIN (08/26/2017 4:00 AM) Total Protein-SEP 5.3 (L) 6.0 - 8.0 G/DL [facility] Albumin % 47.1 (L) 48 - 68 % [facility] Alpha 1 % 8.2 (H) 2 - 6 % [facility] MAIN [facility] Alpha 2 % 16.8 (H) 5 - 15 % [facility] MAIN [facility] Beta %,Serum 12.6 9 - 17 % MAIN LAB Gamma % 15.3 9 - 21 % [facility] Paraprotein 0.17 G/DL [facility] Interpretation - SEP SPIKE, PROBABLY MONOCLONAL, IN [facility] BETA/GAMMA REGION(S) Pathologist Signature INTERPRETED BY SELENE DIANE M.D. [facility] By the PATH SIGNATURE ABOVE, I attest that I have personally formulated the final interpretation expressed in this report and that the above diagnosis is based upon my examination of the slides and/or other material indicated in this report. Specimen Blood Performing Organization Address [facility] Centercode Phone Number [facility] [address] [place] [address] * BASIC METABOLIC PANEL (08/26/2017 4:00 AM) [...] 3.14 (H) 0.4 - 1.00 MG/DL [facility] MAIN LAB Calcium 8.7 8.5 - 10.6 MG/DL [facility] MAIN LAB eGFR Non 15 (L) >60 [...] for questions. Specimen Blood Performing Organization Address City/[facility]/Zipcode Phone Number [facility] [address] [place] [address] * CBC (08/26/2017 4:00 AM) White Blood Cells 6.8 4.5 - 11.0 K/UL [facility] RBC 3.35 (L) 4.0 - 5.0 M/UL [facility] Hemoglobin 10.0 (L) 12.0 - 15.0 GM/DL [facility] Hematocrit 30.4 (L) 36 - 45 % MAIN LAB MCV 90.8 80 - 100 FL MAIN LAB MCH 29.9 26 - 34 PG [facility] MCHC 33.0 32.0 - 36.0 G/DL [facility] RDW 12.8 11 - 15 % MAIN LAB Platelet Count 286 150 - 400 K/UL [facility] MPV 7.5 7 - 11 FL [facility] Specimen Blood Performing Organization Address City/State/Zipcode Phone Number [facility] [address] [place] [address] * BLOOD TYPE CONFIRMATION - ORDER ONLY IF REQUESTED BY LAB (08/25/2017 7:20 PM) ABO/RH(D) A NEG MAIN LAB Specimen Blood Performing Organization Address City/[facility]/Zipcode Phone Number MAIN LAB [address] [place] [address] * C DIFFICILE BY PCR (08/25/2017 6:30 PM) Battery Name C DIFFICILE PCR MAIN LAB Specimen Description FECES MAIN LAB Special Requests NONE MAIN LAB C. Difficile Toxin B PCR NEGATIVE-wait 7 days to repeat MAIN LAB test Report Status FINAL MAIN LAB 08/26/2017 Specimen Feces Performing Organization Address City/[facility]ode Phone Number MAIN LAB [address] [place] [address] * TYPE & CROSSMATCH (08/25/2017 5:24 PM) Units Ordered 2 MAIN LAB Crossmatch Expires 08/28/2017 MAIN LAB Record Check 2ND TYPE REQUIRED MAIN LAB ABO/RH(D) A NEG MAIN LAB Antibody Screen NEG MAIN LAB Electronic Crossmatch YES MAIN LAB Specimen Blood Performing Organization Address [facility] Centercode Phone Number MAIN LAB [address] [place] [address] * CBC AND DIFF (08/25/2017 5:22 PM) [...] MAIN LAB Specimen Blood Performing Organization Address City/[facility] Phone Number [facility] [address] [place] [address] * US RENAL BLADDER LTD (08/25/2017 4:16 [...] on 08/25/2017 4:15 PM. Performing Organization Address City/[facility] Phone Number [facility] RAD RESULTS * IRON + BINDING CAPACITY + %SAT+ FERRITIN (08/25/2017 4:09 AM) Iron 21 (L) 50 - 160 MCG/DL [facility] MAIN LAB Iron Binding-TIBC 279 270 - 380 MCG/DL [facility] MAIN [facility] % Saturation 8 (L) 28 - 42 % [facility] MAIN [facility] Ferritin 88 10 - 200 NG/ML [facility] MAIN [facility] Performing Organization Address [facility] Centercode Phone Number [facility] MA[facility] [address] [place] [address] * VANCOMYCIN RANDOM (08/25/2017 4:09 AM) Vancomycin Random 25.1 MCG/ML [facility] MAIN [facility] Specimen Blood Performing Organization Address [facility] Centercode Phone Number [facility] MA[facility] [address] [place] [address] * BASIC METABOLIC PANEL (08/25/2017 4:09 AM) [...] for questions. Specimen Blood Performing Organization Address [facility] Centercode Phone Number [facility] MAIN [facility] [address] [place] [address] * CBC (08/25/2017 4:09 AM) White Blood [...] MAIN LAB Specimen Blood Performing Organization Address City/[facility] Centercode Phone Number [facility] [address] [place] [address] * ECG-SCAN (08/24/2017 7:40 PM) Narrative Performed At Ordered by an unspecified provider. * VANCOMYCIN TROUGH (08/24/2017 3:47 AM) Vancomycin Trough 34.1 (HH) 10.0 - 20.0 MCG/ML MAIN LAB Comment: Critical Value VANC_T: Called To: ADELINA Esposito at: 06:09:34 by: ALIRIO Read back by: ADELINA Esposito Performing Organization Address [facility]/[place] Phone Number [facility] [address] [place] [address] * BASIC METABOLIC PANEL (08/24/2017 3:47 AM) Sodium 136 (L) 137 - 147 MMOL/L MAIN LAB Potassium 4.0 3.5 - 5.1 MMOL/L MAIN LAB Chloride 98 98 - 110 MMOL/L MAIN LAB CO2 31 (H) 21 - 30 MMOL/L [facility] MAIN [facility] Anion Gap 7 3 - 12 MAIN LAB Glucose 138 (H) 70 - 100 MG/DL MAIN LAB Blood Urea Nitrogen 20 7 [...] for questions. eGFR 37 (L) >60 mL/min MAIN LAB Comment: The eGFR is not validated for use in drug dosing adjustments.Continue to use estimated creatinine clearance per dosing reference text.Please contact the Clinical Pharmacist for questions. Specimen Blood Performing Organization Address City/[facility]/Zipcode Phone Number [facility] [address] [place] [address] * CBC (08/24/2017 3:47 AM) White Blood Cells 9.1 4.5 - 11.0 K/UL MAIN LAB RBC 3.77 (L) 4.0 - [...] LAB MPV 7.4 7 - 11 FL [facility] MAIN LAB Specimen Blood Performing Organization Address [facility] Centercode Phone Number [facility] MAIN [facility] [address] [place] [address] * CULTURE-FUNGAL,OTHER (08/23/2017 12:42 PM) Battery Name FUNGUS CULTURE [facility] MAIN LAB Specimen Description TISSUE ANKLE [facility] MAIN LAB RIGHT Special Requests NONE [facility] MAIN LAB Culture NO GROWTH OF FUNGUS AT 4 WEEKS [facility] MAIN LAB Report Status FINAL [facility] MAIN LAB 09/22/2017 Specimen Tissue - Ankle Performing Organization Address [facility] Centercode Phone Number [facility] MA[facility] [address] [place] [address] * GRAM STAIN (08/23/2017 12:42 PM) Battery Name GRAM STAIN [facility] MAIN LAB Specimen Description TISSUE ANKLE [facility] MAIN LAB RIGHT Special Requests NONE [facility] MAIN LAB Gram Stain MODERATE [facility] MAIN LAB NEUTROPHILS FEW INTRACELLULAR GRAM POSITIVE COCCI RESEMBLING STAPHYLOCOCCI Report Status FINAL [facility] MAIN LAB 08/23/2017 Specimen Tissue - Ankle Performing Organization Address [facility]ercode Phone Number [facility] MAIN [facility] [address] [place] [address] * CULTURE-WOUND/TISSUE/FLUID(AEROBIC ONLY)W/SENSITIVITY (08/23/2017 12:42 PM) Battery [...] Specimen Tissue - Ankle Performing Organization Address [facility] Centercode Phone Number MAIN LAB [address] [place] [phone] * CULTURE-ANAEROBIC (08/23/2017 12:42 PM) Battery Name ANAEROBE CULTURE MAIN LAB Specimen Description TISSUE ANKLE [facility] MAIN LAB RIGHT Special Requests NONE [facility] MAIN LAB Culture NO ANAEROBES ISOLATED [facility] MAIN LAB Report Status FINAL [facility] MAIN LAB 08/28/2017 Specimen Tissue - Ankle Performing Organization Address [facility]/Zipcode Phone Number MAIN LAB [address] [place] [address] * BASIC METABOLIC PANEL (08/23/2017 3:43 AM) [...] for questions. Specimen Blood Performing Organization Address City/[facility] Centercode Phone Number MAIN LAB [address] [place] [address] * CBC (08/23/2017 3:43 AM) White Blood [...] LAB MCHC 32.4 32.0 - 36.0 G/DL MAIN LAB RDW 13.3 11 - 15 % MAIN LAB Platelet Count 269 150 - 400 K/UL [facility] MAIN LAB MPV 7.8 7 - 11 FL [facility] MAIN LAB Specimen Blood Performing Organization Address City/[facility] Centercode Phone Number MAIN LAB [address] [place] [address] * CHEST SINGLE VIEW (08/22/2017 6:49 PM) [...] AM. Performing Organization Address City/State/Zipcode Phone Number [employer] RAD RESULTS * GRAM STAIN (08/22/2017 1:07 PM) Battery Name GRAM STAIN [facility] MAIN LAB Specimen Description SWAB MAIN LAB RIGHT FOOT INCISION MEDIAL Special Requests NONE MAIN LAB Gram Stain FEW MAIN LAB NEUTROPHILS FEW RBC'S FEW GRAM POSITIVE COCCI RESEMBLING STAPHYLOCOCCI Report Status FINAL [facility] MAIN LAB 08/22/2017 Specimen Swab Performing Organization Address City/[facility]/Zipcode Phone Number [facility] MAIN [facility] [address] [place] [address] * GRAM STAIN (08/22/2017 1:07 PM) Battery Name GRAM STAIN [facility] MAIN LAB Specimen Description SYNOVIAL FLUID [facility] MAIN LAB RIGHT ANKLE Special Requests NONE [facility] MAIN LAB Gram Stain MANY [facility] MAIN LAB RBC'S RARE NEUTROPHILS NO ORGANISMS SEEN Report Status FINAL [facility] MAIN LAB 08/22/2017 Specimen Synovial Fluid Performing Organization Address [facility]/[place] Phone Number [facility] MAIN [facility] [address] [place] [address] * GRAM STAIN (08/22/2017 1:07 PM) Battery Name GRAM STAIN [facility] MAIN LAB Specimen Description SWAB [facility] MAIN LAB RIGHT FOOT INCISION DORSAL Special Requests NONE [facility] MAIN LAB Gram Stain FEW [facility] MAIN LAB NEUTROPHILS FEW RBC'S RARE GRAM POSITIVE COCCI RESEMBLING STAPHYLOCOCCI Report Status FINAL [facility] MAIN LAB 08/22/2017 Specimen Swab Performing Organization Address [facility]/[place] Phone Number [facility] MAIN [facility] [address] [place] [address] * CULTURE-WOUND/TISSUE/FLUID(AEROBIC ONLY)W/SENSITIVITY (08/22/2017 1:07 PM) Battery [...] LAB 08/24/2017 Specimen Swab Performing Organization Address [facility]/[place] Phone Number [facility] MAIN [facility] [address] [place] [address] * CULTURE-WOUND/TISSUE/FLUID(AEROBIC ONLY)W/SENSITIVITY (08/22/2017 1:07 PM) Battery [...] staphylococcus aureus INTERPRETATION INTERPRETATION Performing Organization Address [facility]/[place] Phone Number MAIN LAB [address] [place] [address] * CULTURE-FUNGAL,OTHER (08/22/2017 1:07 PM) Battery Name FUNGUS CULTURE MAIN LAB Specimen Description SYNOVIAL FLUID MAIN LAB RIGHT ANKLE Special Requests NONE MAIN LAB Culture NO GROWTH OF FUNGUS AT 4 WEEKS MAIN LAB Report Status FINAL MAIN LAB 09/22/2017 Specimen Synovial Fluid Performing Organization Address [facility]/[place] Phone Number MAIN LAB [address] [place] [address] * CULTURE-WOUND/TISSUE/FLUID(AEROBIC ONLY)W/SENSITIVITY (08/22/2017 1:07 PM) Battery [facility] ROUTINE CULTURE MAIN LAB Specimen Description SYNOVIAL FLUID MAIN LAB RIGHT ANKLE Special Requests NONE MAIN LAB Direct Gram Stain MANY MAIN LAB RBC'S RARE NEUTROPHILS NO ORGANISMS SEEN Culture NO GROWTH 5 DAYS [facility] MAIN LAB Report Status FINAL MAIN LAB 08/27/2017 Specimen Synovial Fluid Performing Organization Address [facility]/[place] Phone Number MAIN LAB [address] [place] [address] * CRYSTAL ANALYSIS-SYNOVIAL FLUID (08/22/2017 1:02 PM) [...] fluid - Synovial Fluid Performing Organization Address [facility]/Zipcode Phone Number [facility] [address] [place] [address] * CELL COUNT W/DIFF-SYN FLUID (08/22/2017 1:02 [...] fluid - Synovial Fluid Performing Organization Address City/[facility]ercode Phone Number [facility] [address] [place] [address] * ANKLE MIN 3 VIEWS RIGHT (08/22/2017 [...] on 08/22/2017 1:15 PM. Performing Organization Address [facility] Phone Number RAD RESULTS * POC LACTATE (08/22/2017 11:17 AM) LACTIC ACID POC 0.8 0.5 - 2.0 MMOL/L MAIN LAB Performing Organization Address [facility] Phone Number MAIN LAB [address] [place] [address] * C REACTIVE PROTEIN (CRP) (08/22/2017 11:15 AM) C-Reactive Protein 7.87 (H) <1.0 MG/DL [facility] MAIN [facility] Specimen Blood Performing Organization Address [facility]/[place] Phone Number MAIN LAB [address] [place] [address] * SED RATE (08/22/2017 11:15 AM) Sed Rate -ESR 60 (H) 0 - 30 MM/HR [facility] MAIN [facility] Specimen Blood Performing Organization Address [facility]/[place] Phone Number MAIN LAB [address] [place] [address] * COMPREHENSIVE METABOLIC PANEL (08/22/2017 11:15 AM) [...] Address City/State/Zipcode Phone Number [facility] MAIN [facility] [address] [place] [address] * CBC AND DIFF (08/22/2017 11:15 AM) [...] Organization Address City/State/Zipcode Phone Number MAIN LAB [address] [place] [address] in this encounter Visit Diagnoses Diagnosis Wound [...] 325 mg, Oral, DAILY, First dose on Fri: CDT 08/22/17 at 1600, Until Discontinued Given [...] Fri09/02/17 at 1503, Pain Injectable, Begin once PNC/EAR MUFF ASSEMBLER has been discontinued. furosemide (LASIX) tablet 40 [...] HOURS PRN, Starting 08/25/17 at 1123, Until Tu09/02/17 at 1503, Nausea/Vomiting Injectable, Nausea/Vomiting not relieved [...] drop, Both Eyes, DAILY, First dose on 08/22/17 at 1600, Until Discontinued Given 09/01/2017 1 drop 08:23 CDT Given 09/02/2017 1 drop 07:52 CDT vancomycin (VANCOCIN) injection Given 08/23/2017 1 g Ankle, Right INTRA-PROCEDURE MED, Starting Sat 13:10 CDT 08/23/17 at 1248, Until 08/23/17 at 1532, Intra-op in this encounter
--- OUTSIDE RECORDS SUMMARY | 2017-09-23 16:44 | XMS REPORT | Encounter Summary ---
Author Author [facility] Organization [facility] Address Unknown Phone Unavailable Care Team Providers Care Weatherization Crew Leader Name Role Phone Joao Mccabe MD Unavailable Vadim Waggoner MD PCP Reason for Visit * Reason Comments Post-op Encounter Details Date Type Department Care Team Description 07/24/2017 Office Visit [facility] Joao Mccabe MD Ankle arthritis (Primary Physicians - Orthopedics [address] Dx) Orthopedics and Medical [place] [address] [place] [address] [address] [facility] [phone] [place] [address] Social History Tobacco Use Types Packs/Day Years Used Date Never Smoker Smokeless Tobacco: Never Used Alcohol Use Drinks/Week oz/Week Comments No Sex Assigned at Date Recorded Not on file as of this encounter Functional Status Functional Status Response Date of Assessment Does the patient have a hearing impairment: No 07/19/2017 Does the patient have a visual impairment: No 07/19/2017 Does the patient have impaired ambulation: Yes 07/19/2017 Does the patient have an activity of daily living No 07/19/2017 (ADL) impairment: Does the patient have an instrumental activity of Yes 07/19/2017 daily living (IADL) impairment: Cognitive Status Response Date of Assessment Does the patient have a cognitive impairment: No 07/19/2017 as of this encounter Progress Notes * Joao Mccabe MD - 07/24/2017 12:15 PM CDT She is here today for initial postoperative follow up s/p right ankle . She is doing well. On exam her wounds look good. The patient is progressing on the expected postoperative course. She will go into an unna paste boot and a short- leg cast. She will remain nonweight bearing. I have also had a therapist work with her on gait training with crutches on stairs. I will see her back in two weeks. In the presence of Joao Mccabe MD, I have taken down these notes, Mario Maravilla. 07/24/2017 1:04 PM in this encounter Plan of Treatment Date Type Specialty Care Team Description 09/16/2017 Procedure Pass Orthopedic Surgery as of this encounter Visit Diagnoses Diagnosis Ankle arthritis - Primary Unspecified arthropathy, ankle and foot
--- OUTSIDE RECORDS SUMMARY | 2017-09-23 16:44 | XMS REPORT | Encounter Summary ---
Author Author [facility] Organization [facility] Address Unknown Phone Unavailable Care Team Providers Care Ocular Pathologist Name Role Phone Joao Mccabe MD Unavailable Vadim Waggoner MD PCP Reason for Visit * Reason Comments Follow-up Phone Call Encounter Details Date Type Department Care Team Description 07/20/2017 Telephone Anesthesia Nicholas Brandt MD Follow-up Phone Call [address] [facility] [id number] [place] [address] [place] [address] [place] [address] [phone] Social History Tobacco Use Types Packs/Day Years [...] impairment: No 07/19/2017 as of this encounter Miscellaneous Notes * Telephone Encounter - Nicholas Brandt MD - 07/20/2017 1:09 PM CDT Department of Anesthesiology Progress Note for Home Peripheral Nerve Catheter Infusions Name: Steff Azul is a 72 y.o. female. :1945 Operative Procedure: ARTHROPLASTY REPLACEMENT TOTAL ANKLE (PROPHECY #[id number]) ( Right) REMOVAL HARDWARE -DEEP (Right) REPAIR TALONAVICULAR JOINT NONUNION (Right) Surgeon: Estelle Surgery Date: 07/18/17 Continous catheter: Right and Popliteal PNC Day# 2 Patient or patient's caregiver contacted by phone, Symptoms of local anesthetic toxicity or infection denied, Appropriate sensory/motor function of affected extremity acknowledged, Surgical pain under control, Patient wishes to continue with infusion therapy and All questions answered Notes: in this encounter Plan of Treatment Date Type Specialty Care Team Description 09/16/2017 Procedure Pass Orthopedic Surgery as of this encounter Visit Diagnoses Not on filein this encounter
--- OUTSIDE RECORDS SUMMARY | 2017-09-23 16:44 | XMS REPORT | Encounter Summary ---
Author Author [facility] Organization [facility] Address Unknown Phone Unavailable Care Team Providers Care Lidar Analyst Name Role Phone Joao Mccabe MD Unavailable Vadim Waggoner MD PCP Reason for Visit * Reason Comments Follow-up Phone Call Encounter Details Date Type Department Care Team Description 07/21/2017 Telephone Anesthesia Saritha Chambers MD Follow-up Phone Call [address] [facility] [place] [address] [address] [place] [address] Social History Tobacco Use Types Packs/Day Years [...] encounter Miscellaneous Notes * Telephone Encounter - Saritha Chambers MD - 07/21/2017 12:16 PM CDT Department of Anesthesiology Progress Note for Home Peripheral Nerve Catheter Infusions Name: Steff Azul is a 72 y.o. female. :1945 Operative Procedure: Right ankle arthroplasty Surgeon: Estelle Surgery Date: 07/18/17 Continous catheter: Popliteal PNC Day# n/a Patient or patient's caregiver contacted by phone, Symptoms of local anesthetic toxicity or infection denied, Appropriate sensory/motor function of affected extremity acknowledged, Surgical pain under control and All questions answered Notes: Pt reports catheter fell out accidentally yesterday shortly after phone call. Reports pain is adequately controlled but having some nausea from oxycodone. in this encounter Plan of Treatment Date Type Specialty Care Team Description 09/16/2017 Procedure Pass Orthopedic Surgery as of this encounter Visit Diagnoses Not on filein this encounter
--- OUTSIDE RECORDS SUMMARY | 2017-09-23 16:44 | XMS REPORT | Encounter Summary ---
Author Author [facility] Organization [facility] Address Unknown Phone Unavailable Care Team Providers Care Induction Heat Treater Name Role Phone Joao Mccabe MD Unavailable Vadim Waggoner MD PCP Encounter Details Date Type Department Care Team Description 07/21/2017 Orders Only [facility] Joao Mccabe MD Physicians - Orthopedics [address] [facility] Orthopedics and Medical [place] [address] [place] [phone] [address] [facility] [phone] [place] [address] Social History Tobacco Use Types [...] as of this encounter Progress Notes * Daja Barrios, RN - 07/21/2017 1:24 PM CDT Ms. Azul reports feeling nausea and is attributing this feeling to oxycodone. Per Dr. Mccabe, contreras to call out Zofran 4mg q 8 hrs. Rx e-scripted to [facility] per pt's request. in this encounter Plan of Treatment Date Type Specialty Care Team Description 09/16/2017 Procedure Pass Orthopedic Surgery as of this encounter Visit Diagnoses Not on filein this encounter
--- OUTSIDE RECORDS SUMMARY | 2017-09-23 16:44 | XMS REPORT | Encounter Summary ---
Author Author [facility] Organization [facility] Address Unknown Phone Unavailable Care Team Providers Care Process Improvement Engineer Name Role Phone Joao Mccabe MD Unavailable Vadim Waggoner MD PCP Reason for Visit * Auth/Cert Status Reason Specialty Diagnoses / Referred By Referred To Procedures Contact Contact Diagnoses Wound infection Wound infection Encounter Details Date Type Department Care Team Description 08/23/2017 Anesthesia Main Operating Room Elaina Hamilton SRNA Tamara [facility] [address] [place] [address] Anesthesia Record Procedure Name Responsible Anesthesia Start Time Anesthesia Stop Time Anesthesiologist DEBRIDEMENT LOWER Lisette-Alaina Deyanira, 08/23/17 1216 08/23/17 1352 EXTREMITY, ANKLE ARTRHROTOMY (Right Ankle) Date Time Event Comment 1151 AN Equip Check 2018 1215 Out of Pre Procedure 1216 Anes Start 1216 An Start Data 1216 An Start Data 1216 an stop data 1216 an stop data 1216 In Room 1216 Quick Note Monitor spontaneously disconnected from ehr/multiple attempts to reconnect/attach devices. Pt in the OR at 1216 1217 An Start Data 1218 An Induction The patient was reevaluated immediately before moderate or deep sedation use and before anesthesia induction. 1220 An Intubation 1222 Anesthesia Ready 1224 Antibiotic Given 1234 Proc Start 1235 An Tourn Inflated 1345 An Tourn Deflated 1347 An Extubation 1350 an stop data 1352 Handoff to RN I completed my SBAR handoff to the receiving nurse. Pt appropriately conversant in pacu 1352 An Stop Meds Name Total fentaNYL PF (SUBLIMAZE) injection 100 mcg lidocaine (2%) 200 mg/10mL Injection 80 mg syringe propofol (DIPRIVAN) 200 mg/ 20 mL 120 mg injection (VIAL) phenylephrine (RASHAD-SYNEPHRINE) 0.1 mg/mL 100 mcg injection (SYRINGE) dextran 70/hypromellose (GENTEAL TEARS; 2 drop BION TEARS) ophthalmic solution vancomycin (VANCOCIN) 1,000 mg in D5W 1 g 200mL IVPB (premade) ePHEDrine 50 mg/mL 50 mg in sodium 20 mg chloride PF 0.9% 5 mL IV syringe lactated ringers infusion 775 mL * Name O2 N2O Inspired N2O Sevoflurane Inspired Sevoflurane * No blood administrations on file. Type Details Placement Removal Hemovac 07/18/17; 1618; Right, Lower; Leg; 10 07/18/17 1618 by Marie, 08/23/17 1456 by Sam, Drain FR; 08/23/17; 1456 Laurita Dimas, RN Natali, RN Wounds 07/18/17; 1624; Leg; Surgical Incision; 07/18/17 1624 by Marie, 08/23/17 1456 by Sam, (NOT for 08/23/17; 1456; RUDOLPH ,DERMABOND Laurita Dimas RN Natali, RN Pressure PRINEO, BETADINE SOAKED ADAPTIC, 4X4s, Injuries) SOFTROLL, VIZCARRA ROLL, DILEEP, SPLINT, HANDY WRAP Wounds 08/22/17; Right; Ankle; Surgical 08/22/17 0000 by Maurizio, 1409 by Ronald, (NOT for Incision; 08/23/17; 1409 YASMANI Carvalho, RN Pressure Injuries) Supraglott 08/23/17; 1220; Ventilated by mask (1); 08/23/17 1220 by Van, 08/23/17 1347 by Van, ic Airway LMA; 3; 1 insertion attempt; End-tidal Lesley, PRINTED CIRCUIT BOARDS BEVELER Lesley, PRINTED CIRCUIT BOARDS BEVELER CO2; easy mask easy lma; 08/23/17; 1347 Wounds 08/23/17; 1305; Leg; Surgical Incision; 08/23/17 1305 by 1149 by Sam, (NOT for 08/26/17; 1149; SUTURES, Kwadwo, Grace, BSN Natali, RN Pressure DERMABOND,4X4S,SOFROLL, SPLINT, HANDY Injuries) in this encounter Social History Tobacco Use [...] OR Notes * Anesthesia Postprocedure Evaluation - Sony Sutton MD - 08/23/2017 2:30 PM CDT Post-Anesthesia Evaluation Name: Steff Azul : 1945 Age: 72 y.o. Sex: female Procedure Date: 08/23/2017 Procedure: Procedure(s) with comments: DEBRIDEMENT LOWER EXTREMITY, ANKLE ARTRHROTOMY - CASE LENGTH 2 HOURS Surgeon: Surgeon(s): Cristobal Neely MD Reinhardt, Daniel, MD Grote, Caleb Post-Anesthesia Vitals BP: 154/93 (08/23 1400) Temp: 36.9 C (98.4 F) (08/23 1355) Pulse: 68 (08/23 1400) Respirations: 7 PER MINUTE (08/23 1400) SpO2: 98 % (08/23 1400) O2 Delivery: None (Room Air) (08/23 1399) SpO2 Pulse: 68 (08/23 1399) Post Anesthesia Evaluation Note Evaluation location: Pre/Post Patient participation: recovered; patient participated in evaluation Level of consciousness: alert Pain score: 2 Pain management: adequate Hydration: normovolemia Temperature: 36.0C - 38.4C Airway patency: adequate Regional/Neuraxial: Single injection shot performed Perioperative Events Perioperative events: no Post-op nausea and vomiting: no PONV Postoperative Status Cardiovascular status: hemodynamically stable Respiratory status: spontaneous ventilation Follow-up needed: none Perioperative Events Perioperative Event: No Emergency Case Activation: No Associated attestation - Deyanira Paige MD - 08/23/2017 3:53 PM CDT Formatting of this note may be different from the original. Post-Anesthesia Evaluation Attestation: I reviewed and agree the indicated post- anesthesia care was provided. Staff name: Deyanira Paige MD Date: 08/23/2017 * Anesthesia Preprocedure Evaluation - Deyanira Paige MD - 08/22/2017 4:16 PM CDT Formatting of this note may be different from the original. Anesthesia Pre-Procedure Evaluation Name: Steff Azul : 1945 Age: 72 y.o. Sex: female Procedure Date: 08/23/2017 Procedure: Procedure(s) with comments: DEBRIDEMENT LOWER EXTREMITY - CASE LENGTH 2 HOURS POSSIBLE POLY EXCHANGE RIGHT TOTAL ANKLE Physical Assessment Vital Signs (last filed in past 24 hours): BP: 151/127 (08/22 1500) Temp: 36.8 C (98.2 F) (08/22 1040) Pulse: 77 (08/22 1459) Respirations: 18 PER MINUTE (08/22 1458) SpO2: 95 % (08/22 145) O2 Delivery: None (Room Air) (08/22 1040) Height: 167.6 cm (66") (08/22 1040) Weight: 79.4 kg (175 lb) (08/22 1040) Patient History No Known Allergies Current Medications Medication Directions acetaminophen (TYLENOL) 325 mg tablet Take 325 [...] every 6 hours as needed for Pain. Review of Systems/Medical History Patient summary reviewed Nursing notes reviewed Pertinent labs reviewed PONV Screening: Female gender, Non-smoker and Postoperative opioids No history of anesthetic complications No family history of anesthetic complications Airway - negative 07-18-2017 Previous Grade 1 view Pulmonary Home oxygen use No sleep apnea (Went to sleep study, told her stats drop to low 80s. Wears 2L at night. No issues during the day.) Cardiovascular Recent diagnostic studies: echocardiogram and stress test At OSH- neg per pt and normal EF Exercise tolerance: >4 METS (Prior to injury) Beta Noa therapy: Yes Beta blockers within 24 hours: Yes Hypertension, well controlled GI/Hepatic/Renal No GERD, Neuro/Psych Neuropathy (Numbness around foot since surgery) Musculoskeletal Back pain Arthritis Endocrine/Other - negative Physical Exam Airway Findings Mallampati: I TM distance: >3 FB Neck ROM: full Mouth opening: good Airway patency: adequate Dental Findings: Negative Cardiovascular Findings: Rhythm: regular Rate: normal Pulmonary Findings: Breath sounds clear to auscultation. Abdominal Findings: Not obese Neurological Findings: Normal mental status Diagnostic Tests Hematology: Lab Results Component Value Date HGB 11.5 08/22/2017 HCT 35.1 08/22/2017 PLTCT 286 08/22/2017 WBC 6.8 08/22/2017 NEUT 70 08/22/2017 ANC 4.80 08/22/2017 ALC 1.00 08/22/2017 BENJAMIN 13 08/22/2017 AMC 0.80 08/22/2017 EOSA 2 08/22/2017 ABC 0.00 08/22/2017 MCV 91.7 08/22/2017 MCH 30.0 08/22/2017 MCHC 32.7 08/22/2017 MPV 7.7 08/22/2017 RDW 13.3 08/22/2017 General Chemistry: Lab Results Component Value Date NA 136 08/22/2017 K 4.0 08/22/2017 CL 103 08/22/2017 CO2 26 08/22/2017 GAP 7 08/22/2017 BUN 16 08/22/2017 CR 0.81 08/22/2017 GLU 104 08/22/2017 CA 9.3 08/22/2017 ALBUMIN 3.9 08/22/2017 TOTBILI 0.2 08/22/2017 Coagulation: No results found for: PT, PTT, INR Anesthesia Plan ASA score: 3 Plan: general and regional for postoperative pain Induction method: intravenous NPO status: acceptable Comments: (NPO since 5 pm food, 7 pm liquid) Informed Consent Anesthetic plan and risks discussed with patient. Use of blood products discussed with patient; consented to blood products. Plan discussed with: anesthesiologist, resident and PRINTED CIRCUIT BOARDS BEVELER. in this encounter Plan of Treatment Date Type Specialty Care Team Description 09/16/2017 Procedure Pass Orthopedic Surgery as of this encounter Visit Diagnoses Not on filein this encounter Administered Medications Medication Order MAR Action Action Date Dose Rate Site dextran 70/hypromellose (GENTEAL TEARS; Given 08/23/2017 2 drops BION TEARS) ophthalmic solution 12:20 CDT INTRA-PROCEDURE MED, Starting 08/23/17 at 1220, Until 08/23/17 at 1356, Dry Eyes, Anesthesia Intra-op ePHEDrine 50 mg/mL 50 mg in sodium Given - New 08/23/2017 10 mg chloride PF 0.9% 5 mL IV syringe Bag 12:49 CDT 5 mL, INTRA-PROCEDURE MED(CONT), Starting 08/23/17 at 1249, Until 08/23/17 at 1356, Anesthesia Intra-op Bolus 08/23/2017 10 mg 13:09 CDT fentaNYL citrate PF (SUBLIMAZE) Given 08/23/2017 50 mcg injection 12:24 CDT INTRA-PROCEDURE MED, Starting 08/23/17 at 1224, Until 08/23/17 at 1356, Pain Injectable, Anesthesia Intra-op Given 08/23/2017 50 mcg 12:56 CDT lactated ringers infusion Given - New 08/23/2017 1,000 mL, Intravenous, at 20 mL/hr, Bag 11:52 CDT CONTINUOUS, Starting 08/23/17 at 0945, Until 08/25/17 at 0754, Pre-Op lidocaine (PF) injection Given 08/23/2017 80 mg INTRA-PROCEDURE MED, Starting Sat 12:24 CDT 08/23/17 at 1224, Until 08/23/17 at 1356, Anesthesia Intra-op phenylephrine in NS injection syringe Given 08/23/2017 100 mcg Intravenous, INTRA-PROCEDURE MED, 12:42 CDT Starting 08/23/17 at 1242, Until 08/23/17 at 1356, Symptomatic Hypotension, Anesthesia Intra-op propofol (DIPRIVAN) injection Given 08/23/2017 120 mg INTRA-PROCEDURE MED, Starting Sat 12:24 CDT 08/23/17 at 1224, Until 08/23/17 at 1356, Anesthesia Intra-op vancomycin (VANCOCIN) 1,000 mg in D5W Given - New 08/23/2017 1 g 200 mL/hr 200mL IVPB (premade) Bag 05:37 CDT 1 g, Intravenous, 200 mL, Administer over 60 Minutes, EVERY 12 HOURS, First dose on 08/23/17 at 0530, Until Discontinued Given 08/23/2017 1 g 12:24 CDT Given - New Bag 08/23/2017 1 g 200 mL/hr 18:23 CDT in this encounter
--- OUTSIDE RECORDS SUMMARY | 2017-09-23 16:44 | XMS REPORT | Encounter Summary ---
Author Author [facility] Organization [facility] Address Unknown Phone Unavailable Care Team Providers Care Publicity Agent Name Role Phone Joao Mccabe MD Unavailable Vadim Waggoner MD PCP Encounter Details Date Type Department Care Team Description 08/07/2017 Hospital [facility] Joao Mccabe MD Encounter Hospital Radiology [address] [place] [address] [address]ND FLOOR [phone] [place] [address] [phone] Social History Tobacco Use Types Packs/Day Years [...] impairment: No 07/19/2017 as of this encounter Medications at Time [...] mg by mouth 10/03/2015 mg tablet daily. cycloSPORINE (RESTASIS) Place 1 Drop into or 0.05 % ophthalmic around eye(s) twice emulsion daily. docusate (COLACE) 100 mg Take 1 capsule by mouth 180 capsule 3 2017 capsule twice daily as needed for Constipation. duloxetine DR (CYMBALTA) Take 90 mg by mouth at 10/03/2015 30 mg capsule bedtime daily. FLAXSEED OIL PO Take 1 tablet by mouth twice daily. ibandronate sodium Administer through vein. (BONIVA IV) LUMIGAN 0.01 % drop Apply 1 Drop to both eyes 10/04/2015 at bedtime daily. potassium chloride SR Take 20 mEq by mouth (K-DUR) 20 mEq tablet twice daily. Take with a meal and a full glass of water. timolol (TIMOPTIC) 0.5 % Apply 1 Drop to both eyes 10/04/2015 ophthalmic solution daily. BYSTOLIC 10 mg tablet Take 10 mg by mouth twice 10/03/2015 09/02/2017 daily. CALCIUM PO Take by mouth. 08/25/2017 cloNIDine HCl (CATAPRESS) Take 0.1 mg by mouth 10/03/2015 09/01/2017 0.1 mg tablet twice daily. ergocalciferol (vitamin Take by mouth. 08/25/2017 D2) (VITAMIN D PO) furosemide (LASIX) 40 mg Take 40 mg by mouth every 09/01/2017 tablet morning. lisinopril (PRINIVIL, Take 40 mg by mouth 10/03/2015 09/01/2017 ZESTRIL) 40 mg tablet daily. ondansetron (ZOFRAN) 4 mg Take 1 tablet by mouth 30 tablet 0 201708/25/2017 tablet every 8 hours as needed for Nausea or Vomiting. oxyCODONE (ROXICODONE, Take 1-2 tablets by mouth 90 tablet 0 201708/25/2017 OXY-IR) 5 mg tablet every 3 hours as needed traMADol (ULTRAM) 50 mg Take 1 tablet by mouth 75 tablet 0 08/07/2017 09/01/2017 tablet every 6 hours as needed for Pain. as of this encounter Plan of Treatment Date Type Specialty Care Team Description 09/16/2017 Procedure Pass Orthopedic Surgery as of this encounter Results * FOOT COMP MIN 3 VIEWS RIGHT (08/07/2017 12:40 PM) Impressions Performed At FINDINGS / IMPRESSION: [facility] 1. Interval bilateral talonavicular plate and screw arthrodesis hardware revision with right total ankle arthroplasty. Surgical hardware is intact without evidence of loosening or periprostatic fracture. Partial osseous fusion of the dorsal talonavicular joint. 2. Prior pinning of the first proximal phalanx with intact Accu track fixation screw. 3. No acute fracture or dislocation. 4. Moderate first MTP joint arthrosis. Scattered mild arthrosis of the IP joints. 5. No significant healing of the posterior calcaneal bone donor site. Approved by Gabriel Castano M.D. on 08/07/2017 2:35 PM By my electronic signature, I attest that I have personally reviewed the images for this examination and formulated the interpretations and opinions expressed in this report Finalized by Dawit Mckeon M.D. on 08/07/2017 4:27 PM. Dictated by Gabriel Castano M.D. on 08/07/2017 1:10 PM. Narrative Performed At ANKLE MIN 3 VIEWS RIGHT, FOOT COMP MIN 3 VIEWS RIGHT [facility] CLINICAL HISTORY: Female, 72 years old. Right ankle pain. COMPARISON: None. TECHNIQUE: ANKLE MIN 3 VIEWS RIGHT, FOOT COMP MIN 3 VIEWS RIGHT Procedure Note Interface, Radiant Results - 08/07/2017 4:30 PM CDT ANKLE MIN 3 VIEWS RIGHT, FOOT COMP MIN 3 VIEWS RIGHT CLINICAL HISTORY: Female, 72 years old. Right ankle pain. COMPARISON: None. TECHNIQUE: ANKLE MIN 3 VIEWS RIGHT, FOOT COMP MIN 3 VIEWS RIGHT IMPRESSION FINDINGS / IMPRESSION: 1. Interval bilateral talonavicular plate and screw arthrodesis hardware revision with right total ankle arthroplasty. Surgical hardware is intact without evidence of loosening or periprostatic fracture. Partial osseous fusion of the dorsal talonavicular joint. 2. Prior pinning of the first proximal phalanx with intact Accu track fixation screw. 3. No acute fracture or dislocation. 4. Moderate first MTP joint arthrosis. Scattered mild arthrosis of the IP joints. 5. No significant healing of the posterior calcaneal bone donor site. Approved by Gabriel Castano M.D. on 08/07/2017 2:35 PM By my electronic signature, I attest that I have personally reviewed the images for this examination and formulated the interpretations and opinions expressed in this report Finalized by Dawit Mckeon M.D. on 08/07/2017 4:27 PM. Dictated by Gabriel Castano M.D. on 08/07/2017 1:10 PM. Performing Organization Address City/State/Zipcode Phone Number [facility] * ANKLE MIN 3 VIEWS RIGHT (08/07/2017 12:40 PM) Impressions Performed At FINDINGS / IMPRESSION: [facility] 1. Interval bilateral talonavicular plate and screw arthrodesis hardware revision with right total ankle arthroplasty. Surgical hardware is intact without evidence of loosening or periprostatic fracture. Partial osseous fusion of the dorsal talonavicular joint. 2. Prior pinning of the first proximal phalanx with intact Accu track fixation screw. 3. No acute fracture or dislocation. 4. Moderate first MTP joint arthrosis. Scattered mild arthrosis of the IP joints. 5. No significant healing of the posterior calcaneal bone donor site. Approved by Gabriel Castano M.D. on 08/07/2017 2:35 PM By my electronic signature, I attest that I have personally reviewed the images for this examination and formulated the interpretations and opinions expressed in this report Finalized by Dawit Mckeon M.D. on 08/07/2017 4:27 PM. Dictated by Gabriel Castano M.D. on 08/07/2017 1:10 PM. Narrative Performed At ANKLE MIN 3 VIEWS RIGHT, FOOT COMP MIN 3 VIEWS RIGHT [facility] CLINICAL HISTORY: Female, 72 years old. Right ankle pain. COMPARISON: None. TECHNIQUE: ANKLE MIN 3 VIEWS RIGHT, FOOT COMP MIN 3 VIEWS RIGHT Procedure Note Interface, Radiant Results - 08/07/2017 4:30 PM CDT ANKLE MIN 3 VIEWS RIGHT, FOOT COMP MIN 3 VIEWS RIGHT CLINICAL HISTORY: Female, 72 years old. Right ankle pain. COMPARISON: None. TECHNIQUE: ANKLE MIN 3 VIEWS RIGHT, FOOT COMP MIN 3 VIEWS RIGHT IMPRESSION FINDINGS / IMPRESSION: 1. Interval bilateral talonavicular plate and screw arthrodesis hardware revision with right total ankle arthroplasty. Surgical hardware is intact without evidence of loosening or periprostatic fracture. Partial osseous fusion of the dorsal talonavicular joint. 2. Prior pinning of the first proximal phalanx with intact Accu track fixation screw. 3. No acute fracture or dislocation. 4. Moderate first MTP joint arthrosis. Scattered mild arthrosis of the IP joints. 5. No significant healing of the posterior calcaneal bone donor site. Approved by Gabriel Castano M.D. on 08/07/2017 2:35 PM By my electronic signature, I attest that I have personally reviewed the images for this examination and formulated the interpretations and opinions expressed in this report Finalized by Dawit Mckeon M.D. on 08/07/2017 4:27 PM. Dictated by Gabriel Castano M.D. on 08/07/2017 1:10 PM. Performing Organization Address City/State/Zipcode Phone Number [facility] RES[facility] in this encounter Visit Diagnoses Diagnosis Right ankle pain, unspecified chronicity Right foot pain Pain in limb
--- OUTSIDE RECORDS SUMMARY | 2017-09-23 16:44 | XMS REPORT | Encounter Summary ---
Author Author [facility] Organization [facility] Address Unknown Phone Unavailable Care Team Providers Care Knitting Demonstrator Name Role Phone Joao Mccabe MD Unavailable Vadim Waggoner MD PCP Encounter Details Date Type Department Care Team Description 08/06/2017 Orders Only [facility] Joao Mccabe MD Right foot pain ([facility] [address] Dx); Orthopedics and Medical [address] Right ankle pain, [place] [address] unspecified chronicity [address] [phone] [place] [address] Social History Tobacco Use Types [...] in this encounter Visit Diagnoses Diagnosis Right foot pain - Primary Pain in limb Right ankle pain, unspecified chronicity
--- OUTSIDE RECORDS SUMMARY | 2017-09-23 16:44 | XMS REPORT | Encounter Summary ---
Author Author [facility] Organization [facility] Address Unknown Phone Unavailable Care Team Providers Care Slitter And Cutter Operator Name Role Phone Joao Mccabe MD Unavailable Vadim Waggoner MD PCP Reason for Visit * Reason Comments Post Operative Visit Encounter Details Date Type Department Care Team Description 08/07/2017 Office Visit [facility] Joao Mccabe MD Ankle arthritis ([facility] [address]) [facility] [address] [place] [address] [address] [phone] [place] [address] Social History Tobacco Use Types Packs/Day Years Used Date Never Smoker Smokeless Tobacco: Never Used Alcohol Use Drinks/Week oz/Week Comments No Sex Assigned at Date Recorded Not on file as of this encounter Last Filed Vital Signs Vital Sign Reading Time Taken Blood Pressure - - Pulse - - Temperature - - Respiratory Rate - - Oxygen Saturation - - Inhaled Oxygen - - Concentration Weight 81.2 kg (179 lb) 08/07/2017 12:34 PM CDT Height 170.2 cm (5' 7") 08/07/2017 12:34 PM CDT Body Mass Index 28.04 08/07/2017 12:34 PM CDT in this encounter Functional Status [...] Progress Notes * Joao Mccabe MD - 08/07/2017 12:00 PM CDT She is here today for postoperative follow up s/p right ankle joint replacement. Her stitches are ready to come out. Wounds look fine. X rays look excellent. She did have this talonavicular joint arthrodesis, so we will go slow on her weight bearing. She can put her foot flat for balance now. In another three to four weeks, she can increase her weight bearing. She can come out of her boot to work on gentle range of motion. She can shower. I have given her some Tubigrip. I will see her back in five to six weeks. In the presence of Joao Mccabe MD, I have taken down these notes, Mario Maravilla. 08/07/2017 1:58 PM in this encounter Plan of Treatment Date Type Specialty Care Team Description 09/16/2017 Procedure Pass Orthopedic Surgery as of this encounter Visit Diagnoses Diagnosis Ankle arthritis - Primary Unspecified arthropathy, ankle and foot
--- OUTSIDE RECORDS SUMMARY | 2017-09-23 16:44 | XMS REPORT | Encounter Summary ---
Author Author [facility] Organization [facility] Address Unknown Phone Unavailable Care Team Providers Care Airborne Weapons Technical Manager Name Role Phone Joao Mccabe MD Unavailable Vadim Waggoner MD PCP Encounter Details Date Type Department Care Team Description 07/19/2017 Pharmacy Visit [facility] [address] [place] [address] Social History Tobacco Use Types Packs/Day Years [...]
--- OUTSIDE RECORDS SUMMARY | 2017-09-23 16:45 | XMS REPORT | Encounter Summary ---
Author Author [facility] Organization [facility] Address Unknown Phone Unavailable Care Team Providers Care Hematology Specialist Name Role Phone Joao Mccabe MD Unavailable Vadim Waggoner MD PCP Encounter Details Date Type Department Care Team Description 07/18/2017 Procedure Pass Main Operating Room [facility] [address] [place] [address] Social History Tobacco Use Types Packs/Day Years Used Date Never Smoker Smokeless Tobacco: Never Used Alcohol Use Drinks/Week oz/Week Comments No Sex Assigned at Date Recorded Not on file as of this encounter Plan of Treatment Date Type Specialty Care Team Description 09/16/2017 Procedure Pass Orthopedic Surgery as of this encounter Visit Diagnoses Not on filein this encounter
--- OUTSIDE RECORDS SUMMARY | 2017-09-23 16:45 | XMS REPORT | Encounter Summary ---
Author Author [facility] Organization [facility] Address Unknown Phone Unavailable Care Team Providers Care Fire And Explosion Investigator Name Role Phone Stepan Clemons MD Unavailable Vadim Waggoner MD PCP Reason for Visit * Auth/Cert Status Reason Specialty Diagnoses / Referred By Referred To Procedures Contact Contact Diagnoses Ankle arthritis Arthritis of left foot Ankle arthritis [M19.079] Arthritis of left foot [M19.072] P rocedures [place] ARTHROPLASTY ANKLE W/IMPLANT [place] REMOVAL IMPLANT DEEP [place] ARTHRODESIS MIDTARSOMETATARS AL SINGLE JOINT ARTHROPLASTY REPLACEMENT TOTAL ANKLE ([facility] #[id number]) REMOVAL HARDWARE -DEEP REPAIR TALONAVICULAR JOINT NONUNION Encounter Details Date Type Department Care Team Description 07/18/2017 Surgery Main Operating Room Stepan Clemons MD ARTHROPLASTY REPLACEMENT Main [address] TOTAL ANKLE ([facility] [id number]) [place] [address] [place] [address] [phone] Social History Tobacco Use Types Packs/Day Years Used Date Never Smoker Smokeless Tobacco: Never Used Alcohol Use Drinks/Week oz/Week Comments No Sex Assigned at Date Recorded Not on file as of this encounter Last Filed Vital Signs Vital Sign Reading Time Taken Blood Pressure 125/65 07/19/2017 12:22 PM CDT Pulse 70 07/19/2017 12:22 PM CDT Temperature 36.9 C (98.4 F) 07/19/2017 12:22 PM CDT Respiratory Rate - - Oxygen Saturation 94% 07/19/2017 12:22 PM CDT Inhaled Oxygen - - Concentration Weight 81.5 kg (179 lb 10.8 oz) 07/18/2017 11:30 AM CDT Height 167.6 cm (5' 6") 07/18/2017 11:30 AM CDT Body Mass Index 29 07/18/2017 11:30 AM CDT in this encounter Functional Status [...] impairment: No 07/19/2017 as of this encounter Discharge Summaries * Gbariel Oconnor MD - 07/19/2017 3:15 PM CDT Formatting of this note may be different from the original. Physician Discharge Summary Name: Chano Azul Date Of : 1945 Age: 72 years Admit date: 07/18/2017 Discharge date: 07/19/2017 Attending Physician: Estelle Service: Surgery-Ortho Physician Summary completed by: Gabriel Oconnor MD Reason for hospitalization: post o p Significant PMH: Past Medical History: Diagnosis Date Arthritis Back pain Fracture On supplemental oxygen therapy Osteoarthritis Osteoporosis Allergies: Patient has no known allergies. Brief Hospital Course: The patient was admitted and the following issues were addressed during this hospitalization: (with pertinent details). Patient was admitted to surgical floor following the below procedure. Physical therapy was initiated and patient was restarted on regular diet and any indicated home medications. They received oral pain medicine that was titrated to patient's needs. Labs were routinely followed and electrolytes were replaced as indicated. Prior to discharge patient was cleared by physical therapy, had adequate pain control, and had return of bowel function. Appropriate follow-up was scheduled. Condition at Discharge: Stable Discharge Diagnoses: R ankle arthritis Surgical Procedures: 07/18 Procedure(s) (LRB): ARTHROPLASTY REPLACEMENT TOTAL ANKLE ([facility] #[id number]) (Right) REMOVAL HARDWARE -DEEP (Right) REPAIR TALONAVICULAR JOINT NONUNION (Right) Significant Diagnostic Studies and Procedures: noted in brief hospital course Consults: None Patient Disposition: Home Patient instructions/medications: Driving Restrictions No driving while taking pain medication and until physician approval at follow- up appointment. Restrictions for Right Leg Non-weight bearing: Keep leg completely off the ground at all times. Do not place any weight on your leg. Elevate your leg with your toes at/above the level of your nose as much as possible to minimize swelling. Continue these restrictions until follow up appointment. Regular Diet You have no new dietary restriction. Please continue with a healthy balanced diet. While taking pain medications: - Drink plenty of fluids (not including alcohol) - Add extra fiber to your diet - Continue your stool softeners to help prevent constipation Wound Care Leave your current dressings in place until follow-up. Do not allow your splint to get wet. Hemovac Drain [facility] care instructions: *WASH HANDS PRIOR TO ANY HANDLING OF DRAIN. *Please write down daily (total for 24 hours) drain output, and empty multiple times a day as needed or according to physician's instructions. *To empty the drain, open the lid at the top of the drain to release suction. The spring device will relax completely. Then pour out the contents into measuring cup and record. To re-engage the drain, place on a hard surface and press down on the drain firmly until spring is compressed. Close the lid to recreate suction. *Bring the drain record to your next clinic appointment. *Please secure the drain to your clothes using a safety pin. *DO NOT TRY TO PUSH THE DRAIN BACK IN IF IT GETS PULLED OUT (even a little bit) , THIS IS A BIG INFECTION RISK. If you have any problems with the drain ( for example, large amounts of fluid, very bloody fluid, or loss of suction), please call your doctor. REMOVING THE DRAIN: *Once your drain output is less than 30mL in 12 hours, it may be removed by releasing the suction (by opening the tab as though you are going to empty the container) and pulling gently on the tubing coming out of the splint. It should easily slide out; if you meet resistance or have any questions, call Dr. Clemons's clinic and/or leave the drain in place until your follow-up appointment. Report These Signs and Symptoms Contact your [...] pain, or severe calf pain or swelling. Return Appointment Keep your scheduled follow-up with Dr. Clemons in 1-2 weeks. Please call [phone] or [phone] with any questions. Provider STEPAN CLEMONS [[id number]] Location [facility] Opioid (Narcotic) Safety Information OPIOID (NARCOTIC) PAIN [...] helps to maintain regular, soft bowel movements. Questions About Your Stay For questions or concerns regarding your hospital stay: DURING BUSINESS HOURS (8:00 AM - 4:30 PM) Call the Orthopedic clinic at [phone] AFTER BUSINESS HOURS AND WEEKENDS Call [phone] and ask the clarifying plant operator to page the on-call Orthopedic Resident. Discharging attending physician: STEPAN CLEMONS [[id number]] Current Discharge Medication List START taking these medications Details docusate (COLACE) 100 mg capsule Take 1 capsule by mouth twice daily as needed for Constipation. Qty: 180 capsule, Refills: 3 PRESCRIPTION TYPE: Print oxyCODONE (ROXICODONE, OXY-IR) 5 mg tablet Take 1-2 tablets by mouth every 3 hours as needed Qty: 90 tablet, Refills: 0 PRESCRIPTION TYPE: Print CONTINUE these medications which have NOT CHANGED Details acetaminophen (TYLENOL) 325 mg tablet Take 325 mg by mouth every 4 hours as needed for Pain. PRESCRIPTION TYPE: Historical Med ALPRAZolam (XANAX) 0.5 mg tablet Take 0.5 mg by mouth at bedtime daily. 0.25 to 0.5 tab at bedtime PRESCRIPTION TYPE: Historical Med amLODIPine (NORVASC) 10 mg tablet Take 10 mg by mouth daily. PRESCRIPTION TYPE: Historical Med aspirin 325 mg tablet Take 325 mg by mouth daily. Take with food. PRESCRIPTION TYPE: Historical Med atorvastatin (LIPITOR) 20 mg tablet Take 20 mg by mouth daily. PRESCRIPTION TYPE: Historical Med BYSTOLIC 10 mg tablet Take 10 mg by mouth twice daily. PRESCRIPTION TYPE: Historical Med CALCIUM PO Take by mouth. PRESCRIPTION TYPE: Historical Med cloNIDine HCl (CATAPRESS) 0.1 mg tablet Take 0.1 mg by mouth twice daily. PRESCRIPTION TYPE: Historical Med cycloSPORINE (RESTASIS) 0.05 % ophthalmic emulsion Place 1 Drop into or around eye(s) twice daily. PRESCRIPTION TYPE: Historical Med duloxetine DR (CYMBALTA) 60 mg capsule Take 60 mg by mouth at bedtime daily. PRESCRIPTION TYPE: Historical Med ergocalciferol (vitamin D2) (VITAMIN D PO) Take by mouth. PRESCRIPTION TYPE: Historical Med FLAXSEED OIL PO Take by mouth. PRESCRIPTION TYPE: Historical Med furosemide (LASIX) 40 mg tablet Take 40 mg by mouth every morning. PRESCRIPTION TYPE: Historical Med ibandronate sodium (BONIVA IV) Administer through vein. PRESCRIPTION TYPE: Historical Med lisinopril (PRINIVIL, ZESTRIL) 40 mg tablet Take 40 mg by mouth daily. PRESCRIPTION TYPE: Historical Med LUMIGAN 0.01 % drop Apply 1 Drop to both eyes at bedtime daily. PRESCRIPTION TYPE: Historical Med potassium chloride [...] your prior med list in our system traMADol (ULTRAM) 50 mg tablet Pending items needing follow up: none Signed: Gabriel Oconnor MD 07/19/2017 cc: Primary Care Physician: Vadim Waggoner Verified Referring physicians: Vadim Waggoner MD Additional provider(s): in this encounter Medications at [...] 10/03/2015 09/01/2017 ZESTRIL) 40 mg tablet daily. oxyCODONE (ROXICODONE, Take 1-2 tablets by mouth 90 tablet 0 201708/25/2017 OXY-IR) 5 mg tablet every 3 hours as needed as of this encounter Progress Notes * Shania Diaz RN - 07/19/2017 3:15 PM CDT Chano Azul discharged on 07/19/2017 to home, via wheelchair transport. Discharge instructions reviewed with patient. Signed scripts given. Education binder given. Valuables returned: Personal Items / Valuables: Clothing Where Are Valuables Stored?: with friend. Home medications: none Functional assessment at discharge complete: Yes . * Nicholas Brandt MD - 07/19/2017 12:06 PM CDT Formatting of this note may be different from the original. Anesthesiology Acute Pain Service Date of Service: 07/19/2017 Name: Chano Azul is a 72 y.o. female : 1945 PROCEDURE: Procedure(s) with comments: ARTHROPLASTY REPLACEMENT TOTAL ANKLE ([facility] #[id number]) - CASE LENGTH 2 HOURS REMOVAL HARDWARE -DEEP REPAIR TALONAVICULAR JOINT NONUNION POD #: 1 ANALGESIA TECHNIQUE Peripheral nerve catheter: Bupi 0.0125% Bolus: 5 mL Delay: 30 minutes Basal Infusion: 8 mL/hr 1 hour limit: 18 mL/hr ADJUNCT ANALGESIA MEDICATIONS fentanyl oxycodone acetaminophen PO TREATMENT PLAN Continue use of PNC for pain management , PNC working well, OnQ ball ordered in anticipation of discharge today Anesthesia Pain pager: [phone] No Known Allergies Inpatient Medications Scheduled Meds: acetaminophen (TYLENOL) tablet 1,000 mg 1,000 mg Oral TID ALPRAZolam (XANAX) tablet 0.5 mg 0.5 mg Oral QHS amLODIPine (NORVASC) tablet 10 mg 10 mg Oral QDAY aspirin tablet 325 mg 325 mg Oral QDAY cloNIDine (CATAPRESS) tablet 0.1 mg 0.1 mg Oral BID cyclosporine (RESTASIS) 0.05 % ophthalmic emulsion 1 drop 1 drop Both Eyes BID docusate (COLACE) capsule 100 mg 100 mg Oral BID(9-17) duloxetine DR (CYMBALTA) capsule 60 mg 60 mg Oral QHS furosemide (LASIX) tablet 40 mg 40 mg Oral QAM8 gabapentin (NEURONTIN) capsule 200 mg 200 mg Oral TID lisinopril (PRINIVIL; ZESTRIL) tablet 40 mg 40 mg Oral QDAY milk of magnesia (CONC) oral suspension 10 mL 10 mL Oral QDAY(21) nebivolol (BYSTOLIC) tablet 10 mg 10 mg Oral BID potassium chloride SR (K-DUR) tablet 20 mEq 20 mEq Oral QDAY timolol maleate (TIMOPTIC) 0.5 % ophthalmic drops 1 drop 1 drop Both Eyes QDAY Continuous Infusions: bupivacaine EVAPORATOR PNC 0.125% infusion syringe lactated ringers infusion 1,000 mL (07/18/17 1140) ropivacaine (NAROPIN) 0.2% infusion (ON-Q pump CB004 / [id number]) sodium chloride 0.9 % infusion 100 mL/hr at 07/18/17 1742 PRN and Respiratory Meds:bisacodyl QDAY PRN, fentaNYL citrate PF Q1H PRN, naloxone PRN, ondansetron (ZOFRAN) IV Q6H PRN, oxyCODONE Q3H PRN Anticoagulants HPI Visual Analog Scale (VAS) (0-10 Scale) At rest: 2 Patient satisfied with pain control: Yes Side Effects: none EXAM Recent Vitals Vital Signs: 24 Hour Range BP: 144/71 (07/20 815) Temp: 36.9 C (98.4 F) (07/19 522) Pulse: 73 (07/20 815) Respirations: 17 PER MINUTE (07/19 522) SpO2: 99 % (07/19 522) O2 Delivery: None (Room Air) (07/19 522) SpO2 Pulse: 67 (07/18 1745) BP: (134-159)/(66-89) Temp: [36.3 C (97.3 F)-36.9 C (98.4 F)] Pulse: [65-80] Respirations: [12 PER MINUTE-19 PER MINUTE] SpO2: [93 %-100 %] O2 Delivery: None (Room Air) Lab Results Component Value Date PLTCT 283 07/19/2017 WBC 11.1 07/19/2017 HGB 11.7 07/19/2017 HCT 34.8 07/19/2017 CR 0.60 07/19/2017 Level of Consciousness: Awake/alert Neurologic Function Sensory block: Yes Motor: Yes, a partial block Insertion Site: Site clean and nontender Associated attestation - Saritha Chambers MD - 07/19/2017 5:10 PM CDT Formatting of this note may be different from the original. ATTESTATION I personally observed the resident performing the E/M, discussed case with resident, and concur with resident documentation of history, physical assessment and treatment plan unless otherwise noted. Staff name: Saritha Chambers MD Date: 07/19/2017 * Julita Saeed PT - 07/19/2017 11:32 AM CDT PHYSICAL THERAPY ASSESSMENT MOBILITY: Mobility Progressive Mobility Level: Walk in hallway Distance Walked (feet): 30 ft (x2) Level of Assistance: Assist X1 Assistive Device: Walker Time Tolerated: 11-30 minutes Activity Limited By: Pain SUBJECTIVE: Subjective Significant hospital events: PMH: pelvic fractures, ankle fracture, OA. 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, removal of deep implants 07/18 Mental / Cognitive Status: Alert;Oriented;Cooperative;Follows Commands Persons Present: Nursing Staff Pain: Patient complains of pain;Patient does not rate pain;Before activity; During activity Pain Location: Right;Ankle Pain Interventions: Patient agrees to participate in therapy;Patient encouraged to use EVAPORATOR/PNC (IV) Comments: PNC, Drain R LE Precautions: RLE Non-Weight Bearing Ambulation Assist: Independent Mobility in Community without Device Patient Owned Equipment: Roller Walker;4-Wheeled Walker (Knee scooter) Home Situation: Lives Alone;Has Assistance Available as Needed (Cousin will be staying with pt for 2 weeks) Type of Home: House Entry Stairs: 1-2 Stairs;Rail on 1 Side (2 steps with pole on one side) In-Home Stairs: Able to Live on One Level Comments: Patient reports no falls in the past 3 months. Patient reports she is wanting to go home today. ROM: ROM ROM Position Assessed: Supine ROM Method: Active LE ROM: Right;Limited;Left;Hip;Knee;Ankle;WFL STRENGTH: Strength Overall Strength: WFL;No Focal Deficits Noted POSTURE/NEURO: Posture / Neurological Head Control: Independent Posture: No Postural Deviations LLE Sensation/Proprioception: Intact Light Touch RLE Sensation/Proprioception: Impaired Light Touch (d/t PNC) BED MOBILITY/TRANSFERS: Bed Mobility/Transfers Bed Mobility: Supine to Sit: Standby Assist;Bed Flat;No Rail Bed Mobility: Sit to Supine: Standby Assist;Bed Flat;No Rail Transfer Type: Sit to Stand Transfer: Assistance Level: From;Toilet;To;Bed;Minimal Assist Transfer: Assistive Device: Roller Walker Transfers: Type Of Assistance: For Safety Considerations;Requires Extra Time; For Balance Other Transfer Type: Sit to/from Stand Other Transfer: Assistance Level: To/From;Bed;Bed Side Chair;Standby Assist Other Transfer: Assistive Device: Roller Walker Other Transfer: Type Of Assistance: Verbal Cues;For Safety Considerations; Requires Extra Time End Of Activity Status: In Bed;Nursing Notified;Instructed Patient to Request Assist with Mobility;Instructed Patient to Use Call Light Comments: During first contact with patient. Patient on toilet complaining of "wooziness" RN present and vitals were taken. BP was 146/68. Patient reports feeling unable to participate in more therapy at this time. Therapist set up time with patient to come back at later time this date. BALANCE: Balance Sitting Balance: Static Sitting Balance;Dynamic Sitting Balance;No UE Support; Standby Assist Standing Balance: Static Standing Balance;2 UE support;Standby Assist GAIT: Gait Gait Distance: 30 feet (x2; 15 x1) Gait: Assistance Level: Minimal Assist;Standby Assist;Management of Lines; Safety Considerations Gait: Assistive Device: Roller Walker Gait: Descriptors: Decreased step length Comments: Contact guard initially for ambulation then progressed to standby. Stairs: Number Climbed: 1 (x2 tunes) Stairs: Assistance Level: Minimal Assist Stairs: Assistive Device: Roller Walker Activity Limited By: Complaint of Pain Comments: Patient performed stairs using backwards method with chair on top step. Patient able to perform backwards step with contact guard assist and was able to sit safely on chair on top step. Patient performed this method x2 times and feels comfortable performing this method at home. EDUCATION: Education Persons Educated: Patient Patient Barriers To Learning: None Noted Interventions: Repetition of Instructions Teaching Methods: Verbal Instruction;Demonstration Patient Response: Verbalized Understanding;Return Demonstration Topics: Plan/Goals of PT Interventions;Use of Assistive Device/Orthosis; Mobility Progression;Safety Awareness;Up with Assist Only;Importance of Increasing Activity;Ambulate With Nursing;Positioning ASSESSMENT/PROGRESS: Assessment/Progress Impaired Mobility Due To: Weight Bearing Restrictions;Pain Assessment/Progress: Expect Good Progress;Should Improve w/ Continued PT Comments: Patient is currently moving as expected after this procedure. AM-PAC 6 Clicks Basic Mobility Inpatient Turning from your back to your side while in a flat bed without using bed rails : None Moving from lying on your back to sitting on the side of a flatbed without using bedrails : A Little Moving to and from a bed to a chair (including a wheelchair): A Little Standing up from a chair using your arms (e.g. wheelchair, or bedside chair): A Little To walk in hospital room: A Little Climbing 3-5 steps with a railing: A Little Raw Score: 19 Standardized (T-scale) Score: 42.48 Basic Mobility CMS 0-100%: 36.99 CMS G Code Modifier for Basic Mobility: JESSENIA G-Codes: Mobility G8978 Current Status: 20-39% Impairment G8979 Goal Status: 1-19% Impairment Based on above evaluation and clinical judgment. GOALS: Goals Goal Formulation: With Patient Time For Goal Achievement: 2 days Pt Will Go Supine To/From Sit: Independently Pt Will Transfer Sit to Stand: w/ Stand By Assist Pt Will Ambulate: 31-50 Feet, w/ Walker, w/ Stand By Assist Pt Will Go Up / Down Stairs: 1-2 Stairs, w/ Stand By Assist PLAN: Plan Treatment Interventions: Mobility Training Plan Frequency: 5-7 Days per Week PT Plan for Next Visit: Likely see one-two more visits to progress ambulation and continue to trial stairs. RECOMMENDATIONS: PT Discharge Recommendations PT Discharge Recommendations: Home with Assistance Equipment Recommendations: Patient owns necessary equipment Comments: Patient able to safely demonstrate stair climbing with minimal assist. Patient states she is comfortable with performing this method at home. Will continue to follow patient if she remains in house and provide intervention as necessary. Recommend ongoing assistance for: In and out of house;Ambulation;Stairs;Safety concerns Therapist: Julita Saeed, PT Date: 07/19/2017 * Toya Rutledge, OT - 07/19/2017 9:17 AM CDT Formatting of this note may be different from the original. OCCUPATIONAL THERAPY ASSESSMENT NOTE Patient Name: Chano Azul Room/Bed: [place] [address] Admitting Diagnosis: Ankle arthritis [M19.079] Arthritis of left foot [M19.072] Ankle arthritis Past Medical History: Diagnosis Date Arthritis Back pain Fracture On supplemental oxygen therapy Osteoarthritis Osteoporosis Mobility Progressive Mobility Level: Walk in room Distance Walked (feet): 30 ft Level of Assistance: Assist X1 Assistive Device: Walker Time Tolerated: 11-30 minutes Activity Limited By: Pain Subjective Pertinent Dx per Physician: PMH: pelvic fractures, ankle fracture, OA. 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, removal of deep implants 07/18 Precautions: Falls (HV drain, PNC) R LE Precautions: RLE Non-Weight Bearing Pain / Complaints: Patient agrees to participate in therapy Objective Psychosocial Status: Willing and Cooperative to Participate Home Living Type of Home: House Home Layout: Performs ADL'S on One Level (2 steps to enter with rails) Bathroom Shower / Tub: Tub/Shower Unit Bathroom Toilet: Raised Bathroom Equipment: Tub Transfer Bench;Hand-Held Shower;Grab Bars in Shower Bathroom Accessibility: Accessible via Walker Home Equipment: Walker;Rehabilitation Specialist (4WW, ordred knee scooter) Prior Function Level Of Sherrill: Independent with ADLs and functional transfers; Independent with homemaking w/ ambulation Lives With: Alone Receives Help From: Family;Friends Other Function Comments: Pt reports cousin is staying with her for two weeks. Friends are providing assistance with IADLs. Vision Current Vision: Wears Glasses Only for Reading ADL's Where Assessed: In Bathroom;Supine, Bed Eating Assist: Stand By Assist Eating Deficits: Beverage Management Toileting Assist: Stand By Assist Toileting Deficits: Perineal Hygiene Functional Transfer Assist: Minimal Assist Functional Transfer Deficits: Toilet Transfer Comment: Pt supine upon OT arrival. Pt able to complete supine<>sit with stand by assist. Pt completed sit<>stand and functional mobility in room with roller walker and minimal assist, cues for slower pace. Pt returned to supine at end of session with all needs within reach and bed alarm set. Activity Tolerance Endurance: 2/5 Tolerates 10-20 Minutes Exercise w/Multiple Rests Sitting Balance: 4+/5 Moves/Returns Trunkal Midpoint 1-2 Inches in Multiple Planes Cognition Overall Cognitive Status: WFL to Adequately Complete Self Care Tasks Safely Attention: Awake/Alert UE AROM Overall BUE AROM WNL: Yes Coordination: Adequate to Complete ADLs Grasp: Bilateral Grasp Functional for Activity Sensory Overall Sensory: Pt Perceives Pressure in Both UEs in Gross Exam UE Strength / Tone Overall Strength / Tone: WNL BUE Strength 5/5 Education Persons Educated: Patient Barriers To Learning: None Noted Teaching Methods: Verbal Instruction;Demonstration Patient Response: Verbalized and Demo Understanding Topics: Role of OT, Goals for Therapy;Home safety;ADL Compensatory Techniques Goal Formulation: With Patient Comments: Pt engaged in conversation regarding appropriate assistive device for discharge home. Assessment Assessment: Decreased ADL Status;Decreased Self-Care Trans;Decreased High-Level ADLs Prognosis: Good Goal Formulation: Patient AM-PAC 6 Clicks Daily Activity Inpatient Putting on and taking off regular lower body clothes?: A Little Bathing (Including washing, rinsing, drying): A Little Toileting, which includes using toilet, bedpan, or urinal: A Little Putting on and taking off regular upper body clothing: None Taking care of personal grooming such as brushing teeth: None Eating meals?: None Daily Activity Raw Score: 21 Standardized (t-scale) score: 44.27 CMS 0-100% Score: 32.79 CMS G Code Modifier: CJ Plan OT Frequency: 5x/week OT Plan for Next Visit: LE dressing ADL Goals Patient Will Perform LE Dressing: w/ Stand By Assist Functional Transfer Goals Pt Will Perform All Functional Transfers: w/ Stand By Assist OT Discharge Recommendations OT Discharge Recommendations: Home with family assist Equipment Recommendations: Patient owns necessary equipment Recommend ongoing assistance for: Transfers, Dressing, Bathing, In and out of house, Ambulation G-Codes: Self-care G8987 Current Status: 20-39% Impairment G8988 Goal Status: 1-19% Impairment Based on above evaluation and clinical judgment. Therapist: PALAK Valdez/Lisa [id number] Date: 07/19/2017 * Gabriel Oconnor MD - 07/19/2017 6:53 AM CDT Formatting of this note may be different from the original. S: No acute events. Pain well-controlled on current regimen. Patient tolerating current diet. O: Blood pressure 137/83, pulse 80, temperature 36.9 C (98.4 F), height 167.6 cm (66"), weight 81.5 kg (179 lb 10.8 oz), SpO2 99 %. General: AAOx3, NAD Cardiac: RRR Respirations: Unlabored Abdomen: soft, nt Extremities: right lower extremity compartments soft, SILT, distal cap refill < 2 sec Incisions: Clean dry and intact Post-op Drains: (24 hours) Hemovac: Wound VAC: No results for input(s): PTT, INR in the last 72 hours. CBC w/Diff Lab Results Component Value Date/Time WBC 11.1 (H) 07/19/2017 03:42 AM HGB 11.7 (L) 07/19/2017 03:42 AM HCT 34.8 (L) 07/19/2017 03:42 AM PLTCT 283 07/19/2017 03:42 AM Basic Metabolic Profile Lab Results Component Value Date/Time NA 137 07/19/2017 03:42 AM K 4.1 07/19/2017 03:42 AM CL 105 07/19/2017 03:42 AM CO2 29 07/19/2017 03:42 AM GAP 3 07/19/2017 03:42 AM Lab Results Component Value Date/Time BUN 13 07/19/2017 03:42 AM CR 0.60 07/19/2017 03:42 AM GLU 161 (H) 07/19/2017 03:42 AM A/P: 72F s/p R TAA 07/18 -PT OT NWB RLE -DVT ppx: holding for bleeding risk -Po/PNC for pain control -acute blood loss anemia-asymptomatic, monitor dc today * Gabriel Ku, RT - 07/18/2017 6:52 PM CDT Formatting of this note may be different from the original. RESPIRATORY THERAPY ADULT PROTOCOL EVALUATION RESPIRATORY PROTOCOL PLAN Medications Note: If indicated by protocol, medication orders will be placed by therapist. Procedures PATIENT EVALUATION RESULTS Chart Review * Pulmonary [...] Ambulatory with assistance Priority Index Total Points: 2 Points * Priority Index: Criteria not met PRIORITY INDEX GUIDELINES* Priority Points 1 0-9 points 2 9-18 points 3 > 18 points + Pulm Dx or Home Rx *Higher points indicate higher acuity. Therapist: Gabriel Ku, RT Date: 07/18/2017 Diane AC=Airway clearance AM=Aerosolized medication BA=Baker aerosol DB&C=Deep breathe & cough FEV1=Forced expiratory volume in first second) IC=Inspiratory capacity LE=Lung expansion MDI=Metered dose inhaler Neb=Nebulizer O2=Oxygen Oxim=Oximetry PEFR=Peak expiratory flow rate HAMMER ADJUSTER=Rapid Response Team * Yamini Slaughter RN - 07/18/2017 6:03 PM CDT 1803: Report received from YASMANI Urena in PACU. 1820: Patient arrived on unit via cart accompanied by RN. Patient transferred to the bed without assistance. HR regulars, lungs clear, vss. Dressing c/d/i. Cap refill <3. Pt rates pain 5/10 on medial right ankle. Orders released, reviewed, and implemented as appropriate. Oriented to surroundings, call light within reach. Plan of care reviewed. Will continue to monitor and assess. in this encounter H&P Notes * Dmitriy Hayes MD - 07/18/2017 12:51 PM CDT Formatting of this note may be different from the original. History and Physical Update Note Allergies: Patient has no known allergies. Lab/Radiology/Other Diagnostic Tests: 24-hour labs: No results found for this visit on 07/18/17 (from the past 24 hour(s)). Point of Care Testing: (Last 24 hours): -to OR 07/18/17 for right total ankle arthroplasty, repair of talonavicular nonunion with revision arthrodesis, removal of deep implants Dmitriy Hayes MD Pager [phone] [facility] History & Physical Note Admission Date: 07/18/2017 Chief Complaint: Right ankle and foot pain History of Present Illness: Chano Azul is a 72 y.o. female with the above chief complaint. She wishes to proceed with above described procedures to address her right ankle and foot pain. Patient otherwise denies any recent fevers, chills, nausea, vomiting, diarrhea, constipation, dysuria, or additional constitutional symptoms. Review of Systems: 12 Point Review of Systems obtained and is negative except where pertinent items noted in HPI. PMH - Past Medical History: Diagnosis Date Arthritis Back pain Fracture On supplemental oxygen therapy Osteoarthritis Osteoporosis PSH - Past Surgical History: Procedure Laterality Date FOOT SURGERY HX FUSION PROCEDURE HX JOINT REPLACEMENT HX TONSILLECTOMY KNEE SURGERY LAMINECTOMY SoHx - Social History Social History Marital status: Spouse name: N/A Number of children: N/A Years of education: N/A Occupational History Not on file. Social History Main Topics Smoking status: Never Smoker Smokeless tobacco: Never Used Alcohol use No Drug use: No Sexual activity: Not on file Other Topics Concern Not on file Social History Narrative No narrative on file FamHx - noncontributory to current illness, except as noted in HPI Meds - please refer to medical record Allergies: Patient has no known allergies. Physical Exam: Blood pressure 136/77, pulse 65, temperature 36.5 C (97.7 F), height 167.6 cm (66"), weight 81.5 kg (179 lb 10.8 oz), SpO2 100 %. General: Alert, NAD Head: Atraumatic, Normocephalic Pulm: Unlabored breathing CV: Regular rate Abdomen: Soft, nt Musculoskeletal: RLE: Fires ehl/fhl/df/pf, silt s/ss/sp/dp/pt, brisk cap refill all five digits Skin: RLE: past surgical incisions well healed Neurologic: CN II-XII grossly intact, no gross neurologic deficits appreciated Lab/Radiology/Other Diagnostic Tests: CBC w/Diff No results found for: WBC, HGB, HCT, PLTCT Inflammatory Markers No results found for: ESR, CRP Coagulation Studies No results found for: PT, PTT, INR Basic Metabolic Profile No results found for: NA, K, CL, CO2, GAP, BUN, CR, GLU Radiology: reviewed Assessment Chano Azul is a 72 y.o. female with right ankle and foot pain Plan -to OR 07/18/17 for right total ankle arthroplasty, repair of talonavicular nonunion, revision talonavicular arthrodesis, removal of deep implants Dmitriy Hayes MD Pager [phone] in this encounter Miscellaneous Notes * Patient Education - Shania Diaz RN - 07/19/2017 3:15 PM CDT Chano Azul accepted education and was engaged. she demonstrated understanding. The following was discussed: ALL DISCHARGE INSTRUCTIONS, ON-Q BALL, HEMOVAC DRAIN * Operative Report (DICTATED ONLY) - Stepan Clemons MD - 07/19/2017 3:15 PM CDT THE [address] [id number] PATIENT NAME: CHANO AZUL MR#/PT#: [id number] Page 1 OPERATIVE REPORT DATE OF OPERATION: 07/18/2017 SURGEON: Stepan Clemons MD PATENT CLERK(S): Dmitriy Hayes MD. PREOPERATIVE DIAGNOSIS: 1. Right ankle traumatic arthropathy. 2. Nonunion talonavicular joint. 3. Complication of deep orthopedic implant. 4. Gastrocsoleus contracture. POSTOPERATIVE DIAGNOSIS: Same. OPERATIVE PROCEDURE: 1. Right total ankle arthroplasty with Shin [employer] implant. 2. Gastrocsoleus recession. 3. Revision talonavicular joint arthrodesis with autogenous bone graft in addition to Infuse. 4. Deep implant removal. ANESTHESIA: General. INDICATIONS FOR OPERATIVE PROCEDURE: The patient has had a previous attempted talonavicular joint fusion. Unfortunately, this got onto a nonunion. She also has a progressive arthritic change of her ankle. DESCRIPTION AND FINDINGS OF OPERATIVE PROCEDURE: After consent was obtained, the patient was taken to the operating room, where satisfactory anesthesia was established. The right lower extremity was then prepped and draped in a sterile manner. Anterior incision was utilized. Dissection was carried down through the skin and subcutaneous tissues. Dissection was carried down to the capsular plane. There was a significant amount of blackening of the synovium presumably from the titanium debris. I dissected out further distally where the previously attempted talonavicular joint arthrodesis was also identified. There were multiple screws and a plate that were instrumented and removed. I did have to make a small separate medial incision in order to get one of the screws out. I cleared off the soft tissue off the ankle. Moderate amount of degenerative changes were identified. The [employer] patient-specific guides were utilized. This allowed the placement of a distal tibial guide. I then created a distal tibial cut that was perpendicular to the long axis. All the excess bone was removed from this. Following this, I affixed the talar cutting guide. This allowed for a flat cut on the upper portion of the talus. The components were trialed and the PEG holes were drilled out. A tibial component was then press-fit into place. This was followed by a talar component. Polyethylene was trialed. It seemed like she was a bit tight posteriorly and I wanted to go to a little bit bigger poly. I turned my attention posteriorly, where the gastrocsoleus area was exposed. The sural nerve was protected and the peritenon was incised. The tendon of the gastroc was then sharply transected leaving the underlying soleus muscle intact. This improved her passive dorsiflexion. The final polyethylene component was then inserted. Please refer to the operative implant log for the exact sizing of the Shin [employer] total ankle implant component. From the bone that I had removed from my distal tibial cut, I took off the remaining articular cartilage and then morselized the cancellous bone in a bone mill. The talonavicular joint was exposed. Really the surfaces looked good. There was not any residual cartilage, there was just basically fibrous tissue in this area. I cleaned all this out. I utilized Infuse and packed my bone graft material in place. A Mukul compression plate was then applied. Excellent fixation and compression were achieved. The wound was then closed in a meticulous layered manner. This was augmented with some platelet rich plasma. I did close the wound over a drain. Sterile dressing was applied. This was followed by a short-leg splint. The patient tolerated the procedure well. She was subsequently awakened and taken to recovery room in satisfactory condition. ESTIMATED BLOOD LOSS: Minimal SPECIMENS REMOVED: Deep implant, multiple plate and screws for disposal. Stepan Clemons MD GH / MEDQ /[id number] cc: - Stepan Clemons MD * Care Plan - Shania Diaz RN - 07/19/2017 2:00 PM CDT Problem: Self-Care Deficit Goal: Maximize ADL functioning Outcome: Goal Achieved Date Met: 07/19/17 Maximizes ADLs Problem: Mobility/Activity Intolerance Goal: Maximize functional ADL's and mobility outcomes Outcome: Goal Achieved Date Met: 07/19/17 Maximizes ADLs * Anesthesia Post Op Day 1 - Sotero Rios SRNA - 07/19/2017 11:39 AM CDT Formatting of this note may be different from the original. Anesthesia Follow-Up Evaluation: Post-Procedure Day One Name: Chano Azul : 1945 Age: 72 y.o. Sex : female Procedure Date: 07/18/2017 Procedure: Procedure(s) with comments: ARTHROPLASTY REPLACEMENT TOTAL ANKLE (PROPHECY #[id number]) - CASE LENGTH 2 HOURS REMOVAL HARDWARE -DEEP REPAIR TALONAVICULAR JOINT NONUNION Physical Assessment Height: 167.6 cm (66") Weight: 81.5 kg (179 lb 10.8 oz) Vital Signs (Last Filed in 24 hours) BP: 144/71 (07/20 815) Temp: 36.9 C (98.4 F) (07/19 522) Pulse: 73 (07/20 815) Respirations: 17 PER MINUTE (07/19 522) SpO2: 99 % (07/19 522) O2 Delivery: None (Room Air) (07/19 522) SpO2 Pulse: 67 (07/18 1745) Patient History Allergies No Known Allergies Medications Scheduled Meds: acetaminophen (TYLENOL) tablet 1,000 mg 1,000 mg Oral TID ALPRAZolam (XANAX) tablet 0.5 mg 0.5 mg Oral QHS amLODIPine (NORVASC) tablet 10 mg 10 mg Oral QDAY aspirin tablet 325 mg 325 mg Oral QDAY cloNIDine (CATAPRESS) tablet 0.1 mg 0.1 mg Oral BID cyclosporine (RESTASIS) 0.05 % ophthalmic emulsion 1 drop 1 drop Both Eyes BID docusate (COLACE) capsule 100 mg 100 mg Oral BID(9-17) duloxetine DR (CYMBALTA) capsule 60 mg 60 mg Oral QHS furosemide (LASIX) tablet 40 mg 40 mg Oral QAM8 gabapentin (NEURONTIN) capsule 200 mg 200 mg Oral TID lisinopril (PRINIVIL; ZESTRIL) tablet 40 mg 40 mg Oral QDAY milk of magnesia (CONC) oral suspension 10 mL 10 mL Oral QDAY(21) nebivolol (BYSTOLIC) tablet 10 mg 10 mg Oral BID potassium chloride SR (K-DUR) tablet 20 mEq 20 mEq Oral QDAY timolol maleate (TIMOPTIC) 0.5 % ophthalmic drops 1 drop 1 drop Both Eyes QDAY Continuous Infusions: bupivacaine EVAPORATOR PNC 0.125% infusion syringe lactated ringers infusion 1,000 mL (07/18/17 1140) ropivacaine (NAROPIN) 0.2% infusion (ON-Q pump CB004 / [id number]) sodium chloride 0.9 % infusion 100 mL/hr at 07/18/17 1742 PRN and Respiratory Meds:bisacodyl QDAY PRN, fentaNYL citrate PF Q1H PRN, naloxone PRN, ondansetron (ZOFRAN) IV Q6H PRN, oxyCODONE Q3H PRN Diagnostic Tests Hematology: Lab Results Component Value Date HGB 11.7 07/19/2017 HCT 34.8 07/19/2017 PLTCT 283 07/19/2017 WBC 11.1 07/19/2017 NEUT 85 07/19/2017 ANC 9.40 07/19/2017 ALC 0.60 07/19/2017 BENJAMIN 9 07/19/2017 AMC 1.00 07/19/2017 EOSA 0 07/19/2017 ABC 0.00 07/19/2017 MCV 91.9 07/19/2017 MCH 30.9 07/19/2017 MCHC 33.6 07/19/2017 MPV 7.5 07/19/2017 RDW 13.8 07/19/2017 General Chemistry: Lab Results Component Value Date NA 137 07/19/2017 K 4.1 07/19/2017 CL 105 07/19/2017 CO2 29 07/19/2017 GAP 3 07/19/2017 BUN 13 07/19/2017 CR 0.60 07/19/2017 GLU 161 07/19/2017 CA 8.9 07/19/2017 Coagulation: No results found for: PT, PTT, INR Follow-Up Assessment Patient location during evaluation: floor Anesthetic Complications: Anesthetic complications: The patient did not experience any anesthestic complications. Pain: Score: 2 Management:satisfactory to patient Level of Consciousness: awake and alert Hydration:acceptable Airway Patency: patent Respiratory Status: acceptable, spontaneous ventilation and nasal airway (2L) Cardiovascular Status:acceptable and hemodynamically stable Regional/Neuroaxial: Peripheral nerve catheter in place Neurological status: sensory deficit * Patient Education - Dian Rivera RN - 07/19/2017 5:34 AM CDT This RN initiated education binder and left at patient's bedside for review with day RN. * Procedures (Immed Post or Bedside) - Mono Higuera MD - 07/18/2017 4:52 PM CDT Brief Operative Note Name: Chano Azul is a 72 y.o. female : 1945 DATE OF OPERATION: 07/18/2017 Date: 07/18/2017 Preoperative Dx: Ankle arthritis [M19.079] Arthritis of left foot [M19.072] Post-op Diagnosis * Ankle arthritis [M19.079] * Arthritis of left foot [M19.072] Procedure(s) (LRB): ARTHROPLASTY REPLACEMENT TOTAL ANKLE (PROPHECY #[id number]) (Right) REMOVAL HARDWARE -DEEP (Right) REPAIR TALONAVICULAR JOINT NONUNION (Right) Anesthesia Type: General Surgeon(s) and Role: * Dmitriy Hayes MD - Resident - Assisting * Mono Higuera MD - Resident - Assisting * Stepan Clemons MD - Primary Findings: Arthritis of R ankle joint Estimated Blood Loss: No blood loss documented. Specimen(s) Removed/Disposition: * No specimens in log * Complications: None Implants: Please see dictation Drains: None and Hemovac: 5 mL Disposition: PACU - stable Mono Higuera MD Pager [phone] in this encounter Plan of Treatment Date Type Specialty Care Team Description 09/16/2017 Procedure Pass Orthopedic Surgery Name Priority Associated Diagnoses Date/Time POC ANES US GUIDED NERVE BLOCK Routine 07/18/2017 10:12 AM CDT Name Priority Associated Diagnoses Order Schedule POC ANES US GUIDED NERVE BLOCK Routine ONE TIME for 1 Occurrences starting 07/18/2017 until 07/18/2017 as of this encounter Procedures Procedure Name Priority Date/Time Associated Diagnosis Comments ECG-SCAN 07/22/2017 Results for this 11:45 AM CDT procedure are in the results section. ARTHRODESIS FOOT 07/18/2017 Ankle arthritis 11:55 AM CDT REMOVAL HARDWARE -DEEP 07/18/2017 Ankle arthritis 11:55 AM CDT ARTHROPLASTY REPLACEMENT 07/18/2017 Ankle arthritis TOTAL ANKLE 11:55 AM CDT in this encounter Results * ECG-SCAN (07/22/2017 11:45 AM) Narrative Performed At Ordered by an unspecified provider. * BASIC METABOLIC PANEL (07/19/2017 3:42 AM) Sodium 137 137 - 147 MMOL/L [facility] Potassium 4.1 3.5 - 5.1 MMOL/L [facility] Chloride 105 98 - 110 MMOL/L [facility] CO2 29 21 - 30 MMOL/L [facility] Anion Gap 3 3 - 12 [facility] Glucose 161 (H) 70 - 100 MG/DL [facility] Blood Urea Nitrogen 13 7 - 25 MG/DL [facility] Creatinine 0.60 0.4 - 1.00 MG/DL [facility] Calcium 8.9 8.5 - 10.6 MG/DL [facility] [...] Address City/State/Zipcode Phone Number [facility] [address] [place] [address] * CBC AND DIFF (07/19/2017 3:42 AM) White Blood Cells 11.1 (H) 4.5 - 11.0 K/UL [facility] RBC 3.79 (L) 4.0 - 5.0 M/UL [facility] Hemoglobin 11.7 (L) 12.0 - 15.0 GM/DL [facility] Hematocrit 34.8 (L) 36 - 45 % [facility] MCV 91.9 80 - 100 FL [facility] MCH 30.9 26 - 34 PG [facility] MCHC 33.6 32.0 - 36.0 G/DL [facility] RDW 13.8 11 - 15 % [facility] Platelet Count 283 150 - 400 K/UL [facility] MPV 7.5 7 - 11 FL [facility] Neutrophils 85 (H) 41 - 77 % [facility] Lymphocytes 6 (L) 24 - 44 % [facility] Monocytes 9 4 - 12 % [facility] Eosinophils 0 0 - 5 % [facility] Basophils 0 0 - 2 % [facility] Absolute Neutrophil Count 9.40 (H) 1.8 - 7.0 K/UL [facility] Absolute Lymph Count 0.60 (L) 1.0 - 4.8 K/UL [facility] Absolute Monocyte Count 1.00 (H) 0 - 0.80 K/UL [facility] Absolute Eosinophil Count 0.00 0 - 0.45 K/UL [facility] Absolute Basophil Count 0.00 0 - 0.20 K/UL [facility] Specimen Blood Performing Organization Address City/State/Zipcode Phone Number [facility] [address] [place] [address] in this encounter Visit Diagnoses Diagnosis Ankle arthritis Unspecified arthropathy, ankle and foot Arthritis of left foot Unspecified arthropathy, ankle and foot Admitting Diagnoses Diagnosis Ankle arthritis - Ankle arthritis [M19.079] Unspecified arthropathy, ankle and foot Arthritis of left foot - Arthritis of left foot [M19.072] Unspecified arthropathy, ankle and foot Ankle arthritis Administered Medications Medication Order MAR Action Action Date Dose Rate Site acetaminophen (TYLENOL) tablet 1,000 mg Given 07/18/2017 1,000 mg 1,000 mg, Oral, THREE TIMES DAILY, 9 17:36 CDT doses, First dose on Fri07/18/17 at 1500, Last dose on Fri07/21/17 at 0900, Pain Management Adjuvant Therapy for PNC EVAPORATOR. TOTAL ACETAMINOPHEN DOSE NOT TO EXCEED 4GM DAILY Given 07/19/2017 1,000 mg 08:17 CDT Given 07/19/2017 1,000 mg 14:58 CDT amLODIPine (NORVASC) tablet 10 mg Given 07/19/2017 10 mg 10 mg, Oral, DAILY, First dose on Sat 08:18 CDT 07/19/17 at 0900, Until Discontinued, NURSING: Please educate patient and document: Do not give with grapefruit juice. anticoagulant sodium citrate solution Given 07/18/2017 1.5 mL INTRA-PROCEDURE MED, Starting Fri07/18/17 14:43 CDT at 1443, Until Fri07/18/17 at 1815, Intra-op aspirin tablet 325 mg Given 07/19/2017 325 mg 325 mg, Oral, DAILY, First dose on Sat 08:18 CDT 07/19/17 at 0900, Until Discontinued bupivacaine EVAPORATOR PNC 0.125% infusion Given - New 07/19/2017 syringe Bag 05:30 CDT Peripheral Nerve Cath, EVAPORATOR, Starting Fri07/18/17 at 1500, Until 07/19/17 at 1715, PNC Location: Popliteal For INADEQUATE Pain Control (Pain score 4 or greater using Numeric Pain Scale 0-10, may be modified for chronic patients): - PNC EVAPORATOR Bolus Dose 0 mL x1 dose (Suggest for weight >50kg, 10mL bupivacaine 0.1%). - Increase continuous infusion to 0 mL/hr (Suggest bupivacaine 0.1% increase by 2 mL/hr). - Increase 1 hour limit to 0 mL. --FOR PERIPHERAL NERVE SHEATH CATHETER -- NOTE: This is a HIGH ALERT Medication. Dose/Rate Verify 07/19/2017 07:23 CDT Given - New Bag 07/19/2017 10:05 CDT cloNIDine (CATAPRESS) tablet 0.1 mg Given 07/18/2017 0.1 mg 0.1 mg, Oral, TWICE DAILY, First dose on 21:04 CDT Fri07/18/17 at 2100, Until Discontinued, Hold for heart rate < 60 bpm, systolic BP < 90 or diastolic BP < 60 Given 07/19/2017 0.1 mg 08:18 CDT cyclosporine (RESTASIS) 0.05 % Given 07/18/2017 1 drop ophthalmic emulsion 1 drop 20:57 CDT 1 drop, Both Eyes, TWICE DAILY, First dose on Fri07/18/17 at 2100, Until Discontinued Given 07/19/2017 1 drop 08:19 CDT docusate (COLACE) capsule 100 mg Given 07/18/2017 100 mg 100 mg, Oral, TWICE DAILY, First dose on 21:03 CDT Fri07/18/17 at 1830, Until Discontinued, Hold for loose stools Given 07/19/2017 100 mg 08:[address] (CYMBALTA) capsule 60 mg Given 07/18/2017 60 mg 60 mg, Oral, AT BEDTIME DAILY, First 20:54 CDT dose on 07/18/17 at 2100, Until Discontinued, Swallow whole - DO NOT open or crush capsule furosemide (LASIX) tablet 40 mg Given 07/19/2017 40 mg 40 mg, Oral, EVERY MORNING, First dose 08:17 CDT on 07/19/17 at 0900, Until Discontinued gabapentin (NEURONTIN) capsule 200 mg Given 07/18/2017 200 mg 200 mg, Oral, THREE TIMES DAILY, 6 20:54 CDT doses, First dose on Fri07/18/17 at 1500, Last dose on Fri07/20/17 at 0900, Pain Management Adjuvant Therapy for PNC EVAPORATOR. Given 07/19/2017 200 mg 08:17 CDT Given 07/19/2017 200 mg 14:58 CDT gentamicin injection Given 07/18/2017 2 mL Leg, Lower INTRA-PROCEDURE MED, Starting Fri07/18/17 16:37 CDT Right at 1637, Until Fri07/18/17 at 1815, Intra-op lactated ringers infusion Given - New 07/18/2017 1,000 mL 20 mL/hr 1,000 mL, 1,000 mL, Intravenous, at 20 Bag 11:40 CDT mL/hr, CONTINUOUS, Starting Fri07/18/17 at 1130, Until 07/19/17 at 1715, Pre-Op lisinopril (PRINIVIL; ZESTRIL) tablet 40 Given 07/19/2017 40 mg mg 08:18 CDT 40 mg, Oral, DAILY, First dose on Fri07/19/17 at 0900, Until Discontinued milk of magnesia (CONC) oral suspension Given 07/18/2017 10 mL 10 mL 20:48 CDT 10 mL, Oral, DAILY, First dose on Fri07/18/17 at 2100, Until Discontinued, Administer daily until patient has return of normal bowel function, then give daily PRN constipation. 10 mL CONC=30 mL MOM naloxone (NARCAN) injection 0.08 mg 0.08 mg, Intravenous, NEEDED, Starting Fri07/19/17 at 0936, Until Fri07/19/17 at 1715, Respiratory Depression, FOR RESPIRATORY RATE < 7/MIN: - Dilute one ampule of naloxone 0.4mg (1mL) with 9 mL NS for injection (for a total of 10 mL). - Inject 0.08 mg (2 mL of dilution) of diluted naloxone every 2 minutes until respiratory rate improves (RR > 7/min), and/or drowsiness abates and call physician. IF PATIENT IS APNEIC: - Give naloxone 0.4 mg every 2 minutes until respiratory rate improves (RR > 7/min). Call Rapid Response Team. PROTECT FROM LIGHT nebivolol (BYSTOLIC) tablet 10 mg Given 07/18/2017 10 mg 10 mg, Oral, TWICE DAILY, First dose on 20:48 CDT 07/18/17 at 2100, Until Discontinued, Hold for heart rate < 60 bpm, systolic BP < 90 or diastolic BP < 60 Given 07/19/2017 10 mg 08:17 CDT oxyCODONE (ROXICODONE, OXY-IR) tablet Given 07/19/2017 10 mg 5-10 mg 05:20 CDT 5-10 mg, Oral, EVERY 3 HOURS PRN, Starting 07/18/17 at 1358, Until 07/19/17 at 1715, Pain PO, Give for inadequate pain control with PNC. DISCONTINUE if conditional EVAPORATOR is initiated (use order mode "E-transcribe (no co-sign)") Given 07/19/2017 10 mg 08:23 CDT Given 07/19/2017 5 mg 14:58 CDT potassium chloride SR (K-DUR) tablet 20 Given 07/19/2017 20 mEq mEq 08:19 CDT 20 mEq, Oral, DAILY, First dose on 07/19/17 at 0900, Until Discontinued, - Tablet may be dispersed in water. Place tab in 30 mL of water for 40-60 seconds. - Gently swirl until fully dispersed. If particles remain after admin, add small amount of water and admin remaining content. - DO NOT CRUSH. Tablet may be split in half. ropivacaine (NAROPIN) 0.2% infusion Given - New 07/19/2017 (ON-Q pump CB004 / [id number]) Bag 14:21 CDT Peripheral Nerve Cath, CONTINUOUS, Starting 07/19/17 at 0845, Until 07/19/17 at 1715, 400 mL, Ropivacaine 0.2% Adjustable Basal Rate (Dial) No Bolus PNC (ON-Q CB004 or [id number]) PNC Location: Popliteal NOTE: When disposable pump becomes empty (unless otherwise specified): - If within 24hr from initiation (in OR/PACU), contact anesthesia for instructions. - If > 24hr from initiation (in OR/PACU), contact anesthesia for discontinuation. NOTE: This is a HIGH ALERT Medication. sodium chloride 0.9 % infusion Given - New 07/18/2017 100 mL/hr 1,000 mL, Intravenous, at 100 mL/hr, Bag 17:42 CDT CONTINUOUS, Starting Fri07/18/17 at 1700, Until Fri07/19/17 at 1715, -Decrease rate to 30 mL/hr when patient tolerating solid food -Discontinue IV and Lock IV when EVAPORATOR is discontinued thrombin 5,000 unit topical solution Given 07/18/2017 5,000 Units Ankle , Right INTRA-PROCEDURE MED, Starting Fri07/18/17 14:43 CDT at 1443, Until Fri07/18/17 at 1815, Intra-op timolol maleate (TIMOPTIC) 0.5 % Given 07/18/2017 1 drop ophthalmic drops 1 drop 20:58 CDT 1 drop, Both Eyes, DAILY, First dose on Fri07/18/17 at 2000, Until Discontinued Given 07/19/2017 1 drop 08:19 CDT in this encounter
--- OUTSIDE RECORDS SUMMARY | 2017-09-23 16:45 | XMS REPORT | Encounter Summary ---
Author Author [facility] Organization [facility] Address Unknown Phone Unavailable Care Team Providers Care Aircraft Engine Mechanic Name Role Phone Stepan Clemons MD Unavailable Vadim Waggoner MD PCP Reason for Visit * Auth/Cert Status Reason Specialty Diagnoses / Referred By Referred To Procedures Contact Contact Diagnoses Ankle arthritis Arthritis of left foot Ankle arthritis [M19.079] Arthritis of left foot [M19.072] P rocedures TX ARTHROPLASTY ANKLE W/IMPLANT TX REMOVAL IMPLANT DEEP TX ARTHRODESIS MIDTARSOMETATARS AL SINGLE JOINT ARTHROPLASTY REPLACEMENT TOTAL ANKLE ([facility] #[id number]) REMOVAL HARDWARE -DEEP REPAIR TALONAVICULAR JOINT NONUNION Encounter Details Date Type Department Care Team Description 07/18/2017 Hospital Ortho/Fam Med Stepan Clemons MD Ankle arthritis - Encounter [address] [facility] 07/19/2017 [address] [place] [address] [place] [address] [phone] Social History Tobacco Use Types Packs/Day Years [...] as of this encounter Discharge Summaries * Gabriel Oconnor MD - 07/19/2017 3:15 PM CDT [...] Procedure(s) (LRB): ARTHROPLASTY REPLACEMENT TOTAL ANKLE ([facility] #19130) (Right) REMOVAL HARDWARE -DEEP (Right) REPAIR TALONAVICULAR [...] your splint to get wet. Hemovac Drain [facility] care instructions: *WASH HANDS PRIOR TO ANY [...] Dr. Clemons in 1-2 weeks. Please call or [phone] with any questions. Provider STEPAN CLEMONS [[id number]] Location Orthopedic Clinic Opioid (Narcotic) Safety Information [...] 4:30 PM) Call the Orthopedic clinic at [phone] AFTER BUSINESS HOURS AND WEEKENDS Call [phone] and ask the dragsaw operator to page the on-call Orthopedic Resident. Discharging attending physician: STEPAN CLEMONS [[id number]] Current Discharge Medication List START taking these [...] with comments: ARTHROPLASTY REPLACEMENT TOTAL ANKLE ([facility] #[id number]) - CASE LENGTH 2 HOURS REMOVAL HARDWARE [...] anticipation of discharge today Anesthesia Pain pager: [phone] No Known Allergies Inpatient Medications Scheduled Meds: [...] drop Both Eyes QDAY Continuous Infusions: bupivacaine STRATEGY ASSOCIATE PNC 0.125% infusion syringe lactated ringers infusion 1,000 mL (07/18/17 1140) ropivacaine (NAROPIN) 0.2% infusion (ON-Q pump CB004 / [id number]) sodium chloride 0.9 % infusion 100 mL/hr [...] to participate in therapy;Patient encouraged to use STRATEGY ASSOCIATE/PNC (IV) Comments: PNC, Drain R LE Precautions: [...] ASSESSMENT NOTE Patient Name: Chano Azul Room/Bed: [place] [address] Admitting Diagnosis: Ankle arthritis [M19.079] Arthritis of [...] Bathroom Accessibility: Accessible via Walker Home Equipment: Walker;Hot Roll Inspector (4WW, ordred knee scooter) Prior Function Level Of [place]: Independent with ADLs and functional transfers; Independent [...] evaluation and clinical judgment. Therapist: PALAK Valdez/Lisa [id number] Date: 07/19/2017 * Gabriel Oconnor MD - [...] Date: 07/18/2017 Diane AC=Airway clearance AM=Aerosolized medication BA=Shawnee aerosol DB&C=Deep breathe & cough FEV1=Forced expiratory volume in first second) IC=Inspiratory capacity LE=Lung expansion MDI=Metered dose inhaler Neb=Nebulizer O2=Oxygen Oxim=Oximetry PEFR=Peak expiratory flow rate ANTIQUE CLOCK REPAIRER=Rapid Response Team * Yamini Slaughter RN - [...] of deep implants Dmitriy Hayes MD Pager [phone] [facility] Physical Note Admission [...] of deep implants Dmitriy Hayes MD Pager [phone] in this encounter Miscellaneous Notes * Patient Education - Shania Diaz RN - 07/19/2017 3:15 PM CDT Chano Azul accepted education and was engaged. she demonstrated understanding. The following was discussed: ALL DISCHARGE INSTRUCTIONS, ON-Q BALL, HEMOVAC DRAIN * Operative Report (DICTATED ONLY) - Stepan Clemons MD - 07/19/2017 3:15 PM CDT THE [address] [address] PATIENT NAME: CHANO AZUL MR#/PT#: [id number] Page 1 OPERATIVE REPORT DATE OF OPERATION: 07/18/2017 SURGEON: Stepan Clemons MD CREDIT ADJUSTER(S): Dmitriy Hayes MD. PREOPERATIVE DIAGNOSIS: 1. Right [...] amount of degenerative changes were identified. The [email or web address] patient-specific guides were utilized. This allowed the [...] for the exact sizing of the Shin Novaliq total ankle implant component. From the bone [...] disposal. Stepan Clemons MD GH / MEDQ /[id number] cc: - Stepan Clemons MD * Care [...] with comments: ARTHROPLASTY REPLACEMENT TOTAL ANKLE ([facility] #[id number]) - CASE LENGTH 2 HOURS REMOVAL HARDWARE [...] drop Both Eyes QDAY Continuous Infusions: bupivacaine STRATEGY ASSOCIATE PNC 0.125% infusion syringe lactated ringers infusion 1,000 mL (07/18/17 1140) ropivacaine (NAROPIN) 0.2% infusion (ON-Q pump CB004 / [id number]) sodium chloride 0.9 % infusion 100 mL/hr [...] Procedure(s) (LRB): ARTHROPLASTY REPLACEMENT TOTAL ANKLE ([facility] #[id number]) (Right) REMOVAL HARDWARE -DEEP (Right) REPAIR TALONAVICULAR [...] PACU - stable Mono Higuera MD Pager [phone] in this encounter Plan of Treatment Date [...] Address City/State/Zipcode Phone Number [facility] [address] [place] [address] * CBC AND DIFF (07/19/2017 3:42 AM) [...] Address City/State/Zipcode Phone Number [facility] [address] [place] [address] in this encounter Visit Diagnoses Diagnosis Ankle arthritis - Primary Unspecified arthropathy, ankle and foot Arthritis of [...] 0900, Pain Management Adjuvant Therapy for PNC STRATEGY ASSOCIATE. TOTAL ACETAMINOPHEN DOSE NOT TO EXCEED 4GM DAILY Given 07/19/2017 1,000 mg 08:17 CDT Given 07/19/2017 1,000 mg 14:58 CDT amLODIPine (NORVASC) tablet 10 mg Given 07/19/2017 10 mg 10 mg, Oral, DAILY, First dose on Sat 08:18 CDT 07/19/17 at 0900, Until Discontinued, NURSING: Please educate patient and document: Do not give with grapefruit juice. aspirin tablet 325 mg Given 07/19/2017 325 mg 325 mg, Oral, DAILY, First dose on Sat 08:18 CDT 07/19/17 at 0900, Until Discontinued bupivacaine STRATEGY ASSOCIATE PNC 0.125% infusion Given - New 07/19/2017 syringe Bag 05:30 CDT Peripheral Nerve Cath, STRATEGY ASSOCIATE, Starting Fri07/18/17 at 1500, Until Fri07/19/17 at 1715, PNC Location: Popliteal For INADEQUATE Pain Control (Pain score 4 or greater using Numeric Pain Scale 0-10, may be modified for chronic patients): - PNC STRATEGY ASSOCIATE Bolus Dose 0 mL x1 dose (Suggest for weight >50kg, 10mL bupivacaine 0.1%). - Increase continuous infusion to 0 mL/hr (Suggest bupivacaine 0.1% increase by 2 mL/hr). - Increase 1 hour limit to 0 mL. --FOR PERIPHERAL NERVE SHEATH CATHETER -- NOTE: This is a HIGH ALERT Medication. Dose/Rate Verify 07/19/2017 07:23 CDT Given - New Bag 07/19/2017 10:05 CDT ceFAZolin (ANCEF) IVP 2 g Given 07/18/2017 2 g 2 g, Intravenous, EVERY 8 HOURS, 2 22:39 CDT doses, First dose on Fri07/18/17 at 2200, Last dose on Fri07/19/17 at 0600, IV PUSH -- RECONSTITUTE each 1 g vial by adding 10 mL 0.9% NACL Given 07/19/2017 2 g 05:23 CDT cloNIDine (CATAPRESS) tablet 0.1 mg Given [...] BEDTIME DAILY, First 20:54 CDT dose on Fri07/18/17 at 2100, Until Discontinued, Swallow whole - DO NOT open or crush capsule fentaNYL citrate PF (SUBLIMAZE) Given 07/18/2017 25 mcg injection 25 mcg 17:20 CDT 25 mcg, Intravenous, EVERY 5 MIN PRN, Starting Fri07/18/17 at 1634, Until Fri07/18/17 at 1815, Pain Injectable, For Pain Score < 4, Maximum total dose of 200 mcg Hold for RR < 10 Given 07/18/2017 25 mcg 17:26 CDT Given 07/18/2017 25 mcg 17:38 CDT furosemide (LASIX) tablet 40 mg Given 07/19/2017 40 mg 40 mg, Oral, EVERY MORNING, First dose 08:17 CDT on 07/19/17 at 0900, Until Discontinued gabapentin (NEURONTIN) capsule 200 mg Given 07/18/2017 200 mg 200 mg, Oral, THREE TIMES DAILY, 6 20:54 CDT doses, First dose on Fri07/18/17 at 1500, Last dose on Fri07/20/17 at 0900, Pain Management Adjuvant Therapy for PNC STRATEGY ASSOCIATE. Given 07/19/2017 200 mg 08:17 CDT Given 07/19/2017 200 mg 14:58 CDT lactated ringers infusion Given - New 07/18/2017 1,000 mL 20 mL/hr 1,000 mL, 1,000 mL, Intravenous, at 20 Bag 11:40 CDT mL/hr, CONTINUOUS, Starting Fri07/18/17 at 1130, Until 07/19/17 at 1715, Pre-Op lisinopril (PRINIVIL; ZESTRIL) tablet 40 Given 07/19/2017 40 mg mg 08:18 CDT 40 mg, Oral, DAILY, First dose on 07/19/17 at 0900, Until Discontinued milk of magnesia (CONC) oral suspension Given 07/18/2017 10 mL 10 mL 20:48 CDT 10 mL, Oral, DAILY, First dose on Fri07/18/17 at 2100, Until Discontinued, Administer daily until patient has return of normal bowel function, then give daily PRN constipation. 10 mL CONC=30 mL MOM naloxone (NARCAN) injection 0.08 mg 0.08 mg, Intravenous, NEEDED, Starting 07/19/17 at 0936, Until 07/19/17 at 1715, Respiratory Depression, FOR RESPIRATORY RATE [...] TWICE DAILY, First dose on 20:48 CDT Fri07/18/17 at 2100, Until Discontinued, Hold for heart rate < 60 bpm, systolic BP < 90 or diastolic BP < 60 Given 07/19/2017 10 mg 08:17 CDT ondansetron (ZOFRAN ODT) rapid dissolve Given 07/18/2017 8 mg tablet 8 mg 12:29 CDT 8 mg, Oral, ONCE, 1 dose, Fri07/18/17 at 1230, Place on tongue and allow to dissolve. oxyCODONE (ROXICODONE, OXY-IR) tablet Given 07/18/2017 10 mg 5-10 mg 17:16 CDT 5-10 mg, Oral, ONCE PRN, 1 dose, Starting Fri07/18/17 at 1634, Until Fri07/18/17 at 1716, Pain PO, For Pain Score <4, PACU (only) oxyCODONE (ROXICODONE, OXY-IR) tablet Given 07/19/2017 10 mg 5-10 mg 05:20 CDT 5-10 mg, Oral, EVERY 3 HOURS PRN, Starting Fri07/18/17 at 1358, Until 07/19/17 at 1715, Pain PO, Give for inadequate pain control with PNC. DISCONTINUE if conditional STRATEGY ASSOCIATE is initiated (use order mode "E-transcribe (no [...] - New 07/19/2017 (ON-Q pump CB004 / [id number]) Bag 14:21 CDT Peripheral Nerve Cath, CONTINUOUS, Starting 07/19/17 at 0845, Until 07/19/17 at 1715, 400 mL, Ropivacaine 0.2% Adjustable Basal Rate (Dial) No Bolus PNC (ON-Q CB004 or [id number]) PNC Location: Popliteal NOTE: When disposable pump [...] CDT CONTINUOUS, Starting Fri07/18/17 at 1700, Until 07/19/17 at 1715, -Decrease rate to 30 mL/hr when patient tolerating solid food -Discontinue IV and Lock IV when STRATEGY ASSOCIATE is discontinued timolol maleate (TIMOPTIC) 0.5 % Given 07/18/2017 1 drop ophthalmic drops 1 drop 20:58 CDT 1 drop, Both Eyes, DAILY, First dose on Fri07/18/17 at 2000, Until Discontinued Given 07/19/2017 1 drop 08:19 CDT in this encounter
--- OUTSIDE RECORDS SUMMARY | 2017-09-23 16:45 | XMS REPORT | Encounter Summary ---
Author Author [facility] Organization [facility] Address Unknown Phone Unavailable Care Team Providers Care Security Delivery Specialist Name Role Phone Joao Mccabe MD Unavailable Vadim Waggoner MD PCP Reason for Visit * Reason Comments Other Encounter Details Date Type Department Care Team Description 06/26/2017 [facility] Joao Mccabe MD Other Physicians - Orthopedics [address] [facility] Orthopedics and Medical [address] [place] [address] [address] [facility] [phone] [place] [address] Social History Tobacco Use Types Packs/Day Years Used Date Never Smoker Smokeless Tobacco: Never Used Alcohol Use Drinks/Week oz/Week Comments No Sex Assigned at Date Recorded Not on file as of this encounter Miscellaneous Notes * Telephone Encounter - Daja Barrios RN - 06/26/2017 4:20 PM CDT Pre op assessment orders faxed to Dr. Rafael Clemens's office (fax [phone]) per Ms. Azul's request. in this encounter Plan of Treatment Date Type Specialty Care Team Description 09/16/2017 Procedure Pass Orthopedic Surgery as of this encounter Visit Diagnoses Not on filein this encounter
--- OUTSIDE RECORDS SUMMARY | 2017-09-23 16:45 | XMS REPORT | Encounter Summary ---
Author Author [facility] Organization [facility] Address Unknown Phone Unavailable Care Team Providers Care Financial Solutions Advisor Name Role Phone Joao Mccabe MD Unavailable Vadim Waggoner MD PCP Reason for Visit * Auth/Cert Status Reason Specialty Diagnoses / Referred By Referred To Procedures Contact Contact Diagnoses Ankle arthritis Arthritis of left foot Ankle arthritis [M19.079] Arthritis of left foot [M19.072] P rocedures MD ARTHROPLASTY ANKLE W/IMPLANT MD REMOVAL IMPLANT DEEP MD ARTHRODESIS MIDTARSOMETATARS AL SINGLE JOINT ARTHROPLASTY REPLACEMENT TOTAL ANKLE ([facility] #[id number]) REMOVAL HARDWARE -DEEP REPAIR TALONAVICULAR JOINT NONUNION Encounter Details Date Type Department Care Team Description 07/18/2017 Anesthesia Main Operating Room Rema Pak, [address] [facility] [address] [place] [address] [place] [address] [phone] Anesthesia Record Procedure Name Responsible Anesthesia Start Time Anesthesia Stop Time Anesthesiologist ARTHROPLASTY REPLACEMENT Nikki Albert MD 07/18/17 1352 07/18/17 1706 TOTAL ANKLE ([facility] #[id number]) (Right Ankle) Date Time Event Comment 1333 Block Placed 2018 1341 AN Equip Check 1352 Out of Pre Procedure 1352 Anes Start 1354 An Start Data 1354 In Room 1401 An Induction The patient was reevaluated immediately before moderate or deep sedation use and before anesthesia induction. 1404 An Intubation 1405 Anesthesia Ready 1406 Antibiotic Given 1425 An Tourn Inflated 1431 Proc Start 1643 An Tourn Deflated 1658 An Extubation 1658 an stop data 1658 Handoff to RN I completed my SBAR handoff to the receiving nurse. 1706 An Stop Meds Name Total fentaNYL PF (SUBLIMAZE) injection 175 mcg lidocaine (2%) 200 mg/10mL Injection 70 mg syringe propofol (DIPRIVAN) 200 mg/ 20 mL 110 mg injection (VIAL) dexamethasone (DECADRON) 4 mg/mL 4 mg injection phenylephrine (RASHAD-SYNEPHRINE) 0.1 mg/mL 300 mcg injection (SYRINGE) ropivacaine (PF) 0.5% (NAROPIN) 45 mL injection ceFAZolin (ANCEF) injection 2 g rocuronium (ZEMURON) injection 40 mg sugammadex (BRIDION) 100 mg/mL iv soln 163 mg lactated ringers infusion 700 mL * Name O2 N2O Inspired N2O Air Sevoflurane Inspired Sevoflurane * No blood administrations on file. Type Details Placement Removal Peripheral 07/18/17; 1139; RN; R; Lower; Forearm; 07/18/17 1139 by Diana , 07/19/17 1400 by Joe IV 22 G; 2; Therapy completed; 07/19/17; YASMANI Torres RN 1400 Peripheral 07/18/17; 1334 (created via procedure 07/18/17 1334 by Rikki, 08/22/17 1610 by Zen, Nerve documentation); R; 18 G; 08/22/17; 1610 MD Qian Peterson, YASMANI Catheter ETT 07/18/17; 1404; Ventilated by mask (1); 07/18/17 1404 by Shin, 09/27 1658 by Kip, Direct laryngoscopy, Stylet; KHUSHBU Schwarz CRNA Single-Lumen, Cuffed; 7mm; Mac; 3; Oral; 1-Full view of the glottis; 1 insertion attempt; Auscultation, ETCO2 Detector; 20 centimeters; 07/18/17; 1658 Hemovac 07/18/17; 1618; Right, Lower; Leg; 10 07/18/17 1618 by Marie, 08/23/17 1456 by Sam, Drain FR; 08/23/17; 1456 YASMANI Snyder RN Wounds 07/18/17; 1624; Leg; Surgical Incision; 07/18/17 1624 by Marie, 08/23/17 1456 by Sam, (NOT for 08/23/17; 1456; RUDOLPH ,DERMABOND YASMANI Snyder, RN Pressure PRINEO, BETADINE SOAKED ADAPTIC, 4X4s, Injuries) SOFTROLL, VIZCARRA ROLL, DILEEP, SPLINT, HANDY WRAP in this encounter Social History Tobacco Use Types Packs/Day Years Used Date Never Smoker Smokeless Tobacco: Never Used Alcohol Use Drinks/Week oz/Week Comments No Sex Assigned at Date Recorded Not on file as of this encounter OR Notes * Anesthesia Postprocedure Evaluation - Rosaline Walker MD - 07/18/2017 5:59 PM CDT Post-Anesthesia Evaluation Name: Steff Azul : 1945 Age: 72 y.o. Sex : female Procedure Date: 07/18/2017 Procedure: Procedure(s) with comments: ARTHROPLASTY REPLACEMENT TOTAL ANKLE ([facility] #[id number]) - CASE LENGTH 2 HOURS REMOVAL HARDWARE -DEEP REPAIR TALONAVICULAR JOINT NONUNION Surgeon: Surgeon(s): Nikki Higuera MD Horton, Greg, MD Morris, Brandon L, MD Post-Anesthesia Vitals BP: (136-150)/(66-75) Temp: [36.4 C (97.5 F)-36.5 C (97.7 F)] Pulse: [66-69] Respirations: [12 PER MINUTE-19 PER MINUTE] SpO2: [93 %-99 %] O2 Delivery: Nasal Cannula (07/18 1745) SpO2 Pulse: [67-69] Post Anesthesia Evaluation Note Evaluation location: pre/post Patient participation: recovered; patient participated in evaluation Level of consciousness: alert Pain score: 2 Pain management: adequate Hydration: normovolemia Temperature: 36.0C - 38.4C Airway patency: adequate Regional/Neuraxial: Neurological status: sensory deficit and motor deficit Peripheral nerve catheter in place Perioperative Events Perioperative events: no Post-op nausea and vomiting: no PONV Postoperative Status Cardiovascular status: hemodynamically stable Respiratory status: spontaneous ventilation and supplemental oxygen (2 L NC ( Home O2 level)) Perioperative Events Perioperative Event: No Emergency Case Activation: No Associated attestation - Gabriel Gong MD - 07/18/2017 7:21 PM CDT Formatting of this note may be different from the original. ATTESTATION: Post-Anesthesia Evaluation Attestation: I reviewed and agree the indicated post- anesthesia care was provided. Gabriel Gong MD Pager [phone] * Anesthesia Procedure Notes - Nikki Albert MD - 07/18/2017 1:54 PM CDT Associated Order(s): ANESTHESIA PERIPHERAL NERVE BLOCK [...] NICHOLAS BOATENG Authorized by: NIKKI ALBERT * Anesthesia Procedure Notes - Nicholas Boateng MD - 07/18/2017 1:53 PM CDT Associated Order(s): ANESTHESIA PERIPHERAL NERVE BLOCK [...] by: NICHOLAS BOATENG Authorized by: NIKKI ALBERT Associated attestation - Nikki Albert MD - 07/23/2017 1:50 PM CDT Formatting of this note may be different from the original. ATTESTATION I was present during the entire procedure performed by a resident Staff name: Nikki Albert MD Date: 07/23/2017 * Anesthesia Preprocedure Evaluation - Vanessa Waters MD - 07/18/2017 12:13 PM CDT Formatting of this note may be different from the original. Anesthesia Pre-Procedure Evaluation Name: Steff Azul : 1945 Age: 72 y.o. Sex : female Procedure Date: 07/18/2017 Procedure: Procedure(s) with comments: ARTHROPLASTY REPLACEMENT TOTAL ANKLE ([facility] #[id number]) - CASE LENGTH 2 HOURS REMOVAL HARDWARE -DEEP REPAIR TALONAVICULAR JOINT NONUNION Physical Assessment Vital Signs (last filed in past 24 hours): BP: 154/76 (07/18 1130) Temp: 36.5 C (97.7 F) (06/08 1130) Pulse: 65 (07/18 1129) Respirations: 17 PER MINUTE (07/18 1129) SpO2: 100 % (07/18 1129) O2 Delivery: None (Room Air) (07/18 1129) Height: 167.6 cm (66") (07/18 1129) Weight: 81.5 kg (179 lb 10.8 oz) (07/18 1129) Patient History No Known Allergies Current Medications [...] Drop into or around eye(s) twice daily. duloxetine DR (CYMBALTA) 60 mg capsule Take [...] Drop to both eyes at bedtime daily. potassium chloride SR (K-DUR) 20 mEq tablet Take 20 mEq by mouth daily. Take with a meal and a full glass of water. timolol (TIMOPTIC) 0.5 % ophthalmic solution Apply 1 Drop to both eyes daily. traMADol (ULTRAM) 50 mg tablet Take 50 mg by mouth daily. Review of Systems/Medical History Patient summary reviewed Nursing notes reviewed Pertinent labs reviewed PONV Screening: Female gender and Non-smoker No history of anesthetic complications No family history of anesthetic complications Airway - negative Pulmonary Home oxygen use (at night when sleeping. 2 L. had sleep study, no obstruction) Cardiovascular Recent diagnostic studies: echocardiogram and stress test At OSH- neg per pt and normal EF Exercise tolerance: >4 METS Beta Noa therapy: Yes Beta blockers within 24 hours: Yes Hypertension, well controlled GI/Hepatic/Renal No GERD, Neuro/Psych - negative Musculoskeletal Back pain Arthritis Endocrine/Other - negative Physical Exam Airway Findings Mallampati: I TM distance: >3 FB Neck ROM: full Mouth opening: good Airway patency: adequate Dental Findings: Negative Cardiovascular Findings: Negative Pulmonary Findings: Negative Neurological Findings: Negative Diagnostic Tests Hematology: No results found for: HGB, HCT, PLTCT, WBC, NEUT, ANC, LYMPH, ALC, ABSLYMPHCT, BENJAMIN, AMC, EOSA, ABC, BASOPHILS, MCV, MCH, MCHC, MPV, RDW General Chemistry: No results found for: NA, K, CL, CO2, GAP, BUN, CR, GLU, CA, KETONES, ALBUMIN, LACTIC, OBSCA, MG, TOTBILI, TOTBILCB, PO4 Coagulation: No results found for: PT, PTT, INR Anesthesia Plan ASA score: 3 Plan: general and regional for postoperative pain Induction method: intravenous NPO status: acceptable Comments: (OSH labs reviewed) Informed Consent Anesthetic plan and risks discussed with patient. Use of blood products discussed with patient; consented to blood products. Plan discussed with: anesthesiologist and SUPERVISOR [employer]AMING [employer]. in this encounter Miscellaneous Notes * Addendum Note - Nikki Albert MD - 07/23/2017 1:50 PM CDT Formatting of this note may be different from the original. Addendum created 07/23/17 1350 by Nikki Albert MD Cosign clinical note with attestation, Sign clinical note in this encounter Plan of Treatment Date Type Specialty Care Team Description 09/16/2017 Procedure Pass Orthopedic Surgery as of this encounter Results * ANESTHESIA PERIPHERAL NERVE BLOCK (07/18/2017 6:53 [...] by: NICHOLAS BOATENG Authorized by: NIKKI ALBERT in this encounter Visit Diagnoses Not on filein this encounter Administered Medications Medication Order MAR Action Action Date Dose Rate Site ceFAZolin (ANCEF) injection Given 07/18/2017 2 g INTRA-PROCEDURE MED, Starting Fri07/18/17 14:06 CDT at 1424, Until Fri07/18/17 at 1706, Anesthesia Intra-op dexamethasone (DECADRON) injection Given 07/18/2017 4 mg Intravenous, INTRA-PROCEDURE MED, 14:44 CDT Starting Fri07/18/17 at 1444, Until Fri07/18/17 at 1706, Nausea/Vomiting Injectable, Anesthesia Intra-op fentaNYL citrate PF (SUBLIMAZE) Given 07/18/2017 75 mcg injection 13:58 CDT INTRA-PROCEDURE MED, Starting Fri07/18/17 at 1358, Until Fri07/18/17 at 1706, Pain Injectable, Anesthesia Intra-op Given 07/18/2017 50 mcg 15:56 CDT Given 07/18/2017 50 mcg 16:29 CDT lidocaine (PF) injection Given 07/18/2017 70 mg INTRA-PROCEDURE MED, Starting Fri07/18/17 13:58 CDT at 1358, Until Fri07/18/17 at 1706, Anesthesia Intra-op phenylephrine in NS injection syringe Given 07/18/2017 50 mcg Intravenous, INTRA-PROCEDURE MED, 15:21 CDT Starting Fri07/18/17 at 1505, Until Fri07/18/17 at 1706, Symptomatic Hypotension, Anesthesia Intra-op Given 07/18/2017 50 mcg 15:41 CDT Given 07/18/2017 50 mcg 15:42 CDT propofol (DIPRIVAN) injection Given 07/18/2017 110 mg INTRA-PROCEDURE MED, Starting Fri07/18/17 14:01 CDT at 1406, Until Fri07/18/17 at 1706, Anesthesia Intra-op rocuronium (ZEMURON) injection Given 07/18/2017 40 mg INTRA-PROCEDURE MED, Starting Fri07/18/17 14:01 CDT at 1401, Until Fri07/18/17 at 1706, Anesthesia Intra-op ropivacaine (PF) (NAROPIN) 0.5% (5 Given 07/18/2017 30 mL mg/mL) injection 13:34 CDT INTRA-PROCEDURE MED, Starting Fri07/18/17 at 1334, Until Fri07/18/17 at 1706, Anesthesia Intra-op Given 07/18/2017 15 mL 13:36 CDT sugammadex (BRIDION) injection Given 07/18/2017 163 mg INTRA-PROCEDURE MED, Starting Fri07/18/17 16:48 CDT at 1648, Until Fri07/18/17 at 1706, Anesthesia Intra-op in this encounter
--- OUTSIDE RECORDS SUMMARY | 2017-09-23 16:45 | XMS REPORT | Encounter Summary ---
Author Author [facility] Organization [facility] Address Unknown Phone Unavailable Care Team Providers Care Carpenter Repairer Name Role Phone Joao Mccabe MD Unavailable Vadim Waggoner MD PCP Encounter Details Date Type Department Care Team Description 06/30/2017 Prep for Case [facility] Joao Mccabe MD Ankle arthritis (Primary Physicians - Orthopedics [address] Dx); Orthopedics and Medical [address] Arthritis of left [place] [address] [address] [facility] [phone] [place] [address] Social History Tobacco Use Types [...]
--- OUTSIDE RECORDS SUMMARY | 2017-09-23 16:47 | XMS REPORT | Continuity of Care Document ---
Author Author [facility] Organization [facility] Address Unknown Phone Unavailable Allergies Active Description Code Type Severity Reaction Onset Reported/Identified Relationship to Patient Clinical Status Yes No Known Drug Allergies [id number] Drug Allergy Unknown N/A 10/31/2015 Medications There is no data. Problems Date Dx Coded Attending Type Code Diagnosis Diagnosed By 01/09/1210 HARRY BETTS MD Ot M54.32 SCIATICA, LEFT SIDE 01/09/1330 LILIANA SANTANA DO Ot M54.16 RADICULOPATHY, LUMBAR REGION 08/12/2013 HARRY BETTS MD Ot V43.65 KNEE JOINT REPLACEMENT STATUS 08/12/2013 HARRY BETTS MD Ot V54.81 AFTERCARE FOLLOWING JOINT REPLACEMENT 08/12/2013 HARRY BETTS MD Ot V57.1 PHYSICAL THERAPY NEC 09/24/2013 HARRY BETTS MD Ot 724.3 SCIATICA 09/24/2013 HARRY BETTS MD Ot V57.1 PHYSICAL THERAPY NEC 05/12/2014 Ot V76.12 05/12/2014 Ot 959.6 05/12/2014 Ot E000.8 05/12/2014 Ot E849.6 05/12/2014 Ot E888.9 05/12/2014 Ot 959.6 05/12/2014 Ot E000.8 05/12/2014 Ot E849.6 05/12/2014 Ot E888.9 05/12/2014 Ot 808.2 05/12/2014 Ot E000.8 05/12/2014 Ot E849.6 05/12/2014 Ot E888.9 05/12/2014 Ot 719.45 05/12/2014 Ot 808.49 05/12/2014 Ot E000.8 05/12/2014 Ot E928.9 05/12/2014 BRIANA WEBER MD Ot 272.4 05/12/2014 BRIANA WEBER MD Ot 433.10 05/12/2014 BRIANA WEBER MD Ot 733.90 05/12/2014 TIA PISANO, BRIANA Esposito Ot 793.82 05/12/2014 TIA PISANO, BRIANA Esposito Ot V76.12 05/12/2014 TIA PISANO, BRIANA Esposito Ot 793.80 05/12/2014 TIA PISANO, BRIANA Esposito Ot V76.12 05/12/2014 ROXANE PISANO, HARRY Gonzalez Ot 729.5 05/12/2014 ROXANE PISANO, HARRY Gonzalez Ot 729.81 05/12/2014 ROXANE PISANO, HARRY Gonzalez Ot 782.3 05/12/2014 TIA PISANO, BRIANA Esposito Ot V76.12 07/01/2014 RALPH PISANO, BASILIA Eldridge Ot 433.10 07/10/2014 TIA PISANO, BRIANA Esposito Ot V76.12 07/27/2014 RALPH PISANO, BASILIA Eldridge Ot 433.10 05/24/2015 RALPH PISANO, BASILIA Eldridge Ot Z12.31 06/06/2015 ROXANE PISANO, HARRY Gonzalez Ot M54.32 SCIATICA, LEFT SIDE 2015 RALPH PISANO, BASILIA Eldridge Ot Z12.31 ENCNTR SCREEN MAMMOGRAM FOR MALIGNANT NE 11/02/2015 FABIANA BARRIOS MD Ot E04.1 NONTOXIC SINGLE THYROID NODULE 11/02/2015 FABIANA BARRIOS MD Ot E83.52 HYPERCALCEMIA 11/02/2015 FABIANA BARRIOS MD Ot E87.6 HYPOKALEMIA 11/02/2015 FABIANA BARRIOS MD Ot I10 ESSENTIAL (PRIMARY) HYPERTENSION 11/02/2015 FABIANA BARRIOS MD Ot M35.00 SICCA SYNDROME, UNSPECIFIED 11/02/2015 FABIANA BARRIOS MD Ot 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.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 11/02/2015 FABIANA BARRIOS MD Ot Z98.1 ARTHRODESIS STATUS 11/03/2015 Ot V76.12 OTH SCREEN MAMMO-MALIGN NEOPLASM OF [place] 11/03/2015 Ot 959.6 HIP THIGH INJURY NOS 11/03/2015 Ot E000.8 OTHER EXTERNAL CAUSE STATUS 11/03/2015 Ot E849.6 ACCIDENT IN PUBLIC BLDG 11/03/2015 Ot E888.9 FALL NOS 11/03/2015 Ot 959.6 HIP THIGH INJURY NOS 11/03/2015 Ot E000.8 OTHER EXTERNAL CAUSE STATUS 11/03/2015 Ot E849.6 ACCIDENT IN PUBLIC BLDG 11/03/2015 Ot E888.9 FALL NOS 11/03/2015 Ot 808.2 FRACTURE OF PUBIS-CLOSED 11/03/2015 Ot E000.8 OTHER EXTERNAL CAUSE STATUS 11/03/2015 Ot E849.6 ACCIDENT IN PUBLIC BLDG 11/03/2015 Ot E888.9 FALL NOS 11/03/2015 Ot 719.45 JOINT PAIN- PELVIS 11/03/2015 Ot 808.49 PELVIC FRACTURE NEC-CLOS 11/03/2015 Ot E000.8 OTHER EXTERNAL CAUSE STATUS 11/03/2015 Ot E928.9 ACCIDENT NOS 11/03/2015 BRIANA WEBER MD Ot 272.4 HYPERLIPIDEMIA NEC/NOS 11/03/2015 BRIANA WEBER MD Ot 433.10 CAROTID ARTERY OCCLUSION W O CEREBRAL IN 11/03/2015 BRIANA WEBER MD Ot 733.90 BONE CARTILAGE DIS NOS 11/03/2015 BRIANA WEBER MD Ot 793.82 INCONCLUSIVE MAMMOGRAM 11/03/2015 BRIANA WEBER MD Ot V76.12 OTH SCREEN MAMMO-MALIGN NEOPLASM OF [place] 11/03/2015 BRIANA WEBER MD Ot 793.80 UNSPEC ABNORMAL MAMMOGRAM 11/03/2015 BRIANA WEBER MD Ot V76.12 OTH SCREEN MAMMO-MALIGN NEOPLASM OF [place] 11/03/2015 HARRY BETTS MD Ot 729.5 PAIN IN LIMB 11/03/2015 HARRY BETTS MD Ot 729.81 SWELLING OF LIMB 11/03/2015 HARRY BETTS MD Ot 782.3 EDEMA 11/03/2015 BRIANA WEBER MD Ot V76.12 OTH SCREEN MAMMO-MALIGN NEOPLASM OF [place] 11/03/2015 BRIANA WEBER MD Ot V76.12 OTH SCREEN MAMMO-MALIGN NEOPLASM OF [place] 11/03/2015 BASILIA RSOAS MD Ot 433.10 CAROTID ARTERY OCCLUSION W O CEREBRAL IN 11/03/2015 BASILIA ROSAS MD Ot Z12.31 ENCNTR SCREEN MAMMOGRAM FOR MALIGNANT NE 11/14/2015 [facility] FACC, ALI FACP CCDS Ot I10 ESSENTIAL (PRIMARY) HYPERTENSION 11/14/2015 [facility] FACC, ALI FACP CCDS Ot I34.1 NONRHEUMATIC MITRAL (VALVE) PROLAPSE 11/14/2015 [facility] FACC, [facility] CCDS Ot R06.02 SHORTNESS OF BREATH 11/14/2015 TRELL MADRID MD, FACC CCDS Ot Z79.899 OTHER NURSING HOME (CURRENT) DRUG THERAPY 11/15/2015 Ot V76.12 OTH SCREEN MAMMO-MALIGN NEOPLASM OF [place] 11/15/2015 Ot 959.6 HIP THIGH INJURY NOS 11/15/2015 Ot E000.8 OTHER EXTERNAL CAUSE STATUS 11/15/2015 Ot E849.6 ACCIDENT IN PUBLIC BLDG 11/15/2015 Ot E888.9 FALL NOS 11/15/2015 Ot 959.6 HIP THIGH INJURY NOS 11/15/2015 Ot E000.8 OTHER EXTERNAL CAUSE STATUS 11/15/2015 Ot E849.6 ACCIDENT IN PUBLIC BLDG 11/15/2015 Ot E888.9 FALL NOS 11/15/2015 Ot 808.2 FRACTURE OF PUBIS-CLOSED 11/15/2015 Ot E000.8 OTHER EXTERNAL CAUSE STATUS 11/15/2015 Ot E849.6 ACCIDENT IN PUBLIC BLDG 11/15/2015 Ot E888.9 FALL NOS 11/15/2015 Ot 719.45 JOINT PAIN- PELVIS 11/15/2015 Ot 808.49 PELVIC FRACTURE NEC-CLOS 11/15/2015 Ot E000.8 OTHER EXTERNAL CAUSE STATUS 11/15/2015 Ot E928.9 ACCIDENT NOS 11/15/2015 BRIANA WEBER MD Ot 272.4 HYPERLIPIDEMIA NEC/NOS 11/15/2015 BRIANA WEBER MD Ot 433.10 CAROTID ARTERY OCCLUSION W O CEREBRAL IN 11/15/2015 BRIANA WEBER MD Ot 733.90 BONE CARTILAGE DIS NOS 11/15/2015 BRIANA WEBER MD Ot 793.82 INCONCLUSIVE MAMMOGRAM 11/15/2015 BRIANA WEBER MD Ot V76.12 OTH SCREEN MAMMO-MALIGN NEOPLASM OF [place] 11/15/2015 BRIANA WEBER MD Ot 793.80 UNSPEC ABNORMAL MAMMOGRAM 11/15/2015 BRIANA WEBER MD Ot V76.12 OTH SCREEN MAMMO-MALIGN NEOPLASM OF [place] 11/15/2015 ROXANE PISANO, HARRY Gonzalez Ot 729.5 PAIN IN LIMB 11/15/2015 HARRY BETTS MD Ot 729.81 SWELLING OF LIMB 11/15/2015 HARRY BETTS MD Ot 782.3 EDEMA 11/15/2015 BRIANA WEBER MD Ot V76.12 OTH SCREEN MAMMO-MALIGN NEOPLASM OF [place] 11/15/2015 BRIANA WEBER MD Ot V76.12 OTH SCREEN MAMMO-MALIGN NEOPLASM OF [place] 11/15/2015 BASILIA ROSAS MD Ot 433.10 CAROTID ARTERY OCCLUSION W O CEREBRAL IN 11/15/2015 BASILIA ROSAS MD Ot Z12.31 ENCNTR SCREEN MAMMOGRAM FOR MALIGNANT NE 11/16/2015 Ot V76.12 OTH SCREEN MAMMO-MALIGN NEOPLASM OF [place] 11/16/2015 Ot 959.6 HIP THIGH INJURY NOS 11/16/2015 Ot E000.8 OTHER EXTERNAL CAUSE STATUS 11/16/2015 Ot E849.6 ACCIDENT IN PUBLIC BLDG 11/16/2015 Ot E888.9 FALL NOS 11/16/2015 Ot 959.6 HIP THIGH INJURY NOS 11/16/2015 Ot E000.8 OTHER EXTERNAL CAUSE STATUS 11/16/2015 Ot E849.6 ACCIDENT IN PUBLIC BLDG 11/16/2015 Ot E888.9 FALL NOS 11/16/2015 Ot 808.2 FRACTURE OF PUBIS-CLOSED 11/16/2015 Ot E000.8 OTHER EXTERNAL CAUSE STATUS 11/16/2015 Ot E849.6 ACCIDENT IN PUBLIC BLDG 11/16/2015 Ot E888.9 FALL NOS 11/16/2015 Ot 719.45 JOINT PAIN- PELVIS 11/16/2015 Ot 808.49 PELVIC FRACTURE NEC-CLOS 11/16/2015 Ot E000.8 OTHER EXTERNAL CAUSE STATUS 11/16/2015 Ot E928.9 ACCIDENT NOS 11/16/2015 BRIANA WEBER MD Ot 272.4 HYPERLIPIDEMIA NEC/NOS 11/16/2015 BRIANA WEBER MD Ot 433.10 CAROTID ARTERY OCCLUSION W O CEREBRAL IN 11/16/2015 BRIANA WEBER MD Ot 733.90 BONE CARTILAGE DIS NOS 11/16/2015 BRIANA WEBER MD Ot 793.82 INCONCLUSIVE MAMMOGRAM 11/16/2015 BRIANA WEBER MD Ot V76.12 OTH SCREEN MAMMO-MALIGN NEOPLASM OF [place] 11/16/2015 BRIANA WEBRE MD Ot 793.80 UNSPEC ABNORMAL MAMMOGRAM 11/16/2015 BRIANA WEBER MD Ot V76.12 OTH SCREEN MAMMO-MALIGN NEOPLASM OF [place] 11/16/2015 HARRY BETTS MD Ot 729.5 PAIN IN LIMB 11/16/2015 HARRY BETTS MD Ot 729.81 SWELLING OF LIMB 11/16/2015 HARRY BETTS MD Ot 782.3 EDEMA 11/16/2015 BRIANA WEBER MD Ot V76.12 OTH SCREEN MAMMO-MALIGN NEOPLASM OF [place] 11/16/2015 BRIANA WEBER MD Ot V76.12 OTH SCREEN MAMMO-MALIGN NEOPLASM OF [place] 11/16/2015 BASILIA ROSAS MD Ot 433.10 CAROTID ARTERY OCCLUSION W O CEREBRAL IN 11/16/2015 BASILIA ROSAS MD Ot Z12.31 ENCNTR SCREEN MAMMOGRAM FOR MALIGNANT NE 11/17/2015 DUSTIN DUARTE APRN Ot R06.09 OTHER FORMS OF DYSPNEA 11/17/2015 DUSTIN DUARTE APRN Ot R53.83 OTHER FATIGUE 11/29/2015 [facility] FACC, ALI FACP CCDS Ot I10 ESSENTIAL (PRIMARY) HYPERTENSION 11/29/2015 [facility] FACC, ALI FACP CCDS Ot I34.1 NONRHEUMATIC MITRAL (VALVE) PROLAPSE 11/29/2015 [facility] FACC, ALI FACP CCDS Ot R06.02 SHORTNESS OF BREATH 11/29/2015 [facility] FACC, ALI FACP CCDS Ot Z79.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 12/06/2015 DUSTIN DUARTE APRN Ot R06.09 OTHER FORMS OF DYSPNEA 12/06/2015 DUSTIN DUARTE ICE SKATER Ot R53.83 OTHER FATIGUE 02/08/2016 BASILIA ROSAS MD Ot E04.1 NONTOXIC SINGLE THYROID NODULE 03/01/2016 BASILIA ROSAS MD Ot E04.1 NONTOXIC SINGLE THYROID NODULE 03/06/2016 BASILIA ROSAS MD Ot E04.1 NONTOXIC SINGLE THYROID NODULE 03/27/2016 SONIDO ROSARIO APRN Ot G47.33 OBSTRUCTIVE SLEEP APNEA (ADULT) (PEDIATR 03/28/2016 SONIDO ROSARIO APRN Ot G47.10 HYPERSOMNIA, UNSPECIFIED 03/28/2016 SONIDO ROSARIO ICE SKATER Ot I50.9 HEART FAILURE, UNSPECIFIED 03/28/2016 SONIDO ROSARIO ICE SKATER Ot R06.83 SNORING 03/28/2016 SONIDO ROSARIO ICE SKATER Ot G47.10 HYPERSOMNIA, UNSPECIFIED 03/28/2016 SONIDO ROSARIO ICE SKATER Ot I50.9 HEART FAILURE, UNSPECIFIED 03/28/2016 SONIDO ROSARIO ICE SKATER Ot R06.83 SNORING 04/02/2016 SONIDO ROSARIO ICE SKATER Ot G47.10 HYPERSOMNIA, UNSPECIFIED 04/02/2016 SONIDO ROSARIO ICE SKATER Ot I50.9 HEART FAILURE, UNSPECIFIED 04/02/2016 SONIDO ROSARIO ICE SKATER Ot R06.83 SNORING 05/28/2016 RALPH PISANO, BASILIA Eldridge Ot Z12.31 ENCNTR SCREEN MAMMOGRAM FOR MALIGNANT NE 05/28/2016 BASILIA ROSAS MD Ot Z12.31 ENCNTR SCREEN MAMMOGRAM FOR MALIGNANT NE 05/28/2016 BASILIA ROSAS MD Ot Z12.31 ENCNTR SCREEN MAMMOGRAM FOR MALIGNANT NE 05/28/2016 BASILIA ROSAS MD Ot Z12.31 ENCNTR SCREEN MAMMOGRAM FOR MALIGNANT NE 05/28/2016 BASILIA ROSAS MD Ot Z12.31 ENCNTR SCREEN MAMMOGRAM FOR MALIGNANT NE 06/03/2016 BASILIA ROSAS MD Ot Z12.31 ENCNTR SCREEN MAMMOGRAM FOR MALIGNANT NE 06/24/2016 BASILIA ROSAS MD Ot Z12.31 ENCNTR SCREEN MAMMOGRAM FOR MALIGNANT NE 04/18/2017 LILIANA SANTANA DO Ot M54.16 RADICULOPATHY, LUMBAR REGION 04/23/2017 LAURY SHERMAN Ot M54.16 RADICULOPATHY, LUMBAR REGION 05/13/2017 LAURY SHERMAN Ot M54.16 RADICULOPATHY, LUMBAR REGION 05/15/2017 LAURY SHERMAN Ot M54.16 RADICULOPATHY, LUMBAR REGION 06/04/2017 LILIANA SANTANA DO Ot M54.16 RADICULOPATHY, LUMBAR REGION 06/04/2017 LILIANA SANTANA DO Ot M54.16 RADICULOPATHY, LUMBAR REGION 06/05/2017 CRISTIAN SHEPARD ICE SKATER Ot Z12.31 ENCNTR SCREEN MAMMOGRAM FOR MALIGNANT NE 06/05/2017 CRISTIAN SHEPARD ICE SKATER Ot Z12.31 ENCNTR SCREEN MAMMOGRAM FOR MALIGNANT NE 06/11/2017 BAIMA, CARI L DOLL REPAIRER Ot I10 ESSENTIAL (PRIMARY) HYPERTENSION 06/11/2017 BAIMA, CARI L DOLL REPAIRER Ot I34.1 NONRHEUMATIC MITRAL (VALVE) PROLAPSE 06/11/2017 BAIMA, CARI L DOLL REPAIRER Ot R06.09 OTHER FORMS OF DYSPNEA 06/25/2017 CRISTIAN SHEPARD ICE SKATER Ot Z12.31 ENCNTR SCREEN MAMMOGRAM FOR MALIGNANT NE 07/01/2017 STEPAN CLEMONS MD Ot Z01.818 ENCOUNTER FOR OTHER PREPROCEDURAL EXAMIN 07/01/2017 BAIMA, CARI L DOLL REPAIRER Ot I10 ESSENTIAL (PRIMARY) HYPERTENSION 07/01/2017 BAIMA, CARI L DOLL REPAIRER Ot I34.1 NONRHEUMATIC MITRAL (VALVE) PROLAPSE 07/01/2017 BAIMA, CARI L DOLL REPAIRER Ot R06.09 OTHER FORMS OF DYSPNEA 07/09/2017 BAIMA, CARI L DOLL REPAIRER Ot I10 ESSENTIAL (PRIMARY) HYPERTENSION 07/09/2017 BAIMA, CARI L DOLL REPAIRER Ot I34.1 NONRHEUMATIC MITRAL (VALVE) PROLAPSE 07/09/2017 BAIMA, CARI L DOLL REPAIRER Ot R06.09 OTHER FORMS OF DYSPNEA 07/16/2017 BAIMA, CARI L DOLL REPAIRER Ot I10 ESSENTIAL (PRIMARY) HYPERTENSION 07/16/2017 BAIMA, CARI L DOLL REPAIRER Ot I34.1 NONRHEUMATIC MITRAL (VALVE) PROLAPSE 07/16/2017 BAIMA, CARI L DOLL REPAIRER Ot R06.09 OTHER FORMS OF DYSPNEA 07/23/2017 STEPAN CLEMONS MD Ot Z01.818 ENCOUNTER FOR OTHER PREPROCEDURAL EXAMIN 07/24/2017 BAIMA, CARI L DOLL REPAIRER Ot I10 ESSENTIAL (PRIMARY) HYPERTENSION 07/24/2017 BAIMA, CARI L DOLL REPAIRER Ot I34.1 NONRHEUMATIC MITRAL (VALVE) PROLAPSE 07/24/2017 BAIMA, CARI L DOLL REPAIRER Ot R06.09 OTHER FORMS OF DYSPNEA 07/30/2017 STEPAN CLEMONS MD Ot Z01.818 ENCOUNTER FOR OTHER PREPROCEDURAL EXAMIN Procedures There is no data. Results Test Result Range Complete blood count (CBC) with automated white blood cell (WBC) differential - 10/31/15 15:00 Blood leukocytes automated count (number/volume) 5.9 10*3/uL 4.3-11.0 Blood erythrocytes automated count (number/volume) 4.46 10*6/uL 4.35-5.85 Venous blood hemoglobin measurement (mass/volume) 13.2 g/dL 11.5-16.0 Blood hematocrit (volume fraction) 39 % 35-52 Automated erythrocyte mean corpuscular volume 87 [foz_us] 80-99 Automated erythrocyte mean corpuscular hemoglobin (mass per erythrocyte) 30 pg 25-34 Automated erythrocyte mean corpuscular hemoglobin concentration measurement ( mass/volume) 34 g/dL 32-36 Automated erythrocyte distribution width ratio 12.4 % 10.0-14.5 Automated blood platelet count (count/volume) 409 10*3/uL 130-400 Automated blood platelet mean volume measurement 8.8 [foz_us] 7.4-10.4 Automated blood neutrophils/100 leukocytes 74 % 42-75 Automated blood lymphocytes/100 leukocytes 14 % 12-44 Blood monocytes/100 leukocytes 12 % 0-12 Automated blood eosinophils/100 leukocytes 1 % 0-10 Automated blood basophils/100 leukocytes 0 % 0-10 Blood neutrophils automated count (number/volume) 4.4 10*3 1.8-7.8 Blood lymphocytes automated count (number/volume) 0.8 10*3 1.0-4.0 Blood monocytes automated count (number/volume) 0.7 10*3 0.0-1.0 Automated eosinophil count 0.1 10*3/uL 0.0-0.3 Automated blood basophil count (count/volume) 0.0 10*3/uL 0.0-0.1 PT panel in platelet poor plasma by coagulation assay - 10/31/15 15:00 Prothrombin time (PT) in platelet poor plasma by coagulation assay 11.6 s 12.2-14.7 INR in platelet poor plasma or blood by coagulation assay 0.9 0.8-1.4 Activated partial thromboplastin time (aPTT) in platelet poor plasma bycoagulation assay - 10/31/15 15:00 Activated partial thromboplastin time (aPTT) in platelet poor plasma bycoagulation assay 32 s 24-35 Comprehensive metabolic panel - 10/31/15 15:00 Serum or plasma sodium measurement (moles/volume) 137 mmol/L 135-145 Serum or plasma potassium measurement (moles/volume) 3.2 mmol/L 3.6-5.0 Serum or plasma chloride measurement (moles/volume) 100 mmol/L 98-107 Carbon dioxide 26 mmol/L 21-32 Serum or plasma anion gap determination (moles/volume) 11 mmol/L 5-14 Serum or plasma urea nitrogen measurement (mass/volume) 14 mg/dL 7-18 Serum or plasma creatinine measurement (mass/volume) 0.70 mg/dL 0.60-1.30 Serum or plasma urea nitrogen/creatinine mass ratio 20 NRG Serum or plasma creatinine measurement with calculation of estimated glomerular filtration rate > NRG Serum or plasma glucose measurement (mass/volume) 110 mg/dL 70-105 Serum or plasma calcium measurement (mass/volume) 11.0 mg/dL 8.5-10.1 Serum or plasma total bilirubin measurement (mass/volume) 0.3 mg/dL 0.1-1.0 Serum or plasma alkaline phosphatase measurement (enzymatic activity/volume) 79 U/L 40-136 Serum or plasma aspartate aminotransferase measurement (enzymatic activity/ volume) 25 U/L 5-34 Serum or plasma alanine aminotransferase measurement (enzymatic activity/volume ) 34 U/L 0-55 Serum or plasma protein measurement (mass/volume) 6.8 g/dL 6.4-8.2 Serum or plasma albumin measurement (mass/volume) 3.9 g/dL 3.2-4.5 Magnesium - 10/31/15 15:00 Magnesium 1.8 mg/dL 1.8-2.4 Serum or plasma troponin i.cardiac measurement (mass/volume) - 10/31/15 15:00 Serum or plasma troponin i.cardiac measurement (mass/volume) < ng/ mL <0.30 Myoglobin, serum - 10/31/15 15:00 Myoglobin, serum 35.9 ng/mL 10.0-92.0 Serum or plasma lithium measurement (moles/volume) - 10/31/15 15:00 BNP level 106.1 pg/mL <100.0 Serum or plasma thyroxine (T4) free measurement (mass/volume) - 10/31/15 15:00 Serum or plasma thyroxine (T4) free measurement (mass/volume) 1.34 ng/dL 0.70-1.48 Serum or plasma thyrotropin measurement by detection limit <=0.05 miu/l (units/ volume) - 10/31/15 15:00 Serum or plasma thyrotropin measurement by detection limit <=0.05 miu/l (units/ volume) 0.27 u[iU]/mL 0.35-4.94 Complete urinalysis with reflex to culture - 10/31/15 15:05 Urine color determination YELLOW NRG Urine clarity determination CLEAR NRG Urine pH measurement by test strip 8 5-9 Specific gravity of urine by test strip 1.010 1.016- 1.022 Urine protein assay by test strip, semi-quantitative NEGATIVE NEGATIVE Urine glucose detection by automated test strip NEGATIVE NEGATIVE Erythrocytes detection in urine sediment by light microscopy NEGATIVE NEGATIVE Urine ketones detection by automated test strip NEGATIVE NEGATIVE Urine nitrite detection by test strip NEGATIVE NEGATIVE Urine total bilirubin detection by test strip NEGATIVE NEGATIVE Urine urobilinogen measurement by automated test strip (mass/volume) NORMAL NORMAL Urine leukocyte esterase detection by dipstick NEGATIVE NEGATIVE Automated urine sediment erythrocyte count by microscopy (number/high power field) NONE NRG Automated urine sediment leukocyte count by microscopy (number/high power field ) NONE NRG Bacteria detection in urine sediment by light microscopy NONE NRG Squamous epithelial cells detection in urine sediment by light microscopy RARE NRG Crystals detection in urine sediment by light microscopy PRESENT NRG Casts detection in urine sediment by light microscopy NONE NRG Mucus detection in urine sediment by light microscopy NEGATIVE NRG Complete urinalysis with reflex to culture NO NRG Amorphous sediment detection in urine sediment by light microscopy FEW GARETT PHOSPHATE NRG Serum or plasma troponin i.cardiac measurement (mass/volume) - 10/31/15 23:05 Serum or plasma troponin i.cardiac measurement (mass/volume) < ng/ mL <0.30 Complete blood count (CBC) with automated white blood cell (WBC) differential - 11/01/15 06:03 Blood leukocytes automated count (number/volume) 6.7 10*3/uL 4.3-11.0 Blood erythrocytes automated count (number/volume) 4.60 10*6/uL 4.35-5.85 Venous blood hemoglobin measurement (mass/volume) 13.9 g/dL 11.5-16.0 Blood hematocrit (volume fraction) 40 % 35-52 Automated erythrocyte mean corpuscular volume 87 [foz_us] 80-99 Automated erythrocyte mean corpuscular hemoglobin (mass per erythrocyte) 30 pg 25-34 Automated erythrocyte mean corpuscular hemoglobin concentration measurement ( mass/volume) 35 g/dL 32-36 Automated erythrocyte distribution width ratio 12.6 % 10.0-14.5 Automated blood platelet count (count/volume) 411 10*3/uL 130-400 Automated blood platelet mean volume measurement 8.8 [[facility]] 7.4-10.4 Automated blood neutrophils/100 leukocytes 91 % 42-75 Automated blood lymphocytes/100 leukocytes 7 % 12-44 Blood monocytes/100 leukocytes 2 % 0-12 Automated blood eosinophils/100 leukocytes 0 % 0-10 Automated blood basophils/100 leukocytes 0 % 0-10 Blood neutrophils automated count (number/volume) 6.1 10*3 1.8-7.8 Blood lymphocytes automated count (number/volume) 0.4 10*3 1.0-4.0 Blood monocytes automated count (number/volume) 0.2 10*3 0.0-1.0 Automated eosinophil count 0.0 10*3/uL 0.0-0.3 Automated blood basophil count (count/volume) 0.0 10*3/uL 0.0-0.1 Blood manual differential performed detection - 11/01/15 06:03 Blood monocytes/100 leukocytes 1 % NR Manual blood segmented neutrophils/100 leukocytes 95 % NRG Blood band neutrophils/100 leukocytes 0 % NRG Manual blood lymphocytes/100 leukocytes 4 % NRG Manual eosinophils/100 leukocytes in nose 0 % NRG Manual blood basophils/100 leukocytes 0 % NRG Blood erythrocyte morphology finding identification [facility] Whole blood basic metabolic panel - 11/01/15 06:03 Serum or plasma sodium measurement (moles/volume) 136 mmol/L 135-145 Serum or plasma potassium measurement (moles/volume) 3.5 mmol/L 3.6-5.0 Serum or plasma chloride measurement (moles/volume) 101 mmol/L 98-107 Carbon dioxide 21 mmol/L 21-32 Serum or plasma anion gap determination (moles/volume) 14 mmol/L 5-14 Serum or plasma urea nitrogen measurement (mass/volume) 10 mg/dL 7-18 Serum or plasma creatinine measurement (mass/volume) 0.70 mg/dL 0.60-1.30 Serum or plasma urea nitrogen/creatinine mass ratio 14 NRG Serum or plasma creatinine measurement with calculation of estimated glomerular filtration rate > NRG Serum or plasma glucose measurement (mass/volume) 151 mg/dL 70-105 Serum or plasma calcium measurement (mass/volume) 9.4 mg/dL 8.5-10.1 Magnesium - 11/01/15 06:03 Magnesium 1.8 mg/dL 1.8-2.4 Lipid 1996 panel - 11/01/15 06:03 Serum or plasma triglyceride measurement (mass/volume) 70 mg/dL <150 Serum or plasma cholesterol measurement (mass/volume) 210 mg/dL < 200 Serum or plasma cholesterol in HDL measurement (mass/volume) 50 mg/ dL 40-60 Cholesterol in LDL [mass/volume] in serum or plasma by direct assay 141 mg/dL 1-129 Serum or plasma cholesterol in VLDL measurement (mass/volume) 14 mg/ dL 5-40 IONIZED CALCIUM (SEND OFF) - 11/01/15 06:03 Blood ionized calcium measurement (mass/volume) 1.19 % 1.16-1.32 Venous blood ionized calcium measurement adjusted to pH 7.4 (moles/volume) 1.18 % 1.16-1.32 pH measurement 7.39 NRG Serum or plasma intact pararthyroid hormone measurement (mass/volume) - 06:03 Serum or plasma intact parathyroid hormone measurement (mass/volume) 16 pg/mL 10-65 Bio-intact parathyroid hormone (PTH) measurement with calcium 9.3 % 8.5-10.5 Whole blood basic metabolic panel - 11/02/15 05:26 Serum or plasma sodium measurement (moles/volume) 136 mmol/L 135-145 Serum or plasma potassium measurement (moles/volume) 3.4 mmol/L 3.6-5.0 Serum or plasma chloride measurement (moles/volume) 102 mmol/L 98-107 Carbon dioxide 19 mmol/L 21-32 Serum or plasma anion gap determination (moles/volume) 15 mmol/L 5-14 Serum or plasma urea nitrogen measurement (mass/volume) 12 mg/dL 7-18 Serum or plasma creatinine measurement (mass/volume) 0.68 mg/dL 0.60-1.30 Serum or plasma urea nitrogen/creatinine mass ratio 18 NRG Serum or plasma creatinine measurement with calculation of estimated glomerular filtration rate > NRG Serum or plasma glucose measurement (mass/volume) 163 mg/dL 70-105 Serum or plasma calcium measurement (mass/volume) 9.7 mg/dL 8.5-10.1 Magnesium - 11/02/15 05:26 Magnesium 2.1 mg/dL 1.8-2.4 Automated blood complete blood count (hemogram) panel - 11/14/15 07:40 Blood leukocytes automated count (number/volume) 6.8 10*3/uL 4.3-11.0 Blood erythrocytes automated count (number/volume) 4.11 10*6/uL 4.35-5.85 Venous blood hemoglobin measurement (mass/volume) 12.7 g/dL 11.5-16.0 Blood hematocrit (volume fraction) 37 % 35-52 Automated erythrocyte mean corpuscular volume 90 [foz_us] 80-99 Automated erythrocyte mean corpuscular hemoglobin (mass per erythrocyte) 31 pg 25-34 Automated erythrocyte mean corpuscular hemoglobin concentration measurement ( mass/volume) 34 g/dL 32-36 Automated erythrocyte distribution width ratio 13.2 % 10.0-14.5 Automated blood platelet count (count/volume) 379 10*3/uL 130-400 Automated blood platelet mean volume measurement 8.9 [foz_us] 7.4-10.4 PT panel in platelet poor plasma by coagulation assay - 11/14/15 07:40 Prothrombin time (PT) in platelet poor plasma by coagulation assay 11.7 s 12.2-14.7 INR in platelet poor plasma or blood by coagulation assay 0.9 0.8-1.4 Activated partial thromboplastin time (aPTT) in platelet poor plasma bycoagulation assay - 11/14/15 07:40 Activated partial thromboplastin time (aPTT) in platelet poor plasma bycoagulation assay 31 s 24-35 Comprehensive metabolic panel - 11/14/15 07:40 Serum or plasma sodium measurement (moles/volume) 137 mmol/L 135-145 Serum or plasma potassium measurement (moles/volume) 4.1 mmol/L 3.6-5.0 Serum or plasma chloride measurement (moles/volume) 103 mmol/L 98-107 Carbon dioxide 24 mmol/L 21-32 Serum or plasma anion gap determination (moles/volume) 10 mmol/L 5-14 Serum or plasma urea nitrogen measurement (mass/volume) 21 mg/dL 7-18 Serum or plasma creatinine measurement (mass/volume) 1.07 mg/dL 0.60-1.30 Serum or plasma urea nitrogen/creatinine mass ratio 20 NRG Serum or plasma creatinine measurement with calculation of estimated glomerular filtration rate 51 NRG Serum or plasma glucose measurement (mass/volume) 91 mg/dL 70-105 Serum or plasma calcium measurement (mass/volume) 9.5 mg/dL 8.5-10.1 Serum or plasma total bilirubin measurement (mass/volume) 0.4 mg/dL 0.1-1.0 Serum or plasma alkaline phosphatase measurement (enzymatic activity/volume) 68 U/L 40-136 Serum or plasma aspartate aminotransferase measurement (enzymatic activity/ volume) 25 U/L 5-34 Serum or plasma alanine aminotransferase measurement (enzymatic activity/volume ) 31 U/L 0-55 Serum or plasma protein measurement (mass/volume) 6.2 g/dL 6.4-8.2 Serum or plasma albumin measurement (mass/volume) 3.7 g/dL 3.2-4.5 Lipid 1996 panel - 11/14/15 07:40 Serum or plasma triglyceride measurement (mass/volume) 83 mg/dL <150 Serum or plasma cholesterol measurement (mass/volume) 144 mg/dL < 200 Serum or plasma cholesterol in HDL measurement (mass/volume) 52 mg/ dL 40-60 Cholesterol in LDL [mass/volume] in serum or plasma by direct assay 70 mg/dL 1-129 Serum or plasma cholesterol in VLDL measurement (mass/volume) 17 mg/ dL 5-40 Methicillin resistant Staphylococcus aureus (MRSA) screening culture - 07:40 Methicillin resistant Staphylococcus aureus (MRSA) screening culture NEG NR Automated blood complete blood count (hemogram) panel - 06/30/17 14:55 Blood leukocytes automated count (number/volume) 6.1 10*3/uL 4.3-11.0 Blood erythrocytes automated count (number/volume) 4.37 10*6/uL 4.35-5.85 Venous blood hemoglobin measurement (mass/volume) 13.2 g/dL 11.5-16.0 Blood hematocrit (volume fraction) 41 % 35-52 Automated erythrocyte mean corpuscular volume 93 [foz_us] 80-99 Automated erythrocyte mean corpuscular hemoglobin (mass per erythrocyte) 30 pg 25-34 Automated erythrocyte mean corpuscular hemoglobin concentration measurement ( mass/volume) 33 g/dL 32-36 Automated erythrocyte distribution width ratio 12.6 % 10.0-14.5 Automated blood platelet count (count/volume) 313 10*3/uL 130-400 Automated blood platelet mean volume measurement 8.8 [foz_us] 7.4-10.4 Comprehensive metabolic panel - 06/30/17 14:55 Serum or plasma sodium measurement (moles/volume) 140 mmol/L 135-145 Serum or plasma potassium measurement (moles/volume) 3.9 mmol/L 3.6-5.0 Serum or plasma chloride measurement (moles/volume) 102 mmol/L 98-107 Carbon dioxide 31 mmol/L 21-32 Serum or plasma anion gap determination (moles/volume) 7 mmol/L 5-14 Serum or plasma urea nitrogen measurement (mass/volume) 10 mg/dL 7-18 Serum or plasma creatinine measurement (mass/volume) 0.80 mg/dL 0.60-1.30 Serum or plasma urea nitrogen/creatinine mass ratio 13 NRG Serum or plasma creatinine measurement with calculation of estimated glomerular filtration rate > NRG Serum or plasma glucose measurement (mass/volume) 118 mg/dL 70-105 Serum or plasma calcium measurement (mass/volume) 9.6 mg/dL 8.5-10.1 Serum or plasma total bilirubin measurement (mass/volume) 0.2 mg/dL 0.1-1.0 Serum or plasma alkaline phosphatase measurement (enzymatic activity/volume) 65 U/L 40-136 Serum or plasma aspartate aminotransferase measurement (enzymatic activity/ volume) 25 U/L 5-34 Serum or plasma alanine aminotransferase measurement (enzymatic activity/volume ) 20 U/L 0-55 Serum or plasma protein measurement (mass/volume) 7.1 g/dL 6.4-8.2 Serum or plasma albumin measurement (mass/volume) 4.2 g/dL 3.2-4.5 Encounters ACCT No. Visit Date/Time Discharge Status Pt. Type Provider Facility Loc./Unit Complaint [id number] 06/30/2017 14:30:00 06/30/2017 23:59:59 CLS Outpatient STEPAN CLEMONS MD [facility] RAD PRE OP [id number] 05/14/2017 10:15:00 06/27/2017 13:31:00 DIS Outpatient LILIANA SANTANA DO [facility] REHAB LUMBAR RADICULOPATHY; MYOFASCIAL PAIN [id number] 06/26/2017 12:21:00 06/26/2017 23:59:59 CLS Outpatient CARI VALERIO DOLL REPAIRER [facility] CARD I10 HTN [id number] 06/10/2017 11:22:00 06/10/2017 23:59:59 CLS Outpatient CARI VALERIO DOLL REPAIRER [facility] CARD I10HTN [id number] 06/04/2017 09:16:00 06/04/2017 23:59:59 CLS Outpatient CRISTIAN SHEPARD APRN [facility] RAD SCREENING [id number] 04/22/2017 14:57:00 04/22/2017 23:59:59 CLS Outpatient LAURY SHERMAN [facility] RAD LT HIP PX [id number] 05/28/2016 11:00:00 05/28/2016 23:59:59 CLS Outpatient BASILIA ROSAS MD [facility] RAD SCREENING [id number] 03/27/2016 20:57:00 03/28/2016 06:40:00 DIS Outpatient SONIDO ROSARIO ICE SKATER [facility] SLEEP BASSEM [id number] 02/07/2016 13:07:00 02/07/2016 23:59:59 CLS Outpatient BASILIA ROSAS MD [facility] RAD THYROID NODULE [id number] 11/15/2015 16:35:00 11/15/2015 23:59:59 CLS Outpatient DUSTIN DUARTE APRN [facility] RT FATIGUE [id number] 11/14/2015 07:10:00 11/14/2015 11:54:00 DIS Outpatient MERCY PISANO FACC, TRELL WELLS CCDS [facility] CATH DYSPNEA, MITRAL REGURGITATION [id number] 10/31/2015 20:40:00 11/02/2015 13:00:00 DIS Inpatient FABIANA BARRIOS MD [facility] 4TH HYPERTENSIVE URGENCY,RICH, HYPERCALCEMIA,HYPOKALEMIA [id number] 06/06/2015 09:41:00 06/06/2015 12:11:00 DIS Outpatient HARRY BETTS MD [facility] REHAB SCIATICA [id number] 05/23/2015 13:24:00 05/23/2015 23:59:59 CLS Outpatient BASILIA ROSAS MD [facility] RAD SCREENING [id number] 05/31/2014 13:58:00 05/31/2014 23:59:59 CLS Outpatient BASILIA ROSAS MD [facility] RAD CAROTID OCCLUSIVE DISEASE [id number] 05/12/2014 12:46:00 05/12/2014 23:59:59 CLS Outpatient BRIANA WEBER MD [facility] RAD SCREENING [id number] 11/19/2013 08:14:00 11/19/2013 23:59:59 CLS Outpatient BRIANA WEBER MD [facility] RAD 6 MONTH FOLLOW UP ABNORMAL MAMMO [id number] 09/06/2013 13:01:00 09/24/2013 14:32:00 DIS Outpatient HARRY BETTS MD [facility] REHAB SCIATICA [id number] 08/17/2013 07:45:00 08/17/2013 23:59:59 CLS Outpatient HARRY BETTS MD [facility] RAD POST OP LEG PAIN, SWELLING [id number] 08/11/2013 10:46:00 08/12/2013 11:37:00 DIS Outpatient HARRY BETTS MD [facility] REHAB S/P RT TKR [id number] 03/24/2013 13:22:00 03/24/2013 23:59:59 CLS Outpatient BRIANA WEBER MD [facility] RAD SIX MONTH F/U [id number] 09/29/2012 07:41:00 09/29/2012 23:59:59 CLS Outpatient BRIANA WEBER MD [facility] RAD ABN MAMMO [id number] 09/18/2012 09:00:00 09/18/2012 23:59:59 CLS Outpatient BRIANA WEBER MD [facility] RAD [facility] TEST, SCREENING [id number] 03/18/2012 13:22:00 Document Registration [id number] 10/18/2011 10:52:00 Document Registration [id number] 10/11/2011 12:08:00 Document Registration [id number] 10/07/2011 09:50:00 Document Registration [id number] 10/04/2011 12:47:00 Document Registration [id number] 06/01/2014 02:29:00 ACT Document Registration
--- NOTE | 2017-09-23 17:36 | ED General ---
General Chief Complaint: General Problems/Pain Stated Complaint: RECENT HOSPITAL DISCHARGE, CALCLIUM LEVELS HIGH Nursing Triage Note: TO ROOM REPORTS THAT ON AUGUST 22 HAD A L ANKLE REPLACED THAT GOT INFECTED HAS BEEN HOME 1 WEEK AND WAS CALLED TODAY BY CHEMO DIAS TO COME TO ER THAT HER K WAS LOW AND CALCIUM WAS HIGH Nursing Sepsis Screen: No Definite Risk Source of Information: Patient Exam Limitations: No Limitations History of Present Illness Date Seen by Provider: Sep 23, 2017 Time Seen by Provider: 17:32 Initial Comments Patient is a 72-year-old female who was sent to the emergency room by her doctor at for reports of low potassium and high calcium. Patient has just been feeling overall poorly for the past week but denies any real complaints. She reports this all started when she had her left ankle replaced August 22. She has been on IV Daptomycin for the past 2 weeks and has Timing/Duration: 1 Week Associated Systoms: Malaise Allergies and Home Medications Allergies Coded Allergies: No Known Drug Allergies (Unverified , 10/31/15) Home Medications Albuterol Sulfate 8.5 Gm Hfa.aer.ad, 1-2 PUFF IH Q4H Prescribed by: LUCERO SMILEY on 11/02/15922 Alprazolam 0.5 Mg Tablet, 0.5 MG PO HS PRN for SLEEP, (Reported) Amlodipine Besylate 5 Mg Tablet, 10 MG PO DAILY Prescribed by: CARI VALERIO on 11/02/15 08 Atorvastatin Calcium 20 Mg Tablet, 20 MG PO DAILY, (Reported) Bimatoprost 2.5 Ml Drops, 1 DROP OU HS, (Reported) Calcium Carbonate/Vitamin D3 1 Each Tablet, 1 TAB PO DAILY, (Reported) Clonidine HCl 0.1 Mg Tablet, 0.1 MG PO BID, (Reported) Cyclobenzaprine HCl 10 Mg Tablet, 20 MG PO HS PRN for MUSCLE SPASMS, (Reported) TAKES 2 (10MG) TABLETS Diclofenac Sodium 75 Mg Tablet.dr, 75 MG PO BID, (Reported) Duloxetine HCl 60 Mg Capsule., 60 MG PO HS, (Reported) Fluticasone/Salmeterol 1 Each Blst.w.dev, 1 EACH IH BID Prescribed by: LUCERO SMILEY on 11/02/15922 Furosemide 40 Mg Tablet, 40 MG PO DAILY, (Reported) Lisinopril 40 Mg Tablet, 40 MG PO DAILY, (Reported) Nebivolol HCl 10 Mg Tab, 10 MG PO BID, (Reported) Potassium Chloride 20 Meq Tablet.er, 20 MEQ PO DAILY, (Reported) Timolol 5 Ml Drops, 1 DROP OU DAILY, (Reported) Tramadol HCl 50 Mg Tablet, 50 MG PO Q4H PRN for PAIN Prescribed by: LUCERO SMILEY on 11/02/15 0923 Patient Home Medication List Home Medication List Reviewed: Yes Review of Systems Constitutional: see HPI; No chills, No fever; malaise Skin: no symptoms reported, see HPI All Other Systems Reviewed Negative Unless Noted: Yes Past Rodhkam-Xknkwl-Ltpbti Hx Past Med/Social Hx: Reviewed Nursing Past Med/Soc Hx Patient Social History Alcohol Use: Denies Use Recreational Drug Use: No Smoking Status: Never a Smoker 2nd Hand Smoke Exposure: No Recent Foreign Travel: No Contact w/Someone Who Travel: No Recent Infectious Disease Expo: No Recent Hopitalizations: No Immunizations Up To Date Date of Pneumonia Vaccine: Nov 10, 2014 Date of Influenza Vaccine: Oct 30, 2014 Seasonal Allergies Seasonal Allergies: No Past Medical History Surgeries: Yes (TONCIL,LUMBAR,R TOT KNEE,R ANKLE FUSION) Respiratory: No Cardiac: Yes Hypertension Neurological: No Reproductive Disorders: No Gastrointestinal: No Musculoskeletal: Yes (OSTEOARTHRITIS; BROKEN PELVIS - NO SURGERY) Chronic Back Pain Endocrine: No Glaucoma Cancer: No Psychosocial: No Integumentary: No Family Medical History Reviewed Nursing Family Hx BREAST CANCER 19 MOTHER HEART DISEASE 19 FATHER LUPUS 19 FATHER RHEUMATOID ARTHRITIS 19 FATHER SCLERODERMA 19 FATHER Physical Exam Vital Signs Vital Signs - First Documented 09/23/17 16:35 Temp 97.4 Pulse 84 Resp 18 B/P (MAP) 171/98 (122) Pulse Ox 98 O2 Delivery Room Air Capillary Refill : Less Than 3 Seconds Height, Weight, BMI Height: 5'6.00" Weight: 160lbs. 0.0oz. 72.483484hw; 27.6 BMI Method:Stated General Appearance: No Apparent Distress, WD/WN Eyes: Bilateral Eye Normal Inspection, Bilateral Eye PERRL, Bilateral Eye EOMI Respiratory: Chest Non Tender, Lungs Clear, Normal Breath Sounds, No Accessory Muscle Use, No Respiratory Distress Cardiovascular: Regular Rate, Rhythm, No Edema, No Gallop, No JVD, No Murmur, Normal Peripheral Pulses Skin: Normal Color, Warm/Dry Progress/Results/Core Measures Suspected Sepsis Recent Fever Within 48 Hours: No Infection Criteria Present: None New/Unexplained Altered Menta: No Sepsis Screen: No Definite Risk SIRS Temperature:97.4 Pulse: 84 Respiratory Rate: 18 Laboratory Tests 09/23/17 17:40: White Blood Count 9.0 Blood Pressure 171 /98 Mean: 122 Laboratory Tests 09/23/17 17:40: Creatinine 0.82, Platelet Count 310, Total Bilirubin 0.3 Results/Orders Lab Results My Orders Medications Given in ED Vital Signs/I&O Capillary Refill : Less Than 3 Seconds Blood Pressure Mean: 122 Progress Note : Time: 18:27 Progress Note I spoke Dr. Bansal regarding the patient's laboratory findings. He recommends close follow-up with primary care provider which is Dr. Rosas. He also recommends increasing her potassium to 40 mEq a day until she follows up with Dr. Rosas within 1 week. Patient reports that she does have an appointment with Dr. Rosas tomorrow at 10:30 AM. I instructed her to take her increased dose of potassium and follow-up with him for further evaluation and management. She agrees with plan of care, plans for discharge, and return precautions. Departure Impression Primary Impression: Hypercalcemia Additional Impression: Hypokalemia Disposition: 01 HOME, SELF-CARE Condition: Stable/Unchanged Departure-Patient Inst. Decision time for Depature: 18:47 Referrals: BASILIA ROSAS MD (PCP/Family) Primary Care Physician Patient Instructions: Hypercalcemia (DC), Hypocalcemia (DC) Add. Discharge Instructions: Increase your potassium to 40 mEq a day until you follow up with Dr. Rosas's office. Keep your appointment with him tomorrow. Return back to the emergency room for any concerns as needed. All discharge instructions reviewed with patient and/or family. Voiced understanding. KAVITA HARPER Sep 23, 2017 17:35
[2017-09-23] MEDS ORDERED: HEParin (CENTRAL IV FLUSH) 500 UNIT/5 ML SYR ONE (17:40)
[2017-09-23 17:48] LABS: BASOPHILS # (AUTO) 0.1 10^3/uL (0.0-0.1); BASOPHILS % (AUTO) 1 % (0-10); EOSINOPHILS # (AUTO) 0.4 10^3/uL (0.0-0.3); EOSINOPHILS % (AUTO) 4 % (0-10); HEMATOCRIT 29 % (35-52); HEMOGLOBIN 9.9 G/DL (11.5-16.0); LYMPHOCYTES # (AUTO) 1.1 X 10^3 (1.0-4.0); LYMPHOCYTES % (AUTO) 12 % (12-44); MEAN CORPUSCULAR HEMOGLOBIN 31 PG (25-34); MEAN CORPUSCULAR HGB CONC 34 G/DL (32-36); MEAN CORPUSCULAR VOLUME 90 FL (80-99); MEAN PLATELET VOLUME 9.4 FL (7.4-10.4); MONOCYTES # (AUTO) 1.1 X 10^3 (0.0-1.0); MONOCYTES % (AUTO) 12 % (0-12); NEUTROPHILS # (AUTO) 6.4 X 10^3 (1.8-7.8); NEUTROPHILS % (AUTO) 71 % (42-75); PLATELET COUNT 310 10^3/uL (130-400); RED BLOOD COUNT 3.21 10^6/uL (4.35-5.85)
[2017-09-23 18:12] LABS: ALANINE AMINOTRANSFERASE 52 U/L (0-55); ALBUMIN 3.1 GM/DL (3.2-4.5); ALKALINE PHOSPHATASE 90 U/L (40-136); BILIRUBIN,TOTAL 0.3 MG/DL (0.1-1.0); BUN/CREATININE RATIO 26; CALCIUM 9.7 MG/DL (8.5-10.1); CARBON DIOXIDE 24 MMOL/L (21-32); CHLORIDE 102 MMOL/L (98-107); CREATININE SERUM 0.82 MG/DL (0.60-1.30); GFR ESTIMATED > 60; GLUCOSE 97 MG/DL (70-105); POTASSIUM 2.7 MMOL/L (3.6-5.0); SODIUM 137 MMOL/L (135-145); TOTAL PROTEIN 6.7 GM/DL (6.4-8.2)
[2017-09-23 18:53] VITALS: BP 133/79
== END 2017-09-23 18:51 | disposition home or self-care (01) ==
LOC: EDUNIT# 15:51 → ER 15:52
DX: E83.52 Hypercalcemia (principal); E87.6 Hypokalemia; I10 Essential (primary) hypertension; Z80.3 Family history of malignant neoplasm of breast; Z79.51 Long term (current) use of inhaled steroids; Z79.52 Long term (current) use of systemic steroids
CPT/HCPCS: 36415; 80053; 83735; 85025

== ENCOUNTER → 2017-09-24 | Outpatient (CLI) | payer MEDICARE ==
[2017-09-24 11:32] LABS: BILIRUBIN,URINE NEGATIVE (NEGATIVE); CLARITY,URINE CLEAR; COLOR,URINE YELLOW; GLUCOSE, URINE (UA) NEGATIVE (NEGATIVE); KETONES,URINE NEGATIVE (NEGATIVE); LEUKOCYTE ESTERASE ,URINE NEGATIVE (NEGATIVE); NITRITE,URINE NEGATIVE (NEGATIVE); PH,URINE 7 (5-9); PROTEIN,URINE NEGATIVE (NEGATIVE); UROBILINOGEN,URINE NORMAL (NORMAL)
[2017-09-24 11:55] LABS: BACTERIA,URINE NEGATIVE /HPF; SQUAMOUS EPITHELIAL CELL,UR RARE /HPF; WBC,URINE 0-2 /HPF
== END ==
LOC: HH 08:00
PROVIDERS: ATTEND Internal Medicine
DX: T84.7XXA Infection and inflammatory reaction due to other internal orthopedic prosthetic devices, implants and grafts, initial encounter (principal); A49.01 Methicillin susceptible Staphylococcus aureus infection, unspecified site

== ENCOUNTER → 2017-09-25 | Outpatient (CLI) | payer MEDICARE ==
[~2017-09-25] MED LIST changes: +IOHEXOL 350 MG/ML 150 ML (OMNIPAQUE 350) VIAL IV ONE; +NS 250 ML (IVPB) BAG IV ONE
--- NOTE | 2017-09-25 16:24 | Diagnostic Imaging Report ---
PROCEDURE: CT angiography of the chest with contrast. TECHNIQUE: Multiple contiguous axial images were obtained through the chest after uneventful bolus administration of intravenous contrast. Reconstructed CTA MIP acquisitions were also performed. INDICATION: Postop dyspnea. Chest pain. FINDINGS: There is good opacification of the aorta and pulmonary arteries. There is no evidence of aortic aneurysm or dissection. The pulmonary arteries show no filling defects to indicate pulmonary emboli. There are bilateral scattered areas of atelectasis and infiltrate within the lower lobes. Also, mild infiltrate and/or atelectasis in the right upper lobe. There is no pleural effusion. No pneumothorax. No mediastinal or hilar adenopathy of pathologic size. No pericardial effusions. IMPRESSION: 1. No evidence of pulmonary emboli. 2. Scattered dense alveolar infiltrates as well as atelectasis with air bronchogram noted throughout both the upper and lower lobes, most severe in the right lower lobe. Dictated by: Dictated on workstation # [id number]
== END ==
LOC: RAD 15:25
PROVIDERS: ATTEND Internal Medicine
DX: J98.11 Atelectasis (principal); R91.8 Other nonspecific abnormal finding of lung field
CPT/HCPCS: 71275

== ENCOUNTER 2018-02-13 10:19 | Outpatient (RCR) | payer MEDICARE ==
[2017-12-01 14:26] LABS: ABSOLUTE RETIC # 50 10e9/L (24-90); BASOPHILS % (AUTO) 1 % (0-10); EOSINOPHILS # (AUTO) 0.1 10^3/uL (0.0-0.3); EOSINOPHILS % (AUTO) 2 % (0-10); HEMATOCRIT 35 % (35-52); HEMOGLOBIN 11.2 G/DL (11.5-16.0); LYMPHOCYTES # (AUTO) 1.5 X 10^3 (1.0-4.0); LYMPHOCYTES % (AUTO) 25 % (12-44); MEAN CORPUSCULAR HEMOGLOBIN 31 PG (25-34); MEAN CORPUSCULAR HGB CONC 32 G/DL (32-36); MEAN CORPUSCULAR VOLUME 96 FL (80-99); MEAN PLATELET VOLUME 9.3 FL (7.4-10.4); MONOCYTES # (AUTO) 0.7 X 10^3 (0.0-1.0); MONOCYTES % (AUTO) 11 % (0-12); NEUTROPHILS # (AUTO) 3.8 X 10^3 (1.8-7.8); NEUTROPHILS % (AUTO) 62 % (42-75); PLATELET COUNT 345 10^3/uL (130-400); RED BLOOD COUNT 3.64 10^6/uL (4.35-5.85); RETICULOCYTE % 1.37 % (0.50-2.40); WHITE BLOOD COUNT 6.1 10^3/uL (4.3-11.0)
[2017-12-01 14:46] LABS: ALBUMIN 3.8 GM/DL (3.2-4.5); BILIRUBIN,TOTAL 0.2 MG/DL (0.1-1.0); CALCIUM 9.5 MG/DL (8.5-10.1); CREATININE SERUM 1.05 MG/DL (0.60-1.30); POTASSIUM 4.4 MMOL/L (3.6-5.0); TOTAL PROTEIN 6.9 GM/DL (6.4-8.2)
[2017-12-29 15:06] LABS: BASOPHILS % (AUTO) 1 % (0-10); EOSINOPHILS # (AUTO) 0.2 10^3/uL (0.0-0.3); EOSINOPHILS % (AUTO) 3 % (0-10); HEMATOCRIT 37 % (35-52); HEMOGLOBIN 11.9 G/DL (11.5-16.0); LYMPHOCYTES # (AUTO) 1.6 X 10^3 (1.0-4.0); LYMPHOCYTES % (AUTO) 26 % (12-44); MEAN CORPUSCULAR HEMOGLOBIN 31 PG (25-34); MEAN CORPUSCULAR HGB CONC 32 G/DL (32-36); MEAN CORPUSCULAR VOLUME 96 FL (80-99); MEAN PLATELET VOLUME 8.9 FL (7.4-10.4); MONOCYTES # (AUTO) 0.7 X 10^3 (0.0-1.0); MONOCYTES % (AUTO) 11 % (0-12); NEUTROPHILS # (AUTO) 3.5 X 10^3 (1.8-7.8); NEUTROPHILS % (AUTO) 59 % (42-75); PLATELET COUNT 312 10^3/uL (130-400); RED CELL DISTRIBUTION WIDTH 13.2 % (10.0-14.5); WHITE BLOOD COUNT 5.9 10^3/uL (4.3-11.0)
[2018-01-23 11:33] LABS: ABSOLUTE RETIC # 40 10e9/L (24-90); BASOPHILS % (AUTO) 1 % (0-10); EOSINOPHILS # (AUTO) 0.1 10^3/uL (0.0-0.3); EOSINOPHILS % (AUTO) 2 % (0-10); HEMATOCRIT 41 % (35-52); HEMOGLOBIN 13.3 G/DL (11.5-16.0); LYMPHOCYTES # (AUTO) 1.1 X 10^3 (1.0-4.0); LYMPHOCYTES % (AUTO) 17 % (12-44); MEAN CORPUSCULAR HEMOGLOBIN 31 PG (25-34); MEAN CORPUSCULAR HGB CONC 33 G/DL (32-36); MEAN CORPUSCULAR VOLUME 95 FL (80-99); MEAN PLATELET VOLUME 9.4 FL (7.4-10.4); MONOCYTES # (AUTO) 0.7 X 10^3 (0.0-1.0); MONOCYTES % (AUTO) 10 % (0-12); NEUTROPHILS # (AUTO) 4.6 X 10^3 (1.8-7.8); NEUTROPHILS % (AUTO) 70 % (42-75); PLATELET COUNT 307 10^3/uL (130-400); RED BLOOD COUNT 4.26 10^6/uL (4.35-5.85); RED CELL DISTRIBUTION WIDTH 12.7 % (10.0-14.5); RETICULOCYTE % 0.94 % (0.50-2.40); WHITE BLOOD COUNT 6.5 10^3/uL (4.3-11.0)
[2018-01-23 15:32] LABS: BAND NEUTROPHILS 2 %; LYMPHOCYTES % (MANUAL) 23 %; NEUTROPHILS % (MANUAL) 66 %
[2018-01-23 15:33] LABS: BASOPHILS % (MANUAL) 0 %; EOSINOPHILS % (MANUAL) 1 %; MONOCYTES % (MANUAL) 8 %; RBC MORPH NORMAL
[~2018-02-13 10:19] MED LIST changes: +ACET-2267 PO; +ALPR1TAB7 PO; +AMLO10TA4 PO; -AMLO5TAB2 PO; +AMLO5TAB7 PO; +ASCO-262 PO; +CHOL200085 PO; +CYCL5.5D OU; +DAPT500V3 IV; +DULO30CA48 PO; +FERR325T5 PO; +HYDR-3812 PO; +HYDR25TA4 PO; -IOHEXOL 350 MG/ML 150 ML (OMNIPAQUE 350) VIAL IV ONE; +LACT1CAP62 PO; +METO100T12 PO; -NS 250 ML (IVPB) BAG IV ONE; +ONDN4T PO; -OXYC-197 PO; +OXYC1TAB87 PO; +PRAM0.128 PO; +RANI150T90 PO; +RIFA300C3 PO; +TRAZ-189 PO
== END 2018-03-01 | disposition home or self-care (01) ==
LOC: ONC 10:19
PROVIDERS: ATTEND Internal Medicine Hematology & Oncology
DX: D47.2 Monoclonal gammopathy (principal); D64.9 Anemia, unspecified; I13.0 Hypertensive heart and chronic kidney disease with heart failure and stage 1 through stage 4 chronic kidney disease, or unspecified chronic kidney disease; I50.31 Acute diastolic (congestive) heart failure; N18.3 Chronic kidney disease, stage 3 (moderate); I34.0 Nonrheumatic mitral (valve) insufficiency; M15.9 Polyosteoarthritis, unspecified; B95.61 Methicillin susceptible Staphylococcus aureus infection as the cause of diseases classified elsewhere; Z96.661 Presence of right artificial ankle joint; Z79.899 Other long term (current) drug therapy
CPT/HCPCS: 36415; 38221; 80053; 82728; 82784; 83540; 83615; 83883; 84155; 84165; 85007; 85025; 85045; 88184; 88185; 88237; 88264; 88280; 88305; 88311; 88313; 88377; 99213; 99214

== ENCOUNTER 2018-05-11 10:51 | Outpatient (RCR) | payer MEDICARE ==
[2018-05-05 11:57] LABS: BASOPHILS % (AUTO) 0 % (0-10); EOSINOPHILS # (AUTO) 0.2 10^3/uL (0.0-0.3); EOSINOPHILS % (AUTO) 3 % (0-10); HEMATOCRIT 40 % (35-52); LYMPHOCYTES # (AUTO) 1.5 X 10^3 (1.0-4.0); LYMPHOCYTES % (AUTO) 19 % (12-44); MEAN CORPUSCULAR HEMOGLOBIN 31 PG (25-34); MEAN CORPUSCULAR HGB CONC 33 G/DL (32-36); MEAN CORPUSCULAR VOLUME 95 FL (80-99); MEAN PLATELET VOLUME 8.7 FL (7.4-10.4); MONOCYTES # (AUTO) 0.7 X 10^3 (0.0-1.0); MONOCYTES % (AUTO) 10 % (0-12); NEUTROPHILS # (AUTO) 5.2 X 10^3 (1.8-7.8); NEUTROPHILS % (AUTO) 68 % (42-75); PLATELET COUNT 328 10^3/uL (130-400); RED CELL DISTRIBUTION WIDTH 13.3 % (10.0-14.5); WHITE BLOOD COUNT 7.6 10^3/uL (4.3-11.0)
[2018-05-05 12:14] LABS: ALBUMIN 4.1 GM/DL (3.2-4.5); BILIRUBIN,TOTAL 0.3 MG/DL (0.1-1.0); CALCIUM 9.8 MG/DL (8.5-10.1); CREATININE SERUM 0.93 MG/DL (0.60-1.30); POTASSIUM 3.7 MMOL/L (3.6-5.0); TOTAL PROTEIN 7.1 GM/DL (6.4-8.2)
[~2018-05-11 10:51] MED LIST changes: -AMLO5TAB7 PO; +AMLO5TAB9 PO; +CHOL200014 PO; -CHOL200085 PO
== END 2018-06-23 | disposition home or self-care (01) ==
LOC: ONC 10:51
PROVIDERS: ATTEND Internal Medicine Hematology & Oncology
DX: D47.2 Monoclonal gammopathy (principal); D64.9 Anemia, unspecified; I13.0 Hypertensive heart and chronic kidney disease with heart failure and stage 1 through stage 4 chronic kidney disease, or unspecified chronic kidney disease; I50.31 Acute diastolic (congestive) heart failure; N18.3 Chronic kidney disease, stage 3 (moderate); I34.0 Nonrheumatic mitral (valve) insufficiency; M15.9 Polyosteoarthritis, unspecified; B95.61 Methicillin susceptible Staphylococcus aureus infection as the cause of diseases classified elsewhere; Z96.661 Presence of right artificial ankle joint; Z79.899 Other long term (current) drug therapy
CPT/HCPCS: 36415; 80053; 82728; 82784; 83883; 84155; 84165; 85025; 99213

== ENCOUNTER → 2018-06-08 | Outpatient (CLI) | payer MEDICARE ==
--- NOTE | 2018-06-08 12:15 | Diagnostic Imaging Report ---
INDICATION: Screening The current study was also evaluated with a Computer Aided Detection (CAD) system. 3-D Tomographic imaging was also performed. FINDINGS: Comparison made with prior examination from 06/04/2017, 05/18/2016 and 05/23/2015. There are scattered fibroglandular densities bilaterally. There are a few benign type calcifications. There is no dominant mass, spiculated lesion or suspicious calcification identified. Skin, nipples and axilla are unremarkable. IMPRESSION: Category 2 benign ACR BI-RADS Category 2: Benign findings. Result letter will be mailed to the patient. Note: At least 10% of breast cancer is not imaged by mammography. Dictated by: Dictated on workstation # [id number]
== END ==
LOC: RAD 09:19
PROVIDERS: ATTEND Nurse Practitioner
DX: Z12.31 Encounter for screening mammogram for malignant neoplasm of breast (principal)
CPT/HCPCS: 77067

== ENCOUNTER 2018-11-16 13:04 | Outpatient (RCR) | payer MEDICARE ==
[2018-11-09 10:05] LABS: BASOPHILS % (AUTO) 1 % (0-10); EOSINOPHILS # (AUTO) 0.3 10^3/uL (0.0-0.3); EOSINOPHILS % (AUTO) 5 % (0-10); HEMATOCRIT 39 % (35-52); HEMOGLOBIN 12.8 G/DL (11.5-16.0); LYMPHOCYTES # (AUTO) 1.3 X 10^3 (1.0-4.0); LYMPHOCYTES % (AUTO) 25 % (12-44); MEAN CORPUSCULAR HEMOGLOBIN 30 PG (25-34); MEAN CORPUSCULAR HGB CONC 33 G/DL (32-36); MEAN CORPUSCULAR VOLUME 93 FL (80-99); MEAN PLATELET VOLUME 9.3 FL (7.4-10.4); MONOCYTES # (AUTO) 0.8 X 10^3 (0.0-1.0); MONOCYTES % (AUTO) 15 % (0-12); NEUTROPHILS # (AUTO) 2.8 X 10^3 (1.8-7.8); NEUTROPHILS % (AUTO) 54 % (42-75); PLATELET COUNT 298 10^3/uL (130-400); RED CELL DISTRIBUTION WIDTH 12.1 % (10.0-14.5); WHITE BLOOD COUNT 5.2 10^3/uL (4.3-11.0)
[2018-11-09 10:26] LABS: ALANINE AMINOTRANSFERASE 25 U/L (0-55); ALKALINE PHOSPHATASE 62 U/L (40-136); BILIRUBIN,TOTAL 0.3 MG/DL (0.1-1.0); BUN/CREATININE RATIO 16; CALCIUM 9.4 MG/DL (8.5-10.1); CARBON DIOXIDE 29 MMOL/L (21-32); CHLORIDE 99 MMOL/L (98-107); CREATININE SERUM 0.81 MG/DL (0.60-1.30); GFR ESTIMATED > 60; GLUCOSE 104 MG/DL (70-105); POTASSIUM 3.5 MMOL/L (3.6-5.0); SODIUM 137 MMOL/L (135-145); TOTAL PROTEIN 7.4 GM/DL (6.4-8.2)
[~2018-11-16 13:04] MED LIST changes: -DULO30CA48 PO; +DULO30CA49 PO; -DULO60CA58 PO; +DULO60CA59 PO; -TRAZ-189 PO; +TRAZ-222 PO
== END 2019-02-07 | disposition home or self-care (01) ==
LOC: ONC 13:04
PROVIDERS: ATTEND Internal Medicine Hematology & Oncology
DX: D47.2 Monoclonal gammopathy (principal); D64.9 Anemia, unspecified; I13.0 Hypertensive heart and chronic kidney disease with heart failure and stage 1 through stage 4 chronic kidney disease, or unspecified chronic kidney disease; I50.31 Acute diastolic (congestive) heart failure; N18.3 Chronic kidney disease, stage 3 (moderate); I34.0 Nonrheumatic mitral (valve) insufficiency; M15.9 Polyosteoarthritis, unspecified; B95.61 Methicillin susceptible Staphylococcus aureus infection as the cause of diseases classified elsewhere; Z96.661 Presence of right artificial ankle joint; Z79.899 Other long term (current) drug therapy
CPT/HCPCS: 36415; 80053; 82728; 82784; 83883; 84155; 84165; 85025; 99213

== ENCOUNTER → 2019-04-01 | Outpatient (CLI) | payer MEDICARE ==
[~2019-04-01] MED LIST changes: -TRAM50TA2 PO; -TRAZ-222 PO; +TRM50T PO; +TRZ50T PO
== END ==
LOC: CARD 12:44
PROVIDERS: ATTEND Internal Medicine Cardiovascular Disease
DX: I08.1 Rheumatic disorders of both mitral and tricuspid valves (principal); I11.9 Hypertensive heart disease without heart failure; M79.89 Other specified soft tissue disorders
CPT/HCPCS: 93306

== ENCOUNTER → 2019-04-16 | Outpatient (CLI) | payer MEDICARE ==
[~2019-04-16] VITALS: Ht 167 cm; Wt 82.0 kg
[~2019-04-16] MED LIST changes: +ACHD5005 PO; +CATHETER FLUSH 10 ML SYR IV PRN; -HYDR-3812 PO; +REGADENOSON 0.4 MG/5 ML SYR (LEXISCAN) IV ONE
[2019-04-16 08:45] VITALS: BP 161/85
[2019-04-16 08:52] VITALS: BP 145/74
--- NOTE | 2019-04-18 22:09 | STRESS TEST ---
DATE OF SERVICE: 04/16/2019 RESTING AND POST REGADENOSON TECHNETIUM-99M TETROFOSMIN SPECT CT IMAGING ORDERING PHYSICIAN: Dr. Tadeo. PRIMARY PHYSICIAN: Dr. Waggoner. CLINICAL DIAGNOSES: Shortness of breath, hypertension. Baseline images were carried out after injection of 10.42 mCi of technetium-99m Tetrofosmin. This was followed by 0.4 mg regadenoson and 30.6 mCi of technetium-99m Tetrofosmin for stress imaging. The electrocardiogram showed sinus rhythm at baseline. It did not change significantly with regadenoson infusion. The patient reported some lightheadedness following regadenoson infusion, which resolved in a few minutes. Review of images at rest and following stress does not indicate any significant perfusion defects consistent with significant myocardial ischemia or infarction. Gated images show normal global left ventricular systolic function with normal regional wall motion. Left ventricular ejection fraction is calculated to be 76%. Left ventricular end diastolic volume is 69 mL. TID is absent (1.07). CONCLUSIONS: 1. No evidence of any significant myocardial ischemia or infarction study. 2. Normal regional wall motion. 3. Normal global left ventricular systolic function with a calculated ejection fraction of 76%. Job ID: [id number] DocumentID: [id number] Dictated Date: 04/18/2019 17:59:16 Leak Patcher Date: 04/18/2019 22:08:25 Dictated By: TRELL TADEO MD, MA, FACP, FACC,
== END ==
LOC: CARD 07:38
PROVIDERS: ATTEND Internal Medicine Cardiovascular Disease
DX: I10 Essential (primary) hypertension (principal); M79.89 Other specified soft tissue disorders
CPT/HCPCS: 78452; 93017

== ENCOUNTER → 2019-07-02 | Outpatient (CLI) | payer MEDICARE ==
[~2019-07-02] MED LIST changes: -CATHETER FLUSH 10 ML SYR IV PRN; -REGADENOSON 0.4 MG/5 ML SYR (LEXISCAN) IV ONE
--- NOTE | 2019-07-06 12:37 | Diagnostic Imaging Report ---
INDICATION: Routine screening. COMPARISON: 06/08/2018 and 06/04/2017. TECHNIQUE: 2D and 3D bilateral screening mammography was performed with CAD. FINDINGS: Scattered fibroglandular densities are identified bilaterally. Benign calcifications are noted. No dominant mass or malignant appearing microcalcifications are identified. The axillae are unremarkable. IMPRESSION: No mammographic features suspicious for malignancy are identified. ACR BI-RADS Category 2: Benign findings. Result letter will be mailed to the patient. Note: At least 10% of breast cancer is not imaged by mammography. Dictated by: Dictated on workstation # [id number]
== END ==
LOC: RAD 15:07
PROVIDERS: ATTEND Internal Medicine
DX: Z12.31 Encounter for screening mammogram for malignant neoplasm of breast (principal)
CPT/HCPCS: 77063; 77067

== ENCOUNTER 2019-08-03 20:51 | Emergency (ER) | payer MEDICARE ==
[~2019-08-03] VITALS: Ht 167.7 cm; Wt 83.4 kg
[2019-08-03] MEDS ORDERED: fentaNYL INJECTION 100 MCG/2 ML AMP IVP ONE (21:15)
--- NOTE | 2019-08-03 21:18 | ED Cardiac General ---
History of Present Illness General Chief Complaint: Cardiac/General Problems Stated Complaint: HIGH BP Source: patient Exam Limitations: no limitations History of Present Illness Date Seen by Provider: Aug 03, 2019 Time Seen by Provider: 20:59 Initial Comments Patient presents ER by private conveyance with chief complaint of increased pain in her left knee 8 days after replacement by Dr. Colvin at [place], [place]. This is resulted in her having high blood pressure ever since her surgery. She says even while she was inpatient she had high blood pressure but never as high as 180-190 systolic. She takes Bystolic and Lasix and talked to her doctor's office which recommended she talk to Dr. 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 She cut him all day unsuccessfully. Finally under instructions from the nurse practitioner working for the surgeon she was told to take 5 mg of amlodipine which she used to take in the past but has been off for a few years because it m ezekiel her blood pressure go too low. She took the 5 mg approximately 4 to 5:00 tonight with no success in controlling her blood pressure. She has hydrocodone 10 x 3 25 she takes every 4 hours on the clock as well as tramadol she takes 4-6 times a day. She been on tramadol for 2-3 years for her chronic low back pain. She's not noticed any increased redness or swelling pain or Shortness of breath chest pain. 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 She follows with Dr. Basilia Rosas, Dr. Carlyle Colvin. She sees a surgeon for her right ankle replacement at . She rates her pain 8 out of 10. Echo 03/2019 EF 60-65% by Dr. Tadeo. Cardiac Catheterization 2007: NOC[facility] by Dr. Gonzalez. Allergies and Home Medications Allergies Coded Allergies: vancomycin (Verified Allergy, Unknown, KIDNEY FAILURE/RASH, 10/01/17) Home Medications Acetaminophen 500 Mg Tablet, 1,000 MG PO HS, (Reported) Alprazolam 1 Mg Tablet, 1 MG PO DAILY PRN for ANXIETY, (Reported) Amlodipine Besylate 10 Mg Tablet, 10 MG PO DAILY, (Reported) Ascorbate Calcium 500 Mg Tablet, 500 MG PO DAILY, (Reported) Bimatoprost 2.5 Ml Drops, 1 DROP OU HS, (Reported) Cholecalciferol (Vitamin D3) 2,000 Unit Tablet, 2,000 UNIT PO DAILY, (Reported) Cyclosporine 5.5 Ml Drops, 1 DROP OU BID, (Reported) Daptomycin 500 Mg Vial, 500 MG IV DAILY, (Reported) Duloxetine HCl 60 Mg Capsule.dr, 60 MG PO HS, (Reported) Duloxetine HCl 30 Mg Capsule.dr, 30 MG PO HS, (Reported) Ferrous Sulfate 325 Mg Tablet.dr, 325 MG PO DAILY, (Reported) Furosemide 40 Mg Tablet, 40 MG PO DAILY, (Reported) Hydrochlorothiazide 25 Mg Tablet, 25 MG PO DAILY, (Reported) Hydrocodone Bit/Acetaminophen 1 Each Tablet, 1 EACH PO Q4H PRN for PAIN-MILD, (Reported) Lactobacillus Acidophilus 1 Each Capsule, 1 EACH PO DAILY, (Reported) Metoprolol Tartrate 100 Mg Tablet, 100 MG PO BID, (Reported) Ondansetron HCl 4 Mg Tab, 4 MG PO Q8H PRN for NAUSEA/VOMITING, (Reported) Potassium Chloride 20 Meq Tablet.er, 20 MEQ PO BID WITH MEALS, (Reported) Pramipexole Di-HCl 0.125 Mg Tablet, 0.125 MG PO HS, (Reported) Ranitidine HCl 150 Mg Tablet, 150 MG PO BID, (Reported) Rifampin 300 Mg Capsule, 300 MG PO BID, (Reported) Timolol 5 Ml Drops, 1 DROP OU DAILY, (Reported) Trazodone HCl 50 Mg Tablet, 50 MG PO HS, (Reported) Patient Home Medication List Home Medication List Reviewed: Yes Review of Systems Review of Systems Constitutional: No chills, No fever, No malaise EENTM: No Blurred Vision, No Double Vision Respiratory: Denies Cough, Denies Shortness of Air, Denies SOA at Rest Cardiovascular: Denies Chest Pain; Edema; Denies Irregular Heart Rate, Denies Lightheadedness Gastrointestinal: Denies Abdominal Pain, Denies Constipated, Denies Diarrhea, Denies Nausea Genitourinary: Denies Burning, Denies Discharge Musculoskeletal: No back pain, No gout Skin: No change in color, No pruritus Psychiatric/Neurological: Denies Headache, Denies Numbness All Other Systems Reviewed Negative Unless Noted: Yes Past Dnjiidv-Xrsufq-Tkdqbx Hx Patient Social History Alcohol Use: Denies Use Recreational Drug Use: No Smoking Status: Never a Smoker 2nd Hand Smoke Exposure: No Recent Foreign Travel: No Contact w/Someone Who Travel: No Recent Hopitalizations: No Immunizations Up To Date Date of Pneumonia Vaccine: Nov 10, 2014 Date of Influenza Vaccine: Oct 30, 2014 Seasonal Allergies Seasonal Allergies: No Past Medical History Surgeries: Yes (TONCIL,LUMBAR,R TOT KNEE,R ANKLE FUSION) Tonsillectomy Respiratory: No Pneumonia Cardiac: Yes Hypertension Neurological: No Reproductive Disorders: No Gastrointestinal: No Musculoskeletal: Yes (OSTEOARTHRITIS; BROKEN PELVIS - NO SURGERY) Arthritis, Chronic Back Pain Endocrine: No Glaucoma Cancer: No Psychosocial: No Integumentary: No Family Medical History BREAST CANCER 19 MOTHER HEART DISEASE 19 FATHER LUPUS 19 FATHER RHEUMATOID ARTHRITIS 19 FATHER SCLERODERMA 19 FATHER Physical Exam Vital Signs Vital Signs - First Documented 08/03/19 20:56 Temp 36.5 Pulse 87 Resp 17 B/P (MAP) 198/101 (133) Pulse Ox 98 O2 Delivery Room Air Capillary Refill : Height, Weight, BMI Height: 5'6.00" Weight: 160lbs. 0.0oz. 72.182495km; 29.40 BMI Method:Stated General Appearance: WD/WN, Mild Distress HEENT: PERRL/EOMI, Pharynx Normal, Moist Mucous Membranes Neck: Full Range of Motion, Normal Inspection Respiratory: Lungs Clear, Normal Breath Sounds, No Accessory Muscle Use, No Respiratory Distress Cardiovascular: Regular Rate, Rhythm, No Edema, Normal Peripheral Pulses Gastrointestinal: Normal Bowel Sounds, Non Tender, Soft Extremity: Normal Capillary Refill, No Calf Tenderness, Pedal Edema (1+ lower extremity edema left side. Dressing on a closed, warm, dry and intact wound without erythema, induration or exudate.) Neurologic/Psychiatric: Alert, Oriented x3, No Motor/Sensory Deficits, Normal Mood/Affect Skin: Normal Color, Warm/Dry Progress/Results/Core Measures Results/Orders Lab Results Laboratory Tests Test 08/03/19 21:05 08/03/19 22:10 Range/Units White Blood Count 8.7 4.3-11.0 10^3/uL Red Blood Count 3.84 L 4.35-5.85 10^6/uL Hemoglobin 11.7 11.5-16.0 G/DL Hematocrit 35 35-52 % Mean Corpuscular Volume 92 80-99 FL Mean Corpuscular Hemoglobin 31 25-34 PG Mean Corpuscular Hemoglobin Concent 33 32-36 G/DL Red Cell Distribution Width 13.0 10.0-14.5 % Platelet Count 425 H 130-400 10^3/uL Mean Platelet Volume 9.1 7.4-10.4 FL Neutrophils (%) (Auto) 71 42-75 % Lymphocytes (%) (Auto) 16 12-44 % Monocytes (%) (Auto) 13 H 0-12 % Eosinophils (%) (Auto) 1 0-10 % Basophils (%) (Auto) 0 0-10 % Neutrophils # (Auto) 6.1 1.8-7.8 X 10^3 Lymphocytes # (Auto) 1.4 1.0-4.0 X 10^3 Monocytes # (Auto) 1.1 H 0.0-1.0 X 10^3 Eosinophils # (Auto) 0.1 0.0-0.3 10^3/uL Basophils # (Auto) 0.0 0.0-0.1 10^3/uL Sodium Level 135 135-145 MMOL/L Potassium Level 4.0 3.6-5.0 MMOL/L Chloride Level 96 L 98-107 MMOL/L Carbon Dioxide Level 30 21-32 MMOL/L Anion Gap 9 5-14 MMOL/L Blood Urea Nitrogen 15 7-18 MG/DL Creatinine 0.86 0.60-1.30 MG/DL Estimat Glomerular Filtration Rate > 60 BUN/Creatinine Ratio 17 Glucose Level 130 H 70-105 MG/DL Calcium Level 9.7 8.5-10.1 MG/DL Corrected Calcium 9.9 8.5-10.1 MG/DL Total Bilirubin 0.7 0.1-1.0 MG/DL Aspartate Amino Transf (AST/SGOT) 24 5-34 U/L Alanine Aminotransferase (ALT/SGPT) 28 0-55 U/L Alkaline Phosphatase 90 40-136 U/L Troponin I < 0.028 <0.028 NG/ML C-Reactive Protein High Sensitivity 4.77 H 0.00-0.50 MG/DL B-Type Natriuretic Peptide 123.7 H <100.0 PG/ML Total Protein 7.2 6.4-8.2 GM/DL Albumin 3.8 3.2-4.5 GM/DL Urine Color YELLOW Urine Clarity CLEAR Urine pH 7.0 5-9 Urine Specific [place] 1.010 L 1.016-1.022 Urine Protein NEGATIVE NEGATIVE Urine Glucose (UA) NEGATIVE NEGATIVE Urine Ketones NEGATIVE NEGATIVE Urine Nitrite NEGATIVE NEGATIVE Urine Bilirubin NEGATIVE NEGATIVE Urine Urobilinogen 1.0 < = 1.0 MG/DL Urine Leukocyte Esterase NEGATIVE NEGATIVE Urine RBC (Auto) 1+ H NEGATIVE Urine RBC 2-5 H /HPF Urine WBC 0-2 /HPF Urine Crystals NONE /LPF Urine Bacteria TRACE /HPF Urine Casts NONE /LPF Urine Mucus NEGATIVE /LPF Urine Culture Indicated NO My Orders Orders - ADELIA MELISSA Cbc With Automated Diff (08/03/19 21:08) Comprehensive Metabolic Panel (08/03/19 21:08) Troponin I (08/03/19 21:08) Continuous Ekg Monitoring (08/03/19 21:08) Ekg Tracing (08/03/19 21:08) Chest 1 View, Ap/Pa Only (08/03/19 21:08) BNP (08/03/19 21:08) Hs C Reactive Protein (08/03/19 21:08) Ua Culture If Indicated (08/03/19 21:08) Fentanyl Injection (Sublimaze Injection (08/03/19 21:15) Medications Given in ED Current Medications Medications Dose Ordered Sig/Slade Route Start Time Stop Time Status Last Admin Dose Admin Fentanyl Citrate 100 mcg ONCE ONCE IVP 08/03/19 21:15 08/03/19 21:16 DC 08/03/19 21:16 100 MCG Vital Signs/I&O 08/03/19 20:56 Temp 36.5 Pulse 87 Resp 17 B/P (MAP) 198/101 (133) Pulse Ox 98 O2 Delivery Room Air Progress Progress Note #1: Time: 21:27 Progress Note Left knee has some mild edema but so does the right lower extremity. No evidence of infection on clinical exam. Vital signs are aseptic. Patient states she does wear oxygen. First step and managing her hypertension is to control her pain. 100 g of fentanyl later and the patient's oxygen sats dropped to about 85% on room air. We will rule out infection. Urinalysis labs CRP. If this looks okay as well as an EKG, chest x-ray and BNP then we will address her blood pressure with blood pressure medicines. Progress Note #2: Time: 22:38 Progress Note The patient reports a significant reduction in her pain and also in her blood pr essure now in the 150/70 range. Suspect that her high blood pressures related to pain. Her labs came back normal except for spurious creatinine over 30. Our lab indicates that there must be something wrong with the calibration of the machine and are going to re-run the test after day correct the machine. We have explained this to the patient and she is okay with waiting. We have suggested oxycodone as opposed to hydrocodone for better pain control and she says when she was in the hospital the oxycodone did not seem to work as well for her. We may suggest she just use amlodipine 5-10 mg a day for the next week or so as well as she may take an additional half of a tablet of 10 mg hydrocodone for breakthrough pain. Ultimately we will defer to the orthopedic surgeon for appropriate outpatient pain management. The patient's oxygen saturations are in the mid to upper 90s without supplemental oxygen. Initial ECG Impression Date: Aug 03, 2019 Initial ECG Impression Time: 21:08 Initial ECG Rate: 77 Initial ECG Rhythm: Normal Sinus Initial ECG Intervals: Normal Initial ECG Impression: Normal Initial ECG Comparisson: Unchanged Comment Normal sinus rhythm without clinically relevant ST elevation or depression. Diagnostic Imaging Diagonstic Imaging: Xray Plain Films/CT/US/NM/MRI: chest (1v) Comments [facility], [place] NAME: CHANO JACQUES [facility] REC#: [id number] PT STATUS: REG ER : 1945 PHYSICIAN: ADELIA MELISSA MD ADMIT DATE: 08/03/19/ER Draft Date of Exam:08/03/19 CHEST 1 VIEW, AP/PA ONLY INDICATION :Elevated blood pressure EXAMINATION: Chest 08/03/2019 COMPARISON: 10/02/2017. FINDINGS: The heart is unremarkable. The pulmonary vasculature is normal. The lungs appear clear. No infiltrates, effusions or pneumothorax. IMPRESSION: 1. No acute process. Dictated on workstation # [id number] Dict: 08/03/192141 Trans: 08/03/192145 [facility] [id number] Interpreted by: KAREN MARLEY MD Electronically signed by: Reviewed: Reviewed by Me Departure Impression Primary Impression: Hypertensive urgency Additional Impressions: Left knee pain Qualified Codes: M25.562 - Pain in left knee S/P total knee arthroplasty Qualified Codes: Z96.652 - Presence of left artificial knee joint Disposition: HOME, SELF-CARE Condition: Stable Departure-Patient Inst. Decision time for Depature: 22:45 Referrals: BASILIA ROSAS MD (PCP/Family) Primary Care Physician Patient Instructions: Knee Pain (DC) Add. Discharge Instructions: Continue using the hydrocodone as prescribed in addition to the medications. Topical creams such as icy hot, Biofreeze over intact skin is recommended. Follow-up with your primary care doctor and/or orthopedic surgeon for continued pain management. Amlodipine 5 mg daily for now. If your blood pressure is still elevated above 180/100 4-6 hours after you take amlodipine should take a second dose of 5 mg for a total of 10 mg daily. Plan follow-up within the next week or 2 with primary care to discuss management of your blood pressure and pain. For severe pain 8 out of 10 or more associated with elevated blood pressure he may take an extra 5 mg hydrocodone every 6 hours. All discharge instructions reviewed with patient and/or family. Voiced understanding. Scripts Hydrocodone/Acetaminophen (Hydrocodone-Acetamin 5-325 mg) 1 Each Tablet 1 EACH PO Q6H PRN for PAIN-SEVERE (8-10), #15 TAB 0 Refills Prov: ADELIA MELISSA 08/03/19 ADELIA MELISSA Aug 03, 2019 21:18
[2019-08-03 21:22] LABS: BASOPHILS % (AUTO) 0 % (0-10); EOSINOPHILS # (AUTO) 0.1 10^3/uL (0.0-0.3); EOSINOPHILS % (AUTO) 1 % (0-10); HEMATOCRIT 35 % (35-52); HEMOGLOBIN 11.7 G/DL (11.5-16.0); LYMPHOCYTES # (AUTO) 1.4 X 10^3 (1.0-4.0); LYMPHOCYTES % (AUTO) 16 % (12-44); MEAN CORPUSCULAR HEMOGLOBIN 31 PG (25-34); MEAN CORPUSCULAR HGB CONC 33 G/DL (32-36); MEAN CORPUSCULAR VOLUME 92 FL (80-99); MEAN PLATELET VOLUME 9.1 FL (7.4-10.4); MONOCYTES # (AUTO) 1.1 X 10^3 (0.0-1.0); MONOCYTES % (AUTO) 13 % (0-12); NEUTROPHILS # (AUTO) 6.1 X 10^3 (1.8-7.8); NEUTROPHILS % (AUTO) 71 % (42-75); PLATELET COUNT 425 10^3/uL (130-400); WHITE BLOOD COUNT 8.7 10^3/uL (4.3-11.0)
[2019-08-03 21:30] LABS: ALBUMIN 3.8 GM/DL (3.2-4.5); CHLORIDE 96 MMOL/L (98-107); SODIUM 135 MMOL/L (135-145)
[2019-08-03 21:31] LABS: CALCIUM 9.7 MG/DL (8.5-10.1)
[2019-08-03 21:33] LABS: GLUCOSE 130 MG/DL (70-105); TOTAL PROTEIN 7.2 GM/DL (6.4-8.2)
[2019-08-03 21:34] LABS: BILIRUBIN,TOTAL 0.7 MG/DL (0.1-1.0); CARBON DIOXIDE 30 MMOL/L (21-32)
[2019-08-03 21:36] LABS: ALKALINE PHOSPHATASE 90 U/L (40-136)
[2019-08-03 21:39] LABS: ALANINE AMINOTRANSFERASE 28 U/L (0-55)
--- NOTE | 2019-08-03 21:46 | Diagnostic Imaging Report ---
INDICATION :Elevated blood pressure EXAMINATION: Chest 08/03/2019 COMPARISON: 10/02/2017. FINDINGS: The heart is unremarkable. The pulmonary vasculature is normal. The lungs appear clear. No infiltrates, effusions or pneumothorax. IMPRESSION: 1. No acute process. Dictated by: Dictated on workstation # [id number]
--- NOTE | 2019-08-03 21:54 | NUR ---
REPORT GIVEN TO YASMANI MYLES TO ASSUME PT CARE AT THIS TIME.
[2019-08-03 22:20] LABS: BILIRUBIN,URINE NEGATIVE (NEGATIVE); CLARITY,URINE CLEAR; COLOR,URINE YELLOW; GLUCOSE, URINE (UA) NEGATIVE (NEGATIVE); KETONES,URINE NEGATIVE (NEGATIVE); LEUKOCYTE ESTERASE ,URINE NEGATIVE (NEGATIVE); NITRITE,URINE NEGATIVE (NEGATIVE); PROTEIN,URINE NEGATIVE (NEGATIVE)
[2019-08-03 22:26] LABS: BACTERIA,URINE TRACE /HPF; WBC,URINE 0-2 /HPF
[2019-08-03 22:47] LABS: BUN/CREATININE RATIO 17; CREATININE SERUM 0.86 MG/DL (0.60-1.30); GFR ESTIMATED > 60
[2019-08-03] MEDS ORDERED: HYDR-83 PO (22:52)
[2019-08-03 22:55] VITALS: BP 152/65
== END 2019-08-03 22:55 | disposition home or self-care (01) ==
LOC: EDUNIT# 20:51 → ER 20:52
DX: I16.0 Hypertensive urgency (principal); M25.562 Pain in left knee; G89.29 Other chronic pain; M54.5 Low back pain; I10 Essential (primary) hypertension; Z88.1 Allergy status to other antibiotic agents; Z80.3 Family history of malignant neoplasm of breast; Z82.49 Family history of ischemic heart disease and other diseases of the circulatory system; Z96.652 Presence of left artificial knee joint; Z79.891 Long term (current) use of opiate analgesic; Z95.9 Presence of cardiac and vascular implant and graft, unspecified
CPT/HCPCS: 36415; 71045; 80053; 81000; 83880; 84484; 85025; 86141; 93005; 96374

== ENCOUNTER 2019-09-06 13:54 | Outpatient (RCR) | payer MEDICARE ==
[2019-08-30 10:13] LABS: BASOPHILS % (AUTO) 0 % (0-10); EOSINOPHILS # (AUTO) 0.2 10^3/uL (0.0-0.3); EOSINOPHILS % (AUTO) 3 % (0-10); HEMATOCRIT 40 % (35-52); HEMOGLOBIN 12.8 G/DL (11.5-16.0); LYMPHOCYTES % (AUTO) 14 % (12-44); MEAN CORPUSCULAR HEMOGLOBIN 30 PG (25-34); MEAN CORPUSCULAR HGB CONC 32 G/DL (32-36); MEAN CORPUSCULAR VOLUME 94 FL (80-99); MEAN PLATELET VOLUME 9.1 FL (7.4-10.4); MONOCYTES # (AUTO) 0.7 X 10^3 (0.0-1.0); MONOCYTES % (AUTO) 11 % (0-12); NEUTROPHILS # (AUTO) 4.8 X 10^3 (1.8-7.8); NEUTROPHILS % (AUTO) 72 % (42-75); PLATELET COUNT 335 10^3/uL (130-400); WHITE BLOOD COUNT 6.7 10^3/uL (4.3-11.0)
[2019-08-30 10:40] LABS: ALANINE AMINOTRANSFERASE 21 U/L (0-55); ALKALINE PHOSPHATASE 63 U/L (40-136); BILIRUBIN,TOTAL 0.3 MG/DL (0.1-1.0); BUN/CREATININE RATIO 14; CALCIUM 9.7 MG/DL (8.5-10.1); CARBON DIOXIDE 27 MMOL/L (21-32); CHLORIDE 102 MMOL/L (98-107); CREATININE SERUM 0.87 MG/DL (0.60-1.30); GFR ESTIMATED > 60; GLUCOSE 106 MG/DL (70-105); POTASSIUM 4.8 MMOL/L (3.6-5.0); SODIUM 138 MMOL/L (135-145); TOTAL PROTEIN 7.2 GM/DL (6.4-8.2)
== END 2019-11-28 | disposition home or self-care (01) ==
LOC: ONC 13:54
PROVIDERS: ATTEND Internal Medicine Hematology & Oncology
DX: D47.2 Monoclonal gammopathy (principal); D64.9 Anemia, unspecified; I13.0 Hypertensive heart and chronic kidney disease with heart failure and stage 1 through stage 4 chronic kidney disease, or unspecified chronic kidney disease; I50.31 Acute diastolic (congestive) heart failure; N18.30 Chronic kidney disease, stage 3 unspecified; I34.0 Nonrheumatic mitral (valve) insufficiency; M15.9 Polyosteoarthritis, unspecified; M79.89 Other specified soft tissue disorders; B95.61 Methicillin susceptible Staphylococcus aureus infection as the cause of diseases classified elsewhere; Z96.661 Presence of right artificial ankle joint; Z79.899 Other long term (current) drug therapy
CPT/HCPCS: 80053; 82784; 83883; 84155; 84165; 85025; 99213

== ENCOUNTER 2019-09-29 09:00 | Outpatient (RCR) | payer MEDICARE | END 2019-11-12 14:52 | disposition home or self-care (01) | PROVIDERS: ATTEND Nurse Practitioner Family | DX: M54.5 Low back pain (principal); Z96.652 Presence of left artificial knee joint ==

== ENCOUNTER 2020-03-01 15:00 | Outpatient (RCR) | payer MEDICARE ==
[2020-02-23 10:49] LABS: BASOPHILS % (AUTO) 1 % (0-10); EOSINOPHILS # (AUTO) 0.1 10^3/uL (0.0-0.3); EOSINOPHILS % (AUTO) 3 % (0-10); HEMATOCRIT 44 % (35-52); LYMPHOCYTES # (AUTO) 1.1 10^3/uL (1.0-4.0); LYMPHOCYTES % (AUTO) 22 % (12-44); MEAN CORPUSCULAR HEMOGLOBIN 30 pg (25-34); MEAN CORPUSCULAR HGB CONC 32 g/dL (32-36); MEAN CORPUSCULAR VOLUME 93 fL (80-99); MEAN PLATELET VOLUME 8.9 fL (9.0-12.2); MONOCYTES # (AUTO) 0.6 10^3/uL (0.0-1.0); MONOCYTES % (AUTO) 11 % (0-12); NEUTROPHILS # (AUTO) 3.3 10^3/uL (1.8-7.8); NEUTROPHILS % (AUTO) 64 % (42-75); PLATELET COUNT 291 10^3/uL (130-400); WHITE BLOOD COUNT 5.1 10^3/uL (4.3-11.0)
[2020-02-23 11:16] LABS: ALANINE AMINOTRANSFERASE 25 U/L (0-55); ALBUMIN 4.3 GM/DL (3.2-4.5); ALKALINE PHOSPHATASE 58 U/L (40-136); BILIRUBIN,TOTAL 0.4 MG/DL (0.1-1.0); BUN/CREATININE RATIO 20; CALCIUM 9.6 MG/DL (8.5-10.1); CARBON DIOXIDE 31 MMOL/L (21-32); CHLORIDE 101 MMOL/L (98-107); CREATININE SERUM 0.84 MG/DL (0.60-1.30); GFR ESTIMATED > 60; GLUCOSE 78 MG/DL (70-105); POTASSIUM 4.5 MMOL/L (3.6-5.0); SODIUM 139 MMOL/L (135-145); TOTAL PROTEIN 7.6 GM/DL (6.4-8.2)
[~2020-03-01 15:00] MED LIST changes: +AMLO-250 PO; -AMLO5TAB9 PO; -CALC-6 PO; +CALC1TAB84 PO; +CLN.1T PO; -CLON0.1T PO; -LISI40TA PO; +LISI40TA9 PO
== END 2020-05-23 | disposition home or self-care (01) ==
LOC: ONC 15:00
PROVIDERS: ATTEND Internal Medicine Hematology & Oncology
DX: D47.2 Monoclonal gammopathy (principal)
CPT/HCPCS: 80053; 82784; 83883; 84155; 84165; 85025; 99213

== ENCOUNTER → 2020-07-24 | Outpatient (CLI) | payer MEDICARE ==
--- NOTE | 2020-07-24 14:46 | Diagnostic Imaging Report ---
INDICATION: Routine screening. Comparison is made with prior mammogram from 06/30/2019 and 06/08/2018. 2-D and 3-D bilateral screening mammography was performed with CAD. Scattered fibroglandular densities are identified bilaterally. The parenchymal pattern is stable. No dominant mass or malignant appearing microcalcifications are seen. Axillae are unremarkable. IMPRESSION: BI-RADS Category 1 No mammographic features suspicious for malignancy are identified. ACR BI-RADS Category 1: Negative. Result letter will be mailed to the patient. Note: At least 10% of breast cancer is not imaged by mammography. Dictated by: Dictated on workstation # [id number]
== END ==
LOC: RAD 09:55
PROVIDERS: ATTEND Nurse Practitioner Family
DX: Z12.31 Encounter for screening mammogram for malignant neoplasm of breast (principal)
CPT/HCPCS: 77063; 77067

== ENCOUNTER 2020-08-10 06:43 | Outpatient (CLI) | payer MEDICARE ==
[~2020-08-10] VITALS: Ht 167.7 cm; Wt 83.1 kg
[2020-08-10] MEDS ORDERED: ATOR20TA66 PO (13:59)
[2020-08-10] MEDS ORDERED: CALC600T91 PO (14:05)
[2020-08-10] MEDS ORDERED: TRAM50TA3 PO (14:05)
[2020-08-10] MEDS ORDERED: FLAX10004 PO (14:05)
[2020-08-10] MEDS ORDERED: CYCL10TA9 PO (14:05)
[2020-08-10] MEDS ORDERED: NEBI20TA2 PO (14:05)
[2020-08-10] MEDS ORDERED: ASPI-1238 PO (14:05)
[2020-08-10] MEDS ORDERED: AMLO5TAB4 PO (14:05)
[2020-08-10] MEDS ORDERED: CHOL500049 PO (14:07)
== END 2020-08-10 14:22 | disposition home or self-care (01) ==
LOC: PREOP 06:43
PROVIDERS: ATTEND Internal Medicine
DX: Z01.818 Encounter for other preprocedural examination (principal)

== ENCOUNTER 2020-08-18 07:32 | Day surgery (SDC) | payer MEDICARE ==
--- NOTE | 2020-08-01 07:01 | HISTORY AND PHYSICAL ---
DATE OF SERVICE: COLONOSCOPY HISTORY AND PHYSICAL DATE OF ADMISSION: HISTORY OF PRESENT ILLNESS: The patient is a 75-year-old white female referred by Dr. Waggoner for screening colonoscopy. She had one other colonoscopy performed by myself in 2007, which was normal. She does have one uncle with a history of colon cancer. No known first-degree relatives. She reports her bowel habits have been stable. Denies bright red blood per rectum, melena or change in weights. PAST MEDICAL HISTORY: Significant for Sjogren syndrome and osteoarthritis. She has had bilateral knee replacements due to arthritis. Also had an ankle replacement in 2018, at week 5 postop, she developed infection of the hardware with sepsis. We were able to clear the infection removing only reportedly the plastic portions of the hardware. She has a history of hypertension and no known history of coronary artery disease. She also has a history of osteoporosis. ALLERGIES: Include VANCOMYCIN, which caused significant angioedema of the mouth and throat requiring ICU admission. PAST SURGICAL HISTORY: Bilateral total knee replacement and right ankle replacement as well as lumbar fusion surgery. She has had no reported abdominal surgery. FAMILY HISTORY: Mother of breast cancer at the age of 79, she was diagnosed at the age of 71. Father of complications of coronary artery disease. Also had lupus at the age of 70. SOCIAL HISTORY: She has no past smoking history. She is retired and . No significant past alcohol intake history. REVIEW OF SYSTEMS: CONSTITUTIONAL: Denies night sweats, chills or fever. GASTROINTESTINAL: As per HPI. CARDIAC: The patient denies chest pain, dyspnea on exertion, orthopnea, PND or pedal edema. PULMONARY: Denies cough or wheezing. PHYSICAL EXAMINATION: GENERAL: Reveals a pleasant white female in no acute distress. VITAL SIGNS: Weight 186.6 pounds and blood pressure 136/70. HEENT: Unremarkable. Sclerae nonicteric. NECK: Revealed no JVD, adenopathy or bruits. ABDOMEN: Soft and supple. Mild bilateral lower quadrant discomfort to palpation is present. EXTREMITIES: Reveal no cyanosis, clubbing or edema. ASSESSMENT AND PLAN: The patient is being set up for screening colonoscopy. Prep instructions with Suprep kit were given and questions were answered. I thank you for the referral of this pleasant lady. Job ID: [id number] DocumentID: [id number] Dictated Date: 07/25/2020 13:36:11 Endbander Date: 07/25/2020 14:33:19 Dictated By: STEPAN HARPER MD
[~2020-08-18] VITALS: Ht 167.7 cm; Wt 83.1 kg
[~2020-08-18 07:32] MED LIST changes: +AMLO5TAB4 PO; +ASPI-1238 PO; +CALC600T91 PO; +CHOL500049 PO; +FLAX10004 PO; +NEBI20TA2 PO; +TRAM50TA3 PO
[2020-08-18] MEDS ORDERED: LACTATED RINGERS 1,000 ML IV STA (07:33)
[2020-08-18] MEDS ORDERED: LACTATED RINGERS 1,000 ML IV ONE (07:35)
[2020-08-18 07:44] VITALS: BP 151/78
[2020-08-18] MEDS ORDERED: LIDOCAINE JELLY 2% 6 ML SYRINGE MM PRN (07:45)
[2020-08-18] MEDS ORDERED: PROPOFOL INJECTION 50 ML IV ONE (07:47)
--- NOTE | 2020-08-18 08:26 | Pre-Op Note & Conscious Sedat ---
Pre-Operative Progress Note H&P Reviewed The H&P was reviewed, patient examined and no changes noted. Date H&P Reviewed: Aug 18, 2020 Time H&P Reviewed: 07:55 Conscious Sedation Pre-Proced ASA Score 2 For ASA 3 and 4: Consider anesthesia and medical clearance. Also, for patients with a history of failed moderate sedation consider anesthesia. Airway Lungs Heart ASA score ASA 1: a normal healthy patient ASA 2: a patient with a mild systemic disease (mid diabetes, controlled hypertension, obesity ASA 3: a patient with a severe systemic disease that limits activity (angina, COPD, prior Myocardial infarction) ASA 4: a patient with an incapacitating disease that is a constant threat to life (CHF, renal failure) ASA 5: a moribund patient not expected to survive 24 hrs. (ruptured aneurysm) ASA 6: a declared brain- patient whose organs are being harvested. For emergent operations, add the letter E after the classification Mallampati Classification Grade 1 Sedation Plan Analgesia, Amnesia, Plan communicated to team members, Discussed options with patient/fam, Discussed risks with patient/fam The patient is an appropriate candidate to undergo the planned procedure, sedation, and anesthesia. The patient immediately re-assessed prior to indication. STEPAN HARPER MD Aug 18, 2020 08:26
[2020-08-18 08:55] VITALS: BP 126/68
[2020-08-18 09:00] VITALS: BP 124/61
[2020-08-18 09:20] VITALS: BP 129/57
[2020-08-18 09:21] VITALS: BP 129/57
--- NOTE | 2020-08-18 11:04 | Anesthesia-General Post-Op ---
MAC Patient Condition Mental Status/LOC: Same as Preop Cardiovascular: Satisfactory Nausea/Vomiting: Absent Respiratory: Satisfactory Pain: Controlled Complications: Absent Post Op Complications Complications None Follow Up Care/Instructions Patient Instructions None needed. Anesthesiology Discharge Order Discharge Order Patient is doing well, no complaints, stable vital signs, no apparent adverse anesthesia problems. No complications reported per nursing. OBIE PARISH CRNA Aug 18, 2020 11:04
--- NOTE | 2020-08-18 13:22 | OPERATIVE REPORT ---
DATE OF SERVICE: COLONOSCOPY SUMMARY INDICATION FOR THE PROCEDURE: Screening colonoscopy. The patient was placed in left lateral decubitus position. Prior to undergoing colonoscopy, digital rectal evaluation was performed. Anal sphincter tone was normal and the perianal reflexes intact. No abnormalities were noted on digital inspection of anal canal or distal rectal vault. The colonoscope was then inserted into the rectum and under direct visualization advanced to the cecum. The cecum was identified by identification of ileocecal valve and cecal strap. Quality of prep was fair. FINDINGS: There was no evidence for internal or external hemorrhoids and the rectum was unremarkable. Several small to medium size sigmoid diverticulum were present without evidence for diverticulitis. No other sigmoid colonic abnormalities were appreciated. The descending colon, splenic flexure, transverse colon, hepatic flexure, ascending colon and cecum were unremarkable. ASSESSMENT: Mild diverticular disease confined to the sigmoid colon was present with otherwise normal colonoscopy to the cecum. The patient reports considering the fact that there are no first-degree relatives in the family with colon cancer and this is her second colonoscopy without evidence for neoplasia in light of age and medical comorbidities, would not recommend future screening colonoscopy. I thank you for the referral of this pleasant lady. Job ID: [id number] DocumentID: [id number] Dictated Date: 08/18/2020 09:04:42 [facility] [employer] Date: 08/18/2020 13:22:06 Dictated By: STEPAN HARPER MD
== END 2020-08-18 09:35 | disposition home or self-care (01) ==
LOC: ENDO 07:32
PROVIDERS: ATTEND Internal Medicine
DX: Z12.11 Encounter for screening for malignant neoplasm of colon (principal); I10 Essential (primary) hypertension; R06.02 Shortness of breath; M19.90 Unspecified osteoarthritis, unspecified site; M35.00 Sjogren syndrome, unspecified; M81.0 Age-related osteoporosis without current pathological fracture; Z79.82 Long term (current) use of aspirin; Z99.81 Dependence on supplemental oxygen; Z79.899 Other long term (current) drug therapy

== ENCOUNTER 2020-09-11 09:53 | Outpatient (RCR) | payer MEDICARE ==
[2020-08-28 10:25] LABS: BASOPHILS # (AUTO) 0.1 10^3/uL (0.0-0.1); BASOPHILS % (AUTO) 1 % (0-10); EOSINOPHILS # (AUTO) 0.1 10^3/uL (0.0-0.3); EOSINOPHILS % (AUTO) 3 % (0-10); HEMATOCRIT 42 % (35-52); HEMOGLOBIN 13.7 g/dL (11.5-16.0); LYMPHOCYTES # (AUTO) 0.8 10^3/uL (1.0-4.0); LYMPHOCYTES % (AUTO) 19 % (12-44); MEAN CORPUSCULAR HEMOGLOBIN 31 pg (25-34); MEAN CORPUSCULAR HGB CONC 32 g/dL (32-36); MEAN CORPUSCULAR VOLUME 95 fL (80-99); MEAN PLATELET VOLUME 9.1 fL (9.0-12.2); MONOCYTES # (AUTO) 0.6 10^3/uL (0.0-1.0); MONOCYTES % (AUTO) 13 % (0-12); NEUTROPHILS # (AUTO) 2.9 10^3/uL (1.8-7.8); NEUTROPHILS % (AUTO) 64 % (42-75); PLATELET COUNT 289 10^3/uL (130-400); WHITE BLOOD COUNT 4.4 10^3/uL (4.3-11.0)
[2020-08-28 10:49] LABS: ALANINE AMINOTRANSFERASE 22 U/L (0-55); ALBUMIN 4.2 GM/DL (3.2-4.5); ALKALINE PHOSPHATASE 56 U/L (40-136); BILIRUBIN,TOTAL 0.5 MG/DL (0.1-1.0); BUN/CREATININE RATIO 13; CALCIUM 9.3 MG/DL (8.5-10.1); CARBON DIOXIDE 31 MMOL/L (21-32); CHLORIDE 101 MMOL/L (98-107); CREATININE SERUM 0.88 MG/DL (0.60-1.30); GFR ESTIMATED > 60; GLUCOSE 89 MG/DL (70-105); POTASSIUM 4.3 MMOL/L (3.6-5.0); SODIUM 138 MMOL/L (135-145); TOTAL PROTEIN 7.3 GM/DL (6.4-8.2)
== END 2020-11-26 | disposition home or self-care (01) ==
LOC: ONC 09:53
PROVIDERS: ATTEND Internal Medicine Hematology & Oncology
DX: D47.2 Monoclonal gammopathy (principal); M25.562 Pain in left knee; I11.0 Hypertensive heart disease with heart failure; I50.31 Acute diastolic (congestive) heart failure; Z96.661 Presence of right artificial ankle joint; Z96.652 Presence of left artificial knee joint
CPT/HCPCS: 80053; 82232; 82784; 83615; 83883; 84155; 84165; 85025; 99213

== ENCOUNTER 2021-02-08 09:38 | Outpatient (RCR) | payer MEDICARE ==
[~2021-02-08 09:38] MED LIST changes: +CYCL10TA25 PO; -CYCL10TA9 PO
== END 2021-02-09 | disposition home or self-care (01) ==
PROVIDERS: ATTEND Internal Medicine
DX: M54.16 Radiculopathy, lumbar region (principal)

== ENCOUNTER 2021-02-21 08:57 | Outpatient (RCR) | payer MEDICARE | END 2021-03-12 | disposition home or self-care (01) | PROVIDERS: ATTEND Internal Medicine | DX: M54.16 Radiculopathy, lumbar region (principal); I10 Essential (primary) hypertension ==

== ENCOUNTER 2021-03-07 13:36 | Outpatient (RCR) | payer MEDICARE ==
[2021-03-07 13:47] LABS: BASOPHILS % (AUTO) 1 % (0-10); EOSINOPHILS # (AUTO) 0.2 10^3/uL (0.0-0.3); EOSINOPHILS % (AUTO) 3 % (0-10); HEMATOCRIT 40 % (35-52); HEMOGLOBIN 13.4 g/dL (11.5-16.0); LYMPHOCYTES # (AUTO) 1.2 10^3/uL (1.0-4.0); LYMPHOCYTES % (AUTO) 18 % (12-44); MEAN CORPUSCULAR HEMOGLOBIN 31 pg (25-34); MEAN CORPUSCULAR HGB CONC 33 g/dL (32-36); MEAN CORPUSCULAR VOLUME 94 fL (80-99); MEAN PLATELET VOLUME 9.4 fL (9.0-12.2); MONOCYTES # (AUTO) 0.7 10^3/uL (0.0-1.0); MONOCYTES % (AUTO) 11 % (0-12); NEUTROPHILS # (AUTO) 4.3 10^3/uL (1.8-7.8); NEUTROPHILS % (AUTO) 66 % (42-75); PLATELET COUNT 308 10^3/uL (130-400); WHITE BLOOD COUNT 6.4 10^3/uL (4.3-11.0)
[2021-03-07 14:18] LABS: ALBUMIN 4.2 GM/DL (3.2-4.5); BILIRUBIN,TOTAL 0.3 MG/DL (0.1-1.0); CALCIUM 10.2 MG/DL (8.5-10.1); CREATININE SERUM 1.11 MG/DL (0.60-1.30); POTASSIUM 4.3 MMOL/L (3.6-5.0); TOTAL PROTEIN 7.4 GM/DL (6.4-8.2)
== END 2021-03-12 | disposition home or self-care (01) ==
LOC: ONC 13:36
PROVIDERS: ATTEND Internal Medicine
DX: D47.2 Monoclonal gammopathy (principal)
CPT/HCPCS: 36415; 80053; 82232; 82784; 83615; 83883; 84155; 84165; 85025

== ENCOUNTER 2021-07-05 08:53 | Outpatient (RCR) | payer MEDICARE ==
[~2021-07-05 08:53] MED LIST changes: +DAPT500V18 IV; -DAPT500V3 IV; -RIFA300C3 PO; +RIFA300C8 PO
== END 2021-07-10 | disposition home or self-care (01) ==
PROVIDERS: ATTEND Internal Medicine
DX: M47.816 Spondylosis without myelopathy or radiculopathy, lumbar region (principal); I10 Essential (primary) hypertension

== ENCOUNTER → 2021-08-20 | Outpatient (CLI) | payer MEDICARE ==
--- NOTE | 2021-08-20 14:59 | Diagnostic Imaging Report ---
INDICATION: Routine screening. COMPARISON: 07/24/2020 and 07/02/2019. TECHNIQUE: 2D and 3D bilateral screening mammography was performed with CAD. FINDINGS: Scattered fibroglandular densities are identified bilaterally. The circumscribed nodule in the upper outer left breast appears stable. No new mass or malignant-appearing microcalcifications are seen. There are benign calcifications bilaterally. The axillae are unremarkable. IMPRESSION: No mammographic features suspicious for malignancy are identified. ACR BI-RADS Category 2: Benign findings. Result letter will be mailed to the patient. Note: At least 10% of breast cancer is not imaged by mammography. Dictated by: Dictated on workstation # [id number]
== END ==
LOC: RAD 11:01
PROVIDERS: ATTEND Internal Medicine
DX: Z12.31 Encounter for screening mammogram for malignant neoplasm of breast (principal)
CPT/HCPCS: 77063; 77067

== ENCOUNTER → 2021-11-09 | Outpatient (RCR) | payer MEDICARE | END | disposition home or self-care (01) | PROVIDERS: ATTEND Internal Medicine | DX: M47.816 Spondylosis without myelopathy or radiculopathy, lumbar region (principal); I10 Essential (primary) hypertension ==

== ENCOUNTER 2021-12-31 09:26 | Outpatient (RCR) | payer MEDICARE ==
[~2021-12-31 09:26] MED LIST changes: +ALBU8.5H6 IH; -RT-ALBUINH IH
== END 2022-01-09 | disposition home or self-care (01) ==
PROVIDERS: ATTEND Internal Medicine
DX: M47.816 Spondylosis without myelopathy or radiculopathy, lumbar region (principal); I10 Essential (primary) hypertension

== ENCOUNTER → 2022-03-15 | Outpatient (CLI) | payer MEDICARE | LOC: CARD 13:50 | PROVIDERS: ATTEND Internal Medicine Cardiovascular Disease | DX: I51.7 Cardiomegaly (principal); I34.0 Nonrheumatic mitral (valve) insufficiency | CPT/HCPCS: 93306 ==

== ENCOUNTER → 2022-08-26 | Outpatient (CLI) | payer MEDICARE ==
[~2022-08-26] MED LIST changes: -TIMO5DRO27 OU; +TIMO5DRO39 OU
--- NOTE | 2022-08-26 16:22 | Diagnostic Imaging Report ---
INDICATION: Routine screening. COMPARISON: 08/20/2021 and 07/24/2020. TECHNIQUE: 2D and 3D bilateral screening mammography was performed with CAD. FINDINGS: Scattered fibroglandular densities are identified bilaterally. The parenchymal pattern is stable. No mass or malignant-appearing microcalcifications are seen. There are benign calcifications. The axillae are unremarkable. IMPRESSION: No mammographic features suspicious for malignancy are identified. ACR BI-RADS Category 2: Benign findings. Result letter will be mailed to the patient. Note: At least 10% of breast cancer is not imaged by mammography. Dictated by: Dictated on workstation # [id number]
== END ==
LOC: RAD 14:14
PROVIDERS: ATTEND Internal Medicine
DX: Z12.31 Encounter for screening mammogram for malignant neoplasm of breast (principal)
CPT/HCPCS: 77063; 77067

== ENCOUNTER 2022-12-18 20:19 | Outpatient (CLI) | payer MEDICARE | END 2022-12-19 05:41 | LOC: CANPRECLI → SLEEP 20:19 | PROVIDERS: ATTEND Nurse Practitioner | DX: G47.33 Obstructive sleep apnea (adult) (pediatric) (principal); R06.83 Snoring; G47.36 Sleep related hypoventilation in conditions classified elsewhere | CPT/HCPCS: 95810 ==